=== PATIENT | male | born 1965 | race African-American/Black ===

== ENCOUNTER → 2016-05-27 | Outpatient (CLI) | payer OTHER ==
[~2016-05-27] MED LIST: AMLO10TA2 PO; INSU100V6 SQ; METF500T4 PO; NITR-65 PO; [UNRECOGNIZED DRUG - OTHER]; iron; vitamin c
--- OUTSIDE RECORDS SUMMARY | 2016-05-27 13:56 | XMS REPORT | Continuity of Care Document ---
Author Author [facility] Address Unknown Phone Unavailable Allergies Active Description Code Type Severity Reaction Onset Reported/Identified Relationship to Patient Clinical Status Yes No Known Drug Allergies [id number] Drug Allergy Unknown N/ A 05/18/2015 Medications Problems Date Dx Coded Attending Type Code Diagnosis Diagnosed By 02/28/2013 LATRICE SUPERVISOR BINDERYMINNIE KeatingNDA S 250.02 DIABETES II UNCONTROLLED (UNCOMPLICATED ) 02/28/2013 LATRICE MILLER TERRY S 401.1 HYPERTENSION, BENIGN ESSENTIAL 02/28/2013 LATRICE SUPERVISOR BINDERY, TERRY S V70.0 EXAM - ROUTINE H&P 02/28/2013 LATRICE SUPERVISOR BINDERY, TERRY S 250.02 DIABETES II UNCONTROLLED (UNCOMPLICATED ) 02/28/2013 LATRICE SUPERVISOR BINDERY, TERRY S 401.1 HYPERTENSION, BENIGN ESSENTIAL 02/28/2013 LATRICE SUPERVISOR BINDERY, TERRY S V70.0 EXAM - ROUTINE H&P 02/28/2013 LATRICE SUPERVISOR BINDERY, TERRY S 250.02 DIABETES II UNCONTROLLED (UNCOMPLICATED ) 02/28/2013 LATRICE SUPERVISOR BINDERY, TERRY S 401.1 HYPERTENSION, BENIGN ESSENTIAL 02/28/2013 LATRICE SUPERVISOR BINDERY, TERRY S V70.0 EXAM - ROUTINE H&P 02/28/2013 LATRICE SUPERVISOR BINDERY, TERRY S 250.02 DIABETES II UNCONTROLLED (UNCOMPLICATED ) 02/28/2013 LATRICE SUPERVISOR BINDERY, TERRY S 401.1 HYPERTENSION, BENIGN ESSENTIAL 02/28/2013 LATRICE SUPERVISOR BINDERY, TERRY S V70.0 EXAM - ROUTINE H&P 02/28/2013 LATRICE SUPERVISOR BINDERY, TERRY S 250.02 DIABETES II UNCONTROLLED (UNCOMPLICATED ) 02/28/2013 LATRICE SUPERVISOR BINDERY, TERRY S 401.1 HYPERTENSION, BENIGN ESSENTIAL 02/28/2013 LATRICE SUPERVISOR BINDERY, TERRY S V70.0 EXAM - ROUTINE H&P 02/28/2013 LATRICE SUPERVISOR BINDERY, TERRY S 250.02 DIABETES II UNCONTROLLED (UNCOMPLICATED ) 02/28/2013 LATRICE SUPERVISOR BINDERY, TERRY S 401.1 HYPERTENSION, BENIGN ESSENTIAL 02/28/2013 LATRICE SUPERVISOR BINDERY, TERRY S V70.0 EXAM - ROUTINE H&P 04/06/2013 LATRICE SUPERVISOR BINDERY, TERRY S 285.9 ANEMIA 04/06/2013 LATRICE SUPERVISOR BINDERY, TERRY S 285.9 ANEMIA 04/06/2013 LATRICE SUPERVISOR BINDERY, TERRY S 285.9 ANEMIA 04/06/2013 LATRICE SUPERVISOR BINDERY, TERRY S 285.9 ANEMIA 04/06/2013 LATRICE SUPERVISOR BINDERY, TERRY S 285.9 ANEMIA 04/12/2013 LATRICE SUPERVISOR BINDERY, TERRY S 244.9 HYPOTHYROIDISM 04/12/2013 LATRICE SUPERVISOR BINDERY, TERRY S 250.00 DIABETES MELLITUS TYPE 2 04/12/2013 LATRICE SUPERVISOR BINDERY, TERRY S 244.9 HYPOTHYROIDISM 04/12/2013 LATRICE SUPERVISOR BINDERY, TERRY S 250.00 DIABETES MELLITUS TYPE 2 04/12/2013 LATRICE SUPERVISOR BINDERY, TERRY S 244.9 HYPOTHYROIDISM 04/12/2013 LATRICE SUPERVISOR BINDERY, TERRY S 250.00 DIABETES MELLITUS TYPE 2 04/12/2013 LATRICE SUPERVISOR BINDERY, TERRY S 244.9 HYPOTHYROIDISM 04/12/2013 LATRICE SUPERVISOR BINDERY, TERRY S 250.00 DIABETES MELLITUS TYPE 2 04/12/2013 LATRICE SUPERVISOR BINDERY, TERRY S 244.9 HYPOTHYROIDISM 04/12/2013 LATRICE SUPERVISOR BINDERY, TERRY S 250.00 DIABETES MELLITUS TYPE 2 04/17/2013 LATRICE SUPERVISOR BINDERY, TERRY S 242.90 HYPERTHYROIDISM 04/17/2013 LATRICE SUPERVISOR BINDERY, TERRY S 242.90 HYPERTHYROIDISM 04/17/2013 LATRICE SUPERVISOR BINDERY, TERRY S 242.90 HYPERTHYROIDISM 04/17/2013 LATRICE SUPERVISOR BINDERY, TERRY S 242.90 HYPERTHYROIDISM 03/05/2014 LATRICE SUPERVISOR BINDERY, TERRY S 782.3 EDEMA 03/05/2014 LATRICE SUPERVISOR BINDERY, TERRY S 786.2 COUGH 03/05/2014 LATRICE SUPERVISOR BINDERY, TERRY S 782.3 EDEMA 03/05/2014 TERRY POLLARD APRN S 786.2 COUGH 03/27/2014 TERRY POLLARD APRN S 459.81 VENOUS (PERIPHERAL) INSUFFICIENCY UNSPECIFIED 04/30/2014 TERRY POLLARD HAT FORMER Ot 729.81 06/04/2014 TERRY POLLARD HAT FORMER Ot 729.81 12/28/2014 TERRY POLLARD HAT FORMER Ot 729.81 05/18/2015 JUNI MAKI, SHARMIN T Ot E11.649 05/18/2015 JUNI MAKI, SHARMIN T Ot E87.6 05/18/2015 JUNI MAKI, SHARMIN T Ot I10 05/18/2015 JUNI MAKI, SHARMIN T Ot N17.9 05/18/2015 JUNI MAKI, SHARMIN T Ot N39.0 05/18/2015 TERRY POLLARD HAT FORMER Ot 729.81 05/31/2015 JUNI MAKI, SHARMIN T Ot E11.649 05/31/2015 JUNI MAKI, SHARMIN T Ot E87.6 05/31/2015 JUNI MAKI, SHARMIN T Ot I10 05/31/2015 JUNI MAKI, SHARMIN T Ot N17.9 05/31/2015 JUNI MAKI, SHARMIN T Ot N39.0 Procedures Code Description [place] [address] A1C (IN-HOUSE) 59508 MICRO ALBUMIN-IN HOUSE 02/28/2013 39234 MICROALBUMIN 92150 ROUTINE VENIPUNCTURE 04/06/2013 IRGROUP IRON GROUP (Iron,TIBC, Ferritin) 04/06/2013 [id number] GFR CALC (RESULT ONLY) 04/06/2013 45702 CMP 04/06/2013 83282 LIPID PANEL 04/06 42436 CBC 04/06/2013 77652 TSH 04/06/2013 62123 C-PEPTIDE 2013 34030 IRON SERUM 2013 92732 IRON BNDNG CAP 76143 FERRITIN 2013 50474 ROUTINE VENIPUNCTURE 03/05/2014 69740 MICRO ALBUMIN-IN HOUSE 03/05/2014 88374 A1C (IN-HOUSE) 04691 CBC 03/06/2014 24641 URIC ACID 2013 21881 MICROALBUMIN Results Encounters ACCT No. Visit Date/Time Discharge Status Pt. Type Provider Facility Loc./Unit Complaint [id number] 03/27/2014 11:38:00 03/27/2014 23: 59:59 CLS Outpatient TERRY POLLARD APRN [id number] 03/05/2014 16:08:00 03/05/2014 23: 59:59 CLS Outpatient TERRY POLLARD APRN [id number] 10/24/2013 14:36:00 10/24/2013 23: 59:59 CLS Outpatient TERRY POLLARD APRN [id number] 04/17/2013 09:43:00 04/17/2013 23: 59:59 CLS Outpatient TERRY POLLARD APRN [id number] 04/06/2013 09:25:00 04/06/2013 23: 59:59 CLS Outpatient TERRY POLLARD APRN [id number] 02/28/2013 09:49:00 02/28/2013 23: 59:59 CLS Outpatient TERRY POLLARD APRN
--- NOTE | 2016-05-27 16:10 | Diagnostic Imaging Report ---
Bilateral renal ultrasound. INDICATION: Chronic renal failure. FINDINGS: The right kidney is 9.1 cm and the left kidney is 8.2 cm in length. The lower pole of the left kidney is not well seen. There is no hydronephrosis or focal lesion. There is diffuse significant wall thickening of the urinary bladder which may relate to cystitis. IMPRESSION: Diffuse thickening of the urinary bladder wall suggestive of cystitis. Dictated by: Dictated on workstation # [id number]
== END ==
LOC: RAD 13:52
PROVIDERS: ATTEND Nurse Practitioner
DX: N32.9 Bladder disorder, unspecified (principal); I12.9 Hypertensive chronic kidney disease with stage 1 through stage 4 chronic kidney disease, or unspecified chronic kidney disease; N18.4 Chronic kidney disease, stage 4 (severe); D64.9 Anemia, unspecified; E88.09 Other disorders of plasma-protein metabolism, not elsewhere classified; E83.39 Other disorders of phosphorus metabolism; E87.5 Hyperkalemia
CPT/HCPCS: 76770

== ENCOUNTER 2016-06-28 08:03 | Emergency (ER) | payer OTHER ==
[~2016-06-28] VITALS: Ht 170.2 cm; Wt 86.2 kg
[2016-06-28 08:37] LABS: BASOPHILS % (AUTO) 0 % (0-10); EOSINOPHILS # (AUTO) 0.2 10^3/uL (0.0-0.3); EOSINOPHILS % (AUTO) 2 % (0-10); LYMPHOCYTES % (AUTO) 20 % (12-44); MEAN CORPUSCULAR HEMOGLOBIN 25 PG (25-34); MEAN CORPUSCULAR HGB CONC 34 G/DL (32-36); MEAN CORPUSCULAR VOLUME 73 FL (80-99); MEAN PLATELET VOLUME 9.5 FL (7.4-10.4); MONOCYTES % (AUTO) 11 % (0-12); NEUTROPHILS # (AUTO) 6.5 X 10^3 (1.8-7.8); NEUTROPHILS % (AUTO) 67 % (42-75); PLATELET COUNT 269 10^3/uL (130-400); RED BLOOD COUNT 3.64 10^6/uL (4.35-5.85); RED CELL DISTRIBUTION WIDTH 16.2 % (10.0-14.5); WHITE BLOOD COUNT 9.7 10^3/uL (4.3-11.0)
--- NOTE | 2016-06-28 08:42 | ED Lower Extremity ---
General Chief Complaint: Lower Extremity Stated Complaint: LEG SWELLING Source: patient (PT IS LIMITED HISTORIAN), other (SON GIVES MOST INFORMATION) History of Present Illness Time seen by provider: 08:08 Initial Comments PT ARRIV[place] [facility] AND [employer]NER WAS DOING FOOT WASHING AND NOTED THAT PT'S LEGS WERE SWOLLEN AND BROUGHT HIM TO ER PT HAS CHRONIC LEG SWELLING AND HAS BEEN WORSE FOR 1 1/2 MONTHS HAS CHRONIC LEG PAIN, WORSE FOR 1 1/2 MONTHS--HAS NEUROPATHY, HAS NOT TAKEN ANYTHING FOR PAIN HAS BEEN SHORT OF BREATH FOR AT LEAST 2 MONTHS NO CHEST PAIN NO FEVER NO WOUNDS TO LEGS PT HAS STAGE 4 RENAL FAILURE AND 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 --IS NOT ON DIALYSIS YET PT STATES NONE OF THESE SYMPTOMS ARE DIFFERENT IN ANY WAY AND HIS DRS ARE AWARE , HAVE DISCUSSED MEDICATION CHANGES, BUT HAVE NOT DONE ANY CHANGES YET PT HAS NOT TAKEN ANY OF HIS MEDICATIONS TODAY PCP: RYAN, THOMAS POLLARD WIRE MACHINE OPERATOR: ANDRES COSME Allergies and Home Medications Allergies Coded Allergies: No Known Drug Allergies (Unverified , 05/18/15) Home Medications Amlodipine Besylate 10 Mg Tablet, 10 MG PO DAILY, #1 Prescribed by: DEONTE PITTS on 05/18/152010 Insulin Glargine,Hum.rec.anlog 100 Unit/1 Ml Vial, 10 UNIT SQ HS, (Reported) Metformin HCl 500 Mg Tablet, 500 MG PO BID, (Reported) Nitrofurantoin Monohyd/M-Cryst 100 Mg Capsule, 1 TAB PO BID, #10 Prescribed by: DEONTE PITTS on 05/18/152010 [bp med x 2] , (Reported) [iron] , (Reported) [vitamin c] , (Reported) Constitutional: no symptoms reported Respiratory: see HPI Cardiovascular: No chest pain, edema, No palpitations, No syncope, No vascular heart diseas Gastrointestinal: no symptoms reported Musculoskeletal: see HPI Skin: no symptoms reported Psychiatric/Neurological: See HPI, Pre-Existing Deficit Past Tcxshzj-Pzonek-Haxicr Hx Patient Social History Alcohol Use: Denies Use Recreational Drug Use: No Smoking Status: Never a Smoker 2nd Hand Smoke Exposure: No Recent Foreign Travel: No Contact w/Someone Who Travel: No Recent Hopitalizations: No Surgeries HX Surgeries: No Respiratory Hx Respiratory Disorders: No Cardiovascular Hx Cardiac Disorders: Yes (CHRONIC VENOUS INSUFFICIENCY) Cardiac Disorders: Hypertension, Peripheral Vascular Neurological Hx Neurological Disorders: Yes Neurological Disorders: Neuropathy Genitourinary Hx Genitourinary Disorders: Yes Genitourinary Disorders: Renal Failure Gastrointestinal Hx Gastrointestinal Disorders: No Musculoskeletal Hx Musculoskeletal Disorders: Yes (LEFT CHARCOT FOOT) Endocrine Hx Endocrine Disorders: Yes Endocrine Disorders: Diabetes, Insulin dep HEENT HX ENT Disorders: No Cancer Hx Cancer: No Psychosocial Hx Psychiatric Problems: No Blood Transfusions Hx Blood Disorders: Yes (iron deficiency anemia) Physical Exam Vital Signs Vital Sign - Last 12Hours 06/28/16 08:10 Temp 98.1 Pulse 89 Resp 20 B/P (MAP) 170/90 Pulse Ox 97 O2 Delivery Room Air Capillary Refill : General Appearance: WD/WN, no apparent distress, other (SMILING, TALKATIVE) Cardiovascular: no JVD, no murmur, other (REGULARLY IRREGULAR--BIGEMINY ON MONITOR) Respiratory: normal breath sounds, no respiratory distress, no accessory muscle use Gastrointestinal: normal bowel sounds, non tender, soft Legs: bilateral leg non-tender, bilateral leg other (3+ EDEMA ON RIGHT, 2+ EDEMA ON LEFT. CHRONIC VENOUS STASIS CHANGES BILATERALLY WITH VERY HARD/WOODY INDURATION. 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, no motor/sensory deficits, alert, normal mood/affect, oriented x 3 Skin: normal color, warm/dry Progress/Results/Core Measures Results/Orders Lab Results Laboratory Tests Test 06/28/16 08:30 Range/Units White Blood Count 9.7 4.3-11.0 10^3/uL Red Blood Count 3.64 L 4.35-5.85 10^6/uL Hemoglobin 8.9 L 13.3-17.7 G/DL Hematocrit 26 L 40-54 % Mean Corpuscular Volume 73 L 80-99 FL Mean Corpuscular Hemoglobin 25 25-34 PG Mean Corpuscular Hemoglobin Concent 34 32-36 G/DL Red Cell Distribution Width 16.2 H 10.0-14.5 % Platelet Count 269 130-400 10^3/uL Mean Platelet Volume 9.5 7.4-10.4 FL Neutrophils (%) (Auto) 67 42-75 % Lymphocytes (%) (Auto) 20 12-44 % Monocytes (%) (Auto) 11 0-12 % Eosinophils (%) (Auto) 2 0-10 % Basophils (%) (Auto) 0 0-10 % Neutrophils # (Auto) 6.5 1.8-7.8 X 10^3 Lymphocytes # (Auto) 2.0 1.0-4.0 X 10^3 Monocytes # (Auto) 1.0 0.0-1.0 X 10^3 Eosinophils # (Auto) 0.2 0.0-0.3 10^3/uL Basophils # (Auto) 0.0 0.0-0.1 10^3/uL Prothrombin Time 15.9 H 12.2-14.7 SEC INR Comment 1.3 0.8-1.4 Activated Partial Thromboplast Time 32 24-35 SEC Sodium Level 139 135-145 MMOL/L Potassium Level 5.0 3.6-5.0 MMOL/L Chloride Level 110 H 98-107 MMOL/L Carbon Dioxide Level 17 L 21-32 MMOL/L Anion Gap 12 5-14 MMOL/L Blood Urea Nitrogen 53 H 7-18 MG/DL Creatinine 4.76 H 0.60-1.30 MG/DL Estimat Glomerular Filtration Rate 16 BUN/Creatinine Ratio 11 Glucose Level 194 H 70-105 MG/DL Calcium Level 6.9 L 8.5-10.1 MG/DL Magnesium Level 1.8 1.8-2.4 MG/DL Total Bilirubin 0.7 0.1-1.0 MG/DL Aspartate Amino Transf (AST/SGOT) 18 5-34 U/L Alanine Aminotransferase (ALT/SGPT) 22 0-55 U/L Alkaline Phosphatase 161 H 40-136 U/L Troponin I < 0.30 <0.30 NG/ML B-Type Natriuretic Peptide 3956.7 H <100.0 PG/ML Total Protein 6.3 L 6.4-8.2 G/DL Albumin 3.4 3.2-4.5 G/DL My Orders Orders - VIKY WALDEN DO Saline Lock/Iv-Start (06/28/16 08:08) Ekg Tracing (06/28/16 08:08) Monitor-Rhythm Ecg Trace Only (06/28/16 08:08) BNP (06/28/16 08:08) Cbc With Automated Diff (06/28/16 08:08) Comprehensive Metabolic Panel (06/28/16 08:08) Magnesium (06/28/16 08:08) Protime With Inr (06/28/16 08:08) Partial Thromboplastin Time (06/28/16 08:08) Troponin I (06/28/16 08:08) Chest Pa/Lat (2 View) (06/28/16 08:08) Us Venous Lower Ext Rt (06/28/16 08:26) Furosemide Injection (Lasix Injection) (06/28/16 10:00) Vital Signs/I&O Vital Sign - Last 12Hours 06/28/16 08:10 Temp 98.1 Pulse 89 Resp 20 B/P (MAP) 170/90 Pulse Ox 97 O2 Delivery Room Air ECG Initial ECG Impression Time: 08:21 Initial ECG Comparisson: No Previous ECG Available Comment BIGEMINY NO ST SEGMENT CHANGES Diagnostic Imaging Comments CXR--TINY BILATERAL PLEURAL EFFUSIONS, OTHERWISE NO ACUTE PROCESS, PER RADIOLOGIST REPORT @ 0915 ULTRASOUND RIGHT LEG--NO DVT PER RADIOLOGIST REPORT @ 0948 Reviewed: Reviewed by Me Departure Impression Impression: Primary Impression: CHRONIC LEG EDEMA Additional Impressions: Chronic renal failure Chronic venous insufficiency Disposition: 01 HOME, SELF-CARE Condition: Stable Departure-Patient Inst. Referrals: [facility] (PCP/Family) Primary Care Physician Patient Instructions: Dependent Edema (DC), Kidney Failure (DC) Add. Discharge Instructions: ELEVATE LEGS MUCH POSSIBLE INCREASE YOUR LASIX TO 2 PILLS A DAY FOLLOW UP WITH YOUR DR AT [facility] AND YOUR WIRE MACHINE OPERATOR THIS WEEK FOR FURTHER CARE All discharge instructions reviewed with patient and/or family. Voiced understanding. VIKY WALDEN DO Jun 28, 2016 08:42
[2016-06-28 08:46] LABS: INR 1.3 (0.8-1.4); PROTHROMBIN TIME PATIENT 15.9 SEC (12.2-14.7)
[2016-06-28 08:54] LABS: ALANINE AMINOTRANSFERASE 22 U/L (0-55); ALBUMIN 3.4 G/DL (3.2-4.5); ANION GAP 12 MMOL/L (5-14); ASPARTATE AMINO TRANSFERASE 18 U/L (5-34); BILIRUBIN,TOTAL 0.7 MG/DL (0.1-1.0); BLOOD UREA NITROGEN 53 MG/DL (7-18); BUN/CREATININE RATIO 11; CALCIUM 6.9 MG/DL (8.5-10.1); CARBON DIOXIDE 17 MMOL/L (21-32); CHLORIDE 110 MMOL/L (98-107); CREATININE SERUM 4.76 MG/DL (0.60-1.30); GFR ESTIMATED 16; GLUCOSE 194 MG/DL (70-105); MAGNESIUM 1.8 MG/DL (1.8-2.4); SODIUM 139 MMOL/L (135-145); TOTAL PROTEIN 6.3 G/DL (6.4-8.2)
--- NOTE | 2016-06-28 08:55 | Diagnostic Imaging Report ---
EXAM: CHEST PA/LAT (2 VIEW) INDICATION: Left lower extremity swelling. COMPARISON: None. FINDINGS: Normal heart size and pulmonary vascularity. Tiny bilateral pleural effusions or thickening. No focal pulmonary opacity or pneumothorax. Osseous structures are unremarkable. IMPRESSION: Tiny bilateral pleural effusions or thickening. Remainder negative. Dictated by: Dictated on workstation # [id number]
[2016-06-28 08:59] LABS: TROPONIN I < 0.30 NG/ML (<0.30)
--- NOTE | 2016-06-28 09:47 | Diagnostic Imaging Report ---
PROCEDURE: US right lower extremity venous. TECHNIQUE: Multiple real-time grayscale images were obtained over the right lower extremity in various projections. Additional duplex Doppler and color Doppler images were also obtained. INDICATION: Right lower extremity swelling. COMPARISON: None. FINDINGS: The right common femoral vein, superficial femoral vein, profunda femoris, and popliteal veins are normal. These vessels show normal compressibility, color flow, and doppler augmentation. The deep calf veins, although not very well seen, demonstrate no distinct intraluminal thrombus. IMPRESSION: Negative venous Doppler of the right lower extremity. Dictated by: Dictated on workstation # [id number]
[2016-06-28] MEDS ORDERED: FUROSEMIDE 40 MG/4 ML INJ (LASIX) IVP ONE (10:00)
[2016-06-28 10:30] VITALS: BP 209/117
== END 2016-06-28 10:30 | disposition home or self-care (01) ==
LOC: EDUNIT# 08:03 → ER 08:04
DX: R22.43 Localized swelling, mass and lump, lower limb, bilateral (principal); I12.9 Hypertensive chronic kidney disease with stage 1 through stage 4 chronic kidney disease, or unspecified chronic kidney disease; N18.4 Chronic kidney disease, stage 4 (severe); E11.40 Type 2 diabetes mellitus with diabetic neuropathy, unspecified; I87.2 Venous insufficiency (chronic) (peripheral); Z79.84 Long term (current) use of oral hypoglycemic drugs; Z79.4 Long term (current) use of insulin; Z79.899 Other long term (current) drug therapy
CPT/HCPCS: 36415; 71020; 80053; 83735; 83880; 84484; 85025; 85610; 85730; 93005; 93041; 96374

== ENCOUNTER 2017-03-28 14:04 | Emergency (ER) | payer SELFPAY ==
[~2017-03-28] VITALS: Ht 172.7 cm; Wt 74.8 kg
--- OUTSIDE RECORDS SUMMARY | 2017-03-28 14:09 | XMS REPORT ---
Author Author TERRY POLLARD [facility] Address [address] [place] [address] Care Team Providers Care Wrapping Machine Helper Name Role Phone TERRY POLLARD Unavailable PROBLEMS Type Condition ICD9-CM Code [id number] Code Onset Dates Condition Status SNOMED Code Problem Charcot foot due to diabetes mellitus E11.610 Active 75633430 Problem Type II or unspecified type diabetes mellitus with neurological manifestations, not stated as uncontrolled E11.49 Active 83837702 Problem Wqjjvnx-Kpxmd-Njhqz disease-like deformity of foot 356.1 Active 344274746 Problem Retinopathy due to secondary diabetes mellitus, with macular edema, 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 Active 9578296 Problem Chronic renal failure, unspecified stage N18.9 Active 95956199 Problem Type 2 diabetes mellitus without complications E11.9 Active 009926490 Problem Type 2 diabetes mellitus with diabetic chronic kidney disease, 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
--- OUTSIDE RECORDS SUMMARY | 2017-03-28 14:09 | XMS REPORT ---
Author Author TERRY POLLARD [facility] Address [address] [place] [address] Care Team Providers Care Tire Cord Weaver Name Role Phone TERRY POLLARD Unavailable PROBLEMS Type Condition ICD9-CM Code KYW38-SL Code Onset Dates Condition Status SNOMED Code Problem Charcot foot due to diabetes mellitus E11.610 Active 86302215 Problem Type II or unspecified type diabetes mellitus with neurological manifestations, not stated as uncontrolled E11.49 Active 89106311 Problem Gifotgg-Jdumq-Xzhzz disease-like deformity of foot 356.1 Active 485296021 Problem Retinopathy due to secondary diabetes mellitus, with macular edema, 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 Active 0506499 Problem Chronic renal failure, unspecified stage N18.9 Active 37422588 Problem Type 2 diabetes mellitus without complications E11.9 Active 939372661 Problem Type 2 diabetes mellitus with diabetic chronic kidney disease, 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 Protein,Total,Urine 439.6 Not Estab. Protein/Creat Ratio 6218 0-200 UA W/ MICROSCOPY 2016-05-15 Specific Boody 1.016 1.005-1.030 pH 6.5 5.0-7.5 Urine-Color Yellow Yellow Appearance Clear Clear WBC Esterase Negative Negative Protein 4+ Negative/Trace Glucose Negative Negative Ketones Negative Negative Occult Blood 2+ Negative Bilirubin Negative Negative Urobilinogen,Semi-Qn 0.2 0.2-1.0 Nitrite, Urine Negative Negative Microscopic Examination See below: WBC 0-5 0 - 5 RBC 11-30 0 - 2 Epithelial Cells (non renal) None seen 0 - 10 Mucus Threads Present Not Estab. Bacteria Few None seen/Few CBC 2016-05-15 WBC 7.8 3.4-10.8 RBC 2.86 4.14-5.80 Hemoglobin 7.5 12.6-17.7 Hematocrit 22.6 37.5-51.0 MCV 79 79-97 MCH 26.2 26.6-33.0 MCHC 33.2 31.5-35.7 RDW 17.5 12.3-15.4 Platelets 236 150-379 Neutrophils 69 Lymphs 22 Monocytes 7 Eos 2 Basos 0 Neutrophils (Absolute) 5.3 1.4-7.0 Lymphs (Absolute) 1.8 0.7-3.1 Monocytes(Absolute) 0.6 0.1-0.9 Eos (Absolute) 0.2 0.0-0.4 Baso (Absolute) 0.0 0.0-0.2 Immature Granulocytes 0 Immature Grans (Abs) 0.0 0.0-0.1 RENAL PROFILE 2016-05-15 Glucose, Serum 83 65-99 BUN 35 6-24 Creatinine, Serum 4.06 0.76-1.27 eGFR If NonAfricn Am 16 >59 eGFR If Africn Am 19 >59 BUN/Creatinine Ratio 9 9-20 Sodium, Serum 141 134-144 Potassium, Serum 6.1 3.5-5.2 Chloride, Serum 107 96-106 Carbon Dioxide, Total 18 18-29 Calcium, Serum 6.8 8.7-10.2 Phosphorus, Serum 5.6 2.5-4.5 Albumin, Serum 3.7 3.5-5.5 PROCEDURES Procedure Date Ordered Result Body Site ASSAY OF PROTEIN, URINE May 15, 2016 ASSAY OF URINE CREATININE May 15, 2016 COMPLETE CBC W/AUTO DIFF WBC May 15, 2016 URINALYSIS, AUTO W/SCOPE May 15, 2016 VENIPUNCT, ROUTINE* May 15, 2016 RENAL FUNCTION PANEL May 15, 2016 IMMUNIZATIONS No Known Immunizations MEDICAL (GENERAL) HISTORY Type Description Date Medical History diabetes Type II Medical History hypertension Medical History Charcot foot due to diabetes mellitus Hospitalization History ER for low blood sugar 05/28
--- OUTSIDE RECORDS SUMMARY | 2017-03-28 14:10 | XMS REPORT ---
Author Author TERRY POLLARD [facility] Address [address] [place] [address] Care Team Providers Care Hotel Housekeeper Name Role Phone TERRY POLLARD Unavailable PROBLEMS Type Condition ICD9-CM Code ZMU69-BM Code Onset Dates Condition Status SNOMED Code Problem Charcot foot due to diabetes mellitus E11.610 Active 52507415 Problem Type II or unspecified type diabetes mellitus with neurological manifestations, not stated as uncontrolled E11.49 Active 35139566 Problem Bpporjv-Jsunk-Qzyrw disease-like deformity of foot 356.1 Active 328987252 Problem Retinopathy due to secondary diabetes mellitus, with macular edema, 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 Active 9767468 Problem Chronic renal failure, unspecified stage N18.9 Active 91007523 Problem Type 2 diabetes mellitus without complications E11.9 Active 555495979 Problem Type 2 diabetes mellitus with diabetic chronic kidney disease, 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
--- OUTSIDE RECORDS SUMMARY | 2017-03-28 14:10 | XMS REPORT ---
Author Author TERRY POLLARD [facility] Address [address] [place] [address] Care Team Providers Care Ferryboat Captain Name Role Phone TERRY POLLARD Unavailable PROBLEMS Type Condition ICD9-CM Code ESM84-ND Code Onset Dates Condition Status SNOMED Code Problem Charcot foot due to diabetes mellitus E11.610 Active 96061620 Problem Type II or unspecified type diabetes mellitus with neurological manifestations, not stated as uncontrolled E11.49 Active 62332054 Problem Qjoghwo-Goqtl-Zzajd disease-like deformity of foot 356.1 Active 796886412 Problem Retinopathy due to secondary diabetes mellitus, with macular edema, 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 Active 7763119 Problem Chronic renal failure, unspecified stage N18.9 Active 50983698 Problem Type 2 diabetes mellitus without complications E11.9 Active 509586921 Problem Type 2 diabetes mellitus with diabetic chronic kidney disease, 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 Active 537649743 Problem Charcot ankle M14.679 Active 299714783 Problem History of hypothyroidism Z86.39 Active 860390053 Problem Essential hypertension I10 Active 39558928 ALLERGIES No Information SOCIAL HISTORY Never Assessed PLAN OF CARE VITAL SIGNS MEDICATIONS Medication Instructions Dosage Frequency Start Date End Date Duration Status Norvasc 10 mg Orally Once a day 1 tablet 24h Mar, 30 day(s) Active FreeStyle Lite - Active FreeStyle Lite Test N/A In Vitro 2 times a day test blood sugar 12h Active Sodium Bicarbonate 325 MG Orally 2 times a day 1 tablet 12h Active Levemir FlexTouch 100 UNIT/ML Subcutaneous once a day at HS 10 units Active Lovastatin 40 mg TAKE ONE TABLET BY MOUTH ONCE DAILY Active Lasix 20 MG Orally Once a day 1 tablet 24h Active Metoprolol Succinate ER 100 MG Orally Once a day 1 tablet 24h Active Tums 500 MG 2 tablets with meals and 1 tablet with snacks Active RESULTS No Results PROCEDURES No Known procedures IMMUNIZATIONS No Known Immunizations MEDICAL (GENERAL) HISTORY Type Description Date Medical History diabetes Type II Medical History hypertension Medical History Charcot foot due to diabetes mellitus Hospitalization History ER for low blood sugar 05/28
--- OUTSIDE RECORDS SUMMARY | 2017-03-28 14:10 | XMS REPORT ---
Author Author TERRY POLLARD [facility] Address [address] [place] [address] Care Team Providers Care Log Haul Operator Name Role Phone TERRY POLLARD Unavailable PROBLEMS Type Condition ICD9-CM Code MQD09-IP Code Onset Dates Condition Status SNOMED Code Problem Charcot foot due to diabetes mellitus E11.610 Active 82760569 Problem Type II or unspecified type diabetes mellitus with neurological manifestations, not stated as uncontrolled E11.49 Active 83312962 Problem Haadbgu-Jgdkg-Besvp disease-like deformity of foot 356.1 Active 077613778 Problem Retinopathy due to secondary diabetes mellitus, with macular edema, 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 Active 0056493 Problem Chronic renal failure, unspecified stage N18.9 Active 51727061 Problem Type 2 diabetes mellitus without complications E11.9 Active 531212999 Problem Type 2 diabetes mellitus with diabetic chronic kidney disease, 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 Unknown Non Drug Allergy Mar, Unknown SOCIAL HISTORY No smoking Hx information available PLAN OF CARE Activity Details Follow Up 4 Weeks Reason:BP VITAL SIGNS Height 64 in 2016-03-26 Weight 175.0 lbs 2016-03-26 Temperature 98.7 degrees Fahrenheit 2016-03-26 Heart Rate 82 bpm 2016-03-26 Respiratory Rate 20 2016-03-26 BMI 30.04 kg/m2 2016-03-26 Blood pressure systolic 194 mmHg 2016-03-26 Blood pressure diastolic 92 mmHg 2016-03-26 MEDICATIONS Medication Instructions Dosage Frequency Start Date End Date Duration Status Lovastatin 40 mg TAKE ONE TABLET BY MOUTH ONCE DAILY Active Norvasc 10 mg Orally Once a day 1 tablet 24h Mar, 30 day(s) Active FreeStyle Lite - Active Levemir FlexTouch 100 UNIT/ML Subcutaneous once a day at HS 10 units Active FreeStyle Lite Test N/A In Vitro 2 times a day test blood sugar 12h Active RESULTS Name Result Date Reference Range A1C (IN HOUSE) 2016-03-26 A1C IN HOUSE 6.5 4.3 - 5.6 % Previous A1c 6.1 Lot [id number] Exp date 01/2018 MICROALBUMIN, URINE (IN HOUSE) 2016-03-26 MICROALBUMIN abnormal Lot # [id number] Exp date 03/2017 Clarity clear Color yellow ALB 150 CRE 300 A:C (IN HOUSE) 30-300 Control + Control Lot # Exp MICROALBUMIN/CREATININE RATIO, URINE 2016-03-26 Creatinine, Urine 189.0 Not Estab. Microalbumin, Urine 5638.4 Not Estab. Microalb/Creat Ratio 2983.3 0.0-30.0 CBC 2016-03-26 WBC 8.7 3.4-10.8 RBC 2.93 4.14-5.80 Hemoglobin 7.7 12.6-17.7 Hematocrit 23.1 37.5-51.0 MCV 79 79-97 MCH 26.3 26.6-33.0 MCHC 33.3 31.5-35.7 RDW 16.5 12.3-15.4 Platelets 283 150-379 Neutrophils 73 Lymphs 19 Monocytes 7 Eos 1 Basos 0 Neutrophils (Absolute) 6.3 1.4-7.0 Lymphs (Absolute) 1.7 0.7-3.1 Monocytes(Absolute) 0.6 0.1-0.9 Eos (Absolute) 0.1 0.0-0.4 Baso (Absolute) 0.0 0.0-0.2 Immature Granulocytes 0 Immature Grans (Abs) 0.0 0.0-0.1 CMP 2016-03-26 Glucose, Serum 156 65-99 BUN 27 6-24 Creatinine, Serum 3.49 0.76-1.27 eGFR If NonAfricn Am 19 >59 eGFR If Africn Am 22 >59 BUN/Creatinine Ratio 8 9-20 Sodium, Serum 140 134-144 Potassium, Serum 5.2 3.5-5.2 Chloride, Serum 104 96-106 Carbon Dioxide, Total 21 18-29 Calcium, Serum 6.7 8.7-10.2 Protein, Total, Serum 5.8 6.0-8.5 Albumin, Serum 3.2 3.5-5.5 Globulin, Total 2.6 1.5-4.5 A/G Ratio 1.2 1.1-2.5 Bilirubin, Total <0.2 0.0-1.2 Alkaline Phosphatase, S 122 39-117 AST (SGOT) 20 0-40 ALT (SGPT) 14 0-44 PROCEDURES Procedure Date Ordered Related Diagnosis Body Site GLYCATED HEMOGLOBIN TEST Mar 26, 2016 MICROALBUMIN, SEMIQUANT Mar 26, 2016 VENIPUNCT, ROUTINE* Mar 26, 2016 Office Visit, Est Pt., Level 3 Mar 26, 2016 MICROALBUMIN, QUANTITATIVE Mar 26, 2016 ASSAY OF URINE CREATININE Mar 26, 2016 COMPREHEN METABOLIC PANEL Mar 26, 2016 COMPLETE CBC W/AUTO DIFF WBC Mar 26, 2016 IMMUNIZATIONS No Known Immunizations
--- OUTSIDE RECORDS SUMMARY | 2017-03-28 14:10 | XMS REPORT ---
Author Author TERRY POLLARD [facility] Address [address] [place] [address] Care Team Providers Care Facility Maintenance Helper Name Role Phone TERRY POLLARD Unavailable PROBLEMS Type Condition ICD9-CM Code GMB17-AP Code Onset Dates Condition Status SNOMED Code Problem Charcot foot due to diabetes mellitus E11.610 Active 19057195 Problem Type II or unspecified type diabetes mellitus with neurological manifestations, not stated as uncontrolled E11.49 Active 81278736 Problem Gugndyi-Sjzyd-Xujjn disease-like deformity of foot 356.1 Active 873005280 Problem Retinopathy due to secondary diabetes mellitus, with macular edema, 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 Active 5849678 Problem Chronic renal failure, unspecified stage N18.9 Active 73786116 Problem Type 2 diabetes mellitus without complications E11.9 Active 471232412 Problem Type 2 diabetes mellitus with diabetic chronic kidney disease, 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
--- OUTSIDE RECORDS SUMMARY | 2017-03-28 14:10 | XMS REPORT ---
Author Author TERRY POLLARD [facility] Address [address] [place] [address] Care Team Providers Care Chief Media Officer Name Role Phone TERRY POLLARD Unavailable PROBLEMS Type Condition ICD9-CM Code INV03-SV Code Onset Dates Condition Status SNOMED Code Problem Charcot foot due to diabetes mellitus E11.610 Active 54706367 Problem Type II or unspecified type diabetes mellitus with neurological manifestations, not stated as uncontrolled E11.49 Active 88679909 Problem Twdphrx-Vxtgk-Mdfwk disease-like deformity of foot 356.1 Active 291819250 Problem Retinopathy due to secondary diabetes mellitus, with macular edema, 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 Active 0520938 Problem Chronic renal failure, unspecified stage N18.9 Active 74799739 Problem Type 2 diabetes mellitus without complications E11.9 Active 193093085 Problem Type 2 diabetes mellitus with diabetic chronic kidney disease, 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
--- OUTSIDE RECORDS SUMMARY | 2017-03-28 14:10 | XMS REPORT ---
Author Author ROULA GARCIA [facility] Address [address] [place] [address] Care Team Providers Care Advertising Space Clerk Name Role Phone ROULA GARCIA Unavailable PROBLEMS Type Condition ICD9-CM Code QWC53-MU Code Onset Dates Condition Status SNOMED Code Problem Jxinsva-Xkavj-Jqpft disease-like deformity of foot 356.1 Active 666037597 Problem Type II or unspecified type diabetes mellitus with neurological manifestations, not stated as uncontrolled E11.49 Active 45432992 Problem Retinopathy due to secondary diabetes mellitus, with macular edema, 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 Active 1606496 Problem Dialysis patient Z99.2 Active 815837453 Problem Charcot foot due to diabetes mellitus E11.610 Active 81286417 Problem Chronic renal failure, unspecified stage N18.9 Active 78368879 Problem Type 2 diabetes mellitus without complications E11.9 Active 220932301 Problem Type 2 diabetes mellitus with diabetic chronic kidney disease, 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
--- OUTSIDE RECORDS SUMMARY | 2017-03-28 14:11 | XMS REPORT | Continuity of Care Document ---
Author Author [facility] Address Unknown Phone Unavailable Allergies Active Description Code Type Severity Reaction Onset Reported/Identified Relationship to Patient Clinical Status Yes No Known Drug Allergies [id number] Drug Allergy Unknown N/A 05/18/2015 Medications There is no data. Problems Date Dx Coded Attending Type Code Diagnosis Diagnosed By 02/28/2013 MINNIE POLLARD APRNNDA S 250.02 DIABETES II UNCONTROLLED (UNCOMPLICATED) 02/28/2013 LATRICE FIELD ARTILLERY BASIC, TERRY S 401.1 HYPERTENSION, BENIGN ESSENTIAL 02/28/2013 LATRICE FIELD ARTILLERY BASIC, TERRY S V70.0 EXAM - ROUTINE H&P 02/28/2013 LATRICE MILLER TERRY S 250.02 DIABETES II UNCONTROLLED (UNCOMPLICATED) 02/28/2013 LATRICE MILLER TERRY S 401.1 HYPERTENSION, BENIGN ESSENTIAL 02/28/2013 LATRICE FIELD ARTILLERY BASIC, TERRY S V70.0 EXAM - ROUTINE H&P 02/28/2013 LATRICE FIELD ARTILLERY BASIC, TERRY S 250.02 DIABETES II UNCONTROLLED (UNCOMPLICATED) 02/28/2013 LATRICE FIELD ARTILLERY BASIC, TERRY S 401.1 HYPERTENSION, BENIGN ESSENTIAL 02/28/2013 LATRICE FIELD ARTILLERY BASIC, TERRY S V70.0 EXAM - ROUTINE H&P 02/28/2013 LATRICE FIELD ARTILLERY BASIC, TERRY S 250.02 DIABETES II UNCONTROLLED (UNCOMPLICATED) 02/28/2013 LATRICE FIELD ARTILLERY BASIC, TERRY S 401.1 HYPERTENSION, BENIGN ESSENTIAL 02/28/2013 LATRICE FIELD ARTILLERY BASIC, TERRY S V70.0 EXAM - ROUTINE H&P 02/28/2013 LATRICE FIELD ARTILLERY BASIC, TERRY S 250.02 DIABETES II UNCONTROLLED (UNCOMPLICATED) 02/28/2013 LATRICE FIELD ARTILLERY BASIC, TERRY S 401.1 HYPERTENSION, BENIGN ESSENTIAL 02/28/2013 LATRICE FIELD ARTILLERY BASIC, TERRY S V70.0 EXAM - ROUTINE H&P 02/28/2013 LATRICE FIELD ARTILLERY BASIC, TERRY S 250.02 DIABETES II UNCONTROLLED (UNCOMPLICATED) 02/28/2013 LATRICE FIELD ARTILLERY BASIC, TERRY S 401.1 HYPERTENSION, BENIGN ESSENTIAL 02/28/2013 LATRICE FIELD ARTILLERY BASIC, TERRY S V70.0 EXAM - ROUTINE H&P 04/06/2013 LATRICE FIELD ARTILLERY BASIC, TERRY S 285.9 ANEMIA 04/06/2013 LATRICE FIELD ARTILLERY BASIC, TERRY S 285.9 ANEMIA 04/06/2013 LATRICE FIELD ARTILLERY BASIC, TERRY S 285.9 ANEMIA 04/06/2013 LATRICE FIELD ARTILLERY BASIC, TERRY S 285.9 ANEMIA 04/06/2013 LATRICE FIELD ARTILLERY BASIC, TERRY S 285.9 ANEMIA 04/12/2013 LATRICE FIELD ARTILLERY BASIC, TERRY S 244.9 HYPOTHYROIDISM 04/12/2013 LATRICE FIELD ARTILLERY BASIC, TERRY S 250.00 DIABETES MELLITUS TYPE 2 04/12/2013 LATRICE FIELD ARTILLERY BASIC, TERRY S 244.9 HYPOTHYROIDISM 04/12/2013 LATRICE FIELD ARTILLERY BASIC, TERRY S 250.00 DIABETES MELLITUS TYPE 2 04/12/2013 LATRICE FIELD ARTILLERY BASIC, TERRY S 244.9 HYPOTHYROIDISM 04/12/2013 LATRICE FIELD ARTILLERY BASIC, TERRY S 250.00 DIABETES MELLITUS TYPE 2 04/12/2013 LATRICE FIELD ARTILLERY BASIC, TERRY S 244.9 HYPOTHYROIDISM 04/12/2013 LATRICE FIELD ARTILLERY BASIC, TERRY S 250.00 DIABETES MELLITUS TYPE 2 04/12/2013 LTARICE FIELD ARTILLERY BASIC, TERRY S 244.9 HYPOTHYROIDISM 04/12/2013 LATRICE FIELD ARTILLERY BASIC, TERRY S 250.00 DIABETES MELLITUS TYPE 2 04/17/2013 LATRICE FIELD ARTILLERY BASIC, TERRY S 242.90 HYPERTHYROIDISM 04/17/2013 LATRICE FIELD ARTILLERY BASIC, TERRY S 242.90 HYPERTHYROIDISM 04/17/2013 LATRICE FIELD ARTILLERY BASIC, TERRY S 242.90 HYPERTHYROIDISM 04/17/2013 LATRICE FIELD ARTILLERY BASIC, TERRY S 242.90 HYPERTHYROIDISM 03/05/2014 LATRICE FIELD ARTILLERY BASIC, TERRY S 782.3 EDEMA 03/05/2014 LATRICE FIELD ARTILLERY BASIC, TERRY S 786.2 COUGH 03/05/2014 LATRICE FIELD ARTILLERY BASIC, TERRY S 782.3 EDEMA 03/05/2014 TERRY POLLARD APRN S 786.2 COUGH 03/27/2014 TERRY POLLARD APRN S 459.81 VENOUS (PERIPHERAL) INSUFFICIENCY UNSPECIFIED 04/30/2014 TERRY POLLARD TAX AGENT Ot 729.81 06/04/2014 TERRY POLLARD TAX AGENT Ot 729.81 12/28/2014 TERRY POLLARD TAX AGENT Ot 729.81 05/18/2015 JUNI MAKI, SHARMIN T Ot E11.649 TYPE 2 DIABETES MELLITUS WITH HYPOGLYCEM 05/18/2015 JUNI MAKI, SHARMIN T Ot E87.6 HYPOKALEMIA 05/18/2015 JUNI MAKI, SHARMIN T Ot I10 ESSENTIAL (PRIMARY) HYPERTENSION 05/18/2015 JUNI MAKI, SHARMIN T Ot N17.9 ACUTE KIDNEY FAILURE, UNSPECIFIED 05/18/2015 JUNI MAKI, SHARMIN T Ot N39.0 URINARY TRACT INFECTION, SITE NOT SPECIF 05/18/2015 TERRY POLLARD TAX AGENT Ot 729.81 05/31/2015 JUNI MAKI, SHARMIN T Ot E11.649 05/31/2015 JUNI MAKI, SHARMIN T Ot E87.6 05/31/2015 JUNI MAKI, SHARMIN T Ot I10 05/31/2015 JUNI MAKI, SHARMIN T Ot N17.9 05/31/2015 JUNI MAKI, SHARMIN T Ot N39.0 05/28/2016 VIKY MELÉNDEZ WELFARE CENTRE MANAGER-C Ot D64.9 ANEMIA, UNSPECIFIED 05/28/2016 VIKY MELÉNDEZ WELFARE CENTRE MANAGER-C Ot E83.39 OTHER DISORDERS OF PHOSPHORUS METABOLISM 05/28/2016 VIKY MELÉNDEZ WELFARE CENTRE MANAGER-C Ot E87.5 HYPERKALEMIA 05/28/2016 VIKY MELÉNDEZ WELFARE CENTRE MANAGER-C Ot E88.09 OTH DISORDERS OF PLASMA-PROTEIN METABOLI 05/28/2016 VIKY MELÉNDEZ WELFARE CENTRE MANAGER-C Ot I12.9 HYPERTENSIVE CHRONIC KIDNEY DISEASE W ST 05/28/2016 VIKY MELÉNDEZ WELFARE CENTRE MANAGER-C Ot N18.4 CHRONIC KIDNEY DISEASE, STAGE 4 (SEVERE) 05/28/2016 NEW, VIKY G. WELFARE CENTRE MANAGER-C Ot N32.9 BLADDER DISORDER, UNSPECIFIED 05/28/2016 NEW, VIKY G. WELFARE CENTRE MANAGER-C Ot D64.9 ANEMIA, UNSPECIFIED 05/28/2016 NEW, VIKY G. WELFARE CENTRE MANAGER-C Ot E83.39 OTHER DISORDERS OF PHOSPHORUS METABOLISM 05/28/2016 NEW, VIKY G. WELFARE CENTRE MANAGER-C Ot E87.5 HYPERKALEMIA 05/28/2016 NEW, VIKY G. WELFARE CENTRE MANAGER-C Ot E88.09 OTH DISORDERS OF PLASMA-PROTEIN METABOLI 05/28/2016 NEW, VIKY G. WELFARE CENTRE MANAGER-C Ot I12.9 HYPERTENSIVE CHRONIC KIDNEY DISEASE W ST 05/28/2016 NEW, VIKY G. WELFARE CENTRE MANAGER-C Ot N18.4 CHRONIC KIDNEY DISEASE, STAGE 4 (SEVERE) 05/28/2016 NEW, VIKY G. WELFARE CENTRE MANAGER-C Ot N32.9 BLADDER DISORDER, UNSPECIFIED 06/02/2016 NEW, VIKY G. WELFARE CENTRE MANAGER-C Ot D64.9 ANEMIA, UNSPECIFIED 06/02/2016 NEW, VIKY G. WELFARE CENTRE MANAGER-C Ot E83.39 OTHER DISORDERS OF PHOSPHORUS METABOLISM 06/02/2016 NEW, VIKY G. WELFARE CENTRE MANAGER-C Ot E87.5 HYPERKALEMIA 06/02/2016 NEW, VIKY G. WELFARE CENTRE MANAGER-C Ot E88.09 OTH DISORDERS OF PLASMA-PROTEIN METABOLI 06/02/2016 NEW, VIKY G. WELFARE CENTRE MANAGER-C Ot I12.9 HYPERTENSIVE CHRONIC KIDNEY DISEASE W ST 06/02/2016 NEW, VIKY G. WELFARE CENTRE MANAGER-C Ot N18.4 CHRONIC KIDNEY DISEASE, STAGE 4 (SEVERE) 06/02/2016 NEW, VIKY G. WELFARE CENTRE MANAGER-C Ot N32.9 BLADDER DISORDER, UNSPECIFIED 06/08/2016 NEW, VIKY G. WELFARE CENTRE MANAGER-C Ot D64.9 ANEMIA, UNSPECIFIED 06/08/2016 NEW, VIKY G. WELFARE CENTRE MANAGER-C Ot E83.39 OTHER DISORDERS OF PHOSPHORUS METABOLISM 06/08/2016 NEW, VIKY G. WELFARE CENTRE MANAGER-C Ot E87.5 HYPERKALEMIA 06/08/2016 NEW, VIKY G. WELFARE CENTRE MANAGER-C Ot E88.09 OTH DISORDERS OF PLASMA-PROTEIN METABOLI 06/08/2016 NEW, VIKY G. WELFARE CENTRE MANAGER-C Ot I12.9 HYPERTENSIVE CHRONIC KIDNEY DISEASE W ST 06/08/2016 VIKY MELÉNDEZ RyanMarcello WELFARE CENTRE MANAGER-C Ot N18.4 CHRONIC KIDNEY DISEASE, STAGE 4 (SEVERE) 06/08/2016 NEWVIKYMarcello WELFARE CENTRE MANAGER-C Ot N32.9 BLADDER DISORDER, UNSPECIFIED 06/28/2016 WIN DO, VIKY K Ot E11.40 TYPE 2 DIABETES MELLITUS WITH DIABETIC N 06/28/2016 WIN DO, VIKY K Ot I12.9 HYPERTENSIVE CHRONIC KIDNEY DISEASE W ST 06/28/2016 WIN DO, VIKY K Ot I87.2 VENOUS INSUFFICIENCY (CHRONIC) (PERIPHER 06/28/2016 WIN DO, VIKY K Ot N18.4 CHRONIC KIDNEY DISEASE, STAGE 4 (SEVERE) 06/28/2016 WIN DO, VIKY K Ot R22.43 LOCALIZED SWELLING, MASS AND LUMP, LOWER 06/28/2016 WIN DO, VIKY K Ot Z79.4 FDC (CURRENT) USE OF INSULIN 06/28/2016 WIN DO, VIKY K Ot Z79.84 CAREER DEVELOPMENT ASSOCIATE (CURRENT) USE OF ORAL HYPOGLYC 06/28/2016 WIN DO, VIKY K Ot Z79.899 OTHER FDC (CURRENT) DRUG THERAPY 06/30/2016 WIN DO, VIKY K Ot E11.40 TYPE 2 DIABETES MELLITUS WITH DIABETIC N 06/30/2016 WIN DO, VIKY K Ot I12.9 HYPERTENSIVE CHRONIC KIDNEY DISEASE W ST 06/30/2016 WIN DO, VIKY K Ot I87.2 VENOUS INSUFFICIENCY (CHRONIC) (PERIPHER 06/30/2016 WIN DO, VIKY K Ot N18.4 CHRONIC KIDNEY DISEASE, STAGE 4 (SEVERE) 06/30/2016 WIN DO, VIKY K Ot R22.43 LOCALIZED SWELLING, MASS AND LUMP, LOWER 06/30/2016 WIN DO, VIKY K Ot Z79.4 FDC (CURRENT) USE OF INSULIN 06/30/2016 WIN DO, VIKY K Ot Z79.84 FDC (CURRENT) USE OF ORAL HYPOGLYC 06/30/2016 WIN DO, VIKY K Ot Z79.899 OTHER CAREER DEVELOPMENT ASSOCIATE (CURRENT) DRUG THERAPY 08/14/2016 WIN DO, VIKY K Ot E11.40 TYPE 2 DIABETES MELLITUS WITH DIABETIC N 08/14/2016 WIN DO, VIKY K Ot I12.9 HYPERTENSIVE CHRONIC KIDNEY DISEASE W ST 08/14/2016 WIN DO VIKY K Ot I87.2 VENOUS INSUFFICIENCY (CHRONIC) (PERIPHER 08/14/2016 WIN DO VIKY K Ot N18.4 CHRONIC KIDNEY DISEASE, STAGE 4 (SEVERE) 08/14/2016 WIN DO VIKY K Ot R22.43 LOCALIZED SWELLING, MASS AND LUMP, LOWER 08/14/2016 WIN DO VIKY K Ot Z79.4 CAREER DEVELOPMENT ASSOCIATE (CURRENT) USE OF INSULIN 08/14/2016 WIN DO VIKY K Ot Z79.84 CAREER DEVELOPMENT ASSOCIATE (CURRENT) USE OF ORAL HYPOGLYC 08/14/2016 WIN DO VIKY K Ot Z79.899 OTHER FDC (CURRENT) DRUG THERAPY 03/28/2017 VIKY MELÉNDEZ WELFARE CENTRE MANAGER-C Ot D64.9 ANEMIA, UNSPECIFIED 03/28/2017 VIKY MELÉNDEZ WELFARE CENTRE MANAGER-C Ot E83.39 OTHER DISORDERS OF PHOSPHORUS METABOLISM 03/28/2017 VIKY MELÉNDEZ WELFARE CENTRE MANAGER-C Ot E87.5 HYPERKALEMIA 03/28/2017 VIKY MELÉNDEZ WELFARE CENTRE MANAGER-C Ot E88.09 OTH DISORDERS OF PLASMA-PROTEIN METABOLI 03/28/2017 VIKY MELÉNDEZ WELFARE CENTRE MANAGER-C Ot I12.9 HYPERTENSIVE CHRONIC KIDNEY DISEASE W ST 03/28/2017 VIKY MELÉNDEZ RyanMarcello WELFARE CENTRE MANAGER-C Ot N18.4 CHRONIC KIDNEY DISEASE, STAGE 4 (SEVERE) 03/28/2017 NEW VIKY RyanMarcello WELFARE CENTRE MANAGER-C Ot N32.9 BLADDER DISORDER, UNSPECIFIED Procedures Code Description [place] [address] A1C (IN-HOUSE) 02/28/2013 37227 MICRO ALBUMIN-IN HOUSE 02/28/2013 06582 MICROALBUMIN 02/28/2013 41407 ROUTINE VENIPUNCTURE 04/06/2013 IRGROUP IRON GROUP (Iron,TIBC, Ferritin) 04/06/2013 [id number] GFR CALC (RESULT ONLY) 04/06/2013 43550 CMP 04/06/2013 00981 LIPID PANEL 04/06/2013 37905 CBC 04/06/2013 39059 TSH 04/06/2013 55993 C-PEPTIDE 04/07/2013 96849 IRON SERUM 04/11/2013 01622 IRON BNDNG CAP 04/11/2013 99740 FERRITIN 04/11/2013 49546 ROUTINE VENIPUNCTURE 03/05/2014 52552 MICRO ALBUMIN-IN HOUSE 03/05/2014 01309 A1C (IN-HOUSE) 03/05/2014 20385 CBC 03/06/2014 81894 URIC ACID 03/06/2014 75347 MICROALBUMIN 03/06/2014 Results Test Result Range Complete blood count (CBC) with automated white blood cell (WBC) differential - 06/28/16 08:30 Blood leukocytes automated count (number/volume) 9.7 10*3/uL 4.3-11.0 Blood erythrocytes automated count (number/volume) 3.64 10*6/uL 4.35-5.85 Venous blood hemoglobin measurement (mass/volume) 8.9 g/dL 13.3-17.7 Blood hematocrit (volume fraction) 26 % 40-54 Automated erythrocyte mean corpuscular volume 73 [foz_us] 80-99 Automated erythrocyte mean corpuscular hemoglobin (mass per erythrocyte) 25 pg 25-34 Automated erythrocyte mean corpuscular hemoglobin concentration measurement ( mass/volume) 34 g/dL 32-36 Automated erythrocyte distribution width ratio 16.2 % 10.0-14.5 Automated blood platelet count (count/volume) 269 10*3/uL 130-400 Automated blood platelet mean volume measurement 9.5 [foz_us] 7.4-10.4 Automated blood neutrophils/100 leukocytes 67 % 42-75 Automated blood lymphocytes/100 leukocytes 20 % 12-44 Blood monocytes/100 leukocytes 11 % 0-12 Automated blood eosinophils/100 leukocytes 2 % 0-10 Automated blood basophils/100 leukocytes 0 % 0-10 Blood neutrophils automated count (number/volume) 6.5 10*3 1.8-7.8 Blood lymphocytes automated count (number/volume) 2.0 10*3 1.0-4.0 Blood monocytes automated count (number/volume) 1.0 10*3 0.0-1.0 Automated eosinophil count 0.2 10*3/uL 0.0-0.3 Automated blood basophil count (count/volume) 0.0 10*3/uL 0.0-0.1 PT panel in platelet poor plasma by coagulation assay - 06/28/16 08:30 Prothrombin time (PT) in platelet poor plasma by coagulation assay 15.9 s 12.2-14.7 INR in platelet poor plasma or blood by coagulation assay 1.3 0.8-1.4 Activated partial thromboplastin time (aPTT) in platelet poor plasma bycoagulation assay - 06/28/16 08:30 Activated partial thromboplastin time (aPTT) in platelet poor plasma bycoagulation assay 32 s 24-35 Comprehensive metabolic panel - 06/28/16 08:30 Serum or plasma sodium measurement (moles/volume) 139 mmol/L 135-145 Serum or plasma potassium measurement (moles/volume) 5.0 mmol/L 3.6-5.0 Serum or plasma chloride measurement (moles/volume) 110 mmol/L 98-107 Carbon dioxide 17 mmol/L 21-32 Serum or plasma anion gap determination (moles/volume) 12 mmol/L 5-14 Serum or plasma urea nitrogen measurement (mass/volume) 53 mg/dL 7-18 Serum or plasma creatinine measurement (mass/volume) 4.76 mg/dL 0.60-1.30 Serum or plasma urea nitrogen/creatinine mass ratio 11 NRG Serum or plasma creatinine measurement with calculation of estimated glomerular filtration rate 16 NRG Serum or plasma glucose measurement (mass/volume) 194 mg/dL 70-105 Serum or plasma calcium measurement (mass/volume) 6.9 mg/dL 8.5-10.1 Serum or plasma total bilirubin measurement (mass/volume) 0.7 mg/dL 0.1-1.0 Serum or plasma alkaline phosphatase measurement (enzymatic activity/volume) 161 U/L 40-136 Serum or plasma aspartate aminotransferase measurement (enzymatic activity/ volume) 18 U/L 5-34 Serum or plasma alanine aminotransferase measurement (enzymatic activity/volume ) 22 U/L 0-55 Serum or plasma protein measurement (mass/volume) 6.3 g/dL 6.4-8.2 Serum or plasma albumin measurement (mass/volume) 3.4 g/dL 3.2-4.5 Magnesium - 06/28/16 08:30 Magnesium 1.8 mg/dL 1.8-2.4 Serum or plasma troponin i.cardiac measurement (mass/volume) - 06/28/16 08:30 Serum or plasma troponin i.cardiac measurement (mass/volume) < ng/ mL <0.30 Serum or plasma lithium measurement (moles/volume) - 06/28/16 08:30 BNP level 3956.7 pg/mL <100.0 Encounters ACCT No. Visit Date/Time Discharge Status Pt. Type Provider Facility Loc./Unit Complaint [id number] 03/27/2014 11:38:00 03/27/2014 23:59:59 CLS Outpatient TERRY POLLARD APRN S [id number] 03/05/2014 16:08:00 03/05/2014 23:59:59 CLS Outpatient TERRY POLLARD APRN S [id number] 10/24/2013 14:36:00 10/24/2013 23:59:59 CLS Outpatient MINNIE POLLARD APRNNDA S [id number] 04/17/2013 09:43:00 04/17/2013 23:59:59 CLS Outpatient LATRICE LAUNMINNIETERRY S [id number] 04/06/2013 09:25:00 04/06/2013 23:59:59 CLS Outpatient LATRICE LAUNNUA S [id number] 02/28/2013 09:49:00 02/28/2013 23:59:59 CLS Outpatient LATRICE LAUNTERRY S [id number] 06/28/2016 08:04:00 06/28/2016 10:30:00 DIS Emergency VIKY WALDEN DO [facility] ER LEG SWELLING [id number] 05/27/2016 13:52:00 05/27/2016 23:59:59 CLS Outpatient VIKY MELÉNDEZ [employer]-C [facility] RAD CHRONIC KIDNEY DISEASE, ANEMIA,DIABETES [id number] 05/18/2015 17:16:00 05/18/2015 21:03:00 DIS Emergency SHARMIN ALFREDO MD [facility] ER LOW BLOOD SUGAR [id number] 04/27/2014 11:01:00 04/27/2014 23:59:59 CLS Outpatient TERRY POLLARD T[employer] AGENT [facility] RAD [id number] 03/28/2017 14:06:00 ACT Emergency SHARMIN ALFREDO MD [facility] ER N/V/ELEV BS
[2017-03-28 16:46] LABS: BASOPHILS # (AUTO) 0.1 10^3/uL (0.0-0.1); BASOPHILS % (AUTO) 1 % (0-10); EOSINOPHILS % (AUTO) 0 % (0-10); HEMATOCRIT 32 % (40-54); HEMOGLOBIN 12.5 G/DL (13.3-17.7); LYMPHOCYTES # (AUTO) 1.8 X 10^3 (1.0-4.0); LYMPHOCYTES % (AUTO) 18 % (12-44); MEAN CORPUSCULAR HEMOGLOBIN 28 PG (25-34); MEAN CORPUSCULAR HGB CONC 39 G/DL (32-36); MEAN CORPUSCULAR VOLUME 73 FL (80-99); MEAN PLATELET VOLUME 9.7 FL (7.4-10.4); MONOCYTES % (AUTO) 10 % (0-12); NEUTROPHILS # (AUTO) 7.2 X 10^3 (1.8-7.8); NEUTROPHILS % (AUTO) 72 % (42-75); PLATELET COUNT 245 10^3/uL (130-400); RED BLOOD COUNT 4.45 10^6/uL (4.35-5.85); RED CELL DISTRIBUTION WIDTH 14.9 % (10.0-14.5)
[2017-03-28 17:04] LABS: INR 1.1 (0.8-1.4); PROTHROMBIN TIME PATIENT 13.8 SEC (12.2-14.7)
[2017-03-28 17:05] LABS: BILIRUBIN,URINE NEGATIVE (NEGATIVE); GLUCOSE, URINE (UA) 4+ (NEGATIVE); KETONES,URINE NEGATIVE (NEGATIVE); LEUKOCYTE ESTERASE ,URINE NEGATIVE (NEGATIVE); NITRITE,URINE NEGATIVE (NEGATIVE); PH,URINE 6 (5-9); PROTEIN,URINE 4+ (NEGATIVE); UROBILINOGEN,URINE NORMAL (NORMAL)
[2017-03-28 17:09] LABS: AMORPHOUS SEDIMENT,UR RARE AMOR URATES /LPF; BACTERIA,URINE TRACE /HPF; CLARITY,URINE CLEAR; COLOR,URINE YELLOW; SQUAMOUS EPITHELIAL CELL,UR RARE /HPF
[2017-03-28 17:13] LABS: ALBUMIN 3.9 GM/DL (3.2-4.5); BILIRUBIN,TOTAL 0.5 MG/DL (0.1-1.0); CREATININE SERUM 6.9 MG/DL (0.60-1.30); POTASSIUM 3.1 MMOL/L (3.6-5.0); TOTAL PROTEIN 7.7 GM/DL (6.4-8.2)
--- NOTE | 2017-03-28 18:07 | Diagnostic Imaging Report ---
INDICATION: Right arm numbness and right facial droop and headache. EXAMINATION: Noncontrast brain CT was performed. COMPARISON: There is no prior study For comparison. FINDINGS: There are no extra-axial fluid collections. No intracranial hemorrhage. No subdural or epidural collections. 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 There is no acute appearing intracranial finding. Calvarial windows appear unremarkable. 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 Correlate with elective MRI if clinically warranted. There is no hemorrhage, mass effect or acute intracranial process. Dictated by: Dictated on workstation # [id number]
[2017-03-28] MEDS ORDERED: inSUlin (REGULAR) HUMAN 1 UNIT/0.01 ML (CHARGE PER UNIT) IV STA (18:16)
--- NOTE | 2017-03-28 18:24 | ED General ---
General Chief Complaint: Abdominal/GI Problems Stated Complaint: N/V/ELEV BS Nursing Triage Note: PT HERE WITH C/O N/V/D AND ABDOMINAL PAIN FOR 3 DAYS. Nursing Sepsis Screen: No Definite Risk Source of Information: Patient, Family Exam Limitations: No Limitations History of Present Illness Time Seen by Provider: 17:55 Initial Comments Here with report of nausea, vomiting, weakness, right facial droop, overall not feeling well since last night. Apparently the nausea and vomiting is been going on for 3 days. He is a dialysis patient and did receive dialysis yesterday. Denies fevers. Right facial droop and difficulty swallowing noted last night and persisted through today. This was not immediately noticed or disclosed with the patient or family until my arrival. He was apparently seen at primary care provider's office today and sent over here for further evaluation do to the nausea and vomiting and high blood sugars. Apparently he has not taken his blood pressure medicines for 3 days because he has been vomiting. Timing/Duration: 2-3 Days Severity: Moderate Associated Systoms: No Chest Pain, No Cough, No Fever/Chills, No Headaches, Nausea/Vomiting, No Shortness of Air, Weakness Allergies and Home Medications Allergies Coded Allergies: No Known Drug Allergies (Unverified , 05/18/15) Home Medications Amlodipine Besylate 10 Mg Tablet, 10 MG PO DAILY, #1 Prescribed by: DEONTE PITTS on 05/18/152010 Insulin Glargine,Hum.rec.anlog 100 Unit/1 Ml Vial, 10 UNIT SQ HS, (Reported) Metformin HCl 500 Mg Tablet, 500 MG PO BID, (Reported) Nitrofurantoin Monohyd/M-Cryst 100 Mg Capsule, 1 TAB PO BID, #10 Prescribed by: DEONTE PITTS on 05/18/152010 [bp med x 2] , (Reported) [iron] , (Reported) [vitamin c] , (Reported) Constitutional: see HPI, No chills, No fever, weakness EENTM: see HPI Respiratory: no symptoms reported, No cough, No short of breath Cardiovascular: No chest pain, No palpitations Gastrointestinal: No abdominal pain, nausea, vomiting Genitourinary: no symptoms reported Musculoskeletal: see HPI, muscle weakness Skin: no symptoms reported Psychiatric/Neurological: See HPI, Denies Numbness, Denies Tingling, Weakness Hematologic/Lymphatic: No Symptoms Reported Immunological/Allergic: no symptoms reported All Other Systems Reviewed Negative Unless Noted: Yes Past Azyqrkk-Ugmliq-Bwurgm Hx Patient Social History Alcohol Use: Denies Use Recreational Drug Use: No Smoking Status: Never a Smoker 2nd Hand Smoke Exposure: No Recent Foreign Travel: No Contact w/Someone Who Travel: No Recent Infectious Disease Expo: No Recent Hopitalizations: No Surgeries History of Surgeries: Yes (Dialysis catheter to the right chest wall) Respiratory History of Respiratory Disorde: No Cardiovascular History of Cardiac Disorders: Yes (CHRONIC VENOUS INSUFFICIENCY) Cardiac Disorders: Hypertension, Peripheral Vascular Neurological History of Neurological Disord: Yes Neurological Disorders: Neuropathy Genitourinary History of Genitourinary Disor: Yes Genitourinary Disorders: Renal Failure, Dialysis Gastrointestinal History of Gastrointestinal Di: No Musculoskeletal History of Musculoskeletal Dis: Yes (LEFT CHARCOT FOOT) Endocrine History of Endocrine Disorders: Yes Endocrine Disorders: Diabetes, Insulin dep Cancer History of Cancer: No Psychosocial History of Psychiatric Problem: No Blood Transfusions History of Blood Disorders: Yes (iron deficiency anemia) Reviewed Nursing Assessment Reviewed/Agree w Nursing PMH: Yes Family Medical History Significant Family History: Hypertension Physical Exam Vital Signs Vital Sign - Last 12Hours 03/28/17 14:52 Temp 98.8 Pulse 96 Resp 18 B/P (MAP) 204/112 (142) Pulse Ox 96 O2 Delivery Room Air Capillary Refill : Less Than 3 Seconds General Appearance: WD/WN Eyes: Bilateral Eye Normal Inspection, Bilateral Eye PERRL, Bilateral Eye EOMI HEENT: PERRL/EOMI, Pharynx Normal, Other (Right facial droop noted and difficulty with secretions in his mouth with swallowing) Neck: Non Tender, Supple Respiratory: Lungs Clear, Normal Breath Sounds Cardiovascular: Regular Rate, Rhythm, No Murmur Gastrointestinal: Non Tender, Soft Back: Normal Inspection, No CVA Tenderness, No Vertebral Tenderness Extremity: Normal Range of Motion, Non Tender Neurologic/Psychiatric: Alert, Oriented x3, Facial Droop (Mild right sided and difficulty with handling secretions when swallowing.) Skin: Normal Color, Warm/Dry Progress/Results/Core Measures Suspected Sepsis Recent Fever Within 48 Hours: No Infection Criteria Present: None New/Unexplained Altered Menta: No Sepsis Screen: No Definite Risk Sepsis Diagnosis: SIRS Temperature:98.8 Pulse: 96 Respiratory Rate: 18 Laboratory Tests 03/28/17 16:40: White Blood Count 10.0 Blood Pressure 204 /112 Mean: 142 Laboratory Tests 03/28/17 16:40: Creatinine 6.90H, INR Comment 1.1, Platelet Count 245, Total Bilirubin 0.5 Results/Orders Lab Results Laboratory Tests Test 03/28/17 16:40 03/28/17 16:45 03/28/17 19:58 Range/Units White Blood Count 10.0 4.3-11.0 10^3/uL Red Blood Count 4.45 4.35-5.85 10^6/uL Hemoglobin 12.5 L 13.3-17.7 G/DL Hematocrit 32 L 40-54 % Mean Corpuscular Volume 73 L 80-99 FL Mean Corpuscular Hemoglobin 28 25-34 PG Mean Corpuscular Hemoglobin Concent 39 H 32-36 G/DL Red Cell Distribution Width 14.9 H 10.0-14.5 % Platelet Count 245 130-400 10^3/uL Mean Platelet Volume 9.7 7.4-10.4 FL Neutrophils (%) (Auto) 72 42-75 % Lymphocytes (%) (Auto) 18 12-44 % Monocytes (%) (Auto) 10 0-12 % Eosinophils (%) (Auto) 0 0-10 % Basophils (%) (Auto) 1 0-10 % Neutrophils # (Auto) 7.2 1.8-7.8 X 10^3 Lymphocytes # (Auto) 1.8 1.0-4.0 X 10^3 Monocytes # (Auto) 1.0 0.0-1.0 X 10^3 Eosinophils # (Auto) 0.0 0.0-0.3 10^3/uL Basophils # (Auto) 0.1 0.0-0.1 10^3/uL Prothrombin Time 13.8 12.2-14.7 SEC INR Comment 1.1 0.8-1.4 Activated Partial Thromboplast Time 26 24-35 SEC Sodium Level 124 *L 135-145 MMOL/L Potassium Level 3.1 L 3.6-5.0 MMOL/L Chloride Level 82 L 98-107 MMOL/L Carbon Dioxide Level 25 21-32 MMOL/L Anion Gap 17 H 5-14 MMOL/L Blood Urea Nitrogen 30 H 7-18 MG/DL Creatinine 6.90 H 0.60-1.30 MG/DL Estimat Glomerular Filtration Rate 10 BUN/Creatinine Ratio 4 Glucose Level 691 *H 70-105 MG/DL Calcium Level 8.0 L 8.5-10.1 MG/DL Total Bilirubin 0.5 0.1-1.0 MG/DL Aspartate Amino Transf (AST/SGOT) 22 5-34 U/L Alanine Aminotransferase (ALT/SGPT) 11 0-55 U/L Alkaline Phosphatase 202 H 40-136 U/L Total Protein 7.7 6.4-8.2 GM/DL Albumin 3.9 3.2-4.5 GM/DL Lipase 21 8-78 U/L Urine Color YELLOW Urine Clarity CLEAR Urine pH 6 5-9 Urine Specific [place] 1.010 L 1.016-1.022 Urine Protein 4+ NEGATIVE Urine Glucose (UA) 4+ H NEGATIVE Urine Ketones NEGATIVE NEGATIVE Urine Nitrite NEGATIVE NEGATIVE Urine Bilirubin NEGATIVE NEGATIVE Urine Urobilinogen NORMAL NORMAL MG/DL Urine Leukocyte Esterase NEGATIVE NEGATIVE Urine RBC (Auto) 4+ H NEGATIVE Urine RBC 5-10 H /HPF Urine WBC NONE /HPF Urine Squamous Epithelial Cells RARE /HPF Urine Crystals NONE /LPF Urine Amorphous Sediment RARE CAMI URATES H /LPF Urine Bacteria TRACE /HPF Urine Casts NONE /LPF Urine Mucus NEGATIVE /LPF Urine Culture Indicated NO Glucometer 384 H 70-110 MG/DL Micro Results Microbiology 03/28/17 Influenza Types A,B Antigen (VINICIO) - Final, Complete My Orders Orders - MAOSN MCCANN MD Chest 1 View, Ap/Pa Only (03/28/17 18:14) Vital Signs - Stroke Q15M (03/28/17 18:16) Monitor-Rhythm Ecg Trace Only (03/28/17 18:16) Dysphagia Screening Tool (03/28/17 18:16) Insulin (Regular) Human (Humulin R (Per (03/28/17 18:16) Hydralazine Injection (Apresoline Inject (03/28/17 18:30) Ekg Tracing (03/28/17 18:28) Metoprolol Tartrate Injection (Lopressor (03/28/17 18:30) Ns Iv 500 Ml (Sodium Chloride 0.9%) (03/28/17 19:18) Ns Iv 500 Ml (Sodium Chloride 0.9%) (03/28/17 19:30) Accucheck Stat ONCE (03/28/17 20:03) Ondansetron Injection (Zofran Injectio (03/28/17 20:45) Medications Given in ED Current Medications Medications Dose Ordered Sig/Aaron Route Start Time Stop Time Status Last Admin Dose Admin Hydralazine HCl 20 mg ONCE ONCE IV 03/28/17 18:30 03/28/17 18:31 DC 03/28/17 18:38 20 MG Metoprolol Tartrate 5 mg ONCE ONCE IV 03/28/17 18:30 03/28/17 18:32 DC 03/28/17 18:40 5 MG Vital Signs/I&O Vital Sign - Last 12Hours 03/28/17 03/28/17 14:52 18:31 Temp 98.8 Pulse 96 96 Resp 18 18 B/P (MAP) 204/112 (142) 204/112 Pulse Ox 96 96 O2 Delivery Room Air Capillary Refill : Less Than 3 Seconds Blood Pressure Mean: 142 Progress Note : Progress Note Seen and evaluated. IV, labs, chest x-ray, CT head, stroke screen and order set ordered. Patient does have the facial droop but otherwise essentially negative on stroke scale. Noted. Hydralazine 20 mg IV for elevated blood pressure and insulin 10 units IV for elevated blood sugar. We will continue to monitor. 0: Blood pressure declined after medicines in 500 mL normal saline bolus was given. Patient responded well. Blood pressure had gone down to the 90s systolic but now has 100s to 110s systolic. 1999: I did discuss the case with Dr. Nash at [facility] in [facility]. He accepts patient for admission. 2029: Room number obtained and EMS notified. 2049: Patient with return of nausea and vomiting. Zofran 4 mg IV ordered. I did discuss all findings and concerns with the patient and family who agree with plan and transfer. Transfer via [facility]. Stable condition. Patient requires transfer due to the needs of further evaluation related to the facial droop and this needs to be in the setting of the hospital capable of managing his end-stage renal failure and dialysis. Closest facility and typical facility for him is [facility] in [facility]. ECG Initial ECG Impression Date: Mar 28, 2017 Initial ECG Impression Time: 18:34 Initial ECG Rate: 84 Initial ECG Rhythm: Normal Sinus Initial ECG Comparisson: Unchanged Comment Sinus rhythm with Thomas Blanco rationality. Normal axis. No evidence of ST elevation ND. Overall similar to previous of 28 June 2016. Interpreted by me. EKG : EKG Time: 19:19 Rate: 69 Rhythm: Normal Sinus Comment Sinus rhythm with LVH. No evidence of ST elevation ND. Similar to previous done earlier today although rate improved. Mildly prolonged QT interval after IV beta quyen. Interpreted by me. Diagnostic Imaging Diagonstic Imaging: CT Plain Films/CT/US/NM/MRI: head Comments VIA [facility]. [place], [place] NAME: ESVIN PATHAK [facility] REC#: [id number] PT STATUS: REG ER : 1965 PHYSICIAN: WILLIAMS STOVER ADMIT DATE: 03/28/17/ER Draft Date of Exam:03/28/17 CT HEAD WO-R/O STROKE INDICATION: Right arm numbness and right facial droop and headache. EXAMINATION: Noncontrast brain CT was performed. COMPARISON: There is no prior study For comparison. FINDINGS: There are no extra-axial fluid collections. No intracranial hemorrhage. No subdural or epidural collections. 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 There is no acute appearing intracranial finding. Calvarial windows appear unremarkable. 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 Correlate with elective MRI if clinically warranted. There is no hemorrhage, mass effect or acute intracranial process. Dictated on workstation # [id number] Dict: 03/28/17 1800 Trans: 03/28/17 1806 [facility] [id number] Interpreted by: YADIRA BOWER MD Electronically signed by: Diagonstic Imaging: Xray Plain Films/CT/US/NM/MRI: chest Comments NAME: ESVIN PATHAK [facility] REC#: [id number] PT STATUS: REG ER : 1965 PHYSICIAN: MASON MCCANN MD ADMIT DATE: 03/28/17/ER Signed Date of Exam: 03/28/17 CHEST 1 VIEW, AP/PA ONLY INDICATION: Nausea and vomiting and abdominal pain. Frontal chest obtained at 6:17 p.m. and compared to 06/28/16. FINDINGS: Dual-lumen central venous catheter is seen over the right chest with tip overlying the right atrium. Heart is normal in size. Lungs are clear. There is no pneumothorax or pleural fluid. Upright view shows no free air. IMPRESSION: Dual-lumen central catheter in place. No focal infiltrate or pneumothorax or pleural fluid. 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 Nash accepting. Method of Transfer: EMS Departure-Patient Inst. Referrals: [facility] (PCP/Family) Primary Care Physician MASON MCCANN MD Mar 28, 2017 18:24
[2017-03-28] MEDS ORDERED: hydrALAZINE (APESOLINE) 20 MG/ML VIAL IV ONE (18:30)
[2017-03-28] MEDS ORDERED: meTOprolol 5 MG/5 ML (LOPRESSOR) VIAL IV ONE (18:30)
[2017-03-28 18:31] VITALS: BP 204/112
--- NOTE | 2017-03-28 18:34 | Diagnostic Imaging Report ---
INDICATION: Nausea and vomiting and abdominal pain. Frontal chest obtained at 6:17 p.m. and compared to 06/28/16. FINDINGS: Dual-lumen central venous catheter is seen over the right chest with tip overlying the right atrium. Heart is normal in size. Lungs are clear. There is no pneumothorax or pleural fluid. Upright view shows no free air. IMPRESSION: Dual-lumen central catheter in place. No focal infiltrate or pneumothorax or pleural fluid. Dictated by: Dictated on workstation # [id number]
[2017-03-28] MEDS ORDERED: NS IV 500 ML 500 ML ONE (19:18)
[2017-03-28] MEDS ORDERED: NS IV 500 ML 500 ML IV SCH (19:30)
[2017-03-28] MEDS ORDERED: ONDANSETRON 4 MG/2 ML (SDV) Z0FRAN IVP ONE (20:45)
[2017-03-28 21:08] VITALS: BP 136/76
== END 2017-03-28 21:08 | disposition short-term general hospital (02) ==
LOC: EDUNIT# 14:04 → ER 14:06
DX: I69.392 Facial weakness following cerebral infarction (principal); R11.2 Nausea with vomiting, unspecified; R19.7 Diarrhea, unspecified; E11.65 Type 2 diabetes mellitus with hyperglycemia; E11.22 Type 2 diabetes mellitus with diabetic chronic kidney disease; I12.0 Hypertensive chronic kidney disease with stage 5 chronic kidney disease or end stage renal disease; N18.6 End stage renal disease; Z99.2 Dependence on renal dialysis; Z79.4 Long term (current) use of insulin
CPT/HCPCS: 36415; 70450; 71045; 80053; 81000; 82962; 83690; 85025; 85610; 85730; 87804; 93005; 93041

== ENCOUNTER 2017-03-30 19:40 | Emergency (ER) | payer SELFPAY ==
[~2017-03-30] VITALS: Ht 167.6 cm; Wt 77.1 kg
[~2017-03-30 19:40] MED LIST changes: +LORazepam INJ 2 MG/ML (ATIVAN) VIAL ONE; +MIDAZOLAM 5 MG/5 ML (VERSED) VIAL IV ONE; +ROCURONIUM 50 MG/5 ML (ZEMURON) VIAL IV ONE; +fentaNYL INJECTION 100 MCG/2 ML AMP INJ ONE
[2017-03-30] MEDS ORDERED: LORazepam INJ 2 MG/ML (ATIVAN) VIAL IVP ONE ×2 (19:45→22:30)
[2017-03-30] MEDS ORDERED: inSUlin (REGULAR) HUMAN 1 UNIT/0.01 ML (CHARGE PER UNIT) IV STA (19:45)
[2017-03-30] MEDS ORDERED: meTOprolol 5 MG/5 ML (LOPRESSOR) VIAL IV ONE (19:45)
--- OUTSIDE RECORDS SUMMARY | 2017-03-30 19:47 | XMS REPORT | Continuity of Care Document ---
Author Author [facility] Address Unknown Phone Unavailable Allergies Active Description Code Type Severity Reaction Onset Reported/Identified Relationship to Patient Clinical Status Yes No Known Drug Allergies [id number] Drug Allergy Unknown N/A 05/18/2015 Medications There is no data. Problems Date Dx Coded Attending Type Code Diagnosis Diagnosed By 02/28/2013 MINNIE POLLARD APRNNDA S 250.02 DIABETES II UNCONTROLLED (UNCOMPLICATED) 02/28/2013 LATRICE TELESALES TEAM LEADER, TERRY S 401.1 HYPERTENSION, BENIGN ESSENTIAL 02/28/2013 LATRICE TELESALES TEAM LEADER, TERRY S V70.0 EXAM - ROUTINE H&P 02/28/2013 LATRICE MILLER TERRY S 250.02 DIABETES II UNCONTROLLED (UNCOMPLICATED) 02/28/2013 LATRICE MILLER TERRY S 401.1 HYPERTENSION, BENIGN ESSENTIAL 02/28/2013 LATRICE TELESALES TEAM LEADER, TERRY S V70.0 EXAM - ROUTINE H&P 02/28/2013 LATRICE TELESALES TEAM LEADER, TERRY S 250.02 DIABETES II UNCONTROLLED (UNCOMPLICATED) 02/28/2013 LATRICE TELESALES TEAM LEADER, TERRY S 401.1 HYPERTENSION, BENIGN ESSENTIAL 02/28/2013 LATRICE TELESALES TEAM LEADER, TERRY S V70.0 EXAM - ROUTINE H&P 02/28/2013 LATRICE TELESALES TEAM LEADER, TERRY S 250.02 DIABETES II UNCONTROLLED (UNCOMPLICATED) 02/28/2013 LATRICE TELESALES TEAM LEADER, TERRY S 401.1 HYPERTENSION, BENIGN ESSENTIAL 02/28/2013 LATRICE TELESALES TEAM LEADER, TERRY S V70.0 EXAM - ROUTINE H&P 02/28/2013 LATRICE TELESALES TEAM LEADER, TERRY S 250.02 DIABETES II UNCONTROLLED (UNCOMPLICATED) 02/28/2013 LATRICE TELESALES TEAM LEADER, TERRY S 401.1 HYPERTENSION, BENIGN ESSENTIAL 02/28/2013 LATRICE TELESALES TEAM LEADER, TERRY S V70.0 EXAM - ROUTINE H&P 02/28/2013 LATRICE TELESALES TEAM LEADER, TERRY S 250.02 DIABETES II UNCONTROLLED (UNCOMPLICATED) 02/28/2013 LATRICE TELESALES TEAM LEADER, TERRY S 401.1 HYPERTENSION, BENIGN ESSENTIAL 02/28/2013 LATRICE TELESALES TEAM LEADER, TERRY S V70.0 EXAM - ROUTINE H&P 04/06/2013 LATRICE TELESALES TEAM LEADER, TERRY S 285.9 ANEMIA 04/06/2013 LATRICE TELESALES TEAM LEADER, TERRY S 285.9 ANEMIA 04/06/2013 LATRICE TELESALES TEAM LEADER, TERRY S 285.9 ANEMIA 04/06/2013 LATRICE TELESALES TEAM LEADER, TERRY S 285.9 ANEMIA 04/06/2013 LATRICE TELESALES TEAM LEADER, TERRY S 285.9 ANEMIA 04/12/2013 LATRICE TELESALES TEAM LEADER, TERRY S 244.9 HYPOTHYROIDISM 04/12/2013 LATRICE TELESALES TEAM LEADER, TERRY S 250.00 DIABETES MELLITUS TYPE 2 04/12/2013 LATRICE TELESALES TEAM LEADER, TERRY S 244.9 HYPOTHYROIDISM 04/12/2013 LATRICE TELESALES TEAM LEADER, TRERY S 250.00 DIABETES MELLITUS TYPE 2 04/12/2013 LATRICE TELESALES TEAM LEADER, TERRY S 244.9 HYPOTHYROIDISM 04/12/2013 LATRICE TELESALES TEAM LEADER, TERRY S 250.00 DIABETES MELLITUS TYPE 2 04/12/2013 LATRICE TELESALES TEAM LEADER, TERRY S 244.9 HYPOTHYROIDISM 04/12/2013 LATRICE TELESALES TEAM LEADER, TERRY S 250.00 DIABETES MELLITUS TYPE 2 04/12/2013 LATRICE TELESALES TEAM LEADER, TERRY S 244.9 HYPOTHYROIDISM 04/12/2013 LATRICE TELESALES TEAM LEADER, TERRY S 250.00 DIABETES MELLITUS TYPE 2 04/17/2013 LATRICE TELESALES TEAM LEADER, TERRY S 242.90 HYPERTHYROIDISM 04/17/2013 LATRICE TELESALES TEAM LEADER, TERRY S 242.90 HYPERTHYROIDISM 04/17/2013 LATRICE TELESALES TEAM LEADER, TERRY S 242.90 HYPERTHYROIDISM 04/17/2013 LATRICE TELESALES TEAM LEADER, TERRY S 242.90 HYPERTHYROIDISM 03/05/2014 LATRICE TELESALES TEAM LEADER, TERRY S 782.3 EDEMA 03/05/2014 LATRICE TELESALES TEAM LEADER, TERRY S 786.2 COUGH 03/05/2014 LATRICE TELESALES TEAM LEADER, TERRY S 782.3 EDEMA 03/05/2014 TERRY POLLARD APRN S 786.2 COUGH 03/27/2014 TERRY POLLARD APRN S 459.81 VENOUS (PERIPHERAL) INSUFFICIENCY UNSPECIFIED 04/30/2014 TERRY POLLARD MANAGER COSMETICS Ot 729.81 06/04/2014 TERRY POLLARD MANAGER COSMETICS Ot 729.81 12/28/2014 TERRY POLLARD MANAGER COSMETICS Ot 729.81 05/18/2015 JUNI MAKI, SHARMIN T Ot E11.649 TYPE 2 DIABETES MELLITUS WITH HYPOGLYCEM 05/18/2015 JUNI MAKI, SHARMIN T Ot E87.6 HYPOKALEMIA 05/18/2015 JUNI MAKI, SHARMIN T Ot I10 ESSENTIAL (PRIMARY) HYPERTENSION 05/18/2015 JUNI MAKI, SHARMIN T Ot N17.9 ACUTE KIDNEY FAILURE, UNSPECIFIED 05/18/2015 JUNI MAKI, SHARMIN T Ot N39.0 URINARY TRACT INFECTION, SITE NOT SPECIF 05/18/2015 TERRY POLLARD MANAGER COSMETICS Ot 729.81 05/31/2015 JUNI MAKI, SHARMIN T Ot E11.649 05/31/2015 JNUI MAKI, SHARMIN T Ot E87.6 05/31/2015 JUNI MAKI, SHARMIN T Ot I10 05/31/2015 JUNI MAKI, SHARMIN T Ot N17.9 05/31/2015 JUNI MAKI, SHARMIN T Ot N39.0 05/28/2016 VIKY MELÉNDEZ CHORUS MASTER-C Ot D64.9 ANEMIA, UNSPECIFIED 05/28/2016 VIKY MELÉNDEZ CHORUS MASTER-C Ot E83.39 OTHER DISORDERS OF PHOSPHORUS METABOLISM 05/28/2016 VIKY MELÉNDEZ CHORUS MASTER-C Ot E87.5 HYPERKALEMIA 05/28/2016 VIKY MELÉNDEZ CHORUS MASTER-C Ot E88.09 OTH DISORDERS OF PLASMA-PROTEIN METABOLI 05/28/2016 VIKY MELÉNDEZ CHORUS MASTER-C Ot I12.9 HYPERTENSIVE CHRONIC KIDNEY DISEASE W ST 05/28/2016 VIKY MELÉNDEZ CHORUS MASTER-C Ot N18.4 CHRONIC KIDNEY DISEASE, STAGE 4 (SEVERE) 05/28/2016 NEW, VIKY G. CHORUS MASTER-C Ot N32.9 BLADDER DISORDER, UNSPECIFIED 05/28/2016 NEW, VIKY G. CHORUS MASTER-C Ot D64.9 ANEMIA, UNSPECIFIED 05/28/2016 NEW, VIKY G. CHORUS MASTER-C Ot E83.39 OTHER DISORDERS OF PHOSPHORUS METABOLISM 05/28/2016 NEW, VIKY G. CHORUS MASTER-C Ot E87.5 HYPERKALEMIA 05/28/2016 NEW, VIKY G. CHORUS MASTER-C Ot E88.09 OTH DISORDERS OF PLASMA-PROTEIN METABOLI 05/28/2016 NEW, VIKY G. CHORUS MASTER-C Ot I12.9 HYPERTENSIVE CHRONIC KIDNEY DISEASE W ST 05/28/2016 NEW, VIKY G. CHORUS MASTER-C Ot N18.4 CHRONIC KIDNEY DISEASE, STAGE 4 (SEVERE) 05/28/2016 NEW, VIKY G. CHORUS MASTER-C Ot N32.9 BLADDER DISORDER, UNSPECIFIED 06/02/2016 NEW, VIKY G. CHORUS MASTER-C Ot D64.9 ANEMIA, UNSPECIFIED 06/02/2016 NEW, VIKY G. CHORUS MASTER-C Ot E83.39 OTHER DISORDERS OF PHOSPHORUS METABOLISM 06/02/2016 NEW, VIKY G. CHORUS MASTER-C Ot E87.5 HYPERKALEMIA 06/02/2016 NEW, VIKY G. CHORUS MASTER-C Ot E88.09 OTH DISORDERS OF PLASMA-PROTEIN METABOLI 06/02/2016 NEW, VIKY G. CHORUS MASTER-C Ot I12.9 HYPERTENSIVE CHRONIC KIDNEY DISEASE W ST 06/02/2016 NEW, VIKY G. CHORUS MASTER-C Ot N18.4 CHRONIC KIDNEY DISEASE, STAGE 4 (SEVERE) 06/02/2016 NEW, VIKY G. CHORUS MASTER-C Ot N32.9 BLADDER DISORDER, UNSPECIFIED 06/08/2016 NEW, VIKY G. CHORUS MASTER-C Ot D64.9 ANEMIA, UNSPECIFIED 06/08/2016 NEW, VIKY G. CHORUS MASTER-C Ot E83.39 OTHER DISORDERS OF PHOSPHORUS METABOLISM 06/08/2016 NEW, VIKY G. CHORUS MASTER-C Ot E87.5 HYPERKALEMIA 06/08/2016 NEW, VIKY G. CHORUS MASTER-C Ot E88.09 OTH DISORDERS OF PLASMA-PROTEIN METABOLI 06/08/2016 NEW, VIKY G. CHORUS MASTER-C Ot I12.9 HYPERTENSIVE CHRONIC KIDNEY DISEASE W ST 06/08/2016 VIKY MELÉNDEZ RyanMarcello CHORUS MASTER-C Ot N18.4 CHRONIC KIDNEY DISEASE, STAGE 4 (SEVERE) 06/08/2016 NEWVIKYMarcello CHORUS MASTER-C Ot N32.9 BLADDER DISORDER, UNSPECIFIED 06/28/2016 WIN [...] 06/28/2016 WIN DO, VIKY K Ot Z79.4 RESIDENTIAL (CURRENT) USE OF INSULIN 06/28/2016 WIN DO, VIKY K Ot Z79.84 MANAGER FILTER (CURRENT) USE OF ORAL HYPOGLYC 06/28/2016 WIN DO, VIKY K Ot Z79.899 OTHER RESIDENTIAL (CURRENT) DRUG THERAPY 06/30/2016 WIN DO, VIKY [...] 06/30/2016 WIN DO, VIKY K Ot Z79.4 RESIDENTIAL (CURRENT) USE OF INSULIN 06/30/2016 WIN DO, VIKY K Ot Z79.84 RESIDENTIAL (CURRENT) USE OF ORAL HYPOGLYC 06/30/2016 WIN DO, VIKY K Ot Z79.899 OTHER MANAGER FILTER (CURRENT) DRUG THERAPY 08/14/2016 WIN DO, VIKY [...] 08/14/2016 WIN DO VIKY K Ot Z79.4 MANAGER FILTER (CURRENT) USE OF INSULIN 08/14/2016 WIN DO VIKY K Ot Z79.84 MANAGER FILTER (CURRENT) USE OF ORAL HYPOGLYC 08/14/2016 WIN DO VIKY K Ot Z79.899 OTHER RESIDENTIAL (CURRENT) DRUG THERAPY 03/28/2017 VIKY MELÉNDEZ CHORUS MASTER-C Ot D64.9 ANEMIA, UNSPECIFIED 03/28/2017 VIKY MELÉNDEZ CHORUS MASTER-C Ot E83.39 OTHER DISORDERS OF PHOSPHORUS METABOLISM 03/28/2017 VIKY MELÉNDEZ CHORUS MASTER-C Ot E87.5 HYPERKALEMIA 03/28/2017 VIKY MELÉNDEZ CHORUS MASTER-C Ot E88.09 OTH DISORDERS OF PLASMA-PROTEIN METABOLI 03/28/2017 VIKY MELÉNDEZ CHORUS MASTER-C Ot I12.9 HYPERTENSIVE CHRONIC KIDNEY DISEASE W ST 03/28/2017 VIKY MELÉNDEZ RyanMarcello CHORUS MASTER-C Ot N18.4 CHRONIC KIDNEY DISEASE, STAGE 4 (SEVERE) 03/28/2017 NEW VIKY RyanMarcello CHORUS MASTER-C Ot N32.9 BLADDER DISORDER, UNSPECIFIED Procedures Code Description [place] [address] A1C (IN-HOUSE) 02/28/2013 98240 MICRO ALBUMIN-IN HOUSE 02/28/2013 40016 MICROALBUMIN 02/28/2013 36805 ROUTINE VENIPUNCTURE 04/06/2013 IRGROUP IRON GROUP (Iron,TIBC, Ferritin) 04/06/2013 6471158 GFR CALC (RESULT ONLY) 04/06/2013 75876 CMP 04/06/2013 50802 LIPID PANEL 04/06/2013 84433 CBC 04/06/2013 91104 TSH 04/06/2013 24740 C-PEPTIDE 04/07/2013 16411 IRON SERUM 04/11/2013 14793 IRON BNDNG CAP 04/11/2013 72053 FERRITIN 04/11/2013 76604 ROUTINE VENIPUNCTURE 03/05/2014 39650 MICRO ALBUMIN-IN HOUSE 03/05/2014 06243 A1C (IN-HOUSE) 03/05/2014 30309 CBC 03/06/2014 55676 URIC ACID 03/06/2014 84471 MICROALBUMIN 03/06/2014 Results Test Result Range Complete [...] 06/28/16 08:30 BNP level 3956.7 pg/mL <100.0 Complete blood count (CBC) with automated white blood cell (WBC) differential - 03/28/17 16:40 Blood leukocytes automated count (number/volume) 10.0 10*3/uL 4.3-11.0 Blood erythrocytes automated count (number/volume) 4.45 10*6/uL 4.35-5.85 Venous blood hemoglobin measurement (mass/volume) 12.5 g/dL 13.3-17.7 Blood hematocrit (volume fraction) 32 % 40-54 Automated erythrocyte mean corpuscular volume 73 [foz_us] 80-99 Automated erythrocyte mean corpuscular hemoglobin (mass per erythrocyte) 28 pg 25-34 Automated erythrocyte mean corpuscular hemoglobin concentration measurement ( mass/volume) 39 g/dL 32-36 Automated erythrocyte distribution width ratio 14.9 % 10.0-14.5 Automated blood platelet count (count/volume) 245 10*3/uL 130-400 Automated blood platelet mean volume measurement 9.7 [foz_us] 7.4-10.4 Automated blood neutrophils/100 leukocytes 72 % 42-75 Automated blood lymphocytes/100 leukocytes 18 % 12-44 Blood monocytes/100 leukocytes 10 % 0-12 Automated blood eosinophils/100 leukocytes 0 % 0-10 Automated blood basophils/100 leukocytes 1 % 0-10 Blood neutrophils automated count (number/volume) 7.2 10*3 1.8-7.8 Blood lymphocytes automated count (number/volume) 1.8 10*3 1.0-4.0 Blood monocytes automated count (number/volume) 1.0 10*3 0.0-1.0 Automated eosinophil count 0.0 10*3/uL 0.0-0.3 Automated blood basophil count (count/volume) 0.1 10*3/uL 0.0-0.1 PT panel in platelet poor plasma by coagulation assay - 03/28/17 16:40 Prothrombin time (PT) in platelet poor plasma by coagulation assay 13.8 s 12.2-14.7 INR in platelet poor plasma or blood by coagulation assay 1.1 0.8-1.4 Activated partial thromboplastin time (aPTT) in platelet poor plasma bycoagulation assay - 03/28/17 16:40 Activated partial thromboplastin time (aPTT) in platelet poor plasma bycoagulation assay 26 s 24-35 Comprehensive metabolic panel - 03/28/17 16:40 Serum or plasma sodium measurement (moles/volume) 124 mmol/L 135-145 Serum or plasma potassium measurement (moles/volume) 3.1 mmol/L 3.6-5.0 Serum or plasma chloride measurement (moles/volume) 82 mmol/L 98-107 Carbon dioxide 25 mmol/L 21-32 Serum or plasma anion gap determination (moles/volume) 17 mmol/L 5-14 Serum or plasma urea nitrogen measurement (mass/volume) 30 mg/dL 7-18 Serum or plasma creatinine measurement (mass/volume) 6.90 mg/dL 0.60-1.30 Serum or plasma urea nitrogen/creatinine mass ratio 4 NRG Serum or plasma creatinine measurement with calculation of estimated glomerular filtration rate 10 NRG Serum or plasma glucose measurement (mass/volume) 691 mg/dL 70-105 Serum or plasma calcium measurement (mass/volume) 8.0 mg/dL 8.5-10.1 Serum or plasma total bilirubin measurement (mass/volume) 0.5 mg/dL 0.1-1.0 Serum or plasma alkaline phosphatase measurement (enzymatic activity/volume) 202 U/L 40-136 Serum or plasma aspartate aminotransferase measurement (enzymatic activity/ volume) 22 U/L 5-34 Serum or plasma alanine aminotransferase measurement (enzymatic activity/volume ) 11 U/L 0-55 Serum or plasma protein measurement (mass/volume) 7.7 g/dL 6.4-8.2 Serum or plasma albumin measurement (mass/volume) 3.9 g/dL 3.2-4.5 Lipase - 03/28/17 16:40 Lipase 21 U/L 8-78 Complete urinalysis with reflex to culture - 03/28/17 16:45 Urine color determination YELLOW NRG Urine clarity determination CLEAR NRG Urine pH measurement by test strip 6 5-9 Specific gravity of urine by test strip 1.010 1.016- 1.022 Urine protein assay by test strip, semi-quantitative 4+ NEGATIVE Urine glucose detection by automated test strip 4+ NEGATIVE Erythrocytes detection in urine sediment by light microscopy 4+ NEGATIVE Urine ketones detection by automated test strip NEGATIVE NEGATIVE Urine nitrite detection by test strip NEGATIVE NEGATIVE Urine total bilirubin detection by test strip NEGATIVE NEGATIVE Urine urobilinogen measurement by automated test strip (mass/volume) NORMAL NORMAL Urine leukocyte esterase detection by dipstick NEGATIVE NEGATIVE Automated urine sediment erythrocyte count by microscopy (number/high power field) [HPF] NRG Automated urine sediment leukocyte count by microscopy (number/high power field ) NONE NRG Bacteria detection in urine sediment by light microscopy TRACE NRG Squamous epithelial cells detection in urine sediment by light microscopy RARE NRG Crystals detection in urine sediment by light microscopy NONE NRG Casts detection in urine sediment by light microscopy NONE NRG Mucus detection in urine sediment by light microscopy NEGATIVE NRG Complete urinalysis with reflex to culture NO NRG Amorphous sediment detection in urine sediment by light microscopy RARE CAMI URATES NRG Influenza virus A and B antigen detection - 03/28/17 17:45 FLU RESULT NEGATIVE FOR INFLUENZA A AND B ANTIGENS BY IA NRG Capillary blood glucose measurement by glucometer (mass/volume) - 03/28/17 19: 58 Capillary blood glucose measurement by glucometer (mass/volume) 384 mg/dL 70-110 Encounters ACCT No. Visit Date/Time Discharge Status Pt. Type Provider Facility Loc./Unit Complaint [id number] 03/27/2014 11:38:00 03/27/2014 23:59:59 CLS Outpatient TERRY POLLARD APRN S [id number] 03/05/2014 16:08:00 03/05/2014 23:59:59 CLS Outpatient NU POLLARD APRNA S [id number] 10/24/2013 14:36:00 10/24/2013 23:59:59 CLS Outpatient NU POLLARD APRNA S [id number] 04/17/2013 09:43:00 04/17/2013 23:59:59 CLS Outpatient MINNIE POLLARD APRNNDA S [id number] 04/06/2013 09:25:00 04/06/2013 23:59:59 CLS Outpatient NU POLLARD APRNA S [id number] 02/28/2013 09:49:00 02/28/2013 23:59:59 CLS Outpatient MINNIE POLLARD APRNNDA S [id number] 03/28/2017 14:06:00 03/28/2017 21:08:00 DIS Emergency MASON MCCANN MD [facility] ER N/V/ELEV BS [id number] 06/28/2016 08:04:00 06/28/2016 10:30:00 DIS Emergency VIKY WALDEN DO [facility] ER LEG SWELLING [id number] 05/27/2016 13:52:00 05/27/2016 23:59:59 CLS Outpatient VIKY MELÉNDEZ [facility] RAD CHRONIC KIDNEY DISEASE, ANEMIA,DIABETES [id number] 05/18/2015 17:16:00 05/18/2015 21:03:00 DIS Emergency JUNI MAKI, SHARMIN Cunha [facility] ER LOW BLOOD SUGAR [id number] 04/27/2014 11:01:00 04/27/2014 23:59:59 CLS Outpatient TERRY POLLARD [facility] RAD
[2017-03-30 19:56] LABS: BASOPHILS % (AUTO) 0 % (0-10); EOSINOPHILS # (AUTO) 0.1 10^3/uL (0.0-0.3); EOSINOPHILS % (AUTO) 1 % (0-10); HEMATOCRIT 32 % (40-54); HEMOGLOBIN 11.9 G/DL (13.3-17.7); LYMPHOCYTES # (AUTO) 1.3 X 10^3 (1.0-4.0); LYMPHOCYTES % (AUTO) 9 % (12-44); MEAN CORPUSCULAR HEMOGLOBIN 28 PG (25-34); MEAN CORPUSCULAR HGB CONC 38 G/DL (32-36); MEAN CORPUSCULAR VOLUME 75 FL (80-99); MONOCYTES # (AUTO) 0.8 X 10^3 (0.0-1.0); MONOCYTES % (AUTO) 6 % (0-12); NEUTROPHILS # (AUTO) 11.4 X 10^3 (1.8-7.8); NEUTROPHILS % (AUTO) 84 % (42-75); PLATELET COUNT 290 10^3/uL (130-400); RED BLOOD COUNT 4.22 10^6/uL (4.35-5.85); WHITE BLOOD COUNT 13.5 10^3/uL (4.3-11.0)
[2017-03-30 20:05] LABS: FIBRIN DEGRADATION PRODUCTS 0.43 UG/ML (0.00-0.49)
[2017-03-30 20:10] LABS: ALANINE AMINOTRANSFERASE 14 U/L (0-55); ALBUMIN 3.9 GM/DL (3.2-4.5); ALKALINE PHOSPHATASE 159 U/L (40-136); BILIRUBIN,TOTAL 0.3 MG/DL (0.1-1.0); BUN/CREATININE RATIO 4; CALCIUM 7.7 MG/DL (8.5-10.1); CARBON DIOXIDE 14 MMOL/L (21-32); CHLORIDE 89 MMOL/L (98-107); CREATINE KINASE 388 U/L (30-200); CREATININE SERUM 7.52 MG/DL (0.60-1.30); GFR ESTIMATED 9; POTASSIUM 3.4 MMOL/L (3.6-5.0); SALICYLATE < 5.0 MG/DL (5.0-20.0); SODIUM 126 MMOL/L (135-145); TOTAL PROTEIN 7.7 GM/DL (6.4-8.2)
[2017-03-30 20:12] LABS: ACETAMINOPHEN < 10 UG/ML (10-30); GLUCOSE 764 MG/DL (70-105)
[2017-03-30] MEDS ORDERED: PROPOFOL DRIP (ICU) 100 ML IV ONE ×2 (20:23→22:38)
[2017-03-30 20:30] LABS: CREATINE KINASE MB 5.8 NG/ML (<6.6); TSH (THYROID ANALYZER) 1.66 UIU/ML (0.35-4.94)
--- NOTE | 2017-03-30 20:33 | Diagnostic Imaging Report ---
INDICATION: Unresponsive patient. Frontal chest obtained at 8:22 p.m. and compared to 03/28/2017. FINDINGS: There is cardiomegaly. Dual-lumen central catheter is seen with tip overlying the inferior portion of the right atrium. There is mild central vascular prominence. There is poor inspiration. The lungs are clear. IMPRESSION: Mild cardiomegaly and central vascular prominence. No focal infiltrate or pneumothorax or pleural fluid. Dual-lumen central catheter seen with tip overlying the inferior portion of the right atrium. Dictated by: Dictated on workstation # [id number]
--- NOTE | 2017-03-30 20:35 | Diagnostic Imaging Report ---
INDICATION: Patient unresponsive. EXAM: Noncontrast brain CT performed. 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 There is no acute hemorrhage or mass effect or midline shift. There is no new intraparenchymal abnormality in the brain. Calvarial windows are unremarkable. 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 No acute hemorrhage or mass effect or acute intracranial process. Stable appearance compared with 03/28/2017. Dictated by: Dictated on workstation # [id number]
[2017-03-30 20:51] LABS: BILIRUBIN,URINE NEGATIVE (NEGATIVE); CLARITY,URINE CLEAR; COLOR,URINE YELLOW; GLUCOSE, URINE (UA) 4+ (NEGATIVE); KETONES,URINE NEGATIVE (NEGATIVE); LEUKOCYTE ESTERASE ,URINE NEGATIVE (NEGATIVE); NITRITE,URINE NEGATIVE (NEGATIVE); PH,URINE 5 (5-9); PROTEIN,URINE 3+ (NEGATIVE); UROBILINOGEN,URINE NORMAL (NORMAL)
[2017-03-30 20:59] LABS: AMPHETAMINE SCREEN, URINE NEGATIVE (NEGATIVE); BARBITURATE SCREEN URINE NEGATIVE (NEGATIVE); BENZODIAZEPINES SCREEN URINE NEGATIVE (NEGATIVE); CANNABINOID SCREEN, URINE NEGATIVE (NEGATIVE); COCAINE SCREEN URINE NEGATIVE (NEGATIVE); METHADONE STAT NEGATIVE (NEGATIVE); METHAMPHETAMINE SCREEN URINE S NEGATIVE (NEGATIVE); OPIATE SCREEN URINE NEGATIVE (NEGATIVE); OXYCODONE STAT NEGATIVE (NEGATIVE); PROPOXYPHENE STAT NEGATIVE (NEGATIVE); TRICYCLIC ANTIDEPRESSANTS SCRE NEGATIVE (NEGATIVE)
[2017-03-30] MEDS ORDERED: NS IV 1000 ML 1,000 ML ONE (21:12)
[2017-03-30] MEDS ORDERED: NS IV 1000 ML 1,000 ML IV ONE (21:12)
--- NOTE | 2017-03-30 21:13 | Anesthesia-Procedure Note ---
Procedure Start/Stop Time Date of Procedure: Mar 30, 2017 Start Time: 20:51 Stop Time: 20:57 Procedures/Interventions RSI: No 100% pre-Ox, [id number]: Yes Intubation Method: orotracheal Videoscope used: Yes Grade View: 1 Medications: Propofol (100) Mask Ventilation: positive Positive End Tide CO2: Yes Breath Sounds after Intubation: bilateral-equal ETT Securred @ (cm): 24 Intubated with ease: Yes Intubation Complications: no complications Post Intubation Xray-done: Yes Progress Called to ED for intubation. Upon arrival patient being BVM assisted on propofol drip at what I was told 50 mcg. 100 mg propofol bolus given. Atraumatic intubation with Hull MAC with X blade. 7.5 oett. Tolerated procedure well. Care turned over to: ED KEYLA SALAZAR CRNA Mar 30, 2017 21:13
[2017-03-30 21:32] VITALS: BP 95/50
--- NOTE | 2017-03-30 21:35 | Diagnostic Imaging Report ---
INDICATION: Intubation EXAM: Frontal chest obtained at 9:21 hours p.m. COMPARISON with same day at 8:22 hours p.m. FINDINGS: ET tube tip overlies the mid trachea. NG tube tip overlies the mid to distal stomach. Dual-lumen central catheter is seen with tip overlying the right atrium. There is no pneumothorax or pleural fluid or focal infiltrate. IMPRESSION: New ET tube and NG tube, as above. No definite focal infiltrate or pneumothorax or other new finding. Dictated by: Dictated on workstation # [id number]
--- NOTE | 2017-03-30 21:50 | ED Neurological Problem ---
General Chief Complaint: Neurological Problems Stated Complaint: SEIZURE Source: family, old records Exam Limitations: clinical condition History of Present Illness Time seen by provider: 19:41 Initial Comments This patient presents to the emergency room via EMS with active seizure that started at home. Patient has been seizing intermittently throughout the day. He was seen at this facility on March 28 for stroke like symptoms and transferred to [facility] in [place]. He had a short stay there and was discharged home. Family reports he had some infrequent seizures that started early in the day and became more frequent with time. Seizure activity was uncontrolled in the called EMS this evening. Patient was actively seizing upon arrival to the ER. Patient's family reports no known recent fever or other signs of acute infectious illness. Patient does have some problems with medication compliance. Allergies and Home Medications Allergies Coded Allergies: No Known Drug Allergies (Unverified , 05/18/15) Home Medications Amlodipine Besylate 10 Mg Tablet, 10 MG PO DAILY, #1 Prescribed by: DEONTE PITTS on 05/18/152010 Insulin Glargine,Hum.rec.anlog 100 Unit/1 Ml Vial, 10 UNIT SQ HS, (Reported) Metformin HCl 500 Mg Tablet, 500 MG PO BID, (Reported) Metolazone 2.5 Mg Tablet, 2.5 MG PO UD, (Reported) Metoprolol Succinate 100 Mg Tab.er.24h, 100 MG PO BID, (Reported) Nitrofurantoin Monohyd/M-Cryst 100 Mg Capsule, 1 TAB PO BID, #10 Prescribed by: DEONTE PITTS on 05/18/152010 [bp med x 2] , (Reported) [iron] , (Reported) [vitamin c] , (Reported) Constitutional: see HPI Eyes: No Symptoms Reported Ears, Nose, Mouth, Throat: no symptoms reported Respiratory: no symptoms reported Cardiovascular: see HPI Gastrointestinal: no symptoms reported Genitourinary: no symptoms reported Musculoskeletal: no symptoms reported Skin: no symptoms reported Psychiatric/Neurological: See HPI Endocrine: See HPI Hematologic/Lymphatic: No Symptoms Reported Past Bywhfgo-Ransjo-Emspku Hx Patient Social History 2nd Hand Smoke Exposure: No Recent Foreign Travel: No Contact w/Someone Who Travel: No Recent Hopitalizations: No Surgeries History of Surgeries: Yes (Dialysis catheter to the right chest wall) Respiratory History of Respiratory Disorde: No Cardiovascular History of Cardiac Disorders: Yes (CHRONIC VENOUS INSUFFICIENCY) Cardiac Disorders: Hypertension, Peripheral Vascular Neurological History of Neurological Disord: Yes Neurological Disorders: Neuropathy Genitourinary History of Genitourinary Disor: Yes Genitourinary Disorders: Renal Failure, Dialysis Gastrointestinal History of Gastrointestinal Di: No Musculoskeletal History of Musculoskeletal Dis: Yes (LEFT CHARCOT FOOT) Endocrine History of Endocrine Disorders: Yes Endocrine Disorders: Diabetes, Insulin dep Cancer History of Cancer: No Psychosocial History of Psychiatric Problem: No Blood Transfusions History of Blood Disorders: Yes (iron deficiency anemia) Family Medical History Significant Family History: Hypertension Physical Exam Vital Signs Vital Sign - Last 12Hours 03/30/17 03/30/17 03/30/17 19:40 19:41 21:32 Temp 98.4 Pulse 89 Resp 20 B/P (MAP) 264/97 (152) Pulse Ox 97 O2 Delivery Room Air O2 Flow Rate 3.00 FiO2 30 Capillary Refill : General Appearance: WD/WN, other (intermittent seizing with unresponsive state between seizure episodes) HEENT: normal ENT inspection, pharynx normal Neck: normal inspection Respiratory: lungs clear, normal breath sounds, no respiratory distress, no accessory muscle use Cardiovascular: regular rate, rhythm, no edema, no murmur Gastrointestinal: normal bowel sounds, soft Extremities: normal inspection, no pedal edema Neurologic/Psychiatric: other (unresponsive with intermittent seizure episodes. Pupils equally round and sluggish) Skin: normal color, warm/dry Focused Exam Evaluation Lactate Level Laboratory Tests 03/30/17 21:11: Lactic Acid Level 6.87*H 03/30/17 23:10: Lactic Acid Level 3.78*H Lactic Acid Level Laboratory Tests Test 03/30/17 21:11 03/30/17 23:10 Lactic Acid Level 6.87 MMOL/L (0.50-2.00) *H 3.78 MMOL/L (0.50-2.00) *H Date of ETT Placement: Mar 30, 2017 Time of ETT Placement: 2053 Intubation Method: orotracheal Tube Size: 7.50 Medications: Propofol (100) Positive End Tide CO2: Yes Breath Sounds after Intubation: bilateral-equal Intubation Complications: no complications Post Intubation Xray: Yes Progress/Results/Core Measures Results/Orders Lab Results Laboratory Tests Test 03/30/17 19:44 03/30/17 19:45 03/30/17 21:11 03/30/17 21:23 Range/Units Glucometer > 600 *H 534 *H 70-110 MG/DL White Blood Count 13.5 H 4.3-11.0 10^3/uL Red Blood Count 4.22 L 4.35-5.85 10^6/uL Hemoglobin 11.9 L 13.3-17.7 G/DL Hematocrit 32 L 40-54 % Mean Corpuscular Volume 75 L 80-99 FL Mean Corpuscular Hemoglobin 28 25-34 PG Mean Corpuscular Hemoglobin Concent 38 H 32-36 G/DL Red Cell Distribution Width 15.0 H 10.0-14.5 % Platelet Count 290 130-400 10^3/uL Mean Platelet Volume 11.0 H 7.4-10.4 FL Neutrophils (%) (Auto) 84 H 42-75 % Lymphocytes (%) (Auto) 9 L 12-44 % Monocytes (%) (Auto) 6 0-12 % Eosinophils (%) (Auto) 1 0-10 % Basophils (%) (Auto) 0 0-10 % Neutrophils # (Auto) 11.4 H 1.8-7.8 X 10^3 Lymphocytes # (Auto) 1.3 1.0-4.0 X 10^3 Monocytes # (Auto) 0.8 0.0-1.0 X 10^3 Eosinophils # (Auto) 0.1 0.0-0.3 10^3/uL Basophils # (Auto) 0.0 0.0-0.1 10^3/uL Prothrombin Time 13.0 12.2-14.7 SEC INR Comment 1.0 0.8-1.4 Activated Partial Thromboplast Time 24 24-35 SEC D-Dimer 0.43 0.00-0.49 UG/ML Urine Color YELLOW Urine Clarity CLEAR Urine pH 5 5-9 Urine Specific [place] 1.005 L 1.016-1.022 Urine Protein 3+ H NEGATIVE Urine Glucose (UA) 4+ H NEGATIVE Urine Ketones NEGATIVE NEGATIVE Urine Nitrite NEGATIVE NEGATIVE Urine Bilirubin NEGATIVE NEGATIVE Urine Urobilinogen NORMAL NORMAL MG/DL Urine Leukocyte Esterase NEGATIVE NEGATIVE Urine RBC (Auto) 3+ H NEGATIVE Urine RBC 5-10 H /HPF Urine WBC NONE /HPF Urine Crystals NONE /LPF Urine Bacteria NONE /HPF Urine Casts NONE /LPF Urine Mucus NEGATIVE /LPF Urine Culture Indicated NO Sodium Level 126 L 135-145 MMOL/L Potassium Level 3.4 L 3.6-5.0 MMOL/L Chloride Level 89 L 98-107 MMOL/L Carbon Dioxide Level 14 L 21-32 MMOL/L Anion Gap 23 H 5-14 MMOL/L Blood Urea Nitrogen 27 H 7-18 MG/DL Creatinine 7.52 #H 0.60-1.30 MG/DL Estimat Glomerular Filtration Rate 9 BUN/Creatinine Ratio 4 Glucose Level 764 *H 70-105 MG/DL Calcium Level 7.7 L 8.5-10.1 MG/DL Total Bilirubin 0.3 0.1-1.0 MG/DL Aspartate Amino Transf (AST/SGOT) 19 5-34 U/L Alanine Aminotransferase (ALT/SGPT) 14 0-55 U/L Alkaline Phosphatase 159 H 40-136 U/L Total Creatine Kinase 388 H 30-200 U/L Creatine Kinase MB 5.8 <6.6 NG/ML Myoglobin 387.0 H 10.0-92.0 NG/ML Troponin I < 0.30 <0.30 NG/ML Total Protein 7.7 6.4-8.2 GM/DL Albumin 3.9 3.2-4.5 GM/DL TSH [place] Testing 1.66 0.35-4.94 UIU/ML Salicylates Level < 5.0 L 5.0-20.0 MG/DL Urine Opiates Screen NEGATIVE NEGATIVE Urine Oxycodone Screen NEGATIVE NEGATIVE Urine Methadone Screen NEGATIVE NEGATIVE Urine Propoxyphene Screen NEGATIVE NEGATIVE Acetaminophen Level < 10 L 10-30 UG/ML Urine Barbiturates Screen NEGATIVE NEGATIVE Ur Tricyclic Antidepressants Screen NEGATIVE NEGATIVE Urine Phencyclidine Screen NEGATIVE NEGATIVE Urine Amphetamines Screen NEGATIVE NEGATIVE Urine Methamphetamines Screen NEGATIVE NEGATIVE Urine Benzodiazepines Screen NEGATIVE NEGATIVE Urine Cocaine Screen NEGATIVE NEGATIVE Urine Cannabinoids Screen NEGATIVE NEGATIVE Serum Alcohol < 10 <10 MG/DL Lactic Acid Level 6.87 *H 0.50-2.00 MMOL/L Test 03/30/17 23:10 03/30/17 23:43 Range/Units Lactic Acid Level 3.78 *H 0.50-2.00 MMOL/L Glucometer 302 H 70-110 MG/DL My Orders Orders - SHARMIN ALFREDO MD [place] Cath Insertion (03/30/17 20:15) Propofol Drip (Icu) (Diprivan Drip (Icu) (03/30/17 20:23) Ns Iv 1000 Ml (Sodium Chloride 0.9%) (03/30/17 21:12) Ns Iv 1000 Ml (Sodium Chloride 0.9%) (03/30/17 21:12) Accucheck Stat ONCE (03/30/17 21:19) Chest 1 View, Ap/Pa Only (03/30/17 ) Insulin (Regular) Human (Humulin R (Per (03/30/17 22:30) Lorazepam Injection (Ativan Injection) (03/30/17 22:30) Propofol Drip (Icu) (Diprivan Drip (Icu) (03/30/17 22:38) Medications Given in ED Current Medications Medications Dose Ordered Sig/Aaron Route Start Time Stop Time Status Last Admin Dose Admin Insulin Human Regular 5 unit ONCE ONCE IV 03/30/17 22:30 03/30/17 22:31 DC 03/30/17 22:31 5 UNIT Lorazepam 1 mg ONCE ONCE IVP 03/30/17 19:45 03/30/17 19:49 DC 03/30/17 19:41 2 MG Lorazepam 2 mg ONCE ONCE IVP 03/30/17 22:30 03/30/17 22:31 DC 03/30/17 20:01 2 MG Metoprolol Tartrate 5 mg ONCE ONCE IV 03/30/17 19:45 03/30/17 19:49 DC 03/30/17 19:55 5 MG Propofol 100 ml @ ud STK-MED ONCE IV 03/30/17 20:23 03/30/17 20:26 DC 03/30/17 20:30 18 MLS/HR Propofol 100 ml @ ud STK-MED ONCE IV 03/30/17 22:38 03/30/17 22:40 DC 03/30/17 23:04 22.5 MLS/HR Sodium Chloride 1,000 ml @ 0 mls/hr Q0M ONCE IV 03/30/17 21:12 03/30/17 21:13 DC 03/30/17 21:16 500 MLS/HR Vital Signs/I&O Vital Sign - Last 12Hours 03/30/17 03/30/17 03/30/17 03/30/17 19:40 19:41 20:30 21:32 Temp 98.4 98.4 Pulse 89 65 65 Resp 20 14 14 B/P (MAP) 264/97 (152) 95/50 Pulse Ox 97 100 100 O2 Delivery Room Air Room Air Room Air O2 Flow Rate 3.00 3.00 FiO2 30 03/30/17 03/30/17 22:32 23:04 Pulse 59 Resp 12 12 B/P (MAP) 114/64 Pulse Ox 100 95 FiO2 21 Intake and Output 03/31/17 00:00 Intake Total 1500 ml Balance 1500 ml Diagnostic Imaging Diagonstic Imaging: Xray Plain Films/CT/US/NM/MRI: chest Comments Chest x-ray viewed by me and report reviewed. See report below: NAME: HORTENCIA LUNA MED REC#: [id number] PT STATUS: REG ER : 09/19/1977 PHYSICIAN: SHARMIN ALFREDO MD ADMIT DATE: 03/30/17/ER Draft Date of Exam:03/30/17 CHEST PA/LAT (2 VIEW) INDICATION: Shortness of breath and weakness and dizziness PA and lateral chest obtained at 0702 p.m. Heart and mediastinal silhouette are normal in appearance. The lungs are clear. There is no pneumothorax or pleural fluid. IMPRESSION: Negative chest. Dictated on workstation # [id number] Dict: 03/30/174 Trans: 03/30/17 1857 [facility] [id number] Interpreted by: YADIRA BOWER MD Diagonstic Imaging: CT Plain Films/CT/US/NM/MRI: head Comments CT report reviewed. See report below: NAME: ESVIN PATHAK MED REC#: [id number] PT STATUS: REG ER : 1965 PHYSICIAN: WILLIAMS STOVER ADMIT DATE: 03/30/17/ER Signed Date of Exam: 03/30/17 CT HEAD WO-R/O STROKE INDICATION: Patient unresponsive. EXAM: Noncontrast brain CT performed. 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 There is no acute hemorrhage or mass effect or midline shift. There is no new intraparenchymal abnormality in the brain. Calvarial windows are unremarkable. 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 No acute hemorrhage or mass effect or acute intracranial process. Stable appearance compared with 03/28/2017. Dictated by: Dictated on workstation # [id number] Dict: 03/30/172028 Trans: 03/30/172121 Interpreted by: YADIRA BOWER MD Electronically signed by: YADIRA BOWER MD 03/30/172121 Diagonstic Imaging: Xray Plain Films/CT/US/NM/MRI: chest Comments Chest x-ray viewed by me and report reviewed. See report below: NAME: ESVIN PATHAK [facility] REC#: [id number] PT STATUS: REG ER : 1965 PHYSICIAN: SHARMIN ALFREDO MD ADMIT DATE: 03/30/17/ER Signed Date of Exam: 03/30/17 CHEST 1 VIEW, AP/PA ONLY INDICATION: Intubation EXAM: Frontal chest obtained at 9:21 hours p.m. COMPARISON with same day at 8:22 hours p.m. FINDINGS: ET tube tip overlies the mid trachea. NG tube tip overlies the mid to distal stomach. Dual-lumen central catheter is seen with tip overlying the right atrium. There is no pneumothorax or pleural fluid or focal infiltrate. IMPRESSION: New ET tube and NG tube, as above. No definite focal infiltrate or pneumothorax or other new finding. Dictated by: Dictated on workstation # [id number] Dict: 03/30/172131 Trans: 03/30/172139 Interpreted by: YADIRA BOWER MD Electronically signed by: YADIRA BOWER MD 03/30/172139 Critical Care Note Critical Care Start Time: 19:41 Progress Patient was significant only hypertensive and was given Lopressor 5 mg by IV route. He was also significant hyperglycemic and was given 10 units of insulin by IV route. Patient was given Ativan 2 mg to treat initial seizure. Seizure eventually stopped but seizure activity returned. He was given a second dose of Ativan 2 mg IV. Seizure activity stopped briefly but restarted again. Patient was then given Versed 5 mg IV. Again seizure stopped but then restarted. Patient was completely unresponsive between seizures. Because of patient's significant comorbidities and unresponsive state between seizures, it is felt important to intubate this patient for protection of his airway. 3 times a day and patient were made by this provider first using a curved blade, then a straight blade, then the Julian scope. Due to edema near the cords and anterior position, intubation was not successful. Patient had been placed on a propofol drip prior to intubation and boluses of 40 and 60 mg of propofol were used for induction. Patient also received fentanyl 100 g. Intubation was eventually successfully achieved by anesthesia demolition expert. Patient was stable after intubation but blood pressure dropped significantly. Patient completed 1 L of IV fluids as started by EMS. Because of borderline blood pressures a second liter of IV fluids was initiated. He received 500 mL of the second bag totaling 1500 mL. Blood pressure was then stable. I contacted [facility] in [place] to inquire about transfer. This seemed logical since he was admitted there on March 28. Unfortunately [facility] is on ICU diversion as is [facility] in [place]. [facility] was then contacted and I spoke with the triage nurse at 21:50. [facility] called back at 22:15. Patient was accepted by Dr. Valentino or transfer. I was notified at 22:45 that there will be a delay in helicopter transport due to availability and freezing missed in [place]. Helicopter companies eventually had to be changed due to inability of [employer] to fly in current weather conditions. [facility] was used for transfer and arrived at approximately 00:30. Patient remained stable with appropriate vital signs until transfer. Sedation was maintained on propofol drip. He received a total of 1500 mL of normal saline. Departure Impression Impression: Primary Impression: Intractable seizures Additional Impressions: Hyperglycemia Acidosis End stage renal failure on dialysis Disposition: [facility] Condition: Improved Departure-Patient Inst. Referrals: [facility] (PCP/Family) Primary Care Physician SHARMIN ALFREDO MD Mar 30, 2017 21:50
[2017-03-30] MEDS ORDERED: inSUlin (REGULAR) HUMAN 1 UNIT/0.01 ML (CHARGE PER UNIT) IV ONE (22:30)
[2017-03-30 22:32] VITALS: BP 115/66
[2017-03-30] MEDS ORDERED: METO-395 PO (22:50)
[2017-03-30] MEDS ORDERED: METO2.5T PO (22:52)
[2017-03-31 00:59] VITALS: BP 129/75
== END 2017-03-31 00:59 | disposition short-term general hospital (02) ==
LOC: EDUNIT# 19:40 → ER 19:41
DX: R56.9 Unspecified convulsions (principal); E11.65 Type 2 diabetes mellitus with hyperglycemia; E87.2 Acidosis; E11.22 Type 2 diabetes mellitus with diabetic chronic kidney disease; I12.0 Hypertensive chronic kidney disease with stage 5 chronic kidney disease or end stage renal disease; N18.6 End stage renal disease; E11.51 Type 2 diabetes mellitus with diabetic peripheral angiopathy without gangrene; I73.9 Peripheral vascular disease, unspecified; Z77.22 Contact with and (suspected) exposure to environmental tobacco smoke (acute) (chronic); Z86.73 Personal history of transient ischemic attack (TIA), and cerebral infarction without residual deficits; Z79.4 Long term (current) use of insulin
CPT/HCPCS: 31500; 36415; 51702; 70450; 71045; 80053; 80306; 80320; 80329; 81000; 82550; 82553; 82962; 83605; 83874; 84443; 84484; 85025; 85379; 85610; 85730; 93005; 93041; 94002; 94799; 96365; 96366; 96375; 96376

== ENCOUNTER 2017-04-05 14:43 | Inpatient (IN) | payer MEDICARE ==
[~2017-04-05] VITALS: Ht 172.7 cm; Wt 76.7 kg
[~2017-04-05 14:43] MED LIST changes: -LORazepam INJ 2 MG/ML (ATIVAN) VIAL ONE; +METO-395 PO; +METO2.5T PO; -MIDAZOLAM 5 MG/5 ML (VERSED) VIAL IV ONE; -ROCURONIUM 50 MG/5 ML (ZEMURON) VIAL IV ONE; -fentaNYL INJECTION 100 MCG/2 ML AMP INJ ONE
--- OUTSIDE RECORDS SUMMARY | 2017-04-06 01:38 | XMS REPORT | Continuity of Care Document ---
Author Author [employer] Organization [facility] Address Unknown Phone Unavailable Care Team Providers Care [employer] Member Name Role Phone [employer] Unavailable Unavailable Problems Medications Allergies, Adverse Reactions, Alerts Immunizations Results Vital Signs Encounters Location Location Details Encounter Type Encounter Number Reason For Visit Attending Provider ADM Date DC Date Status Source O 03/30/2017 03/30/2017 Active [facility] INPATIENT [id number] ELIZABETH CHOW 03/31/2017 04/05/2017 Active [facility] Procedures Plan of Care Social History Assessment and Plan Family History Advance Directives Functional Status
--- OUTSIDE RECORDS SUMMARY | 2017-04-06 01:39 | XMS REPORT | Clinical Summary ---
Author Author [facility] Organization [facility] Address Unknown Phone Unavailable Care Team Providers Care Ip Litigation Paralegal Name Role Phone PCP Unavailable Source Comments Some departments are not documenting in the electronic medical record. If you do not see the information that you expected, contact Release of Information in the Health Information Management department at [phone] for further assistance in locating additional records.[facility] Allergies No Known Allergies Current Medications Prescription Sig. Disp. Refills Start End Date Status Date amLODIPine (NORVASC) 10 Take 10 mg by mouth Active mg tablet daily. insulin glargine (LANTUS Inject 10 Units under the Active SOLOSTAR, BASAGLAR) 100 skin at bedtime daily. unit/mL (3 mL) injection PEN metoprolol XL (TOPROL XL) Take 100 mg by mouth Active 100 mg extended release daily. tablet ascorbic acid (VITAMIN C) Take 500 mg by mouth Active 500 mg tablet daily. ferrous sulfate (FEOSOL, Take 325 mg by mouth Active FEROSUL) 325 mg (65 mg daily. Take on an empty iron) tablet stomach at least 1 hour before or 2 hours after food. levETIRAcetam (KEPPRA) Take 1 tablet by mouth 04/06/19 Active 750 mg tablet daily. Give at 1200 on 18 non-HD days (//Wed/Wed). Then on HD days (//) give immediately after dialysis metFORMIN (GLUCOPHAGE) Take 500 mg by mouth 04/05/19 Discontin 500 mg tablet twice daily with meals. 18 ued metOLazone (ZAROXOLYN) Take 2.5 mg by mouth 04/05/19 Discontin 2.5 mg tablet daily. 18 ued nitrofurantoin Take 100 mg by mouth 01/17/20 Discontin monohyd/m-cryst every 12 hours. Take with 18 ued (MACROBID) 100 mg capsule food. Active Problems Problem Noted Date Stage 5 chronic kidney disease on chronic dialysis ([facility]) 03/31/2017 Type 2 diabetes mellitus with hyperglycemia, with long-term current use of 03/31/2017 insulin ([facility]) HTN (hypertension) 03/31/2017 PVD (peripheral vascular disease) ([facility]) 03/31/2017 Diabetic Charcot foot ([facility]) 03/31/2017 Anemia in chronic kidney disease, on chronic dialysis ([facility]) 03/31/2017 Encounters Date Type Specialty Care Team Description 03/31/2017 [facility] Dago Beyer MD Stage 5 chronic kidney - Encounter Rosa Isela Ocasio MD disease on chronic 04/05/2017 Lance Artis MD dialysis ([facility]) 03/31/2017 Procedure Pass 03/31/2017 Procedure Pass 03/31/2017 Procedure Pass 03/30/2017 [facility] Arrived Encounter 03/30/2017 Hospital Radiology Arrived Encounter 03/28/2017 Hospital Radiology Encounter from Last 3 Months Social History Tobacco Use Types Packs/Day Years Used Date Never Smoker Smokeless Tobacco: Never Used Sex Assigned at Date Recorded Not on file Last Filed Vital Signs Vital Sign Reading Time Taken Blood Pressure 136/81 04/05/2017 6:45 PM [facility] Pulse 74 04/05/2017 6:45 PM [employer] Temperature 36.7 C (98 F) 04/05/2017 6:45 PM [employer] Respiratory Rate - - Oxygen Saturation 100% 04/05/2017 6:45 PM [employer] Inhaled Oxygen - - Concentration Weight 73.8 kg (162 lb 11.2 oz) 04/05/2017 1:43 PM [employer] Height 172.7 cm (5' 8") 04/04/2017 4:59 PM [employer] Body Mass Index 24.74 04/05/2017 1:43 PM [employer] Plan of Treatment Health Maintenance Due Date Last Done Comments PHYSICAL (COMPREHENSIVE) 1972 EXAM PERTUSSIS VACCINE 1976 TETANUS VACCINE 1982 COLORECTAL CANCER 07/10/2015 SCREENING INFLUENZA VACCINE 10/13/2016 Results * BASIC METABOLIC PANEL (04/05/2017 7:31 PM) Only the most recent of 9 results within the time period is included. Component Value Ref Range Sodium 131 (L) 137 - 147 MMOL/L Potassium 3.2 (L) 3.5 - 5.1 MMOL/L Chloride 97 (L) 98 - 110 MMOL/L CO2 27 21 - 30 MMOL/L Anion Gap 7 3 - 12 Glucose 174 (H) 70 - 100 MG/DL Blood Urea Nitrogen 12 7 - 25 MG/DL Creatinine 3.65 (H) 0.4 - 1.24 MG/DL Calcium 8.2 (L) 8.5 - 10.6 MG/DL eGFR Non 18 (L) >60 mL/min Comment: The eGFR is not validated for use in drug dosing adjustments. Continue to use estimated creatinine clearance per dosing reference text. Please contact the Clinical Pharmacist for questions. eGFR 21 (L) >60 mL/min Comment: The eGFR is not validated for use in drug dosing adjustments. Continue to use estimated creatinine clearance per dosing reference text. Please contact the Clinical Pharmacist for questions. Specimen Performing Laboratory [facility] [address] [place] [address] * POC GLUCOSE (04/05/2017 6:49 PM) Only the most recent of 56 results within the time period is included. Component Value Ref Range Glucose, POC 135 (H) 70 - 100 MG/DL Specimen Performing Laboratory [facility] [address] [place] [address] * HEMODIALYSIS DATE (04/05/2017 6:31 PM) Only the most recent of 3 results within the time period is included. Narrative Yimi Nugent RN 04/05/20176:31 PM 1245 Report received PRAVEENA Murphy. 1330 Patient arrived on bed,alert and oriented x 4,RA,WOODRUFF,denies pain,VSS per patient trends. Initial assessment completed and charted per doc flow sheets. 1343 Tunneled catheter accessed without any problems. Dialysis started per orders: HEMODIALYSIS INPATIENT [[id number]] 6 Status: Active Ordering user: Aaron Westbrook 04/05/17646 Ordering provider: Aaron Westbrook Authorized by: Aaron Westbrook Frequency: Once 04/05/17 0730 - 1 Occurrences Released by: Rosaura Cardoso RN 04/05/17716 Questions: Date Hemodialysis to be performed: 04/05/2017 Type of Hemodialysis: Conventional Hemodialysis Dialyzer: [employer] Optiflux F160 Type of Access: Tunneled Dialysis Catheter Maximum Blood flow Rate (BFR)(mL/min): 400 Comment - May reduce Blood Flow Rate if access or return pressure exceeds +/- 250 mmHg or symptomatic for hypovolemia Maximum Dialysate flow rate (mL/min): 800 Duration of treatment __ hours: 3.5 Comment - May adjust duration to match outpatient orders Initial Net Ultrafiltration Goal: To Dry Weight (Specify in comments) Comment - May reduce goal or place in minimum ultrafiltration rate if MAP <60 mmHg or symptomatic for hypovolemia Comments: 72 kg Potassium (K+) Bath: Follow Hemodialysis Protocol Calcium (Ca++) Bath 2.5 mEq/L Bicarbonate: 35 mEq/L Sodium (Na+) Modeling: Standard 140 mEq UF Modeling: Comment - May select UF Profile PRN to optimize fluid removal 1435 Dr. Lozano at bedside . Will continue monitoring. 1800 Dialysis finished, blood returned, tunneled catheter deaccessed, flushed, packed, and capped. * HEMODIALYSIS INPATIENT (04/05/2017 6:31 PM) Only the most recent of 3 results within the time period is included. Narrative Yimi Nugent RN 04/05/20176:31 PM 1245 Report received PRAVEENA Murphy. 1330 Patient arrived on bed,alert and oriented x 4,RA,WOODRUFF,denies pain,VSS per patient trends. Initial assessment completed and charted per doc flow sheets. 1343 Tunneled catheter accessed without any problems. Dialysis started per orders: HEMODIALYSIS INPATIENT [[id number]] 6 Status: Active Ordering user: Aarno Westbrook 04/05/17646 Ordering provider: Aaron Westbrook Authorized by: Aaron Westbrook Frequency: Once 04/05/17 0730 - 1 Occurrences Released by: Rosaura Cardoso RN 04/05/17 0717 Questions: Date Hemodialysis to be performed: 04/05/2017 Type of Hemodialysis: Conventional Hemodialysis Dialyzer: [employer] Optiflux F160 Type of Access: Tunneled Dialysis Catheter Maximum Blood flow Rate (BFR)(mL/min): 400 Comment - May reduce Blood Flow Rate if access or return pressure exceeds +/- 250 mmHg or symptomatic for hypovolemia Maximum Dialysate flow rate (mL/min): 800 Duration of treatment __ hours: 3.5 Comment - May adjust duration to match outpatient orders Initial Net Ultrafiltration Goal: To Dry Weight (Specify in comments) Comment - May reduce goal or place in minimum ultrafiltration rate if MAP <60 mmHg or symptomatic for hypovolemia Comments: 72 kg Potassium (K+) Bath: Follow Hemodialysis Protocol Calcium (Ca++) Bath 2.5 mEq/L Bicarbonate: 35 mEq/L Sodium (Na+) Modeling: Standard 140 mEq UF Modeling: Comment - May select UF Profile PRN to optimize fluid removal 1435 Dr. Lozano at bedside . Will continue monitoring. 1800 Dialysis finished, blood returned, tunneled catheter deaccessed, flushed, packed, and capped. * IONIZED CALCIUM (04/05/2017 5:10 AM) Only the most recent of 7 results within the time period is included. Component Value Ref Range Ionized Calcium 1.06 1.0 - 1.3 MMOL/L Specimen Performing Laboratory [facility] [address] [id number] * CBC AND DIFF (04/05/2017 5:09 AM) Only the most recent of 7 results within the time period is included. Component Value Ref Range White Blood Cells 8.5 4.5 - 11.0 K/UL RBC 3.71 (L) 4.4 - 5.5 M/UL Hemoglobin 10.2 (L) 13.5 - 16.5 GM/DL Hematocrit 29.7 (L) 40 - 50 % MCV 80.1 80 - 100 FL MCH 27.5 26 - 34 PG MCHC 34.3 32.0 - 36.0 G/DL RDW 16.4 (H) 11 - 15 % Platelet Count 287 150 - 400 K/UL MPV 7.7 7 - 11 FL Neutrophils 51 41 - 77 % Lymphocytes 34 24 - 44 % Monocytes 11 4 - 12 % Eosinophils 3 0 - 5 % Basophils 1 0 - 2 % Absolute Neutrophil Count 4.40 1.8 - 7.0 K/UL Absolute Lymph Count 2.90 1.0 - 4.8 K/UL Absolute Monocyte Count 0.90 (H) 0 - 0.80 K/UL Absolute Eosinophil Count 0.20 0 - 0.45 K/UL Absolute Basophil Count 0.00 0 - 0.20 K/UL Specimen Performing Laboratory [facility] [address] [place] [address] * PHOSPHORUS (04/05/2017 5:09 AM) Only the most recent of 10 results within the time period is included. Component Value Ref Range Phosphorus 4.0 2.0 - 4.0 MG/DL Specimen Performing Laboratory [facility] [address] [place] [address] * MAGNESIUM (04/05/2017 5:09 AM) Only the most recent of 11 results within the time period is included. Component Value Ref Range Magnesium 2.3 1.6 - 2.6 mg/dL Specimen Performing Laboratory [facility] [address] [place] [address] * TROPONIN-I (04/01/2017 4:00 AM) Only the most recent of 4 results within the time period is included. Component Value Ref Range Troponin-I 0.08 (H) 0.0 - 0.05 NG/ML Specimen Performing Laboratory [facility] [address] [place] [address] * COMPREHENSIVE METABOLIC PANEL (04/01/2017 4:00 AM) Only the most recent of 3 results within the time period is included. Component Value Ref Range Sodium 135 (L) 137 - 147 MMOL/L Potassium 3.7 3.5 - 5.1 MMOL/L Chloride 105 98 - 110 MMOL/L Glucose 135 (H) 70 - 100 MG/DL Blood Urea Nitrogen 31 (H) 7 - 25 MG/DL Creatinine 7.13 (H) 0.4 - 1.24 MG/DL Calcium 7.6 (L) 8.5 - 10.6 MG/DL Total Protein 5.5 (L) 6.0 - 8.0 G/DL Total Bilirubin 0.3 0.3 - 1.2 MG/DL Albumin 2.7 (L) 3.5 - 5.0 G/DL Alk Phosphatase 95 25 - 110 U/L AST (SGOT) 13 7 - 40 U/L CO2 19 (L) 21 - 30 MMOL/L ALT (SGPT) 5 (L) 7 - 56 U/L Anion Gap 11 3 - 12 eGFR Non 8 (L) >60 mL/min Comment: The eGFR is not validated for use in drug dosing adjustments. Continue to use estimated creatinine clearance per dosing reference text. Please contact the Clinical Pharmacist for questions. eGFR 10 (L) >60 mL/min Comment: The eGFR is not validated for use in drug dosing adjustments. Continue to use estimated creatinine clearance per dosing reference text. Please contact the Clinical Pharmacist for questions. Specimen Performing Laboratory [facility] [address] [place] [address] * MRA NECK WO CONTRAST (03/31/2017 6:50 PM) Specimen Performing Laboratory [facility] RESULTS Impressions MR brain: 1. 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 2. 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 3. 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 Correlation with EEG is suggested 4. Increased number of small gyri within the portions of the frontal cortices without abnormal cortical thickening or abnormal signal. MRA head: Normal MRA of the head without aneurysm or stenosis. MRA neck: Normal MRA of the neck without focal narrowing by NASCET criteria. Approved by Dago Maciel M.D. on 04/01/2017 4:32 PM By my electronic signature, I attest that I have personally reviewed the images for this examination and formulated the interpretations and opinions expressed in this report Finalized by Emile Evans M.D. on 04/01/2017 5:07 PM. Dictated by Dago Maciel M.D. on 04/01/2017 8:24 AM. Narrative EXAM: MRI AND MRA BRAIN, MRA NECK HISTORY: 51 year old male, seizure activity. TECHNIQUE: Multiplanar and multisequence MR imaging of the head was performed without the administration of gadolinium contrast. 3D [id number]-[id number] of the [place] was performed without contrast. 3D non-contrast enhanced MRA of the carotids and the vertebral arteries was performed. MRA maximum intensity projection images were obtained of the brain and neck with image postprocessing. 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 There is abnormal internal morphology and signal of the left hippocampus. Increased number of small gyri along the lateral inferior frontal lobes (for example image 99 series 11), without cortical thickening or abnormal signal. No definite heterotopia is identified. No mass or abnormality on susceptibility weighted imaging. MRA head: The distal internal carotid, vertebral, and basilar arteries are patent without focal narrowing or occlusion. The anterior, middle, and posterior cerebral arteries are patent without focal narrowing. No aneurysm or arteriovenous malformation is identified. MRA neck: The aortic arch vessel origins are widely patent. The common carotid and cervical portions of the internal carotid and vertebral arteries are patent without focal narrowing according to NASCET criteria. No aneurysm, AVM, or dissection is identified. Procedure Note Interface, Radiant Results - 04/01/2017 5:11 PM [employer] EXAM: MRI AND MRA BRAIN, MRA NECK HISTORY: 51 year old male, seizure activity. TECHNIQUE: Multiplanar and multisequence MR imaging of the head was performed without the administration of gadolinium contrast. 3D [id number]-[id number] images of the [place] was performed without contrast. 3D non-contrast enhanced MRA of the carotids and the vertebral arteries was performed. MRA maximum intensity projection images were obtained of the brain and neck with image postprocessing. 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 There is abnormal internal morphology and signal of the left hippocampus. Increased number of small gyri along the lateral inferior frontal lobes (for example image 99 series 11), without cortical thickening or abnormal signal. No definite heterotopia is identified. No mass or abnormality on susceptibility weighted imaging. MRA head: The distal internal carotid, vertebral, and basilar arteries are patent without focal narrowing or occlusion. The anterior, middle, and posterior cerebral arteries are patent without focal narrowing. No aneurysm or arteriovenous malformation is identified. MRA neck: The aortic arch vessel origins are widely patent. The common carotid and cervical portions of the internal carotid and vertebral arteries are patent without focal narrowing according to NASCET criteria. No aneurysm, AVM, or dissection is identified. IMPRESSION MR brain: 1. 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 2. 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 3. 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 Correlation with EEG is suggested 4. Increased number of small gyri within the portions of the frontal cortices without abnormal cortical thickening or abnormal signal. MRA head: Normal MRA of the head without aneurysm or stenosis. MRA neck: Normal MRA of the neck without focal narrowing by NASCET criteria. Approved by Dago Maciel M.D. on 04/01/2017 4:32 PM By my electronic signature, I attest that I have personally reviewed the images for this examination and formulated the interpretations and opinions expressed in this report Finalized by Emile Evans M.D. on 04/01/2017 5:07 PM. Dictated by Dago Maciel M.D. on 04/01/2017 8:24 AM. * MRA HEAD WO CONTRAST (03/31/2017 6:50 PM) Specimen Performing Laboratory [facility] RESULTS Impressions MR brain: 1. 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 2. 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 3. 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 Correlation with EEG is suggested 4. Increased number of small gyri within the portions of the frontal cortices without abnormal cortical thickening or abnormal signal. MRA head: Normal MRA of the head without aneurysm or stenosis. MRA neck: Normal MRA of the neck without focal narrowing by NASCET criteria. Approved by Dago Maciel M.D. on 04/01/2017 4:32 PM By my electronic signature, I attest that I have personally reviewed the images for this examination and formulated the interpretations and opinions expressed in this report Finalized by Emile Evans M.D. on 04/01/2017 5:07 PM. Dictated by Dago Maciel M.D. on 04/01/2017 8:24 AM. Narrative EXAM: MRI AND MRA BRAIN, MRA NECK HISTORY: 51 year old male, seizure activity. TECHNIQUE: Multiplanar and multisequence MR imaging of the head was performed without the administration of gadolinium contrast. 3D [id number]-hk-rurshyhcckwg of the [place] was performed without contrast. 3D non-contrast enhanced MRA of the carotids and the vertebral arteries was performed. MRA maximum intensity projection images were obtained of the brain and neck with image postprocessing. 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 There is abnormal internal morphology and signal of the left hippocampus. Increased number of small gyri along the lateral inferior frontal lobes (for example image 99 series 11), without cortical thickening or abnormal signal. No definite heterotopia is identified. No mass or abnormality on susceptibility weighted imaging. MRA head: The distal internal carotid, vertebral, and basilar arteries are patent without focal narrowing or occlusion. The anterior, middle, and posterior cerebral arteries are patent without focal narrowing. No aneurysm or arteriovenous malformation is identified. MRA neck: The aortic arch vessel origins are widely patent. The common carotid and cervical portions of the internal carotid and vertebral arteries are patent without focal narrowing according to NASCET criteria. No aneurysm, AVM, or dissection is identified. Procedure Note Interface, Radiant Results - 04/01/2017 5:11 PM [employer] EXAM: MRI AND MRA BRAIN, MRA NECK HISTORY: 51 year old male, seizure activity. TECHNIQUE: Multiplanar and multisequence MR imaging of the head was performed without the administration of gadolinium contrast. 3D yrmm-pm-acbjmy images of the [place] was performed without contrast. 3D non-contrast enhanced MRA of the carotids and the vertebral arteries was performed. MRA maximum intensity projection images were obtained of the brain and neck with image postprocessing. 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 There is abnormal internal morphology and signal of the left hippocampus. Increased number of small gyri along the lateral inferior frontal lobes (for example image 99 series 11), without cortical thickening or abnormal signal. No definite heterotopia is identified. No mass or abnormality on susceptibility weighted imaging. MRA head: The distal internal carotid, vertebral, and basilar arteries are patent without focal narrowing or occlusion. The anterior, middle, and posterior cerebral arteries are patent without focal narrowing. No aneurysm or arteriovenous malformation is identified. MRA neck: The aortic arch vessel origins are widely patent. The common carotid and cervical portions of the internal carotid and vertebral arteries are patent without focal narrowing according to NASCET criteria. No aneurysm, AVM, or dissection is identified. IMPRESSION MR brain: 1. 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 2. 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 3. 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 Correlation with EEG is suggested 4. Increased number of small gyri within the portions of the frontal cortices without abnormal cortical thickening or abnormal signal. MRA head: Normal MRA of the head without aneurysm or stenosis. MRA neck: Normal MRA of the neck without focal narrowing by NASCET criteria. Approved by Dago Maciel M.D. on 04/01/2017 4:32 PM By my electronic signature, I attest that I have personally reviewed the images for this examination and formulated the interpretations and opinions expressed in this report Finalized by Emile Evans M.D. on 04/01/2017 5:07 PM. Dictated by Dago Maciel M.D. on 04/01/2017 8:24 AM. * MRI HEAD WO CONTRAST (03/31/2017 6:50 PM) Specimen Performing Laboratory [facility] RESULTS Impressions MR brain: 1. 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 2. 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 3. 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 Correlation with EEG is suggested 4. Increased number of small gyri within the portions of the frontal cortices without abnormal cortical thickening or abnormal signal. MRA head: Normal MRA of the head without aneurysm or stenosis. MRA neck: Normal MRA of the neck without focal narrowing by NASCET criteria. Approved by Dago Maciel M.D. on 04/01/2017 4:32 PM By my electronic signature, I attest that I have personally reviewed the images for this examination and formulated the interpretations and opinions expressed in this report Finalized by Emile Evans M.D. on 04/01/2017 5:07 PM. Dictated by Dago Maciel M.D. on 04/01/2017 8:24 AM. Narrative EXAM: MRI AND MRA BRAIN, MRA NECK HISTORY: 51 year old male, seizure activity. TECHNIQUE: Multiplanar and multisequence MR imaging of the head was performed without the administration of gadolinium contrast. 3D ikqk-or-gtaejzqbynsk of the [place] was performed without contrast. 3D non-contrast enhanced MRA of the carotids and the vertebral arteries was performed. MRA maximum intensity projection images were obtained of the brain and neck with image postprocessing. 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 There is abnormal internal morphology and signal of the left hippocampus. Increased number of small gyri along the lateral inferior frontal lobes (for example image 99 series 11), without cortical thickening or abnormal signal. No definite heterotopia is identified. No mass or abnormality on susceptibility weighted imaging. MRA head: The distal internal carotid, vertebral, and basilar arteries are patent without focal narrowing or occlusion. The anterior, middle, and posterior cerebral arteries are patent without focal narrowing. No aneurysm or arteriovenous malformation is identified. MRA neck: The aortic arch vessel origins are widely patent. The common carotid and cervical portions of the internal carotid and vertebral arteries are patent without focal narrowing according to NASCET criteria. No aneurysm, AVM, or dissection is identified. Procedure Note Interface, Radiant Results - 04/01/2017 5:11 PM [employer]GER EXAM: MRI AND MRA BRAIN, MRA NECK HISTORY: 51 year old male, seizure activity. TECHNIQUE: Multiplanar and multisequence MR imaging of the head was performed without the administration of gadolinium contrast. 3D vpln-gi-bnmlqd images of the [place] was performed without contrast. 3D non-contrast enhanced MRA of the carotids and the vertebral arteries was performed. MRA maximum intensity projection images were obtained of the brain and neck with image postprocessing. 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 There is abnormal internal morphology and signal of the left hippocampus. Increased number of small gyri along the lateral inferior frontal lobes (for example image 99 series 11), without cortical thickening or abnormal signal. No definite heterotopia is identified. No mass or abnormality on susceptibility weighted imaging. MRA head: The distal internal carotid, vertebral, and basilar arteries are patent without focal narrowing or occlusion. The anterior, middle, and posterior cerebral arteries are patent without focal narrowing. No aneurysm or arteriovenous malformation is identified. MRA neck: The aortic arch vessel origins are widely patent. The common carotid and cervical portions of the internal carotid and vertebral arteries are patent without focal narrowing according to NASCET criteria. No aneurysm, AVM, or dissection is identified. IMPRESSION MR brain: 1. 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 2. 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 3. 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 Correlation with EEG is suggested 4. Increased number of small gyri within the portions of the frontal cortices without abnormal cortical thickening or abnormal signal. MRA head: Normal MRA of the head without aneurysm or stenosis. MRA neck: Normal MRA of the neck without focal narrowing by NASCET criteria. Approved by Dago Maciel M.D. on 04/01/2017 4:32 PM By my electronic signature, I attest that I have personally reviewed the images for this examination and formulated the interpretations and opinions expressed in this report Finalized by Emile Evans M.D. on 04/01/2017 5:07 PM. Dictated by Dago Maciel M.D. on 04/01/2017 8:24 AM. * CREATINE KINASE-CPK (03/31/2017 2:10 PM) Only the most recent of 3 results within the time period is included. Component Value Ref Range Creatine Kinase 284 (H) 35 - 232 U/L Specimen Performing Laboratory Blood [facility] [address] [place] [address] * BLOOD GASES, ARTERIAL (03/31/2017 8:00 AM) Only the most recent of 2 results within the time period is included. Component Value Ref Range pH-Arterial 7.36 7.35 - 7.45 pCO2-Arterial 34 (L) 35 - 45 MMHG pO2-Arterial 121 (H) 80 - 100 MMHG Base Deficit-Arterial 5.8 MMOL/L O2 Sat-Arterial 98.2 95 - 99 % Vyoaxfluoct-LOH-Gex 19.6 (L) 21 - 28 MMOL/L Specimen Performing Laboratory Blood, arterial - Blood [facility] [address] [place] [address] * ABDOMEN AP ONLY (03/31/2017 3:08 AM) Specimen Performing Laboratory [facility] RAD RESULTS Impressions 1. Gastric tube with tip overlying the distal stomach. Approved by Art Crews M.D. on 03/31/2017 1:40 PM By my electronic signature, I attest that I have personally reviewed the images for this examination and formulated the interpretations and opinions expressed in this report Finalized by Madisyn Dotson M.D. on 03/31/2017 1:41 PM. Dictated by Art Crews M.D. on 03/31/2017 9:56 AM. Narrative ABDOMEN AP ONLY CLINICAL HISTORY: OG tube COMPARISON: None FINDINGS: Dr. Madisyn Dotson M.D. has personally reviewed these images and formulated the interpretations and opinions expressed in this report. Supine abdominal radiograph. Gastric tube with tip overlying the distal stomach. There is mild colonic fecal retention. Visualized bowel gas pattern is nonobstructive. Procedure Note Interface, Radiant Results - 03/31/2017 1:44 PM [employer] ABDOMEN AP ONLY CLINICAL HISTORY: OG tube COMPARISON: None FINDINGS: Dr. Madisyn Dotson M.D. has personally reviewed these images and formulated the interpretations and opinions expressed in this report. Supine abdominal radiograph. Gastric tube with tip overlying the distal stomach. There is mild colonic fecal retention. Visualized bowel gas pattern is nonobstructive. IMPRESSION 1. Gastric tube with tip overlying the distal stomach. Approved by Art Crews M.D. on 03/31/2017 1:40 PM By my electronic signature, I attest that I have personally reviewed the images for this examination and formulated the interpretations and opinions expressed in this report Finalized by Madisyn Dotson M.D. on 03/31/2017 1:41 PM. Dictated by Art Crews M.D. on 03/31/2017 9:56 AM. * CHEST SINGLE VIEW (03/31/2017 3:07 AM) Specimen Performing Laboratory [facility] RAD RESULTS Impressions Tubes and catheters as described. Mild left basilar atelectasis. Finalized by Jason Quiroz M.D. on 03/31/2017 8:27 AM. Dictated by Jason Quiroz M.D. on 03/31/2017 8:26 AM. Narrative Single view of the chest Clinical history: Atelectasis. Findings: Comparison chest film: None available. ET tube is been placed with the tip well above the erin. Right IJ line has been placed with the tip overlying the right atrium. NG tube has been placed coursing beneath the diaphragm, the tip of which is not included in the field-of -view. The heart and pulmonary vasculature are within normal limits. There is mild left basilar atelectasis. No pleural effusion or pneumothorax is identified. Procedure Note Interface, Radiant Results - 03/31/2017 8:30 AM [employer] HE[employer]GER Single view of the chest Clinical history: Atelectasis. Findings: Comparison chest film: None available. ET tube is been placed with the tip well above the erin. Right IJ line has been placed with the tip overlying the right atrium. NG tube has been placed coursing beneath the diaphragm, the tip of which is not included in the field-of -view. The heart and pulmonary vasculature are within normal limits. There is mild left basilar atelectasis. No pleural effusion or pneumothorax is identified. IMPRESSION Tubes and catheters as described. Mild left basilar atelectasis. Finalized by Jason Quiroz M.D. on 03/31/2017 8:27 AM. Dictated by Jason Quiroz M.D. on 03/31/2017 8:26 AM. * URINALYSIS, MICROSCOPIC (03/31/2017 3:05 AM) Component Value Ref Range WBCs,UA PACKED 0 - 2 /HPF RBCs,UA 20-50 0 - 3 /HPF Bacteria,UA MODERATE (A) NEG-NEG WBC Clumps PRESENT Squamous Epithelial Cells 0-2 0 - 5 Specimen Performing Laboratory Urine [facility] [address] [place] [address] * URINALYSIS DIPSTICK (03/31/2017 3:05 AM) Component Value Ref Range Color,UA YELLOW Turbidity,UA 2+ (A) CLEAR-CLEAR Specific [place]-Urine 1.014 1.003 - 1.035 pH,UA 5.0 5.0 - 8.0 Protein,UA 2+ (A) NEG-NEG Glucose,UA 2+ (A) NEG-NEG Ketones,UA NEG NEG-NEG Bilirubin,UA NEG NEG-NEG Blood,UA 2+ (A) NEG-NEG Urobilinogen,UA NORMAL NORM-NORMAL Nitrite,UA NEG NEG-NEG Leukocytes,UA 3+ (A) NEG-NEG Urine Ascorbic Acid, UA NEG NEG-NEG Specimen Performing Laboratory [facility] [address] [place] [id number] * CULTURE-URINE W/SENSITIVITY (03/31/2017 3:05 AM) Component Value Ref Range Battery Name URINE CULTURE Specimen Description URINE,INDWELLING CATH Special Requests NONE Culture NO GROWTH Report Status FINAL 04/01/2017 Specimen Performing Laboratory Urine - [place] [facility] [address] [place] [id number] * BETA HYDROXYBUTYRATE (KETONES) (03/31/2017 2:45 AM) Component Value Ref Range Beta Hydroxybutyrate 0.8 (H) <0.3 MMOL/L Comment: Beta hydroxybutyrate (BOHB) is the most abundant ketone (78%), followed by acetoacetate (20%) and acetone (2%). Measurement BOHB is recommended to assess ketones in DKA. Expected BOHB Results for DKA: Initial presentation high/increasing During treatment decreasing Resolved decreasing/normal Specimen Performing Laboratory [facility] [address] [place] [id number] * LACTIC ACID (BG - RAPID LACTATE) (03/31/2017 2:45 AM) Component Value Ref Range Lactic Acid,BG 1.9 0.5 - 2.0 MMOL/L Specimen Performing Laboratory Blood [facility] [address] [place] [id number] * PTT (APTT) (03/31/2017 2:45 AM) Component Value Ref Range APTT 19.9 (L) 21.0 - 39.0 SEC Specimen Performing Laboratory [facility] [address] [place] [id number] * PROTIME INR (PT) (03/31/2017 2:45 AM) Component Value Ref Range INR 0.9 0.8 - 1.2 Specimen Performing Laboratory [facility] [address] [place] [address] * HEMOGLOBIN A1C (03/31/2017 2:45 AM) Component Value Ref Range Hemoglobin A1C 14.7 (H) 4.0 - 6.0 % Comment: The ADA recommends that most patients with type 1 and type 2 diabetes maintain an A1c level <7%. Specimen Performing Laboratory [facility] [address] [place] [address] * CT HEAD EXTERNAL IMAGING (03/30/2017 12:15 AM) Only the most recent of 2 results within the time period is included. Narrative This order has been auto finalized and does not contain a result. * GENERAL RAD CHEST EXTERNAL IMAGING (03/30/2017) Narrative This order has been auto finalized and does not contain a result. from Last 3 Months
--- OUTSIDE RECORDS SUMMARY | 2017-04-06 01:41 | XMS REPORT | Encounter Summary ---
Author Author [facility] Address Unknown Phone Unavailable Care Team Providers Care Third Grade Teacher Name Role Phone PCP Unavailable Reason for Visit * Auth/Cert Status Reason Specialty Diagnoses / Referred By Referred To Procedures Contact Contact Diagnoses intractable seizures Seizure (HCC) Encounter Details Date Type Department Care Team Description 03/31/2017 [facility] Dago Beyer MD Stage 5 chronic kidney - Encounter [facility] [facility] [address] disease on chronic 04/05/2017 [place] [address] MS 1034 dialysis (HCC) [phone] [place] [address] [phone] Rosa Isela Gonzales MD [address] [place] [address] W Lance donnelly MD [address] [facility] [address] [place] [address] [phone] Social History Tobacco Use Types Packs/Day Years Used Date Never Smoker Smokeless Tobacco: Never Used Sex Assigned at Date Recorded Not on file as of this encounter Last Filed Vital Signs Vital Sign Reading Time Taken Blood Pressure 136/81 04/05/2017 6:45 PM BAND SAW OPERATOR Pulse 74 04/05/2017 6:45 PM BAND SAW OPERATOR Temperature 36.7 C (98 F) 04/05/2017 6:45 PM BAND SAW OPERATOR Respiratory Rate - - Oxygen Saturation 100% 04/05/2017 6:45 PM BAND SAW OPERATOR Inhaled Oxygen - - Concentration Weight 73.8 kg (162 lb 11.2 oz) 04/05/2017 1:43 PM BAND SAW OPERATOR Height 172.7 cm (5' 8") 04/04/2017 4:59 PM BAND SAW OPERATOR Body Mass Index 24.74 04/05/2017 1:43 PM BAND SAW OPERATOR in this encounter Functional Status Functional Status Response Date of Assessment Does the patient have a hearing impairment: No 04/03/2017 as of this encounter Medications at Time of Discharge Medication Sig. Disp. Refills Start Date End Date amLODIPine (NORVASC) 10 Take 10 mg by mouth mg tablet daily. ascorbic acid (VITAMIN C) Take 500 mg by mouth 500 mg tablet daily. ferrous sulfate (FEOSOL, Take 325 mg by mouth FEROSUL) 325 mg (65 mg daily. Take on an empty iron) tablet stomach at least 1 hour before or 2 hours after food. insulin glargine (LANTUS Inject 10 Units under the SOLOSTAR, BASAGLAR) 100 skin at bedtime daily. unit/mL (3 mL) injection PEN levETIRAcetam (KEPPRA) Take 1 tablet by mouth 04/06/2017 750 mg tablet daily. Give at 1200 on non-HD days (//Wed/Wed). Then on HD days (//) give immediately after dialysis metoprolol XL (TOPROL XL) Take 100 mg by mouth 100 mg extended release daily. tablet as of this encounter Progress Notes * Aaron Westbrook - 04/05/2017 4:38 PM BAND SAW OPERATOR Formatting of this note may be different from the original. Renal Progress Note Antoine Sung Admission Date: 03/31/2017 Assessment and Plan Active Problems: Stage 5 chronic kidney disease on chronic dialysis ([facility]) Type 2 diabetes mellitus with hyperglycemia, with long-term current use of insulin ([facility]) HTN (hypertension) PVD (peripheral vascular disease) ([facility]) Diabetic Charcot foot ([facility]) Anemia in chronic kidney disease, on chronic dialysis ([facility]) Antoine Sung is a 51 y.o. male ESRD on HD - ESRD MWF 4 hrs at [facility], [place] - R tunneled catheter. - EDW 72 Kg. Status Epilepticus - on Keppra HTN, volume dependent -resolved Plan: -HD today per regular schedule -no acute issues, pt reached dry weight -HTN resolved -renal HD diet Aaron Westbrook Pager [phone] Subjective HPI: Antoine Sung is a 51 y.o. male doing well, primary team planning for discharge. Remains seizure free since admit, blood pressure controlled. Medications MEDS amLODIPine 10 mg Oral QDAY docusate 100 mg Oral BID heparin (porcine) 5,000 Units Subcutaneous Q8H insulin aspart 0-14 Units Subcutaneous 5 X Day insulin glargine 10 Units Subcutaneous QDAY levETIRAcetam 250 mg Oral ONCE [START ON 04/06/2017] levETIRAcetam 750 mg Oral QDAY metoprolol XL 100 mg Oral QDAY milk of magnesia (CONC) 10 mL Oral QDAY senna/docusate 1 tablet Oral BID IV MEDS Prn acetaminophen Q6H PRN 1,000 mg at 04/04/177, ondansetron ( ZOFRAN) IV Q6H PRN 4 mg at 04/01/172008, sodium chloride 0.9% (NS) IP Dialysis PRN, sodium chloride 0.9% (NS) IP Dialysis PRN Stopped at 04/05/17 1327, sodium chloride 0.9% (NS) IP Dialysis PRN Physical Exam Vital Signs: Last Filed In 24 Hours Vital Signs: 24 Hour Range BP: 101/63 (04/05 1630) Temp: 36.7 C (98 F) (04/05 1343) Pulse: 77 (04/05 1630) Respirations: 15 PER MINUTE (04/05 1630) SpO2: 98 % (04/05 1630) O2 Delivery: None (Room Air) (04/05 163) SpO2 Pulse: 77 (04/05 1630) Height: 172.7 cm (68") (04/04 1659) BP: (88-140)/(57-86) Temp: [36.6 C (97.9 F)-37.2 C (98.9 F)] Pulse: [65-77] Respirations: [15 PER MINUTE-18 PER MINUTE] SpO2: [96 %-100 %] O2 Delivery: None (Room Air) Intensity Pain Scale 0-10 (Pain 1): 0 (04/05/17 1343) Vitals: 04/04/17 1659 04/05/17 1328 04/05/17 1343 Weight: 73.4 kg (161 lb 13.1 oz) 73.8 kg (162 lb 11.2 oz) 73.8 kg (162 lb 11.2 oz) Constitutional: Appears well-developed but somnolent. No distress. Head: Normocephalic and atraumatic. Mouth/Throat: No oropharyngeal exudate. Eyes: No scleral icterus. Neck: No JVD present. No tracheal deviation present. Cardiovascular: Normal rate, regular rhythm, normal heart sounds and intact distal pulses. No murmur. Pulmonary/Chest: Effort normal. No wheezes and no rales. Abdominal: Soft. Bowel sounds are normal. No distension. There is no tenderness or rebound. Musculoskeletal: No edema. Neurological: Alert. Answers a few questions. Skin: Skin is warm and dry. No rash noted. Labs Recent Labs 04/03/17 0330 04/04/17 0346 04/05/17 0509 NA 134* 133* 131* K 3.6 3.7 3.6 CL 99 98 98 CO2 25 27 23 GAP 10 8 10 BUN 13 19 29* CR 4.04* 6.06* 7.34* GLU 183* 152* 152* CA 8.2* 8.0* 7.8* MG 2.1 2.3 2.3 PO4 3.2 3.7 4.0 Recent Labs 04/03/17 0330 04/04/17 0346 04/05/17 0509 WBC 8.1 7.6 8.5 HGB 10.3* 9.8* 10.2* HCT 31.0* 29.6* 29.7* PLTCT 245 269 287 Estimated Creatinine Clearance: 12.4 mL/min (based on Cr of 7.34). Vitals: 04/04/17 1659 04/05/17 1328 04/05/17 1343 Weight: 73.4 kg (161 lb 13.1 oz) 73.8 kg (162 lb 11.2 oz) 73.8 kg (162 lb 11.2 oz) No results for input(s): PHART, PO2ART in the last 72 hours. Invalid input(s): PC02A Aaron Short Pager [phone] Associated attestation - Lola Lozano DO - 04/05/2017 5:16 PM BAND SAW OPERATOR Formatting of this note may be different from the original. ATTESTATION I saw Mr. Sung on dialysis. He was tolerating his treatment without issue. His blood pressure was normal. Will plan for next HD on Wednesday unless needed sooner. I personally performed the antunez portions of the E/M visit, discussed case with the fellow and concur with fellow documentation of history, physical exam, assessment, and treatment plan unless otherwise noted. Staff name: Lola Lozano DO * Nehal Liu, PT - 04/05/2017 1:38 PM BAND SAW OPERATOR PHYSICAL THERAPY NOTE Patient off the floor in dialysis at this time. PT will continue to follow for skilled therapy intervention. Therapist: Nehal Liu PT, DPT [id number] Date: 04/05/2017 * Kamille Stewart, OT - 04/05/2017 8:31 AM BAND SAW OPERATOR Formatting of this note may be different from the original. OCCUPATIONAL THERAPY PROGRESS NOTE Patient Name: [facility] Room/Bed: [place] [address] Admitting Diagnosis: intractable seizures Seizure (HCC) Past Medical History: Diagnosis Date Anemia Charcot foot due to diabetes mellitus (HCC) DM (diabetes mellitus) (HCC) HTN (hypertension) PVD (peripheral vascular disease) (HCC) Renal failure Mobility Progressive Mobility Level: Walk in room Distance Walked (feet): 50 ft Level of Assistance: Assist X1 Assistive Device: None Time Tolerated: 11-30 minutes Activity Limited By: Fatigue;Weakness Subjective Pertinent Dx per Physician: 51 y.o. male with PMH of DM, renal failure on dialysis, and anemia who presents with seizure to OSH. Transferred to [facility] on for possible status. Precautions: Falls;Seizure Precautions Pain / Complaints: Patient agrees to participate in therapy;Patient has no c/o pain Comments: Pt left seated in bedsdie chair at end of session, all needs within reach and bed alarm in place. Objective Psychosocial Status: Willing and Cooperative to Participate Persons Present: None Home Living Type of Home: House Home Layout: Performs ADL'S on One Level Bathroom Shower / Tub: Tub/Shower Unit Bathroom Toilet: Standard Bathroom Equipment: (None) Comment: 4 stairs to enter home. Prior Function Level Of [place]: Independent with ADLs and functional transfers;Needed assistance with homemaking Lives With: Family (Son & Daughter in law) Receives Help From: Family Vocational: On Disability Vision Current Vision: No Visual Deficits;Does Not Wear Glasses ADL's Where Assessed: Standing at Sink;In Bathroom Grooming Assist: Minimal Assist Grooming Deficits: Steadying;Supervision/Safety;Wash/Dry Hands Toileting Assist: Minimal Assist Toileting Deficits: Steadying;Supervision/Safety;Grab Bar Use Functional Transfer Assist: Moderate Assist Functional Transfer Deficits: Steadying;Supervision/Safety Comment: Supine to sit with minimum assist. Initial stand requires moderate assist for steadying. Pt presents with balance deficits and slowed gait. Pt completes ADLs with minimum assist due to safety concerns and requiring consistent steadying assist. Activity Tolerance Endurance: 3/5 Tolerates 25-30 Minutes Exercise w/Multiple Rests Sitting Balance: 4/5 Moves/Returns Trunkal Midpoint 1-2 Inches in Multiple Planes Cognition Overall Cognitive Status: WFL to Adequately Complete Self Care Tasks Safely Comprehension: WFL to Adequately Complete Self Care Tasks Safely Expression: WFL Adequate to Meet Daily Needs Attention: Awake/Alert UE AROM Overall BUE AROM WNL: Yes Grasp: Bilateral Grasp Functional for Activity UE Strength / Tone Overall Strength / Tone: WFL Able to Perform ADL Tasks Education Persons Educated: Patient Barriers To Learning: None Noted Teaching Methods: Verbal Instruction;Demonstration Patient Response: Verbalized and Demo Understanding Topics: Adaptive Devices for ADLs;ADL Compensatory Techniques Goal Formulation: With Patient Comments: Slowed speech and trouble word finding. Assessment Assessment: Decreased ADL Status;Decreased High-Level ADLs;Decreased Self-Care Trans;Decreased Endurance;Decreased Cognition Prognosis: Good;w/Cont OT s/p Acute Discharge AM-PAC 6 Clicks Daily Activity Inpatient Putting on and taking off regular lower body clothes?: A Little Bathing (Including washing, rinsing, drying): A Little Toileting, which includes using toilet, bedpan, or urinal: A Little Putting on and taking off regular upper body clothing: None Taking care of personal grooming such as brushing teeth: A Little Eating meals?: None Daily Activity Raw Score: 20 Standardized (t-scale) score: 42.03 CMS 0-100% Score: 38.32 CMS G Code Modifier: CJ Plan Treatment Interventions: ADL Retraining;Functional Transfer Training;Endurance Training Progress: Slow Progress OT Frequency: 5x/week Next Session: Continue progressing ADLs and functional mobility. ADL Goals Patient Will Perform All ADL's: w/ Modified [place] Functional Transfer Goals Pt Will Perform All Functional Transfers: Modified Independent OT Discharge Recommendations OT Discharge Recommendations: Inpatient Setting Equipment Recommendations: Too early to be determined Additional Information: Would reccomend HR INTERN consult to address speech and cognitive impairments at next level of care. Therapist: Kamille Stewart, OTR/L [id number] Date: 04/05/2017 * Renuka Glaser, OT - 04/04/2017 1:40 PM BAND SAW OPERATOR Formatting of this note may be different from the original. OCCUPATIONAL THERAPY PROGRESS NOTE Patient Name: Antoine Sung Room/Bed: LS1860/01 Admitting Diagnosis: intractable seizures Seizure (HCC) Past Medical History: Diagnosis Date Anemia Charcot foot due to diabetes mellitus (HCC) DM (diabetes mellitus) (HCC) HTN (hypertension) PVD (peripheral vascular disease) (HCC) Renal failure Subjective Precautions: Falls;Seizure Precautions Pain / Complaints: Patient has no c/o pain Objective Psychosocial Status: Willing and Cooperative to Participate Persons Present: None ADL's Where Assessed: Chair Equipment Provided: Bible Reader;Sock Aid LE Dressing Assist: Minimal Assist LE Dressing Deficits: Steadying Comment: PT EDUC IN USE OF ABOVE ADAPT DEVICES FOR LE ADL TASKS. PT DEMO GOOD UNDERSTANDING IN USE. DEVICES LEFT W/ PT Activity Tolerance Endurance: 4/5 Tolerates 30+ Minutes Exercise W/O Fatigue Sitting Balance: 5/5 Moves/Returns Trunkal Midpoint in All Planes > 2 Inches Cognition Overall Cognitive Status: WFL to Adequately Complete Self Care Tasks Safely Comprehension: WFL to Adequately Complete Self Care Tasks Safely Expression: WFL Adequate to Meet Daily Needs Education Persons Educated: Patient Barriers To Learning: None Noted Teaching Methods: Verbal Instruction;Demonstration Patient Response: Verbalized and Demo Understanding Topics: Adaptive Devices for ADLs;ADL Compensatory Techniques Goal Formulation: With Patient AM-PAC 6 Clicks Daily Activity Inpatient Putting on and taking off regular lower body clothes?: A Little Bathing (Including washing, rinsing, drying): A Little Toileting, which includes using toilet, bedpan, or urinal: A Little Putting on and taking off regular upper body clothing: None Taking care of personal grooming such as brushing teeth: None Eating meals?: None Daily Activity Raw Score: 21 Standardized (t-scale) score: 44.27 CMS 0-100% Score: 32.79 CMS G Code Modifier: CJ ADL Goals Patient Will Perform All ADL's: w/ Modified [place] Functional Transfer Goals Pt Will Perform All Functional Transfers: Modified Independent OT Discharge Recommendations OT Discharge Recommendations: Inpatient Setting Equipment Recommendations: Too early to be determined Therapist: KAREN Edmond Date: 04/04/2017 * Shania Alexis PT - 04/04/2017 9:19 AM BAND SAW OPERATOR PHYSICAL THERAPY PROGRESS NOTE MOBILITY: Progressive Mobility Level: Walk in hallway Distance Walked (feet): 200 ft Level of Assistance: Assist X1 Assistive Device: None Time Tolerated: 11-30 minutes Activity Limited By: Fatigue;Dizziness SUBJECTIVE: Subjective Significant hospital events: Antoine Sung is a 51 y.o. male with PMH of DM, renal failure on dialysis, and anemia who presents with seizure to OS. Transferred to [facility] on 03/31 for possible status. Mental / Cognitive Status: Alert;Cooperative;Follows Commands Persons Present: Nursing Staff Pain: Patient has no complaint of pain Pain Interventions: Patient agrees to participate in therapy;Patient assisted into position of comfort Precautions: Seizure Precautions Ambulation Assist: Independent Mobility in Community without Device Patient Owned Equipment: None Home Situation: Lives with Family (Son and [id number]; They work alternate shifts) Type of Home: House Entry Stairs: 3-5 Stairs;No Rail (4) In-Home Stairs: Able to Live on One Level BED MOBILITY/TRANSFERS: Bed Mobility/Transfers Bed Mobility: Supine to Sit: Standby Assist Transfer Type: Sit to Stand Transfer: Assistance Level: From;Bed;To;Bed Side Chair;Minimal Assist Transfer: Assistive Device: None Transfers: Type Of Assistance: For Safety Considerations End Of Activity Status: Up in Chair;Nursing Notified;Instructed Patient to Request Assist with Mobility;Instructed Patient to Use Call Light (TABS alarm activated) BALANCE: Balance Sitting Balance: Static Sitting Balance;Standby Assist Standing Balance: Static Standing Balance;Dynamic Standing Balance;No UE support ;Standby Assist;Minimal Assist (contact guard assist) GAIT: Gait Gait Distance: 200 feet Gait: Assistance Level: Minimal Assist Gait: Assistive Device: None Gait: Descriptors: Pace: Slow;Pathway deviations;Swing-Through Gait;Loss of balance Comments: Patient had one loss of balance episode that required minimal assist to correct. Patient has difficulty with turns, loses his balance but not to the point where he needs physical assist to correct. Mostly contact guard assist Activity Limited By: Complaint of Dizziness;Complaint of Fatigue EDUCATION: Education Persons Educated: Patient Patient Barriers To Learning: None Noted Teaching Methods: Verbal Instruction;Demonstration Patient Response: Verbalized Understanding;Return Demonstration;More Instruction Required Topics: Plan/Goals of PT Interventions;Mobility Progression;Safety Awareness;Up with Assist Only;Importance of Increasing Activity;Therapy Schedule ASSESSMENT/PROGRESS: Assessment/Progress Impaired Mobility Due To: Impaired Balance;Safety Concerns;Decreased Activity Tolerance Assessment/Progress: Expect Good Progress AM-PAC 6 Clicks Basic Mobility Inpatient Turning from your back to your side while in a flat bed without using bed rails : A Little Moving from lying on your back to sitting on the side of a flatbed without using bedrails : A Little Moving to and from a bed to a chair (including a wheelchair): A Little Standing up from a chair using your arms (e.g. wheelchair, or bedside chair): A Little To walk in hospital room: A Little Climbing 3-5 steps with a railing: A Lot Raw Score: 17 Standardized (T-scale) Score: 39.67 Basic Mobility CMS 0-100%: 43.83 CMS G Code Modifier for Basic Mobility: CK GOALS: Goals Goal Formulation: With Patient Time For Goal Achievement: 7 days Pt Will Go Supine To/From Sit: w/ Stand By Assist Pt Will Transfer Sit to Stand: w/ Verbal Cues Required/Provided Pt Will Ambulate: Greater than 200 Feet, w/ Stand By Assist PLAN: Plan Treatment Interventions: Mobility Training;Balance Activities;Endurance Training Plan Frequency: 5-7 Days per Week Comments: Continue to work on dynamic balance tasks during ambulation RECOMMENDATIONS: PT Discharge Recommendations: Inpatient Setting Equipment Recommendations: Too early to be determined Therapist: Shania Alexis PT Date: 04/04/2017 * Dinesh Walters MD - 04/04/2017 5:54 AM BAND SAW OPERATOR Formatting of this note may be different from the original. Neurology Progress Note Name: Antoine Sung Today's Date: 04/04/2017 Admission Date: 03/31/2017 LOS: 4 days Active Problems: Stage 5 chronic kidney disease on chronic dialysis ([facility]) Type 2 diabetes mellitus with hyperglycemia, with long-term current use of insulin ([facility]) HTN (hypertension) PVD (peripheral vascular disease) ([facility]) Diabetic Charcot foot ([facility]) Anemia in chronic kidney disease, on chronic dialysis ([facility]) 51 yo M with PMH of uncontrolled DM2 and HTN, ESRD s/p HD MWF, admitted for possible seizure, hyperglycemic hypoerosmolar non-ketotic coma, acute resp failure- extubated 03/31/17. On exam, a&o x3, following all commands, weak R hand sharepoint manager and R HF 4, R ADF 4+, hyporeflexic, L charcot foot. Possible seizures Hyperglycemic hyperosomolar non-ketotic coma - patient with n&v x3 before presentation initially, BG on presentation was 691 along with R facial droop, difficulty swallowing, SBP 204, AG 17 on 03/29/17. At [facility] on 03/30, he was reported to have seizures, lactic acid 6.87, AG 23, BG 764. Transferred to 03/31/17 to for possible non-convulsive status. 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 colpocephaly with mildly decreased cerebral white matter volume. 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 Correlation with EEG suggested. Increased number of small gyri within the portions of frontal cortices w/o abn cortical thickening. MRA H&n normal. Plan: > Routine EEG as outpatient > neurochecks q4 > keppra 750mg bid > Endo following, appreciate recs > [facility] > lantus 10mg qhs ESRD on HD MWF- missed an HD day prior to admission. Anemia of CKD - last HD yesterday 03/31/17, getting another session today 04/02/17 - received gadolinium for MRI > monitor for nephrogenic systemic fibrosis > renal following, appreciate recs HTN- uncontrolled, vol dependent. - metoprolol 100 XL qD FEN: none, replace prn, renal diet PPx: heparin Dispo: likely d/c to rehab 04/05/17 Pt to be seen and discussed w/ Dr. Ocasio. Subjective No acute events overnight. This morning pt feels well - no complaints. Objective Vital Signs: Last Filed Vital Signs: 24 Hour Range BP: 131/78 (04/04 399) Temp: 36.7 C (98 F) (04/04 399) Pulse: 71 (04/04 399) Respirations: 16 PER MINUTE (04/03 1400) SpO2: 97 % (04/03 1999) O2 Delivery: None (Room Air) (04/03 1999) BP: (129-155)/(78-93) Temp: [36.6 C (97.8 F)-37.1 C (98.7 F)] Pulse: [71-82] Respirations: [16 PER MINUTE] SpO2: [97 %-100 %] O2 Delivery: None (Room Air) Intensity Pain Scale 0-10 (Pain 1): 8 (04/03/17 1428) Vitals: 04/02/17 0330 04/02/17 1004 04/02/17 1344 Weight: 79.2 kg (174 lb 9.7 oz) 80 kg (176 lb 5.9 oz) 73.8 kg (162 lb 11.2 oz) Intake/Output Summary: (Last 24 hours) Intake/Output Summary (Last 24 hours) at 04/04/17 0554 Last data filed at 04/03/17 1800 Gross per 24 hour Intake 512 ml Output 100 ml Net 412 ml Stool Occurrence: 1 Physical Exam Mental Status: A&Ox3 Speech: fluent without dysarthria CN: visual madsen intact, PERRLA, EOMI, R facial droop, hearing grossly intact, symmetric palate elevation, tongue midline Motor: normal tone/bulk, strength 4/5 in R HF, otherwise 5/5 Coordination: normal FNF, HTS Gait: deferred Extremities: L charcot foot Lab Review Pertinent labs reviewed Point of Care Testing (Last 24 hours) Glucose: (!) 152 (04/04/17 0346) POC Glucose (Download): (!) 164 (04/04/17 0402) Radiology and other Diagnostics Review: Pertinent radiology reviewed. Dinesh Walters MD Associated attestation - Rosa Isela Ocasio MD - 04/04/2017 12:18 PM BAND SAW OPERATOR Neurology Attending Attestation Patient has been seen and evaluated on attending rounds; antunez elements of the history and physical examination were repeated in order to confirm findings. Goals and plan of care was discussed with the patient. I have reviewed the above note and generally agree with the findings, plan and documentation. I spent a total of 30 minutes in patient care today, with 15 minutes spent counseling the patient and coordinating care. Interval Hx: no acute issues overnight, no further seizure activity since admission. Awaiting discharge tomorrow to [facility] rehab (likely 04/05/17), with set up for dialysis in [place]. Medically cleared for discharge when available. Rosa Isela Ocasio MD Vascular Neurology * Melina Palencia, PRAVEENA - 04/03/2017 10:45 AM BAND SAW OPERATOR Patient forgot to call RN prior to eating breakfast this am. This RN went to check on patient and FSBS, patient was longterm done with breakfast. FSBS 184 and correction factor administer. Re-educated patient that he MUST make sure to call staff before meals to ensure FSBS before eating. Verbalized understanding. * Dinesh Walters MD - 04/03/2017 3:26 AM BAND SAW OPERATOR Formatting of this note may be different from the original. Neurology Progress Note Name: Antoine Sung Today's Date: 04/03/2017 Admission Date: 03/31/2017 LOS: 3 days Active Problems: Stage 5 chronic kidney disease on chronic dialysis ([facility]) Type 2 diabetes mellitus with hyperglycemia, with long-term current use of insulin ([facility]) HTN (hypertension) PVD (peripheral vascular disease) ([facility]) Diabetic Charcot foot ([facility]) Anemia in chronic kidney disease, on chronic dialysis ([facility]) 51 yo M with PMH of uncontrolled DM2 and HTN, ESRD s/p HD MWF, admitted for possible seizure, hyperglycemic hypoerosmolar non-ketotic coma, acute resp failure- extubated 03/31/17. On exam, a&o x3, following all commands, weak R hand sharepoint manager and R HF 4, R ADF 4+, hyporeflexic, L charcot foot. Possible seizures Hyperglycemic hyperosomolar non-ketotic coma - patient with n&v x3 before presentation initially, BG on presentation was 691 along with R facial droop, difficulty swallowing, SBP 204, AG 17 on 03/29/17. At [facility] on 03/30, he was reported to have seizures, lactic acid 6.87, AG 23, BG 764. Transferred to 03/31/17 to for possible non-convulsive status. 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 colpocephaly with mildly decreased cerebral white matter volume. 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 Correlation with EEG suggested. Increased number of small gyri within the portions of frontal cortices w/o abn cortical thickening. MRA H&n normal. Plan: > Routine EEG as outpatient > neurochecks q4 > keppra 750mg bid > Endo following, appreciate recs > [facility] > lantus 10mg qhs ESRD on HD MWF- missed an HD day prior to admission. Anemia of CKD - last HD yesterday 03/31/17, getting another session today 04/02/17 - received gadolinium for MRI > monitor for nephrogenic systemic fibrosis > renal following, appreciate recs HTN- uncontrolled, vol dependent. - metoprolol 100 XL qD FEN: none, replace prn, renal diet Ppx: heparin Dispo: likely d/c to rehab 04/05/17 Pt to be seen and discussed w/ Dr. Ocasio. Subjective No acute events overnight. This morning pt has no complaints. Objective Vital Signs: Last Filed Vital Signs: 24 Hour Range BP: 165/87 (04/03) Temp: 37.1 C (98.7 F) (04/03) Pulse: 81 (04/03) Respirations: 15 PER MINUTE (04/02 1600) SpO2: 100 % (04/03) O2 Delivery: None (Room Air) (04/02 1999) SpO2 Pulse: 81 (04/03) BP: (107-192)/(68-90) Temp: [36.8 C (98.2 F)-37.3 C (99.2 F)] Pulse: [81-90] Respirations: [15 PER MINUTE-25 PER MINUTE] SpO2: [97 %-100 %] O2 Delivery: None (Room Air) Vitals: 04/02/17 0330 04/02/17 1004 04/02/17 1344 Weight: 79.2 kg (174 lb 9.7 oz) 80 kg (176 lb 5.9 oz) 73.8 kg (162 lb 11.2 oz) Intake/Output Summary: (Last 24 hours) Intake/Output Summary (Last 24 hours) at 04/03/17 0326 Last data filed at 04/03/17 0000 Gross per 24 hour Intake 580 ml Output 4755 ml Net -4175 ml Stool Occurrence: 1 Physical Exam Mental Status: A&Ox3 Speech: fluent without dysarthria CN: visual madsen intact, PERRLA, EOMI, R facial droop, hearing grossly intact, symmetric palate elevation, tongue midline Motor: normal tone/bulk, strength 4/5 in R HF, otherwise 5/5 Coordination: normal FNF, HTS Gait: deferred Extremities: L charcot foot Lab Review Pertinent labs reviewed Point of Care Testing (Last 24 hours) POC Glucose (Download): (!) 164 (04/03/17 0323) Radiology and other Diagnostics Review: Pertinent radiology reviewed. Dinesh Walters MD Associated attestation - Rosa Isela Ocasio MD - 04/03/2017 10:37 AM BAND SAW OPERATOR Neurology Attending Attestation Patient has been seen and evaluated on attending rounds; antunez elements of the history and physical examination were repeated in order to confirm findings. Goals and plan of care was discussed with the patient. I have reviewed the above note and generally agree with the findings, plan and documentation. I spent a total of 40 minutes in patient care today, with 25 minutes spent counseling the patient and coordinating care. Doing well this morning, no acute issues overnight. Tolerated HD yesterday. Endocrine on board, greatly appreciate their recs. No further seizure activity since admission. Discharge pending, likely Wednesday. All questions/concerns answered at bedside. Discussed [place] state driving laws regarding seizure activity, however pt notes he has not driven in several years. Rosa Isela Ocasio MD Vascular Neurology * Vania Narvaez, OT - 04/02/2017 3:00 PM BAND SAW OPERATOR OCCUPATIONAL THERAPY NO TREATMENT NOTE The patient was not seen due to: Patient not available. Patient in dialysis this AM. Patient having test this afternoon. Will follow and provide OT intervention as indicated. Attempted to see patient 2 times. Therapist: Vania Narvaez, OTR/L [id number] Date: 04/02/2017 * Shania Alexis, PT - 04/02/2017 1:45 PM BAND SAW OPERATOR PHYSICAL THERAPY NOTE Physical therapy treatment session attempted x 2. Patient off unit for dialysis in AM and early afternoon. PT will follow up as able and progress physical therapy intervention as indicated. Therapist: Shania Alexis, PT Date: 04/02/2017 * Sena Medina - 04/02/2017 9:46 AM BAND SAW OPERATOR Tech called to see if patient was available. Pt was taken to dialysis. Will try again later. * Aaron Westbrook - 04/02/2017 9:23 AM BAND SAW OPERATOR Formatting of this note may be different from the original. Renal Progress Note Antoine Sung Admission Date: 03/31/2017 Assessment and Plan Active Problems: Stage 5 chronic kidney disease on chronic dialysis ([facility]) Type 2 diabetes mellitus with hyperglycemia, with long-term current use of insulin ([facility]) HTN (hypertension) PVD (peripheral vascular disease) ([facility]) Diabetic Charcot foot ([facility]) Anemia in chronic kidney disease, on chronic dialysis ([facility]) Antoine Sung is a 51 y.o. male ESRD on HD - ESRD MWF 4 hrs at [facility], [place] - R tunneled catheter. - EDW 72 Kg. Status Epilepticus - improved - Started on Keppra - MRI/MRA obtained - unfortunately exposing him to gadolinium which is associated with increased risk of NSF and he will need to be monitored for this. HTN, volume dependent Plan: -HD today per regular schedule -HTN is volume dependent due to excessive IVF given to oliguric patient -will attempt to remove 4 L today Aaron Westbrook Pager [phone] Subjective HPI: Antoine Sung is a 51 y.o. male alert, talkative today, descibed events leading up to hospitalization and seizure. Medications MEDS anticoagulant sodium citrate 1-5 mL Intra-catheter ONCE docusate 100 mg Oral BID heparin (porcine) 5,000 Units Subcutaneous Q8H insulin aspart 0-7 Units Subcutaneous ACHS insulin glargine 10 Units Subcutaneous QDAY levETIRAcetam 500 mg Oral QDAY metoprolol XL 100 mg Oral QDAY milk of magnesia (CONC) 10 mL Oral QDAY senna/docusate 1 tablet Oral BID IV MEDS Prn acetaminophen Q4H PRN 1,000 mg at 04/02/178, ondansetron ( ZOFRAN) IV Q6H PRN 4 mg at 04/01/172008, sodium chloride 0.9% (NS) IP Dialysis PRN, sodium chloride 0.9% (NS) IP Dialysis PRN, sodium chloride 0.9% (NS) IP Dialysis PRN Physical Exam Vital Signs: Last Filed In 24 Hours Vital Signs: 24 Hour Range BP: 183/82 (04/02 329) Temp: 36.9 C (98.5 F) (04/02 329) Pulse: 88 (04/02 799) Respirations: 20 PER MINUTE (04/02 799) SpO2: 98 % (04/02 799) O2 Delivery: None (Room Air) (04/02 329) SpO2 Pulse: 88 (04/02 799) BP: (183-187)/(82-87) ABP: (141-162)/(57-74) Temp: [36.7 C (98.1 F)-37.1 C (98.8 F)] Pulse: [80-92] Respirations: [0 PER MINUTE-27 PER MINUTE] SpO2: [98 %-100 %] O2 Delivery: None (Room Air) Vitals: 03/31/17 0225 04/01/17 0512 04/02/170 Weight: 77.9 kg (171 lb 11.8 oz) (S) 76.1 kg (167 lb 12.3 oz) 79.2 kg (174 lb 9.7 oz) Constitutional: Appears well-developed but somnolent. No distress. Head: Normocephalic and atraumatic. Mouth/Throat: No oropharyngeal exudate. Eyes: No scleral icterus. Neck: No JVD present. No tracheal deviation present. Cardiovascular: Normal rate, regular rhythm, normal heart sounds and intact distal pulses. No murmur. Pulmonary/Chest: Effort normal. No wheezes and no rales. Abdominal: Soft. Bowel sounds are normal. No distension. There is no tenderness or rebound. Musculoskeletal: No edema. Neurological: Alert. Answers a few questions. Skin: Skin is warm and dry. No rash noted. Labs Recent Labs 03/31/175 03/31/17 0411 03/31/17 0554 03/31/17 0800 03/31/17 1000 03/31/17 1410 04/01/17 0400 04/02/17 0320 NA 128* 127* 129* 132* 133* 133* 135* 134* K 3.2* 3.3* 2.9* 3.6 3.3* 3.9 3.7 3.7 CL 95* 95* 100 102 104 103 105 100 CO2 21 18* 19* 20* 20* 18* 19* 22 GAP 12 14* 10 10 9 12 11 12 BUN 29* 30* 29* 31* 30* 30* 31* 18 CR 6.51* 6.34* 6.16* 6.38* 6.21* 6.29* 7.13* 4.53* GLU 230* 241* 244* 176* 91 199* 135* 280* CA 7.4* 7.5* 6.9* 7.5* 7.6* 7.4* 7.6* 7.6* ALBUMIN 3.4* 3.5 -- -- -- -- 2.7* -- MG 2.2 2.1 1.8 1.9 1.9 1.8 1.8 2.0 PO4 3.1 3.0 2.5 1.7* 1.6* -- 3.8 4.0 HGBA1C 14.7* -- -- -- -- -- -- -- Recent Labs 03/31/17 02403/31/17 0411 03/31/17 1000 03/31/17 1410 04/01/17 0400 04/02/17 0320 WBC 10.4 15.7* -- -- 11.6* 7.7 HGB 10.5* 10.4* -- -- 9.2* 8.9* HCT 31.3* 30.6* -- -- 27.1* 26.2* PLTCT 206 227 -- -- 207 212 INR 0.9 -- -- -- -- -- PTT 19.9* -- -- -- -- -- AST 16 16 -- -- 13 -- ALT 7 7 -- -- 5* -- ALKPHOS 128* 132* -- -- 95 -- TNI 0.10* -- 0.10* 0.11* 0.08* -- Estimated Creatinine Clearance: 21.6 mL/min (based on Cr of 4.53). Vitals: 03/31/17 0225 04/01/17 0512 04/02/17 0330 Weight: 77.9 kg (171 lb 11.8 oz) (S) 76.1 kg (167 lb 12.3 oz) 79.2 kg (174 lb 9.7 oz) Recent Labs 03/31/17 0327 03/31/17 0800 PHART 7.33* 7.36 PO2ART 147* 121* Aaron Short Pager [phone] Associated attestation - Lola Lozano DO - 04/02/2017 1:48 PM BAND SAW OPERATOR Formatting of this note may be different from the original. ATTESTATION I saw Mr. Sung on dialysis. He was pleasant and conversant. He said his headache was improving. He denied nausea, vomiting or feeling lightheaded. Will plan for next dialysis treatment Wednesday unless needed sooner. I personally performed the antunez portions of the E/M visit, discussed case with the fellow and concur with fellow documentation of history, physical exam, assessment, and treatment plan unless otherwise noted. Staff name: DO Glen Landaverde Jesse, DO - 04/02/2017 8:36 AM BAND SAW OPERATOR Formatting of this note may be different from the original. Endocrine Progress Note Admission Date: 03/31/2017 LOS: 2 days Active Problems: Stage 5 chronic kidney disease on chronic dialysis (HCC) Type 2 diabetes mellitus with hyperglycemia, with long-term current use of insulin ([facility]) HTN (hypertension) PVD (peripheral vascular disease) ([facility]) Diabetic Charcot foot (HCC) Anemia in chronic kidney disease, on chronic dialysis (HCC) Reason for consult: Type: Co-management w/signed orders Assessment: DM2 uncontrolled w/ hyperglycemia, with renal complications, ESRD with mcc use of insulin HTN CKD V, ESRD on HD Charcot Foot Recommendations: - DC recs, Lantus 10 units, [facility] ACHS - Patient expressed understanding, going to facility this afternoon. Thank you for this consult; we will continue to follow Patient was seen and discussed with Dr. Castillo No future appointments. Subjective Antoine Sung is a 51 y.o. male No acute events overnight . Patient seen in dialysis, no symptoms of hyperglycemia, feeling well and appetite improved. Estimated Creatinine Clearance: 21.6 mL/min (based on Cr of 4.53). ROS No Nausea, Vomiting , Abd pain , fevers Medications Scheduled Meds: anticoagulant sodium citrate solution 1-5 mL 1-5 mL Intra-catheter ONCE docusate (COLACE) capsule 100 mg 100 mg Oral BID heparin (porcine) PF syringe 5,000 Units 5,000 Units Subcutaneous Q8H insulin aspart (NOVOLOG FLEXPEN) injection PEN 0-7 Units 0-7 Units Subcutaneous ACHS insulin glargine (LANTUS SOLOSTAR, BASAGLAR) injection PEN 10 Units 10 Units Subcutaneous QDAY levETIRAcetam (KEPPRA) tablet 500 mg 500 mg Oral QDAY metoprolol XL (TOPROL XL) tablet 100 mg 100 mg Oral QDAY milk of magnesia (CONC) oral suspension 10 mL 10 mL Oral QDAY senna/docusate (SENOKOT-S) tablet 1 tablet 1 tablet Oral BID Continuous Infusions: PRN and Respiratory Meds:acetaminophen Q4H PRN, ondansetron (ZOFRAN) IV Q6H PRN , sodium chloride 0.9% (NS) IP Dialysis PRN, sodium chloride 0.9% (NS) IP Dialysis PRN, sodium chloride 0.9% (NS) IP Dialysis PRN Objective Vital Signs: Last Filed Vital Signs: 24 Hour Range BP: 183/82 (04/02 329) Temp: 36.9 C (98.5 F) (04/02 329) Pulse: 90 (04/02 329) Respirations: 19 PER MINUTE (04/02 329) SpO2: 100 % (04/02 329) O2 Delivery: None (Room Air) (04/02 329) SpO2 Pulse: 91 (04/024) BP: (183-187)/(82-87) ABP: (137-162)/(57-74) Temp: [36.7 C (98.1 F)-37.1 C (98.8 F)] Pulse: [80-92] Respirations: [0 PER MINUTE-32 PER MINUTE] SpO2: [98 %-100 %] O2 Delivery: None (Room Air) Vitals: 03/31/17 0225 04/01/17 0512 04/02/17 0330 Weight: 77.9 kg (171 lb 11.8 oz) (S) 76.1 kg (167 lb 12.3 oz) 79.2 kg (174 lb 9.7 oz) Intake/Output Summary: (Last 24 hours) Intake/Output Summary (Last 24 hours) at 04/02/17 0837 Last data filed at 04/02/17 0330 Gross per 24 hour Intake 120 ml Output 485 ml Net -365 ml Stool Occurrence: 0 Physical Exam General: Alert, cooperative, no distress, appears stated age Chest Wall: HD cath in place. Lungs: Breathing comfortably , in no distress Heart: Regular rate and rhythm Abdomen: Soft, non-tender. Extremities: Extremities atraumatic, no edema [employer] LIAISON: Nonfocal, moves all extremities Lab Review Lab Results Component Value Date/Time NA 134 (L) 04/02/2017 03:20 AM K 3.7 04/02/2017 03:20 AM CL 100 04/02/2017 03:20 AM CO2 22 04/02/2017 03:20 AM GAP 12 04/02/2017 03:20 AM Lab Results Component Value Date/Time WBC 7.7 04/02/2017 03:20 AM HGB 8.9 (L) 04/02/2017 03:20 AM PLTCT 212 04/02/2017 03:20 AM Point of Care Testing (Last 24 hours) Glucose: (!) 280 POC Glucose (Download): (!) 242 Glucose, POC Date/Time Value Ref Range Status 04/02/2017 0750 242 (H) 70 - 100 MG/DL Final 04/02/2017 0324 264 (H) 70 - 100 MG/DL Final 04/01/2017 2126 316 (H) 70 - 100 MG/DL Final 04/01/2017 1834 255 (H) 70 - 100 MG/DL Final 04/01/2017 1527 211 (H) 70 - 100 MG/DL Final 04/01/2017 0653 111 (H) 70 - 100 MG/DL Final 04/01/2017 0605 108 (H) 70 - 100 MG/DL Final 04/01/2017 0503 119 (H) 70 - 100 MG/DL Final Gussarah Hutchison Endocrine Resident Pager # [phone] 04/02/2017 Associated attestation - Yvonne Castillo MD - 04/02/2017 7:02 PM BAND SAW OPERATOR Formatting of this note may be different from the original. ATTESTATION I personally performed the antunez portions of the E/M visit, discussed case with resident and concur with resident documentation of history, physical exam, assessment, and treatment plan unless otherwise noted. Staff name: Yvonne Castillo MD Date: 04/02/2017 * Deja Nye MD - 04/02/2017 7:18 AM BAND SAW OPERATOR Formatting of this note may be different from the original. Neurology Progress Note Name: Antoine Sung Today's Date: 04/02/2017 Admission Date: 03/31/2017 LOS: 2 days Active Problems: Stage 5 chronic kidney disease on chronic dialysis ([facility]) Type 2 diabetes mellitus with hyperglycemia, with long-term current use of insulin ([facility]) HTN (hypertension) PVD (peripheral vascular disease) ([facility]) Diabetic Charcot foot ([facility]) Anemia in chronic kidney disease, on chronic dialysis ([facility]) 51 yo M with PMH of uncontrolled DM2 and HTN, ESRD s/p HD MWF, admitted for possible seizure, hyperglycemic hypoerosmolar non-ketotic coma, acute resp failure- extubated 03/31/17. On exam, a&o x3, following all commands, weak R hand sharepoint manager and R HF 4, R ADF 4+, hyporeflexic, L charcot foot. Possible seizures Hyperglycemic hyperosomolar non-ketotic coma - patient with n&v x3 before presentation initially, BG on presentation was 691 along with R facial droop, difficulty swallowing, SBP 204, AG 17 on 03/29/17. At [facility] on 03/30, he was reported to have seizures, lactic acid 6.87, AG 23, BG 764. Transferred to 03/31/17 to for possible non-convulsive status. 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 colpocephaly with mildly decreased cerebral white matter volume. 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 Correlation with EEG suggested. Increased number of small gyri within the portions of frontal cortices w/o abn cortical thickening. MRA H&n normal. Plan: > Routine EEG as outpatient > neurochecks q4 > keppra 750mg bid > Endo following, appreciate recs - s/p Insulin gtt- d/c'ed o/n 04/01/17 > [facility] > lantus 10mg qhs ESRD on HD MWF- missed an HD day prior to admission. Anemia of CKD - last HD yesterday 03/31/17, getting another session today 04/02/17 - received gadolinium for MRI > monitor for nephrogenic systemic fibrosis > renal following, appreciate recs HTN- uncontrolled, vol dependent. 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 Will reassess after HD today as Renal plans on removing 4L today FEN: none, replace prn, renal diet Ppx: heparin Dispo- maintain adm to neuro on wards. Awaiting rehab placement at [facility] [place] discharging 04/02/17 PM. Seen and discussed with Dr. Ocasio. Subjective Antoine Sung is a 51 y.o. male No o/n events. This morning, states that he is feeling weak all over. Does not have any headache, numbness other concerns today. Medications Scheduled Meds: anticoagulant sodium citrate solution 1-5 mL 1-5 mL Intra-catheter ONCE docusate (COLACE) capsule 100 mg 100 mg Oral BID heparin (porcine) PF syringe 5,000 Units 5,000 Units Subcutaneous Q8H insulin aspart (NOVOLOG FLEXPEN) injection PEN 0-7 Units 0-7 Units Subcutaneous 5 X Day levETIRAcetam (KEPPRA) tablet 500 mg 500 mg Oral QDAY metoprolol XL (TOPROL XL) tablet 100 mg 100 mg Oral QDAY milk of magnesia (CONC) oral suspension 10 mL 10 mL Oral QDAY senna/docusate (SENOKOT-S) tablet 1 tablet 1 tablet Oral BID Continuous Infusions: PRN and Respiratory Meds:acetaminophen Q4H PRN, ondansetron (ZOFRAN) IV Q6H PRN , sodium chloride 0.9% (NS) IP Dialysis PRN, sodium chloride 0.9% (NS) IP Dialysis PRN, sodium chloride 0.9% (NS) IP Dialysis PRN Objective Vital Signs: Last Filed Vital Signs: 24 Hour Range BP: 183/82 (04/02 329) Temp: 36.9 C (98.5 F) (04/02 329) Pulse: 90 (04/02 329) Respirations: 19 PER MINUTE (04/02 329) SpO2: 100 % (04/02 329) O2 Delivery: None (Room Air) (04/02 329) SpO2 Pulse: 91 (04/02 23) BP: (183-187)/(82-87) ABP: (94-162)/(46-74) Temp: [36.6 C (97.9 F)-37.1 C (98.8 F)] Pulse: [80-92] Respirations: [0 PER MINUTE-32 PER MINUTE] SpO2: [98 %-100 %] O2 Delivery: None (Room Air) Vitals: 03/31/17 0225 04/01/17 0512 04/02/17329 Weight: 77.9 kg (171 lb 11.8 oz) (S) 76.1 kg (167 lb 12.3 oz) 79.2 kg (174 lb 9.7 oz) Intake/Output Summary: (Last 24 hours) Intake/Output Summary (Last 24 hours) at 04/02/17717 Last data filed at 04/02/17329 Gross per 24 hour Intake 220 ml Output 1785 ml Net -1565 ml Stool Occurrence: 0 Physical Exam General- comfortable, watching TV MS- alert, oriented x3, conversational, pleasant Speech- normal CN- PERRL, EOMI, R facial droop, sensation normal V1-V3, hearing intact to conversation, tongue midline, equal shoulder shrug Motor- normal bulk, tone, no fasciculations. No pronator drift. Weak R side sharepoint manager strength. R HF 4, R ADF 4+, but 5/5 otherwise SILT, proprioception intact. L charcot foot Coordination - FTN intact Lab Review Pertinent labs reviewed Point of Care Testing (Last 24 hours) Glucose: (!) 280 (04/02/17 0320) POC Glucose (Download): (!) 264 (04/02/17 032) Radiology and other Diagnostics Review: Pertinent radiology reviewed. Deja Nye MD Neuro PGY2 [id number] Associated attestation - Rosa Isela Ocasio MD - 04/03/2017 10:30 AM BAND SAW OPERATOR Neurology Attending Attestation Patient has been seen and evaluated on attending rounds; antunez elements of the history and physical examination were repeated in order to confirm findings. Goals and plan of care was discussed with the patient. I have reviewed the above note and generally agree with the findings, plan and documentation. I spent a total of 40 minutes in patient care today, with 25 minutes spent counseling the patient and coordinating care. Pt seen and evaluated while receiving dialysis. No further seizure episodes, and we discussed this was likely secondary to his extreme hyperglycemia; it is unlikely he will have further seizures as long as his diabetes is managed appropriately; will continue Keppra 750 mg BID dosing for now and for 1-2 months following discharge, though there is little medical literature to support duration of AEDs in this clinical scenario. I do not suspect ongoing seizures or subclinical status and he does not require an inpatient EEG at this time. Plan for discharge when possible, likely Wednesday. Rosa Isela Ocasio MD Vascular Neurology * Shania Reyes, PRAVEENA - 04/02/2017 3:50 AM BAND SAW OPERATOR 0330 Pt's BP 183/82. Still answering questions appropriately and still c/o slight headache. Other VSS. Team paged. [phone] Walters. Orders for 1g Tylenol and 10mg PO Hydralazine. Avoiding IV meds at this time due to D/C today. * Shania Reyes, RN - 04/02/2017 1:04 AM BAND SAW OPERATOR 0024 Pt's BP 187/87. Alert and Oriented. Answers questions appropriately. VSS. C /o headache. Team paged. [phone] Text page sent. [phone] Walters and he is aware of all of the above. Orders to administer 50mg Metoprolol XL, as dose was canceled yesterday. Will continue to monitor. * Lola Lozano DO - 04/01/2017 10:08 PM BAND SAW OPERATOR Formatting of this note may be different from the original. Renal Progress Note Antoine Sung Admission Date: 03/31/2017 Assessment and Plan Active Problems: Stage 5 chronic kidney disease on chronic dialysis ([facility]) Type 2 diabetes mellitus with hyperglycemia, with long-term current use of insulin ([facility]) HTN (hypertension) PVD (peripheral vascular disease) ([facility]) Diabetic Charcot foot ([facility]) Anemia in chronic kidney disease, on chronic dialysis ([facility]) Antoine Sung is a 51 y.o. male ESRD on HD - Dialyzed this AM - Will attempt to get him back onto his regular dialysis schedule. - EDW 72 Kg. Status Epilepticus - improved - Started on Keppra - MRI/MRA obtained without contrast. Plan: - Dialyzed this AM. - Will get him back to his regular schedule - Avoid MRI contrast exposure. Lola Lozano DO Pager [phone] Subjective HPI: Antoine Sung is a 51 y.o. male was very quiet. He had HD early this AM and he did not recall this later in the morning. He knew he was in the hospital and knew he was in [place]. He denied dyspnea, nausuea, or lightheadedness. Medications MEDS docusate 100 mg Oral BID heparin (porcine) 5,000 Units Subcutaneous Q8H insulin aspart 0-7 Units Subcutaneous 5 X Day [START ON 04/02/2017] levETIRAcetam 500 mg Oral QDAY [START ON 04/02/2017] metoprolol XL 50 mg Oral QDAY milk of magnesia (CONC) 10 mL Oral QDAY senna/docusate 1 tablet Oral BID IV MEDS Prn acetaminophen Q4H PRN, ondansetron (ZOFRAN) IV Q6H PRN 4 mg at 2008 Physical Exam Vital Signs: Last Filed In 24 Hours Vital Signs: 24 Hour Range Temp: 36.7 C (98.1 F) (04/01 1600) Pulse: 80 (04/01 1800) Respirations: 11 PER MINUTE (04/01 1800) SpO2: 100 % (04/01 1800) O2 Delivery: None (Room Air) (04/01 1600) SpO2 Pulse: 80 (04/01 1800) ABP: (94-166)/(46-76) Temp: [36.6 C (97.9 F)-37.2 C (99 F)] Pulse: [80-92] Respirations: [0 PER MINUTE-32 PER MINUTE] SpO2: [97 %-100 %] O2 Delivery: None (Room Air) Vitals: 03/31/17 0225 04/01/17 0512 Weight: 77.9 kg (171 lb 11.8 oz) (S) 76.1 kg (167 lb 12.3 oz) Constitutional: Appears well-developed but somnolent. No distress. Head: Normocephalic and atraumatic. Mouth/Throat: No oropharyngeal exudate. Eyes: No scleral icterus. Neck: No JVD present. No tracheal deviation present. Cardiovascular: Normal rate, regular rhythm, normal heart sounds and intact distal pulses. No murmur. Pulmonary/Chest: Effort normal. No wheezes and no rales. Abdominal: Soft. Bowel sounds are normal. No distension. There is no tenderness or rebound. Musculoskeletal: No edema. Neurological: Alert. Answers a few questions. Skin: Skin is warm and dry. No rash noted. Labs Recent Labs 03/31/17 0245 03/31/17 0411 03/31/17 0554 03/31/17 0800 03/31/17 1000 03/31/17 1410 04/01/17 0400 NA 128* 127* 129* 132* 133* 133* 135* K 3.2* 3.3* 2.9* 3.6 3.3* 3.9 3.7 CL 95* 95* 100 102 104 103 105 CO2 21 18* 19* 20* 20* 18* 19* GAP 12 14* 10 10 9 12 11 BUN 29* 30* 29* 31* 30* 30* 31* CR 6.51* 6.34* 6.16* 6.38* 6.21* 6.29* 7.13* GLU 230* 241* 244* 176* 91 199* 135* CA 7.4* 7.5* 6.9* 7.5* 7.6* 7.4* 7.6* ALBUMIN 3.4* 3.5 -- -- -- -- 2.7* MG 2.2 2.1 1.8 1.9 1.9 1.8 1.8 PO4 3.1 3.0 2.5 1.7* 1.6* -- 3.8 HGBA1C 14.7* -- -- -- -- -- -- Recent Labs 03/31/17 0245 03/31/17 0411 03/31/17 1000 03/31/17 1410 04/01/17 0400 WBC 10.4 15.7* -- -- 11.6* HGB 10.5* 10.4* -- -- 9.2* HCT 31.3* 30.6* -- -- 27.1* PLTCT 206 227 -- -- 207 INR 0.9 -- -- -- -- PTT 19.9* -- -- -- -- AST 16 16 -- -- 13 ALT 7 7 -- -- 5* ALKPHOS 128* 132* -- -- 95 TNI 0.10* -- 0.10* 0.11* 0.08* Estimated Creatinine Clearance: 13.2 mL/min (based on Cr of 7.13). Vitals: 03/31/17 0225 04/01/17 0512 Weight: 77.9 kg (171 lb 11.8 oz) (S) 76.1 kg (167 lb 12.3 oz) Recent Labs 03/31/17 0327 03/31/17 0800 PHART 7.33* 7.36 PO2ART 147* 121* Lola Lozano DO Pager [phone] * Vania Narvaez, OT - 04/01/2017 3:05 PM BAND SAW OPERATOR Formatting of this note may be different from the original. OCCUPATIONAL THERAPY ASSESSMENT NOTE Patient Name: [facility] Room/Bed: [place] [address] Admitting Diagnosis: intractable seizures Seizure (HCC) Past Medical History: Diagnosis Date Anemia Charcot foot due to diabetes mellitus (HCC) DM (diabetes mellitus) (HCC) HTN (hypertension) PVD (peripheral vascular disease) (HCC) Renal failure Mobility Progressive Mobility Level: Active transfer to chair Level of Assistance: Assist X1 Assistive Device: Hand Held Time Tolerated: 11-30 minutes Activity Limited By: Dizziness;Fatigue Subjective Pertinent Dx per Physician: 51 y.o. male with PMH of DM, renal failure on dialysis, and anemia who presents with seizure to OSH. Transferred to [facility] on for possible status. Precautions: Falls;Seizure Precautions Pain / Complaints: Patient has no c/o pain Objective Psychosocial Status: Willing and Cooperative to Participate Persons Present: PT (at start of session) Home Living Type of Home: House Home Layout: Performs ADL'S on One Level Bathroom Shower / Tub: Tub/Shower Unit Bathroom Toilet: Standard Bathroom Equipment: None Prior Function Level Of [place]: Independent with ADLs and functional transfers;Needed assistance with homemaking Lives With: Family (Son & Daughter in law) Receives Help From: Family Vocational: On Disability ADL's Where Assessed: Chair Grooming Assist: Not Addressed Today (Patient declined) LE Dressing Assist: Maximum Assist LE Dressing Deficits: Don/Doff R Sock;Don/Doff L Sock Functional Transfer Assist: Minimal Assist x2 Functional Transfer Deficits: Stand Pivot to Chair Comment: Patient seated at EOB with PT upon OT arrival. Completed transfer to chair w/ PT then completed OT evaluation after PT left. Patient remained seated in chair at end of session, TABS alarm on. Activity Tolerance Endurance: 3/5 Tolerates 25-30 Minutes Exercise w/Multiple Rests Sitting Balance: Stand by assist Cognition Expression: Soft spoken Social Interaction: Flat Affect Attention: Awake/Alert UE AROM Overall BUE AROM WNL: Yes Grasp: Bilateral Grasp Functional for Activity UE Strength / Tone Overall Strength / Tone: WFL Able to Perform ADL Tasks Education Persons Educated: Patient Teaching Methods: Verbal Instruction Patient Response: Verbalized Understanding Topics: Role of OT, Goals for Therapy Goal Formulation: With Patient Assessment Assessment: Decreased ADL Status;Decreased Endurance;Decreased Self-Care Trans Prognosis: Good;w/Cont OT s/p Acute Discharge AM-PAC 6 Clicks Daily Activity Inpatient Putting on and taking off regular lower body clothes?: A Lot Bathing (Including washing, rinsing, drying): A Lot Toileting, which includes using toilet, bedpan, or urinal: A Lot Putting on and taking off regular upper body clothing: A Little Taking care of personal grooming such as brushing teeth: A Little Eating meals?: A Little Daily Activity Raw Score: 15 Standardized (t-scale) score: 34.69 CMS 0-100% Score: 56.46 CMS G Code Modifier: CK Plan Treatment Interventions: ADL Retraining;Functional Transfer Training;UE Strengthing/ROM;Endurance Training;Patient/Family Training;Compensatory Technique Education OT Frequency: 5x/week Plan for next visit: Progressive ADLs and functional mobility ADL Goals Patient Will Perform All ADL's: w/ Modified [place] Functional Transfer Goals Pt Will Perform All Functional Transfers: Modified Independent OT Discharge Recommendations OT Discharge Recommendations: Inpatient Setting Equipment Recommendations: Too early to be determined G-Codes: Self-care G8987 Current Status: 40-59% Impairment G8988 Goal Status: 1-19% Impairment Based on above evaluation and clinical judgment. Therapist: Vania Narvaez, OTR/L [id number] Date: 04/01/2017 * Corey Genao, PT - 04/01/2017 2:35 PM BAND SAW OPERATOR PHYSICAL THERAPY ASSESSMENT MOBILITY: Progressive Mobility Level: Active transfer to chair Level of Assistance: Assist X1 Assistive Device: Hand Held Activity Limited By: Dizziness;Fatigue SUBJECTIVE: Significant hospital events: Antoine Sung is a 51 y.o. male with PMH of DM, renal failure on dialysis, and anemia who presents with seizure to OSH. Transferred to [facility] on 03/31 for possible status. Mental / Cognitive Status: Lethargic;Cooperative; Slow to respond Persons Present: ([facility] Pain: Patient has no complaint of pain Precautions: Seizure Precautions Ambulation Assist: Independent Mobility in Community without Device Patient Owned Equipment: None Home Situation: Lives with Family--Son and [id number]; They work alternate shifts and can be at home to assist Type of Home: House Entry Stairs: 4, rail In-Home Stairs: Able to Live on One Level STRENGTH: Strength Position Assessed: Seated Bilat LE symmetrical with only noted weakness being in the hip flexors at 4/5 BED MOBILITY/TRANSFERS: Bed Mobility: Supine to Sit: Minimal Assist Transfer Type: Sit to Stand Transfer: Assistance Level: From;Bed;Minimal Assist Transfer: Assistive Device: Hand Hold Assist Transfers: Type Of Assistance: For Balance;For Safety Considerations Other Transfer Type: Stand Pivot Other Transfer: Assistance Level: Bed;To;Bed Side Chair;Minimal Assist;of 1st person;Standby Assist;of 2nd person Other Transfer: Assistive Device: Hand Hold Assist Other Transfer: Type Of Assistance: For Balance;For Safety Considerations End Of Activity Status: Up in Chair;Nursing Notified BALANCE: Sitting Balance: Static Sitting Balance;Standby Assist Standing Balance: 1 UE support;Minimal Assist GAIT: Gait Distance: 2 feet Gait: Assistance Level: Minimal Assist Gait: Assistive Device: Hand Hold Assist EDUCATION: Persons Educated: Patient Patient Barriers To Learning: None Noted Teaching Methods: Verbal Instruction;Demonstration Patient Response: Verbalized Understanding;Return Demonstration;More Instruction Required Topics: Plan/Goals of PT Interventions;Mobility Progression;Safety Awareness;Up with Assist Only;Importance of Increasing Activity;Therapy Schedule ASSESSMENT/PROGRESS: Impaired Mobility Due To: Impaired Balance;Safety Concerns;Decreased Activity Tolerance Impaired Strength Due To: ? Assessment/Progress: Expect Good Progress AM-PAC 6 Clicks Basic Mobility Inpatient Turning from your back to your side while in a flat bed without using bed rails : A Little Moving from lying on your back to sitting on the side of a flatbed without using bedrails : A Little Moving to and from a bed to a chair (including a wheelchair): Total Standing up from a chair using your arms (e.g. wheelchair, or bedside chair): A Little To walk in hospital room: Total Climbing 3-5 steps with a railing: Total Raw Score: 12 Standardized (T-scale) Score: 32.23 Basic Mobility CMS 0-100%: 61.94 CMS G Code Modifier for Basic Mobility: CL GOALS: Goal Formulation: With Patient Time For Goal Achievement: 7 days Pt Will Go Supine To/From Sit: w/ Stand By Assist Pt Will Transfer Sit to Stand: w/ Verbal Cues Required/Provided Pt Will Ambulate: Greater than 200 Feet, w/ Stand By Assist PLAN: Treatment Interventions: Mobility Training;Balance Activities;Endurance Training Plan Frequency: 5-7 Days per Week -Gait with hand hold assist; Expect he will be able to walk out of room by 04/02 -Assess progression and best dc plan as today was his 1st time up since admit RECOMMENDATIONS: PT Discharge Recommendations: Inpatient Setting; Expect he will progress well and quickly now that medically he has improved, but do not expect he will be ready for dc to home by 04/02 G-Codes: Mobility G8978 Current Status:60-79% Impairment G8979 Goal Status:20-39% Impairment Based on above evaluation and clinical judgment. Therapist: Corey Genao, PT Date: 04/01/2017 * Dwight Crowell MD - 04/01/2017 11:47 AM BAND SAW OPERATOR Formatting of this note may be different from the original. NEURO-ENT ICU Critical Care Progress Note Today's Date: 04/01/2017 Name: Antoine Sung Admission Date: 03/31/2017 LOS: 1 day ICU problem list: Patient Active Problem List Diagnosis Date Noted Stage 5 chronic kidney disease on chronic dialysis ([facility]) 03/31/2017 Type 2 diabetes mellitus with hyperglycemia, with long-term current use of insulin ([facility]) 03/31/2017 HTN (hypertension) 03/31/2017 PVD (peripheral vascular disease) ([facility]) 03/31/2017 Diabetic Charcot foot ([facility]) 03/31/2017 Anemia in chronic kidney disease, on chronic dialysis ([facility]) 03/31/2017 ATTESTATION Date of Service: 04/01/2017 I have seen, personally fully evaluated, and discussed patient with the NEURO- ENT ICU team. The patient is critically ill with seizures, hyperglycemic hyperosomolar non-ketotic coma, acute respiratory failure, mild metaoblic acidosis. I spent 30 minutes (excluding time spent performing or supervising any procedures) providing and personally directing critical care services including neuro monitoring and management, ventilator management, pain/sedation/ delirium mgt, hemodynamic monitoring and management, lab and radiology review, medication review and management, fluid and electrolyte management and coordination of care. 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 - appreciate endocrine assistance, patient states he is on levemir 10 u qhs ID: - rocephin for UTI x 3 days, may have provoked seizures in addition to HHNC Heme: - sq heparin GI: - swallow eval, advance as tolerated Sq heparin, pepcid Dispo: Stable for transfer to floor today Staff name: Dwight Crowell MD Date: 04/01/2017 __ Objective: Medications: Scheduled Meds: cefTRIAXone (ROCEPHIN) IVP 1 g 1 g Intravenous Q24H* docusate (COLACE) capsule 100 mg 100 mg Oral BID heparin (porcine) PF syringe 5,000 Units 5,000 Units Subcutaneous Q8H levETIRAcetam in NaCl (iso-os) (KEPPRA) IVPB (premade) 500 mg 100 mL 500 mg Intravenous QDAY metoprolol (LOPRESSOR) injection 5 mg 5 mg Intravenous Q6H* milk of magnesia (CONC) oral suspension 10 mL 10 mL Oral QDAY senna/docusate (SENOKOT-S) tablet 1 tablet 1 tablet Oral BID Continuous Infusions: Vital Signs: Last Filed Vital Signs: 24 Hour Range BP: 121/53 (03/310) ABP: 137/58 (04/01 899) Temp: 36.6 C (97.9 F) (04/01 819) Pulse: 89 (04/01 0800) Respirations: 32 PER MINUTE (04/01 899) SpO2: 99 % (04/01 899) O2 Delivery: None (Room Air) (04/01 819) Weight: 76.1 kg (167 lb 12.3 oz) (04/01 511) BP: (114-153)/(53-84) ABP: (94-170)/(46-77) Temp: [36.6 C (97.9 F)-37.8 C (100.1 F)] Pulse: [80-105] Respirations: [7 PER MINUTE-32 PER MINUTE] SpO2: [95 %-100 %] O2 Delivery: None (Room Air) Intensity Pain Scale 0-10 (Pain 1): (not recorded) Vitals: 03/31/175 04/01/17511 Weight: 77.9 kg (171 lb 11.8 oz) (S) 76.1 kg (167 lb 12.3 oz) Intake/Output Summary: (Last 24 hours) Intake/Output Summary (Last 24 hours) at 04/01/17 1147 Last data filed at 04/01/17 0815 Gross per 24 hour Intake 1251.29 ml Output 1404 ml Net -152.71 ml Artificial airway: Endotracheal Tube Ventilator/ Respiratory Therapy: Yes: Vent weaning trial: Extubate today Prophylaxis Review: Lines: No Urinary Catheter: No Antibiotic Usage: Yes; Infection present or suspected: /GI; UTI VTE: Pharmacological prophylaxis; SQ Heparin and Mechanical prophylaxis; Sequential compression device Lab Review: Pertinent labs reviewed Point of Care Testing: (Last 24 hours): Glucose: (!) 135 (04/01/17 0400) POC Glucose (Download): (!) 111 (04/01/17 0611) Radiology and Other Diagnostic Procedures Review: Pertinent radiology reviewed. Dwight Crowell MD 04/01/2017 Pager: [phone] * Gus Hutchison DO - 04/01/2017 8:14 AM BAND SAW OPERATOR Formatting of this note may be different from the original. Endocrine Progress Note Admission Date: 03/31/2017 LOS: 1 day Active Problems: Stage 5 chronic kidney disease on chronic dialysis ([facility]) Type 2 diabetes mellitus with hyperglycemia, with long-term current use of insulin ([facility]) HTN (hypertension) PVD (peripheral vascular disease) ([facility]) Diabetic Charcot foot ([facility]) Anemia in chronic kidney disease, on chronic dialysis (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 Thank you for this consult; we will continue to follow Patient was seen and discussed with Dr. Castillo No future appointments. Subjective Antoine Sung is a 51 y.o. male No acute events overnight . Patient more oriented today, states that he is on lantus 10 units at home with no other medication for diabetes. Estimated Creatinine Clearance: 13.2 mL/min (based on Cr of 7.13). ROS No Nausea, Vomiting , Abd pain , fevers Medications Scheduled Meds: cefTRIAXone (ROCEPHIN) IVP 1 g 1 g Intravenous Q24H* docusate (COLACE) capsule 100 mg 100 mg Oral BID heparin (porcine) PF syringe 5,000 Units 5,000 Units Subcutaneous Q8H levETIRAcetam in NaCl (iso-os) (KEPPRA) IVPB (premade) 1,000 mg 100 mL 1,000 mg Intravenous QDAY(12) levETIRAcetam in NaCl (iso-os) (KEPPRA) IVPB (premade) 500 mg 100 mL 500 mg Intravenous ONCE metoprolol (LOPRESSOR) injection 5 mg 5 mg Intravenous Q6H* milk of magnesia (CONC) oral suspension 10 mL 10 mL Oral QDAY senna/docusate (SENOKOT-S) tablet 1 tablet 1 tablet Oral BID Continuous Infusions: PRN and Respiratory Meds:acetaminophen Q4H PRN, hydrALAZINE Q6H PRN, labetalol ( NORMODYNE; TRANDATE) injection Q15 MIN PRN, ondansetron (ZOFRAN) IV Q6H PRN, sodium chloride 0.9% (NS) IP Dialysis PRN, sodium chloride 0.9% (NS) IP Dialysis PRN, sodium chloride 0.9% (NS) IP Dialysis PRN Objective Vital Signs: Last Filed Vital Signs: 24 Hour Range BP: 121/53 (03/31 1900) Temp: 37.2 C (99 F) (04/01 511) Pulse: 87 (04/01 0700) Respirations: 28 PER MINUTE (04/01 799) SpO2: 99 % (04/01 799) O2 Delivery: None (Room Air) (04/01 799) SpO2 Pulse: 87 (04/01 799) BP: (100-153)/(53-84) ABP: (86-170)/(43-77) Temp: [37.1 C (98.8 F)-37.8 C (100.1 F)] Pulse: [73-105] Respirations: [7 PER MINUTE-28 PER MINUTE] SpO2: [95 %-100 %] O2 Delivery: None (Room Air) Intensity Pain Scale 0-10 (Pain 1): 0 (03/31/17 1200) Vitals: 03/31/17 0225 04/01/17 0512 Weight: 77.9 kg (171 lb 11.8 oz) (S) 76.1 kg (167 lb 12.3 oz) Intake/Output Summary: (Last 24 hours) Intake/Output Summary (Last 24 hours) at 04/01/17 0814 Last data filed at 04/01/17 0800 Gross per 24 hour Intake 1537.05 ml Output 159 ml Net 1378.05 ml Physical Exam General: Alert, cooperative, no distress, appears stated age Chest Wall: HD cath in place. Lungs: Breathing comfortably , in no distress Heart: Regular rate and rhythm Abdomen: Soft, non-tender. Extremities: Extremities atraumatic, no edema [employer] LIAISON: Nonfocal, moves all extremities Lab Review Lab Results Component Value Date/Time NA 135 (L) 04/01/2017 04:00 AM K 3.7 04/01/2017 04:00 AM CL 105 04/01/2017 04:00 AM CO2 19 (L) 04/01/2017 04:00 AM GAP 11 04/01/2017 04:00 AM Lab Results Component Value Date/Time WBC 11.6 (H) 04/01/2017 04:00 AM HGB 9.2 (L) 04/01/2017 04:00 AM PLTCT 207 04/01/2017 04:00 AM Point of Care Testing (Last 24 hours) Glucose: (!) 135 POC Glucose (Download): (!) 111 Glucose, POC Date/Time Value Ref Range Status 04/01/2017 0653 111 (H) 70 - 100 MG/DL Final 04/01/2017 0605 108 (H) 70 - 100 MG/DL Final 04/01/2017 0503 119 (H) 70 - 100 MG/DL Final 04/01/2017 0358 136 (H) 70 - 100 MG/DL Final 04/01/2017 0254 141 (H) 70 - 100 MG/DL Final 04/01/2017 0145 118 (H) 70 - 100 MG/DL Final 04/01/2017 0054 114 (H) 70 - 100 MG/DL Final 04/01/2017 0016 93 70 - 100 MG/DL Final Gus Hutchison Endocrine Resident Pager # [phone] 04/01/2017 Associated attestation - Yvonne Castillo MD - 04/01/2017 10:36 PM BAND SAW OPERATOR Formatting of this note may be different from the original. ATTESTATION I personally performed the antunez portions of the E/M visit, discussed case with resident and concur with resident documentation of history, physical exam, assessment, and treatment plan unless otherwise noted. Staff name: Yvonne Castillo MD Date: 04/01/2017 * Genoveva Mena APRN - 04/01/2017 7:48 AM BAND SAW OPERATOR Formatting of this note may be different from the original. Neuro Critical Care Progress Note Antoine Sung Admission Date: 03/31/2017 LOS: 1 day Full Code ASSESSMENT/PLAN Patient Active Problem List Diagnosis Date Noted Stage 5 chronic kidney disease on chronic dialysis ([facility]) 03/31/2017 Type 2 diabetes mellitus with hyperglycemia, with long-term current use of insulin ([facility]) 03/31/2017 HTN (hypertension) 03/31/2017 PVD (peripheral vascular disease) ([facility]) 03/31/2017 Diabetic Charcot foot ([facility]) 03/31/2017 Anemia in chronic kidney disease, on chronic dialysis ([facility]) 03/31/2017 Antoine Sung is a 51 y.o. male with PMH of DM, renal failure on dialysis, and anemia who presents with seizure to OSH. Transferred to [facility] on 03/31 for possible status. Hospital and ICU course: 03/31: Admit to NEICU - arrived intubated - able to extubate later without complication. Concern for DKA - endocrinology consulted 04/01: no clinical seizures overnight. Neuro intact; HD today. Off insulin gtt this AM. Likely transfer to [facility] status today. Neuro: No acute issues - not on AEDs at home - loaded with Keppra 1000mg at OSH - Continue Keppra 500mg daily (after HD on dialysis days, regular time on non- HD days) - no clinical s/sxs of seizure since extubation - Neuro-ICU monitoring, neurochecks q 4 hrs Imaging: - 03/31 MRI Head wo: read pending - 03/31 MRA head wo: read pending - 03/31 MRA neck wo: read pending Sedation/Pain Management: no acute issues - PRN tylenol available - Assess for delirium daily Cardiac: Elevated troponin (improved); HTN - SBP goal <160mmhg - MAP goal > 65mmHg - PRN hydralazine and labetalol available - no requiring - SR/ST on tele (73-103 last 24h) - 04/01: - restart WATER QUALITY ANALYST metoprolol XL 100mg daily at lower dose (50mg daily) to ensure patient tolerating and increase 04/02 if tolerated overnight. - no longer trending troponins (0.10 --> 0.11 --> 0.08) Respiratory: No acute issues Date of Intubation: 03/31 Date of Extubation: 03/31 - Stable on RA - Spo2 goal >92%, PaO2 goal >100mmHg, PCO2 goal 35-45mmHg GI: BMI 26.3; elevated Alk phos (resolved) - Feeding: Combination Carb (75g/meal) + renal diet per dietary recs - neurosurgery bowel regimen in place - Goal of daily BM (last BM: WATER QUALITY ANALYST) - 04/01: AST 13 ALT 5 Alk phos 95 - 03/31: AST 16 ALT 7 Alk phos 132 Heme: Anemia of chronic disease - Daily CBC - 04/01: Hgb 9.2 Hct 27.1 Plts 207 - 03/31: Hgb 10.4 Hct 30.6 Plts 227 - SCDs and SQ heparin for VTE ppx - assess for coagulopathy, maintain platelets above 100k, INR <1.5 ID: Leukocytosis - likely reactionary - improved - Tmax 37.8 - Daily CBC - 04/01 WBC: 11.6 (was 15.7) - 03/31 UA concerning for UTI - rocephin started - 04/01: urine Cx negative (final) - rocephin d/c'd - Aim for normothermia - [place]-culture for temp >38.3C with consideration of initiating broad-spectrum antibiotics - Normothermia protocol if febrile Renal: ESRD on HD (MWF normally); elevated CK (improved); Elevated BUN/Cr; hyponatremia (resolved) - Daily BMP - 04/01: Na 135 (was: 127) - 04/01: BUN/Cr 31 / 7.13 (was: 30 / 6.34) - I/O balance +1.6L over 24 hrs; +2.1L for admission - Aim for normovolemia - 04/01: s/p HD (~1L off) - renal following - appreciate assistance - will attempt to get back on MWF HD schedule - CK peaked at 323; 284 on 04/01 - no longer trending Endocrine: Uncontrolled DM2; elevated beta hydroxybutyrate - likely 2/2 ESRD - BG last 24h: 80 - 241 - Blood glucose goal 100-160mg/dl - 03/31 HgbA1c: 14.7 - Endocrine following - appreciate assistance - insulin gtt d/c'd overnight 04/01 - was only requiring on 3u/hr - likely start LDCF SSI once taking PO diet FEN: hypokalemia; hypomagnesemia - IVF: n/a - Electrolyte replacement protocol not in place 2/2 ESRD - replacing electrolytes PRN - 04/01: Mg 1.8 i-Ca 1.03 K 3.7 Phos 3.8 Cl 105 - ordered 1g IV mg, and 40mEq PO KCl - Magnesium goal >2.0, i-Wade goal > 1.0, Potassium goal >4.0, Phos >2.0 Prophylaxis Review: A)GI: n/a B) Lines: Yes; Arterial Line; Indication: Continuous BP monitoring; Location: Radial - d/c 04/01 Central Line; Indication: Hemodialysis/Plasmapheresis; Type: tunneled double lumen dialysis catheter - R subclavian C) Urinary Catheter: No D) Antibiotic Usage: No E) VTE: Pharmacological prophylaxis; SQ Heparin and Mechanical prophylaxis; Sequential compression device F) Isolation: n/a G)Seizures: keppra I) Restraints: Patient assessed for need for restraints. Disposition/Family: Stable to transfer to floor. Primary service: NEICU Consults: Endocrinology; nephrology; rehab medicine SUBJECTIVE Antoine Sung is a 51 y.o. male. Overnight Events: No new events noted OBJECTIVE Vital Signs: Last Filed Vital Signs: 24 Hour Range BP: 121/53 (03/31 1900) ABP: 154/66 (04/01 1300) Temp: 36.6 C (97.9 F) (04/01 819) Pulse: 88 (04/01 1300) Respirations: 9 PER MINUTE (04/01 1300) SpO2: 98 % (04/01 1299) O2 Delivery: None (Room Air) (04/01 819) Weight: 76.1 kg (167 lb 12.3 oz) (04/01 05) BP: (121-137)/(53-76) ABP: (94-166)/(46-76) Temp: [36.6 C (97.9 F)-37.8 C (100.1 F)] Pulse: [82-105] Respirations: [0 PER MINUTE-32 PER MINUTE] SpO2: [95 %-100 %] O2 Delivery: None (Room Air) Intensity Pain Scale 0-10 (Pain 1): (not recorded) Vitals: 03/31/17 0225 04/01/17511 Weight: 77.9 kg (171 lb 11.8 oz) (S) 76.1 kg (167 lb 12.3 oz) Artificial airway: None Ventilator/ Respiratory Therapy: No Vent weaning trial: Not applicable Lines: Dialysis Catheter, Arterial Line and Peripheral Line Drains: None Intake/Output Summary: (Last 24 hours) Intake/Output Summary (Last 24 hours) at 04/01/17 1503 Last data filed at 04/01/17 1230 Gross per 24 hour Intake 840.81 ml Output 1635 ml Net -794.19 ml Physical Exam: Blood pressure 121/53, pulse 88, temperature 36.6 C (97.9 F), height 170.2 cm (67"), weight (S) 76.1 kg (167 lb 12.3 oz), SpO2 98 %. Katy coma score: 13 E: 3 - Opens eyes to loud noise or command M: 6 - Follows simple motor commands V: 4 - Seems confused, disoriented Neuro: Mental Status: awakens easily to voice; oriented to person, place (hospital), time Cranial Nerves: Cranial nerves 2-12 INTACT by inspection. - Pupil exam: Size: 4mm Bl Reactivity: brisk BL - EOM: intact - Corneal reflex: R - present L - present - Grimace/facial movement: present - Cough: present - Gag reflex: deferred Motor: RUE: Strength: 4/5; follows commands RLE: Strength: 4/5; follows commands LUE: Strength: 4/5; follows commands LLE: Strength: 4/5; follows commands Sensory: normal Lungs: diminished breath sounds R base and L base Pulmonary: Respiratory status: Stable Heart: regular rate and rhythm Abdomen: soft, non-tender. Bowel sounds normal. No masses, no organomegaly Extremities: extremities normal, atraumatic, no cyanosis or edema Skin: Skin color, texture, turgor normal. No rashes or lesions Point of Care Testing: (Last 24 hours) Glucose: (!) 135 (04/01/17 0400) POC Glucose (Download): (!) 111 (04/01/17 0653) Lab Review: Pertinent labs reviewed Radiology and Other Diagnostic Procedures Review: Pertinent radiologic and diagnostic procedures reviewed. Subsequent hospital stay Genoveva Mena, ELECTRONICS REPAIR TECHNICIAN Date: 04/01/2017 [phone] - NEICU Team Pager * Jesi Garcias RN - 03/31/2017 8:50 AM BAND SAW OPERATOR 0845: patient extubated with RT and MD at bedside. Patient following commands, drowsy. Nods appropriately at this time. precedex had been off, restarted for short time prior to extubating due to patient getting restless. Restraints off and precedex off as well. Patient drowsy post extubation. But wakes up when spoken to, 0913: spoke to MD about patients labs, potassium was ordered. Relayed that patient is still very drowsy and not really staying awake to complete tasks. Unable to complete bedside swallow at this point. MD states its ok to hold PO meds for now. Social work got a hold of daughter, dialysis M-W-F, 12-4. Lives independently at home with help of family. * Dwight Crowell MD - 03/31/2017 8:26 AM BAND SAW OPERATOR Formatting of this note may be different from the original. NEURO-ENT ICU Critical Care Progress Note Today's Date: 03/31/2017 Name: Antoine Sung Admission Date: 03/31/2017 LOS: 0 days ICU problem list: Patient Active Problem List Diagnosis Date Noted Stage 5 chronic kidney disease on chronic dialysis ([facility]) 03/31/2017 Type 2 diabetes mellitus with hyperglycemia, with long-term current use of insulin ([facility]) 03/31/2017 HTN (hypertension) 03/31/2017 PVD (peripheral vascular disease) ([facility]) 03/31/2017 Diabetic Charcot foot ([facility]) 03/31/2017 Anemia in chronic kidney disease, on chronic dialysis ([facility]) 03/31/2017 ATTESTATION Date of Service: 03/31/2017 I have seen, personally fully evaluated, and discussed patient with the NEURO- ENT ICU team. The patient is critically ill with seizures, DKA, acute respiratory failure, metaoblic acidosis. I spent 40 minutes (excluding time spent performing or supervising any procedures) providing and personally directing critical care services including neuro monitoring and management, ventilator management, pain/sedation/delirium mgt, hemodynamic monitoring and management, lab and radiology review, medication review and management, fluid and electrolyte management and coordination of care. O/e: Intubated, Somnolent, follows commands x 4, does not know what happened but knows he's in hospital Neuro: - MRI/A for seizure w/up, stroke felt unlikely since he is following commands now - Keppra 1000 mg bid - PT/OT Resp: - extubate patient - wean oxygen as tolerated Cardiac: - metop restart 50 mg bid home dose Renal: - ESRD on HD - consult dialysis service, patient gets M,W,F HD Endocrine: - insulin gtt for DKA - check hgb a1c - obtain home regimen ID: - pancultured - rocephin for UTI, may have provoked seizures in addition to DKA Heme: - sq heparin GI: - swallow eval, advance as tolerated Sq heparin, pepcid Dispo: This patient is critically ill with dysfunction of multiple organ systems and is at risk for additional life threatening deterioration. Cont ICU care. Staff name: Dwight Crowell MD Date: 03/31/2017 __ Objective: Medications: Scheduled Meds: cefTRIAXone (ROCEPHIN) IVP 1 g 1 g Intravenous Q24H* docusate (COLACE) capsule 100 mg 100 mg Oral BID famotidine (PEPCID) injection 20 mg 20 mg Intravenous QDAY heparin (porcine) PF syringe 5,000 Units 5,000 Units Subcutaneous Q8H levETIRAcetam in NaCl (iso-os) (KEPPRA) IVPB (premade) 1,000 mg 100 mL 1,000 mg Intravenous BID milk of magnesia (CONC) oral suspension 10 mL 10 mL Oral QDAY senna/docusate (SENOKOT-S) tablet 1 tablet 1 tablet Oral BID SODIUM CHLORIDE 0.9 % IV SOLP (Cabinet Override) NOW Continuous Infusions: dexmedetomidine (PRECEDEX) 400 mcg/NS 100 ml IV drip Stopped (03/31/17 08 ) dextrose 5 % & 0.45% NaCl infusion 125 mL/hr at 03/31/17 0513 insulin regular (NOVOLIN R) 100 Units in sodium chloride 0.9% (NS) 100 mL IV drip (std conc) 4.5 Units/hr (03/31/17 0724) Vital Signs: Last Filed Vital Signs: 24 Hour Range BP: 175/95 (03/31 0300) ABP: 110/59 (03/31 819) Temp: 36.9 C (98.4 F) (03/31 0500) Pulse: 73 (03/31 08) Respirations: 13 PER MINUTE (03/31 814) SpO2: 100 % (03/31 819) O2 Delivery: Endotracheal Tube (Oral) (03/31 744) Height: 170.2 cm (67") (03/31 224) Weight: 77.9 kg (171 lb 11.8 oz) (03/31 224) BP: (146-175)/(84-95) ABP: (97-169)/(51-68) Temp: [34 C (93.2 F)-36.9 C (98.4 F)] Pulse: [63-87] Respirations: [0 PER MINUTE-27 PER MINUTE] SpO2: [100 %] O2 Delivery: Endotracheal Tube (Oral) Intensity Pain Scale 0-10 (Pain 1): 0 (03/31/17 0745) Vitals: 03/31/17 0225 Weight: 77.9 kg (171 lb 11.8 oz) Intake/Output Summary: (Last 24 hours) Intake/Output Summary (Last 24 hours) at 03/31/17 0826 Last data filed at 03/31/17 0700 Gross per 24 hour Intake 640.54 ml Output 120 ml Net 520.54 ml Artificial airway: Endotracheal Tube Ventilator/ Respiratory Therapy: Yes: Vent weaning trial: Extubate today Prophylaxis Review: Lines: No Urinary Catheter: Yes; Retain youngblood due to: Need for accurate Intake and Output Antibiotic Usage: Yes; Infection present or suspected: /GI; UTI VTE: Pharmacological prophylaxis; SQ Heparin and Mechanical prophylaxis; Sequential compression device Lab Review: Pertinent labs reviewed Point of Care Testing: (Last 24 hours): Glucose: (!) 244 (03/31/17 0554) POC Glucose (Download): (!) 163 (03/31/17 0805) Radiology and Other Diagnostic Procedures Review: Pertinent radiology reviewed. Dwight Crowell MD 03/31/2017 Pager: [phone] in this encounter H&P Notes * AngelLinda clarkeis, PAUL - 03/31/2017 12:46 AM BAND SAW OPERATOR Formatting of this note may be different from the original. Neuro Critical Care History and Physical Note Antoine Sung Admission Date: 03/31/2017 LOS: 0 days Full Code ASSESSMENT/PLAN Patient Active Problem List Diagnosis Date Noted Stage 5 chronic kidney disease on chronic dialysis ([facility]) 03/31/2017 Type 2 diabetes mellitus with hyperglycemia, with long-term current use of insulin ([facility]) 03/31/2017 HTN (hypertension) 03/31/2017 PVD (peripheral vascular disease) ([facility]) 03/31/2017 Diabetic Charcot foot ([facility]) 03/31/2017 Anemia in chronic kidney disease, on chronic dialysis ([facility]) 03/31/2017 Antoine Sung is a 51 y.o. male with PMH of DM, renal failure on dialysis, and anemia who presents with seizure to OSH. Transferred for possible status. Hospital and ICU course: 03/31: admitted to NEICU intubated. Neuro: Status epilepticus - load with Keppra, not on AEDs at home - started 1000mg BID - plan to get an MRI when able - may need vEEG - received a total of 4mg Ativan and 5mg Versed at OSH, as well as propofol infusion - Decrease sedation for exam - VTE prophylaxis: Pharmacological prophylaxis; SQ Heparin and Mechanical prophylaxis; Sequential compression device - Neuro-ICU monitoring, neurochecks q 1 hrs Sedation/Pain Management: - Propofol for sedation, will switch to precedex - PRN tylenol and oxycodone - Assess for delirium daily Cardiac: - SBP goal: <160 - MAP goal > 65 - WATER QUALITY ANALYST antihypertensives reordered - WATER QUALITY ANALYST statin reordered Respiratory: Intubated: 03/31 for seizure and decreased mental status Vent settings: A/C Vt 450 RR 16 PEEP 5 FiO2 30 - ABG: pH 7.33 CO2 39 O2 147 HCO3 20.1 - CXR: pending read. ETT in proper place - PaO2 goal >100, Spo2 goal >95% GI: - Feeding: NPO - Famotidine for ppx while intubated - OGT to LIWS - neurosurgery bowel regimen, ensure daily BM Heme: anemia 2/2 renal failure - Hgb 11.9 Plts 290 - assess for coagulopathy, maintain platelets above 100k, INR <1.5 ID: - Tmax afebrile - WBCs 13.5 - urbina cultured - lactic acid 3.78 down from 6.87 - continue to trend until <2.0 - UA suggestive of UTI - culture sent - started rocephin - aim for normothermia, Temp <38.3 celsius, normothermia protocol if febrile Renal: renal failure on chronic dialysis - maintain strict I&O monitoring - BUN/Cr 7.52 - trending CKs - Schedule may be Wednesday, , Wednesday. Last known was 03/27, but labs indicate may have been later - Aim for normovolemia Endocrine: DM, DKA - Glucose on arrival 186 down from 764 - beta hydroxybutyrate 0.8 - Urine ketones negative - started insulin gtt and D5 1/2 NS @ 125mL/hr - Blood glucose goal 100-180mg/dl FEN: - IVF: D5 1/2 NS @ 125 - electrolyte replacement PRN - Q2 hour lab work - Magnesium goal >2.0, i-Wade goal > 1.0, Potassium goal >4.0 mEq/L Prophylaxis Review: A)GI: [id number] - while intubated B) Lines: Yes; Arterial Line; Indication: Frequent blood draws and Continuous BP monitoring; Location: Radial C) Urinary Catheter: Yes; Retain youngblood due to: Need for accurate Intake and Output D) Antibiotic Usage: No E) VTE: { F) Isolation: None G)Seizures: Keppra I) Restraints: Patient assessed for need for restraints. Disposition/Family: Unchanged. Primary service: NCC Consults: None SUBJECTIVE Chief Complaint: Seizure History of Present Illness: Antoine Sung is a 51 y.o. male who was taken to the ED @ [facility] on 03-28 for overall feeling not well, nausea, vomiting, weakness, right facial droop, and difficulty swallowing and work up found to be negative for stroke. It is recorded that at this time, his SBP was >200, his blood sugar was 691, anion gap was 17. He was transferred at this time to [facility] in [facility] [place] and released on 03/29. The records state that he can be non- compliant with medications and that he states that he hadn't taken his medication recently, due to upset stomach. Mr. Sung was in his home on 03/30 and reportedly began "having seizures" per report from [facility]. The patient's took him back to [facility] where his BS was 764, anion gap was 23, lactic acid was 6.87. He seized multiple times at the hospital and was given a total of 4mg Ativan and 5mg Versed. He was intubated by anesthesia, per the notes, after a lengthy attempt by the emergency room staff. Drug screen was negative. Mr. Sung was given a total of 1500mL/s of normal saline, a total of 15U IV insulin, and was flown to [facility] for further management of possible non-convulsive status, DKA, and infection. On arrival, Mr. Sung is unresponsive and 34 degrees C as well as bradycardic and hypertensive. With warming, and after turning off sedation, the heart rate went up to the 80's, and the patient began following commands in his left upper extremity. Right side is weak. Obtaining MRI. Patient was started on IV insulin and D5W 1/2 NS. Anion gap when from 12 to 14. No one accompanied Mr. Sung to [facility]. should be coming today. No past medical history on file. No past surgical history on file. No family history on file. Social History Social History Narrative 03/31/17 - lives in a home with . Has a son. Code Status: Full Code Decision Maker: Immunizations (includes history and patient reported): There is no immunization history on file for this patient. Allergies: Review of patient's allergies indicates no known allergies. Prescriptions Prior to Admission Medication Sig amLODIPine (NORVASC) 10 mg tablet Take 10 mg by mouth daily. insulin glargine (LANTUS SOLOSTAR, BASAGLAR) 100 unit/mL (3 mL) injection PEN Inject 10 Units under the skin at bedtime daily. metFORMIN (GLUCOPHAGE) 500 mg tablet Take 500 mg by mouth twice daily with meals. metOLazone (ZAROXOLYN) 2.5 mg tablet Take 2.5 mg by mouth daily. metoprolol XL (TOPROL XL) 100 mg extended release tablet Take 100 mg by mouth daily. nitrofurantoin monohyd/m-cryst (MACROBID) 100 mg capsule Take 100 mg by mouth every 12 hours. Take with food. Review of Systems: All other systems reviewed and are negative. OBJECTIVE Vital Signs: Last Filed Vital Signs: 24 Hour Range BP: 175/95 (03/31 030) ABP: 169/64 (03/31 399) Temp: 36.9 C (98.4 F) (03/31 499) Pulse: 87 (03/31 399) Respirations: 13 PER MINUTE (03/31 399) SpO2: 100 % (03/31 399) O2 Delivery: Endotracheal Tube (Oral) (03/31 399) Height: 170.2 cm (67") (03/31 224) Weight: 77.9 kg (171 lb 11.8 oz) (03/31 224) BP: (146-175)/(84-95) ABP: (169)/(64) Temp: [34 C (93.2 F)-36.9 C (98.4 F)] Pulse: [63-87] Respirations: [13 PER MINUTE-21 PER MINUTE] SpO2: [100 %] O2 Delivery: Endotracheal Tube (Oral) Intensity Pain Scale 0-10 (Pain 1): (not recorded) Vitals: 03/31/17 0225 Weight: 77.9 kg (171 lb 11.8 oz) Artificial airway: Endotracheal Tube Ventilator/ Respiratory Therapy: Yes: Mode: V/AC+ Set Vt (ml): [450 milliliters] Tidal Volume Spont (mL): [519 milliliters-535 milliliters] Set RR: [16 breaths/minutes] Total Respiratory Rate (Breaths/Min): [16 breaths/minutes-24 breaths/minutes] O2%: [30 %] PIP Actual: [23 cm H20-29 cm H20] PEEP/CPAP: [5 cm H2O] Vent weaning trial: Not applicable Lines: Dialysis Catheter, Arterial Line and Peripheral Line Drains: Youngblood Catheter: - mL Critical Care Vitals: ICP Monitoring: Hemodynamics/Oxycalcs: Intake/Output Summary: (Last 24 hours) Intake/Output Summary (Last 24 hours) at 03/31/17 0514 Last data filed at 03/31/17 0300 Gross per 24 hour Intake 0 ml Output 60 ml Net -60 ml Physical Exam: Blood pressure (!) 175/95, pulse 87, temperature 36.9 C (98.4 F), height 170.2 cm (67"), weight 77.9 kg (171 lb 11.8 oz), SpO2 100 %. Katy coma score: E: 3 - Opens eyes to loud noise or command M: 6 - Follows simple motor commands V: 1 - Makes no noise Neuro: Mental Status: follows commands on the left upper, spontaneous left lower, minimal movement on the right side Cranial Nerves: Cranial nerves 2-12 INTACT. - Pupil exam: Size: 2-3 Reactivity: brisk - EOM: resists occulocephalic - Corneal reflex: R - present L - present - Grimace/facial movement: present - Cough: present - Gag reflex: present Motor: RUE: Strength: 1/5; contracted? RLE: Strength: 1/5; LUE: Strength: 4/5; contracted? LLE: Strength: 4/5; Sensory: diffucult to assess - history of neuropathy. Lungs: clear to auscultation bilaterally Pulmonary: Mechanical ventilation A/C and Respiratory status: Improving Heart: S1, S2 normal Abdomen: normal findings: bowel sounds normal, soft, non-tender Extremities: extremities normal, atraumatic, no cyanosis or edema Skin: Skin color, texture, turgor normal. No rashes or lesions Point of Care Testing: (Last 24 hours): Glucose: (!) 230 (03/31/17 0245) POC Glucose (Download): (!) 235 (03/31/17 1186) Lab Review: Pertinent labs reviewed Radiology and Other Diagnostic Procedures Review: Pertinent radiologic and diagnostic procedures reviewed. I spent 65 minutes managing the care of this patient. Mr. Sung remains critically ill s/p seizures, with hyperglycemia, and decreased mental status and dialysis dependence. Cares included: detailed neurologic and systems exam, medication review, laboratory data review and interpretation, electrolyte management, review of available imaging, DVT/PE prophylaxis review, diet review , activity review, and coordination of care with consulted teams. Hortencia Lyman, ELECTRONICS REPAIR TECHNICIAN Date: 03/31/[phone] in this encounter Procedure Notes * Yimi Nugent RN - 04/05/2017 2:38 PM BAND SAW OPERATOR Associated Order(s): HEMODIALYSIS INPATIENT; HEMODIALYSIS DATE Formatting of this note may be different from the original. 1245 Report received form PRAVEENA Knapp. 1330 Patient arrived on bed,alert and oriented x 4,RA,WOORDUFF,denies pain,VSS per patient trends. Initial assessment completed and charted per doc flow sheets. 1343 Tunneled catheter accessed without any problems. Dialysis started per orders: HEMODIALYSIS INPATIENT [[id number]] 6 Status: Active Ordering user: Aaron Westbrook [...] catheter deaccessed, flushed, packed, and capped. * Martinez Wong, RN - 04/02/2017 11:42 AM BAND SAW OPERATOR Associated Order(s): HEMODIALYSIS INPATIENT; HEMODIALYSIS DATE Report received from Primary Care Avi GRISSOM. Pt arrived via bed and attached to nbp, cardiac and oximetry monitoring. Pt ID and consent verified. Tunneled dialysis catheter accessed, with both ports aspirating and flushing without difficulty. HD ORDERS: Conventional Hemodialysis for 3.5 hours, F160 Dialyzer, 4.0L net UF pr Dr Westbrook, 3K 2.5Ca bath per protocol, Max Blood Blow 400, Max Dialysate Flow 800. 1010 TX START. Prescribed treatment parameters achieved. Lines and access secure In view and intact. Face uncovered and in view. See Hemodialysis Flow Sheet and MAR for details. Dr Westbrook and Dr Lozano present at tx start. 1340 TX END. Net UF 4.0L. Tunneled Hemodialysis Line flushed and packed with citrate, see MAR for details. Report called to Primary Care Avi GRISSOM. * Richie Dunbar, PRAVEENA - 04/01/2017 6:29 AM BAND SAW OPERATOR 0620 Arrived to room CA 5120 . Performed handoff from Mayra GRISSOM. Patient resting at this time. 0730 Dr. Westbrook at bedside. 0817 Treatment tolerated well. Packed catheter with Citrate sodium 1.4 ml per port. [facility] Rn Given report. Net UF 1 liter. Pt remaining in room at this time. * Agustina Carson, PRAVEENA - 04/01/2017 5:49 AM BAND SAW OPERATOR Associated Order(s): HEMODIALYSIS INPATIENT; HEMODIALYSIS DATE 429 - Arrive to patient room. Patient resting in bed, ID band verified. Patient uncooperative answering questions per primary RN, explained to patient that orientation questions need to be answered in order to sign consent or delay in treatment start will occur. Patient A&Ox4, MOLD STAMPER consent obtained. 0512 - Treatment start, no access problems using right tunneled HD cath. 3 hour tx, 3K bath, 1L fluid removal, start weight 76.1kg per bed scale. Patient EDW per outpt orders is 72kg, will start tx as ordered with FR goal at 1L with CritLine in place. Patient denies nausea, vitals stable. Patient reports both his BP will drop and he will cramp if excessive fluid is removed. Will continue to monitor closely. 619 - Pass care of patient to system configuration specialist Richie Dunbar. in this encounter Consult Notes * Alecia Gonzalez, PRAVEENA - 04/02/2017 3:41 PM BAND SAW OPERATOR Associated Order(s): CONSULT DIABETES NURSE EDUCATOR INPATIENT DIABETES EDUCATION TEAM Clinical Excellence Nursing Practice Reason for Consult: DKA This consult team does not write orders. Primary Team is responsible for placing orders. Met with Antoine Sung to discuss diabetes management. Pt reports that he takes Lantus 10 units nightly regularly WATER QUALITY ANALYST. Had pt demonstrate his use of insulin at home. Pt was able to complete with moderate verbal prompt. Dicussed with pt that per Endo, Novolog, meal time insulin has been added. Reviewed [facility] with pt. Pt verbalizes understanding. Has been on dialysis since December,. Pt reports that his BGs range from 130's to 300's at home. Pt has a meter at home, unable to recall name. Plans to buy a new one at [facility]. HgbA1c 14.7% demonstrating poor control. Dicussed DM self mgt at home including following ADA /Renal meal plans. Pt was not clear if he watches his diet closely. May benefit from hook and eye sewing machine operator consult for further education/assessment. Encouraged f/u with PCP. Pt states, "I need a new doctor." Pt to d/c to [facility] or SNF on Wednesday. Reviewed hypoglycemia tx/mgt with pt. Reviewed complications of uncontrolled diabetes. Handout provided. Appreciate consult on this patient. If any further needs please consult diabetic nurse educators (Team pager [phone]) Alecia Gonzalez, RN, MSN, CMSRN, CDE Pager: [phone] 08:00-4:30 weekdays, If no response, please call team pager ([phone]) Office: [phone] Diabetic Education Team office ([phone]) * Thania Murcia, RD - 04/01/2017 1:50 PM BAND SAW OPERATOR Associated Order(s): CONSULT DIETITIAN CLINICAL NUTRITION Clinical Nutrition Assessment Summary Nutrition Assessment of Patient: BMI Categories Adult: Over Weight: 25-29.9 Malnutrition Assessment: Does not meet criteria Current Oral Intake: NPO Estimated Calorie Needs: 4086-9327 (28-30 kcal/kg desired wt) Estimated Protein Needs: 85-100 (1.2-1.4 g/kg desired wt) Oral Diet Order: NPO Comment: 51 yo M with PMH including ESRD with HD MWF, DM and HTN. Pt admitted with DKA and seizures. Extubated yesterday. Pt continues NPO today; no interest in food per RN. Followed by endo; insulin drip off currently while NPO. RN DM educator to see pt when appropriate. Pt says he lives with his son and does his own cooking. Limits salt but doesn't really count carbs; does read labels some at store. Says he doesn't eat a lot of bread. Likes some fruits, cheeses/yogurt, cauliflower, carrots and broccoli. Briefly discussed food groups containing carbs and counting carbs in 15g servings (60-75 g per meal) for consistent carb intake to help with blood sugar control. Pt politily listened and answered questions but did not have any questions. Expect minimal compliance. Awaiting clearance for safe swallow to return to po diet. Wt down 1-2 # with 1 week decreased intake WATER QUALITY ANALYST but does not meet malnutrition criteria. Recommendation: When pt medically ready for po intake, recommend combination diet order of 75g /meal consistent carb and renal dialysis diet. If pt unsafe to start po, recommened Novosource Renal EN feeds starting at 20 ml /hr with goal of 45 ml/hr to provide 2160 kcal and 98 g protein per day. Additional fluids per primary team. Intervention / Plan: assessed nutritional status/obtained subjective data provided diet education regarding carb content of foods and consisten carb diet (simple carb counting sheet and label reading) monitor for start of diet; diet recs given; monitor adequacy of po intake when diet starts monitor wt trends, labs, meds, GI status Nutrition Diagnosis: Nutrition Diagnosis: Inadequate oral intake Etiology: s/p extubation Signs & Symptoms: NPO for now Nutrition Diagnosis: Food & nutrition-related knowledge deficit Etiology: DM Signs & Symptoms: elevated A1C of 14.7 Goals: Aid in stabilizing blood glucose Time Frame: Throughout Stay Avoid prolonged NPO status Time Frame: Within [address] * Glenn, Cruz Curry MD - 03/31/2017 5:03 PM BAND SAW OPERATOR Associated Order(s): CONSULT REHABILITATION MEDICINE PHYSICIAN Formatting of this note may be different from the original. Physical Medicine & Rehabilitation Consult Note Date of Service: 03/31/2017 Antoine Sung is a 51 y.o. male. : 1965 Primary Insurance: MEDICARE Secondary Insurance: Tertiary Insurance: Financial Class: Medicare Date of Admission: 03/31/2017 Referring Physician: Dago Beyer MD Reason for Consult: evaluate for Post-Acute Rehab/Placement Precautions: Fall, Weight bearing Precautions: Progressive mobility Active Problems Status epilepticus Acute respiratory failure DKA ESRD Impaired ADLs UTI Assessment & Plan Antoine Sung is a 51 y.o. male admitted to [facility] on with the following issues: Status Epilepticus Impairments: cognitive impairments, dysarthria, dysphagia and weakness Activity Limitations: grooming, bathing, dressing - upper, dressing - lower, toileting, transfers, ambulation and stairs Participation Restrictions: unable to return home safely Post-acute care rehabilitation needs: Patient currently w/ likely medical complexity and goals in therapies appropriate for rehab in an inpatient setting. Function may be limited by post-ictal state and suspect this will improve w/ improving cognition as there are minimal focal deficits on exam. Likely Short stay in IRF vs. progression to home w/ HH therapies at discharge. Rehab: Patient with deficits in bed mobility, transfers, gait, ambulation, self- cares and ADLs. Has been working with OT and PT and has continued goals with both disciplines. Differences between acute and subacute/SNF and qualifications for each one were explained to patient . Cognition: Recommend HR INTERN to evaluate and manage cognitive deficits. Bowel: Last BM documented WATER QUALITY ANALYST. Agree with pharmacologic bowel regimen given immobility and while in the hospital. Bladder: Voiding independently Cruz Elizabeth MD Rehab Consult Pager: [phone] History of Present Illness Hospital Course: Antoine Sung is a 51 y.o. male with PMHx of DM, renal failure on dialysis, and anemia who was transferred to [facility] from [facility] 03/31/17 for status epilepticus in setting of DKA and UTI. He was intubated and given IV ativan/ versed prior to transfer and was loaded w/ keppra at . He was started on rocephin for dirty UA. PT/OT have been consulted for therapies and rehab has been consulted for placement. Patient reports feeling weak "all over." He also reports his speech seems different but is able to describe how it is different. Knows where he is and why he is in the hospital. Past Medical History Past Medical History: Diagnosis Date Anemia Charcot foot due to diabetes mellitus (HCC) DM (diabetes mellitus) (HCC) HTN (hypertension) PVD (peripheral vascular disease) ([facility]) Renal failure Past Surgical History No past surgical history on file. Family\\Social History Social History Social History Marital status: Spouse name: N/A Number of children: N/A Years of education: N/A Social History Main Topics Smoking status: Not on file Smokeless tobacco: Not on file Alcohol use Not on file Drug use: Not on file Sexual activity: Not on file Other Topics Concern Not on file Social History Narrative 03/31/17 - lives in a home with . Has a son. Name on file for is Casandra Sung [phone] Family history reviewed; non-contributory Medications: anticoagulant sodium citrate solution 1-5 mL 1-5 mL Intra-catheter ONCE cefTRIAXone (ROCEPHIN) IVP 1 g 1 g Intravenous Q24H* docusate (COLACE) capsule 100 mg 100 mg Oral BID heparin (porcine) PF syringe 5,000 Units 5,000 Units Subcutaneous Q8H [START ON 04/01/2017] levETIRAcetam in NaCl (iso-os) (KEPPRA) IVPB (premade) 1, 000 mg 100 mL 1,000 mg Intravenous QDAY(12) levETIRAcetam in NaCl (iso-os) (KEPPRA) IVPB (premade) 500 mg 100 mL 500 mg Intravenous ONCE metoprolol (LOPRESSOR) injection 5 mg 5 mg Intravenous Q6H* milk of magnesia (CONC) oral suspension 10 mL 10 mL Oral QDAY senna/docusate (SENOKOT-S) tablet 1 tablet 1 tablet Oral BID PRN Medications: acetaminophen Q4H PRN, hydrALAZINE Q6H PRN, labetalol (NORMODYNE; TRANDATE) injection Q15 MIN PRN, ondansetron (ZOFRAN) IV Q6H PRN, sodium chloride 0.9% (NS ) IP Dialysis PRN, sodium chloride 0.9% (NS) IP Dialysis PRN, sodium chloride 0.9% (NS) IP Dialysis PRN Allergies: No Known Allergies Prior Level of Function Lives in [place], [place] w/ his son in a house w/ 4 steps to enter. He was independent w/o use of DME prior to hospitalization. He does not work and his son works at night and is potentially home during the day to assist him. He was independent and fairly active prior to hospitalization. Home Environment: Current Level Of Function: PT Gait:Gait Distance: 2 feet Gait: Assistance Level: Minimal Assist Gait: Assistive Device: Hand Hold Assist Bed Mobility/Transfers Bed Mobility: Supine to Sit: Minimal Assist Transfer Type: Sit to Stand Transfer: Assistance Level: From, Bed, Minimal Assist Transfer: Assistive Device: Hand Hold Assist Transfers: Type Of Assistance: For Balance, For Safety Considerations Other Transfer Type: Stand Pivot Other Transfer: Assistance Level: Bed, To, Bed Side Chair, Minimal Assist, of 1st person, Standby Assist, of 2nd person Other Transfer: Assistive Device: Hand Hold Assist Other Transfer: Type Of Assistance: For Balance, For Safety Considerations End Of Activity Status: Up in Chair, Nursing Notified OT ADL's Where Assessed: Chair Grooming Assist: Not Addressed Today (Patient declined) LE Dressing Assist: Maximum Assist LE Dressing Deficits: Don/Doff R Sock, Don/Doff L Sock Functional Transfer Assist: Minimal Assist (x2) Functional Transfer Deficits: (Stand Pivot to Chair) Comment: Patient seated at EOB with PT upon OT arrival. Completed transfer to chair w/ PT then completed OT evaluation after PT left. Patient remained seated in chair at end of session, TABS alarm on. Review of Systems A 14 point review of systems was negative except for: as noted per HPI Physical Exam BP: 137/70 (03/31 1599) Temp: 37.4 C (99.4 F) (03/31 1434) Pulse: 98 (03/31 1599) Respirations: 22 PER MINUTE (03/31 1599) SpO2: 100 % (03/31 1599) O2 Delivery: (P) None (Room Air) (03/31 1599) SpO2 Pulse: 99 (03/31 1599) Height: 170.2 cm (67") (03/31 0225) Body mass index is 26.9 kg/(m^2). Gen: well appearing, NAD CV: well perfused, distal pulses intact Pulm: breathing unlabored, normal effort Abd: nondistended Extremities: No edema Skin: no obvious rashes or lesions on exposed surfaces Psych: Appropriate mood, normal affect : No youngblood MS: Root Right Left Shoulder Abduction C5 5 5 Elbow Flexion C5 5 5 Elbow Extension C7 5 5 Wrist Extension C6 5 5 Finger Flexion C8 4 5 Finger Abduction T1 4 5 Hip Flexion L2 5 5 Knee Flexion L5/S1 5 5 Knee Extension L3 5 5 Dorsiflexion L4 5 5 Plantarflexion S1 5 5 EHL Extension L5 5 5 Neuro: Cranial Nerves Cranial Nerves 2-12 are grossly intact DTR's No hyperreflexia Segura Normal Finger to Nose Slowed bilaterally Rapid Alternating Movements Slowed bilaterally Upper Extremity Tone Normal Lower Extremity Tone Normal Upper Extremity Sensation Intact to light touch bilaterally Lower Extremity Sensation Intact to light touch bilaterally Clonus Negative Bilaterally Memory/Cognition/Speech Speech fluent in conversation but slowed processing speed and psychomotor retardation. Otherwise A&Ox4. Intake/Output Summary: Intake/Output Summary (Last 24 hours) at 03/31/17 1703 Last data filed at 03/31/17 1700 Gross per 24 hour Intake 1699.08 ml Output 289 ml Net 1410.08 ml No Data Recorded No Data Recorded Basic Metabolic Profile Lab Results Component Value Date/Time NA 133 (L) 03/31/2017 02:10 PM K 3.9 03/31/2017 02:10 PM CA 7.4 (L) 03/31/2017 02:10 PM CL 103 03/31/2017 02:10 PM CO2 18 (L) 03/31/2017 02:10 PM Lab Results Component Value Date/Time BUN 30 (H) 03/31/2017 02:10 PM CR 6.29 (H) 03/31/2017 02:10 PM GLU 199 (H) 03/31/2017 02:10 PM CBC w/Diff Lab Results Component Value Date/Time WBC 15.7 (H) 03/31/2017 04:11 AM RBC 3.80 (L) 03/31/2017 04:11 AM HGB 10.4 (L) 03/31/2017 04:11 AM HCT 30.6 (L) 03/31/2017 04:11 AM MCV 80.5 03/31/2017 04:11 AM MCH 27.4 03/31/2017 04:11 AM RDW 15.7 (H) 03/31/2017 04:11 AM PLTCT 227 03/31/2017 04:11 AM MPV 8.6 03/31/2017 04:11 AM Lab Results Component Value Date/Time NEUT 80 (H) 03/31/2017 04:11 AM ANC 12.50 (H) 03/31/2017 04:11 AM LYMA 13 (L) 03/31/2017 04:11 AM ALC 2.10 03/31/2017 04:11 AM ADAM 7 03/31/2017 04:11 AM AMC 1.00 (H) 03/31/2017 04:11 AM EOSA 0 03/31/2017 04:11 AM AEC 0.00 03/31/2017 04:11 AM BASA 0 03/31/2017 04:11 AM ABC 0.00 03/31/2017 04:11 AM Radiology: Chest single view: IMPRESSION Mild left basilar atelectasis. Finalized on 03/31/2017 8:27 AM. Associated attestation - Vijay Snell MD - 04/01/2017 10:21 PM BAND SAW OPERATOR Rehabilitation Medicine Attending Physician Attestation: Agree with resident. Antoine Sung is a pleasant 51 y.o. male with PMH of DM Type 2, ESRD on HD, and anemia who was transferred to [facility] from [facility] on 2017 for status epilepticus after originally being admitted with concerns for DKA and UTI. The patient was originally intubated and treated with Lorazepam prior to transfer, and ultimately treated in NeICU for UTI and seizures with Keppra. He has since been extubated and continues to undergo treatment for what was clarified as hyperglycemic hyperosmolar non-ketotic coma with co- management by Endocrinology. The patient has experienced encephalopathy related to seizures (+/- postictal state), with resulting generalized weakness and resulting cognitive and functional deficits as noted. He seems to have medical complexity and goals with PT and OT for acute inpatient rehabilitation. He would also benefit from cognitive evaluation/treatments by HR INTERN at this encounter or the next. Recommend continued therapies, while the primary team continues to manage the patient and prepares the patient for discharge. Given that the patient reports his son does work registered phlebotomist part time, he will need to be functioning at modified independence upon discharge home. Discussed with the patient. Thank you for this consultation. Please call with questions/ concerns. I personally performed antunez portions of the history and exam. I discussed the case with the resident and concur with the resident's documentation of history, physical assessment and treatment plan unless otherwise noted. Vijay Snell MD * Yvonne Castillo MD - 03/31/2017 3:35 PM BAND SAW OPERATOR Associated Order(s): CONSULT ENDOCRINOLOGY PHYSICIAN Formatting of this note may be different from the original. Endocrinology Consult Admission Date: 03/31/2017 Active Problems: Stage 5 chronic kidney disease on chronic dialysis ([facility]) Type 2 diabetes mellitus with hyperglycemia, with long-term current use of insulin ([facility]) HTN (hypertension) PVD (peripheral vascular disease) ([facility]) Diabetic Charcot foot ([facility]) Anemia in chronic kidney disease, on chronic dialysis ([facility]) Reason for consult: Type: Co-management w/signed orders Assessment: DM2 uncontrolled w/ hyperglycemia, with renal complications, ESRD with mcc use of insulin HTN CKD V, ESRD on HD Charcot Foot Recommendations: - Patient has hyperglycemia, not DKA, Beta Hydroxy Butyrate <1 at peak - Continue insulin drip overnight, will monitor need and transition to basal and cf based on need off of dextrose fluids tomorrow - will adjust insulin based on blood glucose - if possible obtain patient's home regimen, not in chart and family unsure other than basal and oral medication. Thank you for this consult; we will continue to follow Patient was seen and discussed with Dr. Castillo ATTESTATION I personally performed the antunez portions of the E/M visit, discussed case with resident and concur with resident documentation of history, physical exam, assessment, and treatment plan unless otherwise noted. Additions by me are in italics. Unable to obtain history from the patient as he was nonverbal during our visit. No family present in the room. We will transition off insulin gtt tomorrow. Staff name: Yvonne Castillo MD Date: 03/31/2017 __ History of Present Illness: Antoine Sung is a 51 y.o. male who was transferred to [facility] for status epilepticus. The patient was found to be hyperglycemic after admission and he was placed on an insulin drip for tight control and endocrinology was consulted. Patient non-verbal when assessed, A1C noted to be >14 and per family patient is on long acting and some sort of oral medication, though they did not know dosages or which medication. Past Medical History: Diagnosis Date Anemia Charcot foot due to diabetes mellitus (HCC) DM (diabetes mellitus) (HCC) HTN (hypertension) PVD (peripheral vascular disease) (HCC) Renal failure No past surgical history on file. No family history on file. Unknown per son Social History Social History Marital status: Spouse name: N/A Number of children: N/A Years of education: N/A Social History Main Topics Smoking status: Not on file Smokeless tobacco: Not on file Alcohol use Not on file Drug use: Not on file Sexual activity: Not on file Other Topics Concern Not on file Social History Narrative 03/31/17 - lives in a home with . Has a son. Name on file for is Casandra Sung [phone] Immunizations (includes history and patient reported): There is no immunization history on file for this patient. Allergies: Review of patient's allergies indicates no known allergies. Medications: Prescriptions Prior to Admission Medication Sig amLODIPine (NORVASC) 10 mg tablet Take 10 mg by mouth daily. ascorbic acid (VITAMIN C) 500 mg tablet Take 500 mg by mouth daily. ferrous sulfate (FEOSOL, FEROSUL) 325 mg (65 mg iron) tablet Take 325 mg by mouth daily. Take on an empty stomach at least 1 hour before or 2 hours after food. insulin glargine (LANTUS SOLOSTAR, BASAGLAR) 100 unit/mL (3 mL) injection PEN Inject 10 Units under the skin at bedtime daily. metFORMIN (GLUCOPHAGE) 500 mg tablet Take 500 mg by mouth twice daily with meals. metOLazone (ZAROXOLYN) 2.5 mg tablet Take 2.5 mg by mouth daily. metoprolol XL (TOPROL XL) 100 mg extended release tablet Take 100 mg by mouth daily. Review of Systems: A 14 point review of system was unable to obtain due to mental status Physical Exam: Vital Signs: Last Filed In 24 Hours Vital Signs: 24 Hour Range BP: 146/76 (03/31 1500) Temp: 37.4 C (99.4 F) (03/31 1434) Pulse: 97 (03/31 1500) Respirations: 20 PER MINUTE (03/31 1500) SpO2: 99 % (03/31 1500) O2 Delivery: None (Room Air) (03/31 1500) SpO2 Pulse: 97 (03/31 1500) Height: 170.2 cm (67") (03/31 0225) BP: (100-175)/(57-95) ABP: (86-170)/(43-77) Temp: [34 C (93.2 F)-37.4 C (99.4 F)] Pulse: [63-101] Respirations: [0 PER MINUTE-27 PER MINUTE] SpO2: [99 %-100 %] O2 Delivery: None (Room Air) Intensity Pain Scale 0-10 (Pain 1): 0 (03/31/17 1200) General: Drowsy, noncooperative, no distress, appears older than stated age Head: Normocephalic, without obvious abnormality, atraumatic Eyes: closed ENT: Moist mucous membranes, tongue protruding from mouth Lungs: Clear to auscultation bilaterally Heart: Regular rate and rhythm Abdomen: Soft, non-tender. Extremities: Severely decreased ROM in ankles R>L Skin: No rash or lesions noted Pulses: 2+ and symmetric REGIONAL ECONOMIC LIAISON: Disoriented, unable to assess Lab: Recent Labs 03/31/17 0245 03/31/17 0411 03/31/17 0554 03/31/17 0800 03/31/17 1000 NA 128* 127* 129* 132* 133* K 3.2* 3.3* 2.9* 3.6 3.3* CL 95* 95* 100 102 104 CO2 21 18* 19* 20* 20* GAP 12 14* 10 10 9 BUN 29* 30* 29* 31* 30* CR 6.51* 6.34* 6.16* 6.38* 6.21* GLU 230* 241* 244* 176* 91 CA 7.4* 7.5* 6.9* 7.5* 7.6* ALBUMIN 3.4* 3.5 -- -- -- MG 2.2 2.1 1.8 1.9 1.9 PO4 3.1 3.0 2.5 1.7* 1.6* HGBA1C 14.7* -- -- -- -- Recent Labs 03/31/17 0245 03/31/17 0411 03/31/17 1000 WBC 10.4 15.7* -- HGB 10.5* 10.4* -- HCT 31.3* 30.6* -- PLTCT 206 227 -- INR 0.9 -- -- PTT 19.9* -- -- AST 16 16 -- ALT 7 7 -- ALKPHOS 128* 132* -- TNI 0.10* -- 0.10* Estimated Creatinine Clearance: 15.5 mL/min (based on Cr of 6.21). Vitals: 03/31/17 0225 Weight: 77.9 kg (171 lb 11.8 oz) Glucose, POC Date/Time Value Ref Range Status 03/31/2017 1502 161 (H) 70 - 100 MG/DL Final 03/31/2017 1407 200 (H) 70 - 100 MG/DL Final 03/31/2017 1301 194 (H) 70 - 100 MG/DL Final 03/31/2017 1148 133 (H) 70 - 100 MG/DL Final 03/31/2017 1121 124 (H) 70 - 100 MG/DL Final 03/31/2017 1036 100 70 - 100 MG/DL Final 03/31/2017 1018 95 70 - 100 MG/DL Final 03/31/2017 0959 96 70 - 100 MG/DL Final Radiology and other Diagnostics Review: Pertinent radiology reviewed. Gus Hutchison Endocrine Resident Pager # [phone] 03/31/2017 * Aaron Westbrook - 03/31/2017 2:09 PM BAND SAW OPERATOR Associated Order(s): CONSULT NEPHROLOGY PHYSICIAN Formatting of this note may be different from the original. Renal Consult Antoine Sung Admission Date: 03/31/2017 Assessment and Plan Active Problems: Stage 5 chronic kidney disease on chronic dialysis (HCC) Type 2 diabetes mellitus with hyperglycemia, with long-term current use of insulin (HCC) HTN (hypertension) PVD (peripheral vascular disease) ([facility]) Diabetic Charcot foot (HCC) Anemia in chronic kidney disease, on chronic dialysis (HCC) Antoine Sung is a 51 y.o. male 1. ESRD -HD MWF 4 hrs [facility], [place] -EDW 72 kg -Access tunneled HD catheter -primary disease T2DM 2. Status epilepticus 3. Encephalopathy 4. Hyperglycemia 5. UTI 6. Anemia of CKD Recommendations: -please discontinue IVF now as patient makes very little urine and is not volume depleted -patient is not in DKA as he is not acidotic and b-hydroxybutyrate is 0.8 ( typical levels for DKA are > 3.0) -HD tomorrow given no urgent indication and lack of staff availability -neither lorazepam nor midazolam are removed by hemodialysis -will revert to MWF schedule when able -will obtain records from outpatient HD unit -renal HD diet or renal formulary tube feeds -strict I&O Aaron Westbrook Pager [phone] History Reason for Consult: ESRD HPI: Antoine Sung is a 51 y.o. male with ESRD, T2DM, HTN, PVD who was transferred to [facility] for further evaluation of seizures. He was admitted on to [facility] in [place] for possible stroke, but evaluation was negative and he was discharged the following day. He went to dialysis on Wednesday, then later that day began to have seizures at home. He was taken to local ED at was transferred to [facility]. His BG was 764, and lactic acid was 6.87. He was given 1500 mL of fluid, IV insulin, and transferred. He was admitted to the neuro ICU unit, loaded with keppra, and started on treatment for DKA. EEG and MRI are pending. He was successfully extubated this am, but remains very somnolent. Past Medical History Past Medical History: Diagnosis Date Anemia Charcot foot due to diabetes mellitus (HCC) DM (diabetes mellitus) (HCC) HTN (hypertension) PVD (peripheral vascular disease) (HCC) Renal failure No past surgical history on file. Family History Family history reviewed; non-contributory Social History Social History Social History Marital status: Spouse name: N/A Number of children: N/A Years of education: N/A Social History Main Topics Smoking status: Not on file Smokeless tobacco: Not on file Alcohol use Not on file Drug use: Not on file Sexual activity: Not on file Other Topics Concern Not on file Social History Narrative 03/31/17 - lives in a home with . Has a son. Name on file for is Casandra Sung [phone] Medications MEDS cefTRIAXone (ROCEPHIN) IV 1 g Intravenous Q24H* docusate 100 mg Oral BID heparin (porcine) 5,000 Units Subcutaneous Q8H [START ON 04/01/2017] levETIRAcetam (KEPPRA) IVPB 1,000 mg Intravenous QDAY(12) levETIRAcetam (KEPPRA) IVPB 500 mg Intravenous ONCE metoprolol tartrate 25 mg Oral BID milk of magnesia (CONC) 10 mL Oral QDAY potassium phosphate IVPB (std) 24 mmol Intravenous ONCE senna/docusate 1 tablet Oral BID sodium chloride 0.9% (NS) NOW IV MEDS dextrose 5 % & 0.45% NaCl infusion 125 mL/hr at 03/31/17 0513 insulin regular (NOVOLIN R) 100 Units in sodium chloride 0.9% (NS) 100 mL IV drip (std conc) 3.5 Units/hr (03/31/17 1304) Prn acetaminophen Q4H PRN, hydrALAZINE Q6H PRN, labetalol (NORMODYNE; TRANDATE ) injection Q15 MIN PRN, magnesium sulfate PRN AND Magnesium PRN AND Notify Physician Ongoing, ondansetron (ZOFRAN) IV Q6H PRN, sodium phosphate IVPB PRN (Unindentured Apprentice from Rx) OR sodium phosphate IVPB PRN (Unindentured Apprentice from Rx) * *OR sodium phosphate IVPB PRN (Unindentured Apprentice from Rx) HOME MEDS Prior to Admission Medications Prescriptions Last Dose Informant Patient Reported? Taking? amLODIPine (NORVASC) 10 mg tablet Past Week Family Yes Yes Sig: Take 10 mg by mouth daily. ascorbic acid (VITAMIN C) 500 mg tablet Past Week Yes Yes Sig: Take 500 mg by mouth daily. ferrous sulfate (FEOSOL, FEROSUL) 325 mg (65 mg iron) tablet Past Week Yes Yes Sig: Take 325 mg by mouth daily. Take on an empty stomach at least 1 hour before or 2 hours after food. insulin glargine (LANTUS SOLOSTAR, BASAGLAR) 100 unit/mL (3 mL) injection PEN Past Week Family Yes Yes Sig: Inject 10 Units under the skin at bedtime daily. metFORMIN (GLUCOPHAGE) 500 mg tablet Past Week Family Yes Yes Sig: Take 500 mg by mouth twice daily with meals. metOLazone (ZAROXOLYN) 2.5 mg tablet Past Week Family Yes Yes Sig: Take 2.5 mg by mouth daily. metoprolol XL (TOPROL XL) 100 mg extended release tablet Past Week Family Yes Yes Sig: Take 100 mg by mouth daily. Facility-Administered Medications: None Review of Systems Constitutional: negative Eyes: negative Ears, nose, mouth, throat, and face: negative Respiratory: negative Cardiovascular: negative Gastrointestinal: negative Genitourinary:negative Integument/breast: negative Hematologic/lymphatic: negative Musculoskeletal:negative Neurological: negative Endocrine: negative Physical Exam Vital Signs: Last Filed In 24 Hours Vital Signs: 24 Hour Range BP: 144/73 (03/31 1300) Temp: 37.1 C (98.8 F) (03/31 1200) Pulse: 83 (03/31 1300) Respirations: 23 PER MINUTE (03/31 1300) SpO2: 100 % (03/31 1300) O2 Delivery: None (Room Air) (03/31 1200) SpO2 Pulse: 83 (03/31 1300) Height: 170.2 cm (67") (03/31 224) BP: (100-175)/(57-95) ABP: (86-169)/(43-68) Temp: [34 C (93.2 F)-37.1 C (98.8 F)] Pulse: [63-87] Respirations: [0 PER MINUTE-27 PER MINUTE] SpO2: [100 %] O2 Delivery: None (Room Air) Intensity Pain Scale 0-10 (Pain 1): 0 (03/31/17 1200) Vitals: 01/17/18 0225 Weight: 77.9 kg (171 lb 11.8 oz) Intake/Output Summary (Last 24 hours) at 03/31/17 1409 Last data filed at 03/31/17 1300 Gross per 24 hour Intake 1163.6 ml Output 217 ml Net 946.6 ml Gen: somnolent, no distress HEENT: Sclera normal CV: no JVD, S1 and S2 normal, no rubs, murmurs or gallops Pulm: Clear to Auscultation bilateral , no wheezes GI: BS+ x4, non-tender to palpation Neuro: opens eyes to voice, PERRL Ext: trace edema, nontender Skin: no rash, dry Labs Recent Labs 03/31/17 0245 03/31/17 0411 03/31/17 0554 03/31/17 0800 03/31/17 1000 NA 128* 127* 129* 132* 133* K 3.2* 3.3* 2.9* 3.6 3.3* CL 95* 95* 100 102 104 CO2 21 18* 19* 20* 20* GAP 12 14* 10 10 9 BUN 29* 30* 29* 31* 30* CR 6.51* 6.34* 6.16* 6.38* 6.21* GLU 230* 241* 244* 176* 91 CA 7.4* 7.5* 6.9* 7.5* 7.6* ALBUMIN 3.4* 3.5 -- -- -- MG 2.2 2.1 1.8 1.9 1.9 PO4 3.1 3.0 2.5 1.7* 1.6* HGBA1C 14.7* -- -- -- -- Recent Labs 03/31/17 0245 03/31/17 0411 03/31/17 1000 WBC 10.4 15.7* -- HGB 10.5* 10.4* -- HCT 31.3* 30.6* -- PLTCT 206 227 -- INR 0.9 -- -- PTT 19.9* -- -- AST 16 16 -- ALT 7 7 -- ALKPHOS 128* 132* -- TNI 0.10* -- 0.10* Estimated Creatinine Clearance: 15.5 mL/min (based on Cr of 6.21). Vitals: 03/31/17 0225 Weight: 77.9 kg (171 lb 11.8 oz) Recent Labs 03/31/17 0327 03/31/17 0800 PHART 7.33* 7.36 PO2ART 147* 121* Radiology Pertinent radiology reviewed. Associated attestation - Lola Lozano DO - 03/31/2017 2:53 PM BAND SAW OPERATOR Formatting of this note may be different from the original. ATTESTATION Mr. Sung is a 51 year old male with history of ESRD on HD who presented with seizures. He was not responsive this PM when I saw him. He has no edema or JVD. His blood pressure was on the low side. His labs look like he had recent dialysis. He has no acute needs for dialysis today and we will plan on dialysis tomorrow. I personally performed the antunez portions of the E/M visit, discussed case with the fellow and concur with fellow documentation of history, physical exam, assessment, and treatment plan unless otherwise noted. Staff name: DO Glen Landaverde Kidist, RN - 03/31/2017 11:48 AM BAND SAW OPERATOR INPATIENT DIABETES EDUCATION TEAM Clinical Excellence Nursing Practice Reason for Consult: DKA Noted consult for diabetes education team. Pt not appropriate today due to recent extubation. Will follow and meet with pt when stable. 1300- Attempted to meet with pt. Pt sleeping, has mitts on. Pt had two family members with him. Per family, pt is known diabetic. Takes insulin at home, unknown dose. hgbA1c 14.5%. Will monitor. Appreciate consult on this patient. If any further needs please consult diabetic nurse educators (Team pager [phone]) Alecia Gonzalez RN, MSN, CMSRN, CDE Pager: [phone] 08:00-4:30 weekdays, If no response, please call team pager [phone]) Office: [phone] Diabetic Education Team office [phone]) in this encounter Miscellaneous Notes * Case Mgmt DC Plan - Valeria Damon - 04/05/2017 6:58 PM BAND SAW OPERATOR Case Management Progress Note NAME:Antoine Sung :1965 AGE: 51 y.o. ADMISSION DATE: 03/31/2017 DAYS ADMITTED: LOS: 5 days Todays Date: 04/05/2017 Plan: Discharge to [facility] Interventions ? Support Support: Pt/Family Updates re:POC or DC Plan, Counseling for Adaptation to Illness ? Info or Referral ? Discharge Planning Discharge Planning: Inpatient Rehabilitation SW spoke to Brien with [facility] that pt is still able to admit tonight. SW informed her pt has not left [facility] as pt recently completed dialysis and is waiting for physician clearance. Maryse stated pt is still able to come. YULIET agreed to update [facility] if pt leaves SW discussed with RN. Team is still waiting lab results and pt/family still hopeful of leaving tonight, if possible. SW provided this SW contact information. SW will remain available to assist with discharge planning. ADDENDUM: YULIET followed up with bedside RN, Kylah. Pt is still waiting results. Pt and family are wanting to discharge tonight, if medically cleared. YULIET spoke to RN. Pt has been cleared for discharge and still wants to discharge tonight. YULIET updated Brien with [facility]. Pt is still able to come tonight. RN report to [phone]- RN aware of report number and will call. DC orders faxed to [phone] ? Medication Needs ? Financial ? Legal ? Other Other/None: No needs identified Disposition ? Discharge Preparation When ready for discharge, who will be responsible for transporting?: w/c van Type of Residence: Private residence Patient expects to be discharged to: Rehab facility Was the patient receiving home care services?: No ? Expected Discharge Expected Discharge Date: 04/05/17 ? Discharge Disposition ? Next Level Care * Case Mgmt DC Plan - Yvonne Barber - 04/05/2017 12:23 PM BAND SAW OPERATOR JIGGER CROWN POUNCING MACHINE OPERATOR NOTE Transfer packet delivered to pt's chart unit per the request of Nadine Villagomez [facility]. Yvonne Barber CMA * Case Mgmt DC Plan - Nadine Villagomez - 04/05/2017 11:36 AM BAND SAW OPERATOR Case Management Progress Note NAME:Antoine Sung :1965 AGE: 51 y.o. ADMISSION DATE: 03/31/2017 DAYS ADMITTED: LOS: 5 days Todays Date: 04/05/2017 Plan: Pt anticipate d/c to [facility] Wednesday today following pt' s dialysis with family providing transportation. Interventions ? Support Support: Pt/Family Updates re:POC or DC Plan, Counseling for Adaptation to Illness ? Info or Referral ? Discharge Planning Discharge Planning: Inpatient Rehabilitation Covering YULIET called [facility] to confirm if there was an open bed for pt. [facility] confirmed there is a bed open. [facility] asked about pt's transportation for HD as the facility will have to utilize the transportation while pt is inpt. SW reviewed previous notes discussed that [facility] provides pt's HD transportation but the pt's son is back up. [facility] asked what time pt has dialysis today. SW confirmed pt has already completed dialysis for today. June, [facility], stated she will contact pt's son about transportation then call SW back. RN report to [phone] Doc to Doc: [phone] DC orders faxed: [phone] YULIET requested [facility] [place] to print and place transfer packet into pt's wall unit. SW appreciates the assistance. Update 1393 SW spoke to June, [facility], to discuss transportation. YULIET agreed to meet with pt to see about contact information for additional family. Pt was off unit at dialysis but familyX2 at bedside. YULIET discussed with family the dc plan. Pt's family in agreement to transport pt to [facility] this evening following pt's dialysis. Pt's brother, Nate, requested directions to facility. SW agreed to provide directions. YULIET updated June that pt's family is at bedside and agreeable to transport this evening. YULIET paged primary team. YULIET updated primary team pt can dc today. Team stated pt can dc after pt's HD and blood results are back. Update [id number] YULIET provided pt's brother, Nate, with driving directions to [facility]. YULIET updated pt's RN about dc today with family providing transportation. RN stated team wants to recheck pt's BMP prior to dc. RN stated the moment pt returns from dialysis she will do the blood draw. ? Medication Needs ? Financial ? Legal ? Other Other/None: No needs identified Disposition ? Discharge Preparation When ready for discharge, who will be responsible for transporting?: w/c crispin Type of Residence: Private residence Patient expects to be discharged to: Rehab facility Was the patient receiving home care services?: No ? Expected Discharge Expected Discharge Date: 04/05/17 ? Discharge Disposition ? Next Level Care Nadine Villagomez [phone] * Med Student Progress Note - Meagan Sebastian MS - 04/05/2017 7:23 AM BAND SAW OPERATOR Formatting of this note may be different from the original. Neurology Wards Antoine Sung Admission Date: 03/31/2017 Assessment and Plan Active Problems: Stage 5 chronic kidney disease on chronic dialysis (HCC) Type 2 diabetes mellitus with hyperglycemia, with long-term current use of insulin (HCC) HTN (hypertension) PVD (peripheral vascular disease) ([facility]) Diabetic Charcot foot (HCC) Anemia in chronic kidney disease, on chronic dialysis (HCC) Antoine Sung is a 51 y.o. male with a history of ESRD on HD (MWF), T2DM on insulin, HTN, and chronic anemia who presented after a witnessed seizure, found to have hyperglycemic hyperosmolar non-ketotic coma. # Seizure -- Suspect this is 2/2 poorly controlled diabetes & hyperglycemia -- Started on Keppra 750 mg BID Plan: -- Continue Keppra 750mg BID -- Schedule follow up appointment with Neurology # T2DM -- Taking 10U lantus & metformin WATER QUALITY ANALYST -- Last HbA1c: 14.7 Plan: -- Dietitian & nutrition consult -- Endocrine consult; appreciate their recommendations # ESRD on HD -- Dialysis this morning -- Na 131 this morning Plan: -- Recheck BMP prior to discharge -- Optimize electrolytes & renal function -- Continue HD outpatient on MWF -- Renal consulted; appreciate their recommendations Dispo: Inpatient Rehab Facility in [place], [place] Meagan Sebastian MS Subjective HPI: Antoine Sung is a 51 y.o. male with a history of ESRD on HD (MWF), T2DM on insulin, HTN, and chronic anemia who presented after a witnessed seizure, found to have hyperglycemic hyperosmolar non-ketotic coma. O/N Events: No acute events overnight. This morning, Mr. Sung was sitting up in a chair next to his bed, about to eat breakfast. Feeling good this morning & wondering when he'll be allowed to leave today. He is planning on going down for dialysis after noon. Overall, says he feels like he's still recovering from his seizure. Feels like his progress is slow. No complaints of pain, n/v, chest pain, abdominal pain, fever, or chills. Past Medical History Past Medical History: Diagnosis Date Anemia Charcot foot due to diabetes mellitus (HCC) DM (diabetes mellitus) (HCC) HTN (hypertension) PVD (peripheral vascular disease) (HCC) Renal failure No past surgical history on file. Family History No family history on file. Social History Social History Social History Marital status: Spouse name: N/A Number of children: N/A Years of education: Graduated from high school Social History Main Topics Smoking status: Never Smoker Smokeless tobacco: Never Used Alcohol use Not on file Drug use: Not on file Sexual activity: Not on file Other Topics Concern Not on file Social History Narrative 03/31/17 - lives in a home with . Has a son. Name on file for is Casandra Sung [phone] Medications MEDS amLODIPine 10 mg Oral QDAY anticoagulant sodium citrate 1-5 mL Intra-catheter ONCE docusate 100 mg Oral BID heparin (porcine) 5,000 Units Subcutaneous Q8H insulin aspart 0-14 Units Subcutaneous 5 X Day insulin glargine 10 Units Subcutaneous QDAY levETIRAcetam 750 mg Oral BID metoprolol XL 100 mg Oral QDAY milk of magnesia (CONC) 10 mL Oral QDAY senna/docusate 1 tablet Oral BID IV MEDS Prn acetaminophen Q6H PRN 1,000 mg at 04/04/172356, ondansetron ( ZOFRAN) IV Q6H PRN 4 mg at 04/01/172008, sodium chloride 0.9% (NS) IP Dialysis PRN, sodium chloride 0.9% (NS) IP Dialysis PRN, sodium chloride 0.9% (NS) IP Dialysis PRN Objective Vital Signs: Last Filed In 24 Hours Vital Signs: 24 Hour Range BP: 120/72 (04/05 554) Temp: 36.6 C (97.9 F) (04/05 554) Pulse: 65 (04/05 554) Respirations: 15 PER MINUTE (04/05 554) SpO2: 99 % (04/05 554) O2 Delivery: None (Room Air) (04/05 554) Height: 172.7 cm (68") (04/04 1658) BP: (120-140)/(72-88) Temp: [36.6 C (97.9 F)-37.2 C (98.9 F)] Pulse: [65-73] Respirations: [15 PER MINUTE-18 PER MINUTE] SpO2: [99 %-100 %] O2 Delivery: None (Room Air) Intensity Pain Scale 0-10 (Pain 1): 0 (04/05/17 0300) Vitals: 04/02/17 1004 04/02/17 1344 04/04/17 1659 Weight: 80 kg (176 lb 5.9 oz) 73.8 kg (162 lb 11.2 oz) 73.4 kg (161 lb 13.1 oz) Intake/Output Summary (Last 24 hours) at 04/05/17 0723 Last data filed at 04/05/17 0300 Gross per 24 hour Intake 720 ml Output 230 ml Net 490 ml Physical Exam Constitutional: He appears well-developed and well-nourished. HENT: Head: Normocephalic. Eyes: Conjunctivae and EOM are normal. Pupils are equal, round, and reactive to light. Cardiovascular: Normal rate, regular rhythm and normal heart sounds. Pulmonary/Chest: Effort normal and breath sounds normal. Abdominal: Soft. Bowel sounds are normal. Skin: Skin is warm and dry. Psychiatric: He has a normal mood and affect. Nursing note and vitals reviewed. Neuro: Mental Status: alert, oriented to person/place/time Speech: Normal fluency, comprehension, repetition Cranial Nerves: II Pupils reactive, visual madsen normal III, IV, EOMI, no nystagmus V Sensation nml V1-V3 VII Facial droop present on the right side; normalizes with smiling VIII nml to finger rub IX, X +strong cough XI Equal shoulder shrug XII Tongue midline Muscle/motor: Tone: nml; Bulk: nml SA EF EE WE WF HF KF KE DF PF R 5 5 5 5 5 5 5 5 5 5 L 5 5 5 5 5 5 5 5 5 5 Reflexes: Right Left Biceps 2 2 Brachioradialis 2 2 Patella 0 0 Ankle 0 0 Plantar Absent Absent Sensation: Normal RUE LUE RLE LLE Light Touch Normal Normal diminished diminished Pin Prick x Temperature x Proprioception intact Coordination: Normal Abnormal Right Abnormal Left Finger to Nose x Rapid alternating x Heel to Lee x Gait: Unsteady on feet, requires 1 person assist Labs Recent Labs 04/03/17 0330 04/04/17 0346 04/05/17 0509 NA 134* 133* 131* K 3.6 3.7 3.6 CL 99 98 98 CO2 25 27 23 BUN 13 19 29* CR 4.04* 6.06* 7.34* GLU 183* 152* 152* GAP 10 8 10 GFR 16* 10* 8* MG 2.1 2.3 2.3 CA 8.2* 8.0* 7.8* PO4 3.2 3.7 4.0 Recent Labs 04/03/17 0330 04/04/17 0346 04/05/17 0509 HGB 10.3* 9.8* 10.2* HCT 31.0* 29.6* 29.7* WBC 8.1 7.6 8.5 PLTCT 245 269 287 Radiology Pertinent radiology reviewed. * Care Plan - Adelaide Arrington RN - 04/05/2017 12:29 AM BAND SAW OPERATOR Problem: Falls, High Risk of Goal: Absence of falls-Adult Patient Outcome: Goal Ongoing Patient is a high risk for falls; fall bundle in place * Care Plan - Adelaide Arrington RN - 04/05/2017 12:28 AM BAND SAW OPERATOR Problem: Injury - Risk of, Physical Restraints Goal: Absence of injury while physically restrained Outcome: Goal Achieved Date Met: 04/05/17 N/A Problem: Discharge Planning Goal: Prepared for discharge Outcome: Goal Ongoing Discharge ongoing Problem: Pain Goal: Management of pain Outcome: Goal Ongoing Patient experiencing headache. Tylenol administered; this RN to continue to monitor * Case Mgmt DC Plan - Syl Whiteside - 04/02/2017 12:52 PM BAND SAW OPERATOR Case Management Progress Note NAME:Antoine Sung :1965 AGE: 51 y.o. ADMISSION DATE: 03/31/2017 DAYS ADMITTED: LOS: 2 days Todays Date: 04/02/2017 Plan Anticipate d/c to [facility] Wednesday pending bed availability. Interventions SW reviewed EMR and met with Neuro team for huddle. Anticipate EEG following HD. Endo consulted. ? Support Support: Pt/Family Updates re:POC or DC Plan, Counseling for Adaptation to Illness SW tasked JIGGER CROWN POUNCING MACHINE OPERATOR to send updated clinicals to [facility]. SW tasked JIGGER CROWN POUNCING MACHINE OPERATOR to check w/c van cost to [facility]. ($350). SW attempted to visit pt at bedside to discuss DCP and transportation options, however pt off unit for HD. YULIET spoke with Neuro Team who confirmed that pt would likely be able to d/c following HD today. Update 12:30pm: SW attempted to visit pt at bedside to discuss DCP and transportation options, however pt off unit for HD. Update 1:10pm: SW attempted to visit pt at bedside to discuss DCP and transportation options, however pt off unit for HD. YULIET spoke with assisting YULIET Lara who educated that [facility] is agreeable to pt's currently HD schedule, however they are unable to provide transportation to HD. Update 1:45pm: SW attempted to visit pt at bedside to discuss DCP and transportation options, however pt off unit for HD. SW paged Neuro Team to inquire regarding DCP timeline, as pt still in HD and needs to undergo EEG. Update 2:15pm: SW attempted to visit pt at bedside, however pt currently off unit for HD. Update 2:30pm: SW visited pt at bedside to discuss DCP. Pt remains in agreement with admission to [facility] and verbalized understanding of anticipate d/c timeline. Pt requested that SW speak with his son regarding transportation to IPR and HD, as pt typically utilizing a public transport company for HD. YULIET spoke with pt's son Julio Cesar ([phone]) to update. Julio Cesar verbalized agreement with DCP and is agreeable to be present Wednesday at 11:00am for transportation. YULIET also reviewed that [facility] is unable to provide transportation to [facility] HD, therefore private transportation will need to be arranged. Pt's son Julio Cesar endorsed that family would be able to provide transportation to HD during rehab, if needed. However, currently pt has ongoing scheduled transportation through [facility]. Julio Cesar educated that he will speak with [facility] to determine their ability to provide transportation while at rehab to determine appropriate support. YULIET left message for June ([phone]) at [facility] to update. YULIET received message from Neuro Team stating that EEG is no longer needed and pt stable for d/c now. YULIET spoke with Evie at [facility] to update. June educated that [facility] just filled their last bed and will not have a bed available until Wednesday. YULIET spoke with Agustina at [facility] and they have no bed availability for admission. YULIET spoke with Neuro Team to update. YULIET spoke with pt's son Julio Cesar to update. Julio Cesar agreeable to tentative DCP on Wednesday and remains in agreement with providing transportation. Julio Cesar will either call this SW this evening or Wednesday with confirmed transportation time for Wednesday. YULIET visited pt at bedside to update. Pt verbalized understanding of DCP and expressed hope that he will progress over the weekend and be safe to d/c home on Wednesday. YULIET spoke with Neuro Team to update. YULIET spoke with bedside RN to update. ? Info or Referral ? Discharge Planning Discharge Planning: Inpatient Rehabilitation See Support Section ? Medication Needs ? Financial ? Legal ? Other Other/None: No needs identified Disposition ? Discharge Preparation When ready for discharge, who will be responsible for transporting?: w/c van Type of Residence: Private residence Patient expects to be discharged to: Rehab facility ? Expected Discharge Expected Discharge Date: 04/02/17 ? Discharge Disposition ? Next Level Care Sly Whiteside LMSW Phone: [phone] Pager: [phone] * Case Mgmt DC Plan - Yvonne Barber - 04/02/2017 11:44 AM BAND SAW OPERATOR JIGGER CROWN POUNCING MACHINE OPERATOR NOTE Dialysis flow sheet faxed to [facility] in [place] @ per request of Charlene BAUER. Yvonne Barber Hogshead Stripper * Case Mgmt DC Plan - Charlene Camacho RN - 04/02/2017 11:07 AM BAND SAW OPERATOR UTM sent task to Dior Barber [facility] with the following request: Please send dialysis flow sheets to [facility] in [place] at fax [phone]. Appreciate assistance with same. Charlene SOTON, RN, ACM Integrated Nurse Gas Collection System Operator Neurology Service Pager: [phone] * Case Mgmt DC Plan - Princess Lara - 04/02/2017 9:39 AM BAND SAW OPERATOR Case Management Progress Note NAME:Antoine Sung :1965 AGE: 51 y.o. ADMISSION DATE: 03/31/2017 DAYS ADMITTED: LOS: 2 days Todays Date: 04/02/2017 Plan Discharge to [facility] when medically stable. Interventions ? Support ? Info or Referral ? Discharge Planning Discharge Planning: Inpatient Rehabilitation SW assisting primary SW Dior Whiteside for ongoing d/c planning, with anticipated d /c to IPR setting. SW followed up on pending IPR referral at [facility] and spoke with liaison, June -cell. Facility liaison indicates she has not yet received updated notes, but will contact assisting SW via work cell once decision has been made regarding acceptance. Facility does not admit on Saturdays, but would admit on Wednesday if not able to to admit today. SW faxed PT/OT evaluations, Rehab consult, and MAR to facility at , per request. SW printed transfer packet and placed outside room with paper chart. 9:50-- SW received call from June at [facility] IPR re: facility [facility] has accepted pt for admit, liaison continues to work on coordinating a plan for pt's transportation to/from HD at [facility]. Per June, facility willing to accept pt today even if after standard business hours, pending pt's HD schedule for today and ability to coordinate discharge transportation. Updated primary SW with the above information. ? Medication Needs ? Financial ? Legal ? Other Disposition ? Discharge Preparation When ready for discharge, who will be responsible for transporting?: w/c van Type of Residence: Private residence Patient expects to be discharged to: Rehab facility ? Expected Discharge Expected Discharge Date: 04/02/17 ? Discharge Disposition ? Next Level Care Dolores Lara LMSW, [facility] [phone] * Case Mgmt DC Plan - Yvonne Barber - 04/02/2017 9:21 AM BAND SAW OPERATOR Patient Transportation Quote Request Received request from JUAN Viera to check on quotes for wheelchair van to transfer pt to [facility], [address] [place] [address]. [place] [facility] [phone]: $325 Yvonne Barber Hogshead Stripper For further assistance please contact [facility] *[phone] * Med Student Progress Note - Meagan Sebastian MS - 04/02/2017 7:19 AM BAND SAW OPERATOR Formatting of this note may be different from the original. Neurology Wards [facility] Admission Date: 03/31/2017 Assessment and Plan Active Problems: Stage 5 chronic kidney disease on chronic dialysis ([facility]) Type 2 diabetes mellitus with hyperglycemia, with long-term current use of insulin (HCC) HTN (hypertension) PVD (peripheral vascular disease) ([facility]) Diabetic Charcot foot ([facility]) Anemia in chronic kidney disease, on chronic dialysis ([facility]) Antoine Sung is a 51 y.o. male with a history of ESRD on HD (MWF), T2DM on insulin, HTN, and chronic anemia who presented after a witnessed seizure, found to have hyperglycemic hyperosmolar non-ketotic coma. 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 male with a history of ESRD on HD (MWF), T2DM on insulin, HTN, and chronic anemia who presented after a witnessed seizure, found to have hyperglycemic hyperosmolar non-ketotic coma. O/N Events: Hypertensive episodes with SBPs up to 187. Given metoprolol 50mg, hydralazine PO 10mg, & Tylenol 1g for associated headache. This morning, patient was down in dialysis when I went to see him. The patient' s nurse reported that he was feeling much better today with an improved mood & affect. He was able to eat 75% of breakfast without any nausea. Metoprolol was held this morning since patient is often hypotensive after dialysis. Past Medical History Past Medical History: Diagnosis Date Anemia Charcot foot due to diabetes mellitus (HCC) DM (diabetes mellitus) ([facility]) HTN (hypertension) PVD (peripheral vascular disease) ([facility]) Renal failure No past surgical history on file. Family History No family history on file. Social History Social History Social History Marital status: Spouse name: N/A Number of children: N/A Years of education: N/A Social History Main Topics Smoking status: Not on file Smokeless tobacco: Not on file Alcohol use Not on file Drug use: Not on file Sexual activity: Not on file Other Topics Concern Not on file Social History Narrative 03/31/17 - lives in a home with . Has a son. Name on file for is Casandra Sung [phone] Medications MEDS amLODIPine 10 mg Oral QDAY anticoagulant sodium citrate 1-5 mL Intra-catheter ONCE docusate 100 mg Oral BID heparin (porcine) 5,000 Units Subcutaneous Q8H insulin aspart 0-7 Units Subcutaneous ACHS insulin glargine 10 Units Subcutaneous QDAY levETIRAcetam 750 mg Oral BID metoprolol XL 100 mg Oral QDAY milk of magnesia (CONC) 10 mL Oral QDAY senna/docusate 1 tablet Oral BID IV MEDS Prn acetaminophen Q6H PRN, ondansetron (ZOFRAN) IV Q6H PRN 4 mg at 2009, sodium chloride 0.9% (NS) IP Dialysis PRN, sodium chloride 0.9% (NS ) IP Dialysis PRN 300 mL at 04/02/17 1010, sodium chloride 0.9% (NS) IP Dialysis PRN Objective Vital Signs: Last Filed In 24 Hours Vital Signs: 24 Hour Range BP: 183/82 (04/02 329) Temp: 36.9 C (98.5 F) (04/02 329) Pulse: 90 (04/02 329) Respirations: 19 PER MINUTE (04/02 329) SpO2: 100 % (04/02 329) O2 Delivery: None (Room Air) (04/02 329) SpO2 Pulse: 91 (04/02 0024) BP: (183-187)/(82-87) ABP: (94-162)/(46-74) Temp: [36.6 C (97.9 F)-37.1 C (98.8 F)] Pulse: [80-92] Respirations: [0 PER MINUTE-32 PER MINUTE] SpO2: [98 %-100 %] O2 Delivery: None (Room Air) Vitals: 03/31/17 0225 04/01/17 0512 04/02/170 Weight: 77.9 kg (171 lb 11.8 oz) (S) 76.1 kg (167 lb 12.3 oz) 79.2 kg (174 lb 9.7 oz) Intake/Output Summary (Last 24 hours) at 04/02/17 07 Last data filed at 04/02/17 0330 Gross per 24 hour Intake 220 ml Output 1785 ml Net -1565 ml Physical Exam Deferred; patient was in dialysis this morning Labs Recent Labs 03/31/17 0800 03/31/17 1000 03/31/17 1410 04/01/17 0400 04/02/17 0320 NA 132* 133* 133* 135* 134* K 3.6 3.3* 3.9 3.7 3.7 CL 102 104 103 105 100 CO2 20* 20* 18* 19* 22 BUN 31* 30* 30* 31* 18 CR 6.38* 6.21* 6.29* 7.13* 4.53* GLU 176* 91 199* 135* 280* GAP 10 9 12 11 12 GFR 9* 10* 9* 8* 14* MG 1.9 1.9 1.8 1.8 2.0 CA 7.5* 7.6* 7.4* 7.6* 7.6* PO4 1.7* 1.6* -- 3.8 4.0 Recent Labs 03/31/17 0245 03/31/17 0411 04/01/17 0400 ALKPHOS 128* 132* 95 AST 16 16 13 ALT 7 7 5* TOTPROT 6.5 6.6 5.5* TOTBILI 0.3 0.3 0.3 ALBUMIN 3.4* 3.5 2.7* Recent Labs 03/31/17 0245 03/31/17 0411 04/01/17 0400 04/02/17 0320 HGB 10.5* 10.4* 9.2* 8.9* HCT 31.3* 30.6* 27.1* 26.2* WBC 10.4 15.7* 11.6* 7.7 PLTCT 206 227 207 212 INR 0.9 -- -- -- Recent Labs 03/31/17 0327 03/31/17 0800 PHART 7.33* 7.36 PCO2A 39 34* PO2ART 147* 121* HCO3A 20.1* 19.6* [id number] 98.6 98.2 Radiology Pertinent radiology reviewed. * Transfer - Genoveva Mena APRN - 04/01/2017 3:03 PM BAND SAW OPERATOR Formatting of this note may be different from the original. Neuro Critical Care Transfer Note 04/01/2017 Antoine Sung Admission date: 03/31/2017 Admitting Neuro Premix Operator Concentrate: Dr. Beyer Interval Neuro-hostess: Dr. Crowell Length of stay in ICU: LOS: 1 day Admission diagnosis: intractable seizures Seizure ([facility]) Allergies: Review of patient's allergies indicates no known allergies. Code Status: Full Code ICU problem list: Patient Active Problem List Diagnosis Date Noted Stage 5 chronic kidney disease on chronic dialysis ([facility]) 03/31/2017 Type 2 diabetes mellitus with hyperglycemia, with long-term current use of insulin ([facility]) 03/31/2017 HTN (hypertension) 03/31/2017 PVD (peripheral vascular disease) ([facility]) 03/31/2017 Diabetic Charcot foot ([facility]) 03/31/2017 Anemia in chronic kidney disease, on chronic dialysis ([facility]) 03/31/2017 Antoine Sung is a 51 y.o. male with PMH of DM, renal failure on dialysis, and anemia who presents with seizure to OSH. Transferred to [facility] on 03/31 for possible status. ICU course: Neuro: patient has been seizure free since extubation on 03/31. Started on keppra 500mg daily. Back to neuro baseline per family. Cardiac: troponin had been elevated (peaked at 0.11) but has since trended down. SBP within goal of <160mmHg with resuming of lower dose WATER QUALITY ANALYST metoprolol XL 50mg (instead of 100mg daily); SR on tele. Pulmonary: successfully extubated 03/31 and has remained stable on RA since. GI/: ESRD - on HD MWF WATER QUALITY ANALYST; received dialysis today (04/01) and tolerated well. Nephrology following. Tolerating diet well. Has not had BM since WATER QUALITY ANALYST. Heme: chronic anemia - stable. SQ heparin in place ID: UA on admission concerning for UTI and rocephin initiated - urine Cx back 04/01 with no growth (final) and rocephin D/c'd. Afebrile. Leukocytosis improved. FEN: required K+, Mg replacement, per ICU replacement protocol. Endocrine: Uncontrolled DM2 - takes Levemir 10u qhs WATER QUALITY ANALYST - required insulin gtt on admission but has since been discontinued and will likely start on SQ insulin regimen once tolerating PO diet (per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 0512 - Treatment start, no access problems using right tunneled HD cath.3 hour tx, 3K bath, 1L fluid removal, start weight 76.1kg per bed scale.Patient EDW per outpt orders is 72kg, will start tx as ordered with FR goal at 1L with CritLine in place. Patient denies nausea, vitals stable.Patient reports both his BP will drop and he will cramp if excessive fluid is removed. Will continue to monitor closely. 0620 - Pass care of patient to system configuration specialistPRAVEENA Dunbar. * POC GLUCOSE (04/01/2017 6:05 AM) Component Value Ref Range Glucose, POC 108 (H) 70 - 100 MG/DL Specimen Performing Laboratory MAIN LAB [address] [place] [address] * POC GLUCOSE (04/01/2017 5:03 AM) Component Value Ref Range Glucose, POC 119 (H) 70 - 100 MG/DL Specimen Performing Laboratory MAIN LAB [address] [place] [address] * TROPONIN-I (04/01/2017 4:00 AM) Component Value Ref Range Troponin-I 0.08 (H) 0.0 - 0.05 NG/ML Specimen Performing Laboratory MAIN LAB [address] [place] [address] * PHOSPHORUS (04/01/2017 4:00 AM) Component Value Ref Range Phosphorus 3.8 2.0 - 4.0 MG/DL Specimen Performing Laboratory Blood MAIN LAB [address] [place] [address] * MAGNESIUM (04/01/2017 4:00 AM) Component Value Ref Range Magnesium 1.8 1.6 - 2.6 mg/dL Specimen Performing Laboratory Blood MAIN LAB [address] [place] [address] * IONIZED CALCIUM (04/01/2017 4:00 AM) Component Value Ref Range Ionized Calcium 1.03 1.0 - 1.3 MMOL/L Specimen Performing Laboratory Blood MAIN LAB [address] [place] [address] * COMPREHENSIVE METABOLIC PANEL (04/01/2017 4:00 AM) Component Value Ref Range Sodium 135 (L) [...] Specimen Performing Laboratory Blood MAIN LAB [address] [place] [address] * CBC AND DIFF (04/01/2017 4:00 AM) Component Value Ref Range White Blood Cells 11.6 (H) 4.5 - 11.0 K/UL RBC 3.31 (L) 4.4 - 5.5 M/UL Hemoglobin 9.2 (L) 13.5 - 16.5 GM/DL Hematocrit 27.1 (L) 40 - 50 % MCV 82.0 80 - 100 FL MCH 27.7 26 - 34 PG MCHC 33.8 32.0 - 36.0 G/DL RDW 16.4 (H) 11 - 15 % Platelet Count 207 150 - 400 K/UL MPV 8.8 7 - 11 FL Neutrophils 73 41 - 77 % Lymphocytes 15 (L) 24 - 44 % Monocytes 11 4 - 12 % Eosinophils 1 0 - 5 % Basophils 0 0 - 2 % Absolute Neutrophil Count 8.50 (H) 1.8 - 7.0 K/UL Absolute Lymph Count 1.80 1.0 - 4.8 K/UL Absolute Monocyte Count 1.20 (H) 0 - 0.80 K/UL Absolute Eosinophil Count 0.10 0 - 0.45 K/UL Absolute Basophil Count 0.00 0 - 0.20 K/UL Specimen Performing Laboratory Blood [facility] [address] [place], [place] [id number] * POC GLUCOSE (04/01/2017 3:58 AM) Component Value Ref Range Glucose, POC 136 (H) 70 - 100 MG/DL Specimen Performing Laboratory [facility] [address] [place] [address] * POC GLUCOSE (04/01/2017 2:54 AM) Component Value Ref Range Glucose, POC 141 (H) 70 - 100 MG/DL Specimen Performing Laboratory [address] [address] * POC GLUCOSE (04/01/2017 1:45 AM) Component Value Ref Range Glucose, POC 118 (H) 70 - 100 MG/DL Specimen Performing Laboratory [address] [address] * POC GLUCOSE (04/01/2017 12:54 AM) Component Value Ref Range Glucose, POC 114 (H) 70 - 100 MG/DL Specimen Performing Laboratory [facility] [address] [place] [address] * POC GLUCOSE (04/01/2017 12:16 AM) Component Value Ref Range Glucose, POC 93 70 - 100 MG/DL Specimen Performing Laboratory [facility] [address] [place] [address] * POC GLUCOSE (03/31/2017 11:57 PM) Component Value Ref Range Glucose, POC 83 70 - 100 MG/DL Specimen Performing Laboratory [facility] [address] [place] [address] * POC GLUCOSE (03/31/2017 11:35 PM) Component Value Ref Range Glucose, POC 80 70 - 100 MG/DL Specimen Performing Laboratory MAIN LAB [address] [place] [address] * POC GLUCOSE (03/31/2017 11:05 PM) Component Value Ref Range Glucose, POC 82 70 - 100 MG/DL Specimen Performing Laboratory MAIN LAB [address] [place] [address] * POC GLUCOSE (03/31/2017 9:57 PM) Component Value Ref Range Glucose, POC 103 (H) 70 - 100 MG/DL Specimen Performing Laboratory MAIN LAB [address] [place] [address] * POC GLUCOSE (03/31/2017 9:12 PM) Component Value Ref Range Glucose, POC 128 (H) 70 - 100 MG/DL Specimen Performing Laboratory MAIN LAB [address] [place] [address] * POC GLUCOSE (03/31/2017 7:55 PM) Component Value Ref Range Glucose, POC 154 (H) 70 - 100 MG/DL Specimen Performing Laboratory MAIN LAB [address] [place] [address] * MRA NECK WO CONTRAST (03/31/2017 6:50 PM) Specimen Performing Laboratory RAD RESULTS Impressions MR brain: 1. Callosal [...] without the administration of gadolinium contrast. 3D fxwl-zn-ighplzffnulz of the [place] was performed without contrast. 3D [...] Interface, Radiant Results - 04/01/2017 5:11 PM BAND SAW OPERATOR EXAM: MRI AND MRA BRAIN, MRA NECK HISTORY: 51 year old male, seizure activity. TECHNIQUE: Multiplanar and multisequence MR imaging of the head was performed without the administration of gadolinium contrast. 3D wkkt-zt-mkzqhn images of the [place] was performed without contrast. 3D [...] without the administration of gadolinium contrast. 3D rpgt-ot-qmmkpknhnhse of the [place] was performed without contrast. 3D [...] Interface, Radiant Results - 04/01/2017 5:11 PM BAND SAW OPERATOR EXAM: MRI AND MRA BRAIN, MRA NECK HISTORY: 51 year old male, seizure activity. TECHNIQUE: Multiplanar and multisequence MR imaging of the head was performed without the administration of gadolinium contrast. 3D bsfd-uh-jikveh images of the [place] was performed without contrast. 3D [...] without the administration of gadolinium contrast. 3D eakx-te-wlbterxeognx of the [place] was performed without contrast. 3D [...] Interface, Radiant Results - 04/01/2017 5:11 PM BAND SAW OPERATOR EXAM: MRI AND MRA BRAIN, MRA NECK HISTORY: 51 year old male, seizure activity. TECHNIQUE: Multiplanar and multisequence MR imaging of the head was performed without the administration of gadolinium contrast. 3D yzld-ik-zpherz images of the [place] was performed without contrast. 3D [...] Maciel M.D. on 04/01/2017 8:24 AM. * POC GLUCOSE (03/31/2017 6:45 PM) Component Value Ref Range Glucose, POC 125 (H) 70 - 100 MG/DL Specimen Performing Laboratory [facility] [address] [place] [address] * POC GLUCOSE (03/31/2017 5:31 PM) Component Value Ref Range Glucose, POC 114 (H) 70 - 100 MG/DL Specimen Performing Laboratory [facility] [address] [place] [address] * POC GLUCOSE (03/31/2017 5:13 PM) Component Value Ref Range Glucose, POC 68 (L) 70 - 100 MG/DL Specimen Performing Laboratory [facility] [address] [place] [address] * POC GLUCOSE (03/31/2017 5:03 PM) Component Value Ref Range Glucose, POC 69 (L) 70 - 100 MG/DL Specimen Performing Laboratory [facility] [address] [place] [address] * POC GLUCOSE (03/31/2017 4:59 PM) Component Value Ref Range Glucose, POC 66 (L) 70 - 100 MG/DL Specimen Performing Laboratory [facility] [address] [place] [address] * POC GLUCOSE (03/31/2017 4:08 PM) Component Value Ref Range Glucose, POC 122 (H) 70 - 100 MG/DL Specimen Performing Laboratory [facility] [address] [place] [address] * POC GLUCOSE (03/31/2017 3:02 PM) Component Value Ref Range Glucose, POC 161 (H) 70 - 100 MG/DL Specimen Performing Laboratory MAIN LAB [address] [place] [address] * MAGNESIUM (03/31/2017 2:10 PM) Component Value Ref Range Magnesium 1.8 1.6 - 2.6 mg/dL Specimen Performing Laboratory MAIN LAB [address] [place] [address] * BASIC METABOLIC PANEL (03/31/2017 2:10 PM) Component Value Ref Range Sodium 133 (L) 137 - 147 MMOL/L Potassium 3.9 3.5 - 5.1 MMOL/L Chloride 103 98 - 110 MMOL/L CO2 18 (L) 21 - 30 MMOL/L Anion Gap 12 3 - 12 Glucose 199 (H) 70 - 100 MG/DL Blood Urea Nitrogen 30 (H) 7 - 25 MG/DL Creatinine 6.29 (H) 0.4 - 1.24 MG/DL Calcium 7.4 (L) 8.5 - 10.6 MG/DL eGFR Non 9 (L) >60 mL/min Comment: The eGFR is not validated for use in drug dosing adjustments. Continue to use estimated creatinine clearance per dosing reference text. Please contact the Clinical Pharmacist for questions. eGFR 11 (L) >60 mL/min Comment: The eGFR is not validated for use in drug dosing adjustments. Continue to use estimated creatinine clearance per dosing reference text. Please contact the Clinical Pharmacist for questions. Specimen Performing Laboratory Blood MAIN LAB [address] [place] [address] * TROPONIN-I (03/31/2017 2:10 PM) Component Value Ref Range Troponin-I 0.11 (H) 0.0 - 0.05 NG/ML Specimen Performing Laboratory Blood MAIN LAB [address] [place] [address] * CREATINE KINASE-CPK (03/31/2017 2:10 PM) Component Value Ref Range Creatine Kinase 284 (H) 35 - 232 U/L Specimen Performing Laboratory Blood MAIN LAB [address] [place] [address] * POC GLUCOSE (03/31/2017 2:07 PM) Component Value Ref Range Glucose, POC 200 (H) 70 - 100 MG/DL Specimen Performing Laboratory MAIN LAB [address] [place] [address] * POC GLUCOSE (03/31/2017 1:01 PM) Component Value Ref Range Glucose, POC 194 (H) 70 - 100 MG/DL Specimen Performing Laboratory [facility] [address] [place] [address]686 * POC GLUCOSE (03/31/2017 11:48 AM) Component Value Ref Range Glucose, POC 133 (H) 70 - 100 MG/DL Specimen Performing Laboratory [facility] [address] [place] [address] * POC GLUCOSE (03/31/2017 11:21 AM) Component Value Ref Range Glucose, POC 124 (H) 70 - 100 MG/DL Specimen Performing Laboratory [facility] [address] [place] [address] 6[address] * POC GLUCOSE (03/31/2017 10:36 AM) Component Value Ref Range Glucose, POC 100 70 - 100 MG/DL Specimen Performing Laboratory [facility] [address] [place] [address] 23396 * POC GLUCOSE (03/31/2017 10:18 AM) Component Value Ref Range Glucose, POC 95 70 - 100 MG/DL Specimen Performing Laboratory [facility] [address] [place] [address] 31228 * PHOSPHORUS (03/31/2017 10:00 AM) Component Value Ref Range Phosphorus 1.6 (L) 2.0 - 4.0 MG/DL Specimen Performing Laboratory Blood [facility] [address] [place] [address]698 * MAGNESIUM (03/31/2017 10:00 AM) Component Value Ref Range Magnesium 1.9 1.6 - 2.6 mg/dL Specimen Performing Laboratory Blood [facility] [address] [place] [address] * BASIC METABOLIC PANEL (03/31/2017 10:00 AM) Component Value Ref Range Sodium 133 (L) 137 - 147 MMOL/L Potassium 3.3 (L) 3.5 - 5.1 MMOL/L Chloride 104 98 - 110 MMOL/L CO2 20 (L) 21 - 30 MMOL/L Anion Gap 9 3 - 12 Glucose 91 70 - 100 MG/DL Blood Urea Nitrogen 30 (H) 7 - 25 MG/DL Creatinine 6.21 (H) 0.4 - 1.24 MG/DL Calcium 7.6 (L) 8.5 - 10.6 MG/DL eGFR Non 10 (L) >60 mL/min Comment: The eGFR is not validated for use in drug dosing adjustments. Continue to use estimated creatinine clearance per dosing reference text. Please contact the Clinical Pharmacist for questions. eGFR 12 (L) >60 mL/min Comment: The eGFR is not validated for use in drug dosing adjustments. Continue to use estimated creatinine clearance per dosing reference text. Please contact the Clinical Pharmacist for questions. Specimen Performing Laboratory Blood MAIN LAB [address] [place], [place] [id number] * TROPONIN-I (03/31/2017 10:00 AM) Component Value Ref Range Troponin-I 0.10 (H) 0.0 - 0.05 NG/ML Specimen Performing Laboratory Blood [facility] [address] [place], [place] [id number] * CREATINE KINASE-CPK (03/31/2017 10:00 AM) Component Value Ref Range Creatine Kinase 304 (H) 35 - 232 U/L Specimen Performing Laboratory Blood [facility] [address] [place] [address] * POC GLUCOSE (03/31/2017 9:59 AM) Component Value Ref Range Glucose, POC 96 70 - 100 MG/DL Specimen Performing Laboratory [facility] [address] [place] [address] * POC GLUCOSE (03/31/2017 8:55 AM) Component Value Ref Range Glucose, POC 144 (H) 70 - 100 MG/DL Specimen Performing Laboratory [facility] [address] [place] [address] * POC GLUCOSE (03/31/2017 8:05 AM) Component Value Ref Range Glucose, POC 163 (H) 70 - 100 MG/DL Specimen Performing Laboratory [facility] [address] [place], [place] [id number] * BLOOD GASES, ARTERIAL (03/31/2017 8:00 AM) Component Value Ref Range pH-Arterial 7.36 7.35 - 7.45 pCO2-Arterial 34 (L) 35 - 45 MMHG pO2-Arterial 121 (H) 80 - 100 MMHG Base Deficit-Arterial 5.8 MMOL/L O2 Sat-Arterial 98.2 95 - 99 % Lkyvbqzxgvy-TFP-Sgs 19.6 (L) 21 - 28 MMOL/L Specimen Performing Laboratory Blood, arterial - Blood [facility] [address] [place], [place] [id number] * PHOSPHORUS (03/31/2017 8:00 AM) Component Value Ref Range Phosphorus 1.7 (L) 2.0 - 4.0 MG/DL Specimen Performing Laboratory Blood MAIN LAB [address] [place] [address] * MAGNESIUM (03/31/2017 8:00 AM) Component Value Ref Range Magnesium 1.9 1.6 - 2.6 mg/dL Specimen Performing Laboratory Blood MAIN LAB [address] [place] [address] 31884 * BASIC METABOLIC PANEL (03/31/2017 8:00 AM) Component Value Ref Range Sodium 132 (L) 137 - 147 MMOL/L Potassium 3.6 3.5 - 5.1 MMOL/L Chloride 102 98 - 110 MMOL/L CO2 20 (L) 21 - 30 MMOL/L Anion Gap 10 3 - 12 Glucose 176 (H) 70 - 100 MG/DL Blood Urea Nitrogen 31 (H) 7 - 25 MG/DL Creatinine 6.38 (H) 0.4 - 1.24 MG/DL Calcium 7.5 (L) 8.5 - 10.6 MG/DL eGFR Non 9 (L) >60 mL/min Comment: The eGFR is not validated for use in drug dosing adjustments. Continue to use estimated creatinine clearance per dosing reference text. Please contact the Clinical Pharmacist for questions. eGFR 11 (L) >60 mL/min Comment: The eGFR is not validated for use in drug dosing adjustments. Continue to use estimated creatinine clearance per dosing reference text. Please contact the Clinical Pharmacist for questions. Specimen Performing Laboratory Blood MAIN LAB [address] [place] [address] * POC GLUCOSE (03/31/2017 6:55 AM) Component Value Ref Range Glucose, POC 194 (H) 70 - 100 MG/DL Specimen Performing Laboratory MAIN LAB [address] [place] [address] 0[address] * POC GLUCOSE (03/31/2017 6:05 AM) Component Value Ref Range Glucose, POC 241 (H) 70 - 100 MG/DL Specimen Performing Laboratory MAIN LAB [address] [place] [address] * PHOSPHORUS (03/31/2017 5:54 AM) Component Value Ref Range Phosphorus 2.5 2.0 - 4.0 MG/DL Specimen Performing Laboratory Blood MAIN LAB [address] [place] [address] 28484 * MAGNESIUM (03/31/2017 5:54 AM) Component Value Ref Range Magnesium 1.8 1.6 - 2.6 mg/dL Specimen Performing Laboratory Blood MAIN LAB [address] [place] [address] * BASIC METABOLIC PANEL (03/31/2017 5:54 AM) Component Value Ref Range Sodium 129 (L) 137 - 147 MMOL/L Potassium 2.9 (L) 3.5 - 5.1 MMOL/L Chloride 100 98 - 110 MMOL/L CO2 19 (L) 21 - 30 MMOL/L Anion Gap 10 3 - 12 Glucose 244 (H) 70 - 100 MG/DL Blood Urea Nitrogen 29 (H) 7 - 25 MG/DL Creatinine 6.16 (H) 0.4 - 1.24 MG/DL Calcium 6.9 (L) 8.5 - 10.6 MG/DL eGFR Non 10 (L) >60 mL/min Comment: The eGFR is not validated for use in drug dosing adjustments. Continue to use estimated creatinine clearance per dosing reference text. Please contact the Clinical Pharmacist for questions. eGFR 12 (L) >60 mL/min Comment: The eGFR is not validated for use in drug dosing adjustments. Continue to use estimated creatinine clearance per dosing reference text. Please contact the Clinical Pharmacist for questions. Specimen Performing Laboratory Blood MAIN LAB [address] [place] [address] * POC GLUCOSE (03/31/2017 5:09 AM) Component Value Ref Range Glucose, POC 235 (H) 70 - 100 MG/DL Specimen Performing Laboratory MAIN LAB [address] [place] [address] * COMPREHENSIVE METABOLIC PANEL (03/31/2017 4:11 AM) Component Value Ref Range Sodium 127 (L) 137 - 147 MMOL/L Potassium 3.3 (L) 3.5 - 5.1 MMOL/L Chloride 95 (L) 98 - 110 MMOL/L Glucose 241 (H) 70 - 100 MG/DL Blood Urea Nitrogen 30 (H) 7 - 25 MG/DL Creatinine 6.34 (H) 0.4 - 1.24 MG/DL Calcium 7.5 (L) 8.5 - 10.6 MG/DL Total Protein 6.6 6.0 - 8.0 G/DL Total Bilirubin 0.3 0.3 - 1.2 MG/DL Albumin 3.5 3.5 - 5.0 G/DL Alk Phosphatase 132 (H) 25 - 110 U/L AST (SGOT) 16 7 - 40 U/L CO2 18 (L) 21 - 30 MMOL/L ALT (SGPT) 7 7 - 56 U/L Anion Gap 14 (H) 3 - 12 eGFR Non 9 (L) >60 mL/min Comment: The eGFR is not validated for use in drug dosing adjustments. Continue to use estimated creatinine clearance per dosing reference text. Please contact the Clinical Pharmacist for questions. eGFR 11 (L) >60 mL/min Comment: The eGFR is not validated for use in drug dosing adjustments. Continue to use estimated creatinine clearance per dosing reference text. Please contact the Clinical Pharmacist for questions. Specimen Performing Laboratory Blood MAIN LAB [address] [place] [address] * PHOSPHORUS (03/31/2017 4:11 AM) Component Value Ref Range Phosphorus 3.0 2.0 - 4.0 MG/DL Specimen Performing Laboratory Blood MAIN LAB [address] [place] [address] 90706 * MAGNESIUM (03/31/2017 4:11 AM) Component Value Ref Range Magnesium 2.1 1.6 - 2.6 mg/dL Specimen Performing Laboratory Blood MAIN LAB [address] [place] [address] 45765 * IONIZED CALCIUM (03/31/2017 4:11 AM) Component Value Ref Range Ionized Calcium 0.98 (L) 1.0 - 1.3 MMOL/L Specimen Performing Laboratory Blood MAIN LAB [address] [place] [address] 93060 * CBC AND DIFF (03/31/2017 4:11 AM) Component Value Ref Range White Blood Cells 15.7 (H) 4.5 - 11.0 K/UL RBC 3.80 (L) 4.4 - 5.5 M/UL Hemoglobin 10.4 (L) 13.5 - 16.5 GM/DL Hematocrit 30.6 (L) 40 - 50 % MCV 80.5 80 - 100 FL MCH 27.4 26 - 34 PG MCHC 34.1 32.0 - 36.0 G/DL RDW 15.7 (H) 11 - 15 % Platelet Count 227 150 - 400 K/UL MPV 8.6 7 - 11 FL Neutrophils 80 (H) 41 - 77 % Lymphocytes 13 (L) 24 - 44 % Monocytes 7 4 - 12 % Eosinophils 0 0 - 5 % Basophils 0 0 - 2 % Absolute Neutrophil Count 12.50 (H) 1.8 - 7.0 K/UL Absolute Lymph Count 2.10 1.0 - 4.8 K/UL Absolute Monocyte Count 1.00 (H) 0 - 0.80 K/UL Absolute Eosinophil Count 0.00 0 - 0.45 K/UL Absolute Basophil Count 0.00 0 - 0.20 K/UL Specimen Performing Laboratory [facility] [address] [place] [address] * POC GLUCOSE (03/31/2017 4:10 AM) Component Value Ref Range Glucose, POC 227 (H) 70 - 100 MG/DL Specimen Performing Laboratory [facility] [address] [place] [address] * BLOOD GASES, ARTERIAL (03/31/2017 3:27 AM) Component Value Ref Range pH-Arterial 7.33 (L) 7.35 - 7.45 pCO2-Arterial 39 35 - 45 MMHG pO2-Arterial 147 (H) 80 - 100 MMHG Base Deficit-Arterial 5.3 MMOL/L O2 Sat-Arterial 98.6 95 - 99 % Kgowdxlnmms-ISG-Uxh 20.1 (L) 21 - 28 MMOL/L Specimen Performing Laboratory Blood, arterial - Blood MAIN LAB [address] [place] [address] * ABDOMEN AP ONLY (03/31/2017 3:08 AM) [...] Interface, Radiant Results - 03/31/2017 1:44 PM BAND SAW OPERATOR ABDOMEN AP ONLY CLINICAL HISTORY: OG tube [...] Interface, Radiant Results - 03/31/2017 8:30 AM BAND SAW OPERATOR Single view of the chest Clinical history: [...] 0 - 5 Specimen Performing Laboratory Urine [facility] [address] [place] [address] * URINALYSIS DIPSTICK (03/31/2017 3:05 AM) Component Value Ref Range Color,UA YELLOW Turbidity,UA 2+ (A) CLEAR-CLEAR Specific [place]-Urine 1.014 1.003 - 1.035 pH,UA 5.0 5.0 - 8.0 Protein,UA 2+ (A) NEG-NEG Glucose,UA 2+ (A) NEG-NEG Ketones,UA NEG NEG-NEG Bilirubin,UA NEG NEG-NEG Blood,UA 2+ (A) NEG-NEG Urobilinogen,UA NORMAL NORM-NORMAL Nitrite,UA NEG NEG-NEG Leukocytes,UA 3+ (A) NEG-NEG Urine Ascorbic Acid, UA NEG NEG-NEG Specimen Performing Laboratory Urine [facility] [address] [place] [id number] * CULTURE-URINE W/SENSITIVITY (03/31/2017 3:05 AM) Component Value Ref Range Battery Name URINE CULTURE Specimen Description URINE,INDWELLING CATH Special Requests NONE Culture NO GROWTH Report Status FINAL 04/01/2017 Specimen Performing Laboratory Urine - Youngblood Catheter [facility] [address] [place] [id number] * CREATINE KINASE-CPK (03/31/2017 2:45 AM) Component Value Ref Range Creatine Kinase 323 (H) 35 - 232 U/L Specimen Performing Laboratory Blood [facility] [address] [place] [address] * TROPONIN-I (03/31/2017 2:45 AM) Component Value Ref Range Troponin-I 0.10 (H) 0.0 - 0.05 NG/ML Specimen Performing Laboratory Blood [facility] [address] [place] [address] * LACTIC ACID (BG - RAPID LACTATE) (03/31/2017 2:45 AM) Component Value Ref Range Lactic Acid,BG 1.9 0.5 - 2.0 MMOL/L Specimen Performing Laboratory [facility] [address] [place], [place] [id number] * MAGNESIUM (03/31/2017 2:45 AM) Component Value Ref Range Magnesium 2.2 1.6 - 2.6 mg/dL Specimen Performing Laboratory [facility] [address] [place] [address] * PHOSPHORUS (03/31/2017 2:45 AM) Component Value Ref Range Phosphorus 3.1 2.0 - 4.0 MG/DL Specimen Performing Laboratory [facility] [address] [place], [place] [id number] * BETA HYDROXYBUTYRATE (KETONES) (03/31/2017 2:45 AM) Component Value Ref Range Beta Hydroxybutyrate 0.8 (H) <0.3 MMOL/L Comment: Beta hydroxybutyrate (BOHB) is the most abundant ketone (78%), followed by acetoacetate (20%) and acetone (2%). Measurement BOHB is recommended to assess ketones in DKA. Expected BOHB Results for DKA: Initial presentation high/increasing During treatment decreasing Resolved decreasing/normal Specimen Performing Laboratory [facility] [address] [place], [place] [id number] * IONIZED CALCIUM (03/31/2017 2:45 AM) Component Value Ref Range Ionized Calcium 1.02 1.0 - 1.3 MMOL/L Specimen Performing Laboratory [facility] [address] [place] [address] * HEMOGLOBIN A1C (03/31/2017 2:45 AM) Component Value Ref Range Hemoglobin A1C 14.7 (H) 4.0 - 6.0 % Comment: The ADA recommends that most patients with type 1 and type 2 diabetes maintain an A1c level <7%. Specimen Performing Laboratory [facility] [address] [place], [place] [id number] * COMPREHENSIVE METABOLIC PANEL (03/31/2017 2:45 AM) Component Value Ref Range Sodium 128 (L) 137 - 147 MMOL/L Potassium 3.2 (L) 3.5 - 5.1 MMOL/L Chloride 95 (L) 98 - 110 MMOL/L Glucose 230 (H) 70 - 100 MG/DL Blood Urea Nitrogen 29 (H) 7 - 25 MG/DL Creatinine 6.51 (H) 0.4 - 1.24 MG/DL Calcium 7.4 (L) 8.5 - 10.6 MG/DL Total Protein 6.5 6.0 - 8.0 G/DL Total Bilirubin 0.3 0.3 - 1.2 MG/DL Albumin 3.4 (L) 3.5 - 5.0 G/DL Alk Phosphatase 128 (H) 25 - 110 U/L AST (SGOT) 16 7 - 40 U/L CO2 21 21 - 30 MMOL/L ALT (SGPT) 7 7 - 56 U/L Anion Gap 12 3 - 12 eGFR Non 9 (L) >60 mL/min Comment: The eGFR is not validated for use in drug dosing adjustments. Continue to use estimated creatinine clearance per dosing reference text. Please contact the Clinical Pharmacist for questions. eGFR 11 (L) >60 mL/min Comment: The eGFR is not validated for use in drug dosing adjustments. Continue to use estimated creatinine clearance per dosing reference text. Please contact the Clinical Pharmacist for questions. Specimen Performing Laboratory [facility] [address] [place] [id number] * PTT (APTT) (03/31/2017 2:45 AM) Component Value Ref Range APTT 19.9 (L) 21.0 - 39.0 SEC Specimen Performing Laboratory Blood MAIN [facility] [address] [place] [address] * PROTIME INR (PT) (03/31/2017 2:45 AM) Component Value Ref Range INR 0.9 0.8 - 1.2 Specimen Performing Laboratory [facility] [address] [place] [address] * CBC AND DIFF (03/31/2017 2:45 AM) Component Value Ref Range White Blood Cells 10.4 4.5 - 11.0 K/UL RBC 3.86 (L) 4.4 - 5.5 M/UL Hemoglobin 10.5 (L) 13.5 - 16.5 GM/DL Hematocrit 31.3 (L) 40 - 50 % MCV 80.9 80 - 100 FL MCH 27.2 26 - 34 PG MCHC 33.6 32.0 - 36.0 G/DL RDW 16.3 (H) 11 - 15 % Platelet Count 206 150 - 400 K/UL MPV 8.7 7 - 11 FL Neutrophils 81 (H) 41 - 77 % Lymphocytes 11 (L) 24 - 44 % Monocytes 8 4 - 12 % Eosinophils 0 0 - 5 % Basophils 0 0 - 2 % Absolute Neutrophil Count 8.30 (H) 1.8 - 7.0 K/UL Absolute Lymph Count 1.20 1.0 - 4.8 K/UL Absolute Monocyte Count 0.80 0 - 0.80 K/UL Absolute Eosinophil Count 0.00 0 - 0.45 K/UL Absolute Basophil Count 0.00 0 - 0.20 K/UL Specimen Performing Laboratory Blood [facility]IN [facility] [address] [place] [address] * POC GLUCOSE (03/31/2017 2:22 AM) Component Value Ref Range Glucose, POC 186 (H) 70 - 100 MG/DL Specimen Performing Laboratory MAIN [facility] [address] [place] [address] * CT HEAD EXTERNAL IMAGING (03/30/2017 12:15 AM) Narrative This order has been auto finalized and does not contain a result. * GENERAL RAD CHEST EXTERNAL IMAGING (03/30/2017) Narrative This order has been auto finalized and does not contain a result. * CT HEAD EXTERNAL IMAGING (03/28/2017) Narrative This order has been auto finalized and does not contain a result. 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) HTN (hypertension) Unspecified essential hypertension PVD (peripheral vascular disease) (HCC) Peripheral vascular disease, unspecified Diabetic Charcot foot (HCC) Type II or unspecified type diabetes mellitus with neurological manifestations , not stated as uncontrolled in this encounter Admitting Diagnoses Diagnosis intractable seizures Seizure (HCC) in this encounter Administered Medications Medication Order MAR Action Action Date Dose Rate Site acetaminophen (TYLENOL) tablet 1,000 mg Given 04/02/2017 1,000 mg 1,000 mg, Oral, EVERY 4 HOURS PRN, 04:48 BAND SAW OPERATOR Starting Wed04/02/17 at 0348, Until Wed04/02/17 at 1103, Pain non-opioid: may be used alone or in combination with opioid analgesia, *NTE 4GM DAILY*, TOTAL ACETAMINOPHEN DOSE NOT TO EXCEED 4GM DAILY acetaminophen (TYLENOL) tablet 1,000 mg Given 04/03/2017 1,000 mg 1,000 mg, Oral, EVERY 6 HOURS PRN, 14:27 BAND SAW OPERATOR Starting Wed04/02/17 at 1115, Until 04/05/17 at 2305, Pain non-opioid: may be used alone or in combination with opioid analgesia, *NTE 4GM DAILY*, TOTAL ACETAMINOPHEN DOSE NOT TO EXCEED 4GM DAILY Given 04/04/2017 1,000 mg 09:33 BAND SAW OPERATOR Given 04/04/2017 1,000 mg 23:57 BAND SAW OPERATOR amLODIPine (NORVASC) tablet 10 mg Given 04/03/2017 10 mg 10 mg, Oral, DAILY, First dose on Wed 09:27 BAND SAW OPERATOR 04/02/17 at 1215, Until Discontinued, NURSING: Please educate patient and document: Do not give with grapefruit juice. Given 04/04/2017 10 mg 09:32 BAND SAW OPERATOR Given 04/05/2017 10 mg 08:10 BAND SAW OPERATOR anticoagulant sodium citrate solution Given 04/01/2017 2.8 mL 1-5 mL 08:14 BAND SAW OPERATOR 1-5 mL, Intra-catheter, ONCE, 1 dose, Wed03/31/17 at 1645, For use to pack vascular access. Administer volume appropriate to catheter lumen size. NOTE: This is a HIGH ALERT Medication. anticoagulant sodium citrate solution Given 04/02/2017 4.5 mL 1-5 mL 13:59 BAND SAW OPERATOR 1-5 mL, Intra-catheter, ONCE, 1 dose, Wed04/02/17 at 0530, For use to pack vascular access. Administer volume appropriate to catheter lumen size. NOTE: This is a HIGH ALERT Medication. anticoagulant sodium citrate solution Given 04/05/2017 5 mL 1-5 mL 13:27 BAND SAW OPERATOR 1-5 mL, Intra-catheter, ONCE, 1 dose, Wed04/05/17 at 0730, For use to pack vascular access. Administer volume appropriate to catheter lumen size. NOTE: This is a HIGH ALERT Medication. calcium gluconate 1 g in sodium chloride Given 03/31/2017 1 g 110 mL/ hr 0.9% (NS) 110 mL IVPB (MB+) 05:58 BAND SAW OPERATOR 1 g, Intravenous, 110 mL, Administer over 1 Hours, ONCE, 1 dose, Wed03/31/17 at 0515, Infuse each 1 gm over at least 1hr - Each 1 gm delivers 4.6 mEq Calcium cefTRIAXone (ROCEPHIN) IVP 1 g Given 03/31/2017 1 g 1 g, Intravenous, EVERY 24 HOURS, First 05:35 BAND SAW OPERATOR dose on Wed03/31/17 at 0545, Until Discontinued, INSTR: IV PUSH -- RECONSTITUTE EACH 1 GM WITH 10 MLS 0.9% NACL Given 04/01/2017 1 g 09:55 BAND SAW OPERATOR dexmedetomidine (PRECEDEX) 400 mcg/NS Dose/Rate 03/31/2017 0.4 7.8 mL/ hr 100 ml IV drip Verify 07:24 BAND SAW OPERATOR mcg/kg/hr 0.2-1 mcg/kg/hr 77.9 kg (3.895-19.475 mL/hr, rounded to 3.9-19.5 mL/hr) 100 mL, at 3.9-19.5 mL/hr, Intravenous, TITRATE DIRECTED , Starting Wed03/31/17 at 0445, Until Wed03/31/17 at 0843, -Initiate at 0.2 mcg/kg/hr and maintain for 30 minutes -Titrate to keep: RASS of 0 to -2 a.) Titrate infusion in increments of 0.1 mcg/kg/hour at 5 minute intervals until goal sedation level achieved or maintenance exceeds 1.0 mcg/kg/hr b.) If HR < 55 or SBP < 90 mmHg hold for 10 minutes then restart at dose reduced by 0.3 mcg/kg/min c.) Notify physician for persistent hypotension (SBP < 90 mmHg) or bradycardia (HR < 55) over 15 minutes d.) For breakthrough agitation NOTIFY PHYSICIAN and consider bolus of 1 mcg/kg over 20 min if HR and BP are acceptable. e.) Notify physician if maintenance exceeds 1 mcg/kg/hr -Taper agent continuously to lowest effective dose to achieve desired level of sedation keeping patient calm and able to participate in care. Dose/Rate Change 03/31/2017 0.2 3.9 mL/hr 08:08 BAND SAW OPERATOR mcg/kg/hr Infusion Restarted 03/31/2017 0.2 3.9 mL/hr 08:30 BAND SAW OPERATOR mcg/kg/hr dextrose 5 % & 0.45% NaCl infusion Given - New 03/31/2017 125 mL/hr 1,000 mL, Intravenous, at 125 mL/hr, Bag 05:13 BAND SAW OPERATOR CONTINUOUS, Starting Wed03/31/17 at 0445, Until Wed03/31/17 at 1416 DEXTROSE 50 % IN WATER (D50W) IV SYRG Given 03/31/2017 25 mL (Cabinet Override) 17:09 BAND SAW OPERATOR NOW, 1 dose, Wed03/31/17 at 1715, Created by cabinet override NOTE: This is a HIGH ALERT Medication. docusate (COLACE) capsule 100 mg Given 04/01/2017 100 mg 100 mg, Oral, TWICE DAILY, First dose on 20:09 BAND SAW OPERATOR Wed03/31/17 at 0900, Until Discontinued, Hold for loose stools Given 04/04/2017 100 mg 09:32 BAND SAW OPERATOR heparin (porcine) PF syringe 5,000 Units Given 04/04/2017 5,000 Units Abdominal 5,000 Units, Subcutaneous, EVERY 8 15:45 BAND SAW OPERATOR Tissue HOURS, First dose on Wed03/31/17 at 0600, Until Discontinued, NOTE: This is a HIGH ALERT Medication. Given 04/04/2017 5,000 Units Abdomen:LLQ 23:46 BAND SAW OPERATOR Given 04/05/2017 5,000 Units Abdomen:LLQ 08:10 BAND SAW OPERATOR hydrALAZINE (APRESOLINE) injection 20 mg Given 03/31/2017 20 mg 20 mg, Intravenous, EVERY 6 HOURS PRN, 03:41 BAND SAW OPERATOR Starting Wed03/31/17 at 0336, Until Wed03/31/17 at 0637, Systolic Blood Pressure..., SBP > 180 hydrALAZINE (APRESOLINE) tablet 10 mg Given 04/02/2017 10 mg 10 mg, Oral, ONCE, 1 dose, Wed04/02/17 04:48 BAND SAW OPERATOR at 0400 insulin aspart (NOVOLOG FLEXPEN) Given 04/04/2017 8 Units Abdomen:LLQ injection PEN 0-14 Units 18:06 BAND SAW OPERATOR 0-14 Units, Subcutaneous, FIVE TIMES DAILY, First dose on Wed04/02/17 at 1700, Until Discontinued, -POC glucose 140-180mg/dL at 07, 11, 17 administer 2 units insulin, at 21, 03* administer 0 units. -POC glucose 181-220mg/dL at 07, 11, 17 administer 4 units insulin, at , 03* administer 2 units. -POC glucose 221-260mg/dL at administer 6 units insulin, at , * administer 4 units. -POC glucose 261-300mg/dL at administer 8 units insulin, at , * administer 6 units. -POC glucose 301-350mg/dL at administer 10 units insulin, at , * administer 8 units. -POC glucose 351-400mg/dL at administer 12 units insulin, at , * administer 10 units. -POC glucose >400mg/dL at administer 14 units insulin, at * administer 12 units. *only if ordered 5x's daily For POCT glucose >350mg/dL give correction bolus and recheck POCT glucose in 2 hours. If POCT glucose at 2 hours >300mg/dL call physician for further orders. For patients who are not eating meals, continue to administer the appropriate correction factor. NOTE: This is a HIGH ALERT Medication. Given 04/05/2017 2 Units Arm, Left 08:46 BAND SAW OPERATOR Given 04/05/2017 6 Units Arm, Right 12:39 BAND SAW OPERATOR insulin aspart (NOVOLOG FLEXPEN) Given 04/01/2017 4 Units Arm, Right injection PEN 0-7 Units 21:27 BAND SAW OPERATOR 0-7 Units, Subcutaneous, FIVE TIMES DAILY, First dose on Deloris 04/01/17 at 1745, Until Discontinued, -POC glucose 140-180mg/dL at administer 1 unit insulin, at , 03* administer 0 units. -POC glucose 181-220mg/dL at administer 2 units insulin, at , 03* administer 1 unit. -POC glucose 221-260mg/dL at administer 3 units insulin, at , 03* administer 2 units. -POC glucose 261-300mg/dL at administer 4 units insulin, at , 03* administer 3 units. -POC glucose 301-350mg/dL at administer 5 units insulin, at , 03* administer 4 units. -POC glucose 351-400mg/dL at administer 6 units insulin, at , * administer 5 units. -POC glucose >400mg/dL at 07, 11, 17 administer 7 units insulin, at 21, 03* administer 6 units. *only if ordered 5x's daily For POCT glucose >350mg/dL give correction bolus and recheck POCT glucose in 2 hours. If POCT glucose at 2 hours >300mg/dL call physician for further orders. For patients who are not eating meals, continue to administer the appropriate correction factor. NOTE: This is a HIGH ALERT Medication. Given 04/02/2017 3 Units Arm, Left 03:25 BAND SAW OPERATOR Given 04/02/2017 3 Units Abdominal 07:50 BAND SAW OPERATOR Tissue insulin glargine (LANTUS SOLOSTAR, Given 04/03/2017 10 Units Arm, Left BASAGLAR) injection PEN 10 Units 12:02 BAND SAW OPERATOR 10 Units, Subcutaneous, DAILY, First dose on Wed04/02/17 at 1200, Until Discontinued, -- Do not mix with other insulins -- NOTE: This is a HIGH ALERT Medication. Given 04/04/2017 10 Units Abdominal 12:16 BAND SAW OPERATOR Tissue Given 04/05/2017 10 Units Arm, Left 12:45 BAND SAW OPERATOR insulin regular (NOVOLIN R) 100 Units in Infusion 03/31/2017 1 Units/hr 1 mL/hr sodium chloride 0.9% (NS) 100 mL IV drip Restarted 22:25 BAND SAW OPERATOR (std conc) 1-32 Units/hr (1-32 mL/hr) 100 mL, at 1-32 mL/hr, Intravenous, TITRATE DIRECTED , Starting 03/30/17 at 2315, Until Deloris 04/01/17 at 0813, (Administration Instructions were omitted from this summary because they were too long) Given - New Bag 04/01/2017 1 Units/hr 1 mL/hr 02:57 BAND SAW OPERATOR Dose/Rate Change 04/01/2017 0.5 Units/hr 0.5 mL/hr 05:04 BAND SAW OPERATOR levETIRAcetam (KEPPRA) tablet 250 mg Given 04/05/2017 250 mg 250 mg, Oral, ONCE, 1 dose, 04/05/17 18:55 BAND SAW OPERATOR at 1800, give after HD on 04/05/17 levETIRAcetam (KEPPRA) tablet 750 mg Given 04/04/2017 750 mg 750 mg, Oral, TWICE DAILY, First dose on 09:32 BAND SAW OPERATOR Wed04/02/17 at 1600, Until Discontinued, Please give immediately after dialysis on dialysis days, give at 1200 on all other non dialysis days Given 04/04/2017 750 mg 20:34 BAND SAW OPERATOR Given 04/05/2017 750 mg 08:10 BAND SAW OPERATOR levETIRAcetam in NaCl (iso-os) (KEPPRA) Given - New 03/31/2017 1,000 mg IVPB (premade) 1,000 mg 100 mL Bag 03:15 BAND SAW OPERATOR 1,000 mg, 100 mL, Administer over 15 Minutes, Intravenous, ONCE, 1 dose, Wed03/31/17 at 0230 levETIRAcetam in NaCl (iso-os) (KEPPRA) Given - 04/01/2017 500 mg IVPB (premade) 500 mg 100 mL Bag 11:24 BAND SAW OPERATOR 500 mg, 100 mL, Administer over 15 Minutes, Intravenous, DAILY, First dose on Wed04/01/17 at 1200, Until Discontinued, Administer immediately after dialysis on dialysis days and at scheduled time on all other days magnesium sulfate 1 g/D5W 100 mL IVPB Given - New 04/01/2017 1 g 100 mL/hr 1 g, Intravenous, 100 mL, Administer Bag 15:57 BAND SAW OPERATOR over 1 Hours, ONCE, 1 dose, Wed04/01/17 at 1500, Each 1gm delivers 8.1 mEq Magnesium. metoprolol (LOPRESSOR) injection 5 mg Given 03/31/2017 5 mg 5 mg, Intravenous, EVERY 6 HOURS, First 17:09 BAND SAW OPERATOR dose on Wed03/31/17 at 1745, Until Discontinued, Hold for heart rate < 60 bpm and/or SBP below 90 PROTECT FROM LIGHT Given 03/31/2017 5 mg 23:07 BAND SAW OPERATOR Given 04/01/2017 5 mg 11:23 BAND SAW OPERATOR metoprolol XL (TOPROL XL) tablet 100 mg Given 04/03/2017 100 mg 100 mg, Oral, DAILY, First dose on Wed 09:27 BAND SAW OPERATOR 04/02/17 at 0900, Until Discontinued, Hold for heart rate < 60 bpm and/or systolic BP < 100mmHg tablets may be cut in half, DO NOT CRUSH or CHEW Given 04/04/2017 100 mg 09:32 BAND SAW OPERATOR Given 04/05/2017 100 mg 08:10 BAND SAW OPERATOR metoprolol XL (TOPROL XL) tablet 50 mg Given 04/02/2017 50 mg 50 mg, Oral, DAILY, First dose on Wed 01:15 BAND SAW OPERATOR 04/02/17 at 0115, Until Discontinued, Hold for heart rate < 60 bpm and/or systolic BP < 100mmHg tablets may be cut in half, DO NOT CRUSH or CHEW milk of magnesia (CONC) oral suspension Given 04/04/2017 10 mL 10 mL 09:33 BAND SAW OPERATOR 10 mL, Oral, DAILY, First dose on Wed03/31/17 at 0900, Until Discontinued, May hold if BM within 24 hours of dose. 10 mL CONC=30 mL MOM ondansetron (ZOFRAN) injection 4 mg Given 04/01/2017 4 mg 4 mg, Intravenous, EVERY 6 HOURS PRN, 20:09 BAND SAW OPERATOR Starting Deloris 04/01/17 at 1949, Until Wed04/05/17 at 2305, Nausea/Vomiting Injectable potassium chloride oral solution 40 mEq Given 03/31/2017 40 mEq 40 mEq, Per OG Tube, ONCE, 1 dose, Wed 03:55 BAND SAW OPERATOR 03/31/17 at 0345 potassium chloride oral solution 60 mEq Given 03/31/2017 60 mEq 60 mEq, Oral, ONCE, 1 dose, Wed03/31/17 05:58 BAND SAW OPERATOR at 0600 potassium chloride SR (K-DUR) tablet 40 Given 04/01/2017 40 mEq mEq 15:57 BAND SAW OPERATOR 40 mEq, Oral, ONCE, 1 dose, Deloris 04/01/17 at 1500, Do NOT break or crush tablet potassium chloride SR (K-DUR) tablet 60 Given 04/05/2017 60 mEq mEq 20:35 BAND SAW OPERATOR 60 mEq, Oral, ONCE, 1 dose, Wed04/05/17 at 2030, Do NOT break or crush tablet potassium phosphate 24 mmol in sodium Given - New 03/31/2017 24 mmol 83.3 mL/hr chloride 0.9% (NS) 500 mL IVPB (std) Bag 10:45 BAND SAW OPERATOR 24 mmol, Intravenous, 500 mL, Administer over 6 Hours, ONCE, 1 dose, Wed03/31/17 at 1000, Each 10mM K Phos delivers 14.7meq K+ NOTE: This is a HIGH ALERT Medication. propofol (DIPRIVAN) 10 mg/mL IV infusion Given - New 03/31/2017 15 7 mL /hr 5-150 mcg/kg/min Bag 02:35 BAND SAW OPERATOR mcg/kg/min 77.9 kg (2.337-70.11 mL/hr, rounded to 2.3-70.1 mL/hr) 100 mL, at 2.3-70.1 mL/hr, Intravenous, TITRATE DIRECTED , Starting Wed03/31/17 at 0300, Until Wed03/31/17 at 0638, -Initiate at 20 mcg/kg/min (No loading dose) -Titrate to keep: RASS of 0 to -2- -Increase in 10 mcg/kg/min increments every 1 minute to achieve goal sedation level. -Call physician if maintenance exceeds 150 mcg/kg/min -Taper agent continuously to lowest effective dose to achieve desired level of sedation keeping patient calm and able to participate in care. NOTE: This is a HIGH ALERT Medication. Dose/Rate Change 03/31/2017 10 4.7 mL/hr 05:40 BAND SAW OPERATOR mcg/kg/min Dose/Rate Change 03/31/2017 5 mcg/kg/min 2.3 mL/hr 06:02 BAND SAW OPERATOR senna/docusate (SENOKOT-S) tablet 1 Given 04/01/2017 1 tablet tablet 20:09 BAND SAW OPERATOR 1 tablet, Oral, TWICE DAILY, First dose on Wed03/31/17 at 0900, Until Discontinued, Hold for loose stools. If patient unable to take tablet, give 10 mL of senna/docusate (SENOKOT-S) solution. Send inMetaStat message to pharmacy. Given 04/04/2017 1 tablet 09:37 BAND SAW OPERATOR sodium chloride 0.9 % infusion Given - New 03/31/2017 150 mL/hr 1,000 mL, Intravenous, at 150 mL/hr, Bag 02:40 BAND SAW OPERATOR CONTINUOUS, Starting Wed03/30/17 at 2315, Until Wed03/31/17 at 0430, Contact provider for new IVF order when glucose reaches 250 mg/dL. sodium chloride 0.9 % infusion Given - New 04/01/2017 300 mL 1,000 mL, 300 mL, Intravenous, PRN IN IP Bag 05:00 BAND SAW OPERATOR DIALYSIS, 2 doses, Starting Wed03/31/17 at 1631, Until Wed04/01/17 at 0828, Other..., Prime Rinse, For Prime/Rinseback sodium chloride 0.9 % infusion Given - 04/02/2017 300 mL 1,000 mL, 300 mL, Intravenous, PRN IN IP Bag 10:10 BAND SAW OPERATOR DIALYSIS, 2 doses, Starting 04/02/17 at 0518, Until Wed04/02/17 at 1420, Other..., Prime Rinse, For Prime/Rinseback sodium chloride 0.9 % infusion Given - New 04/05/2017 300 mL 1,000 mL, 300 mL, Intravenous, PRN IN IP Bag 13:26 BAND SAW OPERATOR DIALYSIS, 2 doses, Starting Wed04/05/17 at 0717, Until Wed04/05/17 at 2305, Other..., Prime Rinse, For Prime/Rinseback in this encounter
--- OUTSIDE RECORDS SUMMARY | 2017-04-06 01:42 | XMS REPORT | Encounter Summary ---
Author Author [facility] Organization [facility] Address Unknown Phone Unavailable Care Team Providers Care Patient Account Specialist Name Role Phone PCP Unavailable Encounter Details Date Type Department Care Team Description 03/31/2017 Procedure Pass [id number] [place] [address] Social History Tobacco Use Types Packs/Day Years Used Date Never Assessed Sex Assigned at Date Recorded Not on file as of this encounter Plan of Treatment Not on fileas of this encounter Visit Diagnoses Not on filein this encounter
--- OUTSIDE RECORDS SUMMARY | 2017-04-06 01:42 | XMS REPORT | Encounter Summary ---
Author Author [facility] Organization [facility] Address Unknown Phone Unavailable Care Team Providers Care Drawing In Machine Tender Name Role Phone PCP Unavailable Encounter Details Date Type Department Care Team Description 03/31/2017 Procedure Pass [id number] [place] [address] Social History Tobacco Use Types Packs/Day Years Used Date Never Assessed Sex Assigned at Date Recorded Not on file as of this encounter Plan of Treatment Not on fileas of this encounter Visit Diagnoses Not on filein this encounter
--- OUTSIDE RECORDS SUMMARY | 2017-04-06 01:42 | XMS REPORT | Encounter Summary ---
Author Author [facility] Organization [facility] Address Unknown Phone Unavailable Care Team Providers Care Big Machine Consultant Name Role Phone PCP Unavailable Encounter Details Date Type Department Care Team Description 03/30/2017 Hospital [facility] Arrived Encounter Hospital Radiology [address] [place], [place] [id number] Social History Tobacco Use Types Packs/Day Years Used Date Never Assessed Sex Assigned at Date Recorded Not on file as of this encounter Medications at Time [...] daily. Give at 1200 on non-HD days (//Wed/Sun). Then on HD days (//) give immediately after dialysis metoprolol XL (TOPROL XL) Take 100 mg by mouth 100 mg extended release daily. tablet metFORMIN (GLUCOPHAGE) Take 500 mg by mouth 04/05/2017 500 mg tablet twice daily with meals. metOLazone (ZAROXOLYN) Take 2.5 mg by mouth 04/05/2017 2.5 mg tablet daily. nitrofurantoin Take 100 mg by mouth 03/31/2017 monohyd/m-cryst every 12 hours. Take with (MACROBID) 100 mg capsule food. as of this encounter Plan of Treatment Not on fileas of this encounter Visit Diagnoses Not on filein this encounter
--- OUTSIDE RECORDS SUMMARY | 2017-04-06 01:42 | XMS REPORT | Encounter Summary ---
Author Author [facility] Organization [facility] Address Unknown Phone Unavailable Care Team Providers Care Parachute Line Tier Name Role Phone PCP Unavailable Encounter Details Date Type Department Care Team Description 03/28/2017 Hospital [facility] Hospital Radiology [address] [place], [place] [id number] Social History Tobacco Use Types Packs/Day Years Used Date Never Assessed Sex Assigned at Date Recorded Not on file as of this encounter Plan of Treatment Not on fileas of this encounter Visit Diagnoses Not on filein this encounter
--- OUTSIDE RECORDS SUMMARY | 2017-04-06 01:42 | XMS REPORT | Encounter Summary ---
Author Author [facility] Organization [facility] Address Unknown Phone Unavailable Care Team Providers Care Glaze Handler Name Role Phone PCP Unavailable Encounter Details Date Type Department Care Team Description 03/31/2017 [facility] [place] [address] Social History Tobacco Use Types Packs/Day Years Used Date Never Assessed Sex Assigned at Date Recorded Not on file as of this encounter Plan of Treatment Not on fileas of this encounter Visit Diagnoses Not on filein this encounter
--- OUTSIDE RECORDS SUMMARY | 2017-04-06 01:42 | XMS REPORT | Encounter Summary ---
Author Author [facility] Organization [facility] Address Unknown Phone Unavailable Care Team Providers Care Store Grocery Merchandiser Name Role Phone PCP Unavailable Encounter Details Date Type Department Care Team Description 03/30/2017 Hospital [facility] Arrived Encounter Hospital Radiology [address] [place], [place] [id number] Social History Tobacco Use Types Packs/Day Years [...]
--- OUTSIDE RECORDS SUMMARY | 2017-04-06 01:44 | XMS REPORT | Continuity of Care Document ---
Author Author [facility] Address Unknown Phone Unavailable Allergies Active Description Code Type Severity Reaction Onset Reported/Identified Relationship to Patient Clinical Status Yes No Known Drug Allergies [id number] Drug Allergy Unknown N/A 05/18/2015 Medications There is no data. Problems Date Dx Coded Attending Type Code Diagnosis Diagnosed By 02/28/2013 MINNIE POLLARD APRNNDA S 250.02 DIABETES II UNCONTROLLED (UNCOMPLICATED) 02/28/2013 LATRICE SEARCH ENGINE MARKETING SPECIALIST, TERRY S 401.1 HYPERTENSION, BENIGN ESSENTIAL 02/28/2013 LATRICE SEARCH ENGINE MARKETING SPECIALIST, TERRY S V70.0 EXAM - ROUTINE H&P 02/28/2013 LATRICE MILLER TERRY S 250.02 DIABETES II UNCONTROLLED (UNCOMPLICATED) 02/28/2013 LATRICE MILLER TERRY S 401.1 HYPERTENSION, BENIGN ESSENTIAL 02/28/2013 LATRICE SEARCH ENGINE MARKETING SPECIALIST, TERRY S V70.0 EXAM - ROUTINE H&P 02/28/2013 LATRICE SEARCH ENGINE MARKETING SPECIALIST, TERRY S 250.02 DIABETES II UNCONTROLLED (UNCOMPLICATED) 02/28/2013 LATRICE SEARCH ENGINE MARKETING SPECIALIST, TERRY S 401.1 HYPERTENSION, BENIGN ESSENTIAL 02/28/2013 LATRICE SEARCH ENGINE MARKETING SPECIALIST, TERRY S V70.0 EXAM - ROUTINE H&P 02/28/2013 LATRICE SEARCH ENGINE MARKETING SPECIALIST, TERRY S 250.02 DIABETES II UNCONTROLLED (UNCOMPLICATED) 02/28/2013 LATRICE SEARCH ENGINE MARKETING SPECIALIST, TERRY S 401.1 HYPERTENSION, BENIGN ESSENTIAL 02/28/2013 LATRICE SEARCH ENGINE MARKETING SPECIALIST, TERRY S V70.0 EXAM - ROUTINE H&P 02/28/2013 LATRICE SEARCH ENGINE MARKETING SPECIALIST, TERRY S 250.02 DIABETES II UNCONTROLLED (UNCOMPLICATED) 02/28/2013 LATRICE SEARCH ENGINE MARKETING SPECIALIST, TERRY S 401.1 HYPERTENSION, BENIGN ESSENTIAL 02/28/2013 LATRICE SEARCH ENGINE MARKETING SPECIALIST, TERRY S V70.0 EXAM - ROUTINE H&P 02/28/2013 LATRICE SEARCH ENGINE MARKETING SPECIALIST, TERRY S 250.02 DIABETES II UNCONTROLLED (UNCOMPLICATED) 02/28/2013 LATRICE SEARCH ENGINE MARKETING SPECIALIST, TERRY S 401.1 HYPERTENSION, BENIGN ESSENTIAL 02/28/2013 LATRICE SEARCH ENGINE MARKETING SPECIALIST, TERRY S V70.0 EXAM - ROUTINE H&P 04/06/2013 LATRICE SEARCH ENGINE MARKETING SPECIALIST, TERRY S 285.9 ANEMIA 04/06/2013 LATRICE SEARCH ENGINE MARKETING SPECIALIST, TERRY S 285.9 ANEMIA 04/06/2013 LATRICE SEARCH ENGINE MARKETING SPECIALIST, TERRY S 285.9 ANEMIA 04/06/2013 LATRICE SEARCH ENGINE MARKETING SPECIALIST, TERRY S 285.9 ANEMIA 04/06/2013 LATRICE SEARCH ENGINE MARKETING SPECIALIST, TERRY S 285.9 ANEMIA 04/12/2013 LATRICE SEARCH ENGINE MARKETING SPECIALIST, TERRY S 244.9 HYPOTHYROIDISM 04/12/2013 LATRICE SEARCH ENGINE MARKETING SPECIALIST, TERRY S 250.00 DIABETES MELLITUS TYPE 2 04/12/2013 LATRICE SEARCH ENGINE MARKETING SPECIALIST, TERRY S 244.9 HYPOTHYROIDISM 04/12/2013 LATRICE SEARCH ENGINE MARKETING SPECIALIST, TERRY S 250.00 DIABETES MELLITUS TYPE 2 04/12/2013 LATRICE SEARCH ENGINE MARKETING SPECIALIST, TERRY S 244.9 HYPOTHYROIDISM 04/12/2013 LATRICE SEARCH ENGINE MARKETING SPECIALIST, TERRY S 250.00 DIABETES MELLITUS TYPE 2 04/12/2013 LATRICE SEARCH ENGINE MARKETING SPECIALIST, TERRY S 244.9 HYPOTHYROIDISM 04/12/2013 LATRICE SEARCH ENGINE MARKETING SPECIALIST, TERRY S 250.00 DIABETES MELLITUS TYPE 2 04/12/2013 LATRICE SEARCH ENGINE MARKETING SPECIALIST, TERRY S 244.9 HYPOTHYROIDISM 04/12/2013 LATRICE SEARCH ENGINE MARKETING SPECIALIST, TERRY S 250.00 DIABETES MELLITUS TYPE 2 04/17/2013 LATRICE SEARCH ENGINE MARKETING SPECIALIST, TERRY S 242.90 HYPERTHYROIDISM 04/17/2013 LATRICE SEARCH ENGINE MARKETING SPECIALIST, TERRY S 242.90 HYPERTHYROIDISM 04/17/2013 LATRICE SEARCH ENGINE MARKETING SPECIALIST, TERRY S 242.90 HYPERTHYROIDISM 04/17/2013 LATRICE SEARCH ENGINE MARKETING SPECIALIST, TERRY S 242.90 HYPERTHYROIDISM 03/05/2014 LATRICE SEARCH ENGINE MARKETING SPECIALIST, TERRY S 782.3 EDEMA 03/05/2014 LATRICE SEARCH ENGINE MARKETING SPECIALIST, TERRY S 786.2 COUGH 03/05/2014 LATRICE SEARCH ENGINE MARKETING SPECIALIST, TERRY S 782.3 EDEMA 03/05/2014 TERRY POLLARD APRN S 786.2 COUGH 03/27/2014 TERRY POLLARD APRN S 459.81 VENOUS (PERIPHERAL) INSUFFICIENCY UNSPECIFIED 04/30/2014 TERRY POLLARD PHARMACY SPECIALIST Ot 729.81 06/04/2014 TERRY POLLARD PHARMACY SPECIALIST Ot 729.81 12/28/2014 TERRY POLLARD PHARMACY SPECIALIST Ot 729.81 05/18/2015 JUNI MAKI, SHARMIN T Ot E11.649 TYPE 2 DIABETES MELLITUS WITH HYPOGLYCEM 05/18/2015 JUNI MAKI, SHARMIN T Ot E87.6 HYPOKALEMIA 05/18/2015 JUNI MAKI, SHARMIN T Ot I10 ESSENTIAL (PRIMARY) HYPERTENSION 05/18/2015 JUNI MAKI, SHARMIN T Ot N17.9 ACUTE KIDNEY FAILURE, UNSPECIFIED 05/18/2015 JUNI MAKI, SHARMIN T Ot N39.0 URINARY TRACT INFECTION, SITE NOT SPECIF 05/18/2015 TERRY POLLARD PHARMACY SPECIALIST Ot 729.81 05/31/2015 JUNI MAKI, SHARMIN T Ot E11.649 05/31/2015 JUNI MAKI, SHARMIN T Ot E87.6 05/31/2015 JUNI MAKI, SHARMIN T Ot I10 05/31/2015 JUNI MAKI, SHARMIN T Ot N17.9 05/31/2015 JUNI MAKI, SHARMIN T Ot N39.0 05/28/2016 VIKY MELÉNDEZ PITCHING COACH-C Ot D64.9 ANEMIA, UNSPECIFIED 05/28/2016 VIKY MELÉNDEZ PITCHING COACH-C Ot E83.39 OTHER DISORDERS OF PHOSPHORUS METABOLISM 05/28/2016 VIKY MELÉNDEZ PITCHING COACH-C Ot E87.5 HYPERKALEMIA 05/28/2016 VIKY MELÉNDEZ PITCHING COACH-C Ot E88.09 OTH DISORDERS OF PLASMA-PROTEIN METABOLI 05/28/2016 VIKY MELÉNDEZ PITCHING COACH-C Ot I12.9 HYPERTENSIVE CHRONIC KIDNEY DISEASE W ST 05/28/2016 VIKY MELÉNDEZ PITCHING COACH-C Ot N18.4 CHRONIC KIDNEY DISEASE, STAGE 4 (SEVERE) 05/28/2016 NEW, VIKY G. PITCHING COACH-C Ot N32.9 BLADDER DISORDER, UNSPECIFIED 05/28/2016 NEW, VIKY G. PITCHING COACH-C Ot D64.9 ANEMIA, UNSPECIFIED 05/28/2016 NEW, VIKY G. PITCHING COACH-C Ot E83.39 OTHER DISORDERS OF PHOSPHORUS METABOLISM 05/28/2016 NEW, VIKY G. PITCHING COACH-C Ot E87.5 HYPERKALEMIA 05/28/2016 NEW, VIKY G. PITCHING COACH-C Ot E88.09 OTH DISORDERS OF PLASMA-PROTEIN METABOLI 05/28/2016 NEW, VIKY G. PITCHING COACH-C Ot I12.9 HYPERTENSIVE CHRONIC KIDNEY DISEASE W ST 05/28/2016 NEW, VIKY G. PITCHING COACH-C Ot N18.4 CHRONIC KIDNEY DISEASE, STAGE 4 (SEVERE) 05/28/2016 NEW, VIKY G. PITCHING COACH-C Ot N32.9 BLADDER DISORDER, UNSPECIFIED 06/02/2016 NEW, VIKY G. PITCHING COACH-C Ot D64.9 ANEMIA, UNSPECIFIED 06/02/2016 NEW, VIKY G. PITCHING COACH-C Ot E83.39 OTHER DISORDERS OF PHOSPHORUS METABOLISM 06/02/2016 NEW, VIKY G. PITCHING COACH-C Ot E87.5 HYPERKALEMIA 06/02/2016 NEW, VIKY G. PITCHING COACH-C Ot E88.09 OTH DISORDERS OF PLASMA-PROTEIN METABOLI 06/02/2016 NEW, VIKY G. PITCHING COACH-C Ot I12.9 HYPERTENSIVE CHRONIC KIDNEY DISEASE W ST 06/02/2016 NEW, VIKY G. PITCHING COACH-C Ot N18.4 CHRONIC KIDNEY DISEASE, STAGE 4 (SEVERE) 06/02/2016 NEW, VIKY G. PITCHING COACH-C Ot N32.9 BLADDER DISORDER, UNSPECIFIED 06/08/2016 NEW, VIKY G. PITCHING COACH-C Ot D64.9 ANEMIA, UNSPECIFIED 06/08/2016 NEW, VIKY G. PITCHING COACH-C Ot E83.39 OTHER DISORDERS OF PHOSPHORUS METABOLISM 06/08/2016 NEW, VIKY G. PITCHING COACH-C Ot E87.5 HYPERKALEMIA 06/08/2016 NEW, VIKY G. PITCHING COACH-C Ot E88.09 OTH DISORDERS OF PLASMA-PROTEIN METABOLI 06/08/2016 NEW, VIKY G. PITCHING COACH-C Ot I12.9 HYPERTENSIVE CHRONIC KIDNEY DISEASE W ST 06/08/2016 VIKY MELÉNDEZ RyanMarcello PITCHING COACH-C Ot N18.4 CHRONIC KIDNEY DISEASE, STAGE 4 (SEVERE) 06/08/2016 NEWVIKYMarcello PITCHING COACH-C Ot N32.9 BLADDER DISORDER, UNSPECIFIED 06/28/2016 WIN DO, VIKY K Ot E11.40 TYPE 2 DIABETES MELLITUS WITH DIABETIC N 06/28/2016 WIN DO, VIKY K Ot I12.9 HYPERTENSIVE CHRONIC KIDNEY DISEASE W ST 06/28/2016 WIN DO, VIKY K Ot I87.2 VENOUS INSUFFICIENCY (CHRONIC) (PERIPHER 06/28/2016 WIN DO, VIKY K Ot N18.4 CHRONIC KIDNEY DISEASE, STAGE 4 (SEVERE) 06/28/2016 IWN DO, VIKY K Ot R22.43 LOCALIZED SWELLING, MASS AND LUMP, LOWER 06/28/2016 WIN DO, VIKY K Ot Z79.4 CHCF (CURRENT) USE OF INSULIN 06/28/2016 WIN DO, VIKY K Ot Z79.84 SHEET TURNER (CURRENT) USE OF ORAL HYPOGLYC 06/28/2016 WIN DO, VIKY K Ot Z79.899 OTHER [facility] (CURRENT) DRUG THERAPY 06/30/2016 WIN DO, VIKY [...] 06/30/2016 WIN DO, VIKY K Ot Z79.4 [facility] (CURRENT) USE OF INSULIN 06/30/2016 WIN DO, VIKY K Ot Z79.84 [facility] (CURRENT) USE OF ORAL HYPOGLYC 06/30/2016 WIN DO, VIKY K Ot Z79.899 OTHER SHEET TURNER (CURRENT) DRUG THERAPY 08/14/2016 WIN DO, VIKY K Ot E11.40 TYPE 2 DIABETES MELLITUS WITH DIABETIC N 08/14/2016 WIN DO, VIKY K Ot I12.9 HYPERTENSIVE CHRONIC KIDNEY DISEASE W ST 08/14/2016 WIN DO, VIKY K Ot I87.2 VENOUS INSUFFICIENCY (CHRONIC) (PERIPHER 08/14/2016 WIN DO, VIKY K Ot N18.4 CHRONIC KIDNEY DISEASE, STAGE 4 (SEVERE) 08/14/2016 WIN DO, VIKY K Ot R22.43 LOCALIZED SWELLING, MASS AND LUMP, LOWER 08/14/2016 WIN DO, VIKY K Ot Z79.4 SHEET TURNER (CURRENT) USE OF INSULIN 08/14/2016 WIN DO, VIKY K Ot Z79.84 [facility] (CURRENT) USE OF ORAL HYPOGLYC 08/14/2016 WIN DO, VIKY K Ot Z79.899 OTHER [facility] (CURRENT) DRUG THERAPY 03/28/2017 RIKA VIKY G. PITCHING COACH-C Ot D64.9 ANEMIA, UNSPECIFIED 03/28/2017 NEW VIKY G. PITCHING COACH-C Ot E83.39 OTHER DISORDERS OF PHOSPHORUS METABOLISM 03/28/2017 NEW VIKY G. PITCHING COACH-C Ot E87.5 HYPERKALEMIA 03/28/2017 RIKA VIKY G. PITCHING COACH-C Ot E88.09 OTH DISORDERS OF PLASMA-PROTEIN METABOLI 03/28/2017 NEW VIKY G. PITCHING COACH-C Ot I12.9 HYPERTENSIVE CHRONIC KIDNEY DISEASE W ST 03/28/2017 NEW VIKY G. PITCHING COACH-C Ot N18.4 CHRONIC KIDNEY DISEASE, STAGE 4 (SEVERE) 03/28/2017 NEW VIKY G. 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 03/28/2017 MASON MCCANN MD Ot N18.6 END STAGE RENAL DISEASE 03/28/2017 MASON MCCANN MD Ot R11.2 NAUSEA WITH VOMITING, UNSPECIFIED 03/28/2017 MASON MCCANN MD Ot R19.7 DIARRHEA, UNSPECIFIED 03/28/2017 MASON MCCANN MD, Ot Z79.4 SHEET TURNER (CURRENT) USE OF INSULIN 03/28/2017 MASON MCCANN MD, Ot Z99.2 DEPENDENCE ON RENAL DIALYSIS 04/01/2017 SHARMIN ALFREDO MD, Ot E11.22 TYPE 2 DIABETES MELLITUS W DIABETIC RECORDS MANAGEMENT ANALYST 04/01/2017 SHARMIN ALFREDO MD, Ot E11.51 TYPE 2 DIABETES W DIABETIC PERIPHERAL AN 04/01/2017 SHARMIN ALFREDO MD, Ot E11.65 TYPE 2 DIABETES MELLITUS WITH HYPERGLYCE 04/01/2017 SHARMIN ALFREDO MD, Ot E87.2 ACIDOSIS 04/01/2017 SHARMIN ALFREDO MD, Ot I12.0 HYP CHR KIDNEY DISEASE W STAGE 5 CHR KID 04/01/2017 SHARMIN ALFREDO MD, Ot I73.9 PERIPHERAL VASCULAR DISEASE, UNSPECIFIED 04/01/2017 SHARMIN ALFREDO MD, Ot N18.6 END STAGE RENAL DISEASE 04/01/2017 SHARMIN ALFREDO MD, Ot R56.9 UNSPECIFIED CONVULSIONS 04/01/2017 SHARMIN ALFREDO MD, Ot Z77.22 CNTCT W AND EXPSR TO ENVIRON TOBACCO SMO 04/01/2017 SHARMIN ALFREDO MD, Ot Z79.4 [facility] (CURRENT) USE OF INSULIN 04/01/2017 SHARMIN ALFREDO MD, Ot Z86.73 PRSNL HX OF TIA (TIA), AND CEREB INFRC W Procedures Code Description [place] [address] A1C (IN-HOUSE) 02/28/2013 04312 MICRO ALBUMIN-IN HOUSE 02/28/2013 75936 MICROALBUMIN 02/28/2013 96871 ROUTINE VENIPUNCTURE 04/06/2013 IRGROUP IRON GROUP (Iron,TIBC, Ferritin) 04/06/2013 9898258 GFR CALC (RESULT ONLY) 04/06/2013 07539 CMP 04/06/2013 66944 LIPID PANEL 04/06/2013 44471 CBC 04/06/2013 07623 TSH 04/06/2013 82567 C-PEPTIDE 04/07/2013 29883 IRON SERUM 04/11/2013 39328 IRON BNDNG CAP 04/11/2013 21667 FERRITIN 04/11/2013 93449 ROUTINE VENIPUNCTURE 03/05/2014 72574 MICRO ALBUMIN-IN HOUSE 03/05/2014 00196 A1C (IN-HOUSE) 03/05/2014 76872 CBC 03/06/2014 18907 URIC ACID 03/06/2014 25883 MICROALBUMIN 03/06/2014 Results Test Result Range Complete [...] measurement by glucometer (mass/volume) 384 mg/dL 70-110 Capillary blood glucose measurement by glucometer (mass/volume) - 03/30/17 19: 44 Capillary blood glucose measurement by glucometer (mass/volume) > mg /dL 70-110 Complete blood count (CBC) with automated white blood cell (WBC) differential - 03/30/17 19:45 Blood leukocytes automated count (number/volume) 13.5 10*3/uL 4.3-11.0 Blood erythrocytes automated count (number/volume) 4.22 10*6/uL 4.35-5.85 Venous blood hemoglobin measurement (mass/volume) 11.9 g/dL 13.3-17.7 Blood hematocrit (volume fraction) 32 % 40-54 Automated erythrocyte mean corpuscular volume 75 [foz_us] 80-99 Automated erythrocyte mean corpuscular hemoglobin (mass per erythrocyte) 28 pg 25-34 Automated erythrocyte mean corpuscular hemoglobin concentration measurement ( mass/volume) 38 g/dL 32-36 Automated erythrocyte distribution width ratio 15.0 % 10.0-14.5 Automated blood platelet count (count/volume) 290 10*3/uL 130-400 Automated blood platelet mean volume measurement 11.0 [foz_us] 7.4-10.4 Automated blood neutrophils/100 leukocytes 84 % 42-75 Automated blood lymphocytes/100 leukocytes 9 % 12-44 Blood monocytes/100 leukocytes 6 % 0-12 Automated blood eosinophils/100 leukocytes 1 % 0-10 Automated blood basophils/100 leukocytes 0 % 0-10 Blood neutrophils automated count (number/volume) 11.4 10*3 1.8-7.8 Blood lymphocytes automated count (number/volume) 1.3 10*3 1.0-4.0 Blood monocytes automated count (number/volume) 0.8 10*3 0.0-1.0 Automated eosinophil count 0.1 10*3/uL 0.0-0.3 Automated blood basophil count (count/volume) 0.0 10*3/uL 0.0-0.1 PT panel in platelet poor plasma by coagulation assay - 03/30/17 19:45 Prothrombin time (PT) in platelet poor plasma by coagulation assay 13.0 s 12.2-14.7 INR in platelet poor plasma or blood by coagulation assay 1.0 0.8-1.4 Activated partial thromboplastin time (aPTT) in platelet poor plasma bycoagulation assay - 03/30/17 19:45 Activated partial thromboplastin time (aPTT) in platelet poor plasma bycoagulation assay 24 s 24-35 Fibrin D-dimer FEU measurement in platelet poor plasma (mass/volume) - 19:45 Fibrin D-dimer FEU measurement in platelet poor plasma (mass/volume) 0.43 ug/mL 0.00-0.49 Comprehensive metabolic panel - 03/30/17 19:45 Serum or plasma sodium measurement (moles/volume) 126 mmol/L 135-145 Serum or plasma potassium measurement (moles/volume) 3.4 mmol/L 3.6-5.0 Serum or plasma chloride measurement (moles/volume) 89 mmol/L 98-107 Carbon dioxide 14 mmol/L 21-32 Serum or plasma anion gap determination (moles/volume) 23 mmol/L 5-14 Serum or plasma urea nitrogen measurement (mass/volume) 27 mg/dL 7-18 Serum or plasma creatinine measurement (mass/volume) 7.52 mg/dL 0.60-1.30 Serum or plasma urea nitrogen/creatinine mass ratio 4 NRG Serum or plasma creatinine measurement with calculation of estimated glomerular filtration rate 9 NRG Serum or plasma glucose measurement (mass/volume) 764 mg/dL 70-105 Serum or plasma calcium measurement (mass/volume) 7.7 mg/dL 8.5-10.1 Serum or plasma total bilirubin measurement (mass/volume) 0.3 mg/dL 0.1-1.0 Serum or plasma alkaline phosphatase measurement (enzymatic activity/volume) 159 U/L 40-136 Serum or plasma aspartate aminotransferase measurement (enzymatic activity/ volume) 19 U/L 5-34 Serum or plasma alanine aminotransferase measurement (enzymatic activity/volume ) 14 U/L 0-55 Serum or plasma protein measurement (mass/volume) 7.7 g/dL 6.4-8.2 Serum or plasma albumin measurement (mass/volume) 3.9 g/dL 3.2-4.5 Serum or plasma creatine kinase measurement (enzymatic activity/volume) - 03/30 19:45 Serum or plasma creatine kinase measurement (enzymatic activity/volume) 388 U/L 30-200 Serum or plasma creatine kinase MB measurement (enzymatic activity/volume) - 19:45 Serum or plasma creatine kinase MB measurement (enzymatic activity/volume) 5.8 ng/mL <6.6 Serum or plasma troponin i.cardiac measurement (mass/volume) - 03/30/17 19:45 Serum or plasma troponin i.cardiac measurement (mass/volume) < ng/ mL <0.30 Myoglobin, serum - 03/30/17 19:45 Myoglobin, serum 387.0 ng/mL 10.0-92.0 Serum or plasma thyrotropin measurement by detection limit <=0.05 miu/l (units/ volume) - 03/30/17 19:45 Serum or plasma thyrotropin measurement by detection limit <=0.05 miu/l (units/ volume) 1.66 u[iU]/mL 0.35-4.94 Serum or plasma salicylates measurement (mass/volume) - 03/30/17 19:45 Serum or plasma salicylates measurement (mass/volume) < mg/dL 5.0-20.0 Serum or plasma acetaminophen measurement (mass/volume) - 03/30/17 19:45 Serum or plasma acetaminophen measurement (mass/volume) < ug/mL 10-30 Serum or plasma ethanol measurement (mass/volume) - 03/30/17 19:45 Serum or plasma ethanol measurement (mass/volume) < mg/dL <10 Urine drug screening test - 03/30/17 19:45 Urine phencyclidine detection by screening method NEGATIVE NEGATIVE Urine benzodiazepines detection by screening method NEGATIVE NEGATIVE Urine cocaine detection NEGATIVE NEGATIVE Urine amphetamines detection by screening method NEGATIVE NEGATIVE Urine methamphetamine detection by screening method NEGATIVE NEGATIVE Urine cannabinoids detection by screening method NEGATIVE NEGATIVE Urine opiates detection by screening method NEGATIVE NEGATIVE Urine barbiturates detection NEGATIVE NEGATIVE Screening urine tricyclic antidepressants detection NEGATIVE NEGATIVE Urine methadone detection by screening method NEGATIVE NEGATIVE Urine oxycodone detection NEGATIVE NEGATIVE Urine propoxyphene detection NEGATIVE NEGATIVE Complete urinalysis with reflex to culture - 03/30/17 19:45 Urine color determination YELLOW NRG Urine clarity determination CLEAR NRG Urine pH measurement by test strip 5 5-9 Specific gravity of urine by test strip 1.005 1.016- 1.022 Urine protein assay by test strip, semi-quantitative 3+ NEGATIVE Urine glucose detection by automated test strip 4+ NEGATIVE Erythrocytes detection in urine sediment by light microscopy 3+ NEGATIVE Urine ketones detection by automated test [...] urine sediment by light microscopy NONE NRG Crystals detection in urine sediment by light microscopy NONE NRG Casts detection in urine sediment by light microscopy NONE NRG Mucus detection in urine sediment by light microscopy NEGATIVE NRG Complete urinalysis with reflex to culture NO NRG Blood lactic acid measurement (moles/volume) - 03/30/17 21:11 Blood lactic acid measurement (moles/volume) 6.87 mmol/L 0.50-2.00 Capillary blood glucose measurement by glucometer (mass/volume) - 03/30/17 21: 23 Capillary blood glucose measurement by glucometer (mass/volume) 534 mg/dL 70-110 Serum or plasma lactate measurement (moles/volume) - 03/30/17 23:10 Serum or plasma lactate measurement (moles/volume) 3.78 mmol/L 0.50-2.00 Capillary blood glucose measurement by glucometer (mass/volume) - 03/30/17 23: 43 Capillary blood glucose measurement by glucometer (mass/volume) 302 mg/dL 70-110 Encounters ACCT No. Visit Date/Time Discharge Status Pt. Type Provider Facility Loc./Unit Complaint [id number] 03/27/2014 11:38:00 03/27/2014 23:59:59 CLS Outpatient LATRICE SEARCH ENGINE MARKETING SPECIALISTNUA S [id number] 03/05/2014 16:08:00 03/05/2014 23:59:59 CLS Outpatient LATRICE LAUNNUA S [id number] 10/24/2013 14:36:00 10/24/2013 23:59:59 CLS Outpatient LATRICE SEARCH ENGINE MARKETING SPECIALISTMINNIETERRY S [id number] 04/17/2013 09:43:00 04/17/2013 23:59:59 CLS Outpatient LATRICE SEARCH ENGINE MARKETING SPECIALISTMINNIETERRY S [id number] 04/06/2013 09:25:00 04/06/2013 23:59:59 CLS Outpatient LATRICE SEARCH ENGINE MARKETING SPECIALISTMINNIETERRY S [id number] 02/28/2013 09:49:00 02/28/2013 23:59:59 CLS Outpatient NU POLLARD APRNA S [id number] 03/30/2017 19:41:00 03/31/2017 00:59:00 DIS Outpatient SHARMIN ALFREDO MD [facility] ER SEIZURE [id number] 03/28/2017 14:06:00 03/28/2017 21:08:00 DIS Emergency MASON MCCANN MD [facility] ER N/V/ELEV BS [id number] 06/28/2016 08:04:00 06/28/2016 10:30:00 DIS Emergency VIKY WALDEN DO [facility] ER LEG SWELLING [id number] 05/27/2016 13:52:00 05/27/2016 23:59:59 CLS Outpatient VIKY MELÉNDEZ NP-C [facility] RAD CHRONIC KIDNEY DISEASE, ANEMIA,DIABETES [id number] 05/18/2015 17:16:00 05/18/2015 21:03:00 DIS Emergency SHARMIN ALFREDO MD [facility] ER LOW BLOOD SUGAR [id number] 04/27/2014 11:01:00 04/27/2014 23:59:59 CLS Outpatient LATRICE TERRY MOHAN [facility] RAD
[2017-04-06 01:50] VITALS: BP 146/88
[2017-04-06] MEDS: FERROUS SULF 325 MG (IRON) TAB PO SCH (06:02)
[2017-04-06 07:19] LABS: HEMOGLOBIN 10.6 G/DL (13.3-17.7); MEAN PLATELET VOLUME 9.7 FL (7.4-10.4); RED BLOOD COUNT 3.8 10^6/uL (4.35-5.85); WHITE BLOOD COUNT 7.6 10^3/uL (4.3-11.0)
[2017-04-06 07:44] LABS: ALBUMIN 3.2 GM/DL (3.2-4.5); BILIRUBIN,TOTAL 0.3 MG/DL (0.1-1.0); CALCIUM 8.2 MG/DL (8.5-10.1); CREATININE SERUM 4.86 MG/DL (0.60-1.30); POTASSIUM 4.1 MMOL/L (3.6-5.0); TOTAL PROTEIN 6.7 GM/DL (6.4-8.2)
[2017-04-06] MEDS: amLODIPine 5 MG (NORVASC) TAB PO SCH (08:49)
[2017-04-06] MEDS: ASCORBIC ACID (VIT C) 500 MG TABLET PO SCH (08:49)
[2017-04-06] MEDS: meTOprolol SUCCINATE 100 MG (TOPROL XL) TAB PO SCH (08:49)
--- NOTE | 2017-04-06 08:55 | Physical Therapy Evaluation ---
PT Evaluation-General Medical Diagnosis Admission Date Apr 06, 2017 at 01:33 Medical Diagnosis: debility Onset Date: Mar 28, 2017 Therapy Diagnosis Therapy Diagnosis: impaired mobility, strength, endurance, balance Height/Weight Height (Feet): 5 Height (Inches): 8.00 Weight (Pounds): 160 Weight (Ounces): 0.0 Precautions Precautions/Isolations: Fall Prevention, Standard Precautions Referral Physician: Slim Reason for Referral: Evaluation/Treatment Medical History Pertinent Medical History: DM, HTN, PVD Additional Medical History chronic kidney disease, charcot foot left side, anemia, possible seizures Current History patient went to ER with nausea, weakness, facial droop, diff swallowing --> seizures, DKA, resp failure, metabolic acidosis Social History Home: Single Level Current Living Status: Children Entry Into Home: Stairs With Railing PT Steps Into Home: 4 Prior/Core FIM Prior Level of Function Functional [place] Measure 0=Not Assessed/NA 4=Minimal Assistance 1=Total Assistance 5=Supervision or Setup 2=Maximal Assistance 6=Modified [place] 3=Moderate Assistance 7=Complete [place] Bed Mobility: 7 Transfers (B,C,W/C) (FIM): 7 Gait: 7 Patient was not using any assistive devices for mobility but he does state that he had some kind of orthotic for his charcot foot. PT Evaluation-Current Subjective Pt is laying in bed pre tx and agrees to PT. Pt has complaints of pain but did not report pain location or numerical value. Pt reported some dizziness in the recent past. Pt/Family Goals [place] at home Objective Patient Orientation: Normal For Age ROM/Strength ROM Lower Extremities PROM: Hip IR and ER: limited vijaya, Ankle DF and PF: limited vijaya. Hip flexion, knee flexion, knee extension: WNL vijaya Strenght Lower Extremities right lower extremity 4+/5 gross, left lower extremity 4/5 gross. When asked, patient states that he feels like his right side is weaker than his left. Neuromuscular (Tone, Coordination, Reflexes) Babinski: Negative vijaya Segura's: Negative vijaya Clonus: Negative vijaya Tinetti Balance Assessment: , indicating high fall risk Patient has intact light touch sensation in bilateral lower extremities, he states that he has occasional numbness from peripheral neuropathy but had no complaints of that today. Patient had normal tracking but seemed to have impaired peripheral vision bilaterally. No facial droop observed. Sensory Vision: Hearing: Functional Sensation Right Lower Extremit: Intact Sensation Left Lower Extremity: Intact Transfers Functional [place] Measure 0=Not Assessed/NA 4=Minimal Assistance 1=Total Assistance 5=Supervision or Setup 2=Maximal Assistance 6=Modified [place] 3=Moderate Assistance 7=Complete IndependenceIRFPAI Quality Coding Scale 6 Independent with activity with or without an assistive device 5 Patient requires set up or clean up by helper. Patient completes activity by themselves 4 Supervision or touching assist (CGA). Reading provide cues , steadying assist 3 The helper provides less than half the effort to complete the activity 2 The helper provides more than half the effort to complete the activity 1 Dependent. The helper does all the effort to complete an activity 7 Patient refused to complete or attempt activity 9 The patient did not perform the activity before the current illness or injury 88 Not attempted due to Medical conditions or safety concerns Transfers (B, C, W/C) (FIM): 4 Scootin Rollin Roll Left to Right (QC): 4 Supine to/from Sit: 5 Sit to/from Stand: 4 Sit to Lying (QC): 4 Lying to Sitting/Side of Bed(Q: 4 Sit to Stand (QC): 4 Chair/[id number]-ls-Uoxfp Xfer(QC): 4 Car Transfer (QC): 4 Patient performed bed mobility with SBA, supine to sit with SBA, sit to stand and stand pivot with CGA, and car transfer with CGA. Patient needed occasional cues for safety and hand placement. Gait Does the Patient Walk?: Yes Mode of Locomotion: Walk Anticipated Mode of Locomotion: Walk Gait (FIM): 4 Walk 10 feet (QC): 4 Walk 50 ft with 2 Turns(QC): 4 Walk 150 ft (QC): 4 Walking 10ft/uneven surface-QC: 4 Distance: 200', 150' Gait Level of Assist: 4 Gait Persons Needed: 1 Gait Assistive Device: FWW Comments/Gait Description Patient ambulated 200' with a rolling walker with CGA, including 50' with at least 2 turns of 90 degrees and 10' over an uneven surface. Ambulation was slow. Wheelchair Training Does the Pt Use a Wheelchair?: No Stairs Stairs (FIM): 2 #of Steps: 4 Level of Assist: 4 1 Step (curb) (QC): 4 4 Steps (QC): 4 12 Steps (QC): 88 Patient can go up and down 4 steps using 1 handrail with CGA. Cues for safety, direction, and foot placement. Balance Sitting Static: Normal Sitting Dynamic: Normal Standing Static: Fair Standing Dynamic: Poor Picking up an Object (QC): 4 Special Test Comments Tinetti: , indicating high fall risk Assessment/Needs Patient has impairments in strength, mobility, endurance, and balance. He is a high fall risk at this time and needs to ambulate with a rolling walker. Rehab Potential: Fair PT Short Term Goals Short Term Goals Time Frame: Apr 13, 2017 Transfers (B,C,W/C) (FIM): 5 Gait (FIM): 5 Gait Distance Comment: 300' Gait Level of Assist: 5 Gait Assistive Device: FWW PT Nursing Home Goals Programmer Analyst Goals PT Nursing Home Goals Time Frame: Apr 27, 2017 Transfers (B,C,W/C) (FIM): 6 Sit to Lying (QC): 6 Lying-Sitting on Side/Bed(QC): 6 Sit to Stand (QC): 6 Rollin Roll Left to Right (QC): 6 Chair/Rrq-sb-Yvkgb Xfer(QC): 6 Car Transfer (QC): 4 Gait (FIM): 6 Distance: 400' Walk 10 feet (QC): 6 Walk 10ft-Uneven Surface(QC): 6 Walk 50ft with 2 Turns (QC): 6 Walk 150 ft (QC): 6 Gait Level of Assist: 6 Gait Assistive Device: FWW Stairs (FIM): 5 # of Steps: 12 1 Step (curb) (QC): 4 4 Steps (QC): 4 12 Steps (QC): 4 Stairs Level Of Assist: 5 Picking up an Object (QC): 4 PT Plan Problem List Problem List: Activity Tolerance, Functional Strength, Safety, Balance, Gait, Transfer, Bed Mobility, ROM Treatment/Plan Treatment Plan: Continue Plan of Care Treatment Plan: Bed Mobility, Education, Functional Activity Lynne, Functional Strength, Group Therapy, Gait, Safety, Therapeutic Exercise, Transfers Treatment Duration: Apr 27, 2017 Frequency: At least 5 of 7 days/Wk (IRF) Estimated Hrs Per Day: 1.5 hours per day Patient and/or Family Agrees t: Yes Safety Risks/Education Patient Education: Gait Training, Transfer Techniques, Steps, Correct Positioning, Safety Issues Teaching Recipient: Patient Teaching Methods: Demonstration, Discussion Response to Teaching: Reinforcement Needed Discharge Recommendations Plan Patient will perform bed mobility and transfer training, balance and endurance training, functional strengthening, stair training, gait training, and education to improve functional mobility and independence at home. Therapy D/C Recommendations: Home w/ Family Support Time/GCodes Time In: 800 Time Out: 900 Total Billed Treatment Time: 60 Total Billed Treatment 1 visit EV 30' FA 15' GT 15' RAQUEL CUEVAS PT Apr 06, 2017 08:55
--- NOTE | 2017-04-06 09:14 | PM&R Post Admission Assessment ---
Post Admission Physician Asses The preadmission screen agrees with the post admission assessment that the patient is a good candidate for inpatient rehabilitation. The patient will have a comprehensive program of inpatient rehabilitation with a goal of maximizing level of functional independence prior to discharge home with family. The patient will have PT/OT ninety minutes per day, each discipline, five days a week for gait, strengthening, conditioning, balance, ADLs, any patient/family/caregiver training as necessary. Speech therapy to do cognitive assessment and treat as indicated. Rehabilitation nursing to assist with bowel, bladder, skin, wound care, medication administration, pain management. Property Maintenance Technician to assist with discharge planning, community reentry. SCD's for DVT prophylaxis. He appears to be well motivated to participate in three hours of therapy a day. He should be able to tolerate three hours of therapy a day from a medical standpoint. He should benefit from the three hours of therapy a day. He has a reasonable discharge plan, reasonable discharge rehabilitation goals and a supportive family. He has various comorbidities that need to be closely monitored with medications and treatments adjusted on a daily basis as needed. He is placed on a 15 hours of therapy in 7 days schedule due to HD for ESRD TIW. These include: HTN ESRD DM Barriers to discharge for this patient who had been independent prior to this are for him to be modified independent to supervision for ADLs and mobility skills prior to discharge home with family, so as to lessen the burden of the caregivers. Risks for this patient include: 1. Fall 2. Fracture 3. DVT 4. Pulmonary embolism 5. Fluid overload 6. Skin breakdown 7. Contractures 8. Poorly controlled pain 9. Urinary retention 10. UTI 11. Respiratory infection 12. Aspiration 13. Poorly controlled HTN 14. Poorly controlled DM Estimated Length of Stay: 14 days Prognosis: Rehab prognosis appears good for goal of discharge home with family modified independent to supervision for ADLs and mobility skills. LOI FLEMING MD Apr 06, 2017 09:14
--- NOTE | 2017-04-06 10:59 | HISTORY AND PHYSICAL ---
DATE OF SERVICE: CHIEF COMPLAINT: Difficulty with walking. HISTORY OF PRESENT ILLNESS: The patient is a 51-year-old disabled male with end-stage renal disease, on dialysis three times a week since this past December who was admitted to [facility] for further evaluation of seizures. He was initially admitted to [facility] in [place] on 03/28/2017, for possible stroke, but evaluation was negative and he was discharged the following day, went to dialysis on Wednesday the and he began to have seizures at home later that day. He was taken to a local ED and then transferred to [facility]. His local care was provided by [facility]. At [facility], his lactic acid was 6.87. His blood glucose was 764. He was given fluids, IV insulin. He was admitted to the neuro ICU unit loaded with Keppra for seizures and his DKA was treated as per above. He was intubated for a brief period of time and then extubated. He had encephalopathy from all this and had a decline in his functional dependence. He is now referred to inpatient rehabilitation unit at [facility] for ongoing care and therapies with goal of return home with his family in [place]. He had been independent prior to this. PAST MEDICAL HISTORY: Anemia, Charcot foot due to diabetes mellitus, diabetes mellitus, hypertension, peripheral vascular disease, renal failure. PAST SURGICAL HISTORY: Dialysis access. ALLERGIES: No medication allergies. FAMILY HISTORY: Noncontributory. SOCIAL HISTORY: , lives with family, disabled. REVIEW OF SYSTEMS: A 10-point review of systems significant for numbness in feet, weakness. MEDICATIONS: Levemir insulin 10 units at bedtime, Keppra 750 mg p.o. b.i.d., Norvasc 10 mg p.o. daily, vitamin C 500 mg p.o. daily, Toprol-XL 100 mg p.o. daily, ferrous sulfate 325 mg p.o. daily. LABORATORY DATA: Labs this a.m. 123. WBC 7.6, H and H 10.6/29, platelet count 291. Chemistry shows normal serum sodium, potassium chloride, and BUN. Creatinine is elevated at 4.86. Blood glucose 167, glucometer this a.m. 198, calcium 8.2, albumin 3.2. PHYSICAL EXAMINATION: GENERAL: Pleasant man appearing his stated age, lying in bed, in no acute distress. VITAL SIGNS: He is afebrile, pulse 72, respirations 16, blood pressure 146/88, O2 sat 97% on room air. HEENT: Vision, speech, hearing grossly intact. No oral lesion is noted. NECK: Supple without mass. HEART: Regular rhythm. LUNGS: Clear. ABDOMEN: Soft, nontender. Bowel sounds present. EXTREMITIES: No lower leg edema, no calf tenderness. MUSCULOSKELETAL: The patient has functional active range of motion of all 4 extremities but lacks full ankle dorsiflexion. NEUROLOGIC: He reports numbness in the feet. Right lower limb strength 4+/5; left lower limb 4/5, he has 3/5 strength in both upper limbs. He has impaired standing balance. Sensation is grossly intact to touch.cognition-see below FUNCTIONAL STATUS: He is contact guard to standby assist for bed mobility, min assist for transfers, min assist for ambulation short distances with a front wheel walker. He is modified independent for eating and grooming, min assist for upper body dressing, mod assist for lower body dressing and toileting.He has a mild cognitive deficit as per ST. ASSESSMENT: 1. Metabolic encephalopathy secondary to seizures and DKA, now improved but with residual mild cognitive deficit. 2. Type 2 diabetes mellitus with hyperglycemia with long-term use of insulin. 3. Hypertension, controlled with medication. 4. Peripheral vascular disease. 5. Diabetic Charcot foot. 6. Anemia of chronic kidney disease. 7. Stage V chronic kidney disease, on chronic dialysis TIW. PLAN: The patient with have a comprehensive program of inpatient rehabilitation with goal of maximizing level of functional independence prior to discharge home with his family. The patient will have PT, OT 90 minutes per day in each discipline, 5 days a week for gait, strengthening, conditioning, balance, ADLs, any patient family caregiver training necessary, any adaptive equipment and training necessary. Speech therapy to do cognitive assessment,and treat as indicated 30 to 45 minutes per day,five days a week for 7-14 days. He appears to be fairly functional at this point. Rehabilitation nursing to assist with bowel, bladder, skin care, medication administration, pain management. Social service to assist with discharge planning, community reentry. Follow up with [facility] for medical concerns as needed. Continue current renal diet and meds. Monitor blood pressure and Accu-Cheks, and adjust medications as appropriate. Therapy with cardiac and fall precautions. ESTIMATED LENGTH OF STAY: 14 days. PROGNOSIS: Rehabilitation prognosis appears good for a goal of discharging home with his family, modified independent to supervision for ADLs and mobility skills. DIET: Renal diet. Nutritional consult regarding renal diet. CODE STATUS: Full code. Job ID: [id number] DocumentID: [id number] Dictated Date: 04/06/2017 09:34:33 Coremaker Date: 04/06/2017 10:58:35 Dictated By: LOI FLEMING MD MTDD
[2017-04-06] MEDS ORDERED: ASCO-262 PO (11:34)
[2017-04-06] MEDS ORDERED: INSU100I10 SQ (11:34)
[2017-04-06] MEDS ORDERED: AMLO10TA2 PO (11:34)
[2017-04-06] MEDS ORDERED: FERR325T24 PO (11:34)
[2017-04-06] MEDS ORDERED: inSUlin (REGULAR) HUMAN 1 UNIT/0.01 ML (CHARGE PER UNIT) SC SCH ×2 (12:00→16:00)
[2017-04-06] MEDS ORDERED: LEVETIRACETAM 500 MG (KEPPRA) TAB PO SCH (12:00)
--- NOTE | 2017-04-06 13:31 | Consultation (CHS) ---
HPI History of Present Illness: 51 year old male who is seen in consultation for medical management. The patient was transferred from [facility] overnight for inpatient rehabilitation after hospitalization for DKA, possible non-convulsive status and infection. The patient had been brought to [facility] ED on 03/30 after he began "having seizures" at home. He was found to have a blood glucose of 764, an anion gap of 23, and a lactic acid of 6.87. He had multiple seizures in the ED and was intubated by anesthesia after some attempts by the ED staff. He was flown to for further management, and on arrival was found to be hypothermic, hypertensive and bradycardic. He responded well to warming therapy. He was treated with an insulin drip for his DKA and Keppra for his seizure activity, as well as antibiotics. He was successfully extubated and was able to be weaned to room air. He does have known end stage renal disease and is on hemodialysis, which he does on . He started this in December 2016 and currently has a tunneled line in his right subclavian; he reports they are planning to do an AV fistula, but he has been ill off and on since starting dialysis, so they have not proceeded with fistula placement at this time. Per the patient, his plan is ultimately to be placed on the transplant list for a renal transplant. He reports that he does make some urine, although very little. He reports that his normal fluid intake is limited to 32 ounces per day or less. The patient reports that he normally does his dialysis at [facility]; it is well documented in the records from that transportation to dialysis will have to be set up and arranged by family. The patient had dialysis last yesterday afternoon. He reports that his last seizure was last week, he does not think that he has had any since his admission to the hospital. He is here for general strength building after his hospitalization, and his plan is to return home after rehab, which he is anticipating will take 7 -14 days. Source: patient Exam Limitations: no limitations Date seen by provider: Apr 06, 2017 Time Seen by Provider: 11:40 Attending Physician Daniele Smalls MD [facility] Consult Date of Admission Apr 06, 2017 at 01:33 Home Medications Home Medications Reviewed patient Home Medication Reconciliation Form Allergies Coded Allergies: No Known Drug Allergies (Unverified , 3/5/16) [id number] Hx Patient Social History Marrital Status: Number of Children: 1 Living Status: lives with significant other at home Employed/Student: unemployed (disabled) Alcohol Use: Denies Use Recreational Drug Use: No Smoking Status: Never a Smoker 2nd Hand Smoke Exposure: No Recent Foreign Travel: No Contact w/other who traveled: No Recent Hopitalizations: Yes Recent Infectious Disease Expo: No Physical Abuse Screen: No Sexual Abuse: No Immunizations Up To Date Tetanus Booster (TDap): Unknown Date of Influenza Vaccine: Feb 04, 2017 Past Medical History Type II Diabetes Mellitus with complication 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 End Stage Renal Disease on Dialysis since Dec 2016 Hypertension Seizure Disorder Family Medical History Significant Family History: Hypertension Family History: Alcoholism 19 FATHER Alzheimer's disease 19 FATHER Arthritis 19 FATHER Asthma G8 BROTHER Cardiovascular disease 19 MOTHER Cataracts 19 MOTHER Diabetes mellitus 19 MOTHER Hypertension 19 MOTHER Review of Systems (CHC) Constitutional: No chills, No diaphoresis, No dizziness, No fever, No malaise, weakness EENTM: No ear discharge, No hearing loss, No ear pain, No eye pain, No tearing , No epistaxis, No nose congestion, No nose pain Respiratory: No cough, No dyspnea on exertion, No hemoptysis, No orthopnea, No short of breath, No wheezing Cardiovascular: No chest pain, No edema, No Hx of Intervention, No palpitations , No syncope Gastrointestinal: no symptoms reported, No abdominal pain, No constipation, No diarrhea, No nausea, No vomiting Genitourinary: decreased output, No frequency, No hematuria Musculoskeletal: no symptoms reported Skin: no symptoms reported Psychiatric/Neurological: See HPI, Seizure (history of seizures), Weakness Reviewed Test Results Reviewed Test Results Lab Laboratory Tests Test 04/06/17 05:39 04/06/17 07:10 04/06/17 11:14 Range/Units Glucometer 198 H 305 H 70-110 MG/DL White Blood Count 7.6 4.3-11.0 10^3/uL Red Blood Count 3.80 L 4.35-5.85 10^6/uL Hemoglobin 10.6 L 13.3-17.7 G/DL Hematocrit 29 L 40-54 % Mean Corpuscular Volume 76 L 80-99 FL Mean Corpuscular Hemoglobin 28 25-34 PG Mean Corpuscular Hemoglobin Concent 37 H 32-36 G/DL Red Cell Distribution Width 15.0 H 10.0-14.5 % Platelet Count 291 130-400 10^3/uL Mean Platelet Volume 9.7 7.4-10.4 FL Sodium Level 135 135-145 MMOL/L Potassium Level 4.1 3.6-5.0 MMOL/L Chloride Level 100 98-107 MMOL/L Carbon Dioxide Level 24 21-32 MMOL/L Anion Gap 11 5-14 MMOL/L Blood Urea Nitrogen 15 7-18 MG/DL Creatinine 4.86 #H 0.60-1.30 MG/DL Estimat Glomerular Filtration Rate 15 BUN/Creatinine Ratio 3 Glucose Level 167 H 70-105 MG/DL Calcium Level 8.2 L 8.5-10.1 MG/DL Total Bilirubin 0.3 0.1-1.0 MG/DL Aspartate Amino Transf (AST/SGOT) 19 5-34 U/L Alanine Aminotransferase (ALT/SGPT) 11 0-55 U/L Alkaline Phosphatase 105 40-136 U/L Total Protein 6.7 6.4-8.2 GM/DL Albumin 3.2 3.2-4.5 GM/DL Physical Exam-([facility]) Physical Exam Vital Signs VS - Last 72 Hours, by Label 04/06/17 04/06/17 04/06/17 01:50 01:55 09:00 Temp 97.0 Pulse 72 Resp 16 B/P (MAP) 146/88 (107) Pulse Ox 97 O2 Delivery Room Air Room Air Room Air Capillary Refill : General Appearance: WD/WN, no apparent distress Eyes: Bilateral Eye Normal Inspection HEENT: PERRL/EOMI, normal ENT inspection, No scleral icterus (R), No scleral icterus (L), No photophobia Neck: non-tender, full range of motion, supple, normal inspection, No lymphadenopathy (R), No lymphadenopathy (L), No thyromegaly Respiratory: chest non-tender, lungs clear, normal breath sounds, no respiratory distress, no accessory muscle use, No rales, rhonchi, No wheezing Cardiovascular: normal peripheral pulses, regular rate, rhythm, no edema, no gallop, no JVD, no murmur Peripheral Pulses: 2+ Radial Pulses (R), 2+ Radial Pulses (L) Gastrointestinal: normal bowel sounds, non tender, soft, no organomegaly, no pulsatile mass, No guarding, No rebound, No tenderness Back: normal inspection, no CVA tenderness, no vertebral tenderness Extremities: normal range of motion, non-tender, normal inspection, no pedal edema, no calf tenderness Neurologic/Psychiatric: squeak rattle and leak repairer II-XII nml as tested, alert, normal mood/affect, oriented x 3 Skin: normal color, warm/dry Lymphatic: no adenopathy Comments Tunneled line in right subclavian with dressing clean, dry and intact. 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 End Stage Renal Disease, on Hemodialysis Epilepsy Hypertension Anemia History of Status Epilepticus Plan Generalized Weakness and Debility 04/06 -per inpatient rehab team Type II Diabetes Mellitus with Complication 04/06 -10 units Levemir SQ daily -Novolog per sliding scale -Accuchecks AC and HS -Renal Diabetic Diet End Stage Renal Disease, on Hemodialysis 04/06 -continue MWF dialysis at [facility] -fluid restriction of ~32 ounces per day (per patient) -keep tunneled line clean and dry; not to be accessed for use other than dialysis Epilepsy 04/06 -on Keppra 750 mg daily at noon -hold Keppra until after dialysis on MWF Hypertension 04/06 -continue amlodipine 10 mg PO daily -continue Toprolol XL 100 mg PO daily Anemia 04/06 -secondary to chronic kidney disease -hemoglobin stable when compared to records from [facility] Consulted for medical management. Discussed medication dosing and dialysis with nursing staff. Given pt's recent history of status epilepticus requiring intubation, it is extremely important that his Keppra be dosed in a stable fashion, and that his Keppra dose be given immediately upon his return from dialysis on MWF. DPOA: sonJulio Cesar Clinical Quality Measures DVT/VTE Risk/Contraindication: Risk Factor Score Per Nursin RFS Level Per Nursing on Admit: 4+=Very High Copy Copies To 1: [facility] DO Apr 06, 2017 13:31
--- NOTE | 2017-04-06 13:33 | Physical Therapy Daily Note ---
PT Daily Note-Current Subjective Pt is sitting in recliner pre tx and agrees to PT. Pt c/o cloudiness in vision ever since the seizure. Pain Numeric Pain Scale: 0-No Pain Appearance Pt is sitting in recliner post tx with all needs met. Mental Status Patient Orientation: Normal For Age Transfers Functional [place] Measure 0=Not Assessed/NA 4=Minimal Assistance 1=Total Assistance 5=Supervision or Setup 2=Maximal Assistance 6=Modified [place] 3=Moderate Assistance 7=Complete IndependenceIRFPAI Quality Coding Scale 6 Independent with activity with or without an assistive device 5 Patient requires set up or clean up by helper. Patient completes activity by themselves 4 Supervision or touching assist (CGA). [place] provide cues , steadying assist 3 The helper provides less than half the effort to complete the activity 2 The helper provides more than half the effort to complete the activity 1 Dependent. The helper does all the effort to complete an activity 7 Patient refused to complete or attempt activity 9 The patient did not perform the activity before the current illness or injury 88 Not attempted due to Medical conditions or safety concerns Transfers (B, C, W/C) (FIM): 4 Scootin Sit to/from Stand: 4 Pt requires CGA for sit to stand transfer. Gait Training Does the Patient Walk?: Yes Gait (FIM): 4 Distance: 400 feet x1, 100 feet x1 Gait Level of Assist: 4 Gait Persons Needed: 1 Gait Assistive Device: FWW slow, careful ambulation, no LOB Wheelchair Training Does the Pt Use a Wheelchair?: No Exercises NuStep Minutes: 10 NuStep Workload: 3 Treatments Pt performed functional activity, gait training, and exercises. Assessment Current Status: Good Progress Pt is able to perform sit to stand transfer and ambulation with CGA and use of a FWW. During ambulation of 400 feet, pt did not need a break. Pt was able to tolerate 10 minutes with a 3 workload on the NuStep. Pt is making good progress towards goals. PT Short Term Goals Short Term Goals Time Frame: Apr 13, 2017 Transfers (B,C,W/C) (FIM): 5 Gait (FIM): 5 Gait Distance Comment: 300' Gait Level of Assist: 5 Gait Assistive Device: FWW PT Manager Interventional Goals Assisted Goals PT Manager Interventional Goals Time Frame: Apr 27, 2017 Transfers (B,C,W/C) (FIM): 6 Sit to Lying (QC): 6 Lying-Sitting on Side/Bed(QC): 6 Sit to Stand (QC): 6 Rollin Roll Left to Right (QC): 6 Chair/Qnk-lp-[id number] Xfer(QC): 6 Car Transfer (QC): 4 Gait (FIM): 6 Distance: 400' Walk 10 feet (QC): 6 Walk 10ft-Uneven Surface(QC): 6 Walk 50ft with 2 Turns (QC): 6 Walk 150 ft (QC): 6 Gait Level of Assist: 6 Gait Assistive Device: FWW Stairs (FIM): 5 # of Steps: 12 1 Step (curb) (QC): 4 4 Steps (QC): 4 12 Steps (QC): 4 Stairs Level Of Assist: 5 Picking up an Object (QC): 4 PT Plan Problem List Problem List: Activity Tolerance, Functional Strength, Safety, Balance, Gait, Transfer, Bed Mobility, ROM Treatment/Plan Treatment Plan: Continue Plan of Care Treatment Plan: Bed Mobility, Education, Functional Activity Lynne, Functional Strength, Group Therapy, Gait, Safety, Therapeutic Exercise, Transfers Treatment Duration: Apr 27, 2017 Frequency: At least 5 of 7 days/Wk (IRF) Estimated Hrs Per Day: 1.5 hours per day Patient and/or Family Agrees t: Yes Safety Risks/Education Patient Education: Gait Training, Transfer Techniques, Correct Positioning, Safety Issues Teaching Recipient: Patient Teaching Methods: Demonstration, Discussion Response to Teaching: Verbalize Understanding, Return Demonstration, Reinforcement Needed Time/GCodes Time In: 1300 Time Out: 1330 Total Billed Treatment Time: 30 Total Billed Treatment 1 visit 10 min EX 20 min GT RAQUEL CUEVAS PT Apr 06, 2017 13:33
[2017-04-06] MEDS ORDERED: INSU100I14 SQ (13:47)
--- NOTE | 2017-04-06 14:33 | ST Cognitive Linguistic Eval ---
Speech Evaluation-General Medical Diagnosis Debility, Renal Failure Onset Date: Mar 28, 2017 Therapy Diagnosis Therapy Diagnosis: Mild Cognitive Deficit Precautions Precautions/Isolations: Seizure, Fall Prevention, Standard Precautions Referral Referring Physician: Dr. Daniele Smalls Reason for Referral: Evaluation/Treatment Cognitive Evaluation Medical History Pertinent Medical History: DM, HTN, PVD Renal Failure Current History Per patient, he "just got down" after several weeks of not feeling well. The patient stated regardless of the dialysis he was receiving, he "just wasn't feeling himself." The patient stated he experienced a seizure and "woke up in [place]." Reviewed History: Yes Social History Current Living Status: Children Speech PLF-Current Status Prior Level of Function The patient denied prior challenges with speech, language, or cognition. Subjective The patient was seated upright in recliner upon entrance. The patient greeted the clinician appropriately and was agreeable to participation in the cognitive assessment. The patient stated "I just feel like I'm in a fog, like it's just not clicking. " Language Eval: Auditory Comprehends Simple Yes/No Ques: Functional Follows 1-Step Commands: Functional Follows General Conversations: Functional (The patient provided lengthy responses to each question poised by the clinician. The patient was intermittently tangential and required redirection to the current topic being discussed.) Language Eval: Verbal Language Completes Spontaneous Greeting: Functional Produces Auto, Serial Info: Functional Imitates Simple Words/Phrases: Functional Word Finding: Mild (Word finding delays were present through informal conversation and exchanges.) Requests Basic Needs: Functional States Basic Personal Info: Functional Expresses Complex Ideas: Functional Cognitive Patient Orientation The patient was independently oriented to month, day of week, date, and year. Objective Cognitive Domain Attention: Mild Memory: Mild (The patient was able to recall two of three items with category cues provided.) Problem Solving: Mild Objective Oral Motor/Speech Production The patient demonstrates imprecise articulation, however, this appears secondary to poor, missing dentition. Impression At this time, the patient demonstrates a mild cognitive impairment, most notably in the areas of attention, memory, and problem solving. Additional cognitive evaluation will need to occur prior to placing specific goals as the patient was verbose throughout the session, requiring limited completion of evaluation tasks. Communication/Social Cognition Comprehension: 4 Expression: 4 Social Interaction: 5 Problem Solvin Memory: 4 Speech Patient Assess Expression of Ideas/Wants: Exhibits (3) Understanding [place] Content: Usually Understands (3) Brief Interview-Mental Status: Yes Repetition of Three Words: Three (3) Temporal Orientation: Year: Correct (3) Temporal Orientation: Month: Accurate within 5 days(2) Temporal Orientation: Day: Correct (1) Recall : Wear to say "Sock": Yes,after cueing (1) Recall : Color: Yes, no cue required (2) Recall : Bed: Yes, no cue required (2) Speech Short Term Goals Short Term Goals Short Term Goals 1. To be determined following additional and complete cognitive assessment. Time Frame-STG: One Day Speech [place] Recorder Goals Half-Way Goals 1. The patient will demonstrate improved cognitive linguistic skills for increased safety and function with ADL's in the least restrictive setting. Time Frame: Two Weeks Comprehension: 5 Expression: 5 Social Interaction: 5 Problem Solvin Memory: 4 Speech-Plan Treatment Plan Speech Therapy Treatment Plan: Continue Plan of Care Continue skilled speech pathology to target functional problem solving, improved attention, and memory strategies. Treatment Duration: Apr 20, 2017 Frequency: Modified Program (IRF) Estimated Hrs Per Day: .5 hour per day Rehab Potential: Fair Safety Risks/Education Teaching Recipient: Patient Teaching Methods: Discussion Response to Teaching: Verbalize Understanding Education Topics Provided: Results, Recommendations, Plan of Care Time Speech Therapy Time In: 09:35 Speech Therapy Time Out: 09:55 Total Billed Time: 20 Billed Treatment Time 1, LONNY WELSHCHAPINCITO ST Apr 06, 2017 14:33
--- NOTE | 2017-04-06 15:31 | Occupational Therapy Eval ---
OT Evaluation-General/PLF Medical Diagnosis Admission Date Apr 06, 2017 at 01:33 Medical Diagnosis: Debility, Renal Failure Onset Date: Mar 28, 2017 Therapy Diagnosis Therapy Diagnosis: Weakness Height/Weight Height (Feet): 5 Height (Inches): 8.00 Weight (Pounds): 160 Weight (Ounces): 0.0 Precautions Precautions/Isolations: Seizure, Fall Prevention, Standard Precautions Safety Interventions: None Weight Bear Status Weight Bearing Restriction: Weight Bearing/Tolerated Referral Physician: Slim Referral Reason: Activity Tolerance, Self Care, Evaluation/Treatment, Strengthening/ROM Medical History Pertinent Medical History: DM, HTN, PVD Additional Medical History DM, Chronic Kidney disease, Charcot foot left side Current History Pt. went to ER with nausea, facial droop, difficulty swallowing- seizures, metabolic acidosis Reviewed History: Yes Social History Home: Single Level Current Living Status: Children Entry Into Home: Stairs With Railing Steps Into Home: 4 ADL-Prior Level of Function ADL PLOF Comments Pt. was independent. Walked without walker. States that he was "not in the best health." He lives with his son. Son works nights. His daughter in law will be home with him though. DME/Equipment: Tub/Shower DME/Equipment Comments Pt. does not have equipment. Occupation: Pt. on disability OT Current Status Subjective No pain reported. Appearance Pt. is in chair. Agrees to work with OT. Mental Status/Objective Patient Orientation: Person, Place, Time, Situation Current Hand Dominance: Right Upper Extremity ROM Pt. is able to flex and move bilateral UE in all planes within full ROM, however , demonstrates slower movement after 90 degrees in shoulder flexion. Upper Extremity Sensation Pt. reports that he was feeling "tingling" in right hand, but that it has went away. Upper Extremity Strength Pt. demonstrates 3/5 bilateral UE strength. ADL-Treatment Functional [place] Measure 0=Not Assessed/NA 4=Minimal Assistance 1=Total Assistance 5=Supervision or Setup 2=Maximal Assistance 6=Modified [place] 3=Moderate Assistance 7=Complete IndependenceIRFPAI Quality Coding Scale 6 Independent with activity with or without an assistive device 5 Patient requires set up or clean up by helper. Patient completes activity by themselves 4 Supervision or touching assist (CGA). [place] provide cues , steadying assist 3 The helper provides less than half the effort to complete the activity 2 The helper provides more than half the effort to complete the activity 1 Dependent. The helper does all the effort to complete an activity 7 Patient refused to complete or attempt activity 9 The patient did not perform the activity before the current illness or injury 88 Not attempted due to Medical conditions or safety concerns Eating (FIM): 7 Eating (QC): 6 Bathing (FIM): 5 (SBA) Shower/Bathe Self (QC): 4 Upper Body Dressing (FIM): 5 Upper Body Dressing (QC): 4 Lower Body Dressing (FIM): 5 (SBA) Lower Body Dressing (QC): 4 On/Off Footwear (QC): 4 Toileting (FIM): 5 Toileting Hygiene (QC): 4 Transfers (B, C, W/C) (FIM): 4 (CGA with walker in ambulation for stability.) Toilet/Commode Transfer (FIM): 5 Toilet Transfer (QC): 4 Shower Transfer (FIM): 5 Other Treatments Pt. seen for eval and treatment in two sessions today. Pt. agreed to shower, and then agreed to ambulate to therapy gym in p.m. for UE strengthening task. Pt. required CGA for ambulation and SBA for all ADL tasks. Pt. ambulated to therapy gym with SBA and completed 15 minutes on armbike at mod resistance and slow movement to increase overall UE strength. Tolerated this well. Ambulated back to room during p.m. treatment. Education OT Patient Education: Correct positioning, Exercise program, Modified ADL techniques, Progress toward Goal/Update tx plan, Purpose of tx/functional activities, Reviewed precautions, Rehab process, Transfer techniques Teaching Recipient: Patient Teaching Methods: Demonstration, Discussion Response to Teaching: Verbalize Understanding, Return Demonstration OT Short Term Goals Short Term Goals Transfers (B,C,W/C) (FIM): 5 1=Demonstrate adherence to instructed precautions during ADL tasks. 2=Patient will verbalize/demonstrate understanding of assistive devices/ modifications for ADL. 3=Patient will improve strength/tolerance for activity to enable patient to perform ADL's. 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 Goals [facility] Goals Time Frame: Apr 13, 2017 Eating (FIM): 7 Eating (QC): 6 Groomin Oral Hygiene (QC): 6 Bathing(FIM): 6 Shower/Bathe Self (QC): 6 Upper Body Dressing(FIM): 6 Upper Body Dressing (QC): 6 Lower Body Dressing(FIM): 6 Lower Body Dressing (QC): 6 On/Off Footwear (QC): 6 Toileting(FIM): 6 Toileting Hygiene (QC): 6 Transfers (B,C,W/C) (FIM): 6 Toilet/Commode Transfer(FIM): 6 Toilet/Commode Transfer (QC): 6 Tub Transfer(FIM): 6 Shower Transfer(FIM): 6 Comprehension(FIM): 5 Expression (FIM): 5 Social Interaction(FIM): 5 Problem Solving(FIM): 4 Memory(FIM): 4 Additional Goals: 1-Demonstrate ADL Tasks, 2-Verbalize Understanding, 3- ImproveStrength/Lynne 1=Demonstrate adherence to instructed precautions during ADL tasks. 2=Patient will verbalize/demonstrate understanding of assistive devices/ modifications for ADL. 3=Patient will improve strength/tolerance for activity to enable patient to perform ADL's. OT Education/Plan Problem List/Assessment Assessment: Decreased Activ Tolerance, Impaired I ADL's, Impaired Self-Care Skills Discharge Recommendations Plan/Recommendations: Continue POC Therapy D/C Recommendations: Home w/ Family Support Equpiment Recommendations-D/C: Extended Bath Bench Barriers to Progress fatigue Treatment Plan/Plan of Care Treatment,Training & Education: Yes Patient would benefit from OT for education, treatment and training to promote independence in ADL's, mobility, safety and/or upper extremity function for ADL' s. Plan of Care: ADL Retraining, Functional Mobility, UE Funct Exercise/Act Treatment Duration: Apr 13, 2017 Frequency: At least 5 of 7 days/Wk (IRF) Estimated Hrs Per Day: 1.5 hours per day Agreement: Yes Rehab Potential: Good Time/GCodes Start Time: 11:00 Stop Time: 14:05 Total Time Billed (hr/min): 95 Billed Treatment Time [id number] 1, EVM x 10minutes, ADL x 60minutes [id number] 1, Ex x 25minutes DREW OLVERA OT Apr 06, 2017 15:31
[2017-04-06] MEDS: inSUlin ASPART (NovoLOG) 1 UNIT/0.01 ML (CHARGE PER UNIT) SC SCH ×2 (17:13→20:06)
[2017-04-06 18:04] VITALS: BP 128/79
[2017-04-06] MEDS: inSUlin DETERMIR 1 UNIT/0.01 ML (LEVEMIR) CHARGE PER UNIT SQ SCH (20:06)
[2017-04-07 05:21] VITALS: BP 137/76
[2017-04-07] MEDS: FERROUS SULF 325 MG (IRON) TAB PO SCH (06:03)
[2017-04-07] MEDS: inSUlin ASPART (NovoLOG) 1 UNIT/0.01 ML (CHARGE PER UNIT) SC SCH ×4 (06:03→20:24)
--- NOTE | 2017-04-07 07:28 | Occupational Ther Daily Note ---
OT Current Status-Daily Note Subjective Pt sleeping in bed. Woke to name. Pt c/o slight dizziness throughout OT session. No c/o pain. Mental Status/Objective Patient Orientation: Person, Place, Time, Situation Functional [place] Measure 0=Not Assessed/NA 4=Minimal Assistance 1=Total Assistance 5=Supervision or Setup 2=Maximal Assistance 6=Modified [place] 3=Moderate Assistance 7=Complete [place] PICC ADL-Treatment Pt declined shower today. Pt did complete sponge bath. After set up, pt was able to complete all bathing, rinsing and drying with supervision. After set up , pt was able to complete all dressing with supervision. Pt tended to stand to doff/don items over feet, no LOB noted. YBARRA recommended that pt sit to don/ doff clothing over feet for safety. Pt did ambulate to retrieve grooming items and socks from closet. Pt ambulated to bathroom to complete grooming by self with supervision. Pt able to order food and set self up then use regular utensils to cut food and feed self. Functional [place] Measure 0=Not Assessed/NA 4=Minimal Assistance 1=Total Assistance 5=Supervision or Setup 2=Maximal Assistance 6=Modified [place] 3=Moderate Assistance 7=Complete IndependenceIRFPAI Quality Coding Scale 6 Independent with activity with or without an assistive device 5 Patient requires set up or clean up by helper. Patient completes activity by themselves 4 Supervision or touching assist (CGA). [place] provide cues , steadying assist 3 The helper provides less than half the effort to complete the activity 2 The helper provides more than half the effort to complete the activity 1 Dependent. The helper does all the effort to complete an activity 7 Patient refused to complete or attempt activity 9 The patient did not perform the activity before the current illness or injury 88 Not attempted due to Medical conditions or safety concerns Eating (FIM): 7 Eating (QC): 6 Grooming (FIM): 5 Oral Hygiene (QC): 5 Bathing (FIM): 5 Bathing Location: L Arm, R Arm, L Upper Leg, R Upper Leg, L Lower Leg ( including foot), R Lower Leg (including foot), Chest, Abdomen, Buttocks, Perineal Area Shower/Bathe Self (QC): 4 Upper Body (FIM): 5 Upper Body Dressing (QC): 5 Lower Body Dressing (FIM): 5 Lower Body Dressing (QC): 5 On/Off Footwear (QC): 5 Other Treatment Pt ambulated to therapy gym with supervision using FWW. Pt completed arm bike 15 min at 15 [place] resistance to increase strength and activity tolerance for daily functional tasks. Pt kept eyes closed during task due to feeling dizzy. Completed slow rotations consistently. Pt then completed resistive pegs 50 with each hand. Pt then ambulated back to room and ordered breakfast. After therapy , pt sitting in recliner with call light/phone in reach. All needs met in room. OT Short Term Goals Short Term Goals Transfers (B,C,W/C) (FIM): 5 1=Demonstrate adherence to instructed precautions during ADL tasks. 2=Patient will verbalize/demonstrate understanding of assistive devices/ modifications for ADL. 3=Patient will improve strength/tolerance for activity to enable patient to perform ADL's. 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 Goals [facility] Goals Time Frame: Apr 13, 2017 Eating (FIM): 7 Eating (QC): 6 Groomin Oral Hygiene (QC): 6 Bathing(FIM): 6 Shower/Bathe Self (QC): 6 Upper Body Dressing(FIM): 6 Upper Body Dressing (QC): 6 Lower Body Dressing(FIM): 6 Lower Body Dressing (QC): 6 On/Off Footwear (QC): 6 Toileting(FIM): 6 Toileting Hygiene (QC): 6 Transfers (B,C,W/C) (FIM): 6 Toilet/Commode Transfer(FIM): 6 Toilet/Commode Transfer (QC): 6 Tub Transfer(FIM): 6 Shower Transfer(FIM): 6 Comprehension(FIM): 5 Expression (FIM): 5 Social Interaction(FIM): 5 Problem Solving(FIM): 4 Memory(FIM): 4 Additional Goals: 1-Demonstrate ADL Tasks, 2-Verbalize Understanding, 3- ImproveStrength/Lynne 1=Demonstrate adherence to instructed precautions during ADL tasks. 2=Patient will verbalize/demonstrate understanding of assistive devices/ modifications for ADL. 3=Patient will improve strength/tolerance for activity to enable patient to perform ADL's. OT Education/Plan Discharge Recommendations Plan/Recommendations: Continue POC Treatment Plan/Plan of Care Patient would benefit from OT for education, treatment and training to promote independence in ADL's, mobility, safety and/or upper extremity function for ADL' s. Plan of Care: ADL Retraining, Functional Mobility, UE Funct Exercise/Act Treatment Duration: Apr 13, 2017 Frequency: At least 5 of 7 days/Wk (IRF) Estimated Hrs Per Day: 1.5 hours per day Agreement: Yes Rehab Potential: Good Time/GCodes Start Time: 07:00 Stop Time: 08:30 Total Time Billed (hr/min): 90 Billed Treatment Time 1 visit-ADL 2 (35 min) EX 3 (40 min) FA 1 (15 min) ADELA CARMONA Apr 07, 2017 07:28
--- NOTE | 2017-04-07 07:59 | PM & R (SOAP) Progress Note ---
Subjective Time Seen by Provider: 07:35 Subjective/Events-last exam Patient was seen in his room Patient CGA for transfers.Progressing well with therapies Review of Systems Neurological: Weakness Objective Exam Last Set of Vital Signs Vital Signs Date Time Temp Pulse Resp B/P (MAP) Pulse Ox O2 Delivery O2 Flow Rate FiO2 04/07/17 05:21 98.4 65 16 137/76 (96) 99 Room Air Capillary Refill : I&O Intake and Output 04/07/17 00:00 Intake Total 550 ml Balance 550 ml Intake Oral 550 ml # Voids 2 Daily Weight Change Unsure General: Alert, Oriented X3, Cooperative, No Acute Distress HEENT: Atraumatic, PERRLA, EOMI, Mucous Memb Moist/[employer] Neck: Supple, No JVD Lungs: Clear to Auscultation Heart: Regular Rate Abdomen: Normal Bowel Sounds, Soft, No Tenderness Extremities: Other (trace edema) Neuro: Other (Mild gait imbalance and weakness and mild cognitive impairment) Results Lab Laboratory Tests 04/06/17 05:39: Glucometer 198H 04/06/17 07:10: White Blood Count 7.6, Red Blood Count 3.80L, Hemoglobin 10.6L, Hematocrit 29L, Mean Corpuscular Volume 76L, Mean Corpuscular Hemoglobin 28, Mean Corpuscular Hemoglobin Concent 37H, Red Cell Distribution Width 15.0H, Platelet Count 291, Mean Platelet Volume 9.7, Sodium Level 135, Potassium Level 4.1, Chloride Level 100, Carbon Dioxide Level 24, Anion Gap 11, Blood Urea Nitrogen 15, Creatinine 4.86#H, Estimat Glomerular Filtration Rate 15, BUN/Creatinine Ratio 3, Glucose Level 167H, Calcium Level 8.2L, Total Bilirubin 0.3, Aspartate Amino Transf (AST /SGOT) 19, Alanine Aminotransferase (ALT/SGPT) 11, Alkaline Phosphatase 105, Total Protein 6.7, Albumin 3.2 04/06/17 11:14: Glucometer 305H 04/06/17 15:59: Glucometer 180H 04/06/17 20:02: Glucometer 118H 04/07/17 05:15: Glucometer 105 Assessment/Plan Assessment Metabolic encephalopathy secondary to DKA and seizures treated at [facility] Seiazures controlled Anemia of chronic D ESRD on Dialysis TIW Collin Keller DM controlled Plan Continue PT/OT/ST Team Conference later today- See report for full functional update and POC and ELOS Appreciate [facility] Physicians note LOI FLEMING MD Apr 07, 2017 07:59
[2017-04-07] MEDS: meTOprolol SUCCINATE 100 MG (TOPROL XL) TAB PO SCH (09:14)
[2017-04-07] MEDS: amLODIPine 5 MG (NORVASC) TAB PO SCH (09:14)
[2017-04-07] MEDS: ASCORBIC ACID (VIT C) 500 MG TABLET PO SCH (09:14)
--- NOTE | 2017-04-07 10:59 | Physical Therapy Daily Note ---
PT Daily Note-Current Subjective Pt. agrees to Rx. State he is really just fatigued, no discomfort. Pain Numeric Pain Scale: 0-No Pain Mental Status Patient Orientation: Normal For Age Transfers Functional [place] Measure 0=Not Assessed/NA 4=Minimal Assistance 1=Total Assistance 5=Supervision or Setup 2=Maximal Assistance 6=Modified [place] 3=Moderate Assistance 7=Complete IndependenceIRFPAI Quality Coding Scale 6 Independent with activity with or without an assistive device 5 Patient requires set up or clean up by helper. Patient completes activity by themselves 4 Supervision or touching assist (CGA). Gomer provide cues , steadying assist 3 The helper provides less than half the effort to complete the activity 2 The helper provides more than half the effort to complete the activity 1 Dependent. The helper does all the effort to complete an activity 7 Patient refused to complete or attempt activity 9 The patient did not perform the activity before the current illness or injury 88 Not attempted due to Medical conditions or safety concerns Transfers (B, C, W/C) (FIM): 5 Scootin Rollin Supine to/from Sit: 6 Sit to/from Stand: 5 Bed to/from Chair: 5 Gait Training Does the Patient Walk?: Yes Gait (FIM): 5 Distance (FIM): 3=150 ft (x3) Gait Level of Assist: 5 Gait Persons Needed: 1 Gait Assistive Device: FWW Stair Training Stair Training: Handrails/: 1 handrail Stairs (FIM): 5 #of Steps: 8 Stairs: Pattern: Reciprocal Level of Assist: 5 Exercises Supine Ex: Bridging, Rolling, Heel Slides, Scooting, Straight leg raise, Hip abd/add Supine Reps: 15 Standing: Hip Abduction, Hamstring curls, Heel/toe raises, Marching, Mini squats Standing Reps: 15 NuStep Minutes: 11 NuStep Workload: 5 Assessment Current Status: Good Progress pt. states he had dealt with LOB but is pleased that the FWW helps a lot PT Short Term Goals Short Term Goals Time Frame: Apr 13, 2017 Transfers (B,C,W/C) (FIM): 5 Gait (FIM): 5 Gait Distance Comment: 300' Gait Level of Assist: 5 Gait Assistive Device: FWW PT Prison Goals Paper Testing Supervisor Goals PT Prison Goals Time Frame: Apr 27, 2017 Transfers (B,C,W/C) (FIM): 6 Sit to Lying (QC): 6 Lying-Sitting on Side/Bed(QC): 6 Sit to Stand (QC): 6 Rollin Roll Left to Right (QC): 6 Chair/Qid-xb-Xhzya Xfer(QC): 6 Car Transfer (QC): 4 Gait (FIM): 6 Distance: 400' Walk 10 feet (QC): 6 Walk 10ft-Uneven Surface(QC): 6 Walk 50ft with 2 Turns (QC): 6 Walk 150 ft (QC): 6 Gait Level of Assist: 6 Gait Assistive Device: FWW Stairs (FIM): 5 # of Steps: 12 1 Step (curb) (QC): 4 4 Steps (QC): 4 12 Steps (QC): 4 Stairs Level Of Assist: 5 Picking up an Object (QC): 4 PT Plan Treatment/Plan Treatment Plan: Continue Plan of Care Treatment Plan: Bed Mobility, Education, Functional Activity Lynne, Functional Strength, Group Therapy, Gait, Safety, Therapeutic Exercise, Transfers Treatment Duration: Apr 27, 2017 Frequency: At least 5 of 7 days/Wk (IRF) Estimated Hrs Per Day: 1.5 hours per day Patient and/or Family Agrees t: Yes Safety Risks/Education Patient Education: Gait Training, Transfer Techniques, Steps, Correct Positioning, Disease Process, Safety Issues Teaching Recipient: Patient Teaching Methods: Demonstration, Discussion Response to Teaching: Verbalize Understanding, Return Demonstration, Reinforcement Needed Time/GCodes Time In: 1000 Time Out: 1100 Total Billed Treatment Time: 60 Total Billed Treatment 1,EX40,GT20 G Codes Necessary: AL Duran PACKER INSPECTOR Apr 07, 2017 10:58
--- NOTE | 2017-04-07 13:50 | Speech Therapy Daily Note ---
Speech Daily Progress Note Subjective Date Seen by Provider: Apr 07, 2017 Time Seen by Provider: 09:30 The patient was seated in recliner upon entrance. The patient greeted the clinician and was agreeable to participation in the cognitive treatment session. Objective A standardized cognitive evaluation was completed on this date ([employer]- Version Two) with the following results: - Visuospatial/Executive Functioning: The patient was able to complete trail- making and clock drawing with 100% accuracy. The patient demonstrated difficulty with cube copying, completing a portion of the drawing accurately, however, did not complete the bottom portion of the design. - Memory: The patient was able to recall five of five single words immediately. The patient was unable to recall any of five words following a five minute interval. The patient was able to recall three of five words with category cues following a five minute interval. - Attention: The patient was unable to identify a specific letter in a string of letter or complete serial seven subtraction. - Language: The patient was able to state similarities between two items, repeat short phrases, and word-finding tasks. - Orientation: The patient was oriented to location, month, day of week, date, and year. The patient demonstrated a result of +19/30 correlating to a mild cognitive impairment in the areas of memory, attention, and executive functioning. Assessment Assessment Current Status: Good Progress Treatment Plan Continue Plan of Care Communication Comprehension: 4 Expression: 4 Social Cognition Social Interaction: 5 Problem Solvin Memory: 4 Speech Short Term Goals Short Term Goals Short Term Goals 1. The patient will demonstrate safety problem solving with 90% accuracy, independently. 2. The patient will recall two memory strategies for use at home, independently. 3. The patient will demonstrate sustained attention for a period of 4 minutes with mild clinician cueing. Time Frame-STG: One Week Speech Cylinder Grinder Goals Cylinder Grinder Goals 1. The patient will demonstrate improved cognitive linguistic skills for increased safety and function with ADL's in the least restrictive setting. Time Frame: Two Weeks Comprehension: 5 Expression: 5 Social Interaction: 5 Problem Solvin Memory: 4 Speech-Plan Treatment Plan Speech Therapy Treatment Plan: Continue Plan of Care Continue skilled speech pathology to target functional problem solving and improved expressive communication. Treatment Duration: Apr 20, 2017 Frequency: Modified Program (IRF) Estimated Hrs Per Day: .5 hour per day Rehab Potential: Good Safety Risks/Education Teaching Recipient: Patient Teaching Methods: Discussion Response to Teaching: Verbalize Understanding Education Topics Provided: Plan of Care, Results, Goals Time Speech Therapy Time In: 09:30 Speech Therapy Time Out: 10:00 Total Billed Time: 30 Billed Treatment Time 1, CHAPINCITO SALAZAR Apr 07, 2017 13:50
[2017-04-07 18:04] VITALS: BP 148/82
[2017-04-07] MEDS: LEVETIRACETAM 500 MG (KEPPRA) TAB PO SCH (18:09)
[2017-04-07] MEDS: inSUlin DETERMIR 1 UNIT/0.01 ML (LEVEMIR) CHARGE PER UNIT SQ SCH (20:23)
[2017-04-08] MEDS: inSUlin ASPART (NovoLOG) 1 UNIT/0.01 ML (CHARGE PER UNIT) SC SCH ×4 (05:14→21:26)
[2017-04-08 05:16] VITALS: BP 153/79
[2017-04-08] MEDS: FERROUS SULF 325 MG (IRON) TAB PO SCH (05:16)
--- NOTE | 2017-04-08 08:52 | PM & R (SOAP) Progress Note ---
Subjective Time Seen by Provider: 08:15 Subjective/Events-last exam Patient was seen in his room this AM Patient SBA for transfers Objective Exam Last Set of Vital Signs Vital Signs Date Time Temp Pulse Resp B/P (MAP) Pulse Ox O2 Delivery O2 Flow Rate FiO2 04/08/17 05:16 98.6 76 18 153/79 (103) 100 Room Air Capillary Refill : I&O Intake and Output 04/08/17 00:00 Intake Total 700 ml Balance 700 ml Intake Oral 700 ml # Voids 3 General: Alert, Oriented X3, Cooperative, No Acute Distress HEENT: Atraumatic, PERRLA, EOMI, Mucous Memb Moist/[place] Neck: Supple, No JVD Lungs: Clear to Auscultation Heart: Regular Rate Abdomen: Normal Bowel Sounds, Soft, No Tenderness Extremities: Other (trace edema) Neuro: Other (Mild gait imbalance and weakness and mild cognitive impairment) Results Lab Laboratory Tests 04/06/17 05:39: Glucometer 198H 04/06/17 07:10: White Blood Count 7.6, Red Blood Count 3.80L, Hemoglobin 10.6L, Hematocrit 29L, Mean Corpuscular Volume 76L, Mean Corpuscular Hemoglobin 28, Mean Corpuscular Hemoglobin Concent 37H, Red Cell Distribution Width 15.0H, Platelet Count 291, Mean Platelet Volume 9.7, Sodium Level 135, Potassium Level 4.1, Chloride Level 100, Carbon Dioxide Level 24, Anion Gap 11, Blood Urea Nitrogen 15, Creatinine 4.86#H, Estimat Glomerular Filtration Rate 15, BUN/Creatinine Ratio 3, Glucose Level 167H, Calcium Level 8.2L, Total Bilirubin 0.3, Aspartate Amino Transf (AST /SGOT) 19, Alanine Aminotransferase (ALT/SGPT) 11, Alkaline Phosphatase 105, Total Protein 6.7, Albumin 3.2 04/06/17 11:14: Glucometer 305H 04/06/17 15:59: Glucometer 180H 04/06/17 20:02: Glucometer 118H 04/07/17 05:15: Glucometer 105 04/07/17 10:52: Glucometer 203H 04/07/17 18:03: Glucometer 210H 04/07/17 20:12: Glucometer 245H 04/08/17 05:13: Glucometer 83 Assessment/Plan Assessment Metabolic encephalopathy secondary to DKA and seizures treated at [facility] Seiazures controlled Anemia of chronic D ESRD on Dialysis TIW M.W,F DM controlled Plan Continue PT/OT/ST Team Conference held yesterday- See report for full functional update [facility] clinic Physicians note Discharge set tentatively for Wednesday04-12-17 LOI FLEMING MD Apr 08, 2017 08:52
--- NOTE | 2017-04-08 08:58 | Individualized Plan of Care ---
Individualized Plan of Care Rehab Nursing IPOC Order Admission Date Apr 06, 2017 at 01:33 Current Orders Orders Heart Healthy (04/06/17 Breakfast) Amlodipine Tablet (Norvasc Tablet) (04/06/17 09:00) Ascorbic Acid Tablet (Vitamin C Tablet) (04/06/17 09:00) Ferrous Sulfate Tablet (Feosol Tablet) (04/06/17 07:00) Insulin Determir (Per Unit) (Levemir (Pe (04/06/17 21:00) Levetiracetam Tablet (Keppra Tablet) (04/06/17 12:00) Metoprolol Succinate (Xl) Tab (Toprol Xl (04/06/17 09:00) Nursing Communication (Patient (04/06/17 02:21) Admission-Acute Rehab Unit (04/06/17 02:21) Vital Signs: Routine 08,16,00 (04/06/17 02:21) Sequential Compression Device 08,20 (04/06/17 02:21) Furniture Duster-Inpt Rehab (04/06/17 02:21) Rehab Nursing Orders-Ipoc (04/06/17 02:21) Physical Therapy Rehab Orders (04/06/17 02:21) Occupational Therapy Rehab Ord (04/06/17 02:21) Speech Therapy Rehab Orders (04/06/17 02:21) Turn And Reposition Q2HR (04/06/17 02:21) Intake & Output 06,14,22 (04/06/17 02:21) Precautions (Aru) (04/06/17 02:21) Seizure Precautions (04/06/17 02:21) Weekly Weight (Lbs) WEEK (04/06/17 02:21) Cbc No Diff (04/06/17 05:00) Comprehensive Metabolic Panel (04/06/17 05:00) Admission-Acute Rehab Unit (04/06/17 09:01) Vital Signs: Routine 08,16,00 (04/06/17 09:01) Rehab Nursing Orders-Ipoc (04/06/17 09:01) Turn And Reposition Q2HR (04/06/17 09:01) Intake & Output 06,14,22 (04/06/17 09:01) Weekly Weight (Lbs) WEEK (04/06/17 09:01) Rehab-Intensity Of Therapy (04/06/17 09:01) Consult Physician (04/06/17 09:06) Dietary Consult (04/06/17 09:35) Insulin (Regular) Human (Humulin R (Per (04/06/17 16:00) Insulin (Regular) Human (Humulin R (Per (04/06/17 12:00) Nursing Communication (Patient DAILY (04/07/17 09:00) Levetiracetam Tablet (Keppra Tablet) (04/07/17 12:00) Follow Hypoglycemia Protocol (04/06/17 14:30) Insulin Aspart (Novolog) (Novolog (Charg (04/06/17 16:00) Patient Visit (04/06/17 ) Pt Eval Moderate Complexity (04/06/17 ) Gait Training, Ea 15 Min (04/06/17 ) Functional Activities, Ea 15 (04/06/17 ) Exercise Therap, Ea 15 Min (04/06/17 ) Patient Visit (04/06/17 ) Speech Sound Lang Comp (04/06/17 ) Fluid Restriction (04/06/17 16:52) Patient Visit (04/07/17 ) Exercise Therap, Ea 15 Min (04/07/17 ) Gait Training, Ea 15 Min (04/07/17 ) Cho 60g/M 1snack (16-2000 Wade) (04/07/17 Dinner) Patient Visit (04/07/17 ) Treat. Speech/Lang/Voice (04/07/17 ) Rehab Nursing Orders: Diseage Management, Nutrition Management, Pain Management Other Nursing Orders: Monitor urinary output and for constipation and tolerance for dialysis Intensity of Therapy to be met Patient to be seen: 15 hrs over 7 cons. days PT IPOC Problem List: Activity Tolerance, Functional Strength, Safety, Balance, Gait, Transfer, Bed Mobility, ROM Treatment Plan: Continue Plan of Care Bed Mobility, Education, Functional Activity Lynne, Functional Strength, Group Therapy, Gait, Safety, Therapeutic Exercise, Transfers Treatment Duration: Apr 27, 2017 Frequency: At least 5 of 7 days/Wk (IRF) Estimated Hrs Per Day: 1.5 hours per day OT IPOC Problems: Decreased Activ Tolerance, Impaired I ADL's, Impaired Self-Care Skills OT Treatment, Training and Edu: Yes Plan of Care: ADL Retraining, Functional Mobility, UE Funct Exercise/Act Treatment Duration: Apr 13, 2017 Frequency: At least 5 of 7 days/Wk (IRF) Estimated Hrs Per Day: 1.[address] IPOC Speech Therapy Treatment Plan: Continue Plan of Care Treatment Duration: Apr 20, 2017 Frequency: Modified Program (IRF) Estimated Hrs Per Day: .5 hour per day Furniture Duster/Case Mgmt Furniture Duster/Case Managemen: Discharge Planning, Patient/Family Counseling Physician IPOC Medical Issues being managed closely and that require the 24 hour availability of a physician:DM Seizures ESRD Medical Issues: Bowel/Bladder Function, DVT Prophylaxis, Falls Precautions, Fluid/Electrolyte/Nutrition Balance, Infection Protection, Pain Management, Other (List) (as per above) Brief Synthesis of Preadmission Screen, Post-Admission Evaluation, and Therapy Evaluations: 51 yo disabled male who lives with his family and has been on dialysis since December who was admitted to [facility] for treatment of DKA and Seizures with resulting encephalopathy Had bee Independent prior to this Referred to IRU for ongoing care and therapies prior to discharge to home in [place] [facility] Prognosis: Good Anticipated Length of Stay: 04-12-17 Rehab Goals Mod Independent for adls and mobility skills Anticipated discharge destinat: Home with family LIO FLEMING MD Apr 08, 2017 08:58
[2017-04-08] MEDS: amLODIPine 5 MG (NORVASC) TAB PO SCH (09:49)
[2017-04-08] MEDS: ASCORBIC ACID (VIT C) 500 MG TABLET PO SCH (09:49)
[2017-04-08] MEDS: meTOprolol SUCCINATE 100 MG (TOPROL XL) TAB PO SCH (09:49)
[2017-04-08] MEDS: LEVETIRACETAM 500 MG (KEPPRA) TAB PO SCH (11:34)
--- NOTE | 2017-04-08 11:38 | Physical Therapy Daily Note ---
PT Daily Note-Current Subjective Pt sitting in recliner upon arrival. Pt agrees to PT. Pain Location: No Pain Reported Mental Status Patient Orientation: Person, Place, Situation Transfers Functional [place] Measure 0=Not Assessed/NA 4=Minimal Assistance 1=Total Assistance 5=Supervision or Setup 2=Maximal Assistance 6=Modified [place] 3=Moderate Assistance 7=Complete IndependenceIRFPAI Quality Coding Scale 6 Independent with activity with or without an assistive device 5 Patient requires set up or clean up by helper. Patient completes activity by themselves 4 Supervision or touching assist (CGA). [place] provide cues , steadying assist 3 The helper provides less than half the effort to complete the activity 2 The helper provides more than half the effort to complete the activity 1 Dependent. The helper does all the effort to complete an activity 7 Patient refused to complete or attempt activity 9 The patient did not perform the activity before the current illness or injury 88 Not attempted due to Medical conditions or safety concerns Scootin Sit to/from Stand: 5 Sit to Stand (QC): 5 Weight Bearing Right Lower Extremity: Right Full Weight Bearing Left Lower Extremity: Left Full Weight Bearing Gait Training Does the Patient Walk?: Yes Distance (FIM): 3=150 ft Distance: 200', 150' Walk 10 feet (QC): 5 Walk 50 ft with 2 Turns(QC): 5 Walk 150 ft (QC): 5 Gait Level of Assist: 5 Gait Persons Needed: 1 Gait Assistive Device: FWW Pt's balance is improving but has occasional episodes of wobbling but will self correct. Pt's olivia is slow and steady, no LOB. Wheelchair Training Does the Pt Use a Wheelchair?: No Exercises Standing: Hip Abduction, Hamstring curls, Heel/toe raises, 3 way Ex=Flex, Abd, Ext, Marching, Unilateral stance (5 reps), Weight shifts Standing Reps: 15 NuStep Minutes: 15 NuStep Workload: 5 Treatments Pt transfers from recliner to standing using FWW at SBA. Pt ambulates in hallway using FWW at SBA then transfers to NuStep. Pt uses NuStep for 15m at Workload 5. Pt then completes Standing Ex at //bars with one short rest break. Pt ambulates in hallway back to room to rest in recliner at end of tx with all needs met. Assessment Current Status: Good Progress Pt reports feeling a little "foggy" during tx but it doesn't limit participation. BROADCAST FIELD SUPERVISOR gives a few VC for sequencing especially during ambulation. PT Short Term Goals Short Term Goals Time Frame: Apr 13, 2017 Transfers (B,C,W/C) (FIM): 5 Gait (FIM): 5 Gait Distance Comment: 300' Gait Level of Assist: 5 Gait Assistive Device: FWW PT Supplier Quality Engineering Manager Goals Supplier Quality Engineering Manager Goals PT Mcfp Goals Time Frame: Apr 27, 2017 Transfers (B,C,W/C) (FIM): 6 Sit to Lying (QC): 6 Lying-Sitting on Side/Bed(QC): 6 Sit to Stand (QC): 6 Rollin Roll Left to Right (QC): 6 Chair/Izm-kl-Lsvqf Xfer(QC): 6 Car Transfer (QC): 4 Gait (FIM): 6 Distance: 400' Walk 10 feet (QC): 6 Walk 10ft-Uneven Surface(QC): 6 Walk 50ft with 2 Turns (QC): 6 Walk 150 ft (QC): 6 Gait Level of Assist: 6 Gait Assistive Device: FWW Stairs (FIM): 5 # of Steps: 12 1 Step (curb) (QC): 4 4 Steps (QC): 4 12 Steps (QC): 4 Stairs Level Of Assist: 5 Picking up an Object (QC): 4 PT Plan Problem List Problem List: Activity Tolerance, Safety, Balance, Gait Treatment/Plan Treatment Plan: Continue Plan of Care Treatment Plan: Bed Mobility, Education, Functional Activity Lynne, Functional Strength, Group Therapy, Gait, Safety, Therapeutic Exercise, Transfers Treatment Duration: Apr 27, 2017 Frequency: At least 5 of 7 days/Wk (IRF) Estimated Hrs Per Day: 1.5 hours per day Patient and/or Family Agrees t: Yes Safety Risks/Education Patient Education: Gait Training, Transfer Techniques, Correct Positioning, Safety Issues Teaching Recipient: Patient Teaching Methods: Discussion Response to Teaching: Verbalize Understanding Time/GCodes Time In: 1030 Time Out: 1130 Total Billed Treatment Time: 60 Total Billed Treatment 1, GT x2 (30m) & EX x2 (30m) YESENIA CLAYTON BROADCAST FIELD SUPERVISOR Apr 08, 2017 11:38
--- NOTE | 2017-04-08 11:58 | Occupational Ther Daily Note ---
OT Current Status-Daily Note Subjective No pain reported. Pt. states that he just feels like he is "rolling." Nursing had taken blood sugar this morning, which was low according to pt. BP 123/78, HR- 74, O2 sats 100%. Pt. agreeable to treatment. Appearance Pt. up in chair. Has already washed up and dressed. Agrees to work with OT. Mental Status/Objective Patient Orientation: Person, Place, Time, Situation Functional [place] Measure 0=Not Assessed/NA 4=Minimal Assistance 1=Total Assistance 5=Supervision or Setup 2=Maximal Assistance 6=Modified [place] 3=Moderate Assistance 7=Complete [place] ADL-Treatment Functional [place] Measure 0=Not Assessed/NA 4=Minimal Assistance 1=Total Assistance 5=Supervision or Setup 2=Maximal Assistance 6=Modified [place] 3=Moderate Assistance 7=Complete IndependenceIRFPAI Quality Coding Scale 6 Independent with activity with or without an assistive device 5 Patient requires set up or clean up by helper. Patient completes activity by themselves 4 Supervision or touching assist (CGA). Ruth provide cues , steadying assist 3 The helper provides less than half the effort to complete the activity 2 The helper provides more than half the effort to complete the activity 1 Dependent. The helper does all the effort to complete an activity 7 Patient refused to complete or attempt activity 9 The patient did not perform the activity before the current illness or injury 88 Not attempted due to Medical conditions or safety concerns Transfers (B, C, W/C) (FIM): 5 (Pt. demonstrates slow gait with walker. No loss of balance and requires SBA with all transfers.) Other Treatment Pt. ambulates to therapy gym. Tolerates 15 minutes on armbike at mod resistance for increased overall strengthening and endurance. After this task, pt. rested before completing UE strengthening with dumbbells. Tolerated 4 lb. dumbbell exercises x 5 exercises x 15 reps x 2 sets in all planes for increased strength and endurance. Pt. required brief rest break in between each set. After this task, ambulated to kitchen area and pt. was educated regarding home safety, getting items out of high and low kitchen cabinets safely, and how to manage his walker without falling in kitchen. Pt. was also educated regarding making tasks easier and keeping all items out for easy access. Pt. also shown tub transfer bench in bathroom. Pt. states that he would like one of these. Pt. verbalized understanding. Pt. ambulated back to room. All needs met in room. Education OT Patient Education: Exercise program, Progress toward Goal/Update tx plan, Purpose of tx/functional activities, Reviewed precautions, Rehab process, Transfer techniques Teaching Recipient: Patient Teaching Methods: Demonstration, Discussion Response to Teaching: Verbalize Understanding, Return Demonstration OT Short Term Goals Short Term Goals Transfers (B,C,W/C) (FIM): 5 1=Demonstrate adherence to instructed precautions during ADL tasks. 2=Patient will verbalize/demonstrate understanding of assistive devices/ modifications for ADL. 3=Patient will improve strength/tolerance for activity to enable patient to perform ADL's. OT Logistics Planner Goals Logistics Planner Goals Time Frame: Apr 13, 2017 Eating (FIM): 7 Eating (QC): 6 Groomin Oral Hygiene (QC): 6 Bathing(FIM): 6 Shower/Bathe Self (QC): 6 Upper Body Dressing(FIM): 6 Upper Body Dressing (QC): 6 Lower Body Dressing(FIM): 6 Lower Body Dressing (QC): 6 On/Off Footwear (QC): 6 Toileting(FIM): 6 Toileting Hygiene (QC): 6 Transfers (B,C,W/C) (FIM): 6 Toilet/Commode Transfer(FIM): 6 Toilet/Commode Transfer (QC): 6 Tub Transfer(FIM): 6 Shower Transfer(FIM): 6 Comprehension(FIM): 5 Expression (FIM): 5 Social Interaction(FIM): 5 Problem Solving(FIM): 4 Memory(FIM): 4 Additional Goals: 1-Demonstrate ADL Tasks, 2-Verbalize Understanding, 3- ImproveStrength/Lynne 1=Demonstrate adherence to instructed precautions during ADL tasks. 2=Patient will verbalize/demonstrate understanding of assistive devices/ modifications for ADL. 3=Patient will improve strength/tolerance for activity to enable patient to perform ADL's. OT Education/Plan Problem List/Assessment Assessment: Decreased Activ Tolerance, Impaired I ADL's, Impaired Self-Care Skills Discharge Recommendations Plan/Recommendations: Continue POC Therapy D/C Recommendations: Home w/ Family Support, Occupational Therapy Home Care Equpiment Recommendations-D/C: Extended Bath Bench Target Placement Home with son and daughter in law. Treatment Plan/Plan of Care Treatment,Training & Education: Yes Patient would benefit from OT for education, treatment and training to promote independence in ADL's, mobility, safety and/or upper extremity function for ADL' s. Plan of Care: ADL Retraining, Functional Mobility, UE Funct Exercise/Act Treatment Duration: Apr 13, 2017 Frequency: At least 5 of 7 days/Wk (IRF) Estimated Hrs Per Day: 1.5 hours per day Agreement: Yes Rehab Potential: Good Time/GCodes Start Time: 09:15 Stop Time: 10:30 Total Time Billed (hr/min): 75 Billed Treatment Time 1, EX x 60minutes, ADL x 15minutes DREW OLVERA OT Apr 08, 2017 11:58
--- NOTE | 2017-04-08 13:49 | Physical Therapy Daily Note ---
PT Daily Note-Current Subjective Pt sitting in recliner upon arrival. Pt agrees to PT. Pain Location: No Pain Reported Mental Status Patient Orientation: Person, Place, Situation Pt reports feeling "a little foggy" this afternoon. Transfers Functional [place] Measure 0=Not Assessed/NA 4=Minimal Assistance 1=Total Assistance 5=Supervision or Setup 2=Maximal Assistance 6=Modified [place] 3=Moderate Assistance 7=Complete IndependenceIRFPAI Quality Coding Scale 6 Independent with activity with or without an assistive device 5 Patient requires set up or clean up by helper. Patient completes activity by themselves 4 Supervision or touching assist (CGA). [place] provide cues , steadying assist 3 The helper provides less than half the effort to complete the activity 2 The helper provides more than half the effort to complete the activity 1 Dependent. The helper does all the effort to complete an activity 7 Patient refused to complete or attempt activity 9 The patient did not perform the activity before the current illness or injury 88 Not attempted due to Medical conditions or safety concerns Scootin Sit to/from Stand: 5 Sit to Stand (QC): 5 Weight Bearing Right Lower Extremity: Right Full Weight Bearing Left Lower Extremity: Left Full Weight Bearing Gait Training Does the Patient Walk?: Yes Distance (FIM): 3=150 ft Distance: 150' Walk 10 feet (QC): 5 Walk 50 ft with 2 Turns(QC): 5 Walk 150 ft (QC): 5 Gait Level of Assist: 5 Gait Persons Needed: 1 Gait Assistive Device: FWW Pt walks with slow olivia but steady, no LOB. Wheelchair Training Does the Pt Use a Wheelchair?: No Stair Training Stair Training: Handrails/: 1 handrail #of Steps: 8 1 Step (curb) (QC): 5 4 Steps (QC): 5 Stairs: Pattern: Step to Level of Assist: 5 Treatments Pt transfers from recliner to standing using FWW at [facility]. Pt ambulates to Therapy Gym and completes 2 sets of 4 stairs. Pt then returns to room to rest and see ST for tx. Pt has all needs met at end of tx, pt resting in recliner. Assessment Current Status: Good Progress Pt reports feeling as though he is leaning to the R side. 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 PT Short Term Goals Short Term Goals Time Frame: Apr 13, 2017 Transfers (B,C,W/C) (FIM): 5 Gait (FIM): 5 Gait Distance Comment: 300' Gait Level of Assist: 5 Gait Assistive Device: FWW PT Longterm Goals Longterm Goals PT Record Label Intern Goals Time Frame: Apr 27, 2017 Transfers (B,C,W/C) (FIM): 6 Sit to Lying (QC): 6 Lying-Sitting on Side/Bed(QC): 6 Sit to Stand (QC): 6 Rollin Roll Left to Right (QC): 6 Chair/Vbn-fg-Qfmuy Xfer(QC): 6 Car Transfer (QC): 4 Gait (FIM): 6 Distance: 400' Walk 10 feet (QC): 6 Walk 10ft-Uneven Surface(QC): 6 Walk 50ft with 2 Turns (QC): 6 Walk 150 ft (QC): 6 Gait Level of Assist: 6 Gait Assistive Device: FWW Stairs (FIM): 5 # of Steps: 12 1 Step (curb) (QC): 4 4 Steps (QC): 4 12 Steps (QC): 4 Stairs Level Of Assist: 5 Picking up an Object (QC): 4 PT Plan Problem List Problem List: Activity Tolerance, Functional Strength, Safety, Balance, Gait Treatment/Plan Treatment Plan: Continue Plan of Care Treatment Plan: Bed Mobility, Education, Functional Activity Lynne, Functional Strength, Group Therapy, Gait, Safety, Therapeutic Exercise, Transfers Treatment Duration: Apr 27, 2017 Frequency: At least 5 of 7 days/Wk (IRF) Estimated Hrs Per Day: 1.5 hours per day Patient and/or Family Agrees t: Yes Safety Risks/Education Patient Education: Gait Training, Transfer Techniques, Correct Positioning, Safety Issues Teaching Recipient: Patient Teaching Methods: Discussion Response to Teaching: Verbalize Understanding Time/GCodes Time In: 1315 Time Out: 1330 Total Billed Treatment Time: 15 Total Billed Treatment 1, FA (15m) YESENIA CLAYTON PTA Apr 08, 2017 13:49
--- NOTE | 2017-04-08 15:28 | Speech Therapy Daily Note ---
Speech Daily Progress Note Subjective Date Seen by Provider: Apr 08, 2017 Time Seen by Provider: 14:00 The patient was seated upright in recliner upon entrance. The patient greeted the clinician appropriately and was agreeable to participation in the cognitive treatment session. Objective Assessment of Language Related Functional Activities (FRANCISCO): Functional activities were initiated on this date with the following results: - Telling Time: The patient demonstrated 90% accuracy with telling time on an analog clock. Sustained Attention: The patient was able to remain on-topic for a period of three minutes with one verbal prompt throughout informal conversational exchanges. Assessment Assessment Current Status: Good Progress Treatment Plan Continue Plan of Care Communication Comprehension: 4 Expression: 4 Social Cognition Social Interaction: 5 Problem Solvin Memory: 4 Speech Short Term Goals Short Term Goals Short Term Goals 1. The patient will demonstrate safety problem solving with 90% accuracy, independently. 2. The patient will recall two memory strategies for use at home, independently. 3. The patient will demonstrate sustained attention for a period of 4 minutes with mild clinician cueing. Time Frame-STG: One Week Speech Halfway Goals Halfway Goals 1. The patient will demonstrate improved cognitive linguistic skills for increased safety and function with ADL's in the least restrictive setting. Time Frame: Two Weeks Comprehension: 5 Expression: 5 Social Interaction: 5 Problem Solvin Memory: 4 Speech-Plan Treatment Plan Speech Therapy Treatment Plan: Continue Plan of Care Continue skilled speech pathology treatment to focus on improved problem solving. Treatment Duration: Apr 20, 2017 Frequency: Modified Program (IRF) Estimated Hrs Per Day: .5 hour per day Rehab Potential: Good Safety Risks/Education Teaching Recipient: Patient Teaching Methods: Discussion Response to Teaching: Verbalize Understanding Education Topics Provided: Progression Towards Goals Time Speech Therapy Time In: 14:00 Speech Therapy Time Out: 14:30 Total Billed Time: 30 Billed Treatment Time GWENDOLYN Caldwell ELIZABETH Apr 08, 2017 15:28
[2017-04-08 18:00] VITALS: BP 159/87
[2017-04-08] MEDS: inSUlin DETERMIR 1 UNIT/0.01 ML (LEVEMIR) CHARGE PER UNIT SQ SCH (21:26)
[2017-04-09] MEDS: inSUlin ASPART (NovoLOG) 1 UNIT/0.01 ML (CHARGE PER UNIT) SC SCH ×4 (05:26→21:08)
[2017-04-09 06:00] VITALS: BP 143/71
--- NOTE | 2017-04-09 08:15 | PM & R (SOAP) Progress Note ---
Subjective Time Seen by Provider: 08:00 Subjective/Events-last exam Patient was seen in his room this AM Patient SBA for transfers Objective Exam Last Set of Vital Signs Vital Signs Date Time Temp Pulse Resp B/P (MAP) Pulse Ox O2 Delivery O2 Flow Rate FiO2 04/09/17 06:00 97.5 69 20 143/71 (95) 100 Room Air Capillary Refill : I&O Intake and Output 04/09/17 00:00 Intake Total 610 ml Balance 610 ml Intake Oral 610 ml # Voids 3 # Bowel Movements 1 General: Alert, Oriented X3, Cooperative, No Acute Distress HEENT: Atraumatic, PERRLA, EOMI, Mucous Memb Moist/[place] Neck: Supple, No JVD Lungs: Clear to Auscultation Heart: Regular Rate Abdomen: Normal Bowel Sounds, Soft, No Tenderness Extremities: Other (trace edema) Neuro: Other (Mild gait imbalance and weakness and mild cognitive impairment) Results Lab Laboratory Tests 04/06/17 11:14: Glucometer 305H 04/06/17 15:59: Glucometer 180H 04/06/17 20:02: Glucometer 118H 04/07/17 05:15: Glucometer 105 04/07/17 10:52: Glucometer 203H 04/07/17 18:03: Glucometer 210H 04/07/17 20:12: Glucometer 245H 04/08/17 05:13: Glucometer 83 04/08/17 11:31: Glucometer 175H 04/08/17 16:59: Glucometer 267H 04/08/17 20:56: Glucometer 156H 04/09/17 05:21: Glucometer 118H Assessment/Plan Assessment Metabolic encephalopathy secondary to DKA and seizures treated at [facility] Seiazures controlled Anemia of chronic D ESRD on Dialysis TIW MMarcelloWF DM controlled Plan Continue PT/OT/ST Team Conference held 04-07-17 See report for full functional update and POC and ELOS Appreciate [facility] Physicians note Discharge set tentatively for Wednesday04-12-17 to home with family and C Current meds and labs noted LOI FLEMING MD Apr 09, 2017 08:15
[2017-04-09] MEDS: meTOprolol SUCCINATE 100 MG (TOPROL XL) TAB PO SCH (08:19)
[2017-04-09] MEDS: amLODIPine 5 MG (NORVASC) TAB PO SCH (08:19)
[2017-04-09] MEDS ORDERED: LEVE500T6 PO (08:19)
[2017-04-09] MEDS: FERROUS SULF 325 MG (IRON) TAB PO SCH (08:19)
[2017-04-09] MEDS: ASCORBIC ACID (VIT C) 500 MG TABLET PO SCH (08:20)
--- NOTE | 2017-04-09 10:39 | Physical Therapy Daily Note ---
PT Daily Note-Current Subjective Agrees to Rx. States s he is getting a slow start today. Pain Numeric Pain Scale: 0-No Pain Mental Status Patient Orientation: Normal For Age Transfers Functional [place] Measure 0=Not Assessed/NA 4=Minimal Assistance 1=Total Assistance 5=Supervision or Setup 2=Maximal Assistance 6=Modified [place] 3=Moderate Assistance 7=Complete IndependenceIRFPAI Quality Coding Scale 6 Independent with activity with or without an assistive device 5 Patient requires set up or clean up by helper. Patient completes activity by themselves 4 Supervision or touching assist (CGA). [place] provide cues , steadying assist 3 The helper provides less than half the effort to complete the activity 2 The helper provides more than half the effort to complete the activity 1 Dependent. The helper does all the effort to complete an activity 7 Patient refused to complete or attempt activity 9 The patient did not perform the activity before the current illness or injury 88 Not attempted due to Medical conditions or safety concerns Transfers (B, C, W/C) (FIM): 6 Scootin Rollin Supine to/from Sit: 6 Sit to/from Stand: 6 Bed to/from Chair: 6 up ad maddie Weight Bearing Right Lower Extremity: Right Full Weight Bearing Left Lower Extremity: Left Full Weight Bearing Gait Training Does the Patient Walk?: Yes Gait (FIM): 6 Distance (FIM): 3=150 ft (300) Gait Level of Assist: 6 Gait Persons Needed: 0 Gait Assistive Device: FWW gait on carpet and uneven surface no LOB or issues Wheelchair Training Does the Pt Use a Wheelchair?: No Stair Training Stair Training: Handrails/: 1 handrail Stairs (FIM): 5 #of Steps: 4 Stairs: Pattern: Reciprocal Level of Assist: 5 Exercises Standing: Hip Abduction, Hamstring curls, Heel/toe raises, Marching, Mini squats, Sit to Stand Standing Reps: 15 NuStep Minutes: 15 NuStep Workload: 5 Assessment Current Status: Good Progress up ad maddie, toilets, dresses etc. does fatigue PT Short Term Goals Short Term Goals Time Frame: Apr 13, 2017 Transfers (B,C,W/C) (FIM): 5 Gait (FIM): 5 Gait Distance Comment: 300' Gait Level of Assist: 5 Gait Assistive Device: FWW PT Stereotype Finisher Goals Mcfp Goals PT Mcfp Goals Time Frame: Apr 27, 2017 Transfers (B,C,W/C) (FIM): 6 Sit to Lying (QC): 6 Lying-Sitting on Side/Bed(QC): 6 Sit to Stand (QC): 6 Rollin Roll Left to Right (QC): 6 Chair/Tqe-ka-Kgzhc Xfer(QC): 6 Car Transfer (QC): 4 Gait (FIM): 6 Distance: 400' Walk 10 feet (QC): 6 Walk 10ft-Uneven Surface(QC): 6 Walk 50ft with 2 Turns (QC): 6 Walk 150 ft (QC): 6 Gait Level of Assist: 6 Gait Assistive Device: FWW Stairs (FIM): 5 # of Steps: 12 1 Step (curb) (QC): 4 4 Steps (QC): 4 12 Steps (QC): 4 Stairs Level Of Assist: 5 Picking up an Object (QC): 4 PT Plan Treatment/Plan Treatment Plan: Continue Plan of Care Treatment Plan: Bed Mobility, Education, Functional Activity Lynne, Functional Strength, Group Therapy, Gait, Safety, Therapeutic Exercise, Transfers Treatment Duration: Apr 27, 2017 Frequency: At least 5 of 7 days/Wk (IRF) Estimated Hrs Per Day: 1.5 hours per day Patient and/or Family Agrees t: Yes Safety Risks/Education Patient Education: Gait Training, Transfer Techniques, Steps, Correct Positioning, Safety Issues Teaching Recipient: Patient Teaching Methods: Demonstration, Discussion Response to Teaching: Verbalize Understanding, Return Demonstration Time/GCodes Time In: 800 (1000) Time Out: 900 (1015) Total Billed Treatment Time: 75 Total Billed Treatment 1,GT25m,EX50m G Codes Necessary: AL Duran ELECTRIFICATION ADVISER Apr 09, 2017 10:38
--- NOTE | 2017-04-09 11:15 | Speech Therapy Daily Note ---
Speech Daily Progress Note Subjective Date Seen by Provider: Apr 09, 2017 Time Seen by Provider: 09:00 The patient was seated upright in recliner upon entrance. The patient greeted the clinician appropriately and was agreeable to participation in the cognitive treatment session. Objective Sequencing of ADL's: The patient was provided three pictures which displayed a specific ADL (pouring a drink, addressing an envelope, reading a book, etc.). The patient was asked to place the cards in an appropriate sequence. The patient demonstrated good accuracy with this task, displaying 80% accuracy with mild clinician verbal prompting. Assessment Assessment Current Status: Good Progress Treatment Plan Continue Plan of Care Communication Comprehension: 5 Expression: 4 Social Cognition Social Interaction: 5 Problem Solvin Memory: 4 Speech Short Term Goals Short Term Goals Short Term Goals 1. The patient will demonstrate safety problem solving with 90% accuracy, independently. 2. The patient will recall two memory strategies for use at home, independently. 3. The patient will demonstrate sustained attention for a period of 4 minutes with mild clinician cueing. Time Frame-STG: One Week Speech Machine Stuffer Automatic Goals Machine Stuffer Automatic Goals 1. The patient will demonstrate improved cognitive linguistic skills for increased safety and function with ADL's in the least restrictive setting. Time Frame: Two Weeks Comprehension: 5 Expression: 5 Social Interaction: 5 Problem Solvin Memory: 4 Speech-Plan Treatment Plan Speech Therapy Treatment Plan: Continue Plan of Care Continue skilled speech pathology to target functional problem solving and improved expressive communication. Treatment Duration: Apr 20, 2017 Frequency: Modified Program (IRF) Estimated Hrs Per Day: .5 hour per day Rehab Potential: Good Safety Risks/Education Teaching Recipient: Patient Teaching Methods: Discussion Response to Teaching: Verbalize Understanding Education Topics Provided: Sequencing of ADL's. Time Speech Therapy Time In: 09:00 Speech Therapy Time Out: 09:30 Total Billed Time: 30 Billed Treatment Time GWENDOLYN Caldwell ELIZABETH ST Apr 09, 2017 11:15
--- NOTE | 2017-04-09 13:59 | Occupational Ther Daily Note ---
OT Current Status-Daily Note Subjective No pain reported. Appearance Pt. up in chair. Pt. has already bathed and dressed self. Agrees to work with OT. Mental Status/Objective Patient Orientation: Person, Place, Time, Situation Functional [place] Measure 0=Not Assessed/NA 4=Minimal Assistance 1=Total Assistance 5=Supervision or Setup 2=Maximal Assistance 6=Modified [place] 3=Moderate Assistance 7=Complete [place] ADL-Treatment Functional [place] Measure 0=Not Assessed/NA 4=Minimal Assistance 1=Total Assistance 5=Supervision or Setup 2=Maximal Assistance 6=Modified [place] 3=Moderate Assistance 7=Complete IndependenceIRFPAI Quality Coding Scale 6 Independent with activity with or without an assistive device 5 Patient requires set up or clean up by helper. Patient completes activity by themselves 4 Supervision or touching assist (CGA). [place] provide cues , steadying assist 3 The helper provides less than half the effort to complete the activity 2 The helper provides more than half the effort to complete the activity 1 Dependent. The helper does all the effort to complete an activity 7 Patient refused to complete or attempt activity 9 The patient did not perform the activity before the current illness or injury 88 Not attempted due to Medical conditions or safety concerns Transfers (B, C, W/C) (FIM): 6 (Pt. is able to transfer and ambulate with Mod I.) Other Treatment Pt. ambulates with mod I using walker to dining area. Completed kitchen task to retrieve items from high and low cabinets, refridgerator. Pt. does this with safe technique and no deficits. Pt. tolerates well. Pt. is educated on walker safety, walker baskets and walker trays. Verbalizes understanding. Ambulated to therapy gym and completed three bilateral UE exercises x 15 reps each in all planes x 2 sets with red theraband. Tolerated well with emphasis to increase overall strength and independence with daily tasks. Ambulated back to room with all needs met. Education OT Patient Education: Correct positioning, Exercise program, Modified ADL techniques, Progress toward Goal/Update tx plan, Purpose of tx/functional activities, Reviewed precautions, Rehab process, Transfer techniques Teaching Recipient: Patient Teaching Methods: Demonstration, Discussion Response to Teaching: Verbalize Understanding, Return Demonstration OT Short Term Goals Short Term Goals Transfers (B,C,W/C) (FIM): 5 1=Demonstrate adherence to instructed precautions during ADL tasks. 2=Patient will verbalize/demonstrate understanding of assistive devices/ modifications for ADL. 3=Patient will improve strength/tolerance for activity to enable patient to perform ADL's. OT Snuff Box Finisher Goals Snuff Box Finisher Goals Time Frame: Apr 13, 2017 Eating (FIM): 7 Eating (QC): 6 Groomin Oral Hygiene (QC): 6 Bathing(FIM): 6 Shower/Bathe Self (QC): 6 Upper Body Dressing(FIM): 6 Upper Body Dressing (QC): 6 Lower Body Dressing(FIM): 6 Lower Body Dressing (QC): 6 On/Off Footwear (QC): 6 Toileting(FIM): 6 Toileting Hygiene (QC): 6 Transfers (B,C,W/C) (FIM): 6 Toilet/Commode Transfer(FIM): 6 Toilet/Commode Transfer (QC): 6 Tub Transfer(FIM): 6 Shower Transfer(FIM): 6 Comprehension(FIM): 5 Expression (FIM): 5 Social Interaction(FIM): 5 Problem Solving(FIM): 4 Memory(FIM): 4 Additional Goals: 1-Demonstrate ADL Tasks, 2-Verbalize Understanding, 3- ImproveStrength/Lynne 1=Demonstrate adherence to instructed precautions during ADL tasks. 2=Patient will verbalize/demonstrate understanding of assistive devices/ modifications for ADL. 3=Patient will improve strength/tolerance for activity to enable patient to perform ADL's. OT Education/Plan Problem List/Assessment Assessment: Decreased Activ Tolerance, Decreased UE Strength, Dependent Transfers, Impaired Bed Mobility, Impaired Funct Balance, Impaired I ADL's, Impaired Self-Care Skills, Restricted Funct UE ROM Discharge Recommendations Plan/Recommendations: Continue POC Therapy D/C Recommendations: Home w/ Family Support Treatment Plan/Plan of Care Treatment,Training & Education: Yes Patient would benefit from OT for education, treatment and training to promote independence in ADL's, mobility, safety and/or upper extremity function for ADL' s. Plan of Care: ADL Retraining, Functional Mobility, UE Funct Exercise/Act Treatment Duration: Apr 13, 2017 Frequency: At least 5 of 7 days/Wk (IRF) Estimated Hrs Per Day: 1.5 hours per day Agreement: Yes Rehab Potential: Good Time/GCodes Start Time: 09:30 Stop Time: 10:00 Total Time Billed (hr/min): 30 Billed Treatment Time 1, EX x 15minutes, ADL x 15minutes DREW OLVERA OT Apr 09, 2017 13:59
--- NOTE | 2017-04-09 14:03 | Occupational Ther Daily Note ---
OT Current Status-Daily Note Subjective No pain reported. Appearance Pt. up in chair. States that he is getting tired. Agrees to work with OT. Mental Status/Objective Patient Orientation: Person, Place, Time, Situation Functional [place] Measure 0=Not Assessed/NA 4=Minimal Assistance 1=Total Assistance 5=Supervision or Setup 2=Maximal Assistance 6=Modified [place] 3=Moderate Assistance 7=Complete [place] ADL-Treatment Functional [place] Measure 0=Not Assessed/NA 4=Minimal Assistance 1=Total Assistance 5=Supervision or Setup 2=Maximal Assistance 6=Modified [place] 3=Moderate Assistance 7=Complete IndependenceIRFPAI Quality Coding Scale 6 Independent with activity with or without an assistive device 5 Patient requires set up or clean up by helper. Patient completes activity by themselves 4 Supervision or touching assist (CGA). [place] provide cues , steadying assist 3 The helper provides less than half the effort to complete the activity 2 The helper provides more than half the effort to complete the activity 1 Dependent. The helper does all the effort to complete an activity 7 Patient refused to complete or attempt activity 9 The patient did not perform the activity before the current illness or injury 88 Not attempted due to Medical conditions or safety concerns Other Treatment Pt. ambulated with OT with mod I. Ambulated to elevator and to first floor. Went to chapel and sat on benches. Took rest break and talked about home set up. Pt. states that he is ready to go home. States that he feels he will be able to complete laundry tasks, and will have assist from son and daughter in law. After rest break, ambulated with walker to elevator, and back to second floor. Went to therapy gym and completed 4 lb. dumbbells x 15 reps x 5 exercises x 2 sets in all planes. Ambulated back to room after rest break. All needs met and pt. ready to go to dialysis. Education OT Patient Education: Correct positioning, Exercise program, Modified ADL techniques, Progress toward Goal/Update tx plan, Purpose of tx/functional activities, Reviewed precautions, Rehab process, Transfer techniques Teaching Recipient: Patient Teaching Methods: Demonstration, Discussion Response to Teaching: Verbalize Understanding, Return Demonstration OT Short Term Goals Short Term Goals Transfers (B,C,W/C) (FIM): 5 1=Demonstrate adherence to instructed precautions during ADL tasks. 2=Patient will verbalize/demonstrate understanding of assistive devices/ modifications for ADL. 3=Patient will improve strength/tolerance for activity to enable patient to perform ADL's. OT Care Home Goals Care Home Goals Time Frame: Apr 13, 2017 Eating (FIM): 7 Eating (QC): 6 Groomin Oral Hygiene (QC): 6 Bathing(FIM): 6 Shower/Bathe Self (QC): 6 Upper Body Dressing(FIM): 6 Upper Body Dressing (QC): 6 Lower Body Dressing(FIM): 6 Lower Body Dressing (QC): 6 On/Off Footwear (QC): 6 Toileting(FIM): 6 Toileting Hygiene (QC): 6 Transfers (B,C,W/C) (FIM): 6 Toilet/Commode Transfer(FIM): 6 Toilet/Commode Transfer (QC): 6 Tub Transfer(FIM): 6 Shower Transfer(FIM): 6 Comprehension(FIM): 5 Expression (FIM): 5 Social Interaction(FIM): 5 Problem Solving(FIM): 4 Memory(FIM): 4 Additional Goals: 1-Demonstrate ADL Tasks, 2-Verbalize Understanding, 3- ImproveStrength/Lynne 1=Demonstrate adherence to instructed precautions during ADL tasks. 2=Patient will verbalize/demonstrate understanding of assistive devices/ modifications for ADL. 3=Patient will improve strength/tolerance for activity to enable patient to perform ADL's. OT Education/Plan Problem List/Assessment Assessment: Decreased Activ Tolerance Discharge Recommendations Plan/Recommendations: Continue POC Therapy D/C Recommendations: Home w/ Family Support Treatment Plan/Plan of Care Treatment,Training & Education: Yes Patient would benefit from OT for education, treatment and training to promote independence in ADL's, mobility, safety and/or upper extremity function for ADL' s. Plan of Care: ADL Retraining Treatment Duration: Apr 13, 2017 Frequency: At least 5 of 7 days/Wk (IRF) Estimated Hrs Per Day: 1.5 hours per day Agreement: Yes Rehab Potential: Good Time/GCodes Start Time: 10:45 Stop Time: 11:30 Total Time Billed (hr/min): 45 Billed Treatment Time 1, FA x 30minutes, Ex x 15minutes DREW OLVERA OT Apr 09, 2017 14:03
[2017-04-09] MEDS: LEVETIRACETAM 500 MG (KEPPRA) TAB PO SCH (18:14)
[2017-04-09 18:20] VITALS: BP 129/76
[2017-04-09] MEDS: inSUlin DETERMIR 1 UNIT/0.01 ML (LEVEMIR) CHARGE PER UNIT SQ SCH (21:08)
[2017-04-10 05:07] VITALS: BP 119/64
[2017-04-10] MEDS: inSUlin ASPART (NovoLOG) 1 UNIT/0.01 ML (CHARGE PER UNIT) SC SCH ×4 (05:24→21:19)
[2017-04-10] MEDS: FERROUS SULF 325 MG (IRON) TAB PO SCH (05:24)
[2017-04-10] MEDS: meTOprolol SUCCINATE 100 MG (TOPROL XL) TAB PO SCH (08:12)
[2017-04-10] MEDS: amLODIPine 5 MG (NORVASC) TAB PO SCH (08:12)
[2017-04-10] MEDS: ASCORBIC ACID (VIT C) 500 MG TABLET PO SCH (08:12)
--- NOTE | 2017-04-10 10:27 | Physical Therapy Daily Note ---
PT Daily Note-Current Subjective Patient is up in his room independently. He states, "I feel dysfunctional." Pain Numeric Pain Scale: 0-No Pain Location: No Pain Reported Mental Status Patient Orientation: Normal For Age Transfers Functional [place] Measure 0=Not Assessed/NA 4=Minimal Assistance 1=Total Assistance 5=Supervision or Setup 2=Maximal Assistance 6=Modified [place] 3=Moderate Assistance 7=Complete IndependenceIRFPAI Quality Coding Scale 6 Independent with activity with or without an assistive device 5 Patient requires set up or clean up by helper. Patient completes activity by themselves 4 Supervision or touching assist (CGA). [place] provide cues , steadying assist 3 The helper provides less than half the effort to complete the activity 2 The helper provides more than half the effort to complete the activity 1 Dependent. The helper does all the effort to complete an activity 7 Patient refused to complete or attempt activity 9 The patient did not perform the activity before the current illness or injury 88 Not attempted due to Medical conditions or safety concerns Weight Bearing Right Lower Extremity: Right Full Weight Bearing Left Lower Extremity: Left Full Weight Bearing Gait Training Does the Patient Walk?: Yes Gait (FIM): 6 Distance (FIM): 3=150 ft Distance: >500' Walk 10 feet (QC): 6 Walk 50 ft with 2 Turns(QC): 6 Walk 150 ft (QC): 6 Gait Level of Assist: 6 Gait Assistive Device: FWW slow, steady Assessment Current Status: Excellent Progress PT Short Term Goals Short Term Goals Time Frame: Apr 13, 2017 Transfers (B,C,W/C) (FIM): 5 Gait (FIM): 5 Gait Distance Comment: 300' Gait Level of Assist: 5 Gait Assistive Device: FWW PT Bundler Goals Bundler Goals PT Detention Goals Time Frame: Apr 27, 2017 Transfers (B,C,W/C) (FIM): 6 Sit to Lying (QC): 6 Lying-Sitting on Side/Bed(QC): 6 Sit to Stand (QC): 6 Rollin Roll Left to Right (QC): 6 Chair/Hlv-jn-Evhhf Xfer(QC): 6 Car Transfer (QC): 4 Gait (FIM): 6 Distance: 400' Walk 10 feet (QC): 6 Walk 10ft-Uneven Surface(QC): 6 Walk 50ft with 2 Turns (QC): 6 Walk 150 ft (QC): 6 Gait Level of Assist: 6 Gait Assistive Device: FWW Stairs (FIM): 5 # of Steps: 12 1 Step (curb) (QC): 4 4 Steps (QC): 4 12 Steps (QC): 4 Stairs Level Of Assist: 5 Picking up an Object (QC): 4 PT Plan Treatment/Plan Treatment Plan: Continue Plan of Care Treatment Plan: Bed Mobility, Education, Functional Activity Lynne, Functional Strength, Group Therapy, Gait, Safety, Therapeutic Exercise, Transfers Treatment Duration: Apr 27, 2017 Frequency: At least 5 of 7 days/Wk (IRF) Estimated Hrs Per Day: 1.5 hours per day Patient and/or Family Agrees t: Yes Time/GCodes Time In: 1011 Time Out: 1021 Total Billed Treatment Time: 10 Total Billed Treatment 1 visit GT 10 min IRENA GARCIA PT Apr 10, 2017 10:27
[2017-04-10] MEDS: LEVETIRACETAM 500 MG (KEPPRA) TAB PO SCH (11:54)
[2017-04-10 17:47] VITALS: BP 143/78
[2017-04-10] MEDS: inSUlin DETERMIR 1 UNIT/0.01 ML (LEVEMIR) CHARGE PER UNIT SQ SCH (21:20)
[2017-04-11 06:00] VITALS: BP 139/69
[2017-04-11] MEDS: inSUlin ASPART (NovoLOG) 1 UNIT/0.01 ML (CHARGE PER UNIT) SC SCH ×4 (06:59→21:01)
[2017-04-11] MEDS: FERROUS SULF 325 MG (IRON) TAB PO SCH (07:00)
[2017-04-11] MEDS: ASCORBIC ACID (VIT C) 500 MG TABLET PO SCH (08:46)
[2017-04-11] MEDS: amLODIPine 5 MG (NORVASC) TAB PO SCH (08:46)
[2017-04-11] MEDS: meTOprolol SUCCINATE 100 MG (TOPROL XL) TAB PO SCH (08:46)
[2017-04-11] MEDS: LEVETIRACETAM 500 MG (KEPPRA) TAB PO SCH (12:17)
[2017-04-11 18:13] VITALS: BP 139/79
[2017-04-11] MEDS: inSUlin DETERMIR 1 UNIT/0.01 ML (LEVEMIR) CHARGE PER UNIT SQ SCH (21:01)
[2017-04-12 04:47] VITALS: BP 143/72
[2017-04-12] MEDS: inSUlin ASPART (NovoLOG) 1 UNIT/0.01 ML (CHARGE PER UNIT) SC SCH ×2 (05:15→11:21)
[2017-04-12] MEDS: FERROUS SULF 325 MG (IRON) TAB PO SCH (06:04)
[2017-04-12] MEDS: meTOprolol SUCCINATE 100 MG (TOPROL XL) TAB PO SCH (08:29)
[2017-04-12] MEDS: amLODIPine 5 MG (NORVASC) TAB PO SCH (08:29)
[2017-04-12] MEDS: ASCORBIC ACID (VIT C) 500 MG TABLET PO SCH (08:29)
--- NOTE | 2017-04-12 08:31 | Physical Therapy Daily Note ---
PT Daily Note-Current Subjective Patient in bed pre tx, agrees to PT, has no complaints of pain. Patient still has some complaints of cloudiness in his vision and states that his memory is impaired. Appearance Patient in recliner post tx with nurse call, phone, tray, all needs met. Mental Status Patient Orientation: Person, Place, Situation Transfers Functional [place] Measure 0=Not Assessed/NA 4=Minimal Assistance 1=Total Assistance 5=Supervision or Setup 2=Maximal Assistance 6=Modified [place] 3=Moderate Assistance 7=Complete IndependenceIRFPAI Quality Coding Scale 6 Independent with activity with or without an assistive device 5 Patient requires set up or clean up by helper. Patient completes activity by themselves 4 Supervision or touching assist (CGA). [place] provide cues , steadying assist 3 The helper provides less than half the effort to complete the activity 2 The helper provides more than half the effort to complete the activity 1 Dependent. The helper does all the effort to complete an activity 7 Patient refused to complete or attempt activity 9 The patient did not perform the activity before the current illness or injury 88 Not attempted due to Medical conditions or safety concerns Transfers (B, C, W/C) (FIM): 6 Scootin Rollin Roll Left to Right (QC): 6 Supine to/from Sit: 6 Sit to/from Stand: 6 Sit to Lying (QC): 6 Sit to Stand (QC): 6 Chair/Wmq-bu-Wzfva Xfer(QC): 6 Bed to/from Chair: 6 Car Transfer (QC): 6 Patient performs bed mobility and transfers with mod I. Weight Bearing Right Lower Extremity: Right Full Weight Bearing Left Lower Extremity: Left Full Weight Bearing Gait Training Gait (FIM): 6 Distance: 600' Walk 10 feet (QC): 6 Walk 50 ft with 2 Turns(QC): 6 Walk 150 ft (QC): 6 Walking 10ft/uneven surface-QC: 6 Gait Level of Assist: 6 Gait Persons Needed: 1 Gait Assistive Device: FWW Patient can ambulate 600' with a rolling walker with mod I, including 10' over an uneven surface and 50' with at least 2 turns of 90 degrees. Wheelchair Training Does the Pt Use a Wheelchair?: No Stair Training Stair Training: Handrails/: 1 handrail Stairs (FIM): 4 #of Steps: 12 1 Step (curb) (QC): 4 4 Steps (QC): 4 12 Steps (QC): 4 Stairs: Pattern: Step to Level of Assist: 4 Patient can go up and down 12 steps using 1 handrail with CGA. He was mostly SBA but needed CGA a couple of times due to unsteadiness. Balance Picking up an Object (QC): 6 Treatments bed mobility and transfers, ambulation, car transfers, stairs Assessment Current Status: Fair Progress Good progress, patient is mod I with all mobility except stairs. PT Short Term Goals Short Term Goals Time Frame: Apr 13, 2017 Transfers (B,C,W/C) (FIM): 5 Gait (FIM): 5 Gait Distance Comment: 300' Gait Level of Assist: 5 Gait Assistive Device: FWW PT Chcf Goals Chcf Goals PT Critical Care Rn Goals Time Frame: Apr 27, 2017 Transfers (B,C,W/C) (FIM): 6 (met) Sit to Lying (QC): 6 (met) Lying-Sitting on Side/Bed(QC): 6 (met) Sit to Stand (QC): 6 (met) Rollin (met) Roll Left to Right (QC): 6 (met) Chair/Sfq-si-[place] Xfer(QC): 6 (met) Car Transfer (QC): 4 (met) Gait (FIM): 6 (met) Distance: 400' Walk 10 feet (QC): 6 (met) Walk 10ft-Uneven Surface(QC): 6 (met) Walk 50ft with 2 Turns (QC): 6 (met) Walk 150 ft (QC): 6 (met) Gait Level of Assist: 6 (met) Gait Assistive Device: FWW Stairs (FIM): 5 # of Steps: 12 1 Step (curb) (QC): 4 4 Steps (QC): 4 12 Steps (QC): 4 Stairs Level Of Assist: 5 Picking up an Object (QC): 4 PT Plan Problem List Problem List: Activity Tolerance, Functional Strength, Safety, Balance, Gait, Transfer Treatment/Plan Treatment Plan: Continue Plan of Care Treatment Plan: Bed Mobility, Education, Functional Activity Lynne, Functional Strength, Group Therapy, Gait, Safety, Therapeutic Exercise, Transfers Treatment Duration: Apr 27, 2017 Frequency: At least 5 of 7 days/Wk (IRF) Estimated Hrs Per Day: 1.5 hours per day Patient and/or Family Agrees t: Yes Safety Risks/Education Patient Education: Gait Training, Transfer Techniques, Steps, Correct Positioning, Safety Issues Teaching Recipient: Patient Teaching Methods: Demonstration, Discussion Response to Teaching: Reinforcement Needed Time/GCodes Time In: 800 Time Out: 830 Total Billed Treatment Time: 30 Total Billed Treatment 1 visit FA 15' GT 15' RAQUEL CUEVAS PT Apr 12, 2017 08:31
--- NOTE | 2017-04-12 08:37 | Therapy Team Discharge Summary ---
Therapy Discharge Summary Discharge Recommendations Date of Discharge Therapy D/C Recommendations: Home w/ Family Support Physical Therapy Patient came to rehab with debility. Upon evaluation patient performed bed mobility with SBA, supine to sit with SBA, sit to stand and stand pivot with CGA , and car transfer with CGA, ambulated 200' with a rolling walker with CGA, including 50' with at least 2 turns of 90 degrees and 10' over an uneven surface , and went up and down 4 steps using 1 handrail with CGA. Patient has been performing bed mobility and transfer training, balance and endurance training, functional strengthening, stair training, gait training, and education. Patient has made good progress and has met all of his senior living goals except for stairs. Now, patient performs bed mobility and transfers with mod I, ambulates 600' with a rolling walker with mod I (including 10' over an uneven surface and 50' with at least 2 turns of 90 degrees), performs a car transfer with mod I, picks up an object from the floor with mod I, and can go up and down 12 steps using 1 handrail with CGA. Patient is being discharged from this facility today and will be discharged from PT at this time. Occupational Therapy Decreased Activ Tolerance PT Group Home Goals Group Home Goals PT Group Home Goals Time Frame: Apr 27, 2017 Transfers (B,C,W/C) (FIM): 6 (met) Roll Left to Right (QC): 6 (met) Sit to Lying (QC): 6 (met) Lying-Sitting on Side/Bed(QC): 6 (met) Sit to Stand (QC): 6 (met) Chair/Jnd-ex-[place] Xfer(QC): 6 (met) Car Transfer (QC): 4 (met) Gait (FIM): 6 (met) Distance: 400' Walk 10 feet (QC): 6 (met) Walk 10ft-Uneven Surface(QC): 6 (met) Walk 50ft with 2 Turns (QC): 6 (met) Walk 150 ft (QC): 6 (met) Gait Level of Assist: 6 (met) Gait Assistive Device: FWW Stairs (FIM): 5 # of Steps: 12 1 Step (curb) (QC): 4 4 Steps (QC): 4 12 Steps (QC): 4 Stairs Level Of Assist: 5 Picking up an Object (QC): 4 OT Group Home Goals Group Home Goals Time Frame: Apr 13, 2017 Eating (FIM): 7 Eating (QC): 6 Oral Hygiene (QC): 6 Grooming(FIM): 6 Bathing(FIM): 6 Shower/Bathe Self (QC): 6 Upper Body Dressing(FIM): 6 Upper Body Dressing (QC): 6 Lower Body Dressing(FIM): 6 Lower Body Dressing (QC): 6 On/Off Footwear (QC): 6 Toileting(FIM): 6 Toileting Hygiene (QC): 6 Transfers (B,C,W/C) (FIM): 6 Toilet/Commode Transfer(FIM): 6 Toilet/Commode Transfer (QC): 6 Tub Transfer(FIM): 6 Shower Transfer(FIM): 6 Comprehension(FIM): 5 Expression (FIM): 5 Social Interaction(FIM): 5 Problem Solving(FIM): 4 Memory(FIM): 4 Additional Goals: 1-Demonstrate ADL Tasks, 2-Verbalize Understanding, 3- ImproveStrength/Lynne 1=Demonstrate adherence to instructed precautions during ADL tasks. 2=Patient will verbalize/demonstrate understanding of assistive devices/ modifications for ADL. 3=Patient will improve strength/tolerance for activity to enable patient to perform ADL's. Speech Group Home Goals Group Home Goals 1. The patient will demonstrate improved cognitive linguistic skills for increased safety and function with ADL's in the least restrictive setting. Time Frame: Two Weeks Comprehension: 5 Expression: 5 Social Interaction: 5 Problem Solvin Memory: 4 RAQUEL CUEVAS PT Apr 12, 2017 08:37
--- NOTE | 2017-04-12 09:38 | Speech Therapy Daily Note ---
Speech Daily Progress Note Subjective Date Seen by Provider: Apr 12, 2017 Time Seen by Provider: 08:30 The patient was seated upright in chair upon entrance. The patient greeted the clinician upon entrance and was agreeable to participation in the cognitive treatment session. Objective Orientation: The patient was oriented to month, day of week, date, and year ( independently). Functional Recall/Sequencing of ADL's: The patient was able to accurately detail the sequence of dialysis to the clinician, as well as, his schedule for completion. The patient intermittently displayed word-finding difficulties, however, provided synonyms when appropriate. Repetition: The patient was able to repeat short phrases, extended phrases, five digits forward and three digits in reverse. Assessment Assessment Current Status: Good Progress Treatment Plan Continue Plan of Care Communication Comprehension: 5 Expression: 5 Social Cognition Social Interaction: 5 Problem Solvin Memory: 4 Speech Short Term Goals Short Term Goals Short Term Goals 1. The patient will demonstrate safety problem solving with 90% accuracy, independently. 2. The patient will recall two memory strategies for use at home, independently. 3. The patient will demonstrate sustained attention for a period of 4 minutes with mild clinician cueing. Time Frame-STG: One Week Speech Skilled Nursing Goals [place] Pruner Goals 1. The patient will demonstrate improved cognitive linguistic skills for increased safety and function with ADL's in the least restrictive setting. Time Frame: Two Weeks Comprehension: 5 (MET) Expression: 5 (MET) Social Interaction: 5 (MET) Problem Solvin (MET) Memory: 4 (MET) Speech-Plan Treatment Plan Speech Therapy Treatment Plan: Discontinue ST, Goals Met The patient has met all ST goals and will be discharged from services at this time. Treatment Duration: Apr 20, 2017 Frequency: Modified Program (IRF) Estimated Hrs Per Day: .5 hour per day Rehab Potential: Good Safety Risks/Education Teaching Recipient: Patient Teaching Methods: Discussion Response to Teaching: Verbalize Understanding Education Topics Provided: Plan of Care, Home Memory Strategies Time Speech Therapy Time In: 08:30 Speech Therapy Time Out: 08:45 Total Billed Time: 15 Billed Treatment Time GWENDOLYN Caldwell ELIZABETH Apr 12, 2017 09:38
--- NOTE | 2017-04-12 09:40 | Therapy Team Discharge Summary ---
Therapy Discharge Summary Discharge Recommendations Date of Discharge Therapy D/C Recommendations: Home w/ Family Support Occupational Therapy Decreased Activ Tolerance Speech-Language Pathology The patient was admitted to [facility] with a diagnosis of debility and renal failure. Upon admission, the patient reported "fogginess" and difficulty with his functional memory abilities. Skilled speech pathology focused on functional memory strategies for use at home, as well as, functional tasks (such as sequencing of ADL's). The patient met all ST goals and will be discharged from skilled services at this time. No additional ST needs are warranted following discharge. PT Senior Care Goals [place] Goals PT Senior Care Goals Time Frame: Apr 27, 2017 Transfers (B,C,W/C) (FIM): 6 (met) Roll Left to Right (QC): 6 (met) Sit to Lying (QC): 6 (met) Lying-Sitting on Side/Bed(QC): 6 (met) Sit to Stand (QC): 6 (met) Chair/Jdr-kw-[employer] Xfer(QC): 6 (met) Car Transfer (QC): 4 (met) Gait (FIM): 6 (met) Distance: 400' Walk 10 feet (QC): 6 (met) Walk 10ft-Uneven Surface(QC): 6 (met) Walk 50ft with 2 Turns (QC): 6 (met) Walk 150 ft (QC): 6 (met) Gait Level of Assist: 6 (met) Gait Assistive Device: FWW Stairs (FIM): 5 # of Steps: 12 1 Step (curb) (QC): 4 4 Steps (QC): 4 12 Steps (QC): 4 Stairs Level Of Assist: 5 Picking up an Object (QC): 4 OT Senior Care Goals [place] Goals Time Frame: Apr 13, 2017 Eating (FIM): 7 Eating (QC): 6 Oral Hygiene (QC): 6 Grooming(FIM): 6 Bathing(FIM): 6 Shower/Bathe Self (QC): 6 Upper Body Dressing(FIM): 6 Upper Body Dressing (QC): 6 Lower Body Dressing(FIM): 6 Lower Body Dressing (QC): 6 On/Off Footwear (QC): 6 Toileting(FIM): 6 Toileting Hygiene (QC): 6 Transfers (B,C,W/C) (FIM): 6 Toilet/Commode Transfer(FIM): 6 Toilet/Commode Transfer (QC): 6 Tub Transfer(FIM): 6 Shower Transfer(FIM): 6 Comprehension(FIM): 5 (MET) Expression (FIM): 5 (MET) Social Interaction(FIM): 5 (MET) Problem Solving(FIM): 4 (MET) Memory(FIM): 4 (MET) Additional Goals: 1-Demonstrate ADL Tasks, 2-Verbalize Understanding, 3- ImproveStrength/Lynne 1=Demonstrate adherence to instructed precautions during ADL tasks. 2=Patient will verbalize/demonstrate understanding of assistive devices/ modifications for ADL. 3=Patient will improve strength/tolerance for activity to enable patient to perform ADL's. Speech [place] Goals Senior Care Goals 1. The patient will demonstrate improved cognitive linguistic skills for increased safety and function with ADL's in the least restrictive setting. Time Frame: Two Weeks Comprehension: 5 (MET) Expression: 5 (MET) Social Interaction: 5 (MET) Problem Solvin (MET) Memory: 4 (MET) CHPAINCITO WELSH Apr 12, 2017 09:40
--- NOTE | 2017-04-12 11:30 | Occupational Ther Daily Note ---
OT Current Status-Daily Note Subjective No pain reported. Appearance Pt. up in chair. Agrees to shower. Mental Status/Objective Patient Orientation: Person, Place, Time, Situation Functional [place] Measure 0=Not Assessed/NA 4=Minimal Assistance 1=Total Assistance 5=Supervision or Setup 2=Maximal Assistance 6=Modified [place] 3=Moderate Assistance 7=Complete [place] ADL-Treatment Functional [place] Measure 0=Not Assessed/NA 4=Minimal Assistance 1=Total Assistance 5=Supervision or Setup 2=Maximal Assistance 6=Modified [place] 3=Moderate Assistance 7=Complete IndependenceIRFPAI Quality Coding Scale 6 Independent with activity with or without an assistive device 5 Patient requires set up or clean up by helper. Patient completes activity by themselves 4 Supervision or touching assist (CGA). [place] provide cues , steadying assist 3 The helper provides less than half the effort to complete the activity 2 The helper provides more than half the effort to complete the activity 1 Dependent. The helper does all the effort to complete an activity 7 Patient refused to complete or attempt activity 9 The patient did not perform the activity before the current illness or injury 88 Not attempted due to Medical conditions or safety concerns Eating (FIM): 7 Eating (QC): 6 (Food came while pt. in shower. Pt. able to open packages, butter toast, etc.. on his own.) Grooming (FIM): 6 (Pt. completed all grooming tasks with Mod I using walker, and while standing at sink in bathroom.) Oral Hygiene (QC): 6 Bathing (FIM): 6 (Pt. sat on shower chair, but able to complete all tasks on his own.) Shower/Bathe Self (QC): 6 Upper Body (FIM): 6 Upper Body Dressing (QC): 6 Lower Body Dressing (FIM): 6 Lower Body Dressing (QC): 6 On/Off Footwear (QC): 6 Toileting (FIM): 6 Toileting Hygiene (QC): 6 Transfers (B, C, W/C) (FIM): 6 Toilet/Commode Transfer (FIM): 6 Toilet Transfer (QC): 6 Shower Transfer(FIM): 6 Other Treatment Pt. able to complete all ADL tasks with Mod I using walker and shower chair. No loss of balance noted. Pt. able to retrieve his own clothing with no difficulty. Pt. discharging today after dialysis session. Education OT Patient Education: Modified ADL techniques, Progress toward Goal/Update tx plan, Purpose of tx/functional activities, Reviewed precautions, Rehab process, Transfer techniques, Use of adapted equipment Teaching Recipient: Patient Teaching Methods: Demonstration, Discussion Response to Teaching: Verbalize Understanding, Return Demonstration OT Short Term Goals Short Term Goals Transfers (B,C,W/C) (FIM): 5 1=Demonstrate adherence to instructed precautions during ADL tasks. 2=Patient will verbalize/demonstrate understanding of assistive devices/ modifications for ADL. 3=Patient will improve strength/tolerance for activity to enable patient to perform ADL's. OT Aircraft Metalsmith Goals Jail Goals Time Frame: Apr 13, 2017 Eating (FIM): 7 Eating (QC): 6 Groomin Oral Hygiene (QC): 6 Bathing(FIM): 6 Shower/Bathe Self (QC): 6 Upper Body Dressing(FIM): 6 Upper Body Dressing (QC): 6 Lower Body Dressing(FIM): 6 Lower Body Dressing (QC): 6 On/Off Footwear (QC): 6 Toileting(FIM): 6 Toileting Hygiene (QC): 6 Transfers (B,C,W/C) (FIM): 6 Toilet/Commode Transfer(FIM): 6 Toilet/Commode Transfer (QC): 6 Tub Transfer(FIM): 6 Shower Transfer(FIM): 6 Comprehension(FIM): 5 (MET) Expression (FIM): 5 (MET) Social Interaction(FIM): 5 (MET) Problem Solving(FIM): 4 (MET) Memory(FIM): 4 (MET) Additional Goals: 1-Demonstrate ADL Tasks, 2-Verbalize Understanding, 3- ImproveStrength/Lynne 1=Demonstrate adherence to instructed precautions during ADL tasks. 2=Patient will verbalize/demonstrate understanding of assistive devices/ modifications for ADL. 3=Patient will improve strength/tolerance for activity to enable patient to perform ADL's. OT Education/Plan Problem List/Assessment Assessment: Decreased Activ Tolerance Discharge Recommendations Plan/Recommendations: Discharge/Goals Met Therapy D/C Recommendations: Home w/ Family Support Treatment Plan/Plan of Care Treatment,Training & Education: Yes Plan of Care: ADL Retraining Treatment Duration: Apr 13, 2017 Frequency: At least 5 of 7 days/Wk (IRF) Estimated Hrs Per Day: 1.5 hours per day Agreement: Yes Rehab Potential: Good Time/GCodes Start Time: 09:00 Stop Time: 09:45 Total Time Billed (hr/min): 45 Billed Treatment Time 1, ADL x 3 DREW OLVERA OT Apr 12, 2017 11:30
--- NOTE | 2017-04-12 11:36 | Therapy Team Discharge Summary ---
Therapy Discharge Summary Discharge Recommendations Date of Discharge 04-12-17 Therapy D/C Recommendations: Home w/ Family Support Occupational Therapy Pt. has been seen by occupational therapy to increase overall strength and independence. Pt. has met all goals. Pt. is discharging home today. Pt. is able to complete ADLs with Mod I, with use of walker. Pt's only need for home will be a walker, and pt. would benefit from a shower chair. Pt. to discharge after dialysis today. Decreased Activ Tolerance PT Speeder Machine Operator Goals [facility] Goals PT [facility]itentiary Goals Time Frame: Apr 27, 2017 Transfers (B,C,W/C) (FIM): 6 (met) Roll Left to Right (QC): 6 (met) Sit to Lying (QC): 6 (met) Lying-Sitting on Side/Bed(QC): 6 (met) Sit to Stand (QC): 6 (met) Chair/Hgs-id-Eocvh Xfer(QC): 6 (met) Car Transfer (QC): 4 (met) Gait (FIM): 6 (met) Distance: 400' Walk 10 feet (QC): 6 (met) Walk 10ft-Uneven Surface(QC): 6 (met) Walk 50ft with 2 Turns (QC): 6 (met) Walk 150 ft (QC): 6 (met) Gait Level of Assist: 6 (met) Gait Assistive Device: FWW Stairs (FIM): 5 # of Steps: 12 1 Step (curb) (QC): 4 4 Steps (QC): 4 12 Steps (QC): 4 Stairs Level Of Assist: 5 Picking up an Object (QC): 4 OT Speeder Machine Operator Goals Speeder Machine Operator Goals Time Frame: Apr 13, 2017 Eating (FIM): 7 (met) Eating (QC): 6 (met) Oral Hygiene (QC): 6 (met) Grooming(FIM): 6 (met) Bathing(FIM): 6 (met) Shower/Bathe Self (QC): 6 (met) Upper Body Dressing(FIM): 6 (met) Upper Body Dressing (QC): 6 (met) Lower Body Dressing(FIM): 6 (met) Lower Body Dressing (QC): 6 (met) On/Off Footwear (QC): 6 (met) Toileting(FIM): 6 (met) Toileting Hygiene (QC): 6 (met) Transfers (B,C,W/C) (FIM): 6 (met) Toilet/Commode Transfer(FIM): 6 (met) Toilet/Commode Transfer (QC): 6 (met) Tub Transfer(FIM): 6 (met- dry transfer per pt's request.) Shower Transfer(FIM): 6 (met) Comprehension(FIM): 5 (MET) Expression (FIM): 5 (MET) Social Interaction(FIM): 5 (MET) Problem Solving(FIM): 4 (MET) Memory(FIM): 4 (MET) Additional Goals: 1-Demonstrate ADL Tasks, 2-Verbalize Understanding, 3- ImproveStrength/Lynne 1=Demonstrate adherence to instructed precautions during ADL tasks. 2=Patient will verbalize/demonstrate understanding of assistive devices/ modifications for ADL. 3=Patient will improve strength/tolerance for activity to enable patient to perform ADL's. Speech Penitentiary Goals Penitentiary Goals 1. The patient will demonstrate improved cognitive linguistic skills for increased safety and function with ADL's in the least restrictive setting. Time Frame: Two Weeks Comprehension: 5 (MET) Expression: 5 (MET) Social Interaction: 5 (MET) Problem Solvin (MET) Memory: 4 (MET) DREW OLVERA OT Apr 12, 2017 11:36
[2017-04-12 11:40] VITALS: BP 143/72
--- NOTE | 2017-04-12 18:21 | PM & R (SOAP) Progress Note ---
Subjective Time Seen by Provider: 12:00 Subjective/Events-last exam Patient discharged to home with family and HHC today.Has progressed well Objective Exam Last Set of Vital Signs Vital Signs Date Time Temp Pulse Resp B/P (MAP) Pulse Ox O2 Delivery O2 Flow Rate FiO2 04/12/17 11:40 65 18 143/72 98 Room Air 04/12/17 04:47 97.7 Capillary Refill : I&O Intake and Output 04/12/17 00:00 Intake Total 950 ml Balance 950 ml Intake Oral 950 ml # Voids 2 General: Alert, Oriented X3, Cooperative, No Acute Distress HEENT: Atraumatic, PERRLA, EOMI, Mucous Memb Moist/[place] Neck: Supple, No JVD Lungs: Clear to Auscultation Heart: Regular Rate Abdomen: Normal Bowel Sounds, Soft, No Tenderness Extremities: Other (trace edema) Neuro: Other (Mild gait imbalance and weakness and mild cognitive impairment) Results Lab Laboratory Tests 04/09/17 21:01: Glucometer 390H 04/10/17 05:23: Glucometer 78 04/10/17 11:13: Glucometer 270H 04/10/17 16:15: Glucometer 136H 04/10/17 21:16: Glucometer 340H 04/11/17 06:59: Glucometer 76 04/11/17 11:21: Glucometer 159H 04/11/17 16:13: Glucometer 209H 04/11/17 20:53: Glucometer 278H 04/12/17 04:41: Glucometer 101 04/12/17 11:20: Glucometer 132H Assessment/Plan Assessment Metabolic encephalopathy secondary to DKA and seizures treated at [facility] Seiazures controlled Anemia of chronic D ESRD on Dialysis TIW KrishnaF DM controlled Plan Discharge today to home with family and HHC Current meds and labs noted [facility] See orders LOI FLEMING MD Apr 12, 2017 18:21
== END 2017-04-12 11:40 | disposition home health service (06) | DRG 70 ==
PROVIDERS: ADMIT Physical Medicine & Rehabilitation; ATTEND Physical Medicine & Rehabilitation
DX: G93.41 Metabolic encephalopathy (principal); G40.909 Epilepsy, unspecified, not intractable, without status epilepticus; I12.0 Hypertensive chronic kidney disease with stage 5 chronic kidney disease or end stage renal disease; N18.6 End stage renal disease; D63.1 Anemia in chronic kidney disease; E11.65 Type 2 diabetes mellitus with hyperglycemia; E11.610 Type 2 diabetes mellitus with diabetic neuropathic arthropathy; I73.9 Peripheral vascular disease, unspecified; Z99.2 Dependence on renal dialysis; Z79.4 Long term (current) use of insulin
CPT/HCPCS: 36415; 80053; 82962; 85027

== ENCOUNTER 2017-05-27 12:50 | Outpatient (RCR) | payer MEDICARE ==
[~2017-05-27 12:50] MED LIST changes: +ASCO-262 PO; +FERR325T24 PO; +INSU100I10 SQ; +INSU100I14 SQ; +LEVE500T6 PO
== END 2017-05-27 14:33 | disposition home or self-care (01) ==
PROVIDERS: ATTEND Internal Medicine
DX: R26.2 Difficulty in walking, not elsewhere classified (principal)

== ENCOUNTER → 2018-02-24 | Outpatient (CLI) | payer MEDICARE ==
[~2018-02-24] MED LIST changes: -AMLO10TA2 PO; +AMLO10TA6 PO; +METF-397 PO; -METF500T4 PO
--- NOTE | 2018-02-24 14:42 | Diagnostic Imaging Report ---
INDICATION: Cough. Comparison made with prior examination from 03/30/2017. FINDINGS: The ET and NG tubes have been removed. Heart size is normal. Lungs are clear. There is no pleural effusion or pneumothorax. Mediastinum is unremarkable. IMPRESSION: No acute cardiopulmonary abnormality. Dictated by: Dictated on workstation # [id number]
== END ==
LOC: RAD 13:17
PROVIDERS: ATTEND Nurse Practitioner
DX: R05 Cough (principal); R06.02 Shortness of breath
CPT/HCPCS: 71046

== ENCOUNTER 2018-09-08 02:23 | Emergency (ER) | payer MEDICARE ==
[~2018-09-08] VITALS: Ht 172.7 cm; Wt 76.7 kg
[~2018-09-08 02:23] MED LIST changes: -AMLO10TA6 PO; +AMLO10TA7 PO
--- NOTE | 2018-09-08 02:31 | NUR ---
BLOOD GLUCOSE 130 MG/DL UPON ARRIVAL TO ER.
[2018-09-08 02:44] LABS: BASOPHILS % (AUTO) 0 % (0-10); EOSINOPHILS # (AUTO) 0.1 10^3/uL (0.0-0.3); EOSINOPHILS % (AUTO) 1 % (0-10); HEMATOCRIT 40 % (40-54); HEMOGLOBIN 14.1 G/DL (13.3-17.7); LYMPHOCYTES # (AUTO) 1.1 X 10^3 (1.0-4.0); LYMPHOCYTES % (AUTO) 11 % (12-44); MEAN CORPUSCULAR HEMOGLOBIN 28 PG (25-34); MEAN CORPUSCULAR HGB CONC 35 G/DL (32-36); MEAN CORPUSCULAR VOLUME 80 FL (80-99); MEAN PLATELET VOLUME 9.7 FL (7.4-10.4); MONOCYTES # (AUTO) 0.8 X 10^3 (0.0-1.0); MONOCYTES % (AUTO) 7 % (0-12); NEUTROPHILS # (AUTO) 8.4 X 10^3 (1.8-7.8); NEUTROPHILS % (AUTO) 81 % (42-75); PLATELET COUNT 206 10^3/uL (130-400); RED CELL DISTRIBUTION WIDTH 19.8 % (10.0-14.5); WHITE BLOOD COUNT 10.4 10^3/uL (4.3-11.0)
--- NOTE | 2018-09-08 03:39 | NUR ---
BLOOD GLUCOSE 112 MG/DL. DR. ALFREDO NOTIFIED. NEW ORDERS FOR GEN DIET AND PT GIVEN COLD TRAY AND PEANUT BUTTER AND CRACKERS.
[2018-09-08 03:45] LABS: CALCIUM 8.7 MG/DL (8.5-10.1); CREATININE SERUM 4.8 MG/DL (0.60-1.30); POTASSIUM 3.4 MMOL/L (3.6-5.0)
--- NOTE | 2018-09-08 04:16 | NUR ---
BLOOD GLUCOSE 154 MG/DL. DR. ALFREDO NOTIFIED.
--- NOTE | 2018-09-08 04:23 | ED General ---
General Chief Complaint: Glucose Problems Stated Complaint: LOW BLOOD SUGAR Source of Information: Patient Exam Limitations: No Limitations History of Present Illness Date Seen by Provider: Sep 08, 2018 Time Seen by Provider: 02:25 Initial Comments This 53-year-old gentleman presents to the emergency room via EMS after having a severely low blood sugar at home. His blood sugars were in the 30s and he had significantly altered mental status. EMS administered an amp of D50 which brought his blood sugar up to 250. He was still groggy however. He reports dialysis has recently been making some adjustments to the withdrawal fluid. This may be affecting his blood sugars. He also reports some mild cough recently. Allergies and Home Medications Allergies Coded Allergies: No Known Drug Allergies (Unverified , 05/18/15) Home Medications Ascorbate Calcium 500 Mg Tablet, 500 MG PO DAILY, (Reported) Ferrous Sulfate 325 Mg Tablet, 325 MG PO DAILY, (Reported) Insulin Aspart 300 Units/3 Ml Solution, 300 UNITS SQ AC PRN for HYPERGLYCEMIA, (Reported) Sliding scale: 2 units for glucose 140-180 4 units for glucose 181-220 6 units for glucose 221-260 8 units for glucose 261-300 10 units for glucose 301- 350 12 units for glucose 351-400 14 units for glucose over 400 Insulin Glargine,Hum.rec.anlog 100 Unit/1 Ml Insuln.pen, 10 UNIT SQ HS, (Reported) Levetiracetam 500 Mg Tablet, 750 MG PO DAILY@1200 Prescribed by: LOI FLEMING on 04/09/17 0819 Metoprolol Succinate 100 Mg Tab.er.24h, 100 MG PO DAILY, (Reported) Patient Home Medication List Home Medication List Reviewed: Yes Review of Systems Review of Systems Constitutional: no symptoms reported EENTM: no symptoms reported Respiratory: no symptoms reported Cardiovascular: no symptoms reported Gastrointestinal: no symptoms reported Genitourinary: see HPI Musculoskeletal: no symptoms reported Skin: no symptoms reported Psychiatric/Neurological: See HPI Hematologic/Lymphatic: No Symptoms Reported Immunological/Allergic: no symptoms reported Past Fifueny-Jtkllz-Paccbl Hx Past Med/Social Hx: Reviewed and Corrections made Patient Social History 2nd Hand Smoke Exposure: No Recent Foreign Travel: No Contact w/Someone Who Travel: No Recent Hopitalizations: Yes Immunizations Up To Date Tetanus Booster (TDap): Unknown Date of Influenza Vaccine: Feb 04, 2017 Seasonal Allergies Seasonal Allergies: Yes Past Medical History Surgeries: Yes (dialysis catheter placement) Respiratory: No Cardiac: Yes Hypertension, Peripheral Vascular Neurological: Yes Neuropathy, Seizure Disorder Genitourinary: Yes Renal Failure, Dialysis Gastrointestinal: No Musculoskeletal: Yes Endocrine: Yes Diabetes, Insulin dep HEENT: No Cancer: No Psychosocial: No Integumentary: No Blood Disorders: No Adverse Reaction/Blood Tranf: No Family Medical History Alcoholism 19 FATHER Alzheimer's disease 19 FATHER Arthritis 19 FATHER Asthma G8 BROTHER Cardiovascular disease 19 MOTHER Cataracts 19 MOTHER Diabetes mellitus 19 MOTHER Hypertension 19 MOTHER Hypertension Physical Exam Vital Signs Vital Signs - First Documented 09/08/18 09/08/18 02:24 04:34 Temp 97.3 Pulse 59 Resp 16 B/P (MAP) 183/106 (131) Pulse Ox 98 Capillary Refill : Height, Weight, BMI Height: 5'8.00" Weight: 169lbs. 0.0oz. [id number]; 24.3 BMI Method:Estimated General Appearance: No Apparent Distress, WD/WN HEENT: PERRL/EOMI, Normal ENT Inspection Neck: Normal Inspection Respiratory: Lungs Clear, Normal Breath Sounds, No Accessory Muscle Use, No Res piratory Distress Cardiovascular: Regular Rate, Rhythm, No Edema, No Murmur Gastrointestinal: Normal Bowel Sounds, Non Tender, Soft Extremity: Normal Inspection Neurologic/Psychiatric: Alert, Oriented x3, No Motor/Sensory Deficits, Normal Mood/Affect, nutrition professor II-XII Norm as Tested Skin: Normal Color, Warm/Dry Procedures/Interventions Date of ETT Placement: Mar 30, 2017 Time of ETT Placement: 2053 Progress/Results/Core Measures Suspected Sepsis SIRS Temperature: Pulse: Respiratory Rate: Laboratory Tests 09/08/18 02:30: White Blood Count 10.4 Blood Pressure / Mean: Laboratory Tests 09/08/18 02:30: Platelet Count 206 09/08/18 02:55: Creatinine 4.80H Results/Orders Lab Results Laboratory Tests Test 09/08/18 02:30 09/08/18 02:31 09/08/18 02:55 09/08/18 03:39 Range/Units White Blood Count 10.4 4.3-11.0 10^3/uL Red Blood Count 4.97 4.35-5.85 10^6/uL Hemoglobin 14.1 13.3-17.7 G/DL Hematocrit 40 40-54 % Mean Corpuscular Volume 80 80-99 FL Mean Corpuscular Hemoglobin 28 25-34 PG Mean Corpuscular Hemoglobin Concent 35 32-36 G/DL Red Cell Distribution Width 19.8 H 10.0-14.5 % Platelet Count 206 130-400 10^3/uL Mean Platelet Volume 9.7 7.4-10.4 FL Neutrophils (%) (Auto) 81 H 42-75 % Lymphocytes (%) (Auto) 11 L 12-44 % Monocytes (%) (Auto) 7 0-12 % Eosinophils (%) (Auto) 1 0-10 % Basophils (%) (Auto) 0 0-10 % Neutrophils # (Auto) 8.4 H 1.8-7.8 X 10^3 Lymphocytes # (Auto) 1.1 1.0-4.0 X 10^3 Monocytes # (Auto) 0.8 0.0-1.0 X 10^3 Eosinophils # (Auto) 0.1 0.0-0.3 10^3/uL Basophils # (Auto) 0.0 0.0-0.1 10^3/uL Glucometer 130 H 112 H 70-110 MG/DL Sodium Level 138 135-145 MMOL/L Potassium Level 3.4 L 3.6-5.0 MMOL/L Chloride Level 97 L 98-107 MMOL/L Carbon Dioxide Level 27 21-32 MMOL/L Anion Gap 14 5-14 MMOL/L Blood Urea Nitrogen 15 7-18 MG/DL Creatinine 4.80 H 0.60-1.30 MG/DL Estimat Glomerular Filtration Rate 16 BUN/Creatinine Ratio 3 Glucose Level 111 H 70-105 MG/DL Calcium Level 8.7 8.5-10.1 MG/DL Test 09/08/18 04:16 Range/Units Glucometer 154 H 70-110 MG/DL My Orders Orders - SHARMIN ALFREDO MD Basic Metabolic Panel (09/08/18 02:35) Cbc With Automated Diff (09/08/18 02:35) Chest 1 View, Ap/Pa Only (09/08/18 02:35) Accucheck Stat ONCE (09/08/18 03:43) Accucheck Stat ONCE (09/08/18 04:08) Accucheck Stat ONCE (09/08/18 04:55) Accucheck Stat ONCE (09/08/18 05:00) Vital Signs/I&O 09/08/18 09/08/18 02:24 04:34 Temp 97.3 97.3 Pulse 59 62 Resp 16 16 B/P (MAP) 183/106 (131) 174/99 (124) Pulse Ox 98 Capillary Refill : Progress Note : Progress Note Blood sugar was stable after eating a meal. Multiple fingerstick blood sugars were obtained to ensure stability. Patient was advised to discuss his insulin dosing with his primary care provider. Departure Impression Primary Impression: Hypoglycemia associated with diabetes Additional Impression: Altered mental status Qualified Codes: R41.82 - Altered mental status, unspecified Disposition: HOME, SELF-CARE Condition: Improved Departure-Patient Inst. Decision time for Depature: 04:15 Referrals: [facility] (PCP/Family) Primary Care Physician Patient Instructions: Low Blood Sugar in People With Diabetes Add. Discharge Instructions: Eat a well-balanced diet. Contact your primary care provider as soon as possible this morning and discuss your insulin dosing. Your insulin dosing may need to be adjusted due to changes in your dialysis. Monitor your blood sugars closely at home. Add some sugars or starches into your diet if blood sugars are trending below. Return to the emergency room if you have worsening symptoms. All discharge instructions reviewed with patient and/or family. Voiced understanding. Copy Copies To 1: COLEMAN WILDE MD, JOSHUA T MD Sep 08, 2018 04:23
[2018-09-08 04:34] VITALS: BP 174/99
--- NOTE | 2018-09-08 07:45 | Diagnostic Imaging Report ---
INDICATION: Cough and congestion. Compared 02/24/2018 FINDINGS: The fink size stable. Pulmonary vascularity may be slightly more prominent than on previous, however, this is likely exaggerated by suboptimal inspiratory volume. There is no effusion or pneumothorax and no ramonita edema or pneumonia. IMPRESSION: Limited inspiratory volume with questionable mild venous congestion but no edema, pneumonia or pleural pathology. Dictated by: Dictated on workstation # [id number]
== END 2018-09-08 04:39 | disposition home or self-care (01) ==
LOC: EDUNIT# 02:23 → ER 02:25
DX: E11.649 Type 2 diabetes mellitus with hypoglycemia without coma (principal); R41.82 Altered mental status, unspecified; I10 Essential (primary) hypertension; E11.51 Type 2 diabetes mellitus with diabetic peripheral angiopathy without gangrene; E11.40 Type 2 diabetes mellitus with diabetic neuropathy, unspecified; G40.909 Epilepsy, unspecified, not intractable, without status epilepticus; Z99.2 Dependence on renal dialysis; Z79.4 Long term (current) use of insulin; Z82.49 Family history of ischemic heart disease and other diseases of the circulatory system
CPT/HCPCS: 36415; 71045; 80048; 82962; 85025

== ENCOUNTER → 2018-10-07 | Outpatient (CLI) | payer MEDICARE | LOC: RAD 16:06 | PROVIDERS: ATTEND Internal Medicine Nephrology | DX: Z53.9 Procedure and treatment not carried out, unspecified reason (principal) ==

== ENCOUNTER → 2018-10-28 | Outpatient (CLI) | payer MEDICARE ==
--- NOTE | 2018-10-28 17:22 | Diagnostic Imaging Report ---
INDICATION: Shoulder pain and neck pain. FINDINGS: A right internal jugular port is noted. Cervical spine alignment appears appropriate. The vertebral body heights appear maintained, and there appears to be preservation of the disc spaces. There appears to be some mild multilevel facet hypertrophy. There is no widening of the predental space or abnormal prevertebral soft tissue thickening evident. IMPRESSION: 1. Mild facet hypertrophy within the cervical spine. Alignment is normal. Vertebral body heights appear maintained. The disc spaces appear preserved. There is no abnormal prevertebral soft tissue thickening. Dictated by: Dictated on workstation # [id number]
== END ==
LOC: RAD 15:47
PROVIDERS: ATTEND Internal Medicine Nephrology
DX: M54.2 Cervicalgia (principal); M25.511 Pain in right shoulder
CPT/HCPCS: 72040

== ENCOUNTER 2019-03-19 19:50 | Emergency (ER) | payer MEDICARE, OTHER ==
[~2019-03-19] VITALS: Ht 170.1 cm; Wt 77.2 kg
--- NOTE | 2019-03-19 20:00 | ED General ---
General Chief Complaint: Glucose Problems Stated Complaint: LOW BLOOD SUGAR Source of Information: Patient, EMS Exam Limitations: No Limitations History of Present Illness Date Seen by Provider: Mar 19, 2019 Time Seen by Provider: 19:57 Initial Comments To ER by EMS with reports of low blood sugar. He was at [employer] this evening when he became confused and diaphoretic. EMS arrived and found his glucose to be 20. They do not carry D50 so they started D10 infusion 500 mL. Upon arrival to ER blood sugar has improved to 101. Patient denies any symptoms, alert, has no complaints. He is a hemodialysis patient Wednesday, on NovoLog and Levemir. Timing/Duration: 1/2 Hour Severity: Mild Associated Systoms: Weakness Allergies and Home Medications Allergies Coded Allergies: No Known Drug Allergies (Unverified , 05/18/15) Home Medications Ascorbate Calcium 500 Mg Tablet, 500 MG PO DAILY, (Reported) Ferrous Sulfate 325 Mg Tablet, 325 MG PO DAILY, (Reported) Insulin Aspart 300 Units/3 Ml Solution, 300 UNITS SQ AC PRN for HYPERGLYCEMIA, (Reported) Sliding scale: 2 units for glucose 140-180 4 units for glucose 181-220 6 units for glucose 221-260 8 units for glucose 261-300 10 units for glucose 301- 350 12 units for glucose 351-400 14 units for glucose over 400 Insulin Glargine,Hum.rec.anlog 100 Unit/1 Ml Insuln.pen, 10 UNIT SQ HS, (Reporte d) Levetiracetam 500 Mg Tablet, 750 MG PO DAILY@1200 Prescribed by: LOI FLEMING on 04/09/17 0819 Metoprolol Succinate 100 Mg Tab.er.24h, 100 MG PO DAILY, (Reported) Patient Home Medication List Home Medication List Reviewed: Yes Review of Systems Review of Systems Constitutional: see HPI, diaphoresis EENTM: see HPI Respiratory: no symptoms reported Cardiovascular: no symptoms reported Genitourinary: no symptoms reported Musculoskeletal: no symptoms reported Skin: no symptoms reported Psychiatric/Neurological: No Symptoms Reported Hematologic/Lymphatic: No Symptoms Reported Past Vvrlpcw-Uxwggq-Tontux Hx Patient Social History 2nd Hand Smoke Exposure: No Recent Hopitalizations: Yes Immunizations Up To Date Tetanus Booster (TDap): Unknown Date of Influenza Vaccine: Feb 04, 2017 Seasonal Allergies Seasonal Allergies: Yes Past Medical History Surgeries: Yes (dialysis catheter placement) Respiratory: No Cardiac: Yes Hypertension, Peripheral Vascular Neurological: Yes Neuropathy, Seizure Disorder Genitourinary: Yes Renal Failure, Dialysis Gastrointestinal: No Musculoskeletal: Yes Endocrine: Yes Diabetes, Insulin dep HEENT: No Cancer: No Psychosocial: No Integumentary: No Blood Disorders: No Adverse Reaction/Blood Tranf: No Family Medical History Alcoholism 19 FATHER Alzheimer's disease 19 FATHER Arthritis 19 FATHER Asthma G8 BROTHER Cardiovascular disease 19 MOTHER Cataracts 19 MOTHER Diabetes mellitus 19 MOTHER Hypertension 19 MOTHER Hypertension Physical Exam Vital Signs Vital Signs - First Documented 03/19/19 19:50 Temp 36.4 Pulse 57 Resp 14 B/P (MAP) 149/83 (105) Pulse Ox 98 Capillary Refill : Height, Weight, BMI Height: 5'8.00" Weight: 169lbs. 0.0oz. 76.042492cb; 24.3 BMI Method:Estimated General Appearance: No Apparent Distress, WD/WN, Other (not actively diaphoretic, blood glucose 101. He is alert smiling and very pleasant gentleman. Clothing is wet from having been diaphoretic) HEENT: PERRL/EOMI, TMs Normal Neck: Full Range of Motion, Normal Inspection Respiratory: No Accessory Muscle Use, No Respiratory Distress Gastrointestinal: Normal Bowel Sounds, Non Tender, Soft Extremity: Normal Capillary Refill, Normal Inspection Neurologic/Psychiatric: Alert, Oriented x3 Skin: Normal Color, Warm/Dry Procedures/Interventions Date of ETT Placement: Mar 30, 2017 Time of ETT Placement: 2053 Progress/Results/Core Measures Suspected Sepsis SIRS Temperature: Pulse: Respiratory Rate: Laboratory Tests 03/19/19 20:45: White Blood Count 8.0 Blood Pressure / Mean: Laboratory Tests 03/19/19 20:45: Creatinine 10.24H, Platelet Count 180, Total Bilirubin 0.4 Results/Orders Lab Results Laboratory Tests Test 03/19/19 19:57 03/19/19 20:45 03/19/19 21:06 Range/Units Glucometer 101 219 H 70-110 MG/DL White Blood Count 8.0 4.3-11.0 10^3/uL Red Blood Count 3.83 L 4.35-5.85 10^6/uL Hemoglobin 10.8 L 13.3-17.7 G/DL Hematocrit 31 L 40-54 % Mean Corpuscular Volume 80 80-99 FL Mean Corpuscular Hemoglobin 28 25-34 PG Mean Corpuscular Hemoglobin Concent 35 32-36 G/DL Red Cell Distribution Width 16.7 H 10.0-14.5 % Platelet Count 180 130-400 10^3/uL Mean Platelet Volume 9.4 7.4-10.4 FL Neutrophils (%) (Auto) 72 42-75 % Lymphocytes (%) (Auto) 17 12-44 % Monocytes (%) (Auto) 9 0-12 % Eosinophils (%) (Auto) 2 0-10 % Basophils (%) (Auto) 0 0-10 % Neutrophils # (Auto) 5.8 1.8-7.8 X 10^3 Lymphocytes # (Auto) 1.3 1.0-4.0 X 10^3 Monocytes # (Auto) 0.7 0.0-1.0 X 10^3 Eosinophils # (Auto) 0.1 0.0-0.3 10^3/uL Basophils # (Auto) 0.0 0.0-0.1 10^3/uL Sodium Level 138 135-145 MMOL/L Potassium Level 5.0 3.6-5.0 MMOL/L Chloride Level 96 L 98-107 MMOL/L Carbon Dioxide Level 25 21-32 MMOL/L Anion Gap 17 H 5-14 MMOL/L Blood Urea Nitrogen 39 H 7-18 MG/DL Creatinine 10.24 H 0.60-1.30 MG/DL Estimat Glomerular Filtration Rate 6 BUN/Creatinine Ratio 4 Glucose Level 184 H 70-105 MG/DL Calcium Level 8.9 8.5-10.1 MG/DL Corrected Calcium 8.5-10.1 MG/DL Total Bilirubin 0.4 0.1-1.0 MG/DL Aspartate Amino Transf (AST/SGOT) 16 5-34 U/L Alanine Aminotransferase (ALT/SGPT) 11 0-55 U/L Alkaline Phosphatase 146 H 40-136 U/L Total Protein 7.6 6.4-8.2 GM/DL Albumin 4.6 H 3.2-4.5 GM/DL My Orders Orders - SUNITHA BRAXTON APRN Accucheck Stat ONCE (03/19/19 19:56) Cbc With Automated Diff (03/19/19 19:56) Comprehensive Metabolic Panel (03/19/19 19:56) Chest 1 View, Ap/Pa Only (03/19/19 19:56) Ekg Tracing (03/19/19 19:56) Continuous Ekg Monitoring (03/19/19 19:56) Accucheck Stat ONCE (03/19/19 20:56) Vital Signs/I&O 03/19/19 19:50 Temp 36.4 Pulse 57 Resp 14 B/P (MAP) 149/83 (105) Pulse Ox 98 Capillary Refill : Diagnostic Imaging Diagonstic Imaging: Xray Comments NAME: ESVIN PATHAK [facility] REC#: [id number] PT STATUS: REG ER : 1965 PHYSICIAN: SUNITHA BRAXTON APRN ADMIT DATE: 03/19/19/ER Draft Date of Exam:03/19/19 CHEST 1 VIEW, AP/PA ONLY INDICATION: Hypoglycemia. TECHNIQUE: Single view chest 8:09 PM. CORRELATION STUDY: 09/08/2018 FINDINGS: Right IJ dialysis catheter tip over the right atrium, stable. Heart size is enlarged. Vasculature is only mildly prominent at follow-up. Lungs appear generally clear and are without significant infiltrate. IMPRESSION: 1. Stable cardiac enlargement without overt failure. Dictated on workstation # [id number] Dict: 03/19/192012 Trans: 03/19/192013 DO [id number] Interpreted by: CHIVO MC DO Electronically signed by: Departure Communication (Admissions) [id number] is scheduled for hemodialysis tomorrow morning. He is not fluid overloaded, in any distress, or with any electrolyte abnormality. This would will be fine to wait until tomorrow morning for dialysis. He ate a meal tray for us, his last sugar check was up to 200. Impression Primary Impression: CKD (chronic kidney disease) requiring chronic dialysis Additional Impression: Hypoglycemia Disposition: HOME, SELF-CARE Condition: Improved Departure-Patient Inst. Decision time for Depature: 21:32 Referrals: [facility] (PCP/Family) Primary Care Physician Patient Instructions: Dialysis and Diet, HYPOGLYCEMIA Add. Discharge Instructions: 1. Return to ER for any concerns, make sure that you get your dialysis tomorrow morning. All discharge instructions reviewed with patient and/or family. Voiced understanding. SUNITHA BRAXTON APRN Mar 19, 2019 20:00
--- NOTE | 2019-03-19 20:15 | Diagnostic Imaging Report ---
INDICATION: Hypoglycemia. TECHNIQUE: Single view chest 8:09 PM. CORRELATION STUDY: 09/08/2018 FINDINGS: Right IJ dialysis catheter tip over the right atrium, stable. Heart size is enlarged. Vasculature is only mildly prominent at follow-up. Lungs appear generally clear and are without significant infiltrate. IMPRESSION: 1. Stable cardiac enlargement without overt failure. Dictated by: Dictated on workstation # [id number]
--- NOTE | 2019-03-19 20:52 | NUR ---
Report received from PRAVEENA Hooks at this time to assume care of pt.
[2019-03-19 21:01] LABS: BASOPHILS % (AUTO) 0 % (0-10); EOSINOPHILS # (AUTO) 0.1 10^3/uL (0.0-0.3); EOSINOPHILS % (AUTO) 2 % (0-10); HEMATOCRIT 31 % (40-54); HEMOGLOBIN 10.8 G/DL (13.3-17.7); LYMPHOCYTES # (AUTO) 1.3 X 10^3 (1.0-4.0); LYMPHOCYTES % (AUTO) 17 % (12-44); MEAN CORPUSCULAR HEMOGLOBIN 28 PG (25-34); MEAN CORPUSCULAR HGB CONC 35 G/DL (32-36); MEAN CORPUSCULAR VOLUME 80 FL (80-99); MEAN PLATELET VOLUME 9.4 FL (7.4-10.4); MONOCYTES # (AUTO) 0.7 X 10^3 (0.0-1.0); MONOCYTES % (AUTO) 9 % (0-12); NEUTROPHILS # (AUTO) 5.8 X 10^3 (1.8-7.8); NEUTROPHILS % (AUTO) 72 % (42-75); PLATELET COUNT 180 10^3/uL (130-400); RED CELL DISTRIBUTION WIDTH 16.7 % (10.0-14.5)
[2019-03-19 21:20] LABS: ALANINE AMINOTRANSFERASE 11 U/L (0-55); ALBUMIN 4.6 GM/DL (3.2-4.5); ALKALINE PHOSPHATASE 146 U/L (40-136); BILIRUBIN,TOTAL 0.4 MG/DL (0.1-1.0); BUN/CREATININE RATIO 4; CALCIUM 8.9 MG/DL (8.5-10.1); CARBON DIOXIDE 25 MMOL/L (21-32); CHLORIDE 96 MMOL/L (98-107); CREATININE SERUM 10.24 MG/DL (0.60-1.30); GFR ESTIMATED 6; GLUCOSE 184 MG/DL (70-105); SODIUM 138 MMOL/L (135-145); TOTAL PROTEIN 7.6 GM/DL (6.4-8.2)
[2019-03-19 21:53] VITALS: BP 135/85
== END 2019-03-19 21:55 | disposition home or self-care (01) ==
LOC: EDUNIT# 19:50 → ER 19:51
DX: E11.22 Type 2 diabetes mellitus with diabetic chronic kidney disease (principal); I12.9 Hypertensive chronic kidney disease with stage 1 through stage 4 chronic kidney disease, or unspecified chronic kidney disease; N18.9 Chronic kidney disease, unspecified; E11.649 Type 2 diabetes mellitus with hypoglycemia without coma; E11.40 Type 2 diabetes mellitus with diabetic neuropathy, unspecified; Z79.4 Long term (current) use of insulin; Z99.2 Dependence on renal dialysis; Z82.49 Family history of ischemic heart disease and other diseases of the circulatory system
CPT/HCPCS: 36415; 71045; 80053; 82962; 85025; 93005

== ENCOUNTER 2019-04-10 05:37 | Outpatient (CLI) | payer MEDICARE, OTHER ==
[~2019-04-10] VITALS: Ht 167.7 cm; Wt 76.8 kg
[~2019-04-10 05:37] MED LIST changes: -METO-395 PO; +MTP100TCR PO
[2019-04-10] MEDS ORDERED: CALC300T4 PO (09:02)
[2019-04-10] MEDS ORDERED: HYDR-3922 PO (09:02)
[2019-04-10] MEDS ORDERED: AMLO10TA7 PO (09:02)
[2019-04-10] MEDS ORDERED: ACHD5005 PO (09:02)
[2019-04-10] MEDS ORDERED: CARV25TA PO (09:02)
[2019-04-10] MEDS ORDERED: INSU100I29 SQ (09:02)
[2019-04-10] MEDS ORDERED: TORS100T4 PO (09:02)
[2019-04-11] MEDS ORDERED: OMEP20TA7 PO (08:22)
== END 2019-04-10 09:05 | disposition home or self-care (01) ==
LOC: PREOP 05:37
PROVIDERS: ATTEND Surgery
DX: Z01.818 Encounter for other preprocedural examination (principal)

== ENCOUNTER 2019-05-17 06:08 | Outpatient (CLI) | payer MEDICARE, OTHER ==
[~2019-05-17] VITALS: Ht 167 cm; Wt 72.0 kg
[~2019-05-17 06:08] MED LIST changes: +ACHD5005 PO; +CALC300T4 PO; +CARV25TA PO; +HYDR-3922 PO; +INSU100I29 SQ; +OMEP20TA7 PO; +TORS100T4 PO
[2019-05-19] MEDS ORDERED: PANT40SU PO (13:12)
== END 2019-05-17 10:54 | disposition home or self-care (01) ==
LOC: PREOP 06:08
PROVIDERS: ATTEND Surgery
DX: Z01.818 Encounter for other preprocedural examination (principal)

== ENCOUNTER → 2019-05-19 | Day surgery (SDC) | payer MEDICARE, OTHER ==
[~2019-05-19] VITALS: Ht 167 cm; Wt 72.0 kg
[~2019-05-19] MED LIST changes: +HURRICAINE EXT TUBE (BENZOCAINE) ONE; +HURRICAINE EXT TUBE (BENZOCAINE) XX PRN; +LABETALOL HCL 20 MG/4 ML VIAL ONE; +LACTATED RINGERS 1,000 ML IV ONE; +LACTATED RINGERS 1,000 ML IV STA; +MIDAZOLAM 2 MG/2 ML (VERSED) VIAL ONE; +PANT40SU PO; +PROPOFOL INJECTION 50 ML IV ONE
[2019-05-19 11:59] VITALS: BP 202/101
--- NOTE | 2019-05-19 12:53 | Progress Note-Pre Operative ---
Pre-Operative Progress Note H&P Reviewed The H&P was reviewed, patient examined and no changes noted. Date Seen by Provider: May 19, 2019 Time Seen by Provider: 12:30 Date H&P Reviewed: May 19, 2019 Time H&P Reviewed: 12:30 Pre-Operative Diagnosis: Anemia, CKD YESSI DYE DO May 19, 2019 12:31
[2019-05-19 13:05] VITALS: BP 191/88
[2019-05-19 13:10] VITALS: BP 208/86
--- NOTE | 2019-05-19 13:12 | Progress Note-Post Operative ---
Post-Operative Progess Note Surgeon (s)/Internal Revenue Agent (s) Surgeon YESSI DYE DO Internal Revenue Agent: NA Pre-Operative Diagnosis Anemia, CKD Post-Operative Diagnosis Colon polyp, Gastric polyps with antral ulceration Procedure & Operative Findings Date of Procedure 05/19/19 Procedure Performed/Findings EGD with biopsy and Colonoscopy with hot biopsy polypectomy Anesthesia Type per LEAD PROCESS ENGINEER Estimated Blood Loss Estimated blood loss (mL): None Specimens/Packing Specimens Removed Biopsy of Antral Polyp Ulcer Hot biopsy Polypectomy of rectal polyp YESSI DYE DO May 19, 2019 13:10
[2019-05-19 13:15] VITALS: BP_SYST 152; BP_SYST 153; BP_DIAS 74; BP_DIAS 75
--- NOTE | 2019-05-19 13:18 | Discharge Inst-Simple/Standard ---
Discharge Inst-Standard Patient Instructions/Follow Up Plan of Care/Instructions/FU: Follow up in 2 weeks Valerie to discuss biopsy results. If anything occurs prior to follow up be seen at that time. Stop Omeprazole and Start on protonix. Activity as Tolerated: Yes Discharge Diet: Regular Diet YESSI DYE DO May 19, 2019 13:17
--- NOTE | 2019-05-19 13:27 | Anesthesia-General Post-Op ---
MAC Patient Condition Mental Status/LOC: Same as Preop Cardiovascular: Satisfactory Nausea/Vomiting: Absent Respiratory: Satisfactory Pain: Controlled Complications: Absent Post Op Complications Complications None Follow Up Care/Instructions Patient Instructions None needed. Anesthesiology Discharge Order Discharge Order Patient is doing well, no complaints, stable vital signs, no apparent adverse anesthesia problems. No complications reported per nursing. KEYLA MYAFIELD CRNA May 19, 2019 13:27
[2019-05-19 13:43] VITALS: BP 189/92
[2019-05-19 13:46] VITALS: BP 189/92
--- NOTE | 2019-05-19 19:54 | OPERATIVE REPORT ---
DATE OF SERVICE: 05/19/2019 PREOPERATIVE DIAGNOSES: Anemia, chronic kidney disease. POSTOPERATIVE DIAGNOSES: Gastric polyps with antral ulceration, rectal polyp. PROCEDURE: EGD with biopsy, colonoscopy with hot biopsy polypectomy. SURGEON: Yessi Padilla DO ANESTHESIA: Per DIESEL ENGINE ERECTOR. ESTIMATED BLOOD LOSS: None. COMPLICATIONS: None. INDICATIONS: The patient is a 53-year-old male with chronic kidney disease and is anemic, has to do EGD and colonoscopy for further evaluation. He understands risks and benefits of procedure and wished to proceed with procedure. Consent was signed in the chart. DESCRIPTION OF PROCEDURE: The patient was taken to the endoscopy suite, placed in left lateral recumbent position. Timeout was performed. Scope was inserted in mouth, down the esophagus, stomach and into the duodenum without difficulty. There were no polyps, masses or ulcerations within the duodenum. Scope was slowly retracted back into the stomach where further insufflated. Antral ulceration with polyp appearance was present. Biopsy of this area was obtained. Scope was retroflexed noting a polyp at the GE junction. No other pathology noted. Scope was returned to its normal position, slowly withdrawn to the distal esophagus, which had normal appearance. No polyps, masses or ulcerations. Scope was slowly retracted back until completely removed. The patient tolerated procedure well without any complications, taken to recovery room in stable condition. Digital rectal exam was performed. There were no palpable polyps, masses or ulcerations. Scope was inserted in the rectum and advanced all the way to cecum with minimal difficulty. Prep was adequate. Scope was then slowly retracted back. There were no polyps, masses or ulcerations within the cecum, ascending, transverse, descending and sigmoid colon. Once in the rectum, small polyp was present, which hot biopsy polypectomy was performed. Scope was then inserted and retracted multiple times not noting any other pathology. Scope was then slowly retracted back and completely removed. The patient tolerated procedure well without any complications, taken to recovery room in stable condition. RECOMMENDATIONS: The patient will need repeat colonoscopy in 5 years. Any issues before that be seen at that time. Further recommendations pending biopsy results. We will continue to follow hemoglobin. Job ID: [id number] DocumentID: [id number] Dictated Date: 05/19/2019 13:11:38 Attorney Lawyer Date: 05/19/2019 19:53:31 Dictated By: YESSI PADILLA DO
--- OUTSIDE RECORDS SUMMARY | 2019-05-23 11:32 | XMS REPORT | Encounter Summary ---
Author Author [facility] Organization [facility] Address Unknown Phone Unavailable Care Team Providers Care Hassock Maker Name Role Phone PCP Unavailable Encounter Details Care Team Description Date Type Department uRperto Damico RN 09/28/2017 Telephone [facility] Kidney and Liver Transplant Program [address] [place] [address], [address] [place] [address] Social History Date Tobacco Use Types Packs/Day Years Used Never Assessed Sex Assigned at Date Recorded Not on file Industry Job Start Date Occupation Not on file Not on file Not on file Travel End Travel History Travel Start No recent travel history available. documented as of this encounter Miscellaneous Notes * Telephone Encounter - Selena Chapa - 09/28/2017 12:56 PM CDT New Episode documented in this encounter Plan of Treatment Not on filedocumented as of this encounter Visit Diagnoses Not on filedocumented in this encounter
--- OUTSIDE RECORDS SUMMARY | 2019-05-23 11:32 | XMS REPORT | Encounter Summary ---
Author Author [facility] Organization [facility] Address Unknown Phone Unavailable Care Team Providers Care Concrete Bucket Loader Name Role Phone PCP Unavailable Encounter Details Care Team Description Date Type Department Lia Claros 08/13/2016 Documentation [facility] Kidney and Liver Transplant Program [address] [place] [address], [address] [place] [address] Social History Date Tobacco Use Types Packs/Day Years Used Never Assessed Sex Assigned at Date Recorded Not on file Industry Job Start Date Occupation Not on file Not on file Not on file Travel End Travel History Travel Start No recent travel history available. documented as of this encounter Progress Notes * Lia Claros - 08/13/2016 9:16 AM CDT New referral patient is uninsured at this time. Said he will apply for [employer] and let our office know when it is active. [facility] will call in one month to check on status. documented in this encounter Plan of Treatment Not on filedocumented as of this encounter Visit Diagnoses Not on filedocumented in this encounter
--- OUTSIDE RECORDS SUMMARY | 2019-05-23 11:32 | XMS REPORT | Encounter Summary ---
Author Author [facility] Organization [facility] Address Unknown Phone Unavailable Care Team Providers Care Broadband Engineer Name Role Phone Khushi Acuna PCP Encounter Details Care Team Description Date Type Department Jackie Pelayo RN 01/19/2018 Documentation [facility] Kidney and Liver Transplant Program [address] [place] [address], [address] [place] [address] Social History Date Tobacco Use Types Packs/Day Years Used Never Assessed Sex Assigned at Date Recorded Not on file Industry Job Start Date Occupation Not on file Not on file Not on file Travel End Travel History Travel Start No recent travel history available. documented as of this encounter Progress Notes * Jackie Pelayo RN - 01/19/2018 7:27 PM PERCUSSION WELDING MACHINE OPERATOR Chart preparation for initial visit. USSION WELDING MACHINE OPERATOR documented in this encounter Plan of Treatment Not on filedocumented as of this encounter Visit Diagnoses Not on filedocumented in this encounter
--- OUTSIDE RECORDS SUMMARY | 2019-05-23 11:32 | XMS REPORT | Encounter Summary ---
Author Author [facility] Organization [facility] Address Unknown Phone Unavailable Care Team Providers Care V Belt Builder Name Role Phone PCP Unavailable Encounter Details Care Team Description Date Type Department Ruperto Damico RN 09/28/2017 Telephone [facility] Kidney and Liver Transplant Program [address] [place] [address], [address] [place], [place] [id number] Social History Date Tobacco Use Types Packs/Day Years Used Never Assessed Sex Assigned at Date Recorded Not on file Industry Job Start Date Occupation Not on file Not on file Not on file Travel End Travel History Travel Start No recent travel history available. documented as of this encounter Miscellaneous Notes * Telephone Encounter - Selena Chapa - 09/28/2017 12:57 PM CDT Left message to try to do an intake documented in this encounter Plan of Treatment Not on filedocumented as of this encounter Visit Diagnoses Not on filedocumented in this encounter
--- OUTSIDE RECORDS SUMMARY | 2019-05-23 11:32 | XMS REPORT | Encounter Summary ---
Author Author [facility] Organization [facility] Address Unknown Phone Unavailable Care Team Providers Care Cattle Dehorner Name Role Phone PCP Unavailable Encounter Details Care Team Description Date Type Department Amrita Guillen MD [address] [facility] [address] [place], [place] [id number] 07/30/2017 Documentation [facility] Kidney and Liver Transplant Program [address] [facility], [address] [place], [place] [id number] Social History Date Tobacco Use Types Packs/Day Years Used Never Assessed Sex Assigned at Date Recorded Not on file Industry Job Start Date Occupation Not on file Not on file Not on file Travel End Travel History Travel Start No recent travel history available. documented as of this encounter Plan of Treatment Not on filedocumented as of this encounter Visit Diagnoses Not on filedocumented in this encounter
--- OUTSIDE RECORDS SUMMARY | 2019-05-23 11:32 | XMS REPORT | Encounter Summary ---
Author Author [facility] Organization [facility] Address Unknown Phone Unavailable Care Team Providers Care Mortgage Loan Processor Name Role Phone PCP Unavailable Encounter Details Care Team Description Date Type Department Ruperto Damico RN 10/12/2017 Telephone [facility] Kidney and Liver Transplant Program [address] [place] [address], [address] [place] [address] Social History Date Tobacco Use Types Packs/Day Years Used Never Assessed Sex Assigned at Date Recorded Not on file Industry Job Start Date Occupation Not on file Not on file Not on file Travel End Travel History Travel Start No recent travel history available. documented as of this encounter Miscellaneous Notes * Telephone Encounter - eSlena Chapa - 10/12/2017 10:52 AM CDT Mailing a no contact letter documented in this encounter Plan of Treatment Not on filedocumented as of this encounter Visit Diagnoses Not on filedocumented in this encounter
--- OUTSIDE RECORDS SUMMARY | 2019-05-23 11:32 | XMS REPORT | Clinical Summary ---
Author Author [facility] Organization [facility] Address Unknown Phone Unavailable Care Team Providers Care Can Pusher Name Role Phone Khushi Acuna PCP Allergies No Known Allergies Medications End Date Status Medication Sig Dispensed Refills Start Date Active calcium carbonate (TUMS) Chew 2 0 200 mg calcium (500 mg) tablets 3 chewable tablet (three) times a day. Take an additional 4 tablets at night. Active levETIRAcetam (KEPPRA) Take 750 mg 0 750 MG tablet by mouth daily. At noon. Active insulin detemir U-100 Inject 10 0 (LEVEMIR) 100 unit/mL Units under injection the skin nightly. Active metOLazone (ZAROXOLYN) Take 2.5 mg 0 2.5 MG tablet by mouth 2 (two) times a day. Active metoprolol tartrate Take 100 mg 0 (LOPRESSOR) 100 MG tablet by mouth 2 (two) times a day. Active ergocalciferol (VITAMIN Take 50,000 0 D2) 50,000 unit capsule Units by mouth weekly. Active Problems Not on file Social History Date Tobacco Use Types Packs/Day Years Used Never Assessed Sex Assigned at Date Recorded Not on file Industry Job Start Date Occupation Not on file Not on file Not on file Travel End Travel History Travel Start No recent travel history available. Last Filed Vital Signs Not on file Plan of Treatment Health Maintenance Due Date Last Done Comments Medicare Annual Wellness 1965 Td # 1965 Pneumococcal Vaccine: 07/10/1971 Pediatrics (0 to 5 Years) and At-Risk Patients (6 to 64 Years) (1 of 1 - PPSV23) Colorectal Screening via 07/10/2015 Colonoscopy Zoster Vaccine# (1 of 2) 07/10/2015 Influenza Vaccine (Season 01/14/2020 Ended) Results Not on filefrom Last 3 Months Insurance Type Payer Benefit Subscriber ID Effective Phone Address Plan / Dates Group Medicare MEDICARE MEDICARE xxxxxxxxxx 2017-P [place] B [place], [place] HUMANA HUMANA xxxxxxxxx 2017-P MEDICARE [place] SUPPLEMENT Indemnity TRANSPLANTS-CASE RATES PB xxxxxxxxxx 19 18- PRETRANSPL Present ANT Advance Directives For more information, please contact: [phone] 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
--- OUTSIDE RECORDS SUMMARY | 2019-05-23 11:32 | XMS REPORT | Encounter Summary ---
Author Author [facility] Organization [facility] Address Unknown Phone Unavailable Care Team Providers Care Executive Vice President And Chief Financial Officer Name Role Phone PCP Unavailable Encounter Details Care Team Description Date Type Department Lia Claros 10/14/2017 Documentation [facility] Transplant Program [address] [place] [address], [address] [place] [address] Social History Date Tobacco Use Types Packs/Day Years Used Never Assessed Sex Assigned at Date Recorded Not on file Industry Job Start Date Occupation Not on file Not on file Not on file Travel End Travel History Travel Start No recent travel history available. documented as of this encounter Progress Notes * Lia Claros - 10/14/2017 3:01 PM CDT Transplant insurance benefits have been verified using the insurance smartform. documented in this encounter Plan of Treatment Not on filedocumented as of this encounter Visit Diagnoses Not on filedocumented in this encounter
--- OUTSIDE RECORDS SUMMARY | 2019-05-23 11:32 | XMS REPORT | Encounter Summary ---
Author Author [facility] Organization [facility] Address Unknown Phone Unavailable Care Team Providers Care Strip Winder Name Role Phone PCP Unavailable Encounter Details Care Team Description Date Type Department Mari Mondragon RN 07/28/2016 Telephone [facility]ney and Liver Transplant Program [address] [place] [address], [address] [place] [address] Social History Date Tobacco Use Types Packs/Day Years Used Never Assessed Sex Assigned at Date Recorded Not on file Industry Job Start Date Occupation Not on file Not on file Not on file Travel End Travel History Travel Start No recent travel history available. documented as of this encounter Miscellaneous Notes * Telephone Encounter - Nayeli Jaffe - 07/28/2016 8:51 AM CDT Called pt to discuss referral. documented in this encounter Plan of Treatment Not on filedocumented as of this encounter Visit Diagnoses Not on filedocumented in this encounter
--- OUTSIDE RECORDS SUMMARY | 2019-05-23 11:32 | XMS REPORT | Encounter Summary ---
Author Author [facility] Organization [facility] Address Unknown Phone Unavailable Care Team Providers Care Precision Farming Coordinator Name Role Phone PCP Unavailable Encounter Details Care Team Description Date Type Department Ruperto Damico RN 07/30/2016 Telephone [facility] Kidney and Liver Transplant Program [address] [place] [address], [address] [place] [address] Social History Date Tobacco Use Types Packs/Day Years Used Never Assessed Sex Assigned at Date Recorded Not on file Industry Job Start Date Occupation Not on file Not on file Not on file Travel End Travel History Travel Start No recent travel history available. documented as of this encounter Miscellaneous Notes * Telephone Encounter - Jose Wallis - 07/30/2016 1:00 PM CDT Completed intake. Patient is working on getting Medicaid insurance, but currentl y is uninsured. He will contact us when Medicaid goes through. documented in this encounter Plan of Treatment Not on filedocumented as of this encounter Visit Diagnoses Not on filedocumented in this encounter
--- OUTSIDE RECORDS SUMMARY | 2019-05-23 11:32 | XMS REPORT | Encounter Summary ---
Author Author [facility] Organization [facility] Address Unknown Phone Unavailable Care Team Providers Care Machine Stuffer Automatic Name Role Phone PCP Unavailable Encounter Details Care Team Description Date Type Department Ruperto Damico RN 10/12/2017 Telephone [facility] Kidney and Liver Transplant Program [address] [place] [address], [address] [place] [address] Social History Date Tobacco Use Types Packs/Day Years Used Never Assessed Sex Assigned at Date Recorded Not on file Industry Job Start Date Occupation Not on file Not on file Not on file Travel End Travel History Travel Start No recent travel history available. documented as of this encounter Miscellaneous Notes * Telephone Encounter - Selena Chapa - 10/12/2017 10:51 AM CDT Left message to attempt intake. Will be mailing a letter out today. documented in this encounter Plan of Treatment Not on filedocumented as of this encounter Visit Diagnoses Not on filedocumented in this encounter
--- OUTSIDE RECORDS SUMMARY | 2019-05-23 11:32 | XMS REPORT | Encounter Summary ---
Author Author [facility] Organization [facility] Address Unknown Phone Unavailable Care Team Providers Care Cable Installer Repairer Helper Name Role Phone PCP Unavailable Encounter Details Care Team Description Date Type Department Ruperto Damico RN 10/04/2017 Telephone [facility] Kidney and Liver Transplant Program [address] [place] [address], [address] [place] [address] Social History Date Tobacco Use Types Packs/Day Years Used Never Assessed Sex Assigned at Date Recorded Not on file Industry Job Start Date Occupation Not on file Not on file Not on file Travel End Travel History Travel Start No recent travel history available. documented as of this encounter Miscellaneous Notes * Telephone Encounter - Selena Chapa - 10/04/2017 11:09 AM CDT Left message for intake documented in this encounter Plan of Treatment Not on filedocumented as of this encounter Visit Diagnoses Not on filedocumented in this encounter
--- OUTSIDE RECORDS SUMMARY | 2019-05-23 11:32 | XMS REPORT | Encounter Summary ---
Author Author [facility] Organization [facility] Address Unknown Phone Unavailable Care Team Providers Care Trap Puller Name Role Phone PCP Unavailable Encounter Details Care Team Description Date Type Department Ruperto Damico RN 10/08/2017 Telephone [facility] Kidney and Liver Transplant Program [address] [place] [address], [address] [place] [address] Social History Date Tobacco Use Types Packs/Day Years Used Never Assessed Sex Assigned at Date Recorded Not on file Industry Job Start Date Occupation Not on file Not on file Not on file Travel End Travel History Travel Start No recent travel history available. documented as of this encounter Miscellaneous Notes * Telephone Encounter - Selena Chapa - 10/08/2017 11:28 AM CDT Left message trying to do an intake documented in this encounter Plan of Treatment Not on filedocumented as of this encounter Visit Diagnoses Not on filedocumented in this encounter
--- OUTSIDE RECORDS SUMMARY | 2019-05-23 11:33 | XMS REPORT ---
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.1 Active 777743784 Problem Charcot foot due to diabetes mellitus E11.610 Active 06647921 Problem Charcot ankle M14.679 Active 284473 008 Problem Type II or unspecified type diabetes mellitus with neurological manifestations, not stated as uncontrolled E11.49 Active 09764409 Problem History of hypothyroidism Z86.39 Acti ve 853256139 Problem Type 2 diabetes mellitus without complications E11 .9 Active 144396125 Problem Chronic renal failure, unspecified stage N18.9 Active 73136879 Problem snf current use of insulin Z79.4 Active 358701533 Problem Essential hypertension I10 Active 77520040 Problem Type 2 diabetes mellitus with hyperglycemia E11.65 Active 93772278 Problem Type 2 diabetes mellitus wit h diabetic chronic kidney disease, 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 Active 790039 003 Problem Difficulty walking R26.2 Active 7 11121512 Problem 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.2 A ctive 591590841 Problem End stage renal disease N18.6 Active 575824501 Problem Mixed hyperlipidemia E78.2 Active 318695509 ALLERGIES No Information ENCOUNTERS Encounter Location Date Diagnosis [place] [address] [facility] [id number] [address], [place] [address] Sep, Type 2 diabetes mellitus wit h hyperglycemia E11.65 ; Essential hypertension I10 ; Chronic renal failure, unspecified stage N18.9 and Mixed hyperlipidemia E78.2 [facility] [address] [facility] [id number] [address] [place] [address] Aug, [facility] [address] [facility] [id number] [address] [place] [address] Jun, [facility] [address] [facility] [id number] [address] [place] [address] Mar, Essential hypertension I10 ; 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 ; Type 2 diabetes mellitus with hyperglycemia E11.65 ; 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.2 and Mixed hyperlipidemia E78.2 [facility] [address] [facility] [id number] [address] [place] [address] Feb, [facility] [address] [facility] [id number] [address] [place] [address] Feb, Type II or unspecified type diabetes mellitus with neurological manifestations, not stated as uncontrolled E11.49 ; Cough R05 ; Essential hypertension I10 ; Hyperglycemia R73.9 and Hematuria, unspecified type R31.9 [facility] [address] [facility] [id number] [address] [place] [address] Jan, HTN (hypertension) I10 ; Typ e 2 diabetes mellitus with diabetic chronic kidney disease, 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 and 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.2 [facility] [address] [facility] [id number] [address] [place] [address] Jan, [facility] [address] [facility] [id number] [address] [place] [address] Oct, Type 2 diabetes mellitus wit hout complications E11.9 [facility] [address] [facility] [id number] [address] [place] [address] July, Mixed hyperlipidemia E78.2 [facility] [address] [facility] [id number] [address] [place] [address] July, Type II or unspecified type diabetes mellitus with neurological manifestations, not stated as uncontrolled E11.49 ; Hyperglycemia R73.9 ; 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.2 and End stage renal disease N18.6 [facility] [address] [place] [id number] [address] [place] [address] Jun, [facility] [address] [address] Apr, Type 2 diabetes mellitus wit h diabetic chronic kidney disease, 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 and Seizures R56.9 [place] [address] [address] Apr, Difficulty walking R26.2 [facility] [address] [address] Mar, Hyperglycemia R73.9 and [place] roenteritis K52.9 [place] [address] [address] July, Chronic renal failure, unspe cified stage N18.9 [place] [address] [address] Jun, [place] [address] [address] Jun, Chronic renal failure, unspe cified stage N18.9 [place] [address] [place] [id number] [address] [place] [address] Jun, Chronic renal failure, unspe cified stage N18.9 and Leg pain, diffuse, unspecified laterality M79.606 [place] [address] [place] [id number] [address] [place] [address] May, [place] [address] [place] [id number] [address] [place] [address] May, [facility] [address] [address] May, [place] [address] [address] May, Chronic renal failure, unspe cified stage N18.9 [place] [address] [place] [id number] [address] [place] [address] Apr, Chronic renal failure, unspe cified stage N18.9 [place] [address] [facility] [id number] [address] [place] [address] Mar, [place] [address] [place] [id number] [address] [place] [phone] Mar, Kidney dysfunction N28.9 ; T ype 2 diabetes mellitus with diabetic chronic kidney disease, 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 ; Essential hypertension I10 ; Charcot ankle M14.679 and Chronic renal failure, unspecified stage N18.9 [place] [address] [place] [id number] [address] [place] [address] Dec, Kidney dysfunction N28.9 [place] [address] [place] [id number] [address] [place] [phone] Nov, Type 2 diabetes mellitus wit hout complications E11.9 ; Essential hypertension I10 ; Charcot ankle M14.679 ; History of hypothyroidism Z86.39 and History of anemia Z86.2 [place] [address] [facility] [id number] [address] [place] [address] Oct, Type 2 diabetes mellitus wit h diabetic chronic kidney disease, 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 [place] [address] [place] [id number] [address] [place] [address] Oct, Onychocryptosis L60.0 ; Linda cot ankle M14.679 ; Pes planus M21.40 and Type 2 diabetes mellitus with diabetic chronic kidney disease, 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 [place] [address] [facility] [id number] [address] [place] [address] Sep, [place] [address] [place] [id number] [address] [place] [address] Sep, [place] [address] [place] [id number] [address] [place] [address] Aug, [place] [address] [place] [id number] [place] [address] 09 Aug, 2015 Type 2 diabetes mellitus wit h diabetic chronic kidney disease, 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 ; Essential hypertension I10 ; Charcot ankle M14.679 ; History of hypothyroidism Z86.39 and History of anemia Z86.2 [place] [address] [address] 05 May, 2015 Acute kidney injury N17.9 ; Essential hypertension I10 and Type 2 diabetes mellitus with diabetic chronic kidney disease, 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 [place] [address] [address] 22 Mar, 2015 Foot pain M79.673 ; Charcot ankle M14.679 and Pes planus M21.40 [place] [address] [address] 04 Feb, 2015 Left foot pain M79.672 ; Vera rcot ankle M14.679 and Type II or unspecified type diabetes mellitus with neurological manifestations, not stated as uncontrolled E11.49 [place] [address] [address] 15 Dec, 2014 Hypoglycemia, unspecified E1 6.2 [place] [address] [address] 14 Dec, 2014 Left foot pain M79.672 [place] [address] [address] 13 Dec, 2014 Pain in left foot M79.672 ; Other specified soft tissue disorders M79.89 and Type 2 diabetes mellitus with diabetic neuropathy E11.40 [place] [address] [address] 14 Jun, 2014 [place] [address] [id number] Jun, [place] [address] [id number] 16 May, 2014 [facility] [address] [id number] [address] [place] [address], [place] [address] May, [facility] [address] [id number] [address] [place] [address], [place] [address] Apr, [facility] [address] [id number] [address] [place] [address], [place] [address] Apr, [facility] [address] [id number] [address] [place] [address], [place] [address] Apr, [facility] [address] [id number] [address] [place] [address], [place] [address] Apr, [facility] [address] [id number] [address] [place] [address], [place] [address] Mar, [facility] [address] [id number] [address] [place] [address], [place] [address] Mar, [facility] [address] [id number] [address] [place] [address], [place] [address] Feb, [facility] [address] [id number] [address] [place] [address], [place] [address] Feb, [facility] [address] [id number] [address] [place] [address], [place] [address] Feb, [facility] [address] [id number] [address] [place] [address], [place] [address] Feb, [facility] [address] [id number] [address] [place] [address], [place] [address] Oct, [facility] [address] [id number] [address] [place] [address], [place] [address] Oct, [facility] [address] [id number] [address] [place] [address], [place] [address] Oct, [facility] [address] [id number] [address] [place] [address], [place] [address] Oct, [facility] [address] [id number] [address] [place] [address], [place] [address] Oct, [facility] [address] [id number] [address] [place] [address], [place] [address] Oct, [facility] [address] [id number] [address] [place] [address], [place] [address] Oct, [facility] [address] [id number] [address] [place] [address], [place] [address] Oct, [facility] [address] [id number] [address] [place] [address], [place] [address] Aug, [facility] [address] [id number] [address] [place] [address], [place] [address] Aug, [facility] [address] [id number] [address] [place] [address], [place] [address] Apr, [facility] [address] [id number] [address] [place] [address], [place] [address] Apr, [facility] [address] [id number] [address] [place] [address], [place] [address] Apr, [facility] [address] [id number] [address] [place] [address], [place] [address] Apr, [facility] [address] [id number] [address] [place] [address], [place] [address] Apr, [facility] [address] [id number] [address] [place] [address], [place] [address] Apr, [facility] [address] [id number] [address] [place] [address], [place] [address] Apr, [facility] [address] [id number] [address] [place] [address], [place] [address] Apr, [facility] [address] [id number] [address] [place] [address], [place] [address] Mar, [facility] [address] [id number] [address] [place] [address], [place] [address] Mar, [facility] [address] [id number] [address] [place] [address] Mar, [facility] [address] [id number] [address] [place] [address] Mar, [facility] [address] [id number] [address] [place] [address] Mar, [facility] [address] [id number] [address] [place] [address] Mar, [facility] [address] [id number] [address] [place] [address] Mar, [facility] [address] [id number] [address] [place] [address] Mar, [facility] [address] [id number] [address] [place] [address] Mar, [facility] [address] [id number] [address] [place] [phone] Mar, [facility] [address] [id number] [address] [place] [address] Mar, [facility] [address] [id number] [address] [place] [phone] Mar, [facility] [address] [id number] [address] [place] [phone] Feb, [facility] [address] [id number] [address] [place] [phone] Feb, [facility] [address] [id number] [address] [place] [address] Feb, [facility] [address] [id number] [address] [place] [phone] Feb, IMMUNIZATIONS No Known Immunizations SOCIAL HISTORY Never Assessed REASON FOR VISIT PLAN OF CARE VITAL SIGNS MEDICATIONS No Known Medications RESULTS No Results PROCEDURES No Known procedures INSTRUCTIONS MEDICATIONS ADMINISTERED No Known Medications MEDICAL (GENERAL) HISTORY Type Description Date Medical History diabetes Type II Medical History hypertension Medical History Charcot foot due to diabetes mellitus Medical History kidney failure with dialysis Medical History anemia secondary to renal failure Surgical History Dialysis shunt Hospitalization History ER for low blood sugar 05/28
--- OUTSIDE RECORDS SUMMARY | 2019-05-23 11:33 | XMS REPORT | Clinical Summary ---
Author Author [facility] Organization [facility] Address Unknown Phone Unavailable Care Team Providers Care Brakeshoe Repairer Name Role Phone No Pcp, Na PCP Unavailable Source Comments Some departments are not documenting in the electronic medical record. If you d o not see the information that you expected, contact Release of Information in [facility] Information Management department at [phone] for further assistan ce in locating additional records.[facility] Allergies No Known Allergies Medications End Date Status Medication Sig Dispensed Refills Start Date Active amLODIPine (NORVASC) 10 Take 10 mg by 0 mg tablet mouth daily. Active insulin glargine (LANTUS Inject 10 0 SOLOSTAR, BASAGLAR) 100 Units under unit/mL (3 mL) injection the skin at PEN bedtime daily. Active metoprolol XL (TOPROL XL) Take 100 mg 0 100 mg extended release by mouth tablet daily. Active ascorbic acid (VITAMIN C) Take 500 mg 0 500 mg tablet by mouth daily. Active ferrous sulfate (FEOSOL, Take 325 mg 0 FEROSUL) 325 mg (65 mg by mouth iron) tablet daily. Take on an empty stomach at least 1 hour before or 2 hours after food. Active levETIRAcetam (KEPPRA) Take 1 tablet 0 01 750 mg tablet by mouth 8 daily. Give at 1200 on non-HD days (//Wed/Wed ). Then on HD days (//) give immediately after dialysis Active Problems Problem Noted Date Stage 5 chronic kidney disease on chronic dialysis 0 03/31/2017 Type 2 diabetes mellitus with hyperglycemia, with jimmy g-term current use of 03/31/2017 insulin HTN (hypertension) 03/31/2017 PVD (peripheral vascular disease) 03/31/2017 Diabetic Charcot foot 03/31/2017 Anemia in chronic kidney disease, on chronic dialysis 03/31/2017 Social History Date Tobacco Use Types Packs/Day Years Used Never Smoker Smokeless Tobacco: Never Used Sex Assigned at Date Recorded Not on file Industry Job Start Date Occupation Not on file Not on file Not on file Travel End Travel History Travel Start No recent travel history available. Last Filed Vital Signs Reading Time Taken Comments Vital Sign 136/81 04/05/2017 6:45 PM STAGE DRIVER Blood Pressure 74 04/05/2017 6:45 PM STAGE DRIVER Pulse 36.7 C (98 F) 04/05/2017 6:45 PM STAGE DRIVER Temperature - - Respiratory Rate 100% 04/05/2017 6:45 PM STAGE DRIVER Oxygen Saturation - - Inhaled Oxygen Concentration 73.8 kg (162 lb 11.2 oz) 04/05/2017 1:43 PM STAGE DRIVER Weight 172.7 cm (5' 8") 04/04/2017 4:59 PM STAGE DRIVER Height 24.74 04/04/2017 4:59 PM STAGE DRIVER Body Mass Index Plan of Treatment Health Maintenance Due Date Last Done Comments MEDICARE ANNUAL WELLNESS 1965 VISIT DTAP/TDAP VACCINES (1 - 1976 Tdap) HIV SCREENING 1980 PHYSICAL (COMPREHENSIVE) 07/10/1983 EXAM COLORECTAL CANCER 07/10/2015 SCREENING SHINGLES RECOMBINANT 07/10/2015 VACCINE (1 of 2) INFLUENZA VACCINE 10/13/2018 Results Not on filefrom Last 3 Months Insurance Type Payer Benefit Subscriber ID Effective Phone Address Plan / Dates Group Medicare MEDICARE MEDICARE xxxxxxxxxx [id number] PART A AND resent [id number] Advance Directives Patient Ambulance Attendant Explanation Type Date Recorded Advance 04/05/2017 2:46 PM Directive/DPOA Date Inactivated Comments Code Status Date Activated 04/05/2017 11:05 PM Full Code 03/31/2017 2:18 AM Provider has discussed Code Status No, more discussi on w/Patient or Family? needed
--- OUTSIDE RECORDS SUMMARY | 2019-05-23 11:33 | XMS REPORT ---
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 Active 2903001 Problem Type II or unspecified type diabetes mellitus with neurological manifestations, not stated as uncontrolled E11.49 Active 62949148 Problem Anyrytw-Nzznb-Mprmc disease-like deformity of foot 356.1 Active 338278355 Problem Type 2 diabetes mellitus wit h diabetic chronic kidney disease, 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 Active 459879 003 Problem Charcot ankle M14.679 Active 890252 008 Problem Type 2 diabetes mellitus without complications E11 .9 Active 276577148 Problem Chronic renal failure, unspecified stage N18.9 Active 25082961 Problem Difficulty walking R26.2 Active 7 83806731 Problem snf current use of insulin Z79.4 Active 765712356 Problem History of hypothyroidism Z86.39 Acti ve 319727079 Problem Hypoglycemia E16.2 Active 9703258 03 Problem Essential hypertension I10 Active 64406127 Problem 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.2 A ctive 183304950 Problem End stage renal disease N18.6 Active 258223203 Problem Mixed hyperlipidemia E78.2 Active 503208072 Problem Type 2 diabetes mellitus with hyperglycemia E11.65 Active 05401120 ALLERGIES No Information ENCOUNTERS Encounter Location Date Diagnosis [facility] [address] [id number] [place] [address] Jun, [facility] [address] [id number] [place] [address] Mar, Type 2 diabetes mellitus with diabetic c hronic kidney disease, 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 ; Essential hypertension I10 ; Charcot ankle M14.679 ; Hyperglycemia R73.9 ; Hypoglycemia E16.2 and 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.2 [place] [address] [address] Mar, Type 2 diabetes mellitus with diabetic c hronic kidney disease, 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 ; Type 2 diabetes mellitus with hyperglycemia E11.65 ; 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.2 and Mixed hyperlipidemia E78.2 [place] [address] [address] Feb, [place] [address] [address] Feb, Type II or unspecified type diabetes deborah litus with neurological manifestations, not stated as uncontrolled E11.49 ; Cough R05 ; Essential hypertension I10 ; Hyperglycemia R73.9 and Hematuria, unspecified type R31.9 [facility] [place] [address] [address] [place] [id number] [place] [address] Jan, HTN (hypertension) I10 ; Typ e 2 diabetes mellitus with diabetic chronic kidney disease, 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 and 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.2 [place] [address] [address] Jan, [facility] [address] [address] Oct, Type 2 diabetes mellitus without complic ations E11.9 [facility] [address] [address] July, Mixed hyperlipidemia E78.2 [place] [address] [address] July, Type II or unspecified type diabetes deborah litus with neurological manifestations, not stated as uncontrolled E11.49 ; Hyperglycemia R73.9 ; 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.2 and End stage renal disease N18.6 [place] [address] [address] Jun, [place] [address] [address] Apr, Type 2 diabetes mellitus with diabetic c hronic kidney disease, 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 and Seizures R56.9 [facility] [address] [address] 13 Apr, 2017 Difficulty walking R26.[address] [facility] [address] [facility] [id number] [address] [place] [address] Mar, Hyperglycemia R73.9 and Zion roenteritis K52.9 [place] [address] [address] July, Chronic renal failure, unspecified stage N18.9 [facility] [address] [address] Jun, [place] [address] [address] Jun, Chronic renal failure, unspecified stage N18.9 [place] [address] [address] Jun, Chronic renal failure, unspecified stage N18.9 and Leg pain, diffuse, unspecified laterality M79.606 [place] [address] [address] May, [place] [address] [address] May, [facility] [address] [facility] [id number] [address] [place] [address] May, [place] [address] [address] May, Chronic renal failure, unspecified stage N18.9 [place] [address] [address] Apr, Chronic renal failure, unspecified stage N18.9 [place] [address] [address] Mar, [place] [address] [address] Mar, Kidney dysfunction N28.9 ; Type 2 diabet es mellitus with diabetic chronic kidney disease, 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 ; Essential hypertension I10 ; Charcot ankle M14.679 and Chronic renal failure, unspecified stage N18.9 [place] [address] [address] Dec, Kidney dysfunction N28.9 [place] [address] [address] Nov, Type 2 diabetes mellitus without complic ations E11.9 ; Essential hypertension I10 ; Charcot ankle M14.679 ; History of hypothyroidism Z86.39 and History of anemia Z86.2 [place] [address] [address] Oct, Type 2 diabetes mellitus with diabetic c hronic kidney disease, 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 [place] [address] [address] Oct, Onychocryptosis L60.0 ; Charcot ankle M1 4.679 ; Pes planus M21.40 and Type 2 diabetes mellitus with diabetic chronic kidney disease, 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 [place] [address] [address] Sep, [place] [address] [address] Sep, [place] [address] [address] Aug, [place] [address] [address] Aug, Type 2 diabetes mellitus with diabetic c hronic kidney disease, 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 ; Essential hypertension I10 ; Charcot ankle M14.679 ; History of hypothyroidism Z86.39 and History of anemia Z86.[address] [address] May, Acute kidney injury N17.9 ; Essential hy pertension I10 and Type 2 diabetes mellitus with diabetic chronic kidney disease, 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 [place] [address] [address] Mar, Foot pain M79.673 ; Charcot ankle M14.67 9 and Pes planus M21.40 [place] [address] [address] Feb, Left foot pain M79.672 ; Charcot ankle M 14.679 and Type II or unspecified type diabetes mellitus with neurological manifestations, not stated as uncontrolled E11.49 [place] [address] [address] Dec, Hypoglycemia, unspecified E16.[address] [address] Dec, Left foot pain M79.[address] [address] Dec, Pain in left foot M79.672 ; Other specif ied soft tissue disorders M79.89 and Type 2 diabetes mellitus with diabetic neuropathy E11.40 [facility] [address] [id number] [place] [address] 14 Jun, 2014 [facility] [address] [id number] [place] [address] Jun, [facility] [address] [id number] [place] [address] May, [facility] [address] [id number] [place] [address] May, [facility] [address] [id number] [place] [address] Apr, [facility] [address] [id number] [place] [address] Apr, [facility] [address] [place] [id number] [place] [address] Apr, [facility] [address] [id number] [place] [address] Apr, [facility] [address] [id number] [place] [address] Mar, [facility] [address] [place] [id number] [place] [address] Mar, [facility] [address] [id number] [place] [address] Feb, [facility] [address] [place] [id number] [place] [address] Feb, [facility] [address] [id number] [place] [address] Feb, [facility] [address] [place] [id number] [place] [address] Feb, [facility] [address] [id number] [place] [address] Oct, [facility] [address] [place] [id number] [place] [address] Oct, [facility] [address] [id number] [place] [address] Oct, [facility] [address] [id number] [place] [address] Oct, [facility] [address] [id number] [place] [address] Oct, [facility] [address] [id number] [place] [address] Oct, [facility] [address] [id number] [place] [address] Oct, [facility] [address] [id number] [place] [address] Oct, [facility] [address] [id number] [place] [address] Aug, [facility] [address] [id number] [place] [address] Aug, [facility] [address] [id number] [place] [address] Apr, [facility] [address] [id number] [place] [address] Apr, [facility] [address] [id number] [place] [address] Apr, [facility] [address] [id number] [place] [address] Apr, [facility] [address] [id number] [place] [address] Apr, [facility] [address] [id number] [place] [address] Apr, [facility] [address] [id number] [place] [address] Apr, [facility] [address] [id number] [place] [address] Apr, [facility] [address] [place] [id number] [place] [address] Mar, [facility] [address] [place] [id number] [place] [address] Mar, [facility] [address] [place] [id number] [place] [address] Mar, [facility] [address] [place] [id number] [place] [address] Mar, [facility] [address] [place] [id number] [place] [address] Mar, [facility] [address] [place] [id number] [place] [address] Mar, [facility] [address] [place] [id number] [place] [address] Mar, [facility] [address] [place] [id number] [place] [address] Mar, [facility] [address] [place] [id number] [place] [address] Mar, [facility] [address] [place] [id number] [place] [address] Mar, [facility] [address] [place] [id number] [place] [address] Mar, [facility] [address] [place] [id number] [place] [address] Mar, [facility] [address] [place] [id number] [place] [address] Feb, [facility] [address] [place] [id number] [place] [address] Feb, [facility] [address] [place] [id number] [place] [address] Feb, [facility] [address] [place] [id number] [place] [address] Feb, IMMUNIZATIONS No Known Immunizations SOCIAL HISTORY Never Assessed REASON FOR VISIT PLAN OF CARE VITAL SIGNS MEDICATIONS Unknown [...]
--- OUTSIDE RECORDS SUMMARY | 2019-05-23 11:33 | XMS REPORT ---
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 Active 3037151 Problem Type II or unspecified type diabetes mellitus with neurological manifestations, not stated as uncontrolled E11.49 Active 41364281 Problem Dskfsqy-Fasld-Hvxho disease-like deformity of foot 356.1 Active 253483434 Problem Type 2 diabetes mellitus wit h diabetic chronic kidney disease, 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 Active 326805 003 Problem Charcot ankle M14.679 Active 911434 008 Problem Type 2 diabetes mellitus without complications E11 .9 Active 204507349 Problem Chronic renal failure, unspecified stage N18.9 Active 71356778 Problem Difficulty walking R26.2 Active 7 81913352 Problem 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 Active 412608355 Problem History of hypothyroidism Z86.39 Acti ve 766296722 Problem Hypoglycemia E16.2 Active 2538226 03 Problem Essential hypertension I10 Active 66442731 Problem 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.2 A ctive 147652598 Problem End stage renal disease N18.6 Active 640775333 Problem Mixed hyperlipidemia E78.2 Active 406737066 Problem Type 2 diabetes mellitus with hyperglycemia E11.65 Active 26195013 ALLERGIES No Information ENCOUNTERS Encounter Location Date Diagnosis [facility] [address] [id number] [place] [address] Jun, [facility] [address] [id number] [place] [address] Mar, Type 2 diabetes mellitus with diabetic c hronic kidney disease, 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 ; Essential hypertension I10 ; Charcot ankle M14.679 ; Hyperglycemia R73.9 ; Hypoglycemia E16.2 and 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.2 [place] [address] [address] Mar, Type 2 diabetes mellitus with diabetic c hronic kidney disease, 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 [facility] [address] [place] [id number] [address] [place] [address] Jan, Bronchitis J40 [place] [address] [address] Sep, Type 2 diabetes mellitus with hyperglyce gavi E11.65 ; Essential hypertension I10 ; Chronic renal failure, unspecified stage N18.9 and Mixed hyperlipidemia E78.2 [place] [address] [address] Aug, [place] [address] [address] Jun, [place] [address] [address] Mar, Essential hypertension I10 ; 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 ; Type 2 diabetes mellitus with hyperglycemia E11.65 ; 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.2 and Mixed hyperlipidemia E78.2 [place] [address] [address] Feb, [place] [address] [address] Feb, Type II or unspecified type diabetes deborah litus with neurological manifestations, not stated as uncontrolled E11.49 ; Cough R05 ; Essential hypertension I10 ; Hyperglycemia R73.9 and Hematuria, unspecified type R31.9 [facility] [address] [facility] [id number] [address] [place] [address] Jan, HTN (hypertension) I10 ; Typ e 2 diabetes mellitus with diabetic chronic kidney disease, 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 and 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.2 [place] [address] [address] Jan, [place] [address] [address] Oct, Type 2 diabetes mellitus without complic ations E11.9 [place] [address] [address] July, Mixed hyperlipidemia E78.2 [place] [address] [address] July, Type II or unspecified type diabetes deborah litus with neurological manifestations, not stated as uncontrolled E11.49 ; Hyperglycemia R73.9 ; 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.2 and End stage renal disease N18.6 [place] [address] [address] Jun, [place] [address] [address] Apr, Type 2 diabetes mellitus with diabetic c hronic kidney disease, 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 and Seizures R56.9 [place] [address] [address] Apr, Difficulty walking R26.2 [facility] [address] [facility] [id number] [address] [place] [address] Mar, Hyperglycemia R73.9 and Zion roenteritis K52.9 [place] [address] [address] July, Chronic renal failure, unspecified stage N18.9 [place] [address] [address] Jun, [place] [address] [address] Jun, Chronic renal failure, unspecified stage N18.9 [place] [address] [address] Jun, Chronic renal failure, unspecified stage N18.9 and Leg pain, diffuse, unspecified laterality M79.606 [place] [address] [address] May, [place] [address] [address] May, [facility] [address] [facility] [id number] [address] [place] [address] May, [facility] [address] [address] May, Chronic renal failure, unspecified stage N18.9 [place] [address] [address] Apr, Chronic renal failure, unspecified stage N18.9 [place] [address] [address] Mar, [place] [address] [address] Mar, Kidney dysfunction N28.9 ; Type 2 diabet es mellitus with diabetic chronic kidney disease, 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 ; Essential hypertension I10 ; Charcot ankle M14.679 and Chronic renal failure, unspecified stage N18.9 [place] [address] [address] Dec, Kidney dysfunction N28.9 [place] [address] [address] Nov, Type 2 diabetes mellitus without complic ations E11.9 ; Essential hypertension I10 ; Charcot ankle M14.679 ; History of hypothyroidism Z86.39 and History of anemia Z86.2 [place] [address] [address] Oct, Type 2 diabetes mellitus with diabetic c hronic kidney disease, 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 [place] [address] [address] Oct, Onychocryptosis L60.0 ; Charcot ankle M1 4.679 ; Pes planus M21.40 and Type 2 diabetes mellitus with diabetic chronic kidney disease, 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 [place] [address] [address] Sep, [place] [address] [address] Sep, [place] [address] [address] Aug, [place] [address] [address] Aug, Type 2 diabetes mellitus with diabetic c hronic kidney disease, 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 ; Essential hypertension I10 ; Charcot ankle M14.679 ; History of hypothyroidism Z86.39 and History of anemia Z86.[address] [address] May, Acute kidney injury N17.9 ; Essential hy pertension I10 and Type 2 diabetes mellitus with diabetic chronic kidney disease, 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 [place] [address] [address] Mar, Foot pain M79.673 ; Charcot ankle M14.67 9 and Pes planus M21.40 [place] [address] [address] Feb, Left foot pain M79.672 ; Charcot ankle M 14.679 and Type II or unspecified type diabetes mellitus with neurological manifestations, not stated as uncontrolled E11.[address] [address] Dec, Hypoglycemia, unspecified E16.[address] [address] Dec, Left foot pain M79.672 [place] [address] [address] Dec, Pain in left foot M79.672 ; Other specif ied soft tissue disorders M79.89 and Type 2 diabetes mellitus with diabetic neuropathy E11.40 [facility] [address] [id number] [place] [address] 14 Jun, 2014 [facility] [address] [place] [id number] [place] [address] Jun, [facility] [address] [place] [id number] [place] [address] 16 May, 2014 [facility] [address] [place] [id number] [place] [address] May, [facility] [address] [place] [id number] [place] [address] 18 Apr, 2014 [facility] [address] [place] [id number] [place] [address] Apr, [facility] [address] [place] [id number] [place] [address] Apr, [facility] [address] [place] [id number] [place] [address] Apr, [facility] [address] [place] [id number] [place] [address] Mar, [facility] [address] [place] [id number] [place] [address] Mar, [facility] [address] [place] [id number] [place] [address] Feb, [facility] [address] [place] [id number] [place] [address] Feb, [facility] [address] [place] [id number] [place] [address] Feb, [facility] [address] [place] [id number] [place] [address] Feb, [facility] [address] [place] [id number] [place] [address] Oct, [facility] [address] [facility] [id number] [place] [address] Oct, [facility] [address] [id number] [place] [address] Oct, [facility] [address] [id number] [place] [address] Oct, [facility] [address] [id number] [place] [address] Oct, [facility] [address] [id number] [place] [address] Oct, [facility] [address] [id number] [place] [address] Oct, [facility] [address] [id number] [place] [address] Oct, [facility] [address] [id number] [place] [address] Aug, [facility] [address] [id number] [place] [address] Aug, [facility] [address] [id number] [place] [address] Apr, [facility] [address] [id number] [place] [address] Apr, [facility] [address] [id number] [place] [address] Apr, [facility] [address] [id number] [place] [address] Apr, [facility] [address] [id number] [place] [address] Apr, [facility] [address] [id number] [place] [address] Apr, [facility] [address] [id number] [place] [address] Apr, [facility] [address] [id number] [place] [address] Apr, [facility] [address] [id number] [place] [address] Mar, [facility] [address] [id number] [place] [address] Mar, [facility] [address] [id number] [place] [address] Mar, [facility] [address] [id number] [place] [address] Mar, [facility] [address] [id number] [place] [address] Mar, [facility] [address] [id number] [place] [address] Mar, [facility] [address] [id number] [place] [address] Mar, [facility] [address] [id number] [place] [address] Mar, [facility] [address] [id number] [place] [address] Mar, [facility] [address] [id number] [place] [address] Mar, [facility] [address] [id number] [place] [address] Mar, [facility] [address] [place] [id number] [place] [address] Mar, [facility] [address] [id number] [place] [address] Feb, [facility] [address] [place] [id number] [place] [address] Feb, [facility] [address] [id number] [place] [address] Feb, [facility] [address] [id number] [place] [address] Feb, IMMUNIZATIONS No Known Immunizations SOCIAL HISTORY [...]
--- OUTSIDE RECORDS SUMMARY | 2019-05-23 11:33 | XMS REPORT ---
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 Active 8795717 Problem Type II or unspecified type diabetes mellitus with neurological manifestations, not stated as uncontrolled E11.49 Active 28670532 Problem Leztfjs-Czfzq-Diozf disease-like deformity of foot 356.1 Active 741976034 Problem Type 2 diabetes mellitus wit h diabetic chronic kidney disease, 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 Active 532457 003 Problem Charcot ankle M14.679 Active 870835 008 Problem Type 2 diabetes mellitus without complications E11 .9 Active 333908849 Problem Chronic renal failure, unspecified stage N18.9 Active 87749393 Problem Difficulty walking R26.2 Active 7 76134277 Problem jail current use of insulin Z79.4 Active 307951110 Problem History of hypothyroidism Z86.39 Acti ve 597319470 Problem Hypoglycemia E16.2 Active 1265195 03 Problem Essential hypertension I10 Active 97249307 Problem 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.2 A ctive 958287697 Problem End stage renal disease N18.6 Active 790088789 Problem Mixed hyperlipidemia E78.2 Active 667989710 Problem Type 2 diabetes mellitus with hyperglycemia E11.65 Active 16852825 ALLERGIES No Information ENCOUNTERS Encounter Location Date Diagnosis [facility] [address] [id number] [place] [address] Jun, [facility] [address] [id number] [place] [address] Mar, Type 2 diabetes mellitus with diabetic c hronic kidney disease, 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 ; Essential hypertension I10 ; Charcot ankle M14.679 ; Hyperglycemia R73.9 ; Hypoglycemia E16.2 and 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.2 [place] [address] [address] Mar, Type 2 diabetes mellitus with diabetic c hronic kidney disease, 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 [facility] [place] [address] [address] [place] [id number] [place] [address] Jan, Bronchitis J40 [place] [address] [address] Sep, Type 2 diabetes mellitus with hyperglyce gavi E11.65 ; Essential hypertension I10 ; Chronic renal failure, unspecified stage N18.9 and Mixed hyperlipidemia E78.2 [place] [address] [address] Aug, [place] [address] [address] Jun, [place] [address] [address] Mar, Essential hypertension I10 ; 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 Z79.4 ; Type 2 diabetes mellitus with hyperglycemia E11.65 ; 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.2 and Mixed hyperlipidemia E78.2 [place] [address] [address] Feb, [place] [address] [address] Feb, Type II or unspecified type diabetes deborah litus with neurological manifestations, not stated as uncontrolled E11.49 ; Cough R05 ; Essential hypertension I10 ; Hyperglycemia R73.9 and Hematuria, unspecified type R31.9 [facility] [place] [address] [address] [place] [id number] [place] [address] Jan, HTN (hypertension) I10 ; Typ e 2 diabetes mellitus with diabetic chronic kidney disease, 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 and 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.2 [place] [address] [address] Jan, [facility] [address] [address] Oct, Type 2 diabetes mellitus without complic ations E11.9 [facility] [address] [address] July, Mixed hyperlipidemia E78.2 [place] [address] [address] July, Type II or unspecified type diabetes deborah litus with neurological manifestations, not stated as uncontrolled E11.49 ; Hyperglycemia R73.9 ; 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.2 and End stage renal disease N18.6 [place] [address] [address] Jun, [place] [address] [address] Apr, Type 2 diabetes mellitus with diabetic c hronic kidney disease, 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 and Seizures R56.9 [facility] [address] [address] 13 Apr, 2017 Difficulty walking R26.2 [facility] [address] [facility] [id number] [place] [address] Mar, Hyperglycemia R73.9 and [place] roenteritis K52.9 [place] [address] [address] July, Chronic renal failure, unspecified stage N18.9 [facility] [address] [address] Jun, [place] [address] [address] Jun, Chronic renal failure, unspecified stage N18.9 [place] [address] [address] Jun, Chronic renal failure, unspecified stage N18.9 and Leg pain, diffuse, unspecified laterality M79.606 [place] [address] [address] May, [place] [address] [address] May, [facility] [address] [facility] [id number] [place] [address] May, [place] [address] [address] May, Chronic renal failure, unspecified stage N18.9 [place] [address] [address] Apr, Chronic renal failure, unspecified stage N18.9 [place] [address] [address] Mar, [place] [address] [address] Mar, Kidney dysfunction N28.9 ; Type 2 diabet es mellitus with diabetic chronic kidney disease, 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 ; Essential hypertension I10 ; Charcot ankle M14.679 and Chronic renal failure, unspecified stage N18.9 [place] [address] [address] Dec, Kidney dysfunction N28.9 [place] [address] [address] Nov, Type 2 diabetes mellitus without complic ations E11.9 ; Essential hypertension I10 ; Charcot ankle M14.679 ; History of hypothyroidism Z86.39 and History of anemia Z86.2 [place] [address] [address] Oct, Type 2 diabetes mellitus with diabetic c hronic kidney disease, 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 [place] [address] [address] Oct, Onychocryptosis L60.0 ; Charcot ankle M1 4.679 ; Pes planus M21.40 and Type 2 diabetes mellitus with diabetic chronic kidney disease, 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 [place] [address] [address] Sep, [place] [address] [address] Sep, [place] [address] [address] Aug, [place] [address] [address] Aug, Type 2 diabetes mellitus with diabetic c hronic kidney disease, 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 ; Essential hypertension I10 ; Charcot ankle M14.679 ; History of hypothyroidism Z86.39 and History of anemia Z86.[address] [address] May, Acute kidney injury N17.9 ; Essential hy pertension I10 and Type 2 diabetes mellitus with diabetic chronic kidney disease, 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 [place] [address] [address] Mar, Foot pain M79.673 ; Charcot ankle M14.67 9 and Pes planus M21.40 [place] [address] [address] Feb, Left foot pain M79.672 ; Charcot ankle M 14.679 and Type II or unspecified type diabetes mellitus with neurological manifestations, not stated as uncontrolled E11.49 [place] [address] [address] Dec, Hypoglycemia, unspecified E16.[address] [address] Dec, Left foot pain M79.[address] [address] Dec, Pain in left foot M79.672 ; Other specif ied soft tissue disorders M79.89 and Type 2 diabetes mellitus with diabetic neuropathy E11.40 [facility] [address] [id number] [place] [address] 14 Jun, 2014 [facility] [address] [id number] [place] [address] Jun, [facility] [address] [id number] [place] [address] May, [facility] [address] [id number] [place] [address] May, [facility] [address] [id number] [place] [address] Apr, [facility] [address] [id number] [place] [address] Apr, [facility] [address] [place] [id number] [place] [address] Apr, [facility] [address] [id number] [place] [address] Apr, [facility] [address] [id number] [place] [address] Mar, [facility] [address] [place] [id number] [place] [address] Mar, [facility] [address] [id number] [place] [address] Feb, [facility] [address] [place] [id number] [place] [address] Feb, [facility] [address] [id number] [place] [address] Feb, [facility] [address] [place] [id number] [place] [address] Feb, [facility] [address] [id number] [place] [address] Oct, [facility] [address] [place] [id number] [place] [address] Oct, [facility] [address] [id number] [place] [address] Oct, [facility] [address] [id number] [place] [address] Oct, [facility] [address] [id number] [place] [address] Oct, [facility] [address] [id number] [place] [address] Oct, [facility] [address] [id number] [place] [address] Oct, [facility] [address] [id number] [place] [address] Oct, [facility] [address] [id number] [place] [address] Aug, [facility] [address] [id number] [place] [address] Aug, [facility] [address] [id number] [place] [address] Apr, [facility] [address] [id number] [place] [address] Apr, [facility] [address] [id number] [place] [address] Apr, [facility] [address] [id number] [place] [address] Apr, [facility] [address] [id number] [place] [address] Apr, [facility] [address] [id number] [place] [address] Apr, [facility] [address] [id number] [place] [address] Apr, [facility] [address] [id number] [place] [address] Apr, [facility] [address] [place] [id number] [place] [address] Mar, [facility] [address] [place] [id number] [place] [address] Mar, [facility] [address] [place] [id number] [place] [address] Mar, [facility] [address] [place] [id number] [place] [address] Mar, [facility] [address] [place] [id number] [place] [address] Mar, [facility] [address] [place] [id number] [place] [address] Mar, [facility] [address] [place] [id number] [place] [address] Mar, [facility] [address] [place] [id number] [place] [address] Mar, [facility] [address] [place] [id number] [place] [address] Mar, [facility] [address] [place] [id number] [place] [address] Mar, [facility] [address] [place] [id number] [place] [address] Mar, [facility] [address] [place] [id number] [place] [address] Mar, [facility] [address] [place] [id number] [place] [address] Feb, [facility] [address] [place] [id number] [place] [address] Feb, [facility] [address] [place] [id number] [place] [address] Feb, [facility] [address] [place] [id number] [place] [address] Feb, IMMUNIZATIONS No Known Immunizations SOCIAL HISTORY [...]
--- OUTSIDE RECORDS SUMMARY | 2019-05-23 11:33 | XMS REPORT ---
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 Active 0862448 Problem Rryuaer-Xzuio-Xrrkf disease-like deformity of foot 356.1 Active 737360438 Problem Charcot foot due to diabetes mellitus E11.610 Active 56321530 Problem Charcot ankle M14.679 Active 900742 008 Problem Type II or unspecified type diabetes mellitus with neurological manifestations, not stated as uncontrolled E11.49 Active 10358107 Problem History of hypothyroidism Z86.39 Acti ve 147099605 Problem Type 2 diabetes mellitus without complications E11 .9 Active 515016239 Problem Chronic renal failure, unspecified stage N18.9 Active 31874178 Problem half-way current use of insulin Z79.4 Active 701577992 Problem Essential hypertension I10 Active 87372568 Problem Type 2 diabetes mellitus with hyperglycemia E11.65 Active 58722705 Problem Type 2 diabetes mellitus wit h diabetic chronic kidney disease, 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 Active 581841 003 Problem Difficulty walking R26.2 Active 7 42133500 Problem 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.2 A ctive 469993256 Problem End stage renal disease N18.6 Active 000941774 Problem Mixed hyperlipidemia E78.2 Active [id number] ALLERGIES No Information ENCOUNTERS Encounter Location Date Diagnosis [place] [id number] [facility] [id number] [address] [address] Sep, Type 2 diabetes mellitus wit h hyperglycemia E11.65 ; Essential hypertension I10 ; Chronic renal failure, unspecified stage N18.9 and Mixed hyperlipidemia E78.2 [facility] [address] [facility] [id number] [address] [place] [address] Aug, [facility] [address] [facility] [id number] [address] [place] [address] Jun, [facility] [address] [facility] [id number] [address] [place] [address] Mar, Essential hypertension I10 ; 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 ; Type 2 diabetes mellitus with hyperglycemia E11.65 ; 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.2 and Mixed hyperlipidemia E78.2 [facility] [address] [facility] [id number] [address] [place] [address] Feb, [facility] [address] [facility] [id number] [address] [place] [address] Feb, Type II or unspecified type diabetes mellitus with neurological manifestations, not stated as uncontrolled E11.49 ; Cough R05 ; Essential hypertension I10 ; Hyperglycemia R73.9 and Hematuria, unspecified type R31.9 [facility] [address] [facility] [id number] [address] [place] [address] Jan, HTN (hypertension) I10 ; Typ e 2 diabetes mellitus with diabetic chronic kidney disease, 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 and 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.2 [facility] [address] [facility] [id number] [address] [place] [address] Jan, [facility] [address] [facility] [id number] [address] [place] [address] Oct, Type 2 diabetes mellitus wit hout complications E11.9 [facility] [address] [facility] [id number] [address] [place] [address] July, Mixed hyperlipidemia E78.2 [facility] [address] [facility] [id number] [address] [place] [address] July, Type II or unspecified type diabetes mellitus with neurological manifestations, not stated as uncontrolled E11.49 ; Hyperglycemia R73.9 ; 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 [address] [address] Mar, Hyperglycemia R73.9 and Zion roenteritis K52.9 [place] [address] [address] July, Chronic renal failure, unspe cified stage N18.9 [place] [address] [address] Jun, [place] [address] [address] Jun, Chronic renal failure, unspe cified stage N18.9 [place] [address] [place] [id number] [address] [place] [address] Jun, Chronic renal failure, unspe cified stage N18.9 and Leg pain, diffuse, unspecified laterality M79.606 [place] [address] [place] [id number] [address] [place] [address] May, [place] [address] [place] [id number] [address] [place] [address] May, [facility] [address] [address] May, [place] [address] [address] May, Chronic renal failure, unspe cified stage N18.9 [place] [address] [place] [id number] [address] [place] [address] Apr, Chronic renal failure, unspe cified stage N18.9 [place] [address] [facility] [id number] [address] [place] [address] Mar, [place] [address] [place] [id number] [address] [place] [address] Mar, Kidney dysfunction N28.9 ; T ype 2 diabetes mellitus with diabetic chronic kidney disease, 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 ; Essential hypertension I10 ; Charcot ankle M14.679 and Chronic renal failure, unspecified stage N18.9 [place] [address] [place] [id number] [address] [place] [address] Dec, Kidney dysfunction N28.9 [place] [address] [place] [id number] [address] [place] [address] Nov, Type 2 diabetes mellitus wit hout complications E11.9 ; Essential hypertension I10 ; Charcot ankle M14.679 ; History of hypothyroidism Z86.39 and History of anemia Z86.2 [place] [address] [facility] [id number] [address] [place] [address] Oct, Type 2 diabetes mellitus wit h diabetic chronic kidney disease, 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 [place] [address] [place] [id number] [address] [place] [address] Oct, Onychocryptosis L60.0 ; Linda cot ankle M14.679 ; Pes planus M21.40 and Type 2 diabetes mellitus with diabetic chronic kidney disease, 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 [place] [address] [facility] [id number] [address] [place] [address] Sep, [place] [address] [place] [id number] [address] [place] [address] Sep, [place] [address] [place] [id number] [address] [place] [address] Aug, [place] [address] [place] [id number] [place] [address] 09 Aug, 2015 Type 2 diabetes mellitus wit h diabetic chronic kidney disease, 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 ; Essential hypertension I10 ; Charcot ankle M14.679 ; History of hypothyroidism Z86.39 and History of anemia Z86.2 [place] [address] [address] 05 May, 2015 Acute kidney injury N17.9 ; Essential hypertension I10 and Type 2 diabetes mellitus with diabetic chronic kidney disease, 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 [place] [address] [address] 22 Mar, 2015 Foot pain M79.673 ; Charcot ankle M14.679 and Pes planus M21.40 [place] [address] [address] 04 Feb, 2015 Left foot pain M79.672 ; Vera rcot ankle M14.679 and Type II or unspecified type diabetes mellitus with neurological manifestations, not stated as uncontrolled E11.49 [place] [address] [address] 15 Dec, 2014 Hypoglycemia, unspecified E1 6.2 [place] [address] [address] 14 Dec, 2014 Left foot pain M79.672 [place] [address] [address] 13 Dec, 2014 Pain in left foot M79.672 ; Other specified soft tissue disorders M79.89 and Type 2 diabetes mellitus with diabetic neuropathy E11.40 [place] [address] [address] 14 Jun, 2014 [place] [address] [address] Jun, [place] [address] [address] 16 May, 2014 [facility] [address] [id number] [address] [place] [address], [place] [address] May, [facility] [address] [id number] [address] [place] [address], [place] [address] Apr, [facility] [address] [id number] [address] [place] [address], [place] [address] Apr, [facility] [address] [id number] [address] [place] [address], [place] [address] Apr, [facility] [address] [id number] [address] [place] [address], [place] [address] Apr, [facility] [address] [id number] [address] [place] [address], [place] [address] Mar, [facility] [address] [id number] [address] [place] [address], [place] [address] Mar, [facility] [address] [id number] [address] [place] [address], [place] [address] Feb, [facility] [address] [id number] [address] [place] [address], [place] [address] Feb, [facility] [address] [id number] [address] [place] [address], [place] [address] Feb, [facility] [address] [id number] [address] [place] [address], [place] [address] Feb, [facility] [address] [id number] [address] [place] [address], [place] [address] Oct, [facility] [address] [id number] [address] [place] [address], [place] [address] Oct, [facility] [address] [id number] [address] [place] [address], [place] [address] Oct, [facility] [address] [id number] [address] [place] [address], [place] [address] Oct, [facility] [address] [id number] [address] [place] [address], [place] [address] Oct, [facility] [address] [id number] [address] [place] [address], [place] [address] Oct, [facility] [address] [id number] [address] [place] [address], [place] [address] Oct, [facility] [address] [id number] [address] [place] [address], [place] [address] Oct, [facility] [address] [id number] [address] [place] [address], [place] [address] Aug, [facility] [address] [id number] [address] [place] [address], [place] [address] Aug, [facility] [address] [id number] [address] [place] [address], [place] [address] Apr, [facility] [address] [id number] [address] [place] [address], [place] [address] Apr, [facility] [address] [id number] [address] [place] [address], [place] [address] Apr, [facility] [address] [id number] [address] [place] [address], [place] [address] Apr, [facility] [address] [id number] [address] [place] [address], [place] [address] Apr, [facility] [address] [id number] [address] [place] [address], [place] [address] Apr, [facility] [address] [id number] [address] [place] [address], [place] [address] Apr, [facility] [address] [id number] [address] [place] [address], [place] [address] Apr, [facility] [address] [id number] [address] [place] [address], [place] [address] Mar, [facility] [address] [id number] [address] [place] [address], [place] [address] Mar, [facility] [address] [id number] [address] [place] [address] Mar, [facility] [address] [id number] [address] [place] [address] Mar, [facility] [address] [id number] [address] [place] [address] Mar, [facility] [address] [id number] [address] [place] [address] Mar, [facility] [address] [id number] [address] [place] [address] Mar, [facility] [address] [id number] [address] [place] [address] Mar, [facility] [address] [id number] [address] [place] [address] Mar, [facility] [address] [id number] [address] [place] [address] Mar, [facility] [address] [id number] [address] [place] [address] Mar, [facility] [address] [id number] [address] [place] [address] Mar, [facility] [address] [id number] [address] [place] [address] Feb, [facility] [address] [id number] [address] [place] [address] Feb, [facility] [address] [id number] [address] [place] [address] Feb, [facility] [address] [id number] [address] [place] [address] Feb, IMMUNIZATIONS No Known Immunizations SOCIAL HISTORY [...]
--- OUTSIDE RECORDS SUMMARY | 2019-05-23 11:33 | XMS REPORT ---
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 Active 4768005 Problem Type II or unspecified type diabetes mellitus with neurological manifestations, not stated as uncontrolled E11.49 Active 35784609 Problem Qrsoffq-Pfogn-Mlkwn disease-like deformity of foot 356.1 Active 744302576 Problem Type 2 diabetes mellitus wit h diabetic chronic kidney disease, 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 Active 048192 003 Problem Charcot ankle M14.679 Active 117470 008 Problem Type 2 diabetes mellitus without complications E11 .9 Active 209400084 Problem Chronic renal failure, unspecified stage N18.9 Active 91206008 Problem Difficulty walking R26.2 Active 7 06254210 Problem 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 Active 052944812 Problem History of hypothyroidism Z86.39 Acti ve 205828996 Problem Hypoglycemia E16.2 Active 5276913 03 Problem Essential hypertension I10 Active 93528283 Problem 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.2 A ctive 669738211 Problem End stage renal disease N18.6 Active 489616172 Problem Mixed hyperlipidemia E78.2 Active 143523062 Problem Type 2 diabetes mellitus with hyperglycemia E11.65 Active 11939057 ALLERGIES No Information ENCOUNTERS Encounter Location Date Diagnosis [facility] [address] [id number] [place] [address] Jun, [facility] [address] [id number] [place] [address] Mar, Type 2 diabetes mellitus with diabetic c hronic kidney disease, 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 ; Essential hypertension I10 ; Charcot ankle M14.679 ; Hyperglycemia R73.9 ; Hypoglycemia E16.2 and 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.2 [place] [address] [address] Mar, Type 2 diabetes mellitus with diabetic c hronic kidney disease, 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 [facility] [address] [place] [id number] [address] [place] [address] Jan, Bronchitis J40 [place] [address] [address] Sep, Type 2 diabetes mellitus with hyperglyce gavi E11.65 ; Essential hypertension I10 ; Chronic renal failure, unspecified stage N18.9 and Mixed hyperlipidemia E78.2 [place] [address] [address] Aug, [place] [address] [address] Jun, [place] [address] [address] Mar, Essential hypertension I10 ; termite inspector c urrent use of insulin Z79.4 ; Type 2 diabetes mellitus with hyperglycemia E11.65 ; 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.2 and Mixed hyperlipidemia E78.2 [place] [address] [address] Feb, [place] [address] [address] Feb, Type II or unspecified type diabetes deborah litus with neurological manifestations, not stated as uncontrolled E11.49 ; Cough R05 ; Essential hypertension I10 ; Hyperglycemia R73.9 and Hematuria, unspecified type R31.9 [facility] [address] [facility] [id number] [address] [place] [address] Jan, HTN (hypertension) I10 ; Typ e 2 diabetes mellitus with diabetic chronic kidney disease, 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 and 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.2 [place] [address] [address] Jan, [place] [address] [address] Oct, Type 2 diabetes mellitus without complic ations E11.9 [place] [address] [address] July, Mixed hyperlipidemia E78.2 [place] [address] [address] July, Type II or unspecified type diabetes deborah litus with neurological manifestations, not stated as uncontrolled E11.49 ; Hyperglycemia R73.9 ; 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.2 and End stage renal disease N18.6 [place] [address] [address] Jun, [place] [address] [address] Apr, Type 2 diabetes mellitus with diabetic c hronic kidney disease, 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 and Seizures R56.9 [place] [address] [address] Apr, Difficulty walking R26.2 [facility] [address] [facility] [id number] [address] [place] [address] Mar, Hyperglycemia R73.9 and Zion roenteritis K52.9 [place] [address] [address] July, Chronic renal failure, unspecified stage N18.9 [place] [address] [address] Jun, [place] [address] [address] Jun, Chronic renal failure, unspecified stage N18.9 [place] [address] [address] Jun, Chronic renal failure, unspecified stage N18.9 and Leg pain, diffuse, unspecified laterality M79.606 [place] [address] [address] May, [place] [address] [address] May, [facility] [address] [facility] [id number] [address] [place] [address] May, [facility] [address] [address] May, Chronic renal failure, unspecified stage N18.9 [place] [address] [address] Apr, Chronic renal failure, unspecified stage N18.9 [place] [address] [address] Mar, [place] [address] [address] Mar, Kidney dysfunction N28.9 ; Type 2 diabet es mellitus with diabetic chronic kidney disease, 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 ; Essential hypertension I10 ; Charcot ankle M14.679 and Chronic renal failure, unspecified stage N18.9 [place] [address] [address] Dec, Kidney dysfunction N28.9 [place] [address] [address] Nov, Type 2 diabetes mellitus without complic ations E11.9 ; Essential hypertension I10 ; Charcot ankle M14.679 ; History of hypothyroidism Z86.39 and History of anemia Z86.2 [place] [address] [address] Oct, Type 2 diabetes mellitus with diabetic c hronic kidney disease, 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 [place] [address] [address] Oct, Onychocryptosis L60.0 ; Charcot ankle M1 4.679 ; Pes planus M21.40 and Type 2 diabetes mellitus with diabetic chronic kidney disease, 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 [place] [address] [address] Sep, [place] [address] [address] Sep, [place] [address] [address] Aug, [place] [address] [address] Aug, Type 2 diabetes mellitus with diabetic c hronic kidney disease, 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 ; Essential hypertension I10 ; Charcot ankle M14.679 ; History of hypothyroidism Z86.39 and History of anemia Z86.[address] [address] May, Acute kidney injury N17.9 ; Essential hy pertension I10 and Type 2 diabetes mellitus with diabetic chronic kidney disease, 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 [place] [address] [address] Mar, Foot pain M79.673 ; Charcot ankle M14.67 9 and Pes planus M21.40 [place] [address] [address] Feb, Left foot pain M79.672 ; Charcot ankle M 14.679 and Type II or unspecified type diabetes mellitus with neurological manifestations, not stated as uncontrolled E11.[address] [address] Dec, Hypoglycemia, unspecified E16.[address] [address] Dec, Left foot pain M79.672 [place] [address] [address] Dec, Pain in left foot M79.672 ; Other specif ied soft tissue disorders M79.89 and Type 2 diabetes mellitus with diabetic neuropathy E11.40 [facility] [address] [id number] [place] [address] 14 Jun, [facility] [address] [place] [id number] [place] [address] Jun, [facility] [address] [place] [id number] [place] [address] 16 May, [facility] [address] [place] [id number] [place] [address] May, [facility] [address] [place] [id number] [place] [address] 18 Apr, 2014 [facility] [address] [place] [id number] [place] [address] Apr, [facility] [address] [place] [id number] [place] [address] Apr, [facility] [address] [place] [id number] [place] [address] Apr, [facility] [address] [place] [id number] [place] [address] Mar, [facility] [address] [place] [id number] [place] [address] Mar, [facility] [address] [place] [id number] [place] [address] Feb, [facility] [address] [place] [id number] [place] [address] Feb, [facility] [address] [place] [id number] [place] [address] Feb, [facility] [address] [place] [id number] [place] [address] Feb, [facility] [address] [place] [id number] [place] [address] Oct, [facility] [address] [facility] [id number] [place] [address] Oct, [facility] [address] [id number] [place] [address] Oct, [facility] [address] [id number] [place] [address] Oct, [facility] [address] [id number] [place] [address] Oct, [facility] [address] [id number] [place] [address] Oct, [facility] [address] [id number] [place] [address] Oct, [facility] [address] [id number] [place] [address] Oct, [facility] [address] [id number] [place] [address] Aug, [facility] [address] [id number] [place] [address] Aug, [facility] [address] [id number] [place] [address] Apr, [facility] [address] [id number] [place] [address] Apr, [facility] [address] [id number] [place] [address] Apr, [facility] [address] [id number] [place] [address] Apr, [facility] [address] [id number] [place] [address] Apr, [facility] [address] [id number] [place] [address] Apr, [facility] [address] [id number] [place] [address] Apr, [facility] [address] [id number] [place] [address] Apr, [facility] [address] [id number] [place] [address] Mar, [facility] [address] [id number] [place] [address] Mar, [facility] [address] [id number] [place] [address] Mar, [facility] [address] [id number] [place] [address] Mar, [facility] [address] [id number] [place] [address] Mar, [facility] [address] [id number] [place] [address] Mar, [facility] [address] [id number] [place] [address] Mar, [facility] [address] [id number] [place] [address] Mar, [facility] [address] [id number] [place] [address] Mar, [facility] [address] [id number] [place] [address] Mar, [facility] [address] [id number] [place] [address] Mar, [facility] [address] [place] [id number] [place] [address] Mar, [facility] [address] [id number] [place] [address] Feb, [facility] [address] [place] [id number] [place] [address] Feb, [facility] [address] [id number] [place] [address] Feb, [facility] [address] [id number] [place] [address] Feb, IMMUNIZATIONS No Known Immunizations SOCIAL HISTORY Never Assessed REASON FOR VISIT PLAN OF CARE VITAL SIGNS Weight 167.7 lbs 2013-04-17 Temperature 97.8 degrees Fahrenheit 2013-04-17 Heart Rate 96 bpm 2013-04-17 Respiratory Rate 20 2013-04-17 Blood pressure systolic 178 mmHg 2013-04-17 Blood pressure diastolic 100 mmHg 2013-04-17 MEDICATIONS Unknown Medications RESULTS No Results PROCEDURES [...]
--- OUTSIDE RECORDS SUMMARY | 2019-05-23 11:34 | XMS REPORT ---
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 Active 9805918 Problem Ahhpceb-Igpvo-Uarru disease-like deformity of foot 356.1 Active 353925673 Problem Charcot foot due to diabetes mellitus E11.610 Active 62414118 Problem Charcot ankle M14.679 Active 636662 008 Problem Type II or unspecified type diabetes mellitus with neurological manifestations, not stated as uncontrolled E11.49 Active 00175429 Problem History of hypothyroidism Z86.39 Acti ve 560456682 Problem Type 2 diabetes mellitus without complications E11 .9 Active 214893803 Problem Chronic renal failure, unspecified stage N18.9 Active 68388255 Problem 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.4 Active 312688870 Problem Essential hypertension I10 Active 24570933 Problem Type 2 diabetes mellitus with hyperglycemia E11.65 Active 42470996 Problem Type 2 diabetes mellitus wit h diabetic chronic kidney disease, 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 Active 997337 003 Problem Difficulty walking R26.2 Active 7 54078148 Problem 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.2 A ctive 477888850 Problem End stage renal disease N18.6 Active 245324125 Problem Mixed hyperlipidemia E78.2 Active [id number] ALLERGIES No Information ENCOUNTERS Encounter Location Date Diagnosis [place] [id number] [id number] [address] [address] Sep, Type 2 diabetes mellitus wit h hyperglycemia E11.65 ; Essential hypertension I10 ; Chronic renal failure, unspecified stage N18.9 and Mixed hyperlipidemia E78.2 [facility] [address] [id number] [address] [place] [address] Aug, [facility] [address] [id number] [address] [place] [address] Jun, [facility] [address] [id number] [address] [place] [address] Mar, Essential hypertension I10 ; 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 ; Type 2 diabetes mellitus with hyperglycemia E11.65 ; 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.2 and Mixed hyperlipidemia E78.2 [facility] [address] [id number] [address] [place] [address] Feb, [facility] [address] [id number] [address] [place] [address] Feb, Type II or unspecified type diabetes mellitus with neurological manifestations, not stated as uncontrolled E11.49 ; Cough R05 ; Essential hypertension I10 ; Hyperglycemia R73.9 and Hematuria, unspecified type R31.9 [facility] [address] [id number] [address] [place] [address] Jan, HTN (hypertension) I10 ; Typ e 2 diabetes mellitus with diabetic chronic kidney disease, 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 and 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.2 [facility] [address] [id number] [address] [place] [address] Jan, [facility] [address] [id number] [address] [place] [address] Oct, Type 2 diabetes mellitus wit hout complications E11.9 [facility] [address] [id number] [address] [place] [address] July, Mixed hyperlipidemia E78.2 [facility] [address] [id number] [address] [place] [address] July, Type II or unspecified type diabetes mellitus with neurological manifestations, not stated as uncontrolled E11.49 ; Hyperglycemia R73.9 ; 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.2 and End stage renal disease N18.6 [facility] [address] [place] [id number] [address] [place] [address] Jun, [facility] [address] [address] Apr, Type 2 diabetes mellitus wit h diabetic chronic kidney disease, 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 and Seizures R56.9 [place] [address] [address] Apr, Difficulty walking R26.2 [facility] [address] [address] Mar, Hyperglycemia R73.9 and Zion roenteritis K52.9 [place] [address] [address] July, Chronic renal failure, unspe cified stage N18.9 [place] [address] [address] Jun, [place] [address] [address] Jun, Chronic renal failure, unspe cified stage N18.9 [place] [address] [place] [id number] [address] [place] [address] Jun, Chronic renal failure, unspe cified stage N18.9 and Leg pain, diffuse, unspecified laterality M79.606 [place] [address] [place] [id number] [address] [place] [address] May, [place] [address] [place] [id number] [address] [place] [address] May, [facility] [address] [address] May, [place] [address] [id number] May, Chronic renal failure, unspe cified stage N18.9 [place] [address] [place] [id number] [address] [place] [address] Apr, Chronic renal failure, unspe cified stage N18.9 [place] [address] [id number] [address] [place] [address] Mar, [place] [address] [place] [id number] [address] [place] [address] Mar, Kidney dysfunction N28.9 ; T ype 2 diabetes mellitus with diabetic chronic kidney disease, 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 ; Essential hypertension I10 ; Charcot ankle M14.679 and Chronic renal failure, unspecified stage N18.9 [place] [address] [place] [id number] [address] [place] [address] Dec, Kidney dysfunction N28.9 [place] [address] [place] [id number] [address] [place] [address] Nov, Type 2 diabetes mellitus wit hout complications E11.9 ; Essential hypertension I10 ; Charcot ankle M14.679 ; History of hypothyroidism Z86.39 and History of anemia Z86.2 [place] [address] [id number] [address] [place] [address] Oct, Type 2 diabetes mellitus wit h diabetic chronic kidney disease, 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 [place] [address] [place] [id number] [address] [place] [address] Oct, Onychocryptosis L60.0 ; Linda cot ankle M14.679 ; Pes planus M21.40 and Type 2 diabetes mellitus with diabetic chronic kidney disease, 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 [place] [address] [id number] [address] [place] [address] Sep, [place] [address] [place] [id number] [address] [place] [address] Sep, [place] [address] [place] [id number] [address] [place] [address] Aug, [place] [address] [place] [id number] [place] [address] 09 Aug, 2015 Type 2 diabetes mellitus wit h diabetic chronic kidney disease, 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 ; Essential hypertension I10 ; Charcot ankle M14.679 ; History of hypothyroidism Z86.39 and History of anemia Z86.2 [place] [address] [address] 05 May, 2015 Acute kidney injury N17.9 ; Essential hypertension I10 and Type 2 diabetes mellitus with diabetic chronic kidney disease, 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 [place] [address] [address] 22 Mar, 2015 Foot pain M79.673 ; Charcot ankle M14.679 and Pes planus M21.40 [place] [address] [address] 04 Feb, 2015 Left foot pain M79.672 ; Vera rcot ankle M14.679 and Type II or unspecified type diabetes mellitus with neurological manifestations, not stated as uncontrolled E11.49 [place] [address] [address] 15 Dec, 2014 Hypoglycemia, unspecified E1 6.2 [place] [address] [address] 14 Dec, 2014 Left foot pain M79.672 [place] [address] [address] 13 Dec, 2014 Pain in left foot M79.672 ; Other specified soft tissue disorders M79.89 and Type 2 diabetes mellitus with diabetic neuropathy E11.40 [place] [address] [address] 14 Jun, 2014 [place] [address] [address] Jun, [place] [address] [id number] 16 May, 2014 [facility] [address] [id number] [address] [place] [address], [place] [address] May, [facility] [address] [id number] [address] [place] [address], [place] [address] Apr, [facility] [address] [id number] [address] [place] [address], [place] [address] Apr, [facility] [address] [id number] [address] [place] [address], [place] [address] Apr, [facility] [address] [id number] [address] [place] [address], [place] [address] Apr, [facility] [address] [id number] [address] [place] [address], [place] [address] Mar, [facility] [address] [id number] [address] [place] [address], [place] [address] Mar, [facility] [address] [id number] [address] [place] [address], [place] [address] Feb, [facility] [address] [id number] [address] [place] [address], [place] [address] Feb, [facility] [address] [id number] [address] [place] [address], [place] [address] Feb, [facility] [address] [id number] [address] [place] [address], [place] [address] Feb, [facility] [address] [id number] [address] [place] [address], [place] [address] Oct, [facility] [address] [id number] [address] [place] [address], [place] [address] Oct, [facility] [address] [id number] [address] [place] [address], [place] [address] Oct, [facility] [address] [id number] [address] [place] [address], [place] [address] Oct, [facility] [address] [id number] [address] [place] [address], [place] [address] Oct, [facility] [address] [id number] [address] [place] [address], [place] [address] Oct, [facility] [address] [id number] [address] [place] [address], [place] [address] Oct, [facility] [address] [id number] [address] [place] [address], [place] [address] Oct, [facility] [address] [id number] [address] [place] [address], [place] [address] Aug, [facility] [address] [id number] [address] [place] [address], [place] [address] Aug, [facility] [address] [id number] [address] [place] [address], [place] [address] Apr, [facility] [address] [id number] [address] [place] [address], [place] [address] Apr, [facility] [address] [id number] [address] [place] [address], [place] [address] Apr, [facility] [address] [id number] [address] [place] [address], [place] [address] Apr, [facility] [address] [id number] [address] [place] [address], [place] [address] Apr, [facility] [address] [id number] [address] [place] [address], [place] [address] Apr, [facility] [address] [id number] [address] [place] [address], [place] [address] Apr, [facility] [address] [id number] [address] [place] [address], [place] [address] Apr, [facility] [address] [id number] [address] [place] [address], [place] [address] Mar, [facility] [address] [id number] [address] [place] [address], [place] [address] Mar, [facility] [address] [id number] [address] [place] [address] Mar, [facility] [address] [id number] [address] [place] [id number] Mar, [facility] [address] [id number] [address] [place] [address] Mar, [facility] [address] [id number] [address] [place] [address] Mar, [facility] [address] [id number] [address] [place] [address] Mar, [facility] [address] [id number] [address] [place] [address] Mar, [facility] [address] [id number] [address] [place] [phone] Mar, [facility] [address] [id number] [address] [place] [address] Mar, [facility] [address] [id number] [address] [place] [address] Mar, [facility] [address] [id number] [address] [place] [phone] Mar, [facility] [address] [id number] [address] [place] [phone] Feb, [facility] [address] [id number] [address] [place] [address] Feb, [facility] [address] [id number] [address] [place] [phone] Feb, [facility] [address] [id number] [address] [place] [address] Feb, IMMUNIZATIONS No Known Immunizations SOCIAL HISTORY Never Assessed REASON FOR VISIT PLAN OF CARE VITAL SIGNS Height 64 in 2014-03-05 Weight 171.1 lbs 2014-03-05 Temperature 97.5 degrees Fahrenheit 2014-03-05 Heart Rate 80 bpm 2014-03-05 Respiratory Rate 18 2014-03-05 Blood pressure systolic 180 mmHg 2014-03-05 Blood pressure diastolic 96 mmHg 2014-03-05 MEDICATIONS No Known Medications RESULTS No Results PROCEDURES Procedure Date Ordered Result Body Site COMPLETE CBC W/AUTO DIFF WBC Mar 05, 2014 ASSAY OF BLOOD/URIC ACID Mar 05, 2014 GLYCATED HEMOGLOBIN TEST Mar 05, 2014 MICROALBUMIN, SEMIQUANT Mar 05, 2014 MICROALBUMIN, QUANTITATIVE Mar 05, 2014 VENIPUNCT, ROUTINE* Mar 05, 2014 INSTRUCTIONS MEDICATIONS ADMINISTERED No Known Medications MEDICAL (GENERAL) HISTORY Type Description Date Medical History diabetes Type II Medical History hypertension Medical History Charcot foot due to diabetes mellitus Medical History kidney failure with dialysis Medical History anemia secondary to renal failure Surgical History Dialysis shunt Hospitalization History ER for low blood sugar 05/28
--- OUTSIDE RECORDS SUMMARY | 2019-05-23 11:34 | XMS REPORT ---
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 Active 1115414 Problem Fevhntr-Tkqaj-Wxzpy disease-like deformity of foot 356.1 Active 309210684 Problem Charcot foot due to diabetes mellitus E11.610 Active 56976070 Problem Charcot ankle M14.679 Active 310112 008 Problem Type II or unspecified type diabetes mellitus with neurological manifestations, not stated as uncontrolled E11.49 Active 05686054 Problem History of hypothyroidism Z86.39 Acti ve 808591106 Problem Type 2 diabetes mellitus without complications E11 .9 Active 653432406 Problem Chronic renal failure, unspecified stage N18.9 Active 69931614 Problem FDC current use of insulin Z79.4 Active 994044694 Problem Essential hypertension I10 Active 20707376 Problem Type 2 diabetes mellitus with hyperglycemia E11.65 Active 45343501 Problem Type 2 diabetes mellitus wit h diabetic chronic kidney disease, 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 Active 883244 003 Problem Difficulty walking R26.2 Active 7 59160658 Problem 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.2 A ctive 129487341 Problem End stage renal disease N18.6 Active 738423034 Problem Mixed hyperlipidemia E78.2 Active [id number] ALLERGIES No Information ENCOUNTERS Encounter Location Date Diagnosis [place] [id number] [facility] [id number] [address] [address] Sep, Type 2 diabetes mellitus wit h hyperglycemia E11.65 ; Essential hypertension I10 ; Chronic renal failure, unspecified stage N18.9 and Mixed hyperlipidemia E78.2 [facility] [address] [facility] [id number] [address] [place] [address] Aug, [facility] [address] [facility] [id number] [address] [place] [phone] Jun, [facility] [address] [facility] [id number] [address] [place] [address] Mar, Essential hypertension I10 ; watermaster current use of insulin Z79.4 ; Type 2 diabetes mellitus with hyperglycemia E11.65 ; 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.2 and Mixed hyperlipidemia E78.2 [facility] [address] [facility] [id number] [address] [place] [address] Feb, [facility] [address] [facility] [id number] [address] [place] [address] Feb, Type II or unspecified type diabetes mellitus with neurological manifestations, not stated as uncontrolled E11.49 ; Cough R05 ; Essential hypertension I10 ; Hyperglycemia R73.9 and Hematuria, unspecified type R31.9 [facility] [address] [facility] [id number] [address] [place] [address] Jan, HTN (hypertension) I10 ; Typ e 2 diabetes mellitus with diabetic chronic kidney disease, 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 and 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.2 [facility] [address] [facility] [id number] [address] [place] [phone] Jan, [facility] [address] [facility] [id number] [address] [place] [phone] Oct, Type 2 diabetes mellitus wit hout complications E11.9 [facility] [address] [facility] [id number] [address] [place] [address] July, Mixed hyperlipidemia E78.2 [facility] [address] [facility] [id number] [address] [place] [address] July, Type II or unspecified type diabetes mellitus with neurological manifestations, not stated as uncontrolled E11.49 ; Hyperglycemia R73.9 ; 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.2 and End stage renal disease N18.6 [facility] [address] [place] [id number] [address] [place] [address] Jun, [facility] [address] [id number] Apr, Type 2 diabetes mellitus wit h diabetic chronic kidney disease, 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 and Seizures R56.9 [place] [address] [address] Apr, Difficulty walking R26.2 [facility] [address] [address] Mar, Hyperglycemia R73.9 and Zion roenteritis K52.9 [place] [address] [address] July, Chronic renal failure, unspe cified stage N18.9 [place] [address] [id number] Jun, [place] [address] [id number] Jun, Chronic renal failure, unspe cified stage N18.9 [place] [address] [place] [id number] [address] [place] [address] Jun, Chronic renal failure, unspe cified stage N18.9 and Leg pain, diffuse, unspecified laterality M79.606 [place] [address] [place] [id number] [address] [place] [address] May, [place] [address] [place] [id number] [address] [place] [address] May, [facility] [address] [address] May, [place] [address] [address] May, Chronic renal failure, unspe cified stage N18.9 [place] [address] [place] [id number] [address] [place] [address] Apr, Chronic renal failure, unspe cified stage N18.9 [place] [address] [facility] [id number] [address] [place] [phone] Mar, [place] [address] [place] [id number] [address] [place] [phone] Mar, Kidney dysfunction N28.9 ; T ype 2 diabetes mellitus with diabetic chronic kidney disease, 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 ; Essential hypertension I10 ; Charcot ankle M14.679 and Chronic renal failure, unspecified stage N18.9 [place] [address] [place] [id number] [address] [place] [address] Dec, Kidney dysfunction N28.9 [place] [address] [place] [id number] [address] [place] [address] Nov, Type 2 diabetes mellitus wit hout complications E11.9 ; Essential hypertension I10 ; Charcot ankle M14.679 ; History of hypothyroidism Z86.39 and History of anemia Z86.2 [place] [address] [facility] [id number] [address] [place] [address] Oct, Type 2 diabetes mellitus wit h diabetic chronic kidney disease, 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 [place] [address] [place] [id number] [address] [place] [address] Oct, Onychocryptosis L60.0 ; Linda cot ankle M14.679 ; Pes planus M21.40 and Type 2 diabetes mellitus with diabetic chronic kidney disease, 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 [place] [address] [facility] [id number] [address] [place] [address] Sep, [place] [address] [place] [id number] [address] [place] [phone] Sep, [place] [address] [place] [id number] [address] [place] [address] Aug, [place] [address] [place] [id number] [place] [address] 09 Aug, 2015 Type 2 diabetes mellitus wit h diabetic chronic kidney disease, 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 ; Essential hypertension I10 ; Charcot ankle M14.679 ; History of hypothyroidism Z86.39 and History of anemia Z86.2 [place] [id number] [id number] 05 May, 2015 Acute kidney injury N17.9 ; Essential hypertension I10 and Type 2 diabetes mellitus with diabetic chronic kidney disease, 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 [place] [address] [id number] 22 Mar, 2015 Foot pain M79.673 ; Charcot ankle M14.679 and Pes planus M21.40 [place] [address] [id number] 04 Feb, 2015 Left foot pain M79.672 ; Vera rcot ankle M14.679 and Type II or unspecified type diabetes mellitus with neurological manifestations, not stated as uncontrolled E11.49 [place] [address] [id number] 15 Dec, 2014 Hypoglycemia, unspecified E1 6.2 [place] [address] [address] 14 Dec, 2014 Left foot pain M79.672 [place] [address] [address] 13 Dec, 2014 Pain in left foot M79.672 ; Other specified soft tissue disorders M79.89 and Type 2 diabetes mellitus with diabetic neuropathy E11.40 [place] [address] [id number] 14 Jun, 2014 [place] [address] [address] Jun, [place] [address] [id number] 16 May, 2014 [facility] [address] [id number] [address] [place] [address], [place] [address] May, [facility] [address] [id number] [address] [place] [address], [place] [address] Apr, [facility] [address] [id number] [address] [place] [address], [place] [address] Apr, [facility] [address] [id number] [address] [place] [address], [place] [address] Apr, [facility] [address] [id number] [address] [place] [address], [place] [address] Apr, [facility] [address] [id number] [address] [place] [address], [place] [address] Mar, [facility] [address] [id number] [address] [place] [address], [place] [address] Mar, [facility] [address] [id number] [address] [place] [address], [place] [address] Feb, [facility] [address] [id number] [address] [place] [address], [place] [address] Feb, [facility] [address] [id number] [address] [place] [address], [place] [address] Feb, [facility] [address] [id number] [address] [place] [address], [place] [address] Feb, [facility] [address] [id number] [address] [place] [address], [place] [address] Oct, [facility] [address] [id number] [address] [place] [address], [place] [address] Oct, [facility] [address] [id number] [address] [place] [address], [place] [address] Oct, [facility] [address] [id number] [address] [place] [address], [place] [address] Oct, [facility] [address] [id number] [address] [place] [address], [place] [address] Oct, [facility] [address] [id number] [address] [place] [address], [place] [address] Oct, [facility] [address] [id number] [address] [place] [address], [place] [address] Oct, [facility] [address] [id number] [address] [place] [address], [place] [address] Oct, [facility] [address] [id number] [address] [place] [address], [place] [address] Aug, [facility] [address] [id number] [address] [place] [address], [place] [address] Aug, [facility] [address] [id number] [address] [place] [address], [place] [address] Apr, [facility] [address] [id number] [address] [place] [address], [place] [address] Apr, [facility] [address] [id number] [address] [place] [address], [place] [address] Apr, [facility] [address] [id number] [address] [place] [address], [place] [address] Apr, [facility] [address] [id number] [address] [place] [address], [place] [address] Apr, [facility] [address] [id number] [address] [place] [address], [place] [address] Apr, [facility] [address] [id number] [address] [place] [address], [place] [address] Apr, [facility] [address] [id number] [address] [place] [address], [place] [address] Apr, [facility] [address] [id number] [address] [place] [address], [place] [address] Mar, [facility] [address] [id number] [address] [place] [address], [place] [address] Mar, [facility] [address] [id number] [address] [place] [address] Mar, [facility] [address] [id number] [address] [place] [address] Mar, [facility] [address] [id number] [address] [place] [address] Mar, [facility] [address] [id number] [address] [place] [address] Mar, [facility] [address] [id number] [address] [place] [address] Mar, [facility] [address] [id number] [address] [place] [address] Mar, [facility] [address] [id number] [address] [place] [address] Mar, [facility] [address] [id number] [address] [place] [address] Mar, [facility] [address] [id number] [address] [place] [address] Mar, [facility] [address] [id number] [address] [place] [address] Mar, [facility] [address] [id number] [address] [place] [address] Feb, [facility] [address] [id number] [address] [place] [phone] Feb, [facility] [address] [id number] [address] [place] [address] Feb, [facility] [address] [id number] [address] [place] [address] Feb, IMMUNIZATIONS No Known Immunizations SOCIAL HISTORY Never Assessed REASON FOR VISIT PLAN OF CARE VITAL SIGNS Height 64 in 2013-10-24 Weight 166.8 lbs 2013-10-24 Temperature 97.5 degrees Fahrenheit 2013-10-24 Heart Rate 108 bpm 2013-10-24 Respiratory Rate 20 2013-10-24 Blood pressure systolic 182 mmHg 2013-10-24 Blood pressure diastolic 92 mmHg 2013-10-24 MEDICATIONS No Known Medications RESULTS No Results PROCEDURES Procedure Date Ordered Result Body Site COMPLETE CBC W/AUTO DIFF WBC Oct 24, 2013 ASSAY THYROID STIM HORMONE Oct 24, 2013 ASSAY OF TOTAL THYROXINE Oct 24, 2013 GLYCATED HEMOGLOBIN TEST Oct 24, 2013 VENIPUNCT, ROUTINE* Oct 24, 2013 INSTRUCTIONS MEDICATIONS ADMINISTERED No Known Medications MEDICAL (GENERAL) HISTORY Type Description Date Medical History diabetes Type II Medical History hypertension Medical History Charcot foot due to diabetes mellitus Medical History kidney failure with dialysis Medical History anemia secondary to renal failure Surgical History Dialysis shunt Hospitalization History ER for low blood sugar 05/28
--- OUTSIDE RECORDS SUMMARY | 2019-05-23 11:34 | XMS REPORT ---
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 Active 4486242 Problem Qlkbecg-Vbawl-Lxrzd disease-like deformity of foot 356.1 Active 050199049 Problem Charcot foot due to diabetes mellitus E11.610 Active 69989690 Problem Charcot ankle M14.679 Active 399754 008 Problem Type II or unspecified type diabetes mellitus with neurological manifestations, not stated as uncontrolled E11.49 Active 92392754 Problem History of hypothyroidism Z86.39 Acti ve 503923626 Problem Type 2 diabetes mellitus without complications E11 .9 Active 245444389 Problem Chronic renal failure, unspecified stage N18.9 Active 99049681 Problem detention current use of insulin Z79.4 Active 773717992 Problem Essential hypertension I10 Active 23949613 Problem Type 2 diabetes mellitus with hyperglycemia E11.65 Active 78946446 Problem Type 2 diabetes mellitus wit h diabetic chronic kidney disease, 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 Active 651920 003 Problem Difficulty walking R26.2 Active 7 84690363 Problem 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.2 A ctive 212624059 Problem End stage renal disease N18.6 Active 039168639 Problem Mixed hyperlipidemia E78.2 Active 089394279 ALLERGIES No Information ENCOUNTERS Encounter Location Date Diagnosis [place] [address] [facility] [id number] [address] [address] Sep, Type 2 diabetes mellitus wit h hyperglycemia E11.65 ; Essential hypertension I10 ; Chronic renal failure, unspecified stage N18.9 and Mixed hyperlipidemia E78.2 [facility] [address] [facility] [id number] [address] [place] [address] Aug, [facility] [address] [facility] [id number] [address] [place] [address] Jun, [facility] [address] [facility] [id number] [address] [place] [address] Mar, Essential hypertension I10 ; 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 ; Type 2 diabetes mellitus with hyperglycemia E11.65 ; 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.2 and Mixed hyperlipidemia E78.2 [facility] [address] [facility] [id number] [address] [place] [address] Feb, [facility] [address] [facility] [id number] [address] [place] [address] Feb, Type II or unspecified type diabetes mellitus with neurological manifestations, not stated as uncontrolled E11.49 ; Cough R05 ; Essential hypertension I10 ; Hyperglycemia R73.9 and Hematuria, unspecified type R31.9 [facility] [address] [facility] [id number] [address] [place] [address] Jan, HTN (hypertension) I10 ; Typ e 2 diabetes mellitus with diabetic chronic kidney disease, 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 and 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.2 [facility] [address] [facility] [id number] [address] [place] [address] Jan, [facility] [address] [facility] [id number] [address] [place] [address] Oct, Type 2 diabetes mellitus wit hout complications E11.9 [facility] [address] [facility] [id number] [address] [place] [address] July, Mixed hyperlipidemia E78.2 [facility] [address] [facility] [id number] [address] [place] [address] July, Type II or unspecified type diabetes mellitus with neurological manifestations, not stated as uncontrolled E11.49 ; Hyperglycemia R73.9 ; 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.2 and End stage renal disease N18.6 [facility] [address] [place] [id number] [address] [place] [address] Jun, [facility] [address] [id number] Apr, Type 2 diabetes mellitus wit h diabetic chronic kidney disease, 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 and Seizures R56.9 [place] [address] [address] Apr, Difficulty walking R26.2 [facility] [address] [address] Mar, Hyperglycemia R73.9 and [place] roenteritis K52.9 [place] [address] [address] July, Chronic renal failure, unspe cified stage N18.9 [place] [address] [address] Jun, [place] [address] [id number] Jun, Chronic renal failure, unspe cified stage N18.9 [place] [address] [place] [id number] [address] [place] [address] Jun, Chronic renal failure, unspe cified stage N18.9 and Leg pain, diffuse, unspecified laterality M79.606 [place] [address] [place] [id number] [address] [place] [address] May, [place] [address] [place] [id number] [address] [place] [address] May, [facility] [address] [address] May, [place] [address] [id number] May, Chronic renal failure, unspe cified stage N18.9 [place] [address] [place] [id number] [address] [place] [address] Apr, Chronic renal failure, unspe cified stage N18.9 [place] [address] [facility] [id number] [address] [place] [address] Mar, [place] [address] [place] [id number] [address] [place] [address] Mar, Kidney dysfunction N28.9 ; T ype 2 diabetes mellitus with diabetic chronic kidney disease, 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 ; Essential hypertension I10 ; Charcot ankle M14.679 and Chronic renal failure, unspecified stage N18.9 [place] [address] [place] [id number] [address] [place] [address] Dec, Kidney dysfunction N28.9 [place] [address] [place] [id number] [address] [place] [address] Nov, Type 2 diabetes mellitus wit hout complications E11.9 ; Essential hypertension I10 ; Charcot ankle M14.679 ; History of hypothyroidism Z86.39 and History of anemia Z86.2 [place] [address] [facility] [id number] [address] [place] [address] Oct, Type 2 diabetes mellitus wit h diabetic chronic kidney disease, 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 [place] [address] [place] [id number] [address] [place] [address] Oct, Onychocryptosis L60.0 ; Linda cot ankle M14.679 ; Pes planus M21.40 and Type 2 diabetes mellitus with diabetic chronic kidney disease, 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 [place] [address] [facility] [id number] [address] [place] [address] Sep, [place] [address] [place] [id number] [address] [place] [address] Sep, [place] [address] [place] [id number] [address] [place] [address] Aug, [place] [address] [place] [id number] [place] [address] 09 Aug, 2015 Type 2 diabetes mellitus wit h diabetic chronic kidney disease, 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 ; Essential hypertension I10 ; Charcot ankle M14.679 ; History of hypothyroidism Z86.39 and History of anemia Z86.2 [place] [address] [id number] 05 May, 2015 Acute kidney injury N17.9 ; Essential hypertension I10 and Type 2 diabetes mellitus with diabetic chronic kidney disease, 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 [place] [address] [id number] 22 Mar, 2015 Foot pain M79.673 ; Charcot ankle M14.679 and Pes planus M21.40 [place] [address] [address] 04 Feb, 2015 Left foot pain M79.672 ; Vera rcot ankle M14.679 and Type II or unspecified type diabetes mellitus with neurological manifestations, not stated as uncontrolled E11.49 [place] [address] [address] 15 Dec, 2014 Hypoglycemia, unspecified E1 6.2 [place] [address] [address] 14 Dec, 2014 Left foot pain M79.672 [place] [address] [address] 13 Dec, 2014 Pain in left foot M79.672 ; Other specified soft tissue disorders M79.89 and Type 2 diabetes mellitus with diabetic neuropathy E11.40 [place] [address] [address] 14 Jun, 2014 [place] [address] [address] Jun, [place] [address] [id number] 16 May, 2014 [facility] [address] [id number] [address] [place] [address], [place] [address] May, [facility] [address] [id number] [address] [place] [address], [place] [address] Apr, [facility] [address] [id number] [address] [place] [address], [place] [address] Apr, [facility] [address] [id number] [address] [place] [address], [place] [address] Apr, [facility] [address] [id number] [address] [place] [address], [place] [address] Apr, [facility] [address] [id number] [address] [place] [address], [place] [address] Mar, [facility] [address] [id number] [address] [place] [address], [place] [address] Mar, [facility] [address] [id number] [address] [place] [address], [place] [address] Feb, [facility] [address] [id number] [address] [place] [address], [place] [address] Feb, [facility] [address] [id number] [address] [place] [address], [place] [address] Feb, [facility] [address] [id number] [address] [place] [address], [place] [address] Feb, [facility] [address] [id number] [address] [place] [address], [place] [address] Oct, [facility] [address] [id number] [address] [place] [address], [place] [address] Oct, [facility] [address] [id number] [address] [place] [address], [place] [address] Oct, [facility] [address] [id number] [address] [place] [address], [place] [address] Oct, [facility] [address] [id number] [address] [place] [address], [place] [address] Oct, [facility] [address] [id number] [address] [place] [address], [place] [address] Oct, [facility] [address] [id number] [address] [place] [address], [place] [address] Oct, [facility] [address] [id number] [address] [place] [address], [place] [address] Oct, [facility] [address] [id number] [address] [place] [address], [place] [address] Aug, [facility] [address] [id number] [address] [place] [address], [place] [address] Aug, [facility] [address] [id number] [address] [place] [address], [place] [address] Apr, [facility] [address] [id number] [address] [place] [address], [place] [address] Apr, [facility] [address] [id number] [address] [place] [address], [place] [address] Apr, [facility] [address] [id number] [address] [place] [address], [place] [address] Apr, [facility] [address] [id number] [address] [place] [address], [place] [address] Apr, [facility] [address] [id number] [address] [place] [address], [place] [address] Apr, [facility] [address] [id number] [address] [place] [address], [place] [address] Apr, [facility] [address] [id number] [address] [place] [address], [place] [address] Apr, [facility] [address] [id number] [address] [place] [address], [place] [address] Mar, [facility] [address] [id number] [address] [place] [address], [place] [address] Mar, [facility] [address] [id number] [address] [place] [address] Mar, [facility] [address] [id number] [address] [place] [address] Mar, [facility] [address] [id number] [address] [place] [address] Mar, [facility] [address] [id number] [address] [place] [address] Mar, [facility] [address] [id number] [address] [place] [address] Mar, [facility] [address] [id number] [address] [place] [address] Mar, [facility] [address] [id number] [address] [place] [address] Mar, [facility] [address] [id number] [address] [place] [address] Mar, [facility] [address] [id number] [address] [place] [address] Mar, [facility] [address] [id number] [address] [place] [address] Mar, [facility] [address] [id number] [address] [place] [address] Feb, [facility] [address] [id number] [address] [place] [id number] Feb, [facility] [address] [id number] [address] [place] [id number] Feb, [facility] [address] [id number] [address] [place] [address] Feb, IMMUNIZATIONS No Known Immunizations SOCIAL HISTORY Never Assessed REASON FOR VISIT PLAN OF CARE VITAL SIGNS Height 64 in 2014-03-27 Weight 164.2 lbs 2014-03-27 Temperature 96.3 degrees Fahrenheit 2014-03-27 Heart Rate 80 bpm 2014-03-27 Respiratory Rate 18 2014-03-27 Blood pressure systolic 142 mmHg 2014-03-27 Blood pressure diastolic 80 mmHg 2014-03-27 MEDICATIONS No Known Medications RESULTS No Results [...]
--- OUTSIDE RECORDS SUMMARY | 2019-05-23 11:34 | XMS REPORT ---
Author Author Antoine POLLARD Organization 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 Active 8234310 Problem Eyqkqpo-Ecmcx-Tefol disease-like deformity of foot 356.1 Active 884419603 Problem Charcot foot due to diabetes mellitus E11.610 Active 52569264 Problem Charcot ankle M14.679 Active 696909 008 Problem Type II or unspecified type diabetes mellitus with neurological manifestations, not stated as uncontrolled E11.49 Active 73467313 Problem History of hypothyroidism Z86.39 Acti ve 867948636 Problem Type 2 diabetes mellitus without complications E11 .9 Active 417843748 Problem Chronic renal failure, unspecified stage N18.9 Active 19037756 Problem MCC current use of insulin Z79.4 Active 798136701 Problem Essential hypertension I10 Active 60872832 Problem Type 2 diabetes mellitus with hyperglycemia E11.65 Active 85646882 Problem Type 2 diabetes mellitus wit h diabetic chronic kidney disease, 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 Active 549704 003 Problem Difficulty walking R26.2 Active 7 77674376 Problem 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.2 A ctive 333674904 Problem End stage renal disease N18.6 Active 733089265 Problem Mixed hyperlipidemia E78.2 Active [id number] ALLERGIES No Information ENCOUNTERS Encounter Location Date Diagnosis [place] [id number] [facility] [id number] [address] [address] Sep, Type 2 diabetes mellitus wit h hyperglycemia E11.65 ; Essential hypertension I10 ; Chronic renal failure, unspecified stage N18.9 [address]lipidemia E78.2 [facility] [address] [facility] [id number] [address] [place] [address] Aug, [facility] [address] [facility] [id number] [address] [place] [address] Jun, [facility] [address] 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 [address] [facility] [id number] [address] [place] [address] Feb, [facility] [address] [facility] [id number] [address] [place] [address] Feb, Type II or unspecified type diabetes mellitus with neurological manifestations, not stated as uncontrolled E11.49 ; Cough R05 ; Essential hypertension I10 ; Hyperglycemia R73.9 and Hematuria, unspecified type R31.9 [facility] [address] [facility] [id number] [address] [place] [address] Jan, HTN (hypertension) I10 ; Typ e 2 diabetes mellitus with diabetic chronic kidney disease, 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 and 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.2 [facility] [address] [facility] [id number] [address] [place] [address] Jan, [facility] [address] [facility] [id number] [address] [place] [address] Oct, Type 2 diabetes mellitus wit hout complications E11.9 [facility] [address] [facility] [id number] [address] [place] [address] July, Mixed hyperlipidemia E78.2 [facility] [address] [facility] [id number] [address] [place] [address] July, Type II or unspecified type diabetes mellitus with neurological manifestations, not stated as uncontrolled E11.49 ; Hyperglycemia R73.9 ; 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.2 and End stage renal disease N18.6 [facility] [address] [place] [id number] [place] [address] Jun, [facility] [address] [address] Apr, Type 2 diabetes mellitus wit h diabetic chronic kidney disease, 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 and Seizures R56.9 [place] [address] [address] Apr, Difficulty walking R26.2 [facility] [address] [address] Mar, Hyperglycemia R73.9 and [place] roenteritis K52.9 [place] [address] [address] July, Chronic renal failure, unspe cified stage N18.9 [place] [address] [address] Jun, [place] [address] [address] Jun, Chronic renal failure, unspe cified stage N18.9 [place] [address] [place] [id number] [address] [place] [address] Jun, Chronic renal failure, unspe cified stage N18.9 and Leg pain, diffuse, unspecified laterality M79.606 [place] [address] [place] [id number] [address] [place] [address] May, [place] [address] [place] [id number] [address] [place] [address] May, [facility] [address] [address] May, [place] [address] [address] May, Chronic renal failure, unspe cified stage N18.9 [place] [address] [address] [place] [id number] [address] [place] [address] Apr, Chronic renal failure, unspe cified stage N18.9 [place] [address] [facility] [id number] [address] [place] [address] Mar, [place] [address] [place] [id number] [address] [place] [address] Mar, Kidney dysfunction N28.9 ; T ype 2 diabetes mellitus with diabetic chronic kidney disease, 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 ; Essential hypertension I10 ; Charcot ankle M14.679 and Chronic renal failure, unspecified stage N18.9 [place] [address] [address] [place] [id number] [address] [place] [address] Dec, Kidney dysfunction N28.9 [place] [address] [place] [id number] [address] [place] [address] Nov, Type 2 diabetes mellitus wit hout complications E11.9 ; Essential hypertension I10 ; Charcot ankle M14.679 ; History of hypothyroidism Z86.39 and History of anemia Z86.2 [place] [address] [facility] [id number] [address] [place] [address] Oct, Type 2 diabetes mellitus wit h diabetic chronic kidney disease, 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 [place] [address] [address] [place] [id number] [address] [place] [address] Oct, Onychocryptosis L60.0 ; Linda cot ankle M14.679 ; Pes planus M21.40 and Type 2 diabetes mellitus with diabetic chronic kidney disease, 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 [place] [address] [facility] [id number] [address] [place] [address] Sep, [place] [address] [place] [id number] [address] [place] [address] Sep, [place] [address] [place] [id number] [address] [place] [address] Aug, [place] [address] [place] [id number] [place] [address] 09 Aug, 2015 Type 2 diabetes mellitus wit h diabetic chronic kidney disease, 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 ; Essential hypertension I10 ; Charcot ankle M14.679 ; History of hypothyroidism Z86.39 and History of anemia Z86.2 [place] [address] [address] 05 May, 2015 Acute kidney injury N17.9 ; Essential hypertension I10 and Type 2 diabetes mellitus with diabetic chronic kidney disease, 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 [place] [address] [address] 22 Mar, 2015 Foot pain M79.673 ; Charcot ankle M14.679 and Pes planus M21.40 [place] [address] [address] 04 Feb, 2015 Left foot pain M79.672 ; Vera rcot ankle M14.679 and Type II or unspecified type diabetes mellitus with neurological manifestations, not stated as uncontrolled E11.49 [place] [address] [address] 15 Dec, 2014 Hypoglycemia, unspecified E1 6.2 [place] [address] [address] 14 Dec, 2014 Left foot pain M79.672 [place] [address] [address] 13 Dec, 2014 Pain in left foot M79.672 ; Other specified soft tissue disorders M79.89 and Type 2 diabetes mellitus with diabetic neuropathy E11.40 [place] [address] [address] 14 Jun, 2014 [place] [address] [address] Jun, [place] [address] [address] 16 May, 2014 [facility] [address] [id number] [address] [place] [address], [place] [address] May, [facility] [address] [id number] [address] [place] [address], [place] [address] Apr, [facility] [address] [id number] [address] [place] [address], [place] [address] Apr, [facility] [address] [id number] [address] [place] [address], [place] [address] Apr, [facility] [address] [id number] [address] [place] [address], [place] [address] Apr, [facility] [address] [id number] [address] [place] [address], [place] [address] Mar, [facility] [address] [id number] [address] [place] [address], [place] [address] Mar, [facility] [address] [id number] [address] [place] [address], [place] [address] Feb, [facility] [address] [id number] [address] [place] [address], [place] [address] Feb, [facility] [address] [id number] [address] [place] [address], [place] [address] Feb, [facility] [address] [id number] [address] [place] [address], [place] [address] Feb, [facility] [address] [id number] [address] [place] [address], [place] [address] Oct, [facility] [address] [id number] [address] [place] [address], [place] [address] Oct, [facility] [address] [id number] [address] [place] [address], [place] [address] Oct, [facility] [address] [id number] [address] [place] [address], [place] [address] Oct, [facility] [address] [id number] [address] [place] [address], [place] [address] Oct, [facility] [address] [id number] [address] [place] [address], [place] [address] Oct, [facility] [address] [id number] [address] [place] [address], [place] [address] Oct, [facility] [address] [id number] [address] [place] [address], [place] [address] Oct, [facility] [address] [id number] [address] [place] [address], [place] [address] Aug, [facility] [address] [id number] [address] [place] [address], [place] [address] Aug, [facility] [address] [id number] [address] [place] [address], [place] [address] Apr, [facility] [address] [id number] [address] [place] [address], [place] [address] Apr, [facility] [address] [id number] [address] [place] [address], [place] [address] Apr, [facility] [address] [id number] [address] [place] [address], [place] [address] Apr, [facility] [address] [id number] [address] [place] [address], [place] [address] Apr, [facility] [address] [id number] [address] [place] [address], [place] [address] Apr, [facility] [address] [id number] [address] [place] [address], [place] [address] Apr, [facility] [address] [id number] [address] [place] [address], [place] [address] Apr, [facility] [address] [id number] [address] [place] [address], [place] [address] Mar, [facility] [address] [id number] [address] [place] [address], [place] [address] Mar, [facility] [address] [id number] [address] [place] [address] Mar, [facility] [address] [id number] [address] [place] [address] Mar, [facility] [address] [id number] [address] [place] [phone] Mar, [facility] [address] [id number] [address] [place] [address] Mar, [facility] [address] [id number] [address] [place] [phone] Mar, [facility] [address] [id number] [address] [place] [address] Mar, [facility] [address] [id number] [address] [place] [phone] Mar, [facility] [address] [id number] [address] [place] [phone] Mar, [facility] [address] [id number] [address] [place] [address] Mar, [facility] [address] [id number] [address] [place] [address] Mar, [facility] [address] [id number] [address] [place] [phone] Feb, [facility] [address] [id number] [address] [place] [phone] Feb, [facility] [address] [id number] [address] [place] [phone] Feb, [facility] [address] [id number] [address] [place] [id number] Feb, IMMUNIZATIONS No Known Immunizations SOCIAL HISTORY [...]
--- OUTSIDE RECORDS SUMMARY | 2019-05-23 11:34 | XMS REPORT ---
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 Active 5249148 Problem Sjdgohr-Afyit-Ymaws disease-like deformity of foot 356.1 Active 841254146 Problem Charcot foot due to diabetes mellitus E11.610 Active 71929810 Problem Charcot ankle M14.679 Active 755895 008 Problem Type II or unspecified type diabetes mellitus with neurological manifestations, not stated as uncontrolled E11.49 Active 20638935 Problem History of hypothyroidism Z86.39 Acti ve 167013231 Problem Type 2 diabetes mellitus without complications E11 .9 Active 237069625 Problem Chronic renal failure, unspecified stage N18.9 Active 22171277 Problem halfway current use of insulin Z79.4 Active 710355261 Problem Essential hypertension I10 Active 01127734 Problem Type 2 diabetes mellitus with hyperglycemia E11.65 Active 73534346 Problem Type 2 diabetes mellitus wit h diabetic chronic kidney disease, 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 Active 955449 003 Problem Difficulty walking R26.2 Active 7 50599731 Problem 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.2 A ctive 947309814 Problem End stage renal disease N18.6 Active 741713717 Problem Mixed hyperlipidemia E78.2 Active [id number] ALLERGIES No Information ENCOUNTERS Encounter Location Date Diagnosis [place] [id number] [facility] [id number] [address] [address] Sep, Type 2 diabetes mellitus wit h hyperglycemia E11.65 ; Essential hypertension I10 ; Chronic renal failure, unspecified stage N18.9 and Mixed hyperlipidemia E78.2 [facility] [address] [facility] [id number] [address] [place] [address] Aug, [facility] [address] [facility] [id number] [address] [place] [address] Jun, [facility] [address] [facility] [id number] [address] [place] [address] Mar, Essential hypertension I10 ; 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 ; Type 2 diabetes mellitus with hyperglycemia E11.65 ; 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.2 and Mixed hyperlipidemia E78.2 [facility] [address] [facility] [id number] [address] [place] [address] Feb, [facility] [address] [facility] [id number] [address] [place] [address] Feb, Type II or unspecified type diabetes mellitus with neurological manifestations, not stated as uncontrolled E11.49 ; Cough R05 ; Essential hypertension I10 ; Hyperglycemia R73.9 and Hematuria, unspecified type R31.9 [facility] [address] [facility] [id number] [address] [place] [address] Jan, HTN (hypertension) I10 ; Typ e 2 diabetes mellitus with diabetic chronic kidney disease, 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 and 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.2 [facility] [address] [facility] [id number] [address] [place] [address] Jan, [facility] [address] [facility] [id number] [address] [place] [address] Oct, Type 2 diabetes mellitus wit hout complications E11.9 [facility] [address] [facility] [id number] [address] [place] [address] July, Mixed hyperlipidemia E78.2 [facility] [address] [facility] [id number] [address] [place] [address] July, Type II or unspecified type diabetes mellitus with neurological manifestations, not stated as uncontrolled E11.49 ; Hyperglycemia R73.9 ; 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.2 and End stage renal disease N18.6 [facility] [address] [place] [id number] [address] [place] [address] Jun, [facility] [address] [address] Apr, Type 2 diabetes mellitus wit h diabetic chronic kidney disease, 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 and Seizures R56.9 [place] [address] [id number] Apr, Difficulty walking R26.2 [facility] [address] [address] Mar, Hyperglycemia R73.9 and Zion roenteritis K52.9 [place] [address] [address] July, Chronic renal failure, unspe cified stage N18.9 [place] [address] [address] Jun, [place] [address] [address] Jun, Chronic renal failure, unspe cified stage N18.9 [place] [address] [place] [id number] [address] [place] [address] Jun, Chronic renal failure, unspe cified stage N18.9 and Leg pain, diffuse, unspecified laterality M79.606 [place] [address] [place] [id number] [address] [place] [address] May, [place] [address] [place] [id number] [address] [place] [address] May, [facility] [address] [address] May, [place] [address] [address] May, Chronic renal failure, unspe cified stage N18.9 [place] [address] [place] [id number] [address] [place] [address] Apr, Chronic renal failure, unspe cified stage N18.9 [place] [address] [facility] [id number] [address] [place] [address] Mar, [place] [address] [place] [id number] [address] [place] [address] Mar, Kidney dysfunction N28.9 ; T ype 2 diabetes mellitus with diabetic chronic kidney disease, 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 ; Essential hypertension I10 ; Charcot ankle M14.679 and Chronic renal failure, unspecified stage N18.9 [place] [address] [place] [id number] [address] [place] [address] Dec, Kidney dysfunction N28.9 [place] [address] [place] [id number] [address] [place] [address] Nov, Type 2 diabetes mellitus wit hout complications E11.9 ; Essential hypertension I10 ; Charcot ankle M14.679 ; History of hypothyroidism Z86.39 and History of anemia Z86.2 [place] [address] [facility] [id number] [address] [place] [address] Oct, Type 2 diabetes mellitus wit h diabetic chronic kidney disease, 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 [place] [address] [address] [place] [id number] [address] [place] [address] Oct, Onychocryptosis L60.0 ; Linda cot ankle M14.679 ; Pes planus M21.40 and Type 2 diabetes mellitus with diabetic chronic kidney disease, 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 [place] [address] [facility] [id number] [address] [place] [address] Sep, [place] [address] [place] [id number] [address] [place] [address] Sep, [place] [address] [place] [id number] [address] [place] [address] Aug, [place] [address] [place] [id number] [place] [address] 09 Aug, 2015 Type 2 diabetes mellitus wit h diabetic chronic kidney disease, 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 ; Essential hypertension I10 ; Charcot ankle M14.679 ; History of hypothyroidism Z86.39 and History of anemia Z86.2 [place] [address] [id number] 05 May, 2015 Acute kidney injury N17.9 ; Essential hypertension I10 and Type 2 diabetes mellitus with diabetic chronic kidney disease, 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 [place] [address] [address] 22 Mar, 2015 Foot pain M79.673 ; Charcot ankle M14.679 and Pes planus M21.40 [place] [address] [address] 04 Feb, 2015 Left foot pain M79.672 ; Vera rcot ankle M14.679 and Type II or unspecified type diabetes mellitus with neurological manifestations, not stated as uncontrolled E11.49 [place] [address] [id number] 15 Dec, 2014 Hypoglycemia, unspecified E1 6.2 [place] [address] [address] 14 Dec, 2014 Left foot pain M79.672 [place] [address] [address] 13 Dec, 2014 Pain in left foot M79.672 ; Other specified soft tissue disorders M79.89 and Type 2 diabetes mellitus with diabetic neuropathy E11.40 [place] [address] [address] 14 Jun, 2014 [place] [address] [address] Jun, [place] [address] [address] 16 May, 2014 [facility] [address] [id number] [address] [place] [address], [place] [address] May, [facility] [address] [id number] [address] [place] [address], [place] [address] Apr, [facility] [address] [id number] [address] [place] [address], [place] [address] Apr, [facility] [address] [id number] [address] [place] [address], [place] [address] Apr, [facility] [address] [id number] [address] [place] [address], [place] [address] Apr, [facility] [address] [id number] [address] [place] [address], [place] [address] Mar, [facility] [address] [id number] [address] [place] [address], [place] [address] Mar, [facility] [address] [id number] [address] [place] [address], [place] [address] Feb, [facility] [address] [id number] [address] [place] [address], [place] [address] Feb, [facility] [address] [id number] [address] [place] [address], [place] [address] Feb, [facility] [address] [id number] [address] [place] [address], [place] [address] Feb, [facility] [address] [id number] [address] [place] [address], [place] [address] Oct, [facility] [address] [id number] [address] [place] [address], [place] [address] Oct, [facility] [address] [id number] [address] [place] [address], [place] [address] Oct, [facility] [address] [id number] [address] [place] [address], [place] [address] Oct, [facility] [address] [id number] [address] [place] [address], [place] [address] Oct, [facility] [address] [id number] [address] [place] [address], [place] [address] Oct, [facility] [address] [id number] [address] [place] [address], [place] [address] Oct, [facility] [address] [id number] [address] [place] [address], [place] [address] Oct, [facility] [address] [id number] [address] [place] [address], [place] [address] Aug, [facility] [address] [id number] [address] [place] [address], [place] [address] Aug, [facility] [address] [id number] [address] [place] [address], [place] [address] Apr, [facility] [address] [id number] [address] [place] [address], [place] [address] Apr, [facility] [address] [id number] [address] [place] [address], [place] [address] Apr, [facility] [address] [id number] [address] [place] [address], [place] [address] Apr, [facility] [address] [id number] [address] [place] [address], [place] [address] Apr, [facility] [address] [id number] [address] [place] [address], [place] [address] Apr, [facility] [address] [id number] [address] [place] [address], [place] [address] Apr, [facility] [address] [id number] [address] [place] [address], [place] [address] Apr, [facility] [address] [id number] [address] [place] [address], [place] [address] Mar, [facility] [address] [id number] [address] [place] [address], [place] [address] Mar, [facility] [address] [id number] [address] [place] [address] Mar, [facility] [address] [id number] [address] [place] [address] Mar, [facility] [address] [id number] [address] [place] [address] Mar, [facility] [address] [id number] [address] [place] [address] Mar, [facility] [address] [id number] [address] [place] [phone] Mar, [facility] [address] [id number] [address] [place] [address] Mar, [facility] [address] [id number] [address] [place] [address] Mar, [facility] [address] [id number] [address] [place] [address] Mar, [facility] [address] [id number] [address] [place] [address] Mar, [facility] [address] [id number] [address] [place] [address] Mar, [facility] [address] [id number] [address] [place] [address] Feb, [facility] [address] [id number] [address] [place] [phone] Feb, [facility] [address] [id number] [address] [place] [phone] Feb, [facility] [address] [id number] [address] [place] [address] Feb, IMMUNIZATIONS No Known Immunizations SOCIAL HISTORY [...]
--- OUTSIDE RECORDS SUMMARY | 2019-05-23 11:34 | XMS REPORT ---
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 Active 3220626 Problem Sknlkdr-Tfeqa-Jdneu disease-like deformity of foot 356.1 Active 541299587 Problem Charcot foot due to diabetes mellitus E11.610 Active 27482378 Problem Charcot ankle M14.679 Active 668152 008 Problem Type II or unspecified type diabetes mellitus with neurological manifestations, not stated as uncontrolled E11.49 Active 00918280 Problem History of hypothyroidism Z86.39 Acti ve 220921631 Problem Type 2 diabetes mellitus without complications E11 .9 Active 300423934 Problem Chronic renal failure, unspecified stage N18.9 Active 78196627 Problem assisted current use of insulin Z79.4 Active 126300266 Problem Essential hypertension I10 Active 67043466 Problem Type 2 diabetes mellitus with hyperglycemia E11.65 Active 58122629 Problem Type 2 diabetes mellitus wit h diabetic chronic kidney disease, 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 Active 677877 003 Problem Difficulty walking R26.2 Active 7 17519253 Problem 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.2 A ctive 870310320 Problem End stage renal disease N18.6 Active 436292724 Problem Mixed hyperlipidemia E78.2 Active [id number] ALLERGIES No Information ENCOUNTERS Encounter Location Date Diagnosis [place] [id number] [facility] [id number] [address] [address] Sep, Type 2 diabetes mellitus wit h hyperglycemia E11.65 ; Essential hypertension I10 ; Chronic renal failure, unspecified stage N18.9 and Mixed hyperlipidemia E78.2 [facility] [place] [address] [facility] [id number] [address] [place] [address] Aug, [facility] [place] [address] [facility] [id number] [address] [place] [address] Jun, [facility] [place] [address] [facility] [id number] [address] [place] [address] Mar, Essential hypertension I10 ; 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 ; Type 2 diabetes mellitus with hyperglycemia E11.65 ; 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.2 and Mixed hyperlipidemia E78.2 [facility] [place] [address] [facility] [id number] [address] [place] [address] Feb, [facility] [place] [address] [facility] [id number] [address] [place] [address] Feb, Type II or unspecified type diabetes mellitus with neurological manifestations, not stated as uncontrolled E11.49 ; Cough R05 ; Essential hypertension I10 ; Hyperglycemia R73.9 and Hematuria, unspecified type R31.9 [facility] [address] [facility] [id number] [address] [place] [address] Jan, HTN (hypertension) I10 ; Typ e 2 diabetes mellitus with diabetic chronic kidney disease, 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 and 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.2 [facility] [place] [address] [facility] [id number] [address] [place] [address] Jan, [facility] [place] [address] [facility] [id number] [address] [place] [address] Oct, Type 2 diabetes mellitus wit hout complications E11.9 [facility] [place] [address] [facility] [id number] [address] [place] [address] July, Mixed hyperlipidemia E78.2 [facility] [place] [address] [facility] [id number] [address] [place] [address] July, Type II or unspecified type diabetes mellitus with neurological manifestations, not stated as uncontrolled E11.49 ; Hyperglycemia R73.9 ; 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.2 and End stage renal disease N18.6 [facility] [place] [address] [place] [id number] [address] [place] [address] Jun, [facility] [place] [address] [address] Apr, Type 2 diabetes mellitus wit h diabetic chronic kidney disease, 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 and Seizures R56.9 [place] [address] [address] Apr, Difficulty walking R26.2 [facility] [address] [address] Mar, Hyperglycemia R73.9 and Zion roenteritis K52.9 [place] [address] [address] July, Chronic renal failure, unspe cified stage N18.9 [place] [address] [address] Jun, [place] [address] [address] Jun, Chronic renal failure, unspe cified stage N18.9 [place] [address] [place] [id number] [address] [place] [address] Jun, Chronic renal failure, unspe cified stage N18.9 and Leg pain, diffuse, unspecified laterality M79.606 [place] [address] [place] [id number] [address] [place] [address] May, [place] [address] [place] [id number] [address] [place] [address] May, [facility] [address] [address] May, [place] [address] [address] May, Chronic renal failure, unspe cified stage N18.9 [place] [address] [place] [id number] [address] [place] [address] Apr, Chronic renal failure, unspe cified stage N18.9 [place] [address] [facility] [id number] [address] [place] [address] Mar, [place] [address] [place] [id number] [address] [place] [address] Mar, Kidney dysfunction N28.9 ; T ype 2 diabetes mellitus with diabetic chronic kidney disease, 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 ; Essential hypertension I10 ; Charcot ankle M14.679 and Chronic renal failure, unspecified stage N18.9 [place] [address] [place] [id number] [address] [place] [address] Dec, Kidney dysfunction N28.9 [place] [address] [place] [id number] [address] [place] [address] Nov, Type 2 diabetes mellitus wit hout complications E11.9 ; Essential hypertension I10 ; Charcot ankle M14.679 ; History of hypothyroidism Z86.39 and History of anemia Z86.2 [place] [address] [facility] [id number] [address] [place] [address] Oct, Type 2 diabetes mellitus wit h diabetic chronic kidney disease, 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 [place] [address] [place] [id number] [address] [place] [address] Oct, Onychocryptosis L60.0 ; Linda cot ankle M14.679 ; Pes planus M21.40 and Type 2 diabetes mellitus with diabetic chronic kidney disease, 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 [place] [address] [facility] [id number] [address] [place] [address] Sep, [place] [address] [place] [id number] [address] [place] [address] Sep, [place] [address] [place] [id number] [address] [place] [address] Aug, [place] [address] [place] [id number] [place] [address] 09 Aug, 2015 Type 2 diabetes mellitus wit h diabetic chronic kidney disease, 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 ; Essential hypertension I10 ; Charcot ankle M14.679 ; History of hypothyroidism Z86.39 and History of anemia Z86.2 [place] [id number] [id number] 05 May, 2015 Acute kidney injury N17.9 ; Essential hypertension I10 and Type 2 diabetes mellitus with diabetic chronic kidney disease, 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 [place] [address] [address] 22 Mar, 2015 Foot pain M79.673 ; Charcot ankle M14.679 and Pes planus M21.40 [place] [address] [address] 04 Feb, 2015 Left foot pain M79.672 ; Vera rcot ankle M14.679 and Type II or unspecified type diabetes mellitus with neurological manifestations, not stated as uncontrolled E11.49 [place] [address] [address] 15 Dec, 2014 Hypoglycemia, unspecified E1 6.2 [place] [address] [address] 14 Dec, 2014 Left foot pain M79.672 [place] [address] [address] 13 Dec, 2014 Pain in left foot M79.672 ; Other specified soft tissue disorders M79.89 and Type 2 diabetes mellitus with diabetic neuropathy E11.40 [place] [address] [address] 14 Jun, 2014 [place] [address] [address] Jun, [place] [address] [address] 16 May, 2014 [facility] [address] [id number] [address] [place] [address], [place] [address] May, [facility] [address] [id number] [address] [place] [address], [place] [address] Apr, [facility] [address] [id number] [address] [place] [address], [place] [address] Apr, [facility] [address] [id number] [address] [place] [address], [place] [address] Apr, [facility] [address] [id number] [address] [place] [address], [place] [address] Apr, [facility] [address] [id number] [address] [place] [address], [place] [address] Mar, [facility] [address] [id number] [address] [place] [address], [place] [address] Mar, [facility] [address] [id number] [address] [place] [address], [place] [address] Feb, [facility] [address] [id number] [address] [place] [address], [place] [address] Feb, [facility] [address] [id number] [address] [place] [address], [place] [address] Feb, [facility] [address] [id number] [address] [place] [address], [place] [address] Feb, [facility] [address] [id number] [address] [place] [address], [place] [address] Oct, [facility] [address] [id number] [address] [place] [address], [place] [address] Oct, [facility] [address] [id number] [address] [place] [address], [place] [address] Oct, [facility] [address] [id number] [address] [place] [address], [place] [address] Oct, [facility] [address] [id number] [address] [place] [address], [place] [address] Oct, [facility] [address] [id number] [address] [place] [address], [place] [address] Oct, [facility] [address] [id number] [address] [place] [address], [place] [address] Oct, [facility] [address] [id number] [address] [place] [address], [place] [address] Oct, [facility] [address] [id number] [address] [place] [address], [place] [address] Aug, [facility] [address] [id number] [address] [place] [address], [place] [address] Aug, [facility] [address] [id number] [address] [place] [address], [place] [address] Apr, [facility] [address] [id number] [address] [place] [address], [place] [address] Apr, [facility] [address] [id number] [address] [place] [address], [place] [address] Apr, [facility] [address] [id number] [address] [place] [address], [place] [address] Apr, [facility] [address] [id number] [address] [place] [address], [place] [address] Apr, [facility] [address] [id number] [address] [place] [address], [place] [address] Apr, [facility] [address] [id number] [address] [place] [address], [place] [address] Apr, [facility] [address] [id number] [address] [place] [address], [place] [address] Apr, [facility] [address] [id number] [address] [place] [address], [place] [address] Mar, [facility] [address] [id number] [address] [place] [address], [place] [address] Mar, [facility] [place] [address] [id number] [address] [place] [address] Mar, [facility] [address] [id number] [address] [place] [address] Mar, [facility] [address] [id number] [address] [place] [address] Mar, [facility] [address] [id number] [address] [place] [address] Mar, [facility] [place] [address] [id number] [address] [place] [address] Mar, [facility] [address] [id number] [address] [place] [address] Mar, [facility] [address] [id number] [address] [place] [address] Mar, [facility] [address] [id number] [address] [place] [address] Mar, [facility] [address] [id number] [address] [place] [address] Mar, [facility] [address] [id number] [address] [place] [address] Mar, [facility] [address] [id number] [address] [place] [address] Feb, [facility] [place] [address] [id number] [address] [place] [address] Feb, [facility] [place] [address] [id number] [address] [place] [address] Feb, [facility] [address] [id number] [address] [place] [address] Feb, IMMUNIZATIONS No Known Immunizations SOCIAL HISTORY [...]
--- OUTSIDE RECORDS SUMMARY | 2019-05-23 11:35 | XMS REPORT ---
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 Active 7473057 Problem Bpclzcz-Pmbme-Ydivj disease-like deformity of foot 356.1 Active 429678621 Problem Charcot foot due to diabetes mellitus E11.610 Active 19310843 Problem Charcot ankle M14.679 Active 925602 008 Problem Type II or unspecified type diabetes mellitus with neurological manifestations, not stated as uncontrolled E11.49 Active 23305667 Problem History of hypothyroidism Z86.39 Acti ve 055986189 Problem Type 2 diabetes mellitus without complications E11 .9 Active 276670376 Problem Chronic renal failure, unspecified stage N18.9 Active 54919585 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 Active 334151031 Problem Essential hypertension I10 Active 29498179 Problem Type 2 diabetes mellitus with hyperglycemia E11.65 Active 65640105 Problem Type 2 diabetes mellitus wit h diabetic chronic kidney disease, 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 Active 832348 003 Problem Difficulty walking R26.2 Active 7 84537894 Problem 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.2 A ctive 147791869 Problem End stage renal disease N18.6 Active 473818229 Problem Mixed hyperlipidemia E78.2 Active 482423528 ALLERGIES No Information ENCOUNTERS Encounter Location Date Diagnosis [facility] [address] [facility] [id number] [address] [place] [id number] Mar, Essential hypertension I10 ; 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 ; Type 2 diabetes mellitus with hyperglycemia E11.65 ; 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.2 and Mixed hyperlipidemia E78.2 [facility] [address] [facility] [id number] [address] [place] [phone] Feb, [facility] [address] [facility] [id number] [address] [place] [phone] Feb, Type II or unspecified type diabetes mellitus with neurological manifestations, not stated as uncontrolled E11.49 ; Cough R05 ; Essential hypertension I10 ; Hyperglycemia R73.9 and Hematuria, unspecified type R31.9 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.2 [facility] [address] [facility] [id number] [address] [place] [phone] Jan, [facility] [address] [facility] [id number] [address] [place] [phone] Oct, Type 2 diabetes mellitus wit hout complications E11.9 [facility] [address] [facility] [id number] [address] [place] [phone] July, Mixed hyperlipidemia E78.2 [facility] [address] [facility] [id number] [address] [place] [phone] July, Type II or unspecified type diabetes mellitus with neurological manifestations, not stated as uncontrolled E11.49 ; Hyperglycemia R73.9 ; 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.2 and End stage renal disease N18.6 [facility] [address] [facility] [id number] [address] [place] [phone] Jun, [facility] [address] [facility] [id number] [address] [place] [phone] Apr, Type 2 diabetes mellitus wit h diabetic chronic kidney disease, 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 and Seizures R56.9 [facility] [address] [facility] [id number] [address] [place] [id number] 13 Apr, 2017 Difficulty walking R26.2 [facility] [address] [facility] [id number] [address] [place] [phone] Mar, Hyperglycemia R73.9 and Zion roenteritis K52.9 [facility] [address] [facility] [id number] [address] [place] [phone] July, Chronic renal failure, unspe cified stage N18.9 [facility] [address] [facility] [id number] [address] [place] [phone] Jun, [facility] [address] [place] [id number] [address] [place] [id number] Jun, Chronic renal failure, unspe cified stage N18.9 [facility] [address] [facility] [id number] [address] [place] [id number] Jun, Chronic renal failure, unspe cified stage N18.9 and Leg pain, diffuse, unspecified laterality M79.606 [facility] [address] [place] [id number] [address] [place] [id number] May, [facility] [address] [place] [id number] [address] [place] [phone] May, [facility] [address] [facility] [id number] [address] [place] [phone] May, [facility] [address] [place] [id number] [address] [place] [phone] May, Chronic renal failure, unspe cified stage N18.9 [facility] [address] [facility] [id number] [address] [place] [id number] Apr, Chronic renal failure, unspe cified stage N18.9 [facility] [address] [facility] [id number] [address] [place] [id number] Mar, [facility] [address] [place] [id number] [address] [place] [phone] Mar, Kidney dysfunction N28.9 ; T ype 2 diabetes mellitus with diabetic chronic kidney disease, 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 ; Essential hypertension I10 ; Charcot ankle M14.679 and Chronic renal failure, unspecified stage N18.9 [facility] [address] [address] Dec, Kidney dysfunction N28.9 [facility] [address] [address] Nov, Type 2 diabetes mellitus wit hout complications E11.9 ; Essential hypertension I10 ; Charcot ankle M14.679 ; History of hypothyroidism Z86.39 and History of anemia Z86.2 [facility] [address] [address] Oct, Type 2 diabetes mellitus wit h diabetic chronic kidney disease, 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 [address] Oct, Onychocryptosis L60.0 ; Linda cot ankle M14.679 ; Pes planus M21.40 and Type 2 diabetes mellitus with diabetic chronic kidney disease, 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 [facility] [address] [address] Sep, [facility] [address] [address] Sep, [facility] [address] [address] Aug, [facility] [address] [address] Aug, Type 2 diabetes mellitus wit h diabetic chronic kidney disease, 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 ; Essential hypertension I10 ; Charcot ankle M14.679 ; History of hypothyroidism Z86.39 and History of anemia Z86.2 [facility] [address] [address] May, Acute kidney injury N17.9 ; Essential hypertension I10 and Type 2 diabetes mellitus with diabetic chronic kidney disease, 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 [address] Mar, Foot pain M79.673 ; Charcot ankle M14.679 and Pes planus M21.40 [facility] [address] [facility] [id number] [address] [place] [id number] 04 Feb, 2015 Left foot pain M79.672 ; Vera rcot ankle M14.679 and Type II or unspecified type diabetes mellitus with neurological manifestations, not stated as uncontrolled E11.49 [facility] [address] [facility] [id number] [address] [place] [id number] 15 Dec, 2014 Hypoglycemia, unspecified E1 6.2 [facility] [address] [facility] [id number] [address] [place] [id number] Dec, Left foot pain M79.672 [facility] [address] [place] [id number] [place] [id number] 13 Dec, 2014 Pain in left foot M79.672 ; Other specified soft tissue disorders M79.89 and Type 2 diabetes mellitus with diabetic neuropathy E11.40 [facility] [address] [facility] [id number] [address] [place] [id number] Jun, [facility] [address] [facility] [id number] [address] [place] [phone] Jun, [facility] [address] [place] [id number] [address] [place] [phone] May, [facility] [address] [facility] [id number] [address] [place] [id number] May, [facility] [address] [facility] [id number] [address] [place] [phone] Apr, [facility] [address] [facility] [id number] [address] [place] [phone] Apr, [facility] [address] [facility] [id number] [address] [place] [phone] Apr, [facility] [address] [facility] [id number] [address] [place] [phone] Apr, [facility] [address] [id number] [address] [place] [address], [place] [address] Mar, [facility] [address] [id number] [address] [place] [address], [place] [address] Mar, [facility] [address] [id number] [address] [place] [address], [place] [address] Feb, [facility] [address] [id number] [address] [place] [address], [place] [address] Feb, [facility] [address] [id number] [address] [place] [address], [place] [address] Feb, [facility] [address] [id number] [address] [place] [address], [place] [address] Feb, [facility] [address] [id number] [address] [place] [address], [place] [address] Oct, [facility] [address] [id number] [address] [place] [address], [place] [address] Oct, [facility] [address] [id number] [address] [place] [address], [place] [address] Oct, [facility] [address] [id number] [address] [place] [address], [place] [address] Oct, [facility] [address] [id number] [address] [place] [address], [place] [address] Oct, [facility] [address] [id number] [address] [place] [address], [place] [address] Oct, [facility] [address] [id number] [address] [place] [address], [place] [address] Oct, [facility] [address] [id number] [address] [place] [address], [place] [address] Oct, [facility] [address] [id number] [address] [place] [address], [place] [address] Aug, [facility] [address] [id number] [address] [place] [address], [place] [address] Aug, [facility] [address] [id number] [address] [place] [address], [place] [address] Apr, [facility] [address] [id number] [address] [place] [address], [place] [address] Apr, [facility] [address] [id number] [address] [place] [address], [place] [address] Apr, [facility] [address] [id number] [address] [place] [address], [place] [address] Apr, [facility] [address] [id number] [address] [place] [address], [place] [address] Apr, [facility] [address] [id number] [address] [place] [address], [place] [address] Apr, [facility] [address] [id number] [address] [place] [address], [place] [address] Apr, [facility] [address] [id number] [address] [place] [address], [place] [address] Apr, [facility] [address] [id number] [address] [place] [address], [place] [address] Mar, [facility] [address] [id number] [address] [place] [address], [place] [address] Mar, [facility] [address] [id number] [address] [place] [address], [place] [address] Mar, [facility] [address] [id number] [address] [place] [address], [place] [address] Mar, [facility] [address] [id number] [address] [place] [address], [place] [address] Mar, [facility] [address] [id number] [address] [place] [address], [place] [address] Mar, [facility] [address] [id number] [address] [place] [address], [place] [address] Mar, [facility] [address] [id number] [address] [place] [phone] Mar, [facility] [address] [id number] [address] [place] [phone] Mar, [facility] [address] [id number] [address] [place] [phone] Mar, [facility] [address] [id number] [address] [place] [phone] Mar, [facility] [address] [id number] [address] [place] [phone] Mar, [facility] [address] [id number] [address] [place] [phone] Feb, [facility] [address] [id number] [address] [place] [phone] Feb, [facility] [address] [id number] [address] [place] [phone] Feb, [facility] [address] [id number] [address] [place] [phone] Feb, IMMUNIZATIONS No Known Immunizations SOCIAL HISTORY Never Assessed REASON FOR VISIT [facility] PLAN OF CARE VITAL SIGNS MEDICATIONS No [...]
--- OUTSIDE RECORDS SUMMARY | 2019-05-23 11:35 | XMS REPORT ---
Author Author Antoine POLLARD [facility] Address [address] [place] [address] Care Team Providers Care Personal Service Workers Name Role Phone TERRY POLLARD Unavailable PROBLEMS Type Condition ICD9-CM Code ZSN68-GG Code Onset Dates Condition S tatus SNOMED Code Problem Type 2 diabetes mellitus wit h diabetic chronic kidney disease, 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 Active 806104 003 Problem History of hypothyroidism Z86.39 Acti ve 602590685 Problem Essential hypertension I10 Active 38060289 Problem Mixed hyperlipidemia E78.2 Active 223318941 Problem End stage renal disease N18.6 Active 164320731 Problem Chronic renal failure, unspecified stage N18.9 Active 69684231 Problem Type 2 diabetes mellitus without complications E11 .9 Active 658627639 Problem 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.2 A ctive 104503747 Problem Difficulty walking R26.2 Active 7 64339548 Problem Charcot foot due to diabetes mellitus E11.610 Active 31900226 Problem Yuewjst-Utawq-Uxttu disease-like deformity of foot 356.1 Active 211865516 Problem Type II or unspecified type diabetes mellitus with neurological manifestations, not stated as uncontrolled E11.49 Active 12136841 Problem Retinopathy due to secondary diabetes mellitus, with macular edema, 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 Active 3610799 Problem Charcot ankle M14.679 Active 516947 008 ALLERGIES No Known Allergies ENCOUNTERS Encounter Location Date Diagnosis [facility] [address] [facility] [id number] [address] [place] [address] Mar, [facility] [address] [facility] [id number] [address] [place] [address] Feb, [facility] [address] [facility] [id number] [address] [place] [phone] Feb, Type II or unspecified type diabetes mellitus with neurological manifestations, not stated as uncontrolled E11.49 ; Cough R05 ; Essential hypertension I10 ; Hyperglycemia R73.9 and Hematuria, unspecified type R31.9 [facility] [address] [place] [id number] [address] [place] [address] Jan, HTN (hypertension) I10 ; Typ e 2 diabetes mellitus with diabetic chronic kidney disease, 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 and 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.2 [facility] [address] [place] [address] Jan, [facility] [address] [place] [id number] [address] [place] [phone] Oct, Type 2 diabetes mellitus wit hout complications E11.9 [place] [address] [place] [id number] [place] [address] July, Mixed hyperlipidemia E78.2 [place] [address] [place] [id number] [address] [place] [address] July, Type II or unspecified type diabetes mellitus with neurological manifestations, not stated as uncontrolled E11.49 ; Hyperglycemia R73.9 ; 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.2 and End stage renal disease N18.6 [place] [address] [place] [id number] [address] [place] [address] Jun, [facility] [address] [place] [id number] [address] [place] [address] Apr, Type 2 diabetes mellitus wit h diabetic chronic kidney disease, 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 and Seizures R56.9 [facility] [address] [place] [id number] [address] [place] [address] Apr, Difficulty walking R26.2 [facility] WALK IN [facility] [address] [place] [id number] [address] [place] [address] Mar, Hyperglycemia R73.9 and Zion roenteritis K52.9 [place] [address] [place] [id number] [address] [place] [address] July, Chronic renal failure, unspe cified stage N18.9 [facility] [address] [facility] [id number] [address] [place] [address] Jun, [facility] [address] [facility] [id number] [address] [place] [phone] Jun, Chronic renal failure, unspe cified stage N18.9 [facility] [address] [facility] [id number] [address] [place] [address] Jun, Chronic renal failure, unspe cified stage N18.9 and Leg pain, diffuse, unspecified laterality M79.606 [facility] [address] [facility] [id number] [address] [place] [address] May, [facility] [address] [place] [id number] [address] [place] [address] May, [facility] WALK IN [facility] [address] [place] [id number] [address] [place] [address] May, [facility] [address] [facility] [id number] [address] [place] [address] May, Chronic renal failure, unspe cified stage N18.9 [facility] [address] [facility] [id number] [address] [place] [address] Apr, Chronic renal failure, unspe cified stage N18.9 [facility] [address] [place] [address] Mar, [facility] [address] [place] [id number] [address] [place] [address] Mar, Kidney dysfunction N28.9 ; T ype 2 diabetes mellitus with diabetic chronic kidney disease, 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 ; Essential hypertension I10 ; Charcot ankle M14.679 and Chronic renal failure, unspecified stage N18.9 [facility] [address] [place] [id number] [address] [place] [address] 14 Dec, 2015 Kidney dysfunction N28.9 [facility] [address] [place] [address] Nov, Type 2 diabetes mellitus wit hout complications E11.9 ; Essential hypertension I10 ; Charcot ankle M14.679 ; History of hypothyroidism Z86.39 and History of anemia Z86.2 [place] [address] [place] [address] Oct, Type 2 diabetes mellitus wit h diabetic chronic kidney disease, 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 [place] [address] [address] Oct, Onychocryptosis L60.0 ; Linda cot ankle M14.679 ; Pes planus M21.40 and Type 2 diabetes mellitus with diabetic chronic kidney disease, 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 [place] [address] [address] Sep, [place] [address] [address] Sep, [place] [address] [address] Aug, [place] [address] [address] Aug, Type 2 diabetes mellitus wit h diabetic chronic kidney disease, 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 ; Essential hypertension I10 ; Charcot ankle M14.679 ; History of hypothyroidism Z86.39 and History of anemia Z86.2 [place] [address] [place] [id number] [address] [place] [address] May, Acute kidney injury N17.9 ; Essential hypertension I10 and Type 2 diabetes mellitus with diabetic chronic kidney disease, 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 [place] [address] [place] [id number] [place] [address] Mar, Foot pain M79.673 ; Charcot ankle M14.679 and Pes planus M21.40 [place] [address] [place] [id number] [place] [address] 04 Feb, 2015 Left foot pain M79.672 ; Vera rcot ankle M14.679 and Type II or unspecified type diabetes mellitus with neurological manifestations, not stated as uncontrolled E11.49 [facility] [address] [id number] [address] [place] [address] 15 Dec, 2014 Hypoglycemia, unspecified E1 6.2 [facility] [address] [id number] [address] [place] [address] 14 Dec, 2014 Left foot pain M79.672 [facility] [address] [facility] [id number] [address] [place] [address] 13 Dec, 2014 Pain in left foot M79.672 ; Other specified soft tissue disorders M79.89 and Type 2 diabetes mellitus with diabetic neuropathy E11.40 [facility] [address] [facility] [id number] [address] [place] [address] 14 Jun, 2014 [facility] [address] [id number] [address] [place] [address] Jun, [facility] [address] [id number] [address] [place] [address] May, [facility] [address] [id number] [address] [place] [address] May, [facility] [address] [facility] [id number] [address] [place] [address] Apr, [facility] [address] [id number] [address] [place] [address] Apr, [facility] [address] [id number] [address] [place] [address] Apr, [facility] [address] [facility] [id number] [address] [place] [address] Apr, [facility] [address] [facility] [id number] [address] [place] [phone] Mar, [facility] [address] [id number] [address] [place] [address], [place] [address] Mar, [facility] [address] [id number] [address] [place] [address], [place] [address] Feb, [facility] [address] [id number] [address] [place] [address], [place] [address] Feb, [facility] [address] [id number] [address] [place] [address], [place] [address] Feb, [facility] [address] [id number] [address] [place] [address], [place] [address] Feb, [facility] [address] [id number] [address] [place] [address], [place] [address] Oct, [facility] [address] [id number] [address] [place] [address], [place] [address] Oct, [facility] [address] [id number] [address] [place] [address], [place] [address] Oct, [facility] [address] [id number] [address] [place] [address], [place] [address] Oct, [facility] [address] [id number] [address] [place] [address], [place] [address] Oct, [facility] [address] [id number] [address] [place] [address], [place] [address] Oct, [facility] [address] [id number] [address] [place] [address], [place] [address] Oct, [facility] [address] [id number] [address] [place] [address], [place] [address] Oct, [facility] [address] [id number] [address] [place] [address], [place] [address] Aug, [facility] [address] [id number] [address] [place] [address], [place] [address] Aug, [facility] [address] [id number] [address] [place] [address], [place] [address] Apr, [facility] [address] [id number] [address] [place] [address], [place] [address] Apr, [facility] [address] [id number] [address] [place] [address], [place] [address] Apr, [facility] [address] [id number] [address] [place] [address], [place] [address] Apr, [facility] [address] [id number] [address] [place] [address], [place] [address] Apr, [facility] [address] [id number] [address] [place] [address], [place] [address] Apr, [facility] [address] [id number] [address] [place] [address], [place] [address] Apr, [facility] [address] [id number] [address] [place] [address], [place] [address] Apr, [facility] [address] [id number] [address] [place] [address], [place] [address] Mar, [facility] [address] [id number] [address] [place] [address], [place] [address] Mar, [facility] [address] [id number] [address] [place] [address], [place] [address] Mar, [facility] [address] [id number] [address] [place] [address], [place] [address] Mar, [facility] [address] [id number] [address] [place] [address], [place] [address] Mar, [facility] [address] [id number] [address] [place] [address], [place] [address] Mar, [facility] [address] [id number] [address] [place] [address], [place] [address] Mar, [facility] [address] [id number] [address] [place] [address], [place] [address] Mar, [facility] [address] [id number] [address] [place] [address] Mar, [facility] [address] [id number] [address] [place] [address] Mar, [facility] [address] [id number] [address] [place] [address] Mar, [facility] [address] [id number] [address] [place] [address] Mar, [facility] [address] [id number] [address] [place] [address] Feb, [facility] [address] [id number] [address] [place] [address] Feb, [facility] [address] [id number] [address] [place] [address] Feb, [facility] [address] [id number] [address] [place] [address] Feb, IMMUNIZATIONS No Known Immunizations SOCIAL HISTORY Never Assessed REASON FOR VISIT Blood Pressure Pt states last 6 weeks he has not felt well, he has had a cough, his b/p has been elevated and his bs has been elevated as well SCOTTY [place] PLAN OF CARE Activity Details Follow Up 4 Weeks Reason:Diabetes Pending Test CBC VITAL SIGNS Height 64 in 2018-02-28 Weight 186.0 lbs 2018-02-28 Temperature 98.9 degrees Fahrenheit 2018-02-28 Heart Rate 76 bpm 2018-02-28 Respiratory Rate 20 2018-02-28 Oximetry 99 % 2018-02-28 BMI 31.92 kg/m2 2018-02-28 Blood pressure systolic 162 mmHg 2018-02-28 Blood pressure diastolic 90 mmHg 2018-02-28 MEDICATIONS Medication Instructions Dosage Frequency Start Date End Date Duration S tatus Test strips subcutaneously 3 times a day test blood sugar 8h Apr Active Levetiracetam 750 MG Orally daily at noon on / /WED/WED and the after Dialysis on // 1 tablet Not-Taking FreeStyle Lite Test N/A In Vitro 2 times a day test blood sugar 12h Active Glucometer subcutaneously 3 times a day test blood sugar 8h Apr, Active Tums 500 MG 2 tablets with meals and 1 tablet with snacks Active Furosemide 80 MG Orally Twice a day 1 tablet 12h Active Norvasc 10 MG Orally Once a day 1 tablet 24h Not-Taking Vitamin C 500 mg Orally Once a day 1 tablet 24h Not-Taking Vitamin D 50,0000 Orally once weekly Active Levemir FlexTouch 100 UNIT/ML Subcutaneous once a day at HS 10 units Active NovoLog Flexpen 100 UNIT/ML Subcutaneous 3 times a day Injec t before meals per sliding scale 8h Active Ciprofloxacin HCl 500 MG Orally every 12 hrs 1 tablet 12h Feb, 18 7 days Active Metoprolol Succinate ER 100 MG Orally Once a day 1 1/2 tablet 24h 30 day(s) Active FreeStyle Lite - Active Acetaminophen 500 MG Orally every 6 hrs 4 capsule as needed 6h Active Lipitor 40 MG Orally Once a day 1 tablet 24h July, 30 days Not-Taking Ferrous Sulfate 325 (65 Fe) MG Orally Once a day 1 tablet 24h Active Dialysis Safety Syringe/Needle 22G X 1-1/2 Not-Taking RESULTS Name Result Date Reference Range A1C (IN HOUSE) A1C IN HOUSE 12.8 4.3 - 5.6 % Previous A1c 8.6 Lot [id number] Exp date 11/2019 UA W/CULTURE IF INDICATED (IN HOUSE) Lot # [id number] Exp date 10/12/18 Clarity clear Color yellow Odor none GLU 1+ LAMONT negative KET negative SG 1.020 BLO 1+ pH 7.0 Protein 3+ URO 0.2 NIT negative NIDHI negative Lot # [id number] Exp date 02/2018 PROCEDURES Procedure Date Ordered Result Body Site GLYCATED HEMOGLOBIN TEST Feb 28, 2018 [facility] Feb [facility], 2018 [facility] VISIT ESTABLISHED PATIENT Feb 28, 2018 URINALYSIS, AUTO, W/O SCOPE Feb 28, 2018 INSTRUCTIONS MEDICATIONS ADMINISTERED No Known Medications MEDICAL (GENERAL) HISTORY Type Description Date Medical History diabetes Type II Medical History hypertension Medical History Charcot foot due to diabetes mellitus Medical History kidney failure with dialysis Medical History anemia secondary to renal failure Surgical History Dialysis shunt Hospitalization History ER for low blood sugar 05/28
--- OUTSIDE RECORDS SUMMARY | 2019-05-23 11:35 | XMS REPORT ---
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 Active 1849833 Problem Fexcxhu-Uykjo-Sfaxo disease-like deformity of foot 356.1 Active 093905043 Problem Charcot foot due to diabetes mellitus E11.610 Active 45768445 Problem Charcot ankle M14.679 Active 770930 008 Problem Type II or unspecified type diabetes mellitus with neurological manifestations, not stated as uncontrolled E11.49 Active 46869074 Problem History of hypothyroidism Z86.39 Acti ve 764199616 Problem Type 2 diabetes mellitus without complications E11 .9 Active 724583744 Problem Chronic renal failure, unspecified stage N18.9 Active 40216546 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 Active 385790949 Problem Essential hypertension I10 Active 68125983 Problem Type 2 diabetes mellitus with hyperglycemia E11.65 Active 40753551 Problem Type 2 diabetes mellitus wit h diabetic chronic kidney disease, 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 Active 291485 003 Problem Difficulty walking R26.2 Active 7 93348794 Problem 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.2 A ctive 619624637 Problem End stage renal disease N18.6 Active 238961959 Problem Mixed hyperlipidemia E78.2 Active [id number] ALLERGIES No Information ENCOUNTERS Encounter Location Date Diagnosis [facility] [address] [facility] [id number] [address] [place] [address] Sep, [facility] [address] [facility] [id number] [address] [place] [address] Aug, [facility] [address] [place] [id number] [address] [place] [address] Jun, [facility] [address] [facility] [id number] [address] [place] [phone] Mar, Essential hypertension I10 ; 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 ; Type 2 diabetes mellitus with hyperglycemia E11.65 ; 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.2 and Mixed hyperlipidemia E78.2 [facility] [address] [facility] [id number] [address] [place] [phone] Feb, [facility] [address] [facility] [id number] [address] [place] [address] Feb, Type II or unspecified type diabetes mellitus with neurological manifestations, not stated as uncontrolled E11.49 ; Cough R05 ; Essential hypertension I10 ; Hyperglycemia R73.9 and Hematuria, unspecified type R31.9 [facility] [address] [facility] [id number] [address] [place] [phone] Jan, HTN (hypertension) I10 ; Typ e 2 diabetes mellitus with diabetic chronic kidney disease, 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 and 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.2 [place] [address] [facility] [id number] [address] [place] [address] Jan, [facility] [address] [facility] [id number] [address] [place] [address] Oct, Type 2 diabetes mellitus wit hout complications E11.9 [facility] [address] [facility] [id number] [address] [place] [address] July, Mixed hyperlipidemia E78.2 [facility] [address] [facility] [id number] [address] [place] [address] July, Type II or unspecified type diabetes mellitus with neurological manifestations, not stated as uncontrolled E11.49 ; Hyperglycemia R73.9 ; 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.2 and End stage renal disease N18.6 [facility] [address] [facility] [id number] [address] [place] [address] Jun, [facility] [address] [place] [id number] [address] [place] [phone] 21 Apr, 2017 Type 2 diabetes mellitus wit h diabetic chronic kidney disease, 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 and Seizures R56.9 [facility] [address] [facility] [id number] [address] [place] [phone] 13 Apr, 2017 Difficulty walking R26.2 [facility] [address] [facility] [id number] [address] [place] [phone] Mar, Hyperglycemia R73.9 and Zion roenteritis K52.9 [place] [address] [facility] [id number] [address] [place] [phone] July, Chronic renal failure, unspe cified stage N18.9 [place] [address] [facility] [id number] [address] [place] [phone] Jun, [facility] [address] [place] [id number] [address] [place] [phone] Jun, Chronic renal failure, unspe cified stage N18.9 [facility] [address] [facility] [id number] [address] [place] [address] Jun, Chronic renal failure, unspe cified stage N18.9 and Leg pain, diffuse, unspecified laterality M79.606 [facility] [address] [facility] [id number] [address] [place] [address] May, [facility] [address] [facility] [id number] [address] [place] [address] May, [facility] [address] [facility] [id number] [address] [place] [address] May, [facility] [address] [place] [id number] [address] [place] [address] May, Chronic renal failure, unspe cified stage N18.9 [facility] [address] [facility] [id number] [address] [place] [address] Apr, Chronic renal failure, unspe cified stage N18.9 [place] [address] [facility] [id number] [address] [place] [address] Mar, [place] [address] [place] [id number] [address] [place] [address] Mar, Kidney dysfunction N28.9 ; T ype 2 diabetes mellitus with diabetic chronic kidney disease, 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 ; Essential hypertension I10 ; Charcot ankle M14.679 and Chronic renal failure, unspecified stage N18.9 [place] [address] [place] [id number] [address] [place] [address] Dec, Kidney dysfunction N28.9 [place] [address] [address] Nov, Type 2 diabetes mellitus wit hout complications E11.9 ; Essential hypertension I10 ; Charcot ankle M14.679 ; History of hypothyroidism Z86.39 and History of anemia Z86.2 [place] [address] [place] [address] Oct, Type 2 diabetes mellitus wit h diabetic chronic kidney disease, 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 [place] [address] [place] [address] Oct, Onychocryptosis L60.0 ; Linda cot ankle M14.679 ; Pes planus M21.40 and Type 2 diabetes mellitus with diabetic chronic kidney disease, 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 [place] [address] [place] [address] Sep, [place] [address] [place] [address] Sep, [place] [address] [place] [id number] [address] [place] [address] Aug, [place] [address] [place] [id number] [address] [place] [address] Aug, Type 2 diabetes mellitus wit h diabetic chronic kidney disease, 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 ; Essential hypertension I10 ; Charcot ankle M14.679 ; History of hypothyroidism Z86.39 and History of anemia Z86.2 [place] [address] [place] [phone] 05 May, 2015 Acute kidney injury N17.9 ; Essential hypertension I10 and Type 2 diabetes mellitus with diabetic chronic kidney disease, 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 [place] [address] [address] Mar, Foot pain M79.673 ; Charcot ankle M14.679 and Pes planus M21.40 [place] [address] [address] 04 Feb, 2015 Left foot pain M79.672 ; Vera rcot ankle M14.679 and Type II or unspecified type diabetes mellitus with neurological manifestations, not stated as uncontrolled E11.49 [place] [address] [address] 15 Dec, 2014 Hypoglycemia, unspecified E1 6.2 [place] [address] [address] 14 Dec, 2014 Left foot pain M79.672 [place] [address] [address] 13 Dec, 2014 Pain in left foot M79.672 ; Other specified soft tissue disorders M79.89 and Type 2 diabetes mellitus with diabetic neuropathy E11.40 [place] [address] [place] [address] Jun, [place] [address] [address] Jun, [place] [address] [address] 16 May, 2014 [place] [address] [address] 16 May, 2014 [facility] [address] [id number] [address] [place] [address], [place] [address] Apr, 2014 [facility] [address] [id number] [address] [place] [address], [place] [address] Apr, 2014 [facility] [address] [id number] [address] [place] [address], [place] [address] Apr, [facility] [address] [id number] [address] [place] [address], [place] [address] Apr, [facility] [address] [id number] [address] [place] [address], [place] [address] Mar, [facility] [address] [id number] [address] [place] [address], [place] [address] Mar, [facility] [address] [id number] [address] [place] [address], [place] [address] Feb, [facility] [address] [id number] [address] [place] [address], [place] [address] Feb, [facility] [address] [id number] [address] [place] [address], [place] [address] Feb, [facility] [address] [id number] [address] [place] [address], [place] [address] Feb, [facility] [address] [id number] [address] [place] [address], [place] [address] Oct, [facility] [address] [id number] [address] [place] [address], [place] [address] Oct, [facility] [address] [id number] [address] [place] [address], [place] [address] Oct, [facility] [address] [id number] [address] [place] [address], [place] [address] Oct, [facility] [address] [id number] [address] [place] [address], [place] [address] Oct, [facility] [address] [id number] [address] [place] [address], [place] [address] Oct, [facility] [address] [id number] [address] [place] [address], [place] [address] Oct, [facility] [address] [id number] [address] [place] [address], [place] [address] Oct, [facility] [address] [id number] [address] [place] [address], [place] [address] Aug, [facility] [address] [id number] [address] [place] [address], [place] [address] Aug, [facility] [address] [id number] [address] [place] [address], [place] [address] Apr, [facility] [address] [id number] [address] [place] [address], [place] [address] Apr, [facility] [address] [id number] [address] [place] [address], [place] [address] Apr, [facility] [address] [id number] [address] [place] [address], [place] [address] Apr, [facility] [address] [id number] [address] [place] [address], [place] [address] Apr, [facility] [address] [id number] [address] [place] [address], [place] [address] Apr, [facility] [address] [id number] [address] [place] [address], [place] [address] Apr, [facility] [address] [id number] [address] [place] [address], [place] [address] Apr, [facility] [address] [id number] [address] [place] [address], [place] [address] Mar, [facility] [address] [id number] [address] [place] [address], [place] [address] Mar, [facility] [address] [id number] [address] [place] [address], [place] [address] Mar, [facility] [address] [id number] [address] [place] [address] Mar, [facility] [address] [id number] [address] [place] [phone] Mar, [facility] [address] [id number] [address] [place] [address] Mar, [facility] [address] [id number] [address] [place] [phone] Mar, [facility] [address] [id number] [address] [place] [address] Mar, [facility] [address] [id number] [address] [place] [phone] Mar, [facility] [address] [id number] [address] [place] [address] Mar, [facility] [address] [id number] [address] [place] [phone] Mar, [facility] [address] [id number] [address] [place] [address] Mar, [facility] [address] [id number] [address] [place] [address] Feb, [facility] [address] [id number] [address] [place] [phone] Feb, [facility] [address] [id number] [address] [place] [phone] Feb, [facility] [address] [id number] [address] [place] [address] Feb, IMMUNIZATIONS No Known Immunizations SOCIAL HISTORY Never Assessed REASON FOR VISIT PLAN OF CARE VITAL SIGNS Height 64 in 2014-04-25 Weight 175.5 lbs 2014-04-25 Temperature 97 degrees Fahrenheit 2014-04-25 Heart Rate 80 bpm 2014-04-25 Respiratory Rate 20 2014-04-25 Blood pressure systolic 164 mmHg 2014-04-25 Blood pressure diastolic 104 mmHg 2014-04-25 MEDICATIONS Unknown Medications RESULTS No Results PROCEDURES Procedure Date Ordered Result Body Site COMPLETE CBC W/AUTO DIFF WBC Apr 25, 2014 EXTREMITY STUDY Apr 25, 2014 COMPREHEN METABOLIC PANEL Apr 25, 2014 VENIPUNCT, ROUTINE* Apr 25, 2014 INSTRUCTIONS MEDICATIONS ADMINISTERED No Known Medications MEDICAL (GENERAL) HISTORY Type Description Date Medical History diabetes Type II Medical History hypertension Medical History Charcot foot due to diabetes mellitus Medical History kidney failure with dialysis Medical History anemia secondary to renal failure Surgical History Dialysis shunt Hospitalization History ER for low blood sugar 05/28
--- OUTSIDE RECORDS SUMMARY | 2019-05-23 11:35 | XMS REPORT ---
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 Active 2700578 Problem Mwtceui-Mzcmi-Dwvsw disease-like deformity of foot 356.1 Active 329654650 Problem Charcot foot due to diabetes mellitus E11.610 Active 99776601 Problem Charcot ankle M14.679 Active 131081 008 Problem Type II or unspecified type diabetes mellitus with neurological manifestations, not stated as uncontrolled E11.49 Active 64258862 Problem History of hypothyroidism Z86.39 Acti ve 011019407 Problem Type 2 diabetes mellitus without complications E11 .9 Active 486409971 Problem Chronic renal failure, unspecified stage N18.9 Active 12764214 Problem 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.4 Active 356148655 Problem Essential hypertension I10 Active 11862617 Problem Type 2 diabetes mellitus with hyperglycemia E11.65 Active 93885710 Problem Type 2 diabetes mellitus wit h diabetic chronic kidney disease, 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 Active 379839 003 Problem Difficulty walking R26.2 Active 7 96064984 Problem 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.2 A ctive 691130834 Problem End stage renal disease N18.6 Active 423165243 Problem Mixed hyperlipidemia E78.2 Active [id number] ALLERGIES No Information ENCOUNTERS Encounter Location Date Diagnosis [place] [id number] [facility] [id number] [address] [address] Sep, Type 2 diabetes mellitus wit h hyperglycemia E11.65 ; Essential hypertension I10 ; Chronic renal failure, unspecified stage N18.9 and Mixed hyperlipidemia E78.2 [facility] [address] [facility] [id number] [address] [place] [address] Aug, [facility] [address] [facility] [id number] [address] [place] [address] Jun, [facility] [address] [facility] [id number] [address] [place] [address] Mar, Essential hypertension I10 ; 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 ; Type 2 diabetes mellitus with hyperglycemia E11.65 ; 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.2 and Mixed hyperlipidemia E78.2 [facility] [address] [facility] [id number] [address] [place] [address] Feb, [facility] [address] [facility] [id number] [address] [place] [address] Feb, Type II or unspecified type diabetes mellitus with neurological manifestations, not stated as uncontrolled E11.49 ; Cough R05 ; Essential hypertension I10 ; Hyperglycemia R73.9 and Hematuria, unspecified type R31.9 [facility] [address] [facility] [id number] [address] [place] [address] Jan, HTN (hypertension) I10 ; Typ e 2 diabetes mellitus with diabetic chronic kidney disease, 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 and 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.2 [facility] [address] [facility] [id number] [address] [place] [address] Jan, [facility] [address] [facility] [id number] [address] [place] [address] Oct, Type 2 diabetes mellitus wit hout complications E11.9 [facility] [address] [facility] [id number] [address] [place] [address] July, Mixed hyperlipidemia E78.2 [facility] [address] [facility] [id number] [address] [place] [address] July, Type II or unspecified type diabetes mellitus with neurological manifestations, not stated as uncontrolled E11.49 ; Hyperglycemia R73.9 ; 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.2 and End stage renal disease N18.6 [facility] [address] [place] [id number] [address] [place] [address] Jun, [facility] [address] [address] Apr, Type 2 diabetes mellitus wit h diabetic chronic kidney disease, 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 and Seizures R56.9 [place] [address] [address] Apr, Difficulty walking R26.2 [facility] [address] [address] Mar, Hyperglycemia R73.9 and [place] roenteritis K52.9 [place] [address] [address] July, Chronic renal failure, unspe cified stage N18.9 [place] [address] [address] Jun, [place] [address] [address] Jun, Chronic renal failure, unspe cified stage N18.9 [place] [address] [place] [id number] [address] [place] [address] Jun, Chronic renal failure, unspe cified stage N18.9 and Leg pain, diffuse, unspecified laterality M79.606 [place] [address] [place] [id number] [address] [place] [address] May, [place] [address] [place] [id number] [address] [place] [address] May, [facility] [address] [address] May, [place] [address] [address] May, Chronic renal failure, unspe cified stage N18.9 [place] [address] [place] [id number] [address] [place] [address] Apr, Chronic renal failure, unspe cified stage N18.9 [place] [address] [facility] [id number] [address] [place] [address] Mar, [place] [address] [place] [id number] [address] [place] [address] Mar, Kidney dysfunction N28.9 ; T ype 2 diabetes mellitus with diabetic chronic kidney disease, 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 ; Essential hypertension I10 ; Charcot ankle M14.679 and Chronic renal failure, unspecified stage N18.9 [place] [address] [place] [id number] [address] [place] [address] Dec, Kidney dysfunction N28.9 [place] [address] [place] [id number] [address] [place] [address] Nov, Type 2 diabetes mellitus wit hout complications E11.9 ; Essential hypertension I10 ; Charcot ankle M14.679 ; History of hypothyroidism Z86.39 and History of anemia Z86.2 [place] [address] [facility] [id number] [address] [place] [address] Oct, Type 2 diabetes mellitus wit h diabetic chronic kidney disease, 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 [place] [address] [place] [id number] [address] [place] [address] Oct, Onychocryptosis L60.0 ; Linda cot ankle M14.679 ; Pes planus M21.40 and Type 2 diabetes mellitus with diabetic chronic kidney disease, 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 [place] [address] [facility] [id number] [address] [place] [address] Sep, [place] [address] [place] [id number] [address] [place] [address] Sep, [place] [address] [place] [id number] [address] [place] [address] Aug, [place] [address] [place] [id number] [place] [address] 09 Aug, 2015 Type 2 diabetes mellitus wit h diabetic chronic kidney disease, 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 ; Essential hypertension I10 ; Charcot ankle M14.679 ; History of hypothyroidism Z86.39 and History of anemia Z86.2 [place] [address] [address] 05 May, 2015 Acute kidney injury N17.9 ; Essential hypertension I10 and Type 2 diabetes mellitus with diabetic chronic kidney disease, 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 [place] [address] [address] 22 Mar, 2015 Foot pain M79.673 ; Charcot ankle M14.679 and Pes planus M21.40 [place] [address] [address] 04 Feb, 2015 Left foot pain M79.672 ; Vera rcot ankle M14.679 and Type II or unspecified type diabetes mellitus with neurological manifestations, not stated as uncontrolled E11.49 [place] [address] [id number] 15 Dec, 2014 Hypoglycemia, unspecified E1 6.2 [place] [address] [address] 14 Dec, 2014 Left foot pain M79.672 [place] [address] [address] 13 Dec, 2014 Pain in left foot M79.672 ; Other specified soft tissue disorders M79.89 and Type 2 diabetes mellitus with diabetic neuropathy E11.40 [place] [address] [address] 14 Jun, 2014 [place] [address] [address] Jun, [place] [address] [address] 16 May, 2014 [facility] [address] [id number] [address] [place] [address], [place] [address] May, [facility] [address] [id number] [address] [place] [address], [place] [address] Apr, [facility] [address] [id number] [address] [place] [address], [place] [address] Apr, [facility] [address] [id number] [address] [place] [address], [place] [address] Apr, [facility] [address] [id number] [address] [place] [address], [place] [address] Apr, [facility] [address] [id number] [address] [place] [address], [place] [address] Mar, [facility] [address] [id number] [address] [place] [address], [place] [address] Mar, [facility] [address] [id number] [address] [place] [address], [place] [address] Feb, [facility] [address] [id number] [address] [place] [address], [place] [address] Feb, [facility] [address] [id number] [address] [place] [address], [place] [address] Feb, [facility] [address] [id number] [address] [place] [address], [place] [address] Feb, [facility] [address] [id number] [address] [place] [address], [place] [address] Oct, [facility] [address] [id number] [address] [place] [address], [place] [address] Oct, [facility] [address] [id number] [address] [place] [address], [place] [address] Oct, [facility] [address] [id number] [address] [place] [address], [place] [address] Oct, [facility] [address] [id number] [address] [place] [address], [place] [address] Oct, [facility] [address] [id number] [address] [place] [address], [place] [address] Oct, [facility] [address] [id number] [address] [place] [address], [place] [address] Oct, [facility] [address] [id number] [address] [place] [address], [place] [address] Oct, [facility] [address] [id number] [address] [place] [address], [place] [address] Aug, [facility] [address] [id number] [address] [place] [address], [place] [address] Aug, [facility] [address] [id number] [address] [place] [address], [place] [address] Apr, [facility] [address] [id number] [address] [place] [address], [place] [address] Apr, [facility] [address] [id number] [address] [place] [address], [place] [address] Apr, [facility] [address] [id number] [address] [place] [address], [place] [address] Apr, [facility] [address] [id number] [address] [place] [address], [place] [address] Apr, [facility] [address] [id number] [address] [place] [address], [place] [address] Apr, [facility] [address] [id number] [address] [place] [address], [place] [address] Apr, [facility] [address] [id number] [address] [place] [address], [place] [address] Apr, [facility] [address] [id number] [address] [place] [address], [place] [address] Mar, [facility] [address] [id number] [address] [place] [address], [place] [address] Mar, [facility] [address] [id number] [address] [place] [address] Mar, [facility] [address] [id number] [address] [place] [address] Mar, [facility] [address] [id number] [address] [place] [address] Mar, [facility] [address] [id number] [address] [place] [address] Mar, [facility] [address] [id number] [address] [place] [address] Mar, [facility] [address] [id number] [address] [place] [address] Mar, [facility] [address] [id number] [address] [place] [address] Mar, [facility] [address] [id number] [address] [place] [address] Mar, [facility] [address] [id number] [address] [place] [address] Mar, [facility] [address] [id number] [address] [place] [address] Mar, [facility] [address] [id number] [address] [place] [address] Feb, [facility] [address] [id number] [address] [place] [address] Feb, [facility] [address] [id number] [address] [place] [address] Feb, [facility] [address] [id number] [address] [place] [address] Feb, IMMUNIZATIONS No Known Immunizations SOCIAL HISTORY [...]
--- OUTSIDE RECORDS SUMMARY | 2019-05-23 11:35 | XMS REPORT ---
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 Active 9578173 Problem Caqzykm-Gwxvg-Qdmfz disease-like deformity of foot 356.1 Active 332278639 Problem Charcot foot due to diabetes mellitus E11.610 Active 52838984 Problem Charcot ankle M14.679 Active 133543 008 Problem Type II or unspecified type diabetes mellitus with neurological manifestations, not stated as uncontrolled E11.49 Active 78751440 Problem History of hypothyroidism Z86.39 Acti ve 259357005 Problem Type 2 diabetes mellitus without complications E11 .9 Active 710435779 Problem Chronic renal failure, unspecified stage N18.9 Active 36670842 Problem rn long term care current use of insulin Z79.4 Active 254561605 Problem Essential hypertension I10 Active 24900396 Problem Type 2 diabetes mellitus with hyperglycemia E11.65 Active 25874437 Problem Type 2 diabetes mellitus wit h diabetic chronic kidney disease, 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 Active 921661 003 Problem Difficulty walking R26.2 Active 7 66570973 Problem 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.2 A ctive 746632575 Problem End stage renal disease N18.6 Active 685555915 Problem Mixed hyperlipidemia E78.2 Active 467554080 ALLERGIES No Information ENCOUNTERS Encounter Location Date Diagnosis [facility] [address] [facility] [id number] [address] [place] [phone] Mar, Essential hypertension I10 ; rn long term care current use of insulin Z79.4 ; Type 2 diabetes mellitus with hyperglycemia E11.65 ; 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.2 and Mixed hyperlipidemia E78.2 [facility] [address] [facility] [id number] [address] [place] [address] Feb, [facility] [address] [facility] [id number] [address] [place] [address] Feb, Type II or unspecified type diabetes mellitus with neurological manifestations, not stated as uncontrolled E11.49 ; Cough R05 ; Essential hypertension I10 ; Hyperglycemia R73.9 and Hematuria, unspecified type R31.9 [facility] [address] [facility] [id number] [address] [place] [address] Jan, HTN (hypertension) I10 ; Typ e 2 diabetes mellitus with diabetic chronic kidney disease, 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 and 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.2 [facility] [address] [facility] [id number] [address] [place] [id number] Jan, [facility] [address] [facility] [id number] [address] [place] [address] Oct, Type 2 diabetes mellitus wit hout complications E11.9 [facility] [address] [facility] [id number] [address] [place] [address] July, Mixed hyperlipidemia E78.2 [facility] [address] [facility] [id number] [address] [place] [address] July, Type II or unspecified type diabetes mellitus with neurological manifestations, not stated as uncontrolled E11.49 ; Hyperglycemia R73.9 ; 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.2 and End stage renal disease N18.6 [facility] [address] [facility] [id number] [address] [place] [phone] Jun, [facility] [address] [facility] [id number] [address] [place] [address] Apr, Type 2 diabetes mellitus wit h diabetic chronic kidney disease, 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 and Seizures R56.9 [facility] [address] [facility] [id number] [address] [place] [phone] 13 Apr, 2017 Difficulty walking R26.2 [facility] [address] [facility] [id number] [address] [place] [phone] Mar, Hyperglycemia R73.9 and [place] roenteritis K52.9 [facility] [address] [facility] [id number] [address] [place] [address] July, Chronic renal failure, unspe cified stage N18.9 [facility] [address] [facility] [id number] [address] [place] [phone] Jun, [facility] [address] [place] [id number] [address] [place] [phone] Jun, Chronic renal failure, unspe cified stage N18.9 [place] [address] [facility] [id number] [address] [place] [address] Jun, Chronic renal failure, unspe cified stage N18.9 and Leg pain, diffuse, unspecified laterality M79.606 [place] [address] [place] [id number] [address] [place] [address] May, [facility] [address] [place] [id number] [address] [place] [phone] May, [facility] [address] [facility] [id number] [address] [place] [phone] May, [facility] [address] [place] [id number] [address] [place] [address] May, Chronic renal failure, unspe cified stage N18.9 [facility] [address] [facility] [id number] [address] [place] [address] Apr, Chronic renal failure, unspe cified stage N18.9 [facility] [address] [facility] [id number] [address] [place] [address] Mar, [facility] [address] [place] [id number] [address] [place] [address] Mar, Kidney dysfunction N28.9 ; T ype 2 diabetes mellitus with diabetic chronic kidney disease, 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 ; Essential hypertension I10 ; Charcot ankle M14.679 and Chronic renal failure, unspecified stage N18.9 [place] [address] [address] Dec, Kidney dysfunction N28.9 [place] [address] [address] Nov, Type 2 diabetes mellitus wit hout complications E11.9 ; Essential hypertension I10 ; Charcot ankle M14.679 ; History of hypothyroidism Z86.39 and History of anemia Z86.2 [place] [address] [address] Oct, Type 2 diabetes mellitus wit h diabetic chronic kidney disease, 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 [address] Oct, Onychocryptosis L60.0 ; Linda cot ankle M14.679 ; Pes planus M21.40 and Type 2 diabetes mellitus with diabetic chronic kidney disease, 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 [place] [address] [address] Sep, [place] [address] [address] Sep, [place] [address] [address] Aug, [place] [address] [address] Aug, Type 2 diabetes mellitus wit h diabetic chronic kidney disease, 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 ; Essential hypertension I10 ; Charcot ankle M14.679 ; History of hypothyroidism Z86.39 and History of anemia Z86.2 [place] [address] [address] May, Acute kidney injury N17.9 ; Essential hypertension I10 and Type 2 diabetes mellitus with diabetic chronic kidney disease, 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 [address] Mar, Foot pain M79.673 ; Charcot ankle M14.679 and Pes planus M21.40 [facility] [address] [facility] [id number] [address] [place] [address] 04 Feb, 2015 Left foot pain M79.672 ; Vera rcot ankle M14.679 and Type II or unspecified type diabetes mellitus with neurological manifestations, not stated as uncontrolled E11.49 [facility] [address] [facility] [id number] [address] [place] [id number] 15 Dec, 2014 Hypoglycemia, unspecified E1 6.2 [facility] [address] [facility] [id number] [address] [place] [address] Dec, Left foot pain M79.672 [facility] [address] [place] [id number] [place] [address] 13 Dec, 2014 Pain in left foot M79.672 ; Other specified soft tissue disorders M79.89 and Type 2 diabetes mellitus with diabetic neuropathy E11.40 [facility] [address] [facility] [id number] [address] [place] [phone] Jun, [facility] [address] [facility] [id number] [address] [place] [address] Jun, [facility] [address] [place] [id number] [address] [place] [phone] May, [facility] [address] [facility] [id number] [address] [place] [address] May, [facility] [address] [facility] [id number] [address] [place] [address] Apr, [facility] [address] [facility] [id number] [address] [place] [address] Apr, [facility] [address] [facility] [id number] [address] [place] [phone] Apr, [facility] [address] [facility] [id number] [address] [place] [address] Apr, [facility] [address] [id number] [address] [place] [address], [place] [address] Mar, [facility] [address] [id number] [address] [place] [address], [place] [address] Mar, [facility] [address] [id number] [address] [place] [address], [place] [address] Feb, [facility] [address] [id number] [address] [place] [address], [place] [address] Feb, [facility] [address] [id number] [address] [place] [address], [place] [address] Feb, [facility] [address] [id number] [address] [place] [address], [place] [address] Feb, [facility] [address] [id number] [address] [place] [address], [place] [address] Oct, [facility] [address] [id number] [address] [place] [address], [place] [address] Oct, [facility] [address] [id number] [address] [place] [address], [place] [address] Oct, [facility] [address] [id number] [address] [place] [address], [place] [address] Oct, [facility] [address] [id number] [address] [place] [address], [place] [address] Oct, [facility] [address] [id number] [address] [place] [address], [place] [address] Oct, [facility] [address] [id number] [address] [place] [address], [place] [address] Oct, [facility] [address] [id number] [address] [place] [address], [place] [address] Oct, [facility] [address] [id number] [address] [place] [address], [place] [address] Aug, [facility] [address] [id number] [address] [place] [address], [place] [address] Aug, [facility] [address] [id number] [address] [place] [address], [place] [address] Apr, [facility] [address] [id number] [address] [place] [address], [place] [address] Apr, [facility] [address] [id number] [address] [place] [address], [place] [address] Apr, [facility] [address] [id number] [address] [place] [address], [place] [address] Apr, [facility] [address] [id number] [address] [place] [address], [place] [address] Apr, [facility] [address] [id number] [address] [place] [address], [place] [address] Apr, [facility] [address] [id number] [address] [place] [address], [place] [address] Apr, [facility] [address] [id number] [address] [place] [address], [place] [address] Apr, [facility] [address] [id number] [address] [place] [address], [place] [address] Mar, [facility] [address] [id number] [address] [place] [address], [place] [address] Mar, [facility] [address] [id number] [address] [place] [address], [place] [address] Mar, [facility] [address] [id number] [address] [place] [address], [place] [address] Mar, [facility] [address] [id number] [address] [place] [address], [place] [address] Mar, [facility] [address] [id number] [address] [place] [address], [place] [address] Mar, [facility] [address] [id number] [address] [place] [address], [place] [address] Mar, [facility] [address] [id number] [address] [place] [phone] Mar, [facility] [address] [id number] [address] [place] [address] Mar, [facility] [address] [id number] [address] [place] [phone] Mar, [facility] [address] [id number] [address] [place] [phone] Mar, [facility] [address] [id number] [address] [place] [id number] Mar, [facility] [address] [id number] [address] [place] [phone] Feb, [facility] [address] [id number] [address] [place] [phone] Feb, [facility] [address] [id number] [address] [place] [phone] Feb, [facility] [address] [id number] [address] [place] [phone] Feb, IMMUNIZATIONS No Known Immunizations SOCIAL HISTORY Never Assessed REASON FOR VISIT [facility] [place] PLAN OF CARE VITAL SIGNS MEDICATIONS Medication Instructions Dosage Frequency Start Date End Date Duration S tatus Lantus SoloStar 100 unit/mL (3 mL) 10 un its by Subcutaneous route 1 time per day at HS Oct, Active Lisinopril 20 mg take 1 tablet by Oral route 1 time per day Oct, Active Lovastatin 40 mg 1 tablet by Oral route 1 time per day 1 2 Oct, 2013 Active metformin 500 mg 2 tablet by Oral route 2 times per da y with food Oct, Active Ferrous Sulfate 325 mg (65 mg iron) 1 Ta blet by Oral route 2 times per day give with food Feb, Active RESULTS No Results PROCEDURES No Known [...]
--- OUTSIDE RECORDS SUMMARY | 2019-05-23 11:35 | XMS REPORT ---
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 Active 5310871 Problem Lgjwowr-Xyjwy-Ygztq disease-like deformity of foot 356.1 Active 856010612 Problem Charcot foot due to diabetes mellitus E11.610 Active 26993654 Problem Charcot ankle M14.679 Active 952270 008 Problem Type II or unspecified type diabetes mellitus with neurological manifestations, not stated as uncontrolled E11.49 Active 25170465 Problem History of hypothyroidism Z86.39 Acti ve 503047287 Problem Type 2 diabetes mellitus without complications E11 .9 Active 006798284 Problem Chronic renal failure, unspecified stage N18.9 Active 55405338 Problem 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.4 Active 844670651 Problem Essential hypertension I10 Active 24954780 Problem Type 2 diabetes mellitus with hyperglycemia E11.65 Active 47905573 Problem Type 2 diabetes mellitus wit h diabetic chronic kidney disease, 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 Active 869791 003 Problem Difficulty walking R26.2 Active 7 54622438 Problem 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.2 A ctive 426818470 Problem End stage renal disease N18.6 Active 452761910 Problem Mixed hyperlipidemia E78.2 Active [id number] ALLERGIES No Information ENCOUNTERS Encounter Location Date Diagnosis [facility] [address] [facility] [id number] [address] [place] [address] Aug, [facility] [address] [facility] [id number] [address] [place] [address] Jun, [facility] [address] [facility] [id number] [address] [place] [address] Mar, Essential hypertension I10 ; senior living current use of insulin Z79.4 ; Type 2 diabetes mellitus with hyperglycemia E11.65 ; 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.2 and Mixed hyperlipidemia E78.2 [facility] [address] [facility] [id number] [address] [place] [address] Feb, [facility] [address] [facility] [id number] [address] [place] [address] Feb, Type II or unspecified type diabetes mellitus with neurological manifestations, not stated as uncontrolled E11.49 ; Cough R05 ; Essential hypertension I10 ; Hyperglycemia R73.9 and Hematuria, unspecified type R31.9 [facility] [address] [facility] [id number] [address] [place] [address] Jan, HTN (hypertension) I10 ; Typ e 2 diabetes mellitus with diabetic chronic kidney disease, 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 and 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.2 [place] [address] [facility] [id number] [address] [place] [address] Jan, [facility] [address] [facility] [id number] [address] [place] [address] Oct, Type 2 diabetes mellitus wit hout complications E11.9 [place] [address] [facility] [id number] [address] [place] [address] July, Mixed hyperlipidemia E78.2 [facility] [address] [facility] [id number] [address] [place] [address] July, Type II or unspecified type diabetes mellitus with neurological manifestations, not stated as uncontrolled E11.49 ; Hyperglycemia R73.9 ; 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.2 and End stage renal disease N18.6 [place] [address] [facility] [id number] [address] [place] [address] Jun, [facility] [address] [facility] [id number] [address] [place] [address] Apr, Type 2 diabetes mellitus wit h diabetic chronic kidney disease, 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 and Seizures R56.9 [place] [address] [place] [id number] [address] [place] [address] 13 Apr, 2017 Difficulty walking R26.2 [facility] [address] [place] [id number] [address] [place] [address] 14 Mar, 2017 Hyperglycemia R73.9 and Zion roenteritis K52.9 [facility] [address] [place] [id number] [address] [place] [address] July, Chronic renal failure, unspe cified stage N18.9 [facility] [address] [place] [id number] [address] [place] [address] Jun, [facility] [address] [place] [id number] [place] [address] Jun, Chronic renal failure, unspe cified stage N18.9 [facility] [address] [place] [id number] [place] [address] Jun, Chronic renal failure, unspe cified stage N18.9 and Leg pain, diffuse, unspecified laterality M79.606 [facility] [address] [place] [id number] [address] [place] [address] May, [facility] [address] [place] [id number] [place] [address] May, [facility] [address] [place] [id number] [address] [place] [address] May, [facility] [address] [place] [id number] [address] [place] [address] May, Chronic renal failure, unspe cified stage N18.9 [facility] [address] [facility] [id number] [address] [place] [address] Apr, Chronic renal failure, unspe cified stage N18.9 [facility] [address] [facility] [id number] [address] [place] [address] Mar, [facility] [address] [place] [id number] [address] [place] [address] Mar, Kidney dysfunction N28.9 ; T ype 2 diabetes mellitus with diabetic chronic kidney disease, 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 ; Essential hypertension I10 ; Charcot ankle M14.679 and Chronic renal failure, unspecified stage N18.9 [place] [id number] [place] [address] Dec, Kidney dysfunction N28.9 [place] [address] [place] [id number] [address] [place] [address] Nov, Type 2 diabetes mellitus wit hout complications E11.9 ; Essential hypertension I10 ; Charcot ankle M14.679 ; History of hypothyroidism Z86.39 and History of anemia Z86.2 [place] [address] [place] [id number] [place] [address] Oct, Type 2 diabetes mellitus wit h diabetic chronic kidney disease, 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 [place] [address] [address] Oct, Onychocryptosis L60.0 ; Linda cot ankle M14.679 ; Pes planus M21.40 and Type 2 diabetes mellitus with diabetic chronic kidney disease, 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 [place] [address] [place] [id number] [address] [place] [address] Sep, [place] [address] [place] [id number] [address] [place] [address] Sep, [place] [address] [place] [id number] [address] [place] [address] Aug, [place] [address] [place] [id number] [address] [place] [address] Aug, Type 2 diabetes mellitus wit h diabetic chronic kidney disease, 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 ; Essential hypertension I10 ; Charcot ankle M14.679 ; History of hypothyroidism Z86.39 and History of anemia Z86.2 [place] [address] [place] [id number] [address] [place] [address] May, Acute kidney injury N17.9 ; Essential hypertension I10 and Type 2 diabetes mellitus with diabetic chronic kidney disease, 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 [facility] [address] [place] [id number] [place] [address] Mar, Foot pain M79.673 ; Charcot ankle M14.679 and Pes planus M21.40 [facility] [address] [place] [id number] [place] [address] 04 Feb, 2015 Left foot pain M79.672 ; Vera rcot ankle M14.679 and Type II or unspecified type diabetes mellitus with neurological manifestations, not stated as uncontrolled E11.49 [place] [address] [address] 15 Dec, 2014 Hypoglycemia, unspecified E1 6.2 [place] [address] [address] 14 Dec, 2014 Left foot pain M79.672 [facility] [address] [place] [id number] [place] [address] 13 Dec, 2014 Pain in left foot M79.672 ; Other specified soft tissue disorders M79.89 and Type 2 diabetes mellitus with diabetic neuropathy E11.40 [facility] [address] [place] [id number] [address] [place] [address] Jun, [facility] [address] [place] [id number] [address] [place] [address] Jun, [facility] [address] [place] [id number] [address] [place] [address] May, [facility] [address] [place] [id number] [address] [place] [address] May, [facility] [address] [place] [id number] [address] [place] [address] Apr, [facility] [address] [place] [id number] [address] [place] [address] Apr, [facility] [address] [id number] [address] [place] [address], [place] [address] Apr, [facility] [address] [id number] [address] [place] [address], [place] [address] Apr, [facility] [address] [id number] [address] [place] [address], [place] [address] Mar, [facility] [address] [id number] [address] [place] [address], [place] [address] Mar, [facility] [address] [id number] [address] [place] [address], [place] [address] Feb, [facility] [address] [id number] [address] [place] [address], [place] [address] Feb, [facility] [address] [id number] [address] [place] [address], [place] [address] Feb, [facility] [address] [id number] [address] [place] [address], [place] [address] Feb, [facility] [address] [id number] [address] [place] [address], [place] [address] Oct, [facility] [address] [id number] [address] [place] [address], [place] [address] Oct, [facility] [address] [id number] [address] [place] [address], [place] [address] Oct, [facility] [address] [id number] [address] [place] [address], [place] [address] Oct, [facility] [address] [id number] [address] [place] [address], [place] [address] Oct, [facility] [address] [id number] [address] [place] [address], [place] [address] Oct, [facility] [address] [id number] [address] [place] [address], [place] [address] Oct, [facility] [address] [id number] [address] [place] [address], [place] [address] Oct, [facility] [address] [id number] [address] [place] [address], [place] [address] Aug, [facility] [address] [id number] [address] [place] [address], [place] [address] Aug, [facility] [address] [id number] [address] [place] [address], [place] [address] Apr, [facility] [address] [id number] [address] [place] [address], [place] [address] Apr, [facility] [address] [id number] [address] [place] [address], [place] [address] Apr, [facility] [address] [id number] [address] [place] [address], [place] [address] Apr, [facility] [address] [id number] [address] [place] [address], [place] [address] Apr, [facility] [address] [id number] [address] [place] [address], [place] [address] Apr, [facility] [address] [id number] [address] [place] [address], [place] [address] Apr, [facility] [address] [id number] [address] [place] [address], [place] [address] Apr, [facility] [address] [id number] [address] [place] [address], [place] [address] Mar, [facility] [address] [id number] [address] [place] [address], [place] [address] Mar, [facility] [address] [id number] [address] [place] [address], [place] [address] Mar, [facility] [address] [id number] [address] [place] [address], [place] [address] Mar, [facility] [address] [id number] [address] [place] [address], [place] [address] Mar, [facility] [address] [id number] [address] [place] [address] Mar, [facility] [address] [id number] [address] [place] [address] Mar, [facility] [address] [id number] [address] [place] [address] Mar, [facility] [address] [id number] [address] [place] [address] Mar, [facility] [address] [id number] [address] [place] [address] Mar, [facility] [address] [id number] [address] [place] [address] Mar, [facility] [address] [id number] [address] [place] [address] Mar, [facility] [address] [id number] [address] [place] [address] Feb, [facility] [address] [id number] [address] [place] [address] Feb, [facility] [address] [id number] [address] [place] [address] Feb, [facility] [address] [id number] [address] [place] [address] Feb, IMMUNIZATIONS No Known Immunizations SOCIAL HISTORY Never Assessed REASON FOR VISIT [facility] PLAN OF CARE VITAL SIGNS MEDICATIONS Unknown [...]
--- OUTSIDE RECORDS SUMMARY | 2019-05-23 11:35 | XMS REPORT ---
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 Active 6925071 Problem Rdqynjy-Sndxq-Sixwl disease-like deformity of foot 356.1 Active 360921308 Problem Charcot foot due to diabetes mellitus E11.610 Active 03387809 Problem Charcot ankle M14.679 Active 256509 008 Problem Type II or unspecified type diabetes mellitus with neurological manifestations, not stated as uncontrolled E11.49 Active 83765325 Problem History of hypothyroidism Z86.39 Acti ve 452566875 Problem Type 2 diabetes mellitus without complications E11 .9 Active 807774300 Problem Chronic renal failure, unspecified stage N18.9 Active 53225984 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 Active 118173675 Problem Essential hypertension I10 Active 70985280 Problem Type 2 diabetes mellitus with hyperglycemia E11.65 Active 90932751 Problem Type 2 diabetes mellitus wit h diabetic chronic kidney disease, 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 Active 095724 003 Problem Difficulty walking R26.2 Active 7 48274979 Problem 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.2 A ctive 805234514 Problem End stage renal disease N18.6 Active 002483327 Problem Mixed hyperlipidemia E78.2 Active 122110079 ALLERGIES No Information ENCOUNTERS Encounter Location Date Diagnosis [facility] [address] [facility] [id number] [address] [place] [phone] Mar, Essential hypertension I10 ; 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 ; Type 2 diabetes mellitus with hyperglycemia E11.65 ; 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.2 and Mixed hyperlipidemia E78.2 [facility] [address] [facility] [id number] [address] [place] [id number] Feb, [facility] [address] [facility] [id number] [address] [place] [id number] Feb, Type II or unspecified type diabetes mellitus with neurological manifestations, not stated as uncontrolled E11.49 ; Cough R05 ; Essential hypertension I10 ; Hyperglycemia R73.9 and Hematuria, unspecified type R31.9 [facility] [address] [facility] [id number] [address] [place] [phone] Jan, HTN (hypertension) I10 ; Typ e 2 diabetes mellitus with diabetic chronic kidney disease, 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 and 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.2 [facility] [address] [facility] [id number] [address] [place] [phone] Jan, [facility] [address] [facility] [id number] [address] [place] [phone] Oct, Type 2 diabetes mellitus wit hout complications E11.9 [place] [address] [facility] [id number] [address] [place] [phone] July, Mixed hyperlipidemia E78.2 [facility] [address] [facility] [id number] [address] [place] [phone] July, Type II or unspecified type diabetes mellitus with neurological manifestations, not stated as uncontrolled E11.49 ; Hyperglycemia R73.9 ; 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.2 and End stage renal disease N18.6 [place] [address] [facility] [id number] [address] [place] [phone] Jun, [facility] [address] [facility] [id number] [address] [place] [phone] Apr, Type 2 diabetes mellitus wit h diabetic chronic kidney disease, 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 and Seizures R56.9 [facility] [address] [facility] [id number] [address] [place] [id number] 13 Apr, 2017 Difficulty walking R26.2 [facility] [address] [facility] [id number] [address] [place] [phone] Mar, Hyperglycemia R73.9 and Zion roenteritis K52.9 [facility] [address] [facility] [id number] [address] [place] [phone] July, Chronic renal failure, unspe cified stage N18.9 [facility] [address] [facility] [id number] [address] [place] [phone] Jun, [facility] [address] [place] [id number] [address] [place] [phone] Jun, Chronic renal failure, unspe cified stage N18.9 [place] [address] [facility] [id number] [address] [place] [phone] Jun, Chronic renal failure, unspe cified stage N18.9 and Leg pain, diffuse, unspecified laterality M79.606 [place] [address] [address] [place] [id number] [address] [place] [phone] May, [facility] [address] [place] [id number] [address] [place] [phone] May, [facility] [address] [facility] [id number] [address] [place] [phone] May, [facility] [address] [place] [id number] [address] [place] [phone] May, Chronic renal failure, unspe cified stage N18.9 [facility] [address] [facility] [id number] [address] [place] [id number] Apr, Chronic renal failure, unspe cified stage N18.9 [facility] [address] [facility] [id number] [address] [place] [phone] Mar, [facility] [address] [place] [id number] [address] [place] [phone] Mar, Kidney dysfunction N28.9 ; T ype 2 diabetes mellitus with diabetic chronic kidney disease, 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 ; Essential hypertension I10 ; Charcot ankle M14.679 and Chronic renal failure, unspecified stage N18.9 [place] [address] [address] Dec, Kidney dysfunction N28.9 [place] [address] [address] Nov, Type 2 diabetes mellitus wit hout complications E11.9 ; Essential hypertension I10 ; Charcot ankle M14.679 ; History of hypothyroidism Z86.39 and History of anemia Z86.2 [place] [address] [address] Oct, Type 2 diabetes mellitus wit h diabetic chronic kidney disease, 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 [address] Oct, Onychocryptosis L60.0 ; Linda cot ankle M14.679 ; Pes planus M21.40 and Type 2 diabetes mellitus with diabetic chronic kidney disease, 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 [place] [address] [address] Sep, [place] [address] [address] Sep, [place] [address] [address] Aug, [place] [address] [address] Aug, Type 2 diabetes mellitus wit h diabetic chronic kidney disease, 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 ; Essential hypertension I10 ; Charcot ankle M14.679 ; History of hypothyroidism Z86.39 and History of anemia Z86.2 [place] [address] [address] May, Acute kidney injury N17.9 ; Essential hypertension I10 and Type 2 diabetes mellitus with diabetic chronic kidney disease, 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 [address] Mar, Foot pain M79.673 ; Charcot ankle M14.679 and Pes planus M21.40 [facility] [address] [facility] [id number] [address] [place] [phone] 04 Feb, 2015 Left foot pain M79.672 ; Vera rcot ankle M14.679 and Type II or unspecified type diabetes mellitus with neurological manifestations, not stated as uncontrolled E11.49 [facility] [address] [facility] [id number] [address] [place] [phone] 15 Dec, 2014 Hypoglycemia, unspecified E1 6.2 [facility] [address] [facility] [id number] [address] [place] [address] Dec, Left foot pain M79.672 [facility] [address] [place] [id number] [place] [phone] 13 Dec, 2014 Pain in left foot M79.672 ; Other specified soft tissue disorders M79.89 and Type 2 diabetes mellitus with diabetic neuropathy E11.40 [facility] [address] [facility] [id number] [address] [place] [phone] Jun, [facility] [address] [facility] [id number] [address] [place] [phone] Jun, [facility] [address] [place] [id number] [address] [place] [phone] May, [facility] [address] [facility] [id number] [address] [place] [phone] May, [facility] [address] [facility] [id number] [address] [place] [phone] Apr, [facility] [address] [facility] [id number] [address] [place] [phone] Apr, [facility] [address] [facility] [id number] [address] [place] [phone] Apr, [facility] [address] [facility] [id number] [address] [place] [phone] Apr, [facility] [address] [id number] [address] [place] [address], [place] [address] Mar, [facility] [address] [id number] [address] [place] [address], [place] [address] Mar, [facility] [address] [id number] [address] [place] [address], [place] [address] Feb, [facility] [address] [id number] [address] [place] [address], [place] [address] Feb, [facility] [address] [id number] [address] [place] [address], [place] [address] Feb, [facility] [address] [id number] [address] [place] [address], [place] [address] Feb, [facility] [address] [id number] [address] [place] [address], [place] [address] Oct, [facility] [address] [id number] [address] [place] [address], [place] [address] Oct, [facility] [address] [id number] [address] [place] [address], [place] [address] Oct, [facility] [address] [id number] [address] [place] [address], [place] [address] Oct, [facility] [address] [id number] [address] [place] [address], [place] [address] Oct, [facility] [address] [id number] [address] [place] [address], [place] [address] Oct, [facility] [address] [id number] [address] [place] [address], [place] [address] Oct, [facility] [address] [id number] [address] [place] [address], [place] [address] Oct, [facility] [address] [id number] [address] [place] [address], [place] [address] Aug, [facility] [address] [id number] [address] [place] [address], [place] [address] Aug, [facility] [address] [id number] [address] [place] [address], [place] [address] Apr, [facility] [address] [id number] [address] [place] [address], [place] [address] Apr, [facility] [address] [id number] [address] [place] [address], [place] [address] Apr, [facility] [address] [id number] [address] [place] [address], [place] [address] Apr, [facility] [address] [id number] [address] [place] [address], [place] [address] Apr, [facility] [address] [id number] [address] [place] [address], [place] [address] Apr, [facility] [address] [id number] [address] [place] [address], [place] [address] Apr, [facility] [address] [id number] [address] [place] [address], [place] [address] Apr, [facility] [address] [id number] [address] [place] [address], [place] [address] Mar, [facility] [address] [id number] [address] [place] [address], [place] [address] Mar, [facility] [address] [id number] [address] [place] [address], [place] [address] Mar, [facility] [address] [id number] [address] [place] [address], [place] [address] Mar, [facility] [address] [id number] [address] [place] [address], [place] [address] Mar, [facility] [address] [id number] [address] [place] [address], [place] [address] Mar, [facility] [address] [id number] [address] [place] [address], [place] [address] Mar, [facility] [address] [id number] [address] [place] [phone] Mar, [facility] [address] [id number] [address] [place] [phone] Mar, [facility] [address] [id number] [address] [place] [address] Mar, [facility] [address] [id number] [address] [place] [phone] Mar, [facility] [address] [id number] [address] [place] [address] Mar, [facility] [address] [id number] [address] [place] [address] Feb, [facility] [address] [id number] [address] [place] [phone] Feb, [facility] [address] [id number] [address] [place] [phone] Feb, [facility] [address] [id number] [address] [place] [phone] Feb, IMMUNIZATIONS No Known Immunizations SOCIAL HISTORY Never Assessed REASON FOR VISIT [facility] [place] SIGNS MED[place]S No [...]
--- OUTSIDE RECORDS SUMMARY | 2019-05-23 11:36 | XMS REPORT ---
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 Active 337306 003 Problem History of hypothyroidism Z86.39 Acti ve 022133370 Problem Essential hypertension I10 Active 91473522 Problem Mixed hyperlipidemia E78.2 Active 527200035 Problem End stage renal disease N18.6 Active 693119757 Problem Chronic renal failure, unspecified stage N18.9 Active 56171748 Problem Type 2 diabetes mellitus without complications E11 .9 Active 086820000 Problem 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.2 A ctive 572791020 Problem Difficulty walking R26.2 Active 7 49962501 Problem Charcot foot due to diabetes mellitus E11.610 Active 24010605 Problem Donrllm-Maarg-Kymfp disease-like deformity of foot 356.1 Active 910382953 Problem Type II or unspecified type diabetes mellitus with neurological manifestations, not stated as uncontrolled E11.49 Active 67394404 Problem Retinopathy due to secondary diabetes mellitus, with macular edema, 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 Active 1908201 Problem Charcot ankle M14.679 Active 548041 008 ALLERGIES No Information ENCOUNTERS Encounter Location Date Diagnosis [facility] [address] [facility] [id number] [address] [place] [phone] Feb, [facility] [address] [facility] [id number] [address] [place] [id number] 13 Jan, 2018 HTN (hypertension) I10 ; Typ e 2 diabetes mellitus with diabetic chronic kidney disease, 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 and 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.2 [facility] [address] [facility] [id number] [address] [place] [id number] Jan, [facility] [address] [facility] [id number] [address] [place] [phone] Oct, Type 2 diabetes mellitus wit hout complications E11.9 [facility] [address] [facility] [id number] [address] [place] [id number] July, Mixed hyperlipidemia E78.2 [facility] [address] [facility] [id number] [address] [place] [address] July, Type II or unspecified type diabetes mellitus with neurological manifestations, not stated as uncontrolled E11.49 ; Hyperglycemia R73.9 ; 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.2 and End stage renal disease N18.6 [facility] [address] [facility] [id number] [address] [place] [phone] Jun, [facility] [address] [facility] [id number] [address] [place] [id number] Apr, Type 2 diabetes mellitus wit h diabetic chronic kidney disease, 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 and Seizures R56.9 [facility] [address] [facility] [id number] [address] [place] [phone] Apr, Difficulty walking R26.2 [facility] [address] [facility] [id number] [address] [place] [phone] Mar, Hyperglycemia R73.9 and Zion roenteritis K52.9 [facility] [address] [facility] [id number] [address] [place] [phone] July, Chronic renal failure, unspe cified stage N18.9 [facility] [address] [facility] [id number] [address] [place] [phone] Jun, [facility] [address] [facility] [id number] [address] [place] [phone] Jun, Chronic renal failure, unspe cified stage N18.9 [facility] [address] [facility] [id number] [address] [place] [id number] Jun, Chronic renal failure, unspe cified stage N18.9 and Leg pain, diffuse, unspecified laterality M79.606 [facility] [address] [place] [id number] [address] [place] [id number] May, [facility] [address] [place] [id number] [address] [place] [phone] May, [facility] [address] [place] [id number] [address] [place] [id number] May, [facility] [address] [place] [id number] [address] [place] [id number] May, Chronic renal failure, unspe cified stage N18.9 [facility] [address] [place] [id number] [address] [place] [address] Apr, Chronic renal failure, unspe cified stage N18.9 [place] [address] [place] [id number] [address] [place] [phone] Mar, [facility] [address] [place] [id number] [address] [place] [address] Mar, Kidney dysfunction N28.9 ; T ype 2 diabetes mellitus with diabetic chronic kidney disease, 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 ; Essential hypertension I10 ; Charcot ankle M14.679 and Chronic renal failure, unspecified stage N18.9 [place] [id number] [place] [address] Dec, Kidney dysfunction N28.9 [place] [address] [place] [id number] [address] [place] [address] Nov, Type 2 diabetes mellitus wit hout complications E11.9 ; Essential hypertension I10 ; Charcot ankle M14.679 ; History of hypothyroidism Z86.39 and History of anemia Z86.2 [facility] [address] [place] [id number] [address] [place] [id number] Oct, Type 2 diabetes mellitus wit h diabetic chronic kidney disease, 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 [place] [id number] [place] [address] Oct, Onychocryptosis L60.0 ; Linda cot ankle M14.679 ; Pes planus M21.40 and Type 2 diabetes mellitus with diabetic chronic kidney disease, 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 [place] [address] [address] Sep, [place] [address] [address] Sep, [place] [address] [address] Aug, [place] [address] [address] Aug, Type 2 diabetes mellitus wit h diabetic chronic kidney disease, 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 ; Essential hypertension I10 ; Charcot ankle M14.679 ; History of hypothyroidism Z86.39 and History of anemia Z86.2 [place] [address] [address] May, Acute kidney injury N17.9 ; Essential hypertension I10 and Type 2 diabetes mellitus with diabetic chronic kidney disease, 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 [place] [address] [address] Mar, Foot pain M79.673 ; Charcot ankle M14.679 and Pes planus M21.40 [place] [address] [address] Feb, Left foot pain M79.672 ; Vera rcot ankle M14.679 and Type II or unspecified type diabetes mellitus with neurological manifestations, not stated as uncontrolled E11.49 [place] [address] [address] Dec, Hypoglycemia, unspecified E1 6.2 [place] [address] [place] [id number] [place] [address] 14 Dec, 2014 Left foot pain M79.672 [facility] [address] [id number] [address] [place] [id number] 13 Dec, 2014 Pain in left foot M79.672 ; Other specified soft tissue disorders M79.89 and Type 2 diabetes mellitus with diabetic neuropathy E11.40 [facility] [address] [id number] [address] [place] [id number] 14 Jun, 2014 [facility] [address] [id number] [address] [place] [phone] Jun, [facility] [address] [id number] [address] [place] [id number] 16 May, 2014 [facility] [address] [id number] [address] [place] [id number] 16 May, 2014 [facility] [address] [id number] [address] [place] [phone] 18 Apr, 2014 [facility] [address] [id number] [address] [place] [id number] 18 Apr, 2014 [facility] [address] [id number] [address] [place] [phone] Apr, [facility] [address] [id number] [address] [place] [phone] Apr, [facility] [address] [id number] [address] [place] [phone] Mar, [facility] [address] [id number] [address] [place] [phone] Mar, [facility] [address] [id number] [address] [place] [id number] Feb, [facility] [address] [id number] [address] [place] [phone] Feb, [facility] [address] [id number] [address] [place] [id number] Feb, [facility] [address] [id number] [address] [place] [address], [place] [address] Feb, [facility] [address] [id number] [address] [place] [address], [place] [address] Oct, [facility] [address] [id number] [address] [place] [address], [place] [address] Oct, [facility] [address] [id number] [address] [place] [address], [place] [address] Oct, [facility] [address] [id number] [address] [place] [address], [place] [address] Oct, [facility] [address] [id number] [address] [place] [address], [place] [address] Oct, [facility] [address] [id number] [address] [place] [address], [place] [address] Oct, [facility] [address] [id number] [address] [place] [address], [place] [address] Oct, [facility] [address] [id number] [address] [place] [address], [place] [address] Oct, [facility] [address] [id number] [address] [place] [address], [place] [address] Aug, [facility] [address] [id number] [address] [place] [address], [place] [address] Aug, [facility] [address] [id number] [address] [place] [address], [place] [address] Apr, [facility] [address] [id number] [address] [place] [address], [place] [address] Apr, [facility] [address] [id number] [address] [place] [address], [place] [address] Apr, [facility] [address] [id number] [address] [place] [address], [place] [address] Apr, [facility] [address] [id number] [facility] [place] [address] Apr, [facility] [address] [id number] [address] [place] [address], [place] [address] Apr, [facility] [address] [id number] [address] [place] [address], [place] [address] Apr, [facility] [address] [id number] [address] [place] [address], [place] [address] Apr, [facility] [address] [id number] [address] [place] [address], [place] [address] Mar, [facility] [address] [id number] [address] [place] [address], [place] [address] Mar, [facility] [address] [id number] [address] [place] [address], [place] [address] Mar, [facility] [address] [id number] [address] [place] [address], [place] [address] Mar, [facility] [address] [id number] [address] [place] [address], [place] [address] Mar, [facility] [address] [id number] [address] [place] [address], [place] [address] Mar, [facility] [address] [id number] [address] [place] [address], [place] [address] Mar, [facility] [address] [id number] [address] [place] [address], [place] [address] Mar, [facility] [address] [id number] [address] [place] [address], [place] [address] Mar, [facility] [address] [id number] [address] [place] [address], [place] [address] Mar, [facility] [address] [id number] [address] [place] [address], [place] [address] Mar, [facility] [address] [id number] [place] [address] Mar, [facility] [address] [facility] [id number] [address] [place] [phone] Feb, [facility] [address] [facility] [id number] [address] [place] [phone] Feb, [facility] [address] [facility] [id number] [address] [place] [address] Feb, [facility] [address] [facility] [id number] [address] [place] [id number] Feb, IMMUNIZATIONS No Known Immunizations SOCIAL HISTORY Never Assessed REASON FOR VISIT Blood pressure check-BOBO bedolla havent taking meds today PLAN OF CARE VITAL SIGNS Height 64 in 2018-01-25 Blood pressure systolic 204 mmHg 2018-01-25 Blood pressure diastolic 104 mmHg 2018-01-25 MEDICATIONS Medication Instructions Dosage Frequency Start Date End Date Duration S tatus NovoLog Flexpen 100 UNIT/ML Subcutaneous 3 times a day Injec t before meals per sliding scale 8h Unknown Test strips subcutaneously 3 times a day test blood sugar 8h Apr Unknown Tums 500 MG 2 tablets with meals and 1 tablet with snacks Unknown Vitamin D 50,0000 Orally once weekly Unknown FreeStyle Lite - Unknown Vitamin C 500 mg Orally Once a day 1 tablet 24h Unknown Dialysis Safety Syringe/Needle 22G X 1-1/2 Unknown Glucometer subcutaneously 3 times a day test blood sugar 8h Apr, Unknown Levemir FlexTouch 100 UNIT/ML Subcutaneous once a day at HS 10 units Unknown FreeStyle Lite Test N/A In Vitro 2 times a day test blood sugar 12h Unknown Metoprolol Succinate ER 100 MG Orally Once a day 1 tablet 24h Active Norvasc 10 MG Orally Once a day 1 tablet 24h Unknown Lipitor 40 MG Orally Once a day 1 tablet 24h July, 30 days Unknown Ferrous Sulfate 325 (65 Fe) MG Orally Once a day 1 tablet 24h Active Levetiracetam 750 MG Orally daily at noon on / /WED/WED and the after Dialysis on // 1 tablet Unknown RESULTS No Results PROCEDURES No Known procedures [...]
--- OUTSIDE RECORDS SUMMARY | 2019-05-23 11:36 | XMS REPORT ---
Author Author Antoine POLLARD [facility] Address [address] [place] [address] Care Team Providers Care Dermatology Specialist Name Role Phone TERRY POLLARD Unavailable PROBLEMS Type Condition ICD9-CM Code NYJ80-BS Code Onset Dates Condition S tatus SNOMED Code Problem Type 2 diabetes mellitus wit h diabetic chronic kidney disease, 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 Active 706188 003 Problem History of hypothyroidism Z86.39 Acti ve 032194171 Problem Essential hypertension I10 Active 87334022 Problem Mixed hyperlipidemia E78.2 Active 147219392 Problem End stage renal disease N18.6 Active 283685652 Problem Chronic renal failure, unspecified stage N18.9 Active 63221640 Problem Type 2 diabetes mellitus without complications E11 .9 Active 361611775 Problem 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.2 A ctive 896071365 Problem Difficulty walking R26.2 Active 7 51180366 Problem Charcot foot due to diabetes mellitus E11.610 Active 70946449 Problem Fbkddyu-Mupqv-Egnfm disease-like deformity of foot 356.1 Active 380692417 Problem Type II or unspecified type diabetes mellitus with neurological manifestations, not stated as uncontrolled E11.49 Active 54148260 Problem Retinopathy due to secondary diabetes mellitus, with macular edema, 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 Active 1688290 Problem Charcot ankle M14.679 Active 420018 008 ALLERGIES No Known Allergies ENCOUNTERS Encounter Location Date Diagnosis [facility] [address] [facility] [id number] [address] [place] [address] July, Mixed hyperlipidemia E78.2 [facility] [address] [facility] [id number] [address] [place] [address] July, Type II or unspecified type diabetes mellitus with neurological manifestations, not stated as uncontrolled E11.49 ; Hyperglycemia R73.9 ; 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.2 and End stage renal disease N18.6 [facility] [address] [facility] [id number] [address] [place] [address] Jun, [facility] [address] [facility] [id number] [address] [place] [address] Apr, Type 2 diabetes mellitus wit h diabetic chronic kidney disease, 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 and Seizures R56.9 [facility] [address] [facility] [id number] [address] [place] [id number] 13 Apr, [address] [facility] [address] [facility] [id number] [address] [place] [address] Mar, Hyperglycemia R73.9 and [place] roenteritis K52.9 [place] [address] [facility] [id number] [address] [place] [address] July, Chronic renal failure, unspe cified stage N18.9 [facility] [address] [facility] [id number] [address] [place] [address] Jun, [facility] [address] [facility] [id number] [address] [place] [address] Jun, Chronic renal failure, unspe cified stage N18.9 [facility] [address] [facility] [id number] [address] [place] [address] Jun, Chronic renal failure, unspe cified stage N18.9 and Leg pain, diffuse, unspecified laterality M79.606 [facility] [address] [facility] [id number] [address] [place] [address] May, [facility] [address] [facility] [id number] [address] [place] [address] May, [facility] [address] [facility] [id number] [address] [place] [address] May, [facility] [address] [facility] [id number] [address] [place] [address] May, Chronic renal failure, unspe cified stage N18.9 [place] [address] [address] Apr, Chronic renal failure, unspe cified stage N18.9 [place] [address] [address] Mar, [place] [address] [address] Mar, Kidney dysfunction N28.9 ; T ype 2 diabetes mellitus with diabetic chronic kidney disease, 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 ; Essential hypertension I10 ; Charcot ankle M14.679 and Chronic renal failure, unspecified stage N18.9 [place] [address] [address] Dec, Kidney dysfunction N28.9 [place] [address] [address] Nov, Type 2 diabetes mellitus wit hout complications E11.9 ; Essential hypertension I10 ; Charcot ankle M14.679 ; History of hypothyroidism Z86.39 and History of anemia Z86.2 [place] [address] [address] Oct, Type 2 diabetes mellitus wit h diabetic chronic kidney disease, 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 [place] [address] [address] Oct, Onychocryptosis L60.0 ; Linda cot ankle M14.679 ; Pes planus M21.40 and Type 2 diabetes mellitus with diabetic chronic kidney disease, 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 [place] [address] [address] Sep, [place] [address] [address] Sep, [place] [address] [address] Aug, [facility] [id number] [place] [address] 09 Aug, 2015 Type 2 diabetes mellitus wit h diabetic chronic kidney disease, 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 ; Essential hypertension I10 ; Charcot ankle M14.679 ; History of hypothyroidism Z86.39 and History of anemia Z86.2 [place] [address] [address] 05 May, 2015 Acute kidney injury N17.9 ; Essential hypertension I10 and Type 2 diabetes mellitus with diabetic chronic kidney disease, 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 [place] [address] [address] Mar, Foot pain M79.673 ; Charcot ankle M14.679 and Pes planus M21.40 [place] [address] [address] Feb, Left foot pain M79.672 ; Vera rcot ankle M14.679 and Type II or unspecified type diabetes mellitus with neurological manifestations, not stated as uncontrolled E11.49 [place] [address] [address] Dec, Hypoglycemia, unspecified E1 6.2 [place] [address] [address] 14 Dec, 2014 Left foot pain M79.672 [place] [address] [place] [id number] [place] [address] Dec, Pain in left foot M79.672 ; Other specified soft tissue disorders M79.89 and Type 2 diabetes mellitus with diabetic neuropathy E11.40 [place] [address] [place] [id number] [address] [place] [address] Jun, [place] [address] [address] Jun, [place] [address] [address] 16 May, 2014 [facility] [address] [id number] [address] [place] [address], [place] [address] 16 May, 2014 [facility] [address] [id number] [address] [place] [address], [place] [address] Apr, [facility] [address] [id number] [address] [place] [address], [place] [address] Apr, [facility] [address] [id number] [address] [place] [address], [place] [address] Apr, [facility] [address] [id number] [address] [place] [address], [place] [address] Apr, [facility] [address] [id number] [address] [place] [address], [place] [address] Mar, [facility] [address] [id number] [address] [place] [address], [place] [address] Mar, [facility] [address] [id number] [address] [place] [address], [place] [address] Feb, [facility] [address] [id number] [address] [place] [address], [place] [address] Feb, [facility] [address] [id number] [address] [place] [address], [place] [address] Feb, [facility] [address] [id number] [address] [place] [address], [place] [address] Feb, [facility] [address] [id number] [address] [place] [address], [place] [address] Oct, [facility] [address] [id number] [address] [place] [address], [place] [address] Oct, [facility] [address] [id number] [address] [place] [address], [place] [address] Oct, [facility] [address] [id number] [address] [place] [address], [place] [address] Oct, [facility] [address] [id number] [facility] [place] [address] Oct, [facility] [address] [id number] [address] [place] [address], [place] [address] Oct, [facility] [address] [id number] [address] [place] [address], [place] [address] Oct, [facility] [address] [id number] [address] [place] [address], [place] [address] Oct, [facility] [address] [id number] [address] [place] [address], [place] [address] Aug, [facility] [address] [id number] [address] [place] [address], [place] [address] Aug, [facility] [address] [id number] [address] [place] [address], [place] [address] Apr, [facility] [address] [id number] [address] [place] [address], [place] [address] Apr, [facility] [address] [id number] [address] [place] [address], [place] [address] Apr, [facility] [address] [id number] [address] [place] [address], [place] [address] Apr, [facility] [address] [id number] [address] [place] [address], [place] [address] Apr, [facility] [address] [id number] [address] [place] [address], [place] [address] Apr, [facility] [address] [id number] [address] [place] [address], [place] [address] Apr, [facility] [address] [id number] [address] [place] [address], [place] [address] Apr, [facility] [address] [id number] [address] [place] [address], [place] [address] Mar, [facility] [address] [id number] [address] [place] [address] Mar, [facility] [address] [id number] [address] [place] [address] Mar, [facility] [address] [id number] [address] [place] [address] Mar, [facility] [address] [id number] [address] [place] [address] Mar, [facility] [address] [id number] [address] [place] [address] Mar, [facility] [address] [id number] [address] [place] [address] Mar, [facility] [address] [id number] [address] [place] [address] Mar, [facility] [address] [id number] [address] [place] [address] Mar, [facility] [address] [id number] [address] [place] [address] Mar, [facility] [address] [id number] [address] [place] [address] Mar, [facility] [address] [id number] [address] [place] [address] Mar, [facility] [address] [id number] [address] [place] [phone] Feb, [facility] [address] [id number] [address] [place] [address] Feb, [facility] [address] [id number] [address] [place] [phone] Feb, [facility] [address] [id number] [address] [place] [address] Feb, IMMUNIZATIONS No Known Immunizations SOCIAL HISTORY Never Assessed REASON FOR VISIT Diabetes- Spencer FAJARDO PLAN OF CARE Activity Details Follow Up 3 Months Reason:DM VITAL SIGNS Height 64 in 2017-07-28 Weight 180.3 lbs 2017-07-28 Temperature 99.1 degrees Fahrenheit 2017-07-28 Heart Rate 88 bpm 2017-07-28 Respiratory Rate 24 2017-07-28 BMI 30.95 kg/m2 2017-07-28 Blood pressure systolic 145 mmHg 2017-07-28 Blood pressure diastolic 75 mmHg 2017-07-28 MEDICATIONS Medication Instructions Dosage Frequency Start Date End Date Duration S tatus Glucometer subcutaneously 3 times a day test blood sugar 8h Apr, Active Metoprolol Succinate ER 100 MG Orally Once a day 1 tablet 24h Active FreeStyle Lite - Active Test strips subcutaneously 3 times a day test blood sugar 8h Apr Active Levemir FlexTouch 100 UNIT/ML Subcutaneous once a day at HS 10 units Active Tums 500 MG 2 tablets with meals and 1 tablet with snacks Active Vitamin C 500 mg Orally Once a day 1 tablet 24h Active FreeStyle Lite Test N/A In Vitro 2 times a day test blood sugar 12h Active Dialysis Safety Syringe/Needle 22G X 1-03/16 Active Levetiracetam 750 MG Orally daily at noon on / /WED/WED and the after Dialysis on // 1 tablet Active Norvasc 10 MG Orally Once a day 1 tablet 24h Active NovoLog Flexpen 100 UNIT/ML Subcutaneous 3 times a day Injec t before meals per sliding scale 8h Active Vitamin D 50,0000 Orally once weekly Active Ferrous Sulfate 325 (65 Fe) MG Orally Once a day 1 tablet 24h Active RESULTS No Results PROCEDURES Procedure Date Ordered Result Body Site LAB [facility] July 28, 2017 [facility] VISIT ESTABLISHED PATIENT July 28, 2017 MIRIAM ADHIKARI* July 28, 2017 INSTRUCTIONS MEDICATIONS ADMINISTERED No Known Medications MEDICAL (GENERAL) HISTORY Type Description Date Medical History diabetes Type II Medical History hypertension Medical History Charcot foot due to diabetes mellitus Medical History kidney failure with dialysis Medical History anemia secondary to renal failure Surgical History Dialysis shunt Hospitalization History ER for low blood sugar 05/28
--- OUTSIDE RECORDS SUMMARY | 2019-05-23 11:36 | XMS REPORT ---
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 Active 730211 003 Problem History of hypothyroidism Z86.39 Acti ve 256674992 Problem Essential hypertension I10 Active 75832664 Problem Mixed hyperlipidemia E78.2 Active 973327430 Problem End stage renal disease N18.6 Active 892502928 Problem Chronic renal failure, unspecified stage N18.9 Active 11916564 Problem Type 2 diabetes mellitus without complications E11 .9 Active 333520943 Problem 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.2 A ctive 049528661 Problem Difficulty walking R26.2 Active 7 19003378 Problem Charcot foot due to diabetes mellitus E11.610 Active 72069232 Problem Odkqdmb-Sbeca-Frwsw disease-like deformity of foot 356.1 Active 841597516 Problem Type II or unspecified type diabetes mellitus with neurological manifestations, not stated as uncontrolled E11.49 Active 51331727 Problem Retinopathy due to secondary diabetes mellitus, with macular edema, 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 Active 4177446 Problem Charcot ankle M14.679 Active 849256 008 ALLERGIES No Known Allergies ENCOUNTERS Encounter Location Date Diagnosis [facility] [address] [facility] [id number] [address] [place] [phone] Feb, [facility] [address] [facility] [id number] [address] [place] [id number] 13 Jan, 2018 HTN (hypertension) I10 ; Typ e 2 diabetes mellitus with diabetic chronic kidney disease, 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 and 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.2 [facility] [address] [id number] [address] [place] [phone] Jan, [facility] [address] [facility] [id number] [address] [place] [address] Oct, Type 2 diabetes mellitus wit hout complications E11.9 [facility] [address] [facility] [id number] [address] [place] [phone] July, Mixed hyperlipidemia E78.2 [facility] [address] [facility] [id number] [address] [place] [address] July, Type II or unspecified type diabetes mellitus with neurological manifestations, not stated as uncontrolled E11.49 ; Hyperglycemia R73.9 ; 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.2 and End stage renal disease N18.6 [facility] [address] [facility] [id number] [address] [place] [phone] Jun, [facility] [address] [facility] [id number] [address] [place] [id number] Apr, Type 2 diabetes mellitus wit h diabetic chronic kidney disease, 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 and Seizures R56.9 [facility] [address] [facility] [id number] [address] [place] [phone] Apr, Difficulty walking R26.2 [facility] WALK IN [facility] [address] [facility] [id number] [address] [place] [address] Mar, Hyperglycemia R73.9 and Zion roenteritis K52.9 [facility] [address] [id number] [address] [place] [address] July, Chronic renal failure, unspe cified stage N18.9 [facility] [address] [facility] [id number] [address] [place] [id number] Jun, [facility] [address] [facility] [id number] [address] [place] [address] Jun, Chronic renal failure, unspe cified stage N18.9 [facility] [address] [address] Jun, Chronic renal failure, unspe cified stage N18.9 and Leg pain, diffuse, unspecified laterality M79.606 [facility] [address] [address] May, [facility] [address] [address] May, [facility] [address] [address] May, [facility] [address] [address] May, Chronic renal failure, unspe cified stage N18.9 [place] [address] [address] Apr, Chronic renal failure, unspe cified stage N18.9 [place] [address] [address] Mar, [facility] [address] [address] Mar, Kidney dysfunction N28.9 ; T ype 2 diabetes mellitus with diabetic chronic kidney disease, 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 ; Essential hypertension I10 ; Charcot ankle M14.679 and Chronic renal failure, unspecified stage N18.9 [place] [address] [address] Dec, Kidney dysfunction N28.9 [place] [address] [place] [id number] [place] [address] Nov, Type 2 diabetes mellitus wit hout complications E11.9 ; Essential hypertension I10 ; Charcot ankle M14.679 ; History of hypothyroidism Z86.39 and History of anemia Z86.2 [place] [address] [place] [id number] [address] [place] [address] Oct, Type 2 diabetes mellitus wit h diabetic chronic kidney disease, 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 [place] [address] [place] [id number] [address] [place] [address] Oct, Onychocryptosis L60.0 ; Linda cot ankle M14.679 ; Pes planus M21.40 and Type 2 diabetes mellitus with diabetic chronic kidney disease, 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 [place] [address] [address] Sep, [place] [address] [address] Sep, [place] [address] [address] Aug, [place] [address] [address] Aug, Type 2 diabetes mellitus wit h diabetic chronic kidney disease, 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 ; Essential hypertension I10 ; Charcot ankle M14.679 ; History of hypothyroidism Z86.39 and History of anemia Z86.[address] [address] May, Acute kidney injury N17.9 ; Essential hypertension I10 and Type 2 diabetes mellitus with diabetic chronic kidney disease, 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 [address] Mar, Foot pain M79.673 ; Charcot ankle M14.679 and Pes planus M21.[address] [address] Feb, Left foot pain M79.672 ; Vera rcot ankle M14.679 and Type II or unspecified type diabetes mellitus with neurological manifestations, not stated as uncontrolled E11.[address] [address] Dec, Hypoglycemia, unspecified E1 6.2 [place] [address] [id number] [address] [place] [address] 14 Dec, 2014 Left foot pain M79.672 [facility] [address] [id number] [address] [place] [address] 13 Dec, 2014 Pain in left foot M79.672 ; Other specified soft tissue disorders M79.89 and Type 2 diabetes mellitus with diabetic neuropathy E11.40 [facility] [address] [id number] [address] [place] [address] 14 Jun, 2014 [facility] [address] [id number] [address] [place] [id number] Jun, [facility] [address] [id number] [address] [place] [id number] 16 May, 2014 [facility] [address] [id number] [address] [place] [address] 16 May, 2014 [facility] [address] [id number] [address] [place] [phone] 18 Apr, 2014 [facility] [address] [id number] [address] [place] [id number] 18 Apr, 2014 [facility] [address] [id number] [address] [place] [id number] Apr, [facility] [address] [id number] [address] [place] [address] Apr, [facility] [address] [id number] [address] [place] [id number] Mar, [facility] [address] [id number] [address] [place] [address] Mar, [facility] [address] [id number] [address] [place] [id number] Feb, [facility] [address] [id number] [address] [place] [address] Feb, [facility] [address] [id number] [address] [place] [address] [place] [address] Feb, [facility] [address] [id number] [address] [place] [address], [place] [address] Feb, [facility] [address] [id number] [address] [place] [address], [place] [address] Oct, [facility] [address] [id number] [address] [place] [address], [place] [address] Oct, [facility] [address] [id number] [address] [place] [address], [place] [address] Oct, [facility] [address] [id number] [address] [place] [address], [place] [address] Oct, [facility] [address] [id number] [address] [place] [address], [place] [address] Oct, [facility] [address] [id number] [address] [place] [address], [place] [address] Oct, [facility] [address] [id number] [address] [place] [address], [place] [address] Oct, [facility] [address] [id number] [address] [place] [address], [place] [address] Oct, [facility] [address] [id number] [address] [place] [address], [place] [address] Aug, [facility] [address] [id number] [address] [place] [address], [place] [address] Aug, [facility] [address] [id number] [address] [place] [address], [place] [address] Apr, [facility] [address] [id number] [address] [place] [address], [place] [address] Apr, [facility] [address] [id number] [address] [place] [address], [place] [address] Apr, [facility] [address] [id number] [address] [place] [address], [place] [address] Apr, [facility] [address] [id number] [address] [place] [address], [place] [address] Apr, [facility] [address] [id number] [address] [place] [address], [place] [address] Apr, [facility] [address] [id number] [address] [place] [address], [place] [address] Apr, [facility] [address] [id number] [address] [place] [address], [place] [address] Apr, [facility] [address] [id number] [address] [place] [address], [place] [address] Mar, [facility] [address] [id number] [address] [place] [address], [place] [address] Mar, [facility] [address] [id number] [address] [place] [address], [place] [address] Mar, [facility] [address] [id number] [address] [place] [address], [place] [address] Mar, [facility] [address] [id number] [address] [place] [address], [place] [address] Mar, [facility] [address] [id number] [address] [place] [address], [place] [address] Mar, [facility] [address] [id number] [address] [place] [address], [place] [address] Mar, [facility] [address] [id number] [address] [place] [address], [place] [address] Mar, [facility] [address] [id number] [address] [place] [address], [place] [address] Mar, [facility] [address] [id number] [address] [place] [address], [place] [address] Mar, [facility] [address] [id number] [address] [place] [address], [place] [address] Mar, [facility] [address] [id number] [address] [place] [phone] Mar, [facility] [address] [id number] [address] [place] [id number] Feb, [facility] [address] [id number] [address] [place] [phone] Feb, [facility] [address] [facility] [id number] [address] [place] [phone] Feb, [facility] [address] [id number] [address] [place] [phone] Feb, IMMUNIZATIONS No Known Immunizations SOCIAL HISTORY Never Assessed REASON FOR VISIT Blood Pressure has been running high for about a month. The patient was seen as a nurse visit in prior to being sent to walk in care.--SCOTTY Parmar PLAN OF CARE Activity Details Follow Up See PCP as scheduled. Do not miss appointment. I gave him a written appointment reminder with the date and time. Reason: VITAL SIGNS Height 64 in 2018-01-25 Weight 189 lbs 2018-01-25 Temperature 97.0 degrees Fahrenheit 2018-01-25 Heart Rate 68 bpm 2018-01-25 Respiratory Rate 20 2018-01-25 BMI 32.44 kg/m2 2018-01-25 Blood pressure systolic 196 mmHg 2018-01-25 Blood pressure diastolic 104 mmHg 2018-01-25 MEDICATIONS Medication Instructions Dosage Frequency Start Date End Date Duration S tatus Levemir FlexTouch 100 UNIT/ML Subcutaneous once a day at HS 10 units Active Levetiracetam 750 MG Orally daily at noon on /WED/WED and the after Dialysis on / 1 tablet Not-Taking Vitamin D 50,0000 Orally once weekly Active NovoLog Flexpen 100 UNIT/ML Subcutaneous 3 times a day Injec t before meals per sliding scale 8h Active Norvasc 10 MG Orally Once a day 1 tablet 24h Not-Taking Acetaminophen 500 MG Orally every 6 hrs 4 capsule as needed 6h Active Furosemide 80 MG Orally Twice a day 1 tablet 12h Active Lipitor 40 MG Orally Once a day 1 tablet 24h July, 30 days Not-Taking Dialysis Safety Syringe/Needle 22G X 1-1/2 Not-Taking Vitamin C 500 mg Orally Once a day 1 tablet 24h Not-Taking FreeStyle Lite - Active Metoprolol Succinate ER 100 MG Orally Once a day 1 tablet 24h Active Tums 500 MG 2 tablets with meals and 1 tablet with snacks Active FreeStyle Lite Test N/A In Vitro 2 times a day test blood sugar 12h Active Glucometer subcutaneously 3 times a day test blood sugar 8h Apr, Active Test strips subcutaneously 3 times a day test blood sugar 8h Apr Active Ferrous Sulfate 325 (65 Fe) MG Orally Once a day 1 tablet 24h Active RESULTS No Results PROCEDURES Procedure Date Ordered Result Body Site [facility] VISIT ESTABLISHED PATIENT Jan 25, 2018 INSTRUCTIONS MEDICATIONS ADMINISTERED No Known Medications MEDICAL (GENERAL) HISTORY Type Description Date Medical History diabetes Type II Medical History hypertension Medical History Charcot foot due to diabetes mellitus Medical History kidney failure with dialysis Medical History anemia secondary to renal failure Surgical History Dialysis shunt Hospitalization History ER for low blood sugar 05/28
--- OUTSIDE RECORDS SUMMARY | 2019-05-23 11:36 | XMS REPORT ---
Author Author Antoine POLLARD [facility] Address [address] [place] [address] Care Team Providers Care Shaker Screen Operator Name Role Phone TERRY POLLARD Unavailable PROBLEMS Type Condition ICD9-CM Code YSP25-HD Code Onset Dates Condition S tatus SNOMED Code Problem Type 2 diabetes mellitus wit h diabetic chronic kidney disease, 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 Active 661568 003 Problem History of hypothyroidism Z86.39 Acti ve 917898466 Problem Essential hypertension I10 Active 31571444 Problem Mixed hyperlipidemia E78.2 Active 093387718 Problem End stage renal disease N18.6 Active 993923463 Problem Chronic renal failure, unspecified stage N18.9 Active 34309348 Problem Type 2 diabetes mellitus without complications E11 .9 Active 881913533 Problem 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.2 A ctive 346012725 Problem Difficulty walking R26.2 Active 7 03579192 Problem Charcot foot due to diabetes mellitus E11.610 Active 37340276 Problem 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.1 Active 361720866 Problem Type II or unspecified type diabetes mellitus with neurological manifestations, not stated as uncontrolled E11.49 Active 99798525 Problem Retinopathy due to secondary diabetes mellitus, with macular edema, 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 Active 0765845 Problem Charcot ankle M14.679 Active 361677 008 ALLERGIES No Information ENCOUNTERS Encounter Location Date Diagnosis [facility] [address] [facility] [id number] [address] [place] [phone] Mar, [facility] [address] [facility] [id number] [address] [place] [phone] Feb, [facility] [address] [facility] [id number] [address] [place] [phone] Feb, Type II or unspecified type diabetes mellitus with neurological manifestations, not stated as uncontrolled E11.49 ; Cough R05 ; Essential hypertension I10 ; Hyperglycemia R73.9 and Hematuria, unspecified type R31.9 [facility] [address] [place] [id number] [address] [place] [phone] Jan, HTN (hypertension) I10 ; Typ e 2 diabetes mellitus with diabetic chronic kidney disease, 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 and 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.2 [facility] [id number] [place] [phone] Jan, [facility] [address] [place] [id number] [address] [place] [phone] Oct, Type 2 diabetes mellitus wit hout complications E11.9 [place] [address] [place] [id number] [place] [phone] July, Mixed hyperlipidemia E78.2 [facility] [address] [place] [id number] [address] [place] [phone] July, Type II or unspecified type diabetes mellitus with neurological manifestations, not stated as uncontrolled E11.49 ; Hyperglycemia R73.9 ; 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.2 and End stage renal disease N18.6 [place] [address] [place] [id number] [address] [place] [phone] Jun, [facility] [address] [place] [id number] [address] [place] [id number] Apr, Type 2 diabetes mellitus wit h diabetic chronic kidney disease, 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 [address] [facility] [id number] [address] [place] [phone] Mar, Hyperglycemia R73.9 and Zion roenteritis K52.9 [facility] [address] [place] [id number] [address] [place] [phone] July, Chronic renal failure, unspe cified stage N18.9 [facility] [address] [facility] [id number] [address] [place] [phone] Jun, [facility] [address] [facility] [id number] [address] [place] [phone] Jun, Chronic renal failure, unspe cified stage N18.9 [facility] [address] [facility] [id number] [address] [place] [phone] Jun, Chronic renal failure, unspe cified stage N18.9 and Leg pain, diffuse, unspecified laterality M79.606 [facility] [address] [facility] [id number] [address] [place] [phone] May, [facility] [address] [place] [id number] [address] [place] [phone] May, [facility] [address] [place] [id number] [address] [place] [phone] May, [facility] [address] [facility] [id number] [address] [place] [phone] May, Chronic renal failure, unspe cified stage N18.9 [facility] [address] [facility] [id number] [address] [place] [phone] Apr, Chronic renal failure, unspe cified stage N18.9 [facility] [address] [place] [id number] [address] [place] [phone] Mar, [facility] [address] [facility] [id number] [address] [place] [phone] Mar, Kidney dysfunction N28.9 ; T ype 2 diabetes mellitus with diabetic chronic kidney disease, 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 ; Essential hypertension I10 ; Charcot ankle M14.679 and Chronic renal failure, unspecified stage N18.9 [facility] [address] [place] [id number] [address] [place] [phone] 14 Dec, 2015 Kidney dysfunction N28.9 [facility] [id number] [place] [phone] Nov, Type 2 diabetes mellitus wit hout complications E11.9 ; Essential hypertension I10 ; Charcot ankle M14.679 ; History of hypothyroidism Z86.39 and History of anemia Z86.2 [place] [address] [place] [address] Oct, Type 2 diabetes mellitus wit h diabetic chronic kidney disease, 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 [place] [address] [address] Oct, Onychocryptosis L60.0 ; Linda cot ankle M14.679 ; Pes planus M21.40 and Type 2 diabetes mellitus with diabetic chronic kidney disease, 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 [place] [address] [address] Sep, [place] [address] [address] Sep, [place] [address] [phone] Aug, [place] [address] [address] Aug, Type 2 diabetes mellitus wit h diabetic chronic kidney disease, 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 ; Essential hypertension I10 ; Charcot ankle M14.679 ; History of hypothyroidism Z86.39 and History of anemia Z86.2 [place] [address] [place] [id number] [address] [place] [phone] May, Acute kidney injury N17.9 ; Essential hypertension I10 and Type 2 diabetes mellitus with diabetic chronic kidney disease, 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 [place] [address] [place] [id number] [address] [place] [phone] Mar, Foot pain M79.673 ; Charcot ankle M14.679 and Pes planus M21.40 [place] [address] [place] [address] 04 Feb, 2015 Left foot pain M79.672 ; Vera rcot ankle M14.679 and Type II or unspecified type diabetes mellitus with neurological manifestations, not stated as uncontrolled E11.49 [facility] [address] [id number] [address] [place] [phone] 15 Dec, 2014 Hypoglycemia, unspecified E1 6.2 [facility] [address] [id number] [address] [place] [id number] 14 Dec, 2014 Left foot pain M79.672 [facility] [address] [id number] [address] [place] [id number] 13 Dec, 2014 Pain in left foot M79.672 ; Other specified soft tissue disorders M79.89 and Type 2 diabetes mellitus with diabetic neuropathy E11.40 [facility] [address] [id number] [address] [place] [phone] 14 Jun, 2014 [facility] [address] [id number] [address] [place] [phone] 13 Jun, 2014 [facility] [address] [id number] [address] [place] [phone] 16 May, 2014 [facility] [address] [id number] [address] [place] [phone] 16 May, 2014 [facility] [address] [id number] [address] [place] [phone] 18 Apr, 2014 [facility] [address] [id number] [address] [place] [phone] Apr, [facility] [address] [id number] [address] [place] [phone] Apr, [facility] [address] [id number] [address] [place] [phone] Apr, [facility] [address] [id number] [address] [place] [phone] Mar, [facility] [place] [facility] [address] [id number] [address] [place] [address], [place] [address] Mar, [facility] [address] [id number] [address] [place] [address], [place] [address] Feb, [facility] [address] [id number] [address] [place] [address], [place] [address] Feb, [facility] [address] [id number] [address] [place] [address], [place] [address] Feb, [facility] [address] [id number] [address] [place] [address], [place] [address] Feb, [facility] [address] [id number] [address] [place] [address], [place] [address] Oct, [facility] [address] [id number] [address] [place] [address], [place] [address] Oct, [facility] [address] [id number] [address] [place] [address], [place] [address] Oct, [facility] [address] [id number] [address] [place] [address], [place] [address] Oct, [facility] [address] [id number] [address] [place] [address], [place] [address] Oct, [facility] [address] [id number] [address] [place] [address], [place] [address] Oct, [facility] [address] [id number] [address] [place] [address], [place] [address] Oct, [facility] [address] [id number] [address] [place] [address], [place] [address] Oct, [facility] [address] [id number] [address] [place] [address], [place] [address] Aug, [facility] [address] [id number] [address] [place] [address], [place] [address] Aug, [facility] [address] [id number] [address] [place] [address], [place] [address] Apr, [facility] [address] [id number] [facility] [place] [address] Apr, [facility] [place] [facility] [address] [id number] [address] [place] [address], [place] [address] Apr, [facility] [address] [id number] [address] [place] [address], [place] [address] Apr, [facility] [place] [facility] [address] [id number] [address] [place] [address], [place] [address] Apr, [facility] [address] [id number] [address] [place] [address], [place] [address] Apr, [facility] [address] [id number] [address] [place] [address], [place] [address] Apr, [facility] [address] [id number] [address] [place] [address], [place] [address] Apr, [facility] [address] [id number] [address] [place] [address], [place] [address] Mar, [facility] [address] [id number] [address] [place] [address], [place] [address] Mar, [facility] [address] [id number] [address] [place] [address], [place] [address] Mar, [facility] [address] [id number] [address] [place] [address], [place] [address] Mar, [facility] [place] [facility] [address] [id number] [address] [place] [address], [place] [address] Mar, [facility] [place] [facility] [address] [id number] [address] [place] [address], [place] [address] Mar, [facility] [place] [facility] [address] [id number] [address] [place] [address], [place] [address] Mar, [facility] [place] [facility] [address] [id number] [address] [place] [address], [place] [address] Mar, [facility] [place] [facility] [address] [id number] [address] [place] [phone] Mar, [facility] [address] [id number] [address] [place] [phone] Mar, [facility] [address] [id number] [address] [place] [address] Mar, [facility] [address] [id number] [address] [place] [phone] Mar, [facility] [address] [id number] [address] [place] [phone] Feb, [facility] [address] [facility] [id number] [address] [place] [phone] Feb, [facility] [address] [facility] [id number] [address] [place] [phone] Feb, [facility] [address] [facility] [id number] [address] [place] [phone] Feb, IMMUNIZATIONS No Known Immunizations SOCIAL HISTORY Never Assessed REASON FOR VISIT Medical records request PLAN OF CARE VITAL SIGNS MEDICATIONS Unknown [...]
--- OUTSIDE RECORDS SUMMARY | 2019-05-23 11:36 | XMS REPORT ---
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 Active 858766 003 Problem History of hypothyroidism Z86.39 Acti ve 694469897 Problem Essential hypertension I10 Active 93969785 Problem Mixed hyperlipidemia E78.2 Active 869846907 Problem End stage renal disease N18.6 Active 552644152 Problem Chronic renal failure, unspecified stage N18.9 Active 04803283 Problem Type 2 diabetes mellitus without complications E11 .9 Active 235473943 Problem 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.2 A ctive 776737848 Problem Difficulty walking R26.2 Active 7 43129555 Problem Charcot foot due to diabetes mellitus E11.610 Active 85935186 Problem Uuburey-Zkfdg-Pgeee disease-like deformity of foot 356.1 Active 199167812 Problem Type II or unspecified type diabetes mellitus with neurological manifestations, not stated as uncontrolled E11.49 Active 23691470 Problem Retinopathy due to secondary diabetes mellitus, with macular edema, 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 Active 6370775 Problem Charcot ankle M14.679 Active 249123 008 ALLERGIES No Information ENCOUNTERS Encounter Location Date Diagnosis [facility] [address] [facility] [id number] [address] [place] [address] Dec, [facility] [address] [facility] [id number] [address] [place] [address] Oct, Type 2 diabetes mellitus wit hout complications E11.9 [facility] [address] [facility] [id number] [address] [place] [address] July, Mixed hyperlipidemia E78.2 [facility] [address] [facility] [id number] [address] [place] [address] July, Type II or unspecified type diabetes mellitus with neurological manifestations, not stated as uncontrolled E11.49 ; Hyperglycemia R73.9 ; 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.2 and End stage renal disease N18.6 [facility] [address] [facility] [id number] [address] [place] [id number] Jun, [facility] [address] [facility] [id number] [address] [place] [address] Apr, Type 2 diabetes mellitus wit h diabetic chronic kidney disease, unspecified CKD stage E11.22 and Seizures R56.9 [facility] [address] [facility] [id number] [address] [place] [id number] 13 Apr, 2017 Difficulty walking R26.2 [facility] [address] [facility] [id number] [address] [place] [address] Mar, Hyperglycemia R73.9 and Zion roenteritis K52.9 [facility] [address] [facility] [id number] [address] [place] [address] July, Chronic renal failure, unspe cified stage N18.9 [facility] [address] [facility] [id number] [address] [place] [id number] Jun, [facility] [address] [facility] [id number] [address] [place] [address] Jun, Chronic renal failure, unspe cified stage N18.9 [facility] [address] [facility] [id number] [address] [place] [address] Jun, Chronic renal failure, unspe cified stage N18.9 and Leg pain, diffuse, unspecified laterality M79.606 [facility] [address] [facility] [id number] [address] [place] [address] May, [facility] [address] [place] [id number] [address] [place] [address] May, [facility] [address] [facility] [id number] [address] [place] [address] May, [facility] [address] [place] [id number] [address] [place] [address] May, Chronic renal failure, unspe cified stage N18.9 [facility] [id number] [place] [address] Apr, Chronic renal failure, unspe cified stage N18.9 [place] [id number] [place] [address] Mar, [facility] [address] [address] Mar, Kidney dysfunction N28.9 ; T ype 2 diabetes mellitus with diabetic chronic kidney disease, unspecified CKD stage E11.22 ; Essential hypertension I10 ; Charcot ankle M14.679 and Chronic renal failure, unspecified stage N18.9 [place] [address] [place] [id number] [address] [place] [address] Dec, Kidney dysfunction N28.9 [place] [address] [place] [id number] [address] [place] [address] Nov, Type 2 diabetes mellitus wit hout complications E11.9 ; Essential hypertension I10 ; Charcot ankle M14.679 ; History of hypothyroidism Z86.39 and History of anemia Z86.2 [place] [address] [place] [address] Oct, Type 2 diabetes mellitus wit h diabetic chronic kidney disease, unspecified CKD stage E11.22 [place] [address] [place] [id number] [address] [place] [address] Oct, Onychocryptosis L60.0 ; Linda cot ankle M14.679 ; Pes planus M21.40 and Type 2 diabetes mellitus with diabetic chronic kidney disease, unspecified CKD stage E11.22 [place] [address] [address] [address] Sep, [place] [address] [address] Sep, [place] [address] [address] Aug, [place] [address] [address] Aug, Type 2 diabetes mellitus wit h diabetic chronic kidney disease, unspecified CKD stage E11.22 ; Essential hypertension I10 ; Charcot ankle M14.679 ; History of hypothyroidism Z86.39 and History of anemia Z86.[address] [address] May, Acute kidney injury N17.9 ; Essential hypertension I10 and Type 2 diabetes mellitus with diabetic chronic kidney disease, unspecified CKD stage E11.[address] [address] Mar, Foot pain M79.673 ; Charcot ankle M14.679 and Pes planus M21.[address] [address] Feb, Left foot pain M79.672 ; Vera rcot ankle M14.679 and Type II or unspecified type diabetes mellitus with neurological manifestations, not stated as uncontrolled E11.[address] [address] Dec, Hypoglycemia, unspecified E1 6.[address] [address] 14 Dec, 2014 Left foot pain M79.[address] [address] 13 Dec, 2014 Pain in left foot M79.672 ; Other specified soft tissue disorders M79.89 and Type 2 diabetes mellitus with diabetic neuropathy E11.40 [place] [id number] [address] [place] [address], [place] [address] 14 Jun, 2014 [facility] [address] [id number] [address] [place] [address], [place] [address] 13 Jun, 2014 [facility] [address] [id number] [address] [place] [address], [place] [address] 16 May, 2014 [facility] [address] [id number] [address] [place] [address], [place] [address] 16 May, 2014 [facility] [address] [id number] [address] [place] [address], [place] [address] 18 Apr, 2014 [facility] [address] [id number] [address] [place] [address], [place] [address] Apr, [facility] [address] [id number] [address] [place] [address], [place] [address] Apr, [facility] [address] [id number] [address] [place] [address], [place] [address] Apr, [facility] [address] [id number] [address] [place] [address], [place] [address] Mar, [facility] [address] [id number] [address] [place] [address], [place] [address] Mar, [facility] [address] [id number] [address] [place] [address], [place] [address] Feb, [facility] [address] [id number] [address] [place] [address], [place] [address] Feb, [facility] [address] [id number] [address] [place] [address], [place] [address] Feb, [facility] [address] [id number] [address] [place] [address], [place] [address] Feb, [facility] [address] [id number] [address] [place] [address], [place] [address] Oct, [facility] [address] [id number] [address] [place] [address], [place] [address] Oct, [facility] [address] [id number] [address] [place] [address], [place] [address] Oct, [facility] [address] [id number] [address] [place] [address], [place] [address] Oct, [facility] [address] [id number] [address] [place] [address], [place] [address] Oct, [facility] [address] [id number] [address] [place] [address], [place] [address] Oct, [facility] [address] [id number] [address] [place] [address], [place] [address] Oct, [facility] [address] [id number] [address] [place] [address], [place] [address] Oct, [facility] [address] [id number] [address] [place] [address], [place] [address] Aug, [facility] [address] [id number] [address] [place] [address], [place] [address] Aug, [facility] [address] [id number] [address] [place] [address], [place] [address] Apr, [facility] [address] [id number] [address] [place] [address], [place] [address] Apr, [facility] [address] [id number] [address] [place] [address], [place] [address] Apr, [facility] [address] [id number] [address] [place] [address], [place] [address] Apr, [facility] [address] [id number] [address] [place] [address], [place] [address] Apr, [facility] [address] [id number] [address] [place] [address], [place] [address] Apr, [facility] [address] [id number] [address] [place] [address], [place] [address] Apr, [facility] [address] [id number] [address] [place] [address], [place] [address] Apr, [facility] [address] [id number] [address] [place] [address], [place] [address] Mar, [facility] [address] [id number] [address] [place] [address], [place] [address] Mar, [facility] [address] [id number] [address] [place] [address], [place] [address] Mar, [facility] [address] [id number] [address] [place] [address], [place] [address] Mar, [facility] [address] [id number] [address] [place] [address], [place] [address] Mar, [facility] [address] [id number] [address] [place] [address], [place] [address] Mar, [facility] [address] [id number] [address] [place] [address], [place] [address] Mar, [facility] [address] [id number] [address] [place] [address], [place] [address] Mar, [facility] [address] [id number] [address] [place] [address], [place] [address] Mar, [facility] [address] [id number] [address] [place] [address], [place] [address] Mar, [facility] [address] [id number] [address] [place] [address], [place] [address] Mar, [facility] [address] [id number] [address] [place] [address], [place] [address] Mar, [facility] [address] [id number] [address] [place] [address], [place] [address] Feb, [facility] [address] [id number] [address] [place] [address], [place] [address] Feb, [facility] [address] [id number] [address] [place] [address], [place] [address] Feb, [facility] [address] [facility] [id number] [address] [place] [address] Feb, IMMUNIZATIONS No Known Immunizations SOCIAL HISTORY Never Assessed REASON FOR VISIT refill PLAN OF CARE VITAL SIGNS MEDICATIONS Medication Instructions Dosage Frequency Start Date End Date Duration S tat Levemir FlexTouch 100 UNIT/ML Subcutaneous once a day at HS 10 units Active RESULTS No Results PROCEDURES No Known [...]
--- OUTSIDE RECORDS SUMMARY | 2019-05-23 11:36 | XMS REPORT ---
Author Author Antoine POLLARD [facility] Address [address] [place] [address] Care Team Providers Care Print Binding Worker Name Role Phone TERRY POLLARD Unavailable PROBLEMS Type Condition ICD9-CM Code CIF90-VL Code Onset Dates Condition S tatus SNOMED Code Problem Type 2 diabetes mellitus wit h diabetic chronic kidney disease, unspecified CKD stage E11.22 Active 520002 003 Problem History of hypothyroidism Z86.39 Acti ve 913301383 Problem Essential hypertension I10 Active 11474120 Problem Mixed hyperlipidemia E78.2 Active 488417534 Problem End stage renal disease N18.6 Active 440814418 Problem Chronic renal failure, unspecified stage N18.9 Active 97460409 Problem Type 2 diabetes mellitus without complications E11 .9 Active 295626188 Problem 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.2 A ctive 835439535 Problem Difficulty walking R26.2 Active 7 39755125 Problem Charcot foot due to diabetes mellitus E11.610 Active 53038310 Problem Xthxhfi-Egiws-Abzib disease-like deformity of foot 356.1 Active 067606976 Problem Type II or unspecified type diabetes mellitus with neurological manifestations, not stated as uncontrolled E11.49 Active 00061793 Problem Retinopathy due to secondary diabetes mellitus, with macular edema, 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 Active 0420179 Problem Charcot ankle M14.679 Active 002354 008 ALLERGIES No Information ENCOUNTERS Encounter Location Date Diagnosis [facility] [address] [facility] [id number] [address] [place] [address] July, Mixed hyperlipidemia E78.2 [facility] [address] [facility] [id number] [address] [place] [address] July, Type II or unspecified type diabetes mellitus with neurological manifestations, not stated as uncontrolled E11.49 ; Hyperglycemia R73.9 ; 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.2 and End stage renal disease N18.6 [facility] [address] [facility] [id number] [address] [place] [address] Jun, [facility] [address] [facility] [id number] [address] [place] [address] Apr, Type 2 diabetes mellitus wit h diabetic chronic kidney disease, unspecified CKD stage E11.22 and Seizures R56.9 [facility] [address] [facility] [id number] [address] [place] [address] Apr, Difficulty walking R26.2 [facility] [address] [facility] [id number] [address] [place] [address] Mar, Hyperglycemia R73.9 and [place] roenteritis K52.9 [place] [address] [facility] [id number] [address] [place] [address] July, Chronic renal failure, unspe cified stage N18.9 [facility] [address] [place] [id number] [address] [place] [phone] Jun, [facility] [address] [place] [id number] [address] [place] [address] Jun, Chronic renal failure, unspe cified stage N18.9 [place] [address] [place] [id number] [address] [place] [address] Jun, Chronic renal failure, unspe cified stage N18.9 and Leg pain, diffuse, unspecified laterality M79.606 [facility] [address] [place] [id number] [address] [place] [address] May, [facility] [address] [place] [id number] [address] [place] [phone] May, [facility] [address] [facility] [id number] [address] [place] [address] May, [facility] [address] [place] [id number] [address] [place] [address] May, Chronic renal failure, unspe cified stage N18.9 [place] [address] [address] Apr, Chronic renal failure, unspe cified stage N18.9 [place] [address] [place] [id number] [address] [place] [address] Mar, [place] [address] [address] Mar, Kidney dysfunction N28.9 ; T ype 2 diabetes mellitus with diabetic chronic kidney disease, unspecified CKD stage E11.22 ; Essential hypertension I10 ; Charcot ankle M14.679 and Chronic renal failure, unspecified stage N18.9 [place] [address] [address] Dec, Kidney dysfunction N28.9 [place] [address] [address] Nov, Type 2 diabetes mellitus wit hout complications E11.9 ; Essential hypertension I10 ; Charcot ankle M14.679 ; History of hypothyroidism Z86.39 and History of anemia Z86.2 [place] [address] [address] Oct, Type 2 diabetes mellitus wit h diabetic chronic kidney disease, unspecified CKD stage E11.22 [place] [address] [address] Oct, Onychocryptosis L60.0 ; Linda cot ankle M14.679 ; Pes planus M21.40 and Type 2 diabetes mellitus with diabetic chronic kidney disease, unspecified CKD stage E11.22 [place] [address] [address] Sep, [place] [address] [address] Sep, [place] [address] [address] Aug, [place] [id number] [place] [address] 09 Aug, 2015 Type 2 diabetes mellitus wit h diabetic chronic kidney disease, unspecified CKD stage E11.22 ; Essential hypertension I10 ; Charcot ankle M14.679 ; History of hypothyroidism Z86.39 and History of anemia Z86.2 [place] [address] [address] 05 May, 2015 Acute kidney injury N17.9 ; Essential hypertension I10 and Type 2 diabetes mellitus with diabetic chronic kidney disease, unspecified CKD stage E11.22 [place] [address] [address] Mar, Foot pain M79.673 ; Charcot ankle M14.679 and Pes planus M21.40 [place] [address] [address] Feb, Left foot pain M79.672 ; Vera rcot ankle M14.679 and Type II or unspecified type diabetes mellitus with neurological manifestations, not stated as uncontrolled E11.49 [place] [address] [address] Dec, Hypoglycemia, unspecified E1 6.2 [place] [address] [address] 14 Dec, 2014 Left foot pain M79.672 [place] [address] [address] Dec, Pain in left foot M79.672 ; Other specified soft tissue disorders M79.89 and Type 2 diabetes mellitus with diabetic neuropathy E11.40 [place] [address] [address] Jun, [place] [address] [address] Jun, [place] [address] [id number] 16 May, 2014 [facility] [address] [id number] [address] [place] [address], [place] [address] 16 May, 2014 [facility] [address] [id number] [address] [place] [address], [place] [address] Apr, [facility] [address] [id number] [address] [place] [address], [place] [address] Apr, [facility] [address] [id number] [address] [place] [address], [place] [address] Apr, [facility] [address] [id number] [address] [place] [address], [place] [address] Apr, [facility] [address] [id number] [address] [place] [address], [place] [address] Mar, [facility] [address] [id number] [address] [place] [address], [place] [address] Mar, [facility] [address] [id number] [address] [place] [address], [place] [address] Feb, [facility] [address] [id number] [address] [place] [address], [place] [address] Feb, [facility] [address] [id number] [address] [place] [address], [place] [address] Feb, [facility] [address] [id number] [address] [place] [address], [place] [address] Feb, [facility] [address] [id number] [address] [place] [address], [place] [address] Oct, [facility] [address] [id number] [address] [place] [address], [place] [address] Oct, [facility] [address] [id number] [address] [place] [address], [place] [address] Oct, [facility] [address] [id number] [address] [place] [address], [place] [address] Oct, [facility] [address] [id number] [address] [place] [address], [place] [address] Oct, [facility] [address] [id number] [address] [place] [address], [place] [address] Oct, [facility] [address] [id number] [address] [place] [address], [place] [address] Oct, [facility] [place] [facility] [address] [id number] [address] [place] [address], [place] [address] Oct, [facility] [address] [id number] [address] [place] [address], [place] [address] Aug, [facility] [address] [id number] [address] [place] [address], [place] [address] Aug, [facility] [address] [id number] [address] [place] [address], [place] [address] Apr, [facility] [address] [id number] [address] [place] [address], [place] [address] Apr, [facility] [address] [id number] [address] [place] [address], [place] [address] Apr, [facility] [address] [id number] [address] [place] [address], [place] [address] Apr, [facility] [address] [id number] [address] [place] [address], [place] [address] Apr, [facility] [place] [facility] [address] [id number] [address] [place] [address], [place] [address] Apr, [facility] [place] [facility] [address] [id number] [address] [place] [address], [place] [address] Apr, [facility] [place] [facility] [address] [id number] [address] [place] [address], [place] [address] Apr, [facility] [place] [facility] [address] [id number] [address] [place] [address], [place] [address] Mar, [facility] [place] [facility] [address] [id number] [address] [place] [address] Mar, [facility] [address] [id number] [address] [place] [address] Mar, [facility] [address] [id number] [address] [place] [address] Mar, [facility] [address] [id number] [address] [place] [address] Mar, [facility] [address] [id number] [address] [place] [address] Mar, [facility] [address] [id number] [address] [place] [address] Mar, [facility] [address] [id number] [address] [place] [address] Mar, [facility] [address] [id number] [address] [place] [address] Mar, [facility] [address] [id number] [address] [place] [address] Mar, [facility] [address] [id number] [address] [place] [address] Mar, [facility] [address] [id number] [address] [place] [address] Mar, [facility] [address] [id number] [address] [place] [address] Feb, [facility] [address] [id number] [address] [place] [address] Feb, [facility] [address] [id number] [address] [place] [address] Feb, [facility] [address] [id number] [address] [place] [address] Feb, IMMUNIZATIONS No Known Immunizations SOCIAL HISTORY Never Assessed REASON FOR VISIT Med list update PLAN OF CARE VITAL SIGNS MEDICATIONS Medication Instructions Dosage Frequency Start Date End Date Duration S prateek [place] Active Vitamin D 50,0000 Orally once weekly Unknown Glucometer subcutaneously 3 times a day test blood sugar 8h Apr, Active FreeStyle Lite Test N/A In Vitro 2 times a day test blood sugar 12h Active Dialysis Safety Syringe/Needle 22G X 1-1/2 Active NovoLog Flexpen 100 UNIT/ML Subcutaneous 3 times a day Injec t before meals per sliding scale 8h Unknown Vitamin C 500 mg Orally Once a day 1 tablet 24h Active Levemir FlexTouch 100 UNIT/ML Subcutaneous once a day at HS 10 units Active Tums 500 MG 2 tablets with meals and 1 tablet with snacks Unknown Levetiracetam 750 MG Orally daily at noon on / /WED/WED and the after Dialysis on // 1 tablet Active Norvasc 10 MG Orally Once a day 1 tablet 24h Active Test strips subcutaneously 3 times a day test blood sugar 8h Apr Active Metoprolol Succinate ER 100 MG Orally Once a day 1 tablet 24h Active Ferrous Sulfate 325 (65 Fe) MG Orally Once a day 1 tablet 24h Active RESULTS No Results PROCEDURES No Known [...]
--- OUTSIDE RECORDS SUMMARY | 2019-05-23 11:36 | XMS REPORT ---
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 Active 973643 003 Problem History of hypothyroidism Z86.39 Acti ve 554771716 Problem Essential hypertension I10 Active 39333396 Problem Mixed hyperlipidemia E78.2 Active 038739138 Problem End stage renal disease N18.6 Active 695533491 Problem Chronic renal failure, unspecified stage N18.9 Active 65562698 Problem Type 2 diabetes mellitus without complications E11 .9 Active 783097840 Problem 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.2 A ctive 714780113 Problem Difficulty walking R26.2 Active 7 00337314 Problem Charcot foot due to diabetes mellitus E11.610 Active 99142192 Problem Ppatxin-Wrzyv-Igjlz disease-like deformity of foot 356.1 Active 137963281 Problem Type II or unspecified type diabetes mellitus with neurological manifestations, not stated as uncontrolled E11.49 Active 55220578 Problem Retinopathy due to secondary diabetes mellitus, with macular edema, 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 Active 2991364 Problem Charcot ankle M14.679 Active 674060 008 ALLERGIES No Information ENCOUNTERS Encounter Location Date Diagnosis [facility] [address] [facility] [id number] [address] [place] [phone] July, Mixed hyperlipidemia E78.2 [facility] [address] [facility] [id number] [address] [place] [phone] July, Type II or unspecified type diabetes mellitus with neurological manifestations, not stated as uncontrolled E11.49 ; Hyperglycemia R73.9 ; 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.2 and End stage renal disease N18.6 [facility] [address] [facility] [id number] [address] [place] [phone] Jun, [facility] [address] [facility] [id number] [address] [place] [id number] Apr, Type 2 diabetes mellitus wit h diabetic chronic kidney disease, unspecified CKD stage E11.22 and Seizures R56.9 [facility] [address] [facility] [id number] [address] [place] [phone] Apr, Difficulty walking R26.2 [facility] [address] [facility] [id number] [address] [place] [phone] Mar, Hyperglycemia R73.9 and [place] roenteritis K52.9 [place] [address] [facility] [id number] [address] [place] [phone] July, Chronic renal failure, unspe cified stage N18.9 [facility] [address] [place] [id number] [address] [place] [phone] Jun, [facility] [address] [place] [id number] [address] [place] [phone] Jun, Chronic renal failure, unspe cified stage N18.9 [place] [address] [place] [id number] [address] [place] [phone] Jun, Chronic renal failure, unspe cified stage N18.9 and Leg pain, diffuse, unspecified laterality M79.606 [facility] [address] [place] [id number] [address] [place] [phone] May, [facility] [address] [place] [id number] [address] [place] [phone] May, [facility] [address] [facility] [id number] [address] [place] [phone] May, [facility] [address] [place] [id number] [address] [place] [phone] May, Chronic renal failure, unspe cified stage N18.9 [place] [address] [id number] Apr, Chronic renal failure, unspe cified stage N18.9 [place] [address] [place] [id number] [address] [place] [phone] Mar, [place] [address] [address] Mar, Kidney dysfunction N28.9 ; T ype 2 diabetes mellitus with diabetic chronic kidney disease, unspecified CKD stage E11.22 ; Essential hypertension I10 ; Charcot ankle M14.679 and Chronic renal failure, unspecified stage N18.9 [place] [address] [address] Dec, Kidney dysfunction N28.9 [place] [address] [address] Nov, Type 2 diabetes mellitus wit hout complications E11.9 ; Essential hypertension I10 ; Charcot ankle M14.679 ; History of hypothyroidism Z86.39 and History of anemia Z86.2 [place] [address] [id number] Oct, Type 2 diabetes mellitus wit h diabetic chronic kidney disease, unspecified CKD stage E11.22 [place] [address] [address] Oct, Onychocryptosis L60.0 ; Linda cot ankle M14.679 ; Pes planus M21.40 and Type 2 diabetes mellitus with diabetic chronic kidney disease, unspecified CKD stage E11.22 [place] [address] [address] Sep, [place] [address] [address] Sep, [place] [address] [address] Aug, [place] [id number] [place] [phone] 09 Aug, 2015 Type 2 diabetes mellitus wit h diabetic chronic kidney disease, unspecified CKD stage E11.22 ; Essential hypertension I10 ; Charcot ankle M14.679 ; History of hypothyroidism Z86.39 and History of anemia Z86.2 [place] [address] [id number] 05 May, 2015 Acute kidney injury N17.9 ; Essential hypertension I10 and Type 2 diabetes mellitus with diabetic chronic kidney disease, unspecified CKD stage E11.22 [place] [address] [address] Mar, Foot pain M79.673 ; Charcot ankle M14.679 and Pes planus M21.40 [place] [address] [address] Feb, Left foot pain M79.672 ; Vera rcot ankle M14.679 and Type II or unspecified type diabetes mellitus with neurological manifestations, not stated as uncontrolled E11.49 [place] [address] [address] Dec, Hypoglycemia, unspecified E1 6.2 [place] [address] [address] 14 Dec, 2014 Left foot pain M79.672 [place] [address] [address] Dec, Pain in left foot M79.672 ; Other specified soft tissue disorders M79.89 and Type 2 diabetes mellitus with diabetic neuropathy E11.40 [place] [address] [address] Jun, [place] [address] [address] Jun, [place] [address] [id number] 16 May, 2014 [facility] [address] [id number] [address] [place] [address], [place] [id number] 16 May, 2014 [facility] [address] [id number] [address] [place] [address], [place] [id number] Apr, [facility] [address] [id number] [address] [place] [address], [place] [id number] Apr, [facility] [address] [id number] [address] [place] [address], [place] [id number] Apr, [facility] [address] [id number] [address] [place] [address], [place] [id number] Apr, [facility] [address] [id number] [address] [place] [address], [place] [id number] Mar, [facility] [address] [id number] [address] [place] [address], [place] [id number] Mar, [facility] [address] [id number] [address] [place] [address], [place] [id number] Feb, [facility] [address] [id number] [address] [place] [address], [place] [id number] Feb, [facility] [address] [id number] [address] [place] [address], [place] [id number] Feb, [facility] [address] [id number] [address] [place] [address], [place] [id number] Feb, [facility] [address] [id number] [address] [place] [address], [place] [id number] Oct, [facility] [address] [id number] [address] [place] [address], [place] [id number] Oct, [facility] [address] [id number] [address] [place] [address], [place] [id number] Oct, [facility] [address] [id number] [address] [place] [address], [place] [id number] Oct, [facility] [address] [id number] [address] [place] [address], [place] [id number] Oct, [facility] [address] [id number] [address] [place] [address], [place] [id number] Oct, [facility] [address] [id number] [address] [place] [address], [place] [id number] Oct, [facility] [address] [id number] [address] [place] [address], [place] [id number] Oct, [facility] [address] [id number] [address] [place] [address], [place] [id number] Aug, [facility] [address] [id number] [address] [place] [address], [place] [id number] Aug, [facility] [address] [id number] [address] [place] [address], [place] [id number] Apr, [facility] [address] [id number] [address] [place] [address], [place] [id number] Apr, [facility] [address] [id number] [address] [place] [address], [place] [id number] Apr, [facility] [address] [id number] [address] [place] [address], [place] [id number] Apr, [facility] [address] [id number] [address] [place] [address], [place] [id number] Apr, [facility] [address] [id number] [address] [place] [address], [place] [id number] Apr, [facility] [address] [id number] [address] [place] [address], [place] [id number] Apr, [facility] [address] [id number] [address] [place] [address], [place] [id number] Apr, [facility] [address] [id number] [address] [place] [address], [place] [id number] Mar, [facility] [address] [id number] [address] [place] [phone] Mar, [facility] [address] [id number] [address] [place] [id number] Mar, [facility] [address] [id number] [address] [place] [phone] Mar, [facility] [address] [id number] [address] [place] [phone] Mar, [facility] [address] [id number] [address] [place] [phone] Mar, [facility] [address] [id number] [address] [place] [phone] Mar, [facility] [address] [id number] [address] [place] [phone] Mar, [facility] [address] [id number] [address] [place] [phone] Mar, [facility] [address] [id number] [address] [place] [id number] Mar, [facility] [address] [id number] [address] [place] [phone] Mar, [facility] [address] [id number] [address] [place] [id number] Mar, [facility] [address] [id number] [address] [place] [phone] Feb, [facility] [address] [id number] [address] [place] [phone] Feb, [facility] [address] [id number] [address] [place] [phone] Feb, [facility] [address] [id number] [address] [place] [phone] Feb, IMMUNIZATIONS No Known Immunizations SOCIAL HISTORY Never Assessed REASON FOR VISIT Orders from Results PLAN OF CARE VITAL SIGNS MEDICATIONS Medication Instructions Dosage Frequency Start Date End Date Duration S tatus Lipitor 40 MG Orally Once a day 1 tablet 24h July, 30 days Active RESULTS No Results PROCEDURES No Known [...]
--- OUTSIDE RECORDS SUMMARY | 2019-05-23 11:37 | XMS REPORT ---
Author Author Antoine GARCIA [facility] Address [address] [place] [address] Care Team Providers Care Mate First Name Role Phone HA GARCIA Unavailable PROBLEMS Type Condition ICD9-CM Code UPL02-CQ Code Onset Dates Condition S tatus SNOMED Code Problem Type 2 diabetes mellitus wit h diabetic chronic kidney disease, unspecified CKD stage E11.22 Active 479908 003 Problem History of hypothyroidism Z86.39 Acti ve 424582489 Problem Essential hypertension I10 Active 66389704 Problem Mixed hyperlipidemia E78.2 Active 126539164 Problem End stage renal disease N18.6 Active 945870968 Problem Chronic renal failure, unspecified stage N18.9 Active 18549047 Problem Type 2 diabetes mellitus without complications E11 .9 Active 272759737 Problem 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.2 A ctive 232165629 Problem Difficulty walking R26.2 Active 7 17376787 Problem Charcot foot due to diabetes mellitus E11.610 Active 47240343 Problem 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 Active 701156878 Problem Type II or unspecified type diabetes mellitus with neurological manifestations, not stated as uncontrolled E11.49 Active 19632930 Problem Retinopathy due to secondary diabetes mellitus, with macular edema, 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 Active 0451618 Problem Charcot ankle M14.679 Active 150477 008 ALLERGIES No Known Allergies ENCOUNTERS Encounter Location Date Diagnosis [facility] [address] [facility] [id number] [address] [place] [phone] July, Mixed hyperlipidemia E78.2 [facility] [address] [facility] [id number] [address] [place] [phone] July, Type II or unspecified type diabetes mellitus with neurological manifestations, not stated as uncontrolled E11.49 ; Hyperglycemia R73.9 ; 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.2 and End stage renal disease N18.6 [facility] [address] [facility] [id number] [address] [place] [phone] Jun, [facility] [address] [facility] [id number] [address] [place] [address] Apr, Type 2 diabetes mellitus wit h diabetic chronic kidney disease, unspecified CKD stage E11.22 and Seizures R56.9 [facility] [address] [facility] [id number] [address] [place] [id number] Apr, Difficulty walking R26.2 [facility] [address] [facility] [id number] [address] [place] [address] Mar, Hyperglycemia R73.9 and Zion roenteritis K52.9 [place] [address] [facility] [id number] [address] [place] [phone] July, Chronic renal failure, unspe cified stage N18.9 [facility] [address] [place] [id number] [address] [place] [phone] Jun, [facility] [address] [facility] [id number] [address] [place] [phone] Jun, Chronic renal failure, unspe cified stage N18.9 [place] [address] [place] [id number] [address] [place] [address] Jun, Chronic renal failure, unspe cified stage N18.9 and Leg pain, diffuse, unspecified laterality M79.606 [facility] [address] [facility] [id number] [address] [place] [address] May, [place] [address] [facility] [id number] [address] [place] [phone] May, [facility] [address] [facility] [id number] [address] [place] [phone] May, [place] [address] [place] [id number] [address] [place] [phone] May, Chronic renal failure, unspe cified stage N18.9 [place] [address] [place] [id number] [address] [place] [phone] Apr, Chronic renal failure, unspe cified stage N18.9 [place] [address] [place] [id number] [address] [place] [phone] Mar, [place] [address] [address] Mar, Kidney dysfunction N28.9 ; T ype 2 diabetes mellitus with diabetic chronic kidney disease, unspecified CKD stage E11.22 ; Essential hypertension I10 ; Charcot ankle M14.679 and Chronic renal failure, unspecified stage N18.9 [place] [address] [address] Dec, Kidney dysfunction N28.9 [place] [address] [address] Nov, Type 2 diabetes mellitus wit hout complications E11.9 ; Essential hypertension I10 ; Charcot ankle M14.679 ; History of hypothyroidism Z86.39 and History of anemia Z86.2 [place] [address] [place] [id number] [address] [place] [phone] Oct, Type 2 diabetes mellitus wit h diabetic chronic kidney disease, unspecified CKD stage E11.22 [place] [address] [place] [id number] [address] [place] [address] Oct, Onychocryptosis L60.0 ; Linda cot ankle M14.679 ; Pes planus M21.40 and Type 2 diabetes mellitus with diabetic chronic kidney disease, unspecified CKD stage E11.22 [place] [address] [address] Sep, [place] [address] [address] Sep, [place] [address] [address] 14 Aug, 2015 [facility] [address] [place] [id number] [address] [place] [phone] 09 Aug, 2015 Type 2 diabetes mellitus wit h diabetic chronic kidney disease, unspecified CKD stage E11.22 ; Essential hypertension I10 ; Charcot ankle M14.679 ; History of hypothyroidism Z86.39 and History of anemia Z86.2 [place] [address] [place] [id number] [address] [place] [id number] 05 May, 2015 Acute kidney injury N17.9 ; Essential hypertension I10 and Type 2 diabetes mellitus with diabetic chronic kidney disease, unspecified CKD stage E11.22 [place] [address] [address] Mar, Foot pain M79.673 ; Charcot ankle M14.679 and Pes planus M21.40 [place] [address] [address] Feb, Left foot pain M79.672 ; Vera rcot ankle M14.679 and Type II or unspecified type diabetes mellitus with neurological manifestations, not stated as uncontrolled E11.49 [place] [address] [address] 15 Dec, 2014 Hypoglycemia, unspecified E1 6.2 [place] [address] [place] [id number] [place] [phone] 14 Dec, 2014 Left foot pain M79.672 [place] [address] [place] [id number] [address] [place] [id number] Dec, Pain in left foot M79.672 ; Other specified soft tissue disorders M79.89 and Type 2 diabetes mellitus with diabetic neuropathy E11.40 [place] [address] [place] [id number] [address] [place] [phone] Jun, [place] [address] [place] [id number] [address] [place] [address] Jun, [place] [address] [place] [address] 16 May, 2014 [facility] [address] [id number] [address] [place] [address], [place] [address] 16 May, 2014 [facility] [address] [id number] [address] [place] [address], [place] [address] 18 Apr, 2014 [facility] [address] [id number] [address] [place] [address], [place] [address] Apr, 2014 [facility] [address] [id number] [address] [place] [address], [place] [address] Apr, [facility] [address] [id number] [address] [place] [address], [place] [address] Apr, [facility] [address] [id number] [address] [place] [address], [place] [address] Mar, [facility] [address] [id number] [address] [place] [address], [place] [address] Mar, [facility] [address] [id number] [address] [place] [address], [place] [address] Feb, [facility] [address] [id number] [address] [place] [address], [place] [address] Feb, [facility] [address] [id number] [address] [place] [address], [place] [address] Feb, [facility] [address] [id number] [address] [place] [address], [place] [address] Feb, [facility] [address] [id number] [address] [place] [address], [place] [address] Oct, [facility] [address] [id number] [address] [place] [address], [place] [address] Oct, [facility] [address] [id number] [address] [place] [address], [place] [address] Oct, [facility] [address] [id number] [address] [place] [address], [place] [address] Oct, [facility] [address] [id number] [address] [place] [address], [place] [address] Oct, [facility] [address] [id number] [address] [place] [address], [place] [address] Oct, [facility] [address] [id number] [address] [place] [address], [place] [address] Oct, [facility] [address] [id number] [address] [place] [address], [place] [address] Oct, [facility] [address] [id number] [address] [place] [address], [place] [address] Aug, [facility] [address] [id number] [address] [place] [address], [place] [address] Aug, [facility] [address] [id number] [address] [place] [address], [place] [address] Apr, [facility] [address] [id number] [address] [place] [address], [place] [address] Apr, [facility] [address] [id number] [address] [place] [address], [place] [address] Apr, [facility] [address] [id number] [address] [place] [address], [place] [address] Apr, [facility] [address] [id number] [address] [place] [address], [place] [address] Apr, [facility] [address] [id number] [address] [place] [address], [place] [address] Apr, [facility] [address] [id number] [address] [place] [address], [place] [address] Apr, [facility] [address] [id number] [address] [place] [address], [place] [address] Apr, [facility] [address] [id number] [address] [place] [address], [place] [address] Mar, [facility] [address] [id number] [address] [place] [address] Mar, [facility] [address] [id number] [address] [place] [phone] Mar, [facility] [address] [id number] [address] [place] [phone] Mar, [facility] [address] [id number] [address] [place] [phone] Mar, [facility] [address] [id number] [address] [place] [address], [place] [address] Mar, [facility] [address] [id number] [address] [place] [phone] Mar, [facility] [address] [id number] [address] [place] [phone] Mar, [facility] [address] [id number] [address] [place] [id number] Mar, [facility] [address] [id number] [address] [place] [phone] Mar, [facility] [address] [id number] [address] [place] [phone] Mar, [facility] [address] [id number] [address] [place] [phone] Mar, [facility] [address] [id number] [address] [place] [phone] Feb, [facility] [address] [id number] [address] [place] [phone] Feb, [facility] [address] [id number] [address] [place] [phone] Feb, [facility] [address] [id number] [address] [place] [phone] Feb, IMMUNIZATIONS No Known Immunizations SOCIAL HISTORY Never Assessed REASON FOR VISIT V/D couple hours ago started having righ thand and foot numbness [facility] Activity Details Follow Up prn Reason: VITAL SIGNS Height 64 in 2017-03-28 Weight 166.4 lbs 2017-03-28 Temperature 97.4 degrees Fahrenheit 2017-03-28 Heart Rate 100 bpm 2017-03-28 Respiratory Rate 22 2017-03-28 BMI 28.56 kg/m2 2017-03-28 Blood pressure systolic 210 mmHg 2017-03-28 Blood pressure diastolic 112 mmHg 2017-03-28 MEDICATIONS Medication Instructions Dosage Frequency Start Date End Date Duration S tatus Norvasc 10 mg Orally Once a day 1 tablet 24h 12 Mar, 2016 30 day(s) Active FreeStyle Lite - Active FreeStyle Lite Test N/A In Vitro 2 times a day test blood sugar 12h Active Metoprolol Succinate ER 100 MG Orally Once a day 1 tablet 24h Active Lovastatin 40 mg TAKE ONE TABLET BY MOUTH ONCE DAILY Active Dialysis Safety Syringe/Needle 22G X 1-1/2 Active Lasix 80 MG Orally Once a day 1 tablet 24h 14 days A ctive Levemir FlexTouch 100 UNIT/ML Subcutaneous once a day at HS 10 units Active Sodium Bicarbonate 325 MG Orally 2 times a day 1 tablet 12h Active Tums 500 MG 2 tablets with meals and 1 tablet with snacks Active RESULTS Name Result Date Reference Range GLUCOSE FINGERSTICK (IN HOUSE) 2017-03-28 GLU FINGERSTICK [facility] >8hr Lot # [id number] Exp date 2017-09-18 PROCEDURES Procedure Date Ordered Result Body Site GLUCOSE BLOOD TEST Mar 28, 2017 INSTRUCTIONS MEDICATIONS ADMINISTERED No Known Medications MEDICAL (GENERAL) HISTORY Type Description Date Medical History diabetes Type II Medical History hypertension Medical History Charcot foot due to diabetes mellitus Medical History kidney failure with dialysis Medical History anemia secondary to renal failure Surgical History Dialysis shunt Hospitalization History ER for low blood sugar 05/28
--- OUTSIDE RECORDS SUMMARY | 2019-05-23 11:38 | XMS REPORT | Continuity of Care Document ---
Author Organization Unknown Address Unknown Phone Unavailable Allergies Active Description Code Type Severity Reaction Onset Reported/Identified Relationship to Patient Clinical Status Yes No Known Drug Allergies [id number] Drug Allergy Unknown N/A 05/17/2019 Medications There is no data. Problems Date Dx Coded Attending Type Code Diagnosis Diagnosed By 02/12/1432 RADHA MAKI, ROULA Polanco Ot R26 .2 DIFFICULTY IN WALKING, NOT ELSEWHERE CLA 02/28/2013 LATRICE TIRE RECAPPER, TERRY S 250.02 DIABETES II UNCONTROLLED (UNCOMPLICATED) 02/28/2013 LATRICE TIRE RECAPPER, TERRY S 401.1 HYPERTENSION, BENIGN ESSENTIAL 02/28/2013 LATRICE TIRE RECAPPER, TERRY S V70.0 EXAM - ROUTINE H&P 02/28/2013 LATRICE TIRE RECAPPER, TERRY S 250.02 DIABETES II UNCONTROLLED (UNCOMPLICATED) 02/28/2013 LATRICE TIRE RECAPPER, TERRY S 401.1 HYPERTENSION, BENIGN ESSENTIAL 02/28/2013 LATRICE TIRE RECAPPER, TERRY S V70.0 EXAM - ROUTINE H&P 02/28/2013 LATRICE TIRE RECAPPER, TERRY S 250.02 DIABETES II UNCONTROLLED (UNCOMPLICATED) 02/28/2013 LATRICE TIRE RECAPPER, TERRY S 401.1 HYPERTENSION, BENIGN ESSENTIAL 02/28/2013 LATRICE TIRE RECAPPER, TERRY S V70.0 EXAM - ROUTINE H&P 02/28/2013 LATRICE TIRE RECAPPER, TERRY S 250.02 DIABETES II UNCONTROLLED (UNCOMPLICATED) 02/28/2013 LATRICE TIRE RECAPPER, TERRY S 401.1 HYPERTENSION, BENIGN ESSENTIAL 02/28/2013 LATRICE TIRE RECAPPER, TERRY S V70.0 EXAM - ROUTINE H&P 02/28/2013 LATRICE TIRE RECAPPER, TERRY S 250.02 DIABETES II UNCONTROLLED (UNCOMPLICATED) 02/28/2013 LATRICE TIRE RECAPPER, TERRY S 401.1 HYPERTENSION, BENIGN ESSENTIAL 02/28/2013 LATRICE TIRE RECAPPER, TERRY S V70.0 EXAM - ROUTINE H&P 02/28/2013 LATRICE TIRE RECAPPER, TERRY S 250.02 DIABETES II UNCONTROLLED (UNCOMPLICATED) 02/28/2013 LATRICE TIRE RECAPPER, TERRY S 401.1 HYPERTENSION, BENIGN ESSENTIAL 02/28/2013 LATRICE TIRE RECAPPER, TERRY S V70.0 EXAM - ROUTINE H&P 04/06/2013 LATRICE TIRE RECAPPER, TERRY S 285.9 ANEMIA 04/06/2013 LATRICE TIRE RECAPPER, TERRY S 285.9 ANEMIA 04/06/2013 LATRICE TIRE RECAPPER, TERRY S 285.9 ANEMIA 04/06/2013 LATRICE TIRE RECAPPER, TERRY S 285.9 ANEMIA 04/06/2013 LATRICE TIRE RECAPPER, TERRY S 285.9 ANEMIA 04/12/2013 LATRICE TIRE RECAPPER, TERRY S 244.9 HYPOTHYROIDISM 04/12/2013 LATRICE TIRE RECAPPER, TERRY S 250.00 DIABETES MELLITUS TYPE 2 04/12/2013 LATRICE TIRE RECAPPER, TERRY S 244.9 HYPOTHYROIDISM 04/12/2013 LATRICE TIRE RECAPPER, TERRY S 250.00 DIABETES MELLITUS TYPE 2 04/12/2013 LATRICE TIRE RECAPPER, TERRY S 244.9 HYPOTHYROIDISM 04/12/2013 LATRICE TIRE RECAPPER, TERRY S 250.00 DIABETES MELLITUS TYPE 2 04/12/2013 LATRICE TIRE RECAPPER, TERRY S 244.9 HYPOTHYROIDISM 04/12/2013 LATRICE TIRE RECAPPER, TERRY S 250.00 DIABETES MELLITUS TYPE 2 04/12/2013 LATRICE TIRE RECAPPER, TERRY S 244.9 HYPOTHYROIDISM 04/12/2013 LATRICE TIRE RECAPPER, TERRY S 250.00 DIABETES MELLITUS TYPE 2 04/17/2013 LATRICE TIRE RECAPPER, TERRY S 242.90 HYPERTHYROIDISM 04/17/2013 LATRICE TIRE RECAPPER, TERRY S 242.90 HYPERTHYROIDISM 04/17/2013 LATRICE TIRE RECAPPER, TERRY S 242.90 HYPERTHYROIDISM 04/17/2013 LATRICE TIRE RECAPPER, TERRY S 242.90 HYPERTHYROIDISM 03/05/2014 LATRICE TIRE RECAPPER, TERRY S 782.3 EDEMA 03/05/2014 LATRICE TIRE RECAPPER, TERRY S 786.2 COUGH 03/05/2014 TERRY POLLARD APRN S 782.3 EDEMA 03/05/2014 TERRY POLLARD APRN S 786.2 COUGH 03/27/2014 TERRY POLLARD APRN S 459.81 VENOUS (PERIPHERAL) INSUFFICIENCY UNSPECIFIED 04/30/2014 TERRY POLLARD FIELD CREW CHIEF Ot 729.81 06/04/2014 TERRY POLLARD FIELD CREW CHIEF Ot 729.81 12/28/2014 TERRY POLLARD FIELD CREW CHIEF Ot 729.81 05/18/2015 JUNI MAKI, SHARMIN T Ot E11.649 TYPE 2 DIABETES MELLITUS WITH HYPOGLYCEM 05/18/2015 JUNI MAKI, SHARMIN T Ot E87.6 HYPOKALEMIA 05/18/2015 JUNI MAKI, SHARMIN T Ot I10 ESSENTIAL (PRIMARY) HYPERTENSION 05/18/2015 JUNI MAKI, SHARMIN T Ot N17.9 ACUTE KIDNEY FAILURE, UNSPECIFIED 05/18/2015 JUNI MAKI, SHARMIN T Ot N39.0 URINARY TRACT INFECTION, SITE NOT SPECIF 05/18/2015 TERRY POLLARD FIELD CREW CHIEF Ot 729.81 05/31/2015 JUNI MAKI, SHARMIN T Ot E11.649 05/31/2015 UJNI MAKI, SHARMIN T Ot E87.6 05/31/2015 JUNI MAKI, SHARMIN T Ot I10 05/31/2015 JUNI MAKI, SHARMIN T Ot N17.9 05/31/2015 JUNI MAKI, SHARMIN T Ot N39.0 05/28/2016 VIKY MELÉNDEZ ACID CONDENSER-C Ot D64.9 ANEMIA, UNSPECIFIED 05/28/2016 VIKY MELÉNDEZ ACID CONDENSER-C Ot 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 ACID CONDENSER-C Ot N18.4 CHRONIC KIDNEY DISEASE, STAGE 4 (SEVERE) 05/28/2016 NEW, VIKY G. ACID CONDENSER-C Ot N32.9 BLADDER DISORDER, UNSPECIFIED 05/28/2016 NEW, VIKY G. ACID CONDENSER-C Ot D64.9 ANEMIA, UNSPECIFIED 05/28/2016 NEW, VIKY G. 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 ACID CONDENSER-C Ot E87.5 HYPERKALEMIA 05/28/2016 NEW, VIKY G. ACID CONDENSER-C Ot E88.0 9 OTH DISORDERS OF PLASMA-PROTEIN METABOLI 05/28/2016 NEW, VIKY G. ACID CONDENSER-C Ot I12.9 HYPERTENSIVE CHRONIC KIDNEY DISEASE W ST 05/28/2016 NEW, VIKY G. ACID CONDENSER-C Ot N18.4 CHRONIC KIDNEY DISEASE, STAGE 4 (SEVERE) 05/28/2016 NEW, VIKY G. ACID CONDENSER-C Ot N32.9 BLADDER DISORDER, UNSPECIFIED 06/02/2016 NEW, VIKY G. ACID CONDENSER-C Ot D64.9 ANEMIA, UNSPECIFIED 06/02/2016 NEW, VIKY G. 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 ACID CONDENSER-C Ot E87.5 HYPERKALEMIA 06/02/2016 NEW, VIKY G. ACID CONDENSER-C Ot E88.0 9 OTH DISORDERS OF PLASMA-PROTEIN METABOLI 06/02/2016 NEW, VIKY G. ACID CONDENSER-C Ot I12.9 HYPERTENSIVE CHRONIC KIDNEY DISEASE W ST 06/02/2016 NEW, VIKY G. ACID CONDENSER-C Ot N18.4 CHRONIC KIDNEY DISEASE, STAGE 4 (SEVERE) 06/02/2016 NEW, VIKY G. ACID CONDENSER-C Ot N32.9 BLADDER DISORDER, UNSPECIFIED 06/08/2016 NEW, VIKY G. ACID CONDENSER-C Ot D64.9 ANEMIA, UNSPECIFIED 06/08/2016 NEW, VIKY G. 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 ACID CONDENSER-C Ot E87.5 HYPERKALEMIA 06/08/2016 NEW, VIKY G. ACID CONDENSER-C Ot E88.0 9 OTH DISORDERS OF PLASMA-PROTEIN METABOLI 06/08/2016 NEW, VIKY G. ACID CONDENSER-C Ot I12.9 HYPERTENSIVE CHRONIC KIDNEY DISEASE W ST 06/08/2016 VIKY MELÉNDEZ ACID CONDENSER-C Ot N18.4 CHRONIC KIDNEY DISEASE, STAGE 4 (SEVERE) 06/08/2016 VIKY MELÉNDEZ ACID CONDENSER-C Ot N32.9 BLADDER DISORDER, UNSPECIFIED 06/28/2016 WIN [...] 06/28/2016 WIN DO, VIKY K Ot Z79.4 TANK FARM OPERATOR (CURRENT) USE OF INSULIN 06/28/2016 WIN DO, VIKY K Ot Z79.84 ASSISTED (CURRENT) USE OF ORAL HYPOGLYC 06/28/2016 WIN DO, VIKY K Ot Z79.899 OTHER TANK FARM OPERATOR (CURRENT) DRUG THERAPY 06/30/2016 WIN DO, VIKY [...] 06/30/2016 WIN DO, VIKY K Ot Z79.4 ASSISTED (CURRENT) USE OF INSULIN 06/30/2016 WIN DO, VIKY K Ot Z79.84 TANK FARM OPERATOR (CURRENT) USE OF ORAL HYPOGLYC 06/30/2016 WIN DO, VIKY K Ot Z79.899 OTHER TANK FARM OPERATOR (CURRENT) DRUG THERAPY 08/14/2016 WIN DO, VIKY [...] 08/14/2016 WIN DO, VIKY K Ot Z79.4 ASSISTED (CURRENT) USE OF INSULIN 08/14/2016 WIN DO, VIKY K Ot Z79.84 ASSISTED (CURRENT) USE OF ORAL HYPOGLYC 08/14/2016 WIN DO, VIKY K Ot Z79.899 OTHER TANK FARM OPERATOR (CURRENT) DRUG THERAPY 03/28/2017 VIKY MELÉNDEZ ACID CONDENSER-C Ot D64.9 ANEMIA, UNSPECIFIED 03/28/2017 VIKY MELÉNDEZ. 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 ACID CONDENSER-C Ot E87.5 HYPERKALEMIA 03/28/2017 VIKY MELÉNDEZ G. ACID CONDENSER-C Ot E88.0 9 OTH DISORDERS OF PLASMA-PROTEIN METABOLI 03/28/2017 VIKY MELÉNDEZ G. ACID CONDENSER-C Ot I12.9 HYPERTENSIVE CHRONIC KIDNEY DISEASE W ST 03/28/2017 NEWVIKY G. ACID CONDENSER-C Ot N18.4 CHRONIC KIDNEY DISEASE, STAGE 4 (SEVERE) 03/28/2017 NEWVIKY G. 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 03/28/2017 MASON MCCANN MD Ot N18.6 END STAGE RENAL DISEASE 03/28/2017 MASON MCCANN MD Ot R11.2 NAUSEA WITH VOMITING, UNSPECIFIED 03/28/2017 MASON MCCANN MD, Ot R19.7 DIARRHEA, UNSPECIFIED 03/28/2017 MASON MCCANN MD Ot Z79.4 TANK FARM OPERATOR (CURRENT) USE OF INSULIN 03/28/2017 MASON MCCANN MD Ot Z99.2 DEPENDENCE ON RENAL DIALYSIS 03/31/2017 SHARMIN ALFREDO MD Ot E11.22 TYPE 2 DIABETES MELLITUS W DIABETIC PHYSICIAN PRACTICE MANAGER 03/31/2017 SHARMIN ALFREDO MD Ot E11.51 TYPE 2 DIABETES W DIABETIC PERIPHERAL AN 03/31/2017 SHARMIN ALFREDO MD Ot E11.65 TYPE 2 DIABETES MELLITUS WITH HYPERGLYCE 03/31/2017 SHARMIN ALFREDO MD Ot E87.2 ACIDOSIS 03/31/2017 SHARMIN ALFREDO MD Ot I12.0 HYP CHR KIDNEY DISEASE W STAGE 5 CHR KID 03/31/2017 SHARMIN ALFREDO MD Ot I73.9 PERIPHERAL VASCULAR DISEASE, UNSPECIFIED 03/31/2017 SHARMIN ALFREDO MD Ot N18.6 END STAGE RENAL DISEASE 03/31/2017 SHARMIN ALFREDO MD Ot R56.9 UNSPECIFIED CONVULSIONS 03/31/2017 SHARMIN ALFREDO MD Ot Z77.22 CNTCT W AND EXPSR TO ENVIRON TOBACCO SMO 03/31/2017 SHARMIN ALFREDO MD Ot Z79.4 ASSISTED (CURRENT) USE OF INSULIN 03/31/2017 SHARMIN ALFREDO MD Ot Z86.73 PRSNL HX OF TIA (TIA), AND CEREB INFRC W 04/01/2017 SHARMIN ALFREDO MD Ot E11.22 TYPE 2 DIABETES MELLITUS W DIABETIC PHYSICIAN PRACTICE MANAGER 04/01/2017 SHARMIN ALFREDO MD Ot E11.51 TYPE 2 DIABETES W DIABETIC PERIPHERAL AN 04/01/2017 SHARMIN ALFREDO MD Ot E11.65 TYPE 2 DIABETES MELLITUS WITH HYPERGLYCE 04/01/2017 SHARMIN ALFREDO MD Ot E87.2 ACIDOSIS 04/01/2017 SHARMIN ALFREDO MD Ot I12.0 HYP CHR KIDNEY DISEASE W STAGE 5 CHR KID 04/01/2017 SHARMIN ALFREDO MD Ot I73.9 PERIPHERAL VASCULAR DISEASE, UNSPECIFIED 04/01/2017 SHARMIN ALFREDO MD, Ot N18.6 END STAGE RENAL DISEASE 04/01/2017 SHARMIN ALFREDO MD, Ot R56.9 UNSPECIFIED CONVULSIONS 04/01/2017 SHARMIN ALFREDO MD, Ot Z77.22 CNTCT W AND EXPSR TO ENVIRON TOBACCO SMO 04/01/2017 SHARMIN ALFREDO MD, Ot Z79.4 TANK FARM OPERATOR (CURRENT) USE OF INSULIN 04/01/2017 SHARMIN ALFREDO MD, Ot Z86.73 PRSNL HX OF TIA (TIA), AND CEREB INFRC W 04/12/2017 LOI FLEMING MD Ot D63.1 ANEMIA IN CHRONIC KIDNEY DISEASE 04/12/2017 LOI FLEMING MD Ot E11.6 10 TYPE 2 DIABETES MELLITUS W DIABETIC NEUR 04/12/2017 LOI FLEMING MD Ot E11.6 5 TYPE 2 DIABETES MELLITUS WITH HYPERGLYCE 04/12/2017 LOI FLEMING MD Ot G40.9 09 EPILEPSY, UNSP, NOT INTRACTABLE, WITHOUT 04/12/2017 LOI FLEMING MD Ot G93.4 1 METABOLIC ENCEPHALOPATHY 04/12/2017 LOI FLEMING MD Ot I12.0 HYP CHR KIDNEY DISEASE W STAGE 5 CHR KID 04/12/2017 LOI FLEMING MD Ot I73.9 PERIPHERAL VASCULAR DISEASE, UNSPECIFIED 04/12/2017 LOI FLEMING MD Ot N18.5 CHRONIC KIDNEY DISEASE, STAGE 5 04/12/2017 LOI FLEMING MD Ot N18.6 END STAGE RENAL DISEASE 04/12/2017 LOI FLEMING MD Ot Z79.4 ASSISTED (CURRENT) USE OF INSULIN 04/12/2017 LOI FLEMING MD Ot Z99.2 DEPENDENCE ON RENAL DIALYSIS 05/27/2017 RADHA MAKI, ROULA Polanco Ot R26 .2 DIFFICULTY IN WALKING, NOT ELSEWHERE CLA 02/25/2018 ALICE POMPA TIRE RECAPPER Ot R05 COUGH 02/25/2018 ALICE POMPA APRN Ot R06.02 SHORTNESS OF BREATH 03/17/2018 ALICE POMPA TIRE RECAPPER Ot R05 COUGH 03/17/2018 ALICE POMPA APRN Ot R06.02 SHORTNESS OF BREATH 09/08/2018 SHARMIN ALFREDO MD Ot E11.40 TYPE 2 DIABETES MELLITUS WITH DIABETIC N 09/08/2018 SHARMIN ALFREDO MD Ot E11.51 TYPE 2 DIABETES W DIABETIC PERIPHERAL AN 09/08/2018 SHARMIN ALFREDO MD Ot E11.649 TYPE 2 DIABETES MELLITUS WITH HYPOGLYCEM 09/08/2018 SHARMIN ALFREDO MD Ot G40.909 EPILEPSY, UNSP, NOT INTRACTABLE, WITHOUT 09/08/2018 SHARMIN ALFREDO MD Ot I10 ESSENTIAL (PRIMARY) HYPERTENSION 09/08/2018 SHARMIN ALFREDO MD Ot R41.82 ALTERED MENTAL STATUS, UNSPECIFIED 09/08/2018 SHARMIN ALFREDO MD Ot Z79.4 TANK FARM OPERATOR (CURRENT) USE OF INSULIN 09/08/2018 SHARMIN ALFREDO MD Ot Z82.49 FAMILY HX OF ISCHEM HEART DIS AND OTH DI 09/08/2018 SHARMIN ALFREDO MD Ot Z99.2 DEPENDENCE ON RENAL DIALYSIS 09/10/2018 SHARMIN ALFREDO MD Ot E11.40 TYPE 2 DIABETES MELLITUS WITH DIABETIC N 09/10/2018 SHARMIN ALFREDO MD Ot E11.51 TYPE 2 DIABETES W DIABETIC PERIPHERAL AN 09/10/2018 SHARMIN ALFREDO MD Ot E11.649 TYPE 2 DIABETES MELLITUS WITH HYPOGLYCEM 09/10/2018 SHARMIN ALFREDO MD Ot G40.909 EPILEPSY, UNSP, NOT INTRACTABLE, WITHOUT 09/10/2018 SHARMIN ALFREDO MD Ot I10 ESSENTIAL (PRIMARY) HYPERTENSION 09/10/2018 SHARMIN ALFREDO MD Ot R41.82 ALTERED MENTAL STATUS, UNSPECIFIED 09/10/2018 SHARMIN ALFREDO MD Ot Z79.4 ASSISTED (CURRENT) USE OF INSULIN 09/10/2018 SHARMIN ALFREDO MD Ot Z82.49 FAMILY HX OF ISCHEM HEART DIS AND OTH DI 09/10/2018 SHARMIN ALFREDO MD Ot Z99.2 DEPENDENCE ON RENAL DIALYSIS 10/07/2018 ALICE POMPA APRN Ot R05 COUGH 10/07/2018 ALICE POMPA TIRE RECAPPER Ot R06.02 SHORTNESS OF BREATH 10/28/2018 ALICE POMPA TIRE RECAPPER Ot R05 COUGH 10/28/2018 ALICE POMPA TIRE RECAPPER Ot R06.02 SHORTNESS OF BREATH 03/19/2019 SUNITHA BRAXTON APRN Ot E11.22 TYPE 2 DIABETES MELLITUS W DIABETIC PHYSICIAN PRACTICE MANAGER 03/19/2019 SUNITHA BRAXTON APRN Ot E11.40 TYPE 2 DIABETES MELLITUS WITH DIABETIC N 03/19/2019 SUNITHA BRAXTON APRN Ot E11.649 TYPE 2 DIABETES MELLITUS WITH HYPOGLYCEM 03/19/2019 SUNITHA BRAXTON APRN Ot E16 .2 HYPOGLYCEMIA, UNSPECIFIED 03/19/2019 SUNITHA BRAXTON APRN Ot I12 .9 HYPERTENSIVE CHRONIC KIDNEY DISEASE W ST 03/19/2019 SUNITHA BRAXTON APRN Ot N18 .9 CHRONIC KIDNEY DISEASE, UNSPECIFIED 03/19/2019 SUNITHA BRAXTON APRN Ot Z79 .4 TANK FARM OPERATOR (CURRENT) USE OF INSULIN 03/19/2019 SUNITHA BRAXTON APRN Ot Z82.49 FAMILY HX OF ISCHEM HEART DIS AND OTH DI 03/19/2019 SUNITHA BRAXTON APRN Ot Z99 .2 DEPENDENCE ON RENAL DIALYSIS 03/19/2019 ALICE POMPA TIRE RECAPPER Ot R05 COUGH 03/19/2019 ALICE POMPA TIRE RECAPPER Ot R06.02 SHORTNESS OF BREATH 03/19/2019 ALEXANDREA MAKI, ILYA S Ot Z53.9 PROCEDURE AND TREATMENT NOT CARRIED OUT, 03/19/2019 ALEXANDREA MAKI, AHMED S Ot M25.511 PAIN IN RIGHT SHOULDER 03/19/2019 ALEXANDREA MAKI, AHMED S Ot M54.2 CERVICALGIA 03/24/2019 SUNITHA BRAXTON APRN Ot E11.22 TYPE 2 DIABETES MELLITUS W DIABETIC PHYSICIAN PRACTICE MANAGER 03/24/2019 SUNITHA BRAXTON APRN Ot E11.40 TYPE 2 DIABETES MELLITUS WITH DIABETIC N 03/24/2019 SUNITHA BRAXTON APRN Ot E11.649 TYPE 2 DIABETES MELLITUS WITH HYPOGLYCEM 03/24/2019 SUNITHA BRAXTON APRN Ot E16 .2 HYPOGLYCEMIA, UNSPECIFIED 03/24/2019 BRAXTON, PETER J TIRE RECAPPER Ot I12 .9 HYPERTENSIVE CHRONIC KIDNEY DISEASE W ST 03/24/2019 SUNITHA BRAXTON TIRE RECAPPER Ot N18 .9 CHRONIC KIDNEY DISEASE, UNSPECIFIED 03/24/2019 SUNITHA BRAXTON APRN Ot Z79 .4 ASSISTED (CURRENT) USE OF INSULIN 03/24/2019 SUNITHA BRAXTON TIRE RECAPPER Ot Z82.49 FAMILY HX OF ISCHEM HEART DIS AND OTH DI 03/24/2019 SUNITHA BRAXTON APRN Ot Z99 .2 DEPENDENCE ON RENAL DIALYSIS 04/10/2019 MINNIE DYE DOTT D Ot Z01.818 ENCOUNTER FOR OTHER PREPROCEDURAL EXAMIN 04/14/2019 HARDIK ANTONIO YESSI D Ot D64. 9 ANEMIA, UNSPECIFIED 04/14/2019 HARDIK ANTONIO YESSI D Ot E11. 22 TYPE 2 DIABETES MELLITUS W DIABETIC PHYSICIAN PRACTICE MANAGER 04/14/2019 HARDIK ANTONIO YESSI D Ot E11. 40 TYPE 2 DIABETES MELLITUS WITH DIABETIC N 04/14/2019 MINNIE DYE DOTT D Ot I12. 0 HYP CHR KIDNEY DISEASE W STAGE 5 CHR KID 04/14/2019 DYE DO YESSI D Ot I73. 9 PERIPHERAL VASCULAR DISEASE, UNSPECIFIED 04/14/2019 HARDIK ANTONIO, YESSI D Ot K21. 9 GASTRO-ESOPHAGEAL REFLUX DISEASE WITHOUT 04/14/2019 HARDIK ANTONIO, YESSI D Ot K25. 9 GASTRIC ULCER, UNSP ACUTE OR CHRONIC, 04/14/2019 DYE DO YESSI D Ot K31. 7 POLYP OF STOMACH AND DUODENUM 04/14/2019 DYE DO YESSI D Ot K31. 89 OTHER DISEASES OF STOMACH AND DUODENUM 04/14/2019 HARDIK ANTONIO YESSI D Ot N18. 6 END STAGE RENAL DISEASE 04/14/2019 DYE DO, YESSI D Ot R19. 7 DIARRHEA, UNSPECIFIED 04/14/2019 DYE DO YESSI D Ot Z79. 4 ASSISTED (CURRENT) USE OF INSULIN 04/14/2019 HARDIK ANTONIO YESSI D Ot Z79.891 ASSISTED (CURRENT) USE OF OPIATE ANALGE 04/14/2019 HARDIK ANTONIO YESSI D Ot Z79.899 OTHER TANK FARM OPERATOR (CURRENT) DRUG THERAPY 04/14/2019 MINNIE YDE DOTT D Ot Z82. 49 FAMILY HX OF ISCHEM HEART DIS AND OTH DI 04/14/2019 YESSI DYE DO Ot Z83. 3 FAMILY HISTORY OF DIABETES MELLITUS 04/16/2019 YESSI DYE DO Ot Z01.818 ENCOUNTER FOR OTHER PREPROCEDURAL EXAMIN 04/18/2019 YESSI DYE DO Ot D64. 9 ANEMIA, UNSPECIFIED 04/18/2019 YESSI DYE DO Ot E11. 22 TYPE 2 DIABETES MELLITUS W DIABETIC PHYSICIAN PRACTICE MANAGER 04/18/2019 YESSI DYE DO Ot E11. 40 TYPE 2 DIABETES MELLITUS WITH DIABETIC N 04/18/2019 YESSI DYE DO Ot I12. 0 HYP CHR KIDNEY DISEASE W STAGE 5 CHR KID 04/18/2019 YESSI DYE DO Ot I73. 9 PERIPHERAL VASCULAR DISEASE, UNSPECIFIED 04/18/2019 YESSI DYE DO Ot K21. 9 GASTRO-ESOPHAGEAL REFLUX DISEASE WITHOUT 04/18/2019 YESSI DYE DO Ot K25. 9 GASTRIC ULCER, UNSP ACUTE OR CHRONIC, 04/18/2019 YESSI DYE DO Ot K31. 7 POLYP OF STOMACH AND DUODENUM 04/18/2019 YESSI DYE DO Ot K31. 89 OTHER DISEASES OF STOMACH AND DUODENUM 04/18/2019 YESSI DEY DO Ot N18. 6 END STAGE RENAL DISEASE 04/18/2019 YESSI DYE DO Ot R19. 7 DIARRHEA, UNSPECIFIED 04/18/2019 YESSI DYE DO Ot Z79. 4 ASSISTED (CURRENT) USE OF INSULIN 04/18/2019 YESSI DYE DO Ot Z79.891 ASSISTED (CURRENT) USE OF OPIATE ANALGE 04/18/2019 YESSI DYE DO Ot Z79.899 OTHER TANK FARM OPERATOR (CURRENT) DRUG THERAPY 04/18/2019 YESSI DYE DO Ot Z82. 49 FAMILY HX OF ISCHEM HEART DIS AND OTH DI 04/18/2019 YESSI DYE DO Ot Z83. 3 FAMILY HISTORY OF DIABETES MELLITUS 05/09/2019 YESSI DYE DO Ot D64. 9 ANEMIA, UNSPECIFIED 05/09/2019 YESSI DYE DO Ot E11. 22 TYPE 2 DIABETES MELLITUS W DIABETIC PHYSICIAN PRACTICE MANAGER 05/09/2019 YESSI DYE DO Ot E11. 40 TYPE 2 DIABETES MELLITUS WITH DIABETIC N 05/09/2019 MINNIE DYE DOTT D Ot I12. 0 HYP CHR KIDNEY DISEASE W STAGE 5 CHR KID 05/09/2019 DYE YESSI ANTONIO Ot I73. 9 PERIPHERAL VASCULAR DISEASE, UNSPECIFIED 05/09/2019 [facility] GASTRO-ESOPHAGEAL REFLUX DISEASE WITHOUT 05/09/2019 [facility]. 9 GASTRIC ULCER, UNSP ACUTE OR CHRONIC, 05/09/2019 DYE DOYESSI Ot K31. 7 POLYP OF STOMACH AND DUODENUM 05/09/2019 [facility]. 89 OTHER DISEASES OF STOMACH AND DUODENUM 05/09/2019 DYE DOYESSI Ot N18. 6 END STAGE RENAL DISEASE 05/09/2019 DYE DOYESSI Ot R19. 7 DIARRHEA, UNSPECIFIED 05/09/2019 [facility] Z79. 4 TANK FARM OPERATOR (CURRENT) USE OF INSULIN 05/09/2019 [facility] Z79.891 TANK FARM OPERATOR (CURRENT) USE OF OPIATE ANALGE 05/09/2019 [facility] Z79.899 OTHER TANK FARM OPERATOR (CURRENT) DRUG THERAPY 05/09/2019 [facility] Z82. 49 FAMILY HX OF ISCHEM HEART DIS AND OTH DI 05/09/2019 [facility]. 3 FAMILY HISTORY OF DIABETES MELLITUS 05/16/2019 ALICE POMPA APRN Ot R05 COUGH 05/16/2019 ALICE POMPA APRN Ot R06.02 SHORTNESS OF BREATH 05/16/2019 ALEXANDREA MAKI, ILYA Will Ot Z53.9 PROCEDURE AND TREATMENT NOT CARRIED OUT, 05/16/2019 ALEXANDREA MAKI, ILYA Will Ot M25.511 PAIN IN RIGHT SHOULDER 05/16/2019 ALEXANDREA MAKI, ILYA Will Ot M54.2 CERV[facility]GIA 05/16[facility]2019 [facility] ANEMIA, UNSPECIFIED 05/16/2019 DYE YESSI ANTONIO Ot E11. 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 0 HYP CHR KIDNEY DISEASE W STAGE 5 CHR KID 05/16/2019 YESSI DYE DO Ot I73. 9 PERIPHERAL VASCULAR DISEASE, UNSPECIFIED 05/16/2019 YESSI DYE DO Ot K21. 9 GASTRO-ESOPHAGEAL REFLUX DISEASE WITHOUT 05/16/2019 YESSI DYE DO Ot K25. 9 GASTRIC ULCER, UNSP ACUTE OR CHRONIC, 05/16/2019 YESSI DYE DO Ot K31. 7 POLYP OF STOMACH AND DUODENUM 05/16/2019 DYE DOYESSI Ot K31. 89 OTHER DISEASES OF STOMACH AND DUODENUM 05/16/2019 YESSI DYE DO Ot N18. 6 END STAGE RENAL DISEASE 05/16/2019 YESSI DYE DO Ot R19. 7 DIARRHEA, UNSPECIFIED 05/16/2019 DYE YESSI ANTONIO Ot Z79. 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 49 FAMILY HX OF ISCHEM HEART DIS AND OTH DI 05/16/2019 YESSI DYE DO Ot Z83. 3 FAMILY HISTORY OF DIABETES MELLITUS 05/17/2019 YESSI DYE DO Ot Z01.818 ENCOUNTER FOR OTHER PREPROCEDURAL EXAMIN 05/19/2019 ALICE POMPA APRN Ot R05 COUGH 05/19/2019 ALICE POMPA APRN Ot R06.02 SHORTNESS OF BREATH 05/19/2019 ALEXANDREA MAKI, ILYA Will Ot Z53.9 PROCEDURE AND TREATMENT NOT CARRIED OUT, 05/19/2019 ALEXANDREA MAKI, ILYA Will Ot M25.511 PAIN IN RIGHT SHOULDER 05/19/2019 ALEXANDREA MAKI, ILYA Will Ot M54.2 CERVICALGIA 05/19/2019 YESSI DYE DO Ot D64. 9 ANEMIA, UNSPECIFIED 05/19/2019 YESSI DYE DO Ot E11. 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 0 HYP CHR KIDNEY DISEASE W STAGE 5 CHR KID 05/19/2019 YESSI DYE DO Ot I73. 9 PERIPHERAL VASCULAR DISEASE, UNSPECIFIED 05/19/2019 YESSI DYE DO Ot K21. 9 GASTRO-ESOPHAGEAL REFLUX DISEASE WITHOUT 05/19/2019 YESSI DYE DO Ot K25. 9 GASTRIC ULCER, UNSP ACUTE OR CHRONIC, 05/19/2019 YESSI DYE DO Ot K31. 7 POLYP OF STOMACH AND DUODENUM 05/19/2019 YESSI DYE DO Ot K31. 89 OTHER DISEASES OF STOMACH AND DUODENUM 05/19/2019 YESSI DYE DO Ot N18. 6 END STAGE RENAL DISEASE 05/19/2019 DYE YESSI ANTONIO Ot R19. 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 49 FAMILY HX OF ISCHEM HEART DIS AND OTH DI 05/19/2019 YESSI DYE DO Ot Z83. 3 FAMILY HISTORY OF DIABETES MELLITUS Procedures Code Description [place] [address] A1C (IN-HOUSE) 02/28/2013 33426 MICR O ALBUMIN-IN HOUSE 02/28/2013 72229 MICR OALBUMIN 02/28/2013 55227 ROUT INE VENIPUNCTURE 04/06/2013 [facility] IR ON GROUP (Iron,TIBC, Ferritin) 04/06/[id number] GF R CALC (RESULT ONLY) 04/06/2013 44655 CMP 04/06/2013 00131 LIPI D PANEL 04/06/2013 16428 CBC 04/06/2013 45957 TSH 04/06/2013 90615 C-PEPTIDE 04/07/2013 02436 IRON SERUM 04/11/2013 20237 IRON BNDNG CAP 04/11/2013 14204 FERRITIN 04/11/2013 80111 ROUT INE VENIPUNCTURE 03/05/2014 35860 MICR O ALBUMIN-IN HOUSE 03/05/2014 12358 A1C (IN-HOUSE) 03/05/2014 30057 CBC 03/06/2014 63043 URIC ACID 03/06/2014 13155 MICR OALBUMIN 03/06/2014 Results Test Result Range Complete blood count (CBC) with automate d white blood cell (WBC) differential - 06/28/16 08:30 Blood leukocytes automated count (number/volume) 9.7 10*3/uL 4.3-11.0 Blood erythrocytes automated count (number/volume) 3.64 10*6/uL 4.35-5.85 Venous blood hemoglobin measurement (mass/volume) 8.9 g/dL 13.3-17.7 Blood hematocrit (volume fraction) 26 % 40-54 Automated erythrocyte mean corpuscular volume 73 [ foz_us] 80-99 Automated erythrocyte mean corpuscular h emoglobin (mass per erythrocyte) 25 pg 25-34 Automated erythrocyte mean corpuscular h emoglobin concentration measurement (mass/volume) 34 g/dL 32-36 Automated erythrocyte distribution width ratio 16. 2 % 10.0- 14.5 Automated blood platelet count (count/volume) 269 10*3/uL [...] 10*3 1.0-4.0 Blood monocytes automated count (number/volume) 1. 0 10*3 0.0-1.0 Automated eosinophil count 0.2 10*3/uL 0 .0-0.3 Automated blood basophil count (count/volume) 0.0 10*3/uL 0.0-0.1 PT panel in platelet poor plasma by coag ulation assay - 06/28/16 08:30 Prothrombin time (PT) in platelet poor plasma by coagu lation assay 15.9 s 12.2-14.7 INR in platelet poor plasma or blood by coagulation as say 1.3 0.8-1.4 Activated partial thromboplastin time (a PTT) in platelet poor plasma bycoagulation assay - 06/28/16 08:30 Activated partial thromboplastin time (a PTT) in platelet poor plasma bycoagulation assay 32 s 24-35 Comprehensive metabolic panel - 06/28/16 08:30 Serum or plasma sodium measurement (moles/volume) 139 mmol/L 135-145 Serum or plasma potassium measurement (moles/volume) 5.0 mmol/L 3.6-5.0 Serum or plasma chloride measurement (moles/volume) 110 mmol/L 98-107 Carbon dioxide 17 mmol/L 21-32 Serum or plasma anion gap determination (moles/volume) 12 mmol/L 5-14 Serum or plasma urea nitrogen measurement (mass/volume ) 53 mg/dL 7-18 Serum or plasma creatinine measurement (mass/volume) 4.76 mg/dL 0.60-1.30 Serum or plasma urea nitrogen/creatinine mass ratio 11 NRG Serum or plasma creatinine measurement w ith calculation of estimated glomerular filtration rate 16 NRG Serum or plasma glucose measurement (mass/volume) 194 mg/dL 70-105 Serum or plasma calcium measurement (mass/volume) 6.9 mg/dL 8.5-10.1 Serum or plasma total bilirubin measurement (mass/volu me) 0.7 mg/dL 0.1-1.0 Serum or plasma alkaline phosphatase bro surement (enzymatic activity/volume) 161 U/L 40-136 Serum or plasma aspartate aminotransfera se measurement (enzymatic activity/volume) 18 U/L 5-34 Serum or plasma alanine aminotransferase measurement (enzymatic activity/volume) 22 U/L 0-55 Serum or plasma protein measurement (mass/volume) 6.3 g/dL 6.4-8.2 Serum or plasma albumin measurement (mass/volume) 3.4 g/dL 3.2-4.5 Magnesium - 06/28/16 08:30 Magnesium 1.8 mg/dL 1.8-2.4 Serum or plasma troponin i.cardiac measu rement (mass/volume) - 06/28/16 08:30 Serum or plasma troponin i.cardiac measurement (mass/v olume) < ng/mL <0.30 Serum or plasma lithium measurement (mol es/volume) - 06/28/16 08:30 BNP level 3956.7 pg/mL <100.0 Complete blood count (CBC) with automate d white blood cell (WBC) differential - 03/28/17 16:40 Blood leukocytes automated count (number/volume) 10.0 10*3/uL 4.3-11.0 Blood erythrocytes automated count (number/volume) 4.45 10*6/uL 4.35-5.85 Venous blood hemoglobin measurement (mass/volume) 12.5 g/dL 13.3-17.7 Blood hematocrit (volume fraction) 32 % 40-54 Automated erythrocyte mean corpuscular volume 73 [ foz_us] 80-99 Automated erythrocyte mean corpuscular h emoglobin (mass per erythrocyte) 28 pg 25-34 Automated erythrocyte mean corpuscular h emoglobin concentration measurement (mass/volume) 39 g/dL 32-36 Automated erythrocyte distribution width ratio 14. 9 % 10.0- 14.5 Automated blood platelet count (count/volume) 245 10*3/uL [...] 10*3 1.0-4.0 Blood monocytes automated count (number/volume) 1. 0 10*3 0.0-1.0 Automated eosinophil count 0.0 10*3/uL 0 .0-0.3 Automated blood basophil count (count/volume) 0.1 10*3/uL 0.0-0.1 PT panel in platelet poor plasma by coag ulation assay - 03/28/17 16:40 Prothrombin time (PT) in platelet poor plasma by coagu lation assay 13.8 s 12.2-14.7 INR in platelet poor plasma or blood by coagulation as say 1.1 0.8-1.4 Activated partial thromboplastin time (a PTT) in platelet poor plasma bycoagulation assay - 03/28/17 16:40 Activated partial thromboplastin time (a PTT) in platelet poor plasma bycoagulation assay 26 s 24-35 Comprehensive metabolic panel - 03/28/17 16:40 Serum or plasma sodium measurement (moles/volume) 124 mmol/L 135-145 Serum or plasma potassium measurement (moles/volume) 3.1 mmol/L 3.6-5.0 Serum or plasma chloride measurement (moles/volume) 82 mmol/L 98-107 Carbon dioxide 25 mmol/L 21-32 Serum or plasma anion gap determination (moles/volume) 17 mmol/L 5-14 Serum or plasma urea nitrogen measurement (mass/volume ) 30 mg/dL 7-18 Serum or plasma creatinine measurement (mass/volume) 6.90 mg/dL 0.60-1.30 Serum or plasma urea nitrogen/creatinine mass ratio 4 NRG Serum or plasma creatinine measurement w ith calculation of estimated glomerular filtration rate 10 NRG Serum or plasma glucose measurement (mass/volume) 691 mg/dL 70-105 Serum or plasma calcium measurement (mass/volume) 8.0 mg/dL 8.5-10.1 Serum or plasma total bilirubin measurement (mass/volu me) 0.5 mg/dL 0.1-1.0 Serum or plasma alkaline phosphatase bro surement (enzymatic activity/volume) 202 U/L 40-136 Serum or plasma aspartate aminotransfera se measurement (enzymatic activity/volume) 22 U/L 5-34 Serum or plasma alanine aminotransferase measurement (enzymatic activity/volume) 11 U/L 0-55 Serum or plasma protein measurement (mass/volume) 7.7 g/dL 6.4-8.2 Serum or plasma albumin measurement (mass/volume) 3.9 g/dL 3.2-4.5 Lipase - 03/28/17 16:40 Lipase 21 U/L 8-78 Complete urinalysis with reflex to cultu re - 03/28/17 16:45 Urine color determination YELLOW NRG Urine clarity determination CLEAR NR G Urine pH measurement by test strip 6 5-9 Specific gravity of urine by test strip 1.010 1.016-1.022 Urine protein assay by test strip, semi-quantitative 4+ NEGATIVE Urine glucose detection by automated test strip 4+ NEGATIVE Erythrocytes detection in urine sediment by light micr oscopy 4+ NEGATIVE Urine ketones detection by automated test strip NE GATIVE NEGATIVE Urine nitrite detection by test strip NEGATIVE NEGATIVE Urine total bilirubin detection by test strip NEGA TIVE NEGATIVE Urine urobilinogen measurement by automated test strip (mass/volume) NORMAL NORMAL Urine leukocyte esterase detection by dipstick NEG ATIVE NEGATIVE Automated urine sediment erythrocyte cou nt by microscopy (number/high power field) [HPF] NRG Automated urine sediment leukocyte count by microscopy (number/high power field) NONE NRG Bacteria detection in urine sediment by light microsco py TRACE NRG Squamous epithelial cells detection in u rine sediment by light microscopy RARE NRG Crystals detection in urine sediment by light microsco py NONE NRG Casts detection in urine sediment by light microscopy NONE NRG Mucus detection in urine sediment by light microscopy NEGATIVE NRG Complete urinalysis with reflex to culture NO NRG Amorphous sediment detection in urine sediment by ligh t microscopy RARE CAMI URATES NRG Influenza virus A and B antigen detectio n - 03/28/17 17:45 FLU RESULT NEGATIVE FOR INFLUENZA A AND B ANTIGENS BY IA NRG Capillary blood glucose measurement by g lucometer (mass/volume) - 03/28/17 19:58 Capillary blood glucose measurement by glucometer (mas s/volume) 384 mg/dL 70-110 Capillary blood glucose measurement by g lucometer (mass/volume) - 03/30/17 19:44 Capillary blood glucose measurement by glucometer (mas s/volume) > mg/dL 70-110 Complete blood count (CBC) with automate d white blood cell (WBC) differential - 03/30/17 19:45 Blood leukocytes automated count (number/volume) 13.5 10*3/uL 4.3-11.0 Blood erythrocytes automated count (number/volume) 4.22 10*6/uL 4.35-5.85 Venous blood hemoglobin measurement (mass/volume) 11.9 g/dL 13.3-17.7 Blood hematocrit (volume fraction) 32 % 40-54 Automated erythrocyte mean corpuscular volume 75 [ foz_us] 80-99 Automated erythrocyte mean corpuscular h emoglobin (mass per erythrocyte) 28 pg 25-34 Automated erythrocyte mean corpuscular h emoglobin concentration measurement (mass/volume) 38 g/dL 32-36 Automated erythrocyte distribution width ratio 15. 0 % 10.0- 14.5 Automated blood platelet count (count/volume) 290 10*3/uL [...] 10*3 1.0-4.0 Blood monocytes automated count (number/volume) 0. 8 10*3 0.0-1.0 Automated eosinophil count 0.1 10*3/uL 0 .0-0.3 Automated blood basophil count (count/volume) 0.0 10*3/uL 0.0-0.1 PT panel in platelet poor plasma by coag ulation assay - 03/30/17 19:45 Prothrombin time (PT) in platelet poor plasma by coagu lation assay 13.0 s 12.2-14.7 INR in platelet poor plasma or blood by coagulation as say 1.0 0.8-1.4 Activated partial thromboplastin time (a PTT) in platelet poor plasma bycoagulation assay - 03/30/17 19:45 Activated partial thromboplastin time (a PTT) in platelet poor plasma bycoagulation assay 24 s 24-35 Fibrin D-dimer FEU measurement in platel et poor plasma (mass/volume) - 03/30/17 19:45 Fibrin D-dimer FEU measurement in platelet [...] 5-14 Serum or plasma urea nitrogen measurement (mass/volume ) 27 mg/dL 7-18 Serum or plasma creatinine measurement (mass/volume) 7.52 mg/dL 0.60-1.30 Serum or plasma urea nitrogen/creatinine mass ratio 4 NRG Serum or plasma creatinine measurement w ith calculation of estimated glomerular filtration rate 9 NRG Serum or plasma glucose measurement (mass/volume) 764 mg/dL 70-105 Serum or plasma calcium measurement (mass/volume) 7.7 mg/dL 8.5-10.1 Serum or plasma total bilirubin measurement (mass/volu me) 0.3 mg/dL 0.1-1.0 Serum or plasma alkaline phosphatase bro surement (enzymatic activity/volume) 159 U/L 40-136 Serum or plasma aspartate aminotransfera se measurement (enzymatic activity/volume) 19 U/L 5-34 Serum or plasma alanine aminotransferase measurement (enzymatic activity/volume) 14 U/L 0-55 Serum or plasma protein measurement (mass/volume) 7.7 g/dL 6.4-8.2 Serum or plasma albumin measurement (mass/volume) 3.9 g/dL 3.2-4.5 Serum or plasma creatine kinase measurem ent (enzymatic activity/volume) - 03/30/17 19:45 Serum or plasma creatine kinase measurem ent (enzymatic activity/volume) 388 U/L 30-200 Serum or plasma creatine kinase MB measu rement (enzymatic activity/volume) - 03/30/17 19:45 Serum or plasma creatine kinase MB measu rement (enzymatic activity/volume) 5.8 ng/mL <6.6 Serum or plasma troponin i.cardiac measu rement (mass/volume) - 03/30/17 19:45 Serum or plasma troponin i.cardiac measurement (mass/v olume) < ng/mL <0.30 Myoglobin, serum - 03/30/17 19:45 Myoglobin, serum 387.0 ng/mL 10.0-92.0 Serum or plasma thyrotropin measurement by detection limit <=0.05 miu/l (units/volume) - 03/30/17 19:45 Serum or plasma thyrotropin measurement by detection limit <=0.05 miu/l (units/volume) 1.66 u[iU]/mL 0.35-4.94 Serum or plasma salicylates measurement (mass/volume) - 03/30/17 19:45 Serum or plasma salicylates measurement (mass/volume) < mg/dL 5.0-20.0 Serum or plasma acetaminophen measuremen t (mass/volume) - 03/30/17 19:45 Serum or plasma acetaminophen measurement (mass/volume ) < ug/mL 10-30 Serum or plasma ethanol measurement (mas s/volume) - 03/30/17 19:45 Serum or plasma ethanol measurement (mass/volume) < mg/dL <10 Urine drug screening test - 03/30/17 19: 45 Urine phencyclidine detection by screening method NEGATIVE NEGATIVE Urine benzodiazepines detection by screening method NEGATIVE NEGATIVE Urine cocaine detection NEGATIVE NEGATI VE Urine amphetamines detection by screening method N EGATIVE NEGATIVE Urine methamphetamine detection by screening method NEGATIVE NEGATIVE Urine cannabinoids detection by screening method N EGATIVE NEGATIVE Urine opiates detection by screening method NEGATI VE NEGATIVE Urine barbiturates detection NEGATIVE N EGATIVE Screening urine tricyclic antidepressants detection NEGATIVE NEGATIVE Urine methadone detection by screening method NEGA TIVE NEGATIVE Urine oxycodone detection NEGATIVE NEGA TIVE Urine propoxyphene detection NEGATIVE N EGATIVE Complete urinalysis with reflex to cultu re - 03/30/17 19:45 Urine color determination YELLOW NRG Urine clarity determination CLEAR NR G Urine pH measurement by test strip 5 5-9 Specific gravity of urine by test strip 1.005 1.016-1.022 Urine protein assay by test strip, semi-quantitative 3+ NEGATIVE Urine glucose detection by automated test strip 4+ NEGATIVE Erythrocytes detection in urine sediment by light micr oscopy 3+ NEGATIVE Urine ketones detection by automated test strip NE GATIVE NEGATIVE Urine nitrite detection by test strip NEGATIVE NEGATIVE Urine total bilirubin detection by test strip NEGA TIVE NEGATIVE Urine urobilinogen measurement by automated test strip (mass/volume) NORMAL NORMAL Urine leukocyte esterase detection by dipstick NEG ATIVE NEGATIVE Automated urine sediment erythrocyte cou nt by microscopy (number/high power field) [HPF] NRG Automated urine sediment leukocyte count by microscopy (number/high power field) NONE NRG Bacteria detection in urine sediment by light microsco py NONE NRG Crystals detection in urine sediment by light microsco py NONE NRG Casts detection in urine sediment by light microscopy NONE NRG Mucus detection in urine sediment by light microscopy NEGATIVE NRG Complete urinalysis with reflex to culture NO NRG Blood lactic acid measurement (moles/vol ume) - 03/30/17 21:11 Blood lactic acid measurement (moles/volume) 6.87 mmol/L 0.50-2.00 Capillary blood glucose measurement by g lucometer (mass/volume) - 03/30/17 21:23 Capillary blood glucose measurement by glucometer (mas s/volume) 534 mg/dL 70-110 Serum or plasma lactate measurement (mol es/volume) - 03/30/17 23:10 Serum or plasma lactate measurement (moles/volume) 3.78 mmol/L 0.50-2.00 Capillary blood glucose measurement by g lucometer (mass/volume) - 03/30/17 23:43 Capillary blood glucose measurement by glucometer (mas s/volume) 302 mg/dL 70-110 Capillary blood glucose measurement by g lucometer (mass/volume) - 04/06/17 05:39 Capillary blood glucose measurement by glucometer (mas s/volume) 198 mg/dL 70-110 Automated blood complete blood count (he mogram) panel - 04/06/17 07:10 Blood leukocytes automated count (number/volume) 7.6 10*3/uL 4.3-11.0 Blood erythrocytes automated count (number/volume) 3.80 10*6/uL 4.35-5.85 Venous blood hemoglobin measurement (mass/volume) 10.6 g/dL 13.3-17.7 Blood hematocrit (volume fraction) 29 % 40-54 Automated erythrocyte mean corpuscular volume 76 [ foz_us] 80-99 Automated erythrocyte mean corpuscular h emoglobin (mass per erythrocyte) 28 pg 25-34 Automated erythrocyte mean corpuscular h emoglobin concentration measurement (mass/volume) 37 g/dL 32-36 Automated erythrocyte distribution width ratio 15. 0 % 10.0- 14.5 Automated blood platelet count (count/volume) 291 10*3/uL 130-400 Automated blood platelet mean volume measurement 9.7 [foz_us] 7.4-10.4 Comprehensive metabolic panel - 04/06/17 07:10 Serum or plasma sodium measurement (moles/volume) 135 mmol/L 135-145 Serum or plasma potassium measurement (moles/volume) 4.1 mmol/L 3.6-5.0 Serum or plasma chloride measurement (moles/volume) 100 mmol/L 98-107 Carbon dioxide 24 mmol/L 21-32 Serum or plasma anion gap determination (moles/volume) 11 mmol/L 5-14 Serum or plasma urea nitrogen measurement (mass/volume ) 15 mg/dL 7-18 Serum or plasma creatinine measurement (mass/volume) 4.86 mg/dL 0.60-1.30 Serum or plasma urea nitrogen/creatinine mass ratio 3 NRG Serum or plasma creatinine measurement w ith calculation of estimated glomerular filtration rate 15 NRG Serum or plasma glucose measurement (mass/volume) 167 mg/dL 70-105 Serum or plasma calcium measurement (mass/volume) 8.2 mg/dL 8.5-10.1 Serum or plasma total bilirubin measurement (mass/volu me) 0.3 mg/dL 0.1-1.0 Serum or plasma alkaline phosphatase bro surement (enzymatic activity/volume) 105 U/L 40-136 Serum or plasma aspartate aminotransfera se measurement (enzymatic activity/volume) 19 U/L 5-34 Serum or plasma alanine aminotransferase measurement (enzymatic activity/volume) 11 U/L 0-55 Serum or plasma protein measurement (mass/volume) 6.7 g/dL 6.4-8.2 Serum or plasma albumin measurement (mass/volume) 3.2 g/dL 3.2-4.5 Capillary blood glucose measurement by g lucometer (mass/volume) - 04/06/17 11:14 Capillary blood glucose measurement by glucometer (mas s/volume) 305 mg/dL 70-110 Capillary blood glucose measurement by g lucometer (mass/volume) - 04/06/17 15:59 Capillary blood glucose measurement by glucometer (mas s/volume) 180 mg/dL 70-110 Capillary blood glucose measurement by g lucometer (mass/volume) - 04/06/17 20:02 Capillary blood glucose measurement by glucometer (mas s/volume) 118 mg/dL 70-110 Capillary blood glucose measurement by g lucometer (mass/volume) - 04/07/17 05:15 Capillary blood glucose measurement by glucometer (mas s/volume) 105 mg/dL 70-110 Capillary blood glucose measurement by g lucometer (mass/volume) - 04/07/17 10:52 Capillary blood glucose measurement by glucometer (mas s/volume) 203 mg/dL 70-110 Capillary blood glucose measurement by g lucometer (mass/volume) - 04/07/17 18:03 Capillary blood glucose measurement by glucometer (mas s/volume) 210 mg/dL 70-110 Capillary blood glucose measurement by g lucometer (mass/volume) - 04/07/17 20:12 Capillary blood glucose measurement by glucometer (mas s/volume) 245 mg/dL 70-110 Capillary blood glucose measurement by g lucometer (mass/volume) - 04/08/17 05:13 Capillary blood glucose measurement by glucometer (mas s/volume) 83 mg/dL 70-110 Capillary blood glucose measurement by g lucometer (mass/volume) - 04/08/17 11:31 Capillary blood glucose measurement by glucometer (mas s/volume) 175 mg/dL 70-110 Capillary blood glucose measurement by g lucometer (mass/volume) - 04/08/17 16:59 Capillary blood glucose measurement by glucometer (mas s/volume) 267 mg/dL 70-110 Capillary blood glucose measurement by g lucometer (mass/volume) - 04/08/17 20:56 Capillary blood glucose measurement by glucometer (mas s/volume) 156 mg/dL 70-110 Capillary blood glucose measurement by g lucometer (mass/volume) - 04/09/17 05:21 Capillary blood glucose measurement by glucometer (mas s/volume) 118 mg/dL 70-110 Capillary blood glucose measurement by g lucometer (mass/volume) - 04/09/17 11:15 Capillary blood glucose measurement by glucometer (mas s/volume) 137 mg/dL 70-110 Capillary blood glucose measurement by g lucometer (mass/volume) - 04/09/17 18:09 Capillary blood glucose measurement by glucometer (mas s/volume) 164 mg/dL 70-110 Capillary blood glucose measurement by g lucometer (mass/volume) - 04/09/17 21:01 Capillary blood glucose measurement by glucometer (mas s/volume) 390 mg/dL 70-110 Capillary blood glucose measurement by g lucometer (mass/volume) - 04/10/17 05:23 Capillary blood glucose measurement by glucometer (mas s/volume) 78 mg/dL 70-110 Capillary blood glucose measurement by g lucometer (mass/volume) - 04/10/17 11:13 Capillary blood glucose measurement by glucometer (mas s/volume) 270 mg/dL 70-110 Capillary blood glucose measurement by g lucometer (mass/volume) - 04/10/17 16:15 Capillary blood glucose measurement by glucometer (mas s/volume) 136 mg/dL 70-110 Capillary blood glucose measurement by g lucometer (mass/volume) - 04/10/17 21:16 Capillary blood glucose measurement by glucometer (mas s/volume) 340 mg/dL 70-110 Capillary blood glucose measurement by g lucometer (mass/volume) - 04/11/17 06:59 Capillary blood glucose measurement by glucometer (mas s/volume) 76 mg/dL 70-110 Capillary blood glucose measurement by g lucometer (mass/volume) - 04/11/17 11:21 Capillary blood glucose measurement by glucometer (mas s/volume) 159 mg/dL 70-110 Capillary blood glucose measurement by g lucometer (mass/volume) - 04/11/17 16:13 Capillary blood glucose measurement by glucometer (mas s/volume) 209 mg/dL 70-110 Capillary blood glucose measurement by g lucometer (mass/volume) - 04/11/17 20:53 Capillary blood glucose measurement by glucometer (mas s/volume) 278 mg/dL 70-110 Capillary blood glucose measurement by g lucometer (mass/volume) - 04/12/17 04:41 Capillary blood glucose measurement by glucometer (mas s/volume) 101 mg/dL 70-110 Capillary blood glucose measurement by g lucometer (mass/volume) - 04/12/17 11:20 Capillary blood glucose measurement by glucometer (mas s/volume) 132 mg/dL 70-110 LIPID PANEL - 07/28/17 10:38 CHOLESTEROL, TOTAL 200 mg/dL <200 HDL CHOLESTEROL 43 mg/dL >40 TRIGLYCERIDES 248 mg/dL <150 LDL-CHOLESTEROL 122 mg/dL (calc) NRG CHOL/HDLC RATIO 4.7 (calc) <5.0 NON HDL CHOLESTEROL 157 mg/dL (calc) <13 0 Complete blood count (CBC) with automate d white blood cell (WBC) differential - 09/08/18 02:30 Blood leukocytes automated count (number/volume) 10.4 10*3/uL 4.3-11.0 Blood erythrocytes automated count (number/volume) 4.97 10*6/uL 4.35-5.85 Venous blood hemoglobin measurement (mass/volume) 14.1 g/dL 13.3-17.7 Blood hematocrit (volume fraction) 40 % 40-54 Automated erythrocyte mean corpuscular volume 80 [ foz_us] 80-99 Automated erythrocyte mean corpuscular h emoglobin (mass per erythrocyte) 28 pg 25-34 Automated erythrocyte mean corpuscular h emoglobin concentration measurement (mass/volume) 35 g/dL 32-36 Automated erythrocyte distribution width ratio 19. 8 % 10.0- 14.5 Automated blood platelet count (count/volume) 206 10*3/uL 130-400 Automated blood platelet mean volume measurement 9.7 [foz_us] 7.4-10.4 Automated blood neutrophils/100 leukocytes 81 % 42-75 Automated blood lymphocytes/100 leukocytes 11 % 12-44 Blood monocytes/100 leukocytes 7 % 0-12 Automated blood eosinophils/100 leukocytes 1 % 0-10 Automated blood basophils/100 leukocytes 0 % 0-10 Blood neutrophils automated count (number/volume) 8.4 10*3 1.8-7.8 Blood lymphocytes automated count (number/volume) 1.1 10*3 1.0-4.0 Blood monocytes automated count (number/volume) 0. 8 10*3 0.0-1.0 Automated eosinophil count 0.1 10*3/uL 0 .0-0.3 Automated blood basophil count (count/volume) 0.0 10*3/uL 0.0-0.1 Capillary blood glucose measurement by g lucometer (mass/volume) - 09/08/18 02:31 Capillary blood glucose measurement by glucometer (mas s/volume) 130 mg/dL 70-110 Whole blood basic metabolic panel - 08/14 09/30 02:55 Serum or plasma sodium measurement (moles/volume) 138 mmol/L 135-145 Serum or plasma potassium measurement (moles/volume) 3.4 mmol/L 3.6-5.0 Serum or plasma chloride measurement (moles/volume) 97 mmol/L 98-107 Carbon dioxide 27 mmol/L 21-32 Serum or plasma anion gap determination (moles/volume) 14 mmol/L 5-14 Serum or plasma urea nitrogen measurement (mass/volume ) 15 mg/dL 7-18 Serum or plasma creatinine measurement (mass/volume) 4.80 mg/dL 0.60-1.30 Serum or plasma urea nitrogen/creatinine mass ratio 3 NRG Serum or plasma creatinine measurement w ith calculation of estimated glomerular filtration rate 16 NRG Serum or plasma glucose measurement (mass/volume) 111 mg/dL 70-105 Serum or plasma calcium measurement (mass/volume) 8.7 mg/dL 8.5-10.1 Capillary blood glucose measurement by g lucometer (mass/volume) - 09/08/18 03:39 Capillary blood glucose measurement by glucometer (mas s/volume) 112 mg/dL 70-110 Capillary blood glucose measurement by g lucometer (mass/volume) - 09/08/18 04:16 Capillary blood glucose measurement by glucometer (mas s/volume) 154 mg/dL 70-110 Capillary blood glucose measurement by g lucometer (mass/volume) - 03/19/19 19:57 Capillary blood glucose measurement by glucometer (mas s/volume) 101 mg/dL 70-110 Complete blood count (CBC) with automate d white blood cell (WBC) differential - 03/19/19 20:45 Blood leukocytes automated count (number/volume) 8.0 10*3/uL 4.3-11.0 Blood erythrocytes automated count (number/volume) 3.83 10*6/uL 4.35-5.85 Venous blood hemoglobin measurement (mass/volume) 10.8 g/dL 13.3-17.7 Blood hematocrit (volume fraction) 31 % 40-54 Automated erythrocyte mean corpuscular volume 80 [ foz_us] 80-99 Automated erythrocyte mean corpuscular h emoglobin (mass per erythrocyte) 28 pg 25-34 Automated erythrocyte mean corpuscular h emoglobin concentration measurement (mass/volume) 35 g/dL 32-36 Automated erythrocyte distribution width ratio 16. 7 % 10.0- 14.5 Automated blood platelet count (count/volume) 180 10*3/uL 130-400 Automated blood platelet mean volume measurement 9.4 [foz_us] 7.4-10.4 Automated blood neutrophils/100 leukocytes 72 % 42-75 Automated blood lymphocytes/100 leukocytes 17 % 12-44 Blood monocytes/100 leukocytes 9 % 0-12 Automated blood eosinophils/100 leukocytes 2 % 0-10 Automated blood basophils/100 leukocytes 0 % 0-10 Blood neutrophils automated count (number/volume) 5.8 10*3 1.8-7.8 Blood lymphocytes automated count (number/volume) 1.3 10*3 1.0-4.0 Blood monocytes automated count (number/volume) 0. 7 10*3 0.0-1.0 Automated eosinophil count 0.1 10*3/uL 0 .0-0.3 Automated blood basophil count (count/volume) 0.0 10*3/uL 0.0-0.1 Comprehensive metabolic panel - 03/19/19 20:45 Serum or plasma sodium measurement (moles/volume) 138 mmol/L 135-145 Serum or plasma potassium measurement (moles/volume) 5.0 mmol/L 3.6-5.0 Serum or plasma chloride measurement (moles/volume) 96 mmol/L 98-107 Carbon dioxide 25 mmol/L 21-32 Serum or plasma anion gap determination (moles/volume) 17 mmol/L 5-14 Serum or plasma urea nitrogen measurement (mass/volume ) 39 mg/dL 7-18 Serum or plasma creatinine measurement (mass/volume) 10.24 mg/dL 0.60-1.30 Serum or plasma urea nitrogen/creatinine mass ratio 4 NRG Serum or plasma creatinine measurement w ith calculation of estimated glomerular filtration rate 6 NRG Serum or plasma glucose measurement (mass/volume) 184 mg/dL 70-105 Serum or plasma calcium measurement (mass/volume) 8.9 mg/dL 8.5-10.1 Serum or plasma total bilirubin measurement (mass/volu me) 0.4 mg/dL 0.1-1.0 Serum or plasma alkaline phosphatase bro surement (enzymatic activity/volume) 146 U/L 40-136 Serum or plasma aspartate aminotransfera se measurement (enzymatic activity/volume) 16 U/L 5-34 Serum or plasma alanine aminotransferase measurement (enzymatic activity/volume) 11 U/L 0-55 Serum or plasma protein measurement (mass/volume) 7.6 g/dL 6.4-8.2 Serum or plasma albumin measurement (mass/volume) 4.6 g/dL 3.2-4.5 Capillary blood glucose measurement by g lucometer (mass/volume) - 03/19/19 21:06 Capillary blood glucose measurement by glucometer (mas s/volume) 219 mg/dL 70-110 Capillary blood glucose measurement by g lucometer (mass/volume) - 04/11/19 07:41 Capillary blood glucose measurement by glucometer (mas s/volume) 418 mg/dL 70-110 Capillary blood glucose measurement by g lucometer (mass/volume) - 04/11/19 08:40 Capillary blood glucose measurement by glucometer (mas s/volume) 293 mg/dL 70-110 Capillary blood glucose measurement by g lucometer (mass/volume) - 05/19/19 12:05 Capillary blood glucose measurement by glucometer (mas s/volume) 102 mg/dL 70-110 Encounters ACCT No. Visit Date/Time Discharge Status Pt. Type Provider Facility Loc./Unit Complaint [id number] 03/27/2014 11:38:00 03/27/2014 23:59: 59 CLS Outpatient NU POLLARD APRNA S [id number] 03/05/2014 16:08:00 03/05/2014 23:59: 59 CLS Outpatient MINNIE POLLARD APRNNDA S [id number] 10/24/2013 14:36:00 10/24/2013 23:59: 59 CLS Outpatient MINNIE POLLARD APRNNDA S [id number] 04/17/2013 09:43:00 04/17/2013 23:59: 59 CLS Outpatient MINNIE POLLARD APRNNDA S [id number] 04/06/2013 09:25:00 04/06/2013 23:59: 59 CLS Outpatient MINNIE POLLARD APRNNDA S [id number] 02/28/2013 09:49:00 02/28/2013 23:59: 59 CLS Outpatient LATRICE MILLER TERRY S [id number] 03/29/2019 15:00:00 03/29/2019 23:59:5 9 CLS Outpatient MINNIE POLLARD APRNNDA S [facility] [id number] 07/28/2017 09:20:00 Document Registration [id number] 05/19/2019 11:39:00 23:59:59 CLS Outpatient DYE YESSI ANTONIO [facility] ENDO GASTRIC POLYP/ANEMIA [id number] 05/17/2019 06:08:00 10:54:00 DIS Outpatient DYE YESSI ANTONIO [facility] PREOP COLONOSCOPY/EGD [id number] 04/11/2019 06:59:00 23:59:59 CLS Outpatient DYE YESSI ANTONIO [facility] ENDO ANEMIA/DIARRHEA/EPIGAST GRICEL ABD PAIN [id number] 04/10/2019 05:37:00 23:59:59 CLS Outpatient YESSI DYE DO [facility] PREOP COLONOSCOPY/EGD [id number] 03/19/2019 19:51:00 21:55:00 DIS Emergency SUNITHA BRAXTON TIRE RECAPPER Via [facility] ER LOW BLOOD SUGAR [id number] 10/28/2018 15:47:00 23:59:59 CLS Outpatient ALEXANDREA MAKI, ILYA Will [facility] RAD BACK AND SHOULD ER PAIN [id number] 10/07/2018 16:06:00 23:59:59 CLS Outpatient ILYA LECHUGA MD [facility] RAD CERVICAL SPINE X-RAY [id number] 09/08/2018 02:25:00 04:39:00 DIS Emergency JUNI MAKI, SHARMIN Cunha [facility] ER LOW BLOOD SUGAR [id number] 02/24/2018 13:17:00 23:59:59 CLS Outpatient ALICE POMPA APRN [facility] RAD SOB,COUGH [id number] 05/27/2017 12:50:00 018 14:33:00 DIS Outpatient ROULA GARCIA MD [facility] REHAB GENERALIZED WEAKNESS [id number] 04/06/2017 01:33:00 018 11:40:00 DIS Inpatient BERNADETTE MAKI, LOI E [facility] IRF ENCEPHALOPATHY [id number] 03/30/2017 19:41:00 018 00:59:00 DIS Emergency JUNI MAKI, SHARMIN Cunha [facility] ER SEIZURE [id number] 03/28/2017 14:06:00 018 21:08:00 DIS Emergency MASON MCCANN MD Via [facility] ER N/V/ELEV BS [id number] 06/28/2016 08:04:00 017 10:30:00 DIS Emergency VIKY WALDEN DO a [facility] ER LEG SWELLING [id number] 05/27/2016 13:52:00 017 23:59:59 CLS Outpatient VIKY MELÉNDEZ [facility] RAD CHRONIC KIDNEY DISEASE, ANEMIA,DIABETES [id number] 05/18/2015 17:16:00 016 21:03:00 DIS Emergency JUNI MAKI, SHARMIN Cunha [facility] ER LOW BLOOD SUGAR [id number] 04/27/2014 11:01:00 015 23:59:59 CLS Outpatient TERRY POLLARD [facility] RAD
== END | disposition home or self-care (01) ==
LOC: ENDO 11:39
PROVIDERS: ATTEND Surgery
DX: N18.6 End stage renal disease (principal); D63.1 Anemia in chronic kidney disease; K31.7 Polyp of stomach and duodenum; K25.9 Gastric ulcer, unspecified as acute or chronic, without hemorrhage or perforation; K62.1 Rectal polyp; Z99.2 Dependence on renal dialysis; I12.0 Hypertensive chronic kidney disease with stage 5 chronic kidney disease or end stage renal disease; I73.9 Peripheral vascular disease, unspecified; G40.909 Epilepsy, unspecified, not intractable, without status epilepticus; E11.40 Type 2 diabetes mellitus with diabetic neuropathy, unspecified; K21.9 Gastro-esophageal reflux disease without esophagitis; Z79.899 Other long term (current) drug therapy; Z79.4 Long term (current) use of insulin
CPT/HCPCS: 82962; 88305

== ENCOUNTER 2019-09-19 08:25 | Emergency (ER) | payer MEDICARE ==
[~2019-09-19] VITALS: Ht 167.7 cm; Wt 74.8 kg
[~2019-09-19 08:25] MED LIST changes: -HURRICAINE EXT TUBE (BENZOCAINE) ONE; -HURRICAINE EXT TUBE (BENZOCAINE) XX PRN; -LABETALOL HCL 20 MG/4 ML VIAL ONE; -LACTATED RINGERS 1,000 ML IV ONE; -LACTATED RINGERS 1,000 ML IV STA; -MIDAZOLAM 2 MG/2 ML (VERSED) VIAL ONE; -PROPOFOL INJECTION 50 ML IV ONE
[2019-09-19] MEDS ORDERED: D5 NS 1000 ML IV SOLUTION 1,000 ML IV ONE (08:28)
[2019-09-19 08:42] LABS: BASOPHILS % (AUTO) 0 % (0-10); EOSINOPHILS # (AUTO) 0.2 10^3/uL (0.0-0.3); EOSINOPHILS % (AUTO) 2 % (0-10); HEMATOCRIT 41 % (40-54); HEMOGLOBIN 14.8 G/DL (13.3-17.7); LYMPHOCYTES # (AUTO) 0.9 X 10^3 (1.0-4.0); LYMPHOCYTES % (AUTO) 13 % (12-44); MEAN CORPUSCULAR HEMOGLOBIN 29 PG (25-34); MEAN CORPUSCULAR HGB CONC 36 G/DL (32-36); MEAN CORPUSCULAR VOLUME 79 FL (80-99); MEAN PLATELET VOLUME 9.2 FL (7.4-10.4); MONOCYTES # (AUTO) 0.4 X 10^3 (0.0-1.0); MONOCYTES % (AUTO) 6 % (0-12); NEUTROPHILS # (AUTO) 5.6 X 10^3 (1.8-7.8); NEUTROPHILS % (AUTO) 79 % (42-75); PLATELET COUNT 170 10^3/uL (130-400); RED CELL DISTRIBUTION WIDTH 19.6 % (10.0-14.5); WHITE BLOOD COUNT 7.1 10^3/uL (4.3-11.0)
[2019-09-19 08:57] LABS: ALBUMIN 4.6 GM/DL (3.2-4.5); CHLORIDE 97 MMOL/L (98-107)
[2019-09-19 08:58] LABS: POTASSIUM 3.4 MMOL/L (3.6-5.0); SODIUM 143 MMOL/L (135-145)
[2019-09-19 08:59] LABS: CALCIUM 8.9 MG/DL (8.5-10.1)
[2019-09-19 09:00] LABS: GLUCOSE 79 MG/DL (70-105); TOTAL PROTEIN 8.6 GM/DL (6.4-8.2)
[2019-09-19 09:01] LABS: BILIRUBIN,URINE NEGATIVE (NEGATIVE); CLARITY,URINE CLEAR; COLOR,URINE YELLOW; GLUCOSE, URINE (UA) NEGATIVE (NEGATIVE); KETONES,URINE NEGATIVE (NEGATIVE); LEUKOCYTE ESTERASE ,URINE NEGATIVE (NEGATIVE); NITRITE,URINE NEGATIVE (NEGATIVE); PROTEIN,URINE 3+ (NEGATIVE)
[2019-09-19 09:01] LABS: CARBON DIOXIDE 32 MMOL/L (21-32)
[2019-09-19 09:02] LABS: BILIRUBIN,TOTAL 0.6 MG/DL (0.1-1.0)
[2019-09-19 09:03] LABS: ALKALINE PHOSPHATASE 195 U/L (40-136); CREATININE SERUM 7.62 MG/DL (0.60-1.30); GFR ESTIMATED 9
--- NOTE | 2019-09-19 09:03 | Diagnostic Imaging Report ---
HISTORY: Hypoglycemia. TECHNIQUE: Frontal view of the chest. COMPARISON: 03/19/2019. FINDINGS: The lung volumes are normal. No focal consolidation is seen. There is no pleural effusion or pneumothorax. The cardiac silhouette is stable in size. A left-sided dual-lumen catheter projects over the SVC. Additional leads overlie the chest. IMPRESSION: No acute pulmonary abnormality is seen. Dictated by: Dictated on workstation # [id number]
[2019-09-19 09:04] LABS: BUN/CREATININE RATIO 3
[2019-09-19 09:06] LABS: ALANINE AMINOTRANSFERASE 9 U/L (0-55); MAGNESIUM 2.6 MG/DL (1.6-2.4); PROTHROMBIN TIME PATIENT 13.4 SEC (12.2-14.7)
[2019-09-19 09:10] LABS: BACTERIA,URINE NEGATIVE /HPF; WBC,URINE RARE /HPF
--- NOTE | 2019-09-19 09:24 | ED General ---
General Chief Complaint: Glucose Problems Stated Complaint: HYPOGLYCEMIA Nursing Triage Note: ARRIVED BY EMS, FOUND UNRESPONSIVE BY AT HOME, BLOOD GLUCOSE UPON EMS ARRIVAL LOW, EMS GAVE 1 AMP D50, BILAT 18G AC IV STARTED BY EMS. PT ALERT ON ARRIVAL Nursing Sepsis Screen: No Definite Risk Source of Information: Patient (SOMEWHAT LIMITED HISTORIAN/LIMITED MEMORY), EMS, Old Records History of Present Illness Date Seen by Provider: Sep 19, 2019 Time Seen by Provider: 08:25 Initial Comments PT ARRIVES VIA EMS FROM HOME CALLED EMS FOR PT BEING UNRESPONSIVE ACCUCHECK WAS TOO LOW TO READ ON EMS ARRIVAL, AND PT WAS COLD AND DIAPHORETIC AND UNRESPONSIVE AT THE SCENE EMS GAVE PT 1 AMP OF D50 WITH IMPROVEMENT--PT IS NOW AWAKE AND ALERT, BUT STILL WITH SOME SLOW MENTATION--EMS REPORT REPEAT ACCUCHECK IS 92 ACCUCHECK IS 85 ON ARRIVAL TO ER 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 Kong" AND USES [facility] T[facility] Allergies and Home Medications Allergies Coded Allergies: No Known Drug Allergies (Unverified , 05/17/19) Home Medications Amlodipine Besylate 10 Mg Tablet, 10 MG PO DAILY, (Reported) Calcium Carbonate 300 Mg Tab.chew, 300 MG PO TID, (Reported) Carvedilol 25 Mg Tablet, 25 MG PO BID, (Reported) Hydralazine HCl 10 Mg Tablet, 10 MG PO TID, (Reported) Insulin Aspart 300 Units/3 Ml Solution, 7 UNITS SQ AC PRN for HYPERGLYCEMIA, (Reported) Insulin Detemir 100 Unit/1 Ml Insuln.pen, 10 UNIT SQ HS, (Reported) Pantoprazole Sodium [address], 40 MG PO DAILY Prescribed by: YESSI DYE on 05/19/19 1312 Torsemide 100 Mg Tablet, 100 MG PO Q48H, (Reported) Patient Home Medication List Home Medication List Reviewed: Yes Review of Systems Review of Systems Constitutional: see HPI, diaphoresis EENTM: no symptoms reported Respiratory: see HPI; No short of breath Cardiovascular: syncope Gastrointestinal: no symptoms reported Genitourinary: see HPI (STILL MAKES URINE) Musculoskeletal: no symptoms reported Skin: no symptoms reported Psychiatric/Neurological: See HPI Hematologic/Lymphatic: No Symptoms Reported Immunological/Allergic: no symptoms reported Past Ocxtnxz-Gjspon-Ilugik Hx Past Med/Social Hx: Reviewed and Corrections made Patient Social History Alcohol Use: Denies Use Recreational Drug Use: No Smoking Status: Never a Smoker 2nd Hand Smoke Exposure: No Recent Foreign Travel: No Contact w/Someone Who Travel: No Recent Infectious Disease Expo: No Recent Hopitalizations: No Physical Abuse: No Sexual Abuse: No Mistreated: No Fear: No Immunizations Up To Date Tetanus Booster (TDap): Unknown Date of Pneumonia Vaccine: Dec 19, 2018 Date of Influenza Vaccine: Feb 04, 2019 Seasonal Allergies Seasonal Allergies: No Past Medical History Surgeries: Yes (dialysis catheter placement x2--CURRENTLY CENTRAL LINE ON LEFT;EGD/COLONOSC) Dialysis Respiratory: Yes (ON VENT 2018 FOR DKA WITH PERSISTENT SEIZURES) Currently Using CPAP: No Currently Using BIPAP: No Cardiac: Yes (CHRONIC VENOUS INSUFFICIENCY) Hypertension, Peripheral Vascular Neurological: Yes (LAST SEIZURE 2018 WITH DKA) Neuropathy, Seizure Disorder, Stroke Sexually Transmitted Disease: No HIV/AIDS: No Genitourinary: Yes (DIALYSIS M-W-F) Renal Failure, Dialysis Gastrointestinal: Yes Gastroesophageal Reflux, Chronic Diarrhea Musculoskeletal: Yes (LEFT CHARCOT FOOT) Arthritis Endocrine: Yes (DKA REQUIRING INTUBATION 2018/WITH SEIZURES) Diabetes, Insulin dep HEENT: No Loss of Vision: Denies Hearing Impairment: Deaf Cancer: No Psychosocial: No Integumentary: No Blood Disorders: Yes (anemia) Adverse Reaction/Blood Tranf: No (N/A) Family Medical History Alcoholism 19 FATHER Alzheimer's disease 19 FATHER Arthritis 19 FATHER Asthma G8 BROTHER Cardiovascular disease 19 MOTHER Cataracts 19 MOTHER Diabetes mellitus 19 MOTHER Hypertension 19 MOTHER Hypertension Physical Exam Vital Signs Vital Signs - First Documented 09/19/19 08:25 Pulse 70 Resp 16 B/P (MAP) 190/107 (134) Pulse Ox 95 O2 Delivery Room Air Capillary Refill : Less Than 3 Seconds Height, Weight, BMI Height: 5'8.00" Weight: 169lbs. 0.0oz. 76.328965lc; 26.00 BMI Method:Estimated General Appearance: No Apparent Distress, WD/WN, Other (PT AWAKE, ALERT, ORIENTED, BUT SOMEWHAT SLOW MENTATION, VERY PLEASANT AND SMILING. ) HEENT: PERRL/EOMI, Moist Mucous Membranes Neck: Normal Inspection Respiratory: Normal Breath Sounds, No Accessory Muscle Use, No Respiratory Distress, Other (LEFT CHEST WITH CENTRAL LINE FOR DIALYSIS) Cardiovascular: Regular Rate, Rhythm, No Edema, No JVD, No Murmur, Normal Peripheral Pulses Gastrointestinal: Non Tender, Soft Extremity: Non Tender, No Pedal Edema, Other (LEFT CHARCOT FOOT; NO EDEMA TO LEGS, BUT HAVE CHRONIC STASIS CHANGES AND WOODY INDURATION BILATERALLY. 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 Norm as Tested, Other (MILDLY SLOW MENTATION) Skin: Normal Color (PT IS BLACK), Warm/Dry, Other (CLOTHING IS ONLY SLIGHTLY DAMP IN ARMPIT AREA AND A LITTLE ON BACK--NOT SATURATED) Procedures/Interventions Date of ETT Placement: Mar 30, 2017 Time of ETT Placement: 2053 Progress/Results/Core Measures Suspected Sepsis Recent Fever Within 48 Hours: No Infection Criteria Present: None New/Unexplained Altered Menta: No Sepsis Screen: No Definite Risk SIRS Temperature: Pulse: 70 Respiratory Rate: 16 Laboratory Tests 09/19/19 08:25: White Blood Count 7.1 Blood Pressure 190 /107 Mean: 134 Laboratory Tests 09/19/19 08:25: Creatinine 7.62H, INR Comment 1.0, Platelet Count 170, Total Bilirubin 0.6 Results/Orders Lab Results Laboratory Tests Test 09/19/19 08:25 09/19/19 08:55 Range/Units White Blood Count 7.1 4.3-11.0 10^3/uL Red Blood Count 5.18 4.35-5.85 10^6/uL Hemoglobin 14.8 13.3-17.7 G/DL Hematocrit 41 40-54 % Mean Corpuscular Volume 79 L 80-99 FL Mean Corpuscular Hemoglobin 29 25-34 PG Mean Corpuscular Hemoglobin Concent 36 32-36 G/DL Red Cell Distribution Width 19.6 H 10.0-14.5 % Platelet Count 170 130-400 10^3/uL Mean Platelet Volume 9.2 7.4-10.4 FL Neutrophils (%) (Auto) 79 H 42-75 % Lymphocytes (%) (Auto) 13 12-44 % Monocytes (%) (Auto) 6 0-12 % Eosinophils (%) (Auto) 2 0-10 % Basophils (%) (Auto) 0 0-10 % Neutrophils # (Auto) 5.6 1.8-7.8 X 10^3 Lymphocytes # (Auto) 0.9 L 1.0-4.0 X 10^3 Monocytes # (Auto) 0.4 0.0-1.0 X 10^3 Eosinophils # (Auto) 0.2 0.0-0.3 10^3/uL Basophils # (Auto) 0.0 0.0-0.1 10^3/uL Prothrombin Time 13.4 12.2-14.7 SEC INR Comment 1.0 0.8-1.4 Activated Partial Thromboplast Time 35 24-35 SEC Sodium Level 143 135-145 MMOL/L Potassium Level 3.4 L 3.6-5.0 MMOL/L Chloride Level 97 L 98-107 MMOL/L Carbon Dioxide Level 32 21-32 MMOL/L Anion Gap 14 5-14 MMOL/L Blood Urea Nitrogen 20 H 7-18 MG/DL Creatinine 7.62 H 0.60-1.30 MG/DL Estimat Glomerular Filtration Rate 9 BUN/Creatinine Ratio 3 Glucose Level 79 70-105 MG/DL Calcium Level 8.9 8.5-10.1 MG/DL Corrected Calcium 8.5-10.1 MG/DL Magnesium Level 2.6 H 1.6-2.4 MG/DL Total Bilirubin 0.6 0.1-1.0 MG/DL Aspartate Amino Transf (AST/SGOT) 17 5-34 U/L Alanine Aminotransferase (ALT/SGPT) 9 0-55 U/L Alkaline Phosphatase 195 H 40-136 U/L Total Protein 8.6 H 6.4-8.2 GM/DL Albumin 4.6 H 3.2-4.5 GM/DL Urine Color YELLOW Urine Clarity CLEAR Urine pH 8.0 5-9 Urine Specific [place] 1.020 1.016-1.022 Urine Protein 3+ H NEGATIVE Urine Glucose (UA) NEGATIVE NEGATIVE Urine Ketones NEGATIVE NEGATIVE Urine Nitrite NEGATIVE NEGATIVE Urine Bilirubin NEGATIVE NEGATIVE Urine Urobilinogen 0.2 < = 1.0 MG/DL Urine Leukocyte Esterase NEGATIVE NEGATIVE Urine RBC (Auto) TRACE-I NEGATIVE Urine RBC 2-5 H /HPF Urine WBC RARE /HPF Urine Squamous Epithelial Cells NONE /HPF Urine Crystals NONE /LPF Urine Bacteria NEGATIVE /HPF Urine Casts NONE /LPF Urine Mucus NEGATIVE /LPF Urine Culture Indicated NO My Orders Orders - VIKY WALDEN DO Ed Iv/Invasive Line Start (09/19/19 08:28) Ekg Tracing (09/19/19 08:28) Monitor-Rhythm Ecg Trace Only (09/19/19 08:28) Chest 1 View, Ap/Pa Only (09/19/19 08:28) Cbc With Automated Diff (09/19/19 08:28) Comprehensive Metabolic Panel (09/19/19 08:28) Magnesium (09/19/19 08:28) Protime With Inr (09/19/19 08:28) Partial Thromboplastin Time (09/19/19 08:28) Ua Culture If Indicated (09/19/19 08:28) Ed Iv/Invasive Line Start (09/19/19 08:28) Accucheck Stat ONCE (09/19/19 08:28) D5 Ns 1000 Ml Iv Solution (Dextrose 5%/0 (09/19/19 08:28) Accucheck Stat ONCE (09/19/19 09:18) Medications Given in ED Current Medications Medications Dose Ordered Sig/Aaron Route Start Time Stop Time Status Last Admin Dose Admin Dextrose/Sodium Chloride 1,000 ml @ 0 mls/hr Q0M ONCE IV 09/19/19 08:28 09/19/19 08:29 DC 09/19/19 08:40 1,000 MLS/HR Vital Signs/I&O 09/19/19 08:25 Pulse 70 Resp 16 B/P (MAP) 190/107 (134) Pulse Ox 95 O2 Delivery Room Air Capillary Refill : Less Than 3 Seconds Blood Pressure Mean: 134 Point of Care Testing Finger Stick Blood Glucose: 85 Progress Note : Progress Note NO DETERIORATION IN PT'S CONDITION DURING ER STAY ACCUCHECK 228 AT DISMISSAL ECG Initial ECG Impression Date: Sep 19, 2019 Initial ECG Impression Time: 08:35 Initial ECG Rate: 71 Initial ECG Rhythm: Normal Sinus Diagnostic Imaging Comments CXR--PER RADIOLOGIST REPORT AT 0930 FINDINGS: The lung volumes are normal. No focal consolidation is seen. There is no pleural effusion or pneumothorax. The cardiac silhouette is stable in size. A left-sided dual-lumen catheter projects over the SVC. Additional leads overlie the chest. IMPRESSION: No acute pulmonary abnormality is seen. Reviewed: Reviewed by Me Departure Impression Primary Impression: Hypoglycemia associated with diabetes Additional Impressions: ESRD (end stage renal disease) on dialysis Hypertension Disposition: HOME, SELF-CARE Condition: Improved Departure-Patient Inst. Referrals: [facility] (PCP/Family) Primary Care Physician Patient Instructions: Low Blood Sugar in People With Diabetes Add. Discharge Instructions: TAKE YOUR MEDICATIONS PRESCRIBED CONTINUE DIALYSIS SCHEDULED DO NOT SKIP MEALS AND FOLLOW DIABETIC DIET RETURN TO ER IF SYMPTOMS RETURN All discharge instructions reviewed with patient and/or family. Voiced understanding. VIKY WALDEN DO Sep 19, 2019 09:24
[2019-09-19 09:32] VITALS: BP 190/107
== END 2019-09-19 09:32 | disposition home or self-care (01) ==
LOC: EDUNIT# 08:26 → ER 08:27
DX: E11.649 Type 2 diabetes mellitus with hypoglycemia without coma (principal); E11.22 Type 2 diabetes mellitus with diabetic chronic kidney disease; I12.0 Hypertensive chronic kidney disease with stage 5 chronic kidney disease or end stage renal disease; N18.6 End stage renal disease; K21.9 Gastro-esophageal reflux disease without esophagitis; E11.40 Type 2 diabetes mellitus with diabetic neuropathy, unspecified; E11.10 Type 2 diabetes mellitus with ketoacidosis without coma; Z82.49 Family history of ischemic heart disease and other diseases of the circulatory system; Z99.2 Dependence on renal dialysis; Z86.73 Personal history of transient ischemic attack (TIA), and cerebral infarction without residual deficits; Z79.4 Long term (current) use of insulin
CPT/HCPCS: 36415; 71045; 80053; 81000; 82962; 83735; 85025; 85610; 85730; 93005; 93041

== ENCOUNTER 2019-11-23 15:40 | Emergency (ER) | payer MEDICARE ==
[~2019-11-23] VITALS: Ht 65 cm; Wt 77.0 kg
[2019-11-23] MEDS ORDERED: HYDROcodone/APAP 5 MG/325 MG (LORTAB) TAB PO ONE (16:00)
--- NOTE | 2019-11-23 16:01 | ED General ---
General Stated Complaint: LOWER BACK PAIN Source of Information: Patient Exam Limitations: No Limitations History of Present Illness Date Seen by Provider: Nov 23, 2019 Time Seen by Provider: 15:58 Initial Comments Very pleasant gentleman presents to ER with reports of midline low back pain with urinary frequency for a few days. He does use hemodialysis Wednesday for end-stage renal disease but he does also still produce urine. He reports nausea but no fevers and no vomiting. Low back pain is rated at 8/10. No trauma no fevers no chills pain does not radiate, no loss of control of bladder or bowel and no loss of sensation genitals. Timing/Duration: 1-2 Days Severity: Moderate Associated Systoms: No Fever/Chills; Nausea/Vomiting Allergies and Home Medications Allergies Coded Allergies: No Known Drug Allergies (Unverified , 05/17/19) Home Medications Amlodipine Besylate 10 Mg Tablet, 10 MG PO DAILY, (Reported) Calcium Carbonate 300 Mg Tab.chew, 300 MG PO TID, (Reported) Carvedilol 25 Mg Tablet, 25 MG PO BID, (Reported) Hydralazine HCl 10 Mg Tablet, 10 MG PO TID, (Reported) Insulin Aspart 300 Units/3 Ml Solution, 7 UNITS SQ AC PRN for HYPERGLYCEMIA, (Reported) Insulin Detemir 100 Unit/1 Ml Insuln.pen, 10 UNIT SQ HS, (Reported) Pantoprazole Sodium 40 Mg Granpkt.dr, 40 MG PO DAILY Prescribed by: YESSI DYE on 05/19/19 1312 Torsemide 100 Mg Tablet, 100 MG PO Q48H, (Reported) Patient Home Medication List Home Medication List Reviewed: Yes Review of Systems Review of Systems Constitutional: see HPI; No chills, No fever EENTM: see HPI Respiratory: no symptoms reported Cardiovascular: no symptoms reported Genitourinary: no symptoms reported Musculoskeletal: no symptoms reported Skin: no symptoms reported Psychiatric/Neurological: No Symptoms Reported Hematologic/Lymphatic: No Symptoms Reported Immunological/Allergic: no symptoms reported Past [place]-Vbnxye-Zgnpke Hx Patient Social History 2nd Hand Smoke Exposure: No Recent Foreign Travel: No Contact w/Someone Who Travel: No Recent Hopitalizations: No Immunizations Up To Date Tetanus Booster (TDap): Unknown Date of Pneumonia Vaccine: Dec 19, 2018 Date of Influenza Vaccine: Feb 04, 2019 Seasonal Allergies Seasonal Allergies: No Past Medical History Surgeries: Yes (dialysis catheter placement x2--CURRENTLY CENTRAL LINE ON LEFT;EGD/COLONOSC) Dialysis Respiratory: Yes (ON VENT 2018 FOR DKA WITH PERSISTENT SEIZURES) Currently Using CPAP: No Currently Using BIPAP: No Cardiac: Yes (CHRONIC VENOUS INSUFFICIENCY) Hypertension, Peripheral Vascular Neurological: Yes (LAST SEIZURE 2018 WITH DKA) Neuropathy, Seizure Disorder, Stroke Sexually Transmitted Disease: No HIV/AIDS: No Genitourinary: Yes (DIALYSIS M-W-F) Renal Failure, Dialysis Gastrointestinal: Yes Gastroesophageal Reflux, Chronic Diarrhea Musculoskeletal: Yes (LEFT CHARCOT FOOT) Arthritis Endocrine: Yes (DKA REQUIRING INTUBATION 2018/WITH SEIZURES) Diabetes, Insulin dep HEENT: No Loss of Vision: Denies Hearing Impairment: Deaf Cancer: No Psychosocial: No Integumentary: No Blood Disorders: Yes (anemia) Adverse Reaction/Blood Tranf: No (N/A) Family Medical History Alcoholism 19 FATHER Alzheimer's disease 19 FATHER Arthritis 19 FATHER Asthma G8 BROTHER Cardiovascular disease 19 MOTHER Cataracts 19 MOTHER Diabetes mellitus 19 MOTHER Hypertension 19 MOTHER Hypertension Physical Exam Vital Signs Vital Signs - First Documented 11/23/19 16:32 Temp 36.8 Pulse 79 B/P (MAP) 174/87 (116) Pulse Ox 95 O2 Delivery Room Air Capillary Refill : Height, Weight, BMI Height: 5'8.00" Weight: 169lbs. 0.0oz. 76.391222gp; 26.00 BMI Method:Estimated General Appearance: No Apparent Distress, WD/WN Eyes: Bilateral Eye Normal Inspection, Bilateral Eye PERRL, Bilateral Eye EOMI Respiratory: Lungs Clear, Normal Breath Sounds, No Accessory Muscle Use, No Respiratory Distress Gastrointestinal: Non Tender, Soft Extremity: Normal Capillary Refill, Normal Inspection Neurologic/Psychiatric: Alert, Oriented x3 Skin: Warm/Dry Procedures/Interventions Date of ETT Placement: Mar 30, 2017 Time of ETT Placement: 2053 Progress/Results/Core Measures Suspected Sepsis SIRS Temperature: Pulse: Respiratory Rate: Laboratory Tests 11/23/19 16:02: White Blood Count 6.0 Blood Pressure / Mean: Laboratory Tests 11/23/19 16:02: Creatinine 6.21H, Platelet Count 165 Results/Orders Lab Results Laboratory Tests Test 11/23/19 16:02 11/23/19 17:49 Range/Units White Blood Count 6.0 4.3-11.0 10^3/uL Red Blood Count 3.36 L 4.35-5.85 10^6/uL Hemoglobin 10.0 L 13.3-17.7 G/DL Hematocrit 29 L 40-54 % Mean Corpuscular Volume 85 80-99 FL Mean Corpuscular Hemoglobin 30 25-34 PG Mean Corpuscular Hemoglobin Concent 35 32-36 G/DL Red Cell Distribution Width 19.3 H 10.0-14.5 % Platelet Count 165 130-400 10^3/uL Mean Platelet Volume 8.6 7.4-10.4 FL Neutrophils (%) (Auto) 74 42-75 % Lymphocytes (%) (Auto) 15 12-44 % Monocytes (%) (Auto) 8 0-12 % Eosinophils (%) (Auto) 3 0-10 % Basophils (%) (Auto) 0 0-10 % Neutrophils # (Auto) 4.4 1.8-7.8 X 10^3 Lymphocytes # (Auto) 0.9 L 1.0-4.0 X 10^3 Monocytes # (Auto) 0.5 0.0-1.0 X 10^3 Eosinophils # (Auto) 0.2 0.0-0.3 10^3/uL Basophils # (Auto) 0.0 0.0-0.1 10^3/uL Sodium Level 139 135-145 MMOL/L Potassium Level 4.5 3.6-5.0 MMOL/L Chloride Level 97 L 98-107 MMOL/L Carbon Dioxide Level 30 21-32 MMOL/L Anion Gap 12 5-14 MMOL/L Blood Urea Nitrogen 18 7-18 MG/DL Creatinine 6.21 H 0.60-1.30 MG/DL Estimat Glomerular Filtration Rate 11 BUN/Creatinine Ratio 3 Glucose Level 159 H 70-105 MG/DL Calcium Level 8.0 L 8.5-10.1 MG/DL Urine Color YELLOW Urine Clarity CLEAR Urine pH 8.5 5-9 Urine Specific [place] 1.015 L 1.016-1.022 Urine Protein 3+ H NEGATIVE Urine Glucose (UA) TRACE H NEGATIVE Urine Ketones NEGATIVE NEGATIVE Urine Nitrite NEGATIVE NEGATIVE Urine Bilirubin NEGATIVE NEGATIVE Urine Urobilinogen 0.2 < = 1.0 MG/DL Urine Leukocyte Esterase NEGATIVE NEGATIVE Urine RBC (Auto) 1+ H NEGATIVE Urine RBC 2-5 H /HPF Urine WBC NONE /HPF Urine Squamous Epithelial Cells RARE /HPF Urine Crystals NONE /LPF Urine Bacteria TRACE /HPF Urine Casts NONE /LPF Urine Mucus NEGATIVE /LPF Urine Culture Indicated NO My Orders Orders - SUNITHA BRAXTON APRN Cbc With Automated Diff (11/23/19 15:56) Ua Culture If Indicated (11/23/19 15:56) Basic Metabolic Panel (11/23/19 15:56) Hydrocodone/Apap 5/325 Tablet (Lortab 5 (11/23/19 16:00) Orphenadrine Inj (Ed Only) (Norflex Inje (11/23/19 18:15) Ct Abd/Pelvis Wo(Kidney Stone) (11/23/19 18:08) Medications Given in ED Current Medications Medications Dose Ordered Sig/Aaron Route Start Time Stop Time Status Last Admin Dose Admin Acetaminophen/ Hydrocodone Bitart 1 tab ONCE ONCE PO 11/23/19 16:00 11/23/19 16:01 DC 11/23/19 17:19 1 TAB Orphenadrine Citrate 30 mg ONCE ONCE IM 11/23/19 18:15 11/23/19 18:16 DC 11/23/19 18:14 30 MG Vital Signs/I&O 11/23/19 16:32 Temp 36.8 Pulse 79 B/P (MAP) 174/87 (116) Pulse Ox 95 O2 Delivery Room Air Capillary Refill : Departure Communication (Admissions) no dyspnea or hypoxia. Speaks in full sentences, oxygen saturation normal, converses appropriately and is very pleasant. Impression Primary Impression: Back pain Qualified Codes: M54.5 - Low back pain Disposition: 01 HOME, SELF-CARE Condition: Stable Departure-Patient Inst. Decision time for Depature: 18:45 Referrals: [facility] [place] (PCP/Family) Primary Care Physician Patient Instructions: Low Back Pain (DC) Add. Discharge Instructions: 1. Medication as directed 2. Return to ER for any concerns or worsening symptoms 3. Follow-up with your doctor next week. SUNITHA BRAXTON APRN Nov 23, 2019 16:01
--- NOTE | 2019-11-23 16:04 | NUR ---
Note vilma in ED - 11/23/19 at 1607 by [id number] pt with IV NS infusing to US. pt given pain med and nausea med before going to US.
[2019-11-23 16:08] LABS: BASOPHILS % (AUTO) 0 % (0-10); EOSINOPHILS # (AUTO) 0.2 10^3/uL (0.0-0.3); EOSINOPHILS % (AUTO) 3 % (0-10); HEMATOCRIT 29 % (40-54); LYMPHOCYTES # (AUTO) 0.9 X 10^3 (1.0-4.0); LYMPHOCYTES % (AUTO) 15 % (12-44); MEAN CORPUSCULAR HEMOGLOBIN 30 PG (25-34); MEAN CORPUSCULAR HGB CONC 35 G/DL (32-36); MEAN CORPUSCULAR VOLUME 85 FL (80-99); MEAN PLATELET VOLUME 8.6 FL (7.4-10.4); MONOCYTES # (AUTO) 0.5 X 10^3 (0.0-1.0); MONOCYTES % (AUTO) 8 % (0-12); NEUTROPHILS # (AUTO) 4.4 X 10^3 (1.8-7.8); NEUTROPHILS % (AUTO) 74 % (42-75); PLATELET COUNT 165 10^3/uL (130-400)
[2019-11-23 16:18] LABS: POTASSIUM 4.5 MMOL/L (3.6-5.0)
[2019-11-23 16:23] LABS: CREATININE SERUM 6.21 MG/DL (0.60-1.30)
[2019-11-23 17:57] LABS: BILIRUBIN,URINE NEGATIVE (NEGATIVE); CLARITY,URINE CLEAR; COLOR,URINE YELLOW; GLUCOSE, URINE (UA) TRACE (NEGATIVE); KETONES,URINE NEGATIVE (NEGATIVE); LEUKOCYTE ESTERASE ,URINE NEGATIVE (NEGATIVE); NITRITE,URINE NEGATIVE (NEGATIVE); PH,URINE 8.5 (5-9); PROTEIN,URINE 3+ (NEGATIVE)
[2019-11-23 18:03] LABS: BACTERIA,URINE TRACE /HPF; SQUAMOUS EPITHELIAL CELL,UR RARE /HPF
[2019-11-23] MEDS ORDERED: ORPHENADRINE 60 MG/2 ML (NORFLEX) AMP (ED ONLY) IM ONE (18:15)
--- NOTE | 2019-11-23 18:41 | Diagnostic Imaging Report ---
PROCEDURE: CT urinary tract, rule out kidney stone. TECHNIQUE: Multiple contiguous axial images were obtained through the abdomen and pelvis without the use of intravenous contrast. Auto Exposure Controls were utilized during the CT exam to meet ALARA standards for radiation dose reduction. INDICATION: Low back pain. Left lower abdominal pain. Dialysis patient. COMPARISON: None. FINDINGS: Small bilateral pleural effusions and atelectasis in the lung bases. The liver, gallbladder, pancreas, spleen, adrenals and collecting systems are negative on this noncontrast exam. Diffuse bladder wall thickening versus underdistention. Diminutive bilateral kidneys. Normal appendix. No free intraperitoneal air or fluid. No lymphadenopathy. No evidence of bowel obstruction. Anasarca. Osseous structures are intact. IMPRESSION: 1. Evidence of fluid overload including small bilateral pleural effusions and anasarca. 2. No acute CT finding in the abdomen or pelvis on this noncontrast exam. Dictated by: Dictated on workstation # [id number]
[2019-11-23] MEDS ORDERED: OXYC1TAB87 PO (18:48)
[2019-11-23 18:56] VITALS: BP 171/108
== END 2019-11-23 17:50 | disposition home or self-care (01) ==
LOC: EDUNIT# 15:40 → ER 15:43
DX: M54.5 Low back pain (principal); E11.22 Type 2 diabetes mellitus with diabetic chronic kidney disease; I12.0 Hypertensive chronic kidney disease with stage 5 chronic kidney disease or end stage renal disease; N18.6 End stage renal disease; E11.40 Type 2 diabetes mellitus with diabetic neuropathy, unspecified; K21.9 Gastro-esophageal reflux disease without esophagitis; E11.10 Type 2 diabetes mellitus with ketoacidosis without coma; E11.51 Type 2 diabetes mellitus with diabetic peripheral angiopathy without gangrene; Z86.73 Personal history of transient ischemic attack (TIA), and cerebral infarction without residual deficits; Z99.2 Dependence on renal dialysis; Z82.49 Family history of ischemic heart disease and other diseases of the circulatory system
CPT/HCPCS: 36415; 74176; 80048; 81000; 85025

== ENCOUNTER 2020-07-07 15:19 | Emergency (ER) | payer MEDICARE, OTHER ==
[~2020-07-07] VITALS: Ht 167.7 cm; Wt 72.7 kg
[~2020-07-07 15:19] MED LIST changes: +AMLO-251 PO; -AMLO10TA7 PO; +OXYC1TAB87 PO
[2020-07-07] MEDS ORDERED: ONDANSETRON 4 MG/2 ML (SDV) Z0FRAN IVP ONE (15:45)
--- NOTE | 2020-07-07 15:48 | ED Abdominal Pain ---
General Chief Complaint: Abdominal/GI Problems Stated Complaint: VOMITING Nursing Triage Note: AMB TO ROOM REPORTS IS A DIALYSIS PATIENT LAST DIALYSIS WAS WEDNESDAY. TODAY HAD NOT FELT WELL WITH NAUSEA NO PAIN . Sepsis Screen: No Definite Risk Source of Information: Patient Exam Limitations: No Limitations History of Present Illness Date Seen by Provider: Jul 07, 2020 Time Seen by Provider: 15:40 Initial Comments Patient is a 54-year-old male who presents to the emergency room with a chief complaint of nausea today. Patient states that he woke up with nausea and thought that it would get better throughout the day but it has not. Patient has a history of end-stage renal disease on hemodialysis. He dialyzes on Wednesdays and Fridays. He states that he completed dialysis last Wednesday with no complications. Patient denies abdominal pain. He does have a left sided HemoSplit catheter in the left chest. He also has a maturing left AV fistula. Patient denies any recent fevers, chills, cough or congestion. No Covid concerns. No flu concerns. He is a diabetic. States that his sugars have been normal. Patient does still make small amounts of urine. No issues with that. Patient states that he does occasionally get nausea but it never last quite as long as it has today. All other review of systems reviewed and negative except as stated above. Timing/Duration: 4-6 Hours Severity/Quality: Moderate Associated Symptoms: Nausea/Vomiting (Nausea without vomiting) Allergies and Home Medications Allergies Coded Allergies: No Known Drug Allergies (Unverified , 05/17/19) Home Medications Amlodipine Besylate 10 Mg Tablet, 10 MG PO DAILY, (Reported) Calcium Carbonate 300 Mg Tab.chew, 300 MG PO TID, (Reported) Carvedilol 25 Mg Tablet, 25 MG PO BID, (Reported) Hydralazine HCl 10 Mg Tablet, 10 MG PO TID, (Reported) Insulin Aspart 300 Units/3 Ml Solution, 7 UNITS SQ AC PRN for HYPERGLYCEMIA, (Reported) Insulin Detemir 100 Unit/1 Ml Insuln.pen, 10 UNIT SQ HS, (Reported) Oxycodone HCl/Acetaminophen 1 Each Tablet, 1 TAB PO Q4H Prescribed by: SUNITHA BRAXTON on 11/23/19 184 Pantoprazole Sodium 40 Mg Granpkt.dr, 40 MG PO DAILY Prescribed by: YESSI DYE on 05/19/19 1312 Torsemide 100 Mg Tablet, 100 MG PO Q48H, (Reported) Patient Home Medication List Home Medication List Reviewed: Yes Review of Systems Review of Systems Constitutional: see HPI EENTM: No Symptoms Reported Respiratory: No Symptoms Reported Cardiovascular: No Symptoms Reported Gastrointestinal: Nausea Genitourinary: No Symptoms Reported Musculoskeletal: no symptoms reported Skin: no symptoms reported Psychiatric/Neurological: No Symptoms Reported All Other Systems Reviewed Negative Unless Noted: Yes Past Alqfdou-Xitwci-Hywdwv Hx Patient Social History Alcohol Use: Denies Use Smoking Status: Never a Smoker 2nd Hand Smoke Exposure: No Recent Infectious Disease Expo: No Recent Hopitalizations: No Immunizations Up To Date Tetanus Booster (TDap): Unknown Date of Pneumonia Vaccine: Dec 19, 2018 Date of Influenza Vaccine: Feb 04, 2019 Seasonal Allergies Seasonal Allergies: No Past Medical History Surgeries: Yes (dialysis catheter placement x2--CURRENTLY CENTRAL LINE ON LEFT;EGD/COLONOSC) Dialysis Respiratory: Yes (ON VENT 2018 FOR DKA WITH PERSISTENT SEIZURES) Currently Using CPAP: No Currently Using BIPAP: No Cardiac: Yes (CHRONIC VENOUS INSUFFICIENCY) Hypertension, Peripheral Vascular Neurological: Yes (LAST SEIZURE 2018 WITH DKA) Neuropathy, Seizure Disorder, Stroke Sexually Transmitted Disease: No HIV/AIDS: No Genitourinary: Yes (DIALYSIS M-W-F) Renal Failure, Dialysis Gastrointestinal: Yes Gastroesophageal Reflux, Chronic Diarrhea Musculoskeletal: Yes (LEFT CHARCOT FOOT) Arthritis Endocrine: Yes (DKA REQUIRING INTUBATION 2018/WITH SEIZURES) Diabetes, Insulin dep HEENT: No Loss of Vision: Denies Hearing Impairment: Deaf Cancer: No Psychosocial: No Integumentary: No Blood Disorders: Yes (anemia) Adverse Reaction/Blood Tranf: No (N/A) Family Medical History Alcoholism 19 FATHER Alzheimer's disease 19 FATHER Arthritis 19 FATHER Asthma G8 BROTHER Cardiovascular disease 19 MOTHER Cataracts 19 MOTHER Diabetes mellitus 19 MOTHER Hypertension 19 MOTHER Hypertension Physical Exam Vital Signs Vital Signs - First Documented 07/07/20 15:32 Temp 36.7 Pulse 76 Resp 18 B/P (MAP) 158/76 (103) Pulse Ox 99 O2 Delivery Room Air Capillary Refill : Less Than 3 Seconds Height/Weight/BMI Height: 5'8.00" Weight: 169lbs. 0.0oz. [id number]; 25.00 BMI Method:Estimated General Appearance: WD/WN, no apparent distress HEENT: PERRL/EOMI Neck: full range of motion Respiratory: lungs clear, normal breath sounds, no respiratory distress, no accessory muscle use Cardiovascular: regular rate, rhythm, other (thrill palpable to the left AV fistula site) Gastrointestinal: normal bowel sounds, non tender, soft, no organomegaly Extremities: non-tender, normal inspection, no pedal edema Neurologic/Psychiatric: alert, normal mood/affect, oriented x 3 Skin: normal color, warm/dry Procedures/Interventions Date of ETT Placement: Mar 30, 2017 Time of ETT Placement: 2053 Progress/Results/Core Measures Results/Orders Lab Results Laboratory Tests Test 07/07/20 15:47 Range/Units White Blood Count 6.2 4.3-11.0 10^3/uL Red Blood Count 3.39 L 4.30-5.52 10^6/uL Hemoglobin 10.1 L 13.3-17.7 g/dL Hematocrit 29 L 40-54 % Mean Corpuscular Volume 85 80-99 fL Mean Corpuscular Hemoglobin 30 25-34 pg Mean Corpuscular Hemoglobin Concent 35 32-36 g/dL Red Cell Distribution Width 17.1 H 10.0-14.5 % Platelet Count 216 130-400 10^3/uL Mean Platelet Volume 9.2 9.0-12.2 fL Immature Granulocyte % (Auto) 0 % Neutrophils (%) (Auto) 65 42-75 % Lymphocytes (%) (Auto) 20 12-44 % Monocytes (%) (Auto) 13 H 0-12 % Eosinophils (%) (Auto) 2 0-10 % Basophils (%) (Auto) 0 0-10 % Neutrophils # (Auto) 4.0 1.8-7.8 10^3/uL Lymphocytes # (Auto) 1.2 1.0-4.0 10^3/uL Monocytes # (Auto) 0.8 0.0-1.0 10^3/uL Eosinophils # (Auto) 0.1 0.0-0.3 10^3/uL Basophils # (Auto) 0.0 0.0-0.1 10^3/uL Immature Granulocyte # (Auto) 0.0 0.0-0.1 10^3/uL Sodium Level 135 135-145 MMOL/L Potassium Level 3.8 3.6-5.0 MMOL/L Chloride Level 93 L 98-107 MMOL/L Carbon Dioxide Level 29 21-32 MMOL/L Anion Gap 13 5-14 MMOL/L Blood Urea Nitrogen 25 H 7-18 MG/DL Creatinine 11.02 H 0.60-1.30 MG/DL Estimat Glomerular Filtration Rate 6 BUN/Creatinine Ratio 2 Glucose Level 213 H 70-105 MG/DL Calcium Level 8.9 8.5-10.1 MG/DL Corrected Calcium 8.8 8.5-10.1 MG/DL Total Bilirubin 0.5 0.1-1.0 MG/DL Aspartate Amino Transf (AST/SGOT) 17 5-34 U/L Alanine Aminotransferase (ALT/SGPT) < 6 0-55 U/L Alkaline Phosphatase 105 40-136 U/L Total Protein 7.4 6.4-8.2 GM/DL Albumin 4.1 3.2-4.5 GM/DL My Orders Orders - ANTONIA CALLAWAY MD Cbc With Automated Diff (07/07/20 15:38) Comprehensive Metabolic Panel (07/07/20 15:38) Ed Iv/Invasive Line Start (07/07/20 15:38) Ondansetron Injection (Zofran Injectio (07/07/20 15:45) Medications Given in ED Current Medications Medications Dose Ordered Sig/Aaron Route Start Time Stop Time Status Last Admin Dose Admin Ondansetron HCl 8 mg ONCE ONCE IVP 07/07/20 15:45 07/07/20 15:46 DC 07/07/20 15:50 8 MG Vital Signs/I&O 07/07/20 15:32 Temp 36.7 Pulse 76 Resp 18 B/P (MAP) 158/76 (103) Pulse Ox 99 O2 Delivery Room Air Blood Pressure Mean: 103 Progress Progress Note : Time: 16:18 Progress Note Patient feels better after IV Zofran. Labs reviewed, CBC is unremarkable. Ch emistry shows a mildly increased blood sugar at 212. His renal function is as to be expected. Patient has no elevations in potassium or liver functions. His vital signs are stable. He is comfortable with discharge. We will send him home with a prescription for Zofran for home use. All questions were sought and answered. Patient stable for discharge. Departure Impression Primary Impression: Nausea alone Disposition: HOME, SELF-CARE Condition: Stable Departure-Patient Inst. Decision time for Depature: 04:18 Referrals: [facility] (PCP/Family) Primary Care Physician Patient Instructions: Nausea and Vomiting, Adult (DC) Add. Discharge Instructions: Drink enough fluids to stay well-hydrated but do not overdo it secondary to your dialysis. I have given you a prescription for Zofran, these are dissolvable tablets that you can take every 8 hours as needed for nausea. Return to the emergency room if you have any return of nausea especially with abdominal pain, fever, diarrhea or any other emergent concerning symptoms. Scripts Ondansetron (Ondansetron Odt) 4 Mg Tab.rapdis 4 MG PO Q8H, #20 TAB Prov: ANTONIA CALLAWAY MD 07/07/20 ANTONIA CALLAWAY MD Jul 07, 2020 15:48
[2020-07-07 16:02] LABS: BASOPHILS % (AUTO) 0 % (0-10); EOSINOPHILS # (AUTO) 0.1 10^3/uL (0.0-0.3); EOSINOPHILS % (AUTO) 2 % (0-10); HEMATOCRIT 29 % (40-54); HEMOGLOBIN 10.1 g/dL (13.3-17.7); LYMPHOCYTES # (AUTO) 1.2 10^3/uL (1.0-4.0); LYMPHOCYTES % (AUTO) 20 % (12-44); MEAN CORPUSCULAR HEMOGLOBIN 30 pg (25-34); MEAN CORPUSCULAR HGB CONC 35 g/dL (32-36); MEAN CORPUSCULAR VOLUME 85 fL (80-99); MEAN PLATELET VOLUME 9.2 fL (9.0-12.2); MONOCYTES # (AUTO) 0.8 10^3/uL (0.0-1.0); MONOCYTES % (AUTO) 13 % (0-12); NEUTROPHILS % (AUTO) 65 % (42-75); PLATELET COUNT 216 10^3/uL (130-400); WHITE BLOOD COUNT 6.2 10^3/uL (4.3-11.0)
[2020-07-07 16:13] LABS: ALANINE AMINOTRANSFERASE < 6 U/L (0-55); ALBUMIN 4.1 GM/DL (3.2-4.5); ALKALINE PHOSPHATASE 105 U/L (40-136); BILIRUBIN,TOTAL 0.5 MG/DL (0.1-1.0); BUN/CREATININE RATIO 2; CALCIUM 8.9 MG/DL (8.5-10.1); CARBON DIOXIDE 29 MMOL/L (21-32); CHLORIDE 93 MMOL/L (98-107); CREATININE SERUM 11.02 MG/DL (0.60-1.30); GFR ESTIMATED 6; GLUCOSE 213 MG/DL (70-105); POTASSIUM 3.8 MMOL/L (3.6-5.0); SODIUM 135 MMOL/L (135-145); TOTAL PROTEIN 7.4 GM/DL (6.4-8.2)
[2020-07-07 16:20] VITALS: BP 155/75
[2020-07-07] MEDS ORDERED: ONDA4TAB11 PO (16:24)
== END 2020-07-07 16:20 | disposition home or self-care (01) ==
LOC: EDUNIT# 15:19 → ER 15:21
DX: R11.0 Nausea (principal); I10 Essential (primary) hypertension; K21.9 Gastro-esophageal reflux disease without esophagitis; E11.9 Type 2 diabetes mellitus without complications; Z86.73 Personal history of transient ischemic attack (TIA), and cerebral infarction without residual deficits; Z79.4 Long term (current) use of insulin
CPT/HCPCS: 36415; 80053; 85025

== ENCOUNTER → 2020-07-25 | Outpatient (CLI) | payer MEDICARE, OTHER ==
[~2020-07-25] MED LIST changes: +ONDA4TAB11 PO
== END ==
LOC: CARD 12:27
PROVIDERS: ATTEND Pediatrics
DX: R01.1 Cardiac murmur, unspecified (principal); I34.0 Nonrheumatic mitral (valve) insufficiency
CPT/HCPCS: 93306

== ENCOUNTER 2021-05-02 05:27 | Outpatient (RCR) | payer MEDICARE, OTHER ==
[~2021-05-02] VITALS: Ht 167.6 cm; Wt 81.4 kg
== END 2021-05-02 10:00 | disposition home or self-care (01) ==
LOC: PREOP 05:27
PROVIDERS: ATTEND Surgery
DX: Z01.812 Encounter for preprocedural laboratory examination (principal); D64.9 Anemia, unspecified; K92.1 Melena; Z20.822 Contact with and (suspected) exposure to COVID-19
CPT/HCPCS: 87635

== ENCOUNTER 2021-05-06 11:37 | Day surgery (SDC) | payer MEDICARE, OTHER ==
[~2021-05-06] VITALS: Ht 167 cm; Wt 81.4 kg
[2021-05-06] MEDS ORDERED: LACTATED RINGERS 1,000 ML IV STA (11:46)
[2021-05-06] MEDS ORDERED: LACTATED RINGERS 1,000 ML IV ONE (11:48)
[2021-05-06 12:00] VITALS: BP 163/76
[2021-05-06] MEDS ORDERED: HURRICAINE EXT TUBE (BENZOCAINE) XX PRN (12:00)
--- NOTE | 2021-05-06 12:31 | Progress Note-Pre Operative ---
Pre-Operative Progress Note H&P Reviewed The H&P was reviewed, patient examined and no changes noted. Date Seen by Provider: May 06, 2021 Time Seen by Provider: 12:31 Date H&P Reviewed: May 06, 2021 Time H&P Reviewed: 12:31 Pre-Operative Diagnosis: anemia, melena YESSI DYE DO May 06, 2021 12:31
[2021-05-06] MEDS ORDERED: MIDAZOLAM 2 MG/2 ML (VERSED) VIAL ONE (14:07)
[2021-05-06] MEDS ORDERED: PROPOFOL INJECTION 50 ML IV ONE (14:08)
--- NOTE | 2021-05-06 14:19 | Anesthesia-General Post-Op ---
MAC Patient Condition Mental Status/LOC: Same as Preop Cardiovascular: Satisfactory Nausea/Vomiting: Absent Respiratory: Satisfactory Pain: Controlled Complications: Absent Post Op Complications Complications None Follow Up Care/Instructions Patient Instructions None needed. Anesthesiology Discharge Order Discharge Order Patient is doing well, no complaints, stable vital signs, no apparent adverse anesthesia problems. No complications reported per nursing. KARIN MCMAHAN CRNA May 06, 2021 14:19
[2021-05-06 14:35] VITALS: BP 119/58
[2021-05-06 14:40] VITALS: BP 118/56
--- NOTE | 2021-05-06 14:42 | Discharge Inst-Simple/Standard ---
Discharge Inst-Standard Patient Instructions/Follow Up Plan of Care/Instructions/FU: 1 bottle of mag citrate now and one bottle of mac citrate this evening. Clear liquids only tonight. Nothing to drink after midnight. Plan egd colonoscopy in am. Activity as Tolerated: Yes Discharge Diet: Liquid Diet YESSI DYE DO May 06, 2021 14:42
--- NOTE | 2021-05-06 14:44 | Progress Note-Post Operative ---
Post-Operative Progess Note Surgeon (s)/Tripper (s) Surgeon YESSI DYE DO Tripper: na Pre-Operative Diagnosis anemia, melena Post-Operative Diagnosis gastric polyp, gastric contents, poor prep Procedure & Operative Findings Date of Procedure 05/06/21 Procedure Performed/Findings egd and flex sig Anesthesia Type per travel agent Estimated Blood Loss Estimated blood loss (mL): none Specimens/Packing Specimens Removed na YESSI DYE DO May 06, 2021 14:44
[2021-05-06 15:05] VITALS: BP 153/73
[2021-05-06 15:55] VITALS: BP 153/73
--- NOTE | 2021-05-06 19:26 | OPERATIVE REPORT ---
DATE OF SERVICE: 05/06/2021 PREOPERATIVE DIAGNOSES: Anemia, melena. POSTOPERATIVE DIAGNOSES: Gastric poly, gastric contents, poor prep. PROCEDURE: EGD and flexible sigmoidoscopy. SURGEON: Yessi Padilla DO ANESTHESIA: Per RAIL OPERATOR. ESTIMATED BLOOD LOSS: None. COMPLICATIONS: None. INDICATIONS: The patient is a 55-year-old male with anemia and melena. He has end-stage renal disease requiring dialysis. He understands risks and benefits of procedure and wishes to proceed. Consent was signed in the chart. DESCRIPTION OF PROCEDURE: The patient was taken to the endoscopy suite, placed in left lateral recumbent position. Timeout was performed. Scope was inserted in mouth, down the esophagus, stomach and into the duodenum without difficulty. No polyps, masses or ulcerations within the duodenum. Scope was slowly retracted back into the stomach where also had a large amount of food contents or gastric contents. Lots of irrigation and suction was used, but unable to get it to completely evacuate. A gastric polyp was noted in the antrum. Slight erythema around it. No active bleeding. Again, lots of irrigation was further used to irrigate and try to suction out the gastric contents, but unable to do so. Scope was retroflexed noting no other pathology. Scope was returned to its normal position, slowly withdrawn to distal esophagus, which had normal appearance. No polyps, masses or ulcerations. Scope was slowly retracted back until completely removed. Digital rectal exam was performed. No palpable polyps, masses or ulcerations. Scope was inserted in the rectum and started encountering some stool. Scope was continued to advance through the rectum into the sigmoid colon, which then encountered a significant amount of stool and unable to visualize. Lots of irrigation and suction used with two solid stool and could not get past it. Scope was then slowly retracted back. No polyps, masses or ulcerations within the sigmoid portion visualized and also in the rectum. Scope was inserted and retracted a couple of more times, noting no other pathology. Scope was slowly retracted back until completely removed. The patient tolerated the procedure well without any complications. RECOMMENDATIONS: The patient to continue with prep one more day and repeat EGD and colonoscopy tomorrow. If not, would recommend a 2-day prep for further evaluation. CC: [facility] - requested, unable to deliver. Job ID: [id number] DocumentID: [id number] Dictated Date: 05/06/2021 16:59:01 Head Cd Reactor Operator Date: 05/06/2021 19:25:58 Dictated By: YESSI PADILLA DO
== END 2021-05-06 15:55 | disposition home or self-care (01) ==
LOC: ENDO 11:37
PROVIDERS: ATTEND Surgery
DX: K31.7 Polyp of stomach and duodenum (principal); D64.9 Anemia, unspecified; K92.1 Melena; N18.6 End stage renal disease; Z99.2 Dependence on renal dialysis

== ENCOUNTER 2021-05-13 07:50 | Outpatient (CLI) | payer MEDICARE, OTHER ==
[2021-05-13 08:15] VITALS: BP 134/93
== END 2021-05-13 08:35 | disposition home or self-care (01) ==
LOC: SDC 07:50
PROVIDERS: ATTEND Pediatrics
DX: D64.9 Anemia, unspecified (principal)
CPT/HCPCS: 36415; 85014; 85018; 86850; 86900; 86901

== ENCOUNTER 2021-06-02 05:48 | Outpatient (CLI) | payer MEDICARE, OTHER ==
[~2021-06-02] VITALS: Ht 167.6 cm; Wt 81.4 kg
[2021-06-02] MEDS ORDERED: SERT-413 PO (11:29)
== END 2021-06-02 11:57 | disposition home or self-care (01) ==
LOC: PREOP 05:48 → EDSTATUS 12:15
PROVIDERS: ATTEND Surgery
DX: Z01.818 Encounter for other preprocedural examination (principal)

== ENCOUNTER 2021-06-10 08:20 | Day surgery (SDC) | payer MEDICARE, OTHER ==
[~2021-06-10] VITALS: Ht 167 cm; Wt 81.4 kg
[~2021-06-10 08:20] MED LIST changes: +SERT-413 PO
[2021-06-10] MEDS ORDERED: LACTATED RINGERS 1,000 ML IV ONE (08:24)
[2021-06-10] MEDS ORDERED: LACTATED RINGERS 1,000 ML IV STA (08:26)
[2021-06-10] MEDS ORDERED: HURRICAINE EXT TUBE (BENZOCAINE) XX PRN (08:30)
[2021-06-10] MEDS ORDERED: PROMETHAZINE INJ 25 MG/ML (PHENERGAN) AMP ONE (08:40)
[2021-06-10] MEDS ORDERED: PROMETHAZINE INJ 25 MG/ML (PHENERGAN) AMP IVP ONE (08:45)
[2021-06-10 08:50] VITALS: BP 162/72
[2021-06-10] MEDS ORDERED: proPOfol 200 MG/20 ML (DIPRIVAN) VIAL IV ONE (09:13)
[2021-06-10] MEDS ORDERED: MIDAZOLAM 2 MG/2 ML (VERSED) VIAL ONE (09:13)
--- NOTE | 2021-06-10 09:15 | Progress Note-Pre Operative ---
Pre-Operative Progress Note H&P Reviewed The H&P was reviewed, patient examined and no changes noted. Date Seen by Provider: Jun 10, 2021 Time Seen by Provider: 09:15 Date H&P Reviewed: Jun 10, 2021 Time H&P Reviewed: 09:15 Pre-Operative Diagnosis: melena, iron def anemia YESSI DYE DO Jun 10, 2021 09:15
--- NOTE | 2021-06-10 09:43 | Progress Note-Post Operative ---
Post-Operative Progess Note Surgeon (s)/Stamping Press Operator (s) Surgeon YESSI DYE DO Stamping Press Operator: na Pre-Operative Diagnosis melena, iron def anemia Post-Operative Diagnosis gastric polyp, poor colon prep Procedure & Operative Findings Date of Procedure 06/10/21 Procedure Performed/Findings egd c snare polypectomy, flex sig Anesthesia Type per financial aid advisor Estimated Blood Loss Estimated blood loss (mL): none Specimens/Packing Specimens Removed antral polyp YESSI DYE DO Jun 10, 2021 09:43
[2021-06-10] MEDS ORDERED: PROPOFOL INJECTION 50 ML IV ONE (09:44)
--- NOTE | 2021-06-10 09:46 | Discharge Inst-Simple/Standard ---
Discharge Inst-Standard Patient Instructions/Follow Up Plan of Care/Instructions/FU: 2 weeks Valerie Activity as Tolerated: Yes Discharge Diet: Regular Diet (high fiber) YESSI DYE DO Jun 10, 2021 09:46
[2021-06-10 09:48] VITALS: BP 126/61
[2021-06-10 09:53] VITALS: BP 128/60
[2021-06-10 09:58] VITALS: BP 144/62
[2021-06-10 10:00] VITALS: BP 144/62
[2021-06-10 11:21] VITALS: BP 155/70
--- NOTE | 2021-06-10 13:22 | Anesthesia-General Post-Op ---
MAC Patient Condition Mental Status/LOC: Same as Preop Cardiovascular: Satisfactory Nausea/Vomiting: Absent Respiratory: Satisfactory Pain: Controlled Complications: Absent Post Op Complications Complications None Follow Up Care/Instructions Patient Instructions None needed. Anesthesiology Discharge Order Discharge Order Patient is doing well, no complaints, stable vital signs, no apparent adverse anesthesia problems. No complications reported per nursing. HAYES WHEELER CRNA Jun 10, 2021 13:22
--- NOTE | 2021-06-10 14:32 | OPERATIVE REPORT ---
DATE OF SERVICE: 06/10/2021 PREOPERATIVE DIAGNOSES: Melena and iron deficiency anemia. POSTOPERATIVE DIAGNOSES: Gastric polyp, poor colon prep. PROCEDURE: EGD with snare polypectomy and flexible sigmoidoscopy. SURGEON: Yessi Padilla DO ANESTHESIA: Per [employer]. ESTIMATED BLOOD LOSS: None. COMPLICATIONS: None. SPECIMENS: Antral polyp. INDICATIONS: The patient is a 55-year-old male with end-stage renal disease on dialysis. He had iron deficiency anemia, melena. He understands risks and benefits of procedure and wishes to proceed. Consent was signed in the chart. The patient also had previous poor prep and also a lot of substance food particulate into the stomach to visualize. We discussed procedure, which he understands and wishes to repeat. DESCRIPTION OF PROCEDURE: The patient was taken to the endoscopy suite, placed in left lateral recumbent position. Timeout was performed. Scope was inserted in the mouth, down the esophagus, stomach and into the duodenum without difficulty. No polyps, masses or ulcerations within the duodenum. Scope was slowly retracted back to stomach where it was further insufflated. In the antrum, larger erythematous polyp present. Snare polypectomy was performed. Scope was retroflexed noting no other pathology. Scope was returned to its normal position. Polyp was obtained for specimen by suctioning. Scope was slowly retracted back until completely removed, noting no other pathology. Digital rectal exam was performed. No palpable polyps, masses, or ulcerations. Scope was inserted in the rectum encountering stools. Scope was then advanced through the rectum into the sigmoid and again encountering a large stool load, which is not giving adequate visualization. Therefore, the scope was then slowly retracted back to completely remove, noting no gross pathology. The patient tolerated procedure well without any complications, taken to recovery room in stable condition. RECOMMENDATIONS: The patient will follow up on pathology. We discussed repeating colon prep for evaluation or a barium enema or CT scan with rectal contrast for possible further evaluation. Job ID: [id number] DocumentID: [id number] Dictated Date: 06/10/2021 09:50:23 Tobacco Warehouse Agent Date: 06/10/2021 14:32:11 Dictated By: YESSI PADILLA DO
== END 2021-06-10 12:00 | disposition home or self-care (01) ==
LOC: ENDO 08:20
PROVIDERS: ATTEND Surgery
DX: K31.7 Polyp of stomach and duodenum (principal); D50.9 Iron deficiency anemia, unspecified; K92.1 Melena; I12.0 Hypertensive chronic kidney disease with stage 5 chronic kidney disease or end stage renal disease; E11.22 Type 2 diabetes mellitus with diabetic chronic kidney disease; N18.6 End stage renal disease; Z99.2 Dependence on renal dialysis

== ENCOUNTER → 2022-09-29 | Outpatient (CLI) | payer MEDICAID, MEDICARE, OTHER ==
[~2022-09-29] MED LIST changes: -INSU100I29 SQ; +INSU100I30 SQ; +OMEP20TA56 PO; -OMEP20TA7 PO
--- NOTE | 2022-09-29 13:56 | Diagnostic Imaging Report ---
INDICATION: Right lower extremity edema. COMPARISON: None. TECHNIQUE: Duplex, burch-scale and color-flow imaging of the right lower extremity venous system was performed. FINDINGS: The common femoral vein, superficial femoral vein, profunda femoris, and popliteal veins are normal. These vessels show normal compressibility, color flow, and doppler augmentation. The deep calf veins, although not very well seen, demonstrate no distinct intraluminal thrombus. IMPRESSION: Negative venous Doppler of the right lower extremity. Dictated by: Dictated on workstation # [id number]
== END ==
LOC: RAD 12:40
PROVIDERS: ATTEND Nurse Practitioner Family
DX: R60.0 Localized edema (principal)